=== PATIENT | female | born 1940 | race Caucasian/White ===

== ENCOUNTER 2016-09-10 22:31 | Emergency (ER) | payer MEDICARE, BC ==
[~2016-09-10 22:31] MED LIST: ALBU0.08 NEB; ALPR0.25 PO; ASPI325T PO; CITA20TA4 PO; DOCU1CAP39 PO; FELO10TA PO; HYDR-3516 PO; HYDR10TA23 PO; LANTINJ SQ; LEVA750T PO; LEVO-168 PO; METO25TA3 PO; QUIN40TA2 PO; SYMB160A INH; ZETI10TA5 PO
[2016-09-10 22:36] VITALS: BP 189/77; PULSE 86; RESP 20; TEMP 97.8; O2SAT 95
[2016-09-11] MEDS ORDERED: ACETAMINOPHEN/HYDROcodone 325 MG/5 MG TAB PO ONE (00:15)
--- NOTE | 2016-09-11 01:56 | PD ---
HPI Chief Complaint: Fall Time Seen by Provider: 23:53 Travel History International Travel<30 days: No Contact w/Intl Traveler<30days: No Traveled to known affect area: No History of Present Illness HPI This is a 75-year-old female who presents to the emergency department having had a mechanical fall where she slipped because she had some lotion in her socks and hit her head. She does take a baby aspirin every day. She is reporting a moderate severity headache, constant, worse with movement, improved with rest and also has severe pain from her right elbow up to her right shoulder. She also has pain in her right knee and is having some difficulty walking. She did not lose consciousness and has not vomited. PFSH Past Medical History Hx Anticoagulant Therapy: Yes (ASPIRIN ) Arthritis: Yes Asthma: Yes Anxiety: Yes Depression: Yes Heart Rhythm Problems: Yes (Irregular) Cancer: No Cardiac Catheterization: Yes Cardiovascular Problems: Yes (Stent) High Cholesterol: Yes Chest Pain: No Congestive Heart Failure: No COPD: No Cerebrovascular Accident: No Diabetes: Yes Patient Takes Glucophage: No Diminished Hearing: No Diverticulitis: Yes Endocrine: Yes Gastrointestinal Disorders: Yes (Diverticulatis, Abdominal Surgery) GERD: Yes Genitourinary: No Headaches: No Hepatitis: No Hiatal Hernia: Yes Hypertension: Yes Immune Disorder: No Implanted Vascular Access Dvce: Yes Kidney Stones: No Medical other: Yes (POLYPS) Musculoskeletal: Yes (Arthritis, Neck) Neurologic: Yes (Neuropathy ) Psychiatric: Yes Reproductive: No Respiratory: Yes Immunizations Current: No (PT ALLERGIC TO EGGS- DOES NOT GET IMMUNIZATIONS) Migraines: No Renal Failure: No Seizures: No Sleep Apnea: No Thyroid Disease: Yes (Hypothyrodism) Ulcer: Yes Menopausal: Yes : 4 Para: 4 Miscarriage: 0 : 0 Past Surgical History Abdominal Surgery: Yes (COLOSTOMY, REVERSAL OF COLOSTOMY) AICD: No Body Medical Devices: Cardiac stent, Bilateral knees Cardiac Surgery: Yes (CORONARY STENTS) Coronary Stent: Yes Ear Surgery: No Endocrine Surgery: No Eye Surgery: No Genitourinary Surgery: No Gynecologic Surgery: Yes (HYSTERECTOMY) Hysterectomy: Yes Joint Replacement: Yes (BETZAIDA. KNEES) Neurologic Surgery: No Oral Surgery: No Pacemaker: No Thoracic Surgery: No Other Surgery: Yes (Abdominal, Bilateral knee, Stent) Social History Alcohol Use: No Tobacco Use: No Substance Use: No Allergies-Medications (Allergen,Severity, Reaction): Coded Allergies: Egg Allergy (Verified Allergy, Severe, DYSPNEA, SWELLING, 09/10/16) WHEN MIXED WITH CULTURES FOR IMMUNIZATIONS Erythromycin (Verified Allergy, Severe, HIVES, TROUBLE BREATHING, 09/10/16) Iodine (Verified Allergy, Severe, SWELLING, 09/10/16) Molds and Smuts (Verified Allergy, Severe, ITCHING, 09/10/16) DYSPNEA Penicillin (Verified Allergy, Severe, STOPS BREATHING, 09/10/16) Seafood (Verified Allergy, Severe, HIVES, 09/10/16) Sulfa (Verified Allergy, Severe, STOPS BREATHING, "SULFA POISONING", ) Metformin (Verified Adverse Reaction, Severe, DIARRHEA, GASTRIC CRAMPING, 09/10/16) Morphine (Verified Adverse Reaction, Unknown, STATES MAKES HER "TOO SLEEPY " - REFUSES, 09/10/16) Uncoded Allergies: MERCURY (Allergy, Severe, 09/10/16) Reported Meds & Prescriptions Reported Meds & Active Scripts Active Metoprolol Tartrate 25 Mg Tab 25 Mg PO BID Dok (Docusate Sodium) 100 Mg Cap 100 Mg PO BID Reported Symbicort Inh (Budesonide/Formoterol Fumarate) 160-4.5 Mcg/Act Aero 1 Puff INH Q12HR Hydrocodone-Acetaminophen 5-325 mg Tab 1 Tab PO Q6H PRN Hydralazine (Hydralazine HCl) 10 Mg Tab 10 Mg PO TID Take with a meal Albuterol Neb (Albuterol Sulfate) 2.5 Mg/3 Ml Neb 2.5 Mg NEB QID NEB Alprazolam 0.25 Mg Tab 0.25 Mg PO Q12HR PRN Quinapril (Quinapril HCl) 40 Mg Tab 40 Mg PO BID Citalopram (Citalopram Hydrobromide) 20 Mg Tab 40 Mg PO DAILY Lantus Solostar Pen Inj (Insulin Glargine) 300 Unit/3 Ml Pen 40 Units SQ BID Aspirin 325 Mg Tab 81 Mg PO DAILY Zetia (Ezetimibe) 10 Mg Tab 10 Mg PO DAILY Levothyroxine (Levothyroxine Sodium) 112 Mcg Tab 125 Mcg PO DAILY Felodipine ER (Felodipine) 10 mg Tree 10 Mg PO DAILY Review of Systems Except as stated in HPI: all other systems reviewed are Neg Physical Exam Narrative GENERAL:Well appearing, no acute distress SKIN: Right periOrbital ecchymoses HEAD: Atraumatic. Normocephalic. EYES: Pupils equal and round. No injection or drainage. ENT: Moist mucous membranes NECK: Trachea midline. No cervical spine tenderness, full painless range of motion of the neck. CARDIOVASCULAR: Regular rate and rhythm. No murmur appreciated. Plus right radial pulse with normal capillary refill. RESPIRATORY: Clear to auscultation. Breath sounds equal bilaterally. GASTROINTESTINAL: Abdomen soft, non-tender, nondistended. MUSCULOSKELETAL: Severe pain with flexion and extension at the right elbow, tender to palpation along the medial and lateral epicondyles of the elbow and along the proximal humerus. Tender to palpation over the right patella with pain with flexion at the right knee. NEUROLOGICAL: Awake and alert. No obvious cranial nerve deficits. Moving all extremities. PSYCHIATRIC: Appropriate mood and affect; insight and judgment normal. Data Data Last Documented VS Vital Signs Date Time Temp Pulse Resp B/P Pulse Ox O2 Delivery O2 Flow Rate FiO2 09/11/16 00:00 68 18 09/10/16 22:36 97.8 189/[address] Brain W/O Iv Contrast(Rout) (09/11/16 ) Ct Facial Bones W/O Iv Cont (09/11/16 ) Humerus (Min 2vws) (09/11/16 ) Elbow, Limited (Ap&Lat) (09/11/16 ) Knee, Complete (4vws) (09/11/16 ) Acetamin-Hydrocod 325-5 Mg (Hardin 5-325 (09/11/16 00:15) Shoulder, Complete (>2vws) (09/11/16 ) [facility] Medical Decision Making Medical Screen Exam Complete: Yes Emergency Medical Condition: Yes Interpretation(s) Afebrile, no tachycardia, hypertensive Differential Diagnosis X-ray of the right shoulder: Findings suggestive of a nondisplaced fracture at the junction of the humeral head and greater tuberosity Narrative Course This is a 75-year-old female who presents to the emergency department having had a mechanical fall. She had a CT of the head and face which was reassuring with no evidence of intracranial hemorrhage. X-rays demonstrate a proximal humerus fracture. She has a normal neurovascular exam. Patient will be discharged with a sling and swath and will follow-up with orthopedics. Diagnosis Primary Impression: Proximal humerus fracture Qualified Code: S42.201A - Closed fracture of proximal end of right humerus, unspecified fracture morphology, initial encounter Referrals: Carlyle Hayes MD Patient Instructions: General Instructions Additional Instructions: If you develop numbness, weakness, severe pain or coolness of your hand return to the emergency room. Follow-up with orthopedics as soon as possible. Med/Other Pt SpecificInfo: No Change to Meds Disposition: 01 DISCHARGE HOME Condition: Stable Mame Coburn MD Sep 11, 2016 01:56
--- NOTE | 2016-09-11 03:24 | RADRPT ---
EXAM DATE/TIME: 09/11/2016 01:13 [facility] COMPARISON: No previous studies available for comparison. INDICATIONS : Right proximal humerus pain post fall. MEDICAL HISTORY : None. SURGICAL HISTORY : None. ENCOUNTER: Initial ACUITY: 1 day PAIN SCORE: 10/10 LOCATION: Right proximal humerus. FINDINGS: Mid shaft of the humerus is grossly intact. No fracture seen. There is unusual configuration to the humeral head suggesting widening. No radiopaque foreign bodies seen. CONCLUSION: 1. The shaft of the humerus is grossly intact. 2. Unusual configuration to the humeral head. Recommend 5 view examination of the right shoulder for further characterization John Chisholm MD on September 11, 2016 at 3:21 Board Certified Radiologist. This report was verified electronically.
--- NOTE | 2016-09-11 03:25 | RADRPT ---
EXAM DATE/TIME: 09/11/2016 01:15 [facility] COMPARISON: No previous studies available for comparison. INDICATIONS : Right elbow pain post fall. MEDICAL HISTORY : None. SURGICAL HISTORY : None. ENCOUNTER: Initial ACUITY: 1 day PAIN SCORE: 2/10 LOCATION: Right elbow. FINDINGS: Two view examination of the right elbow demonstrates no soft tissue swelling, joint effusion, fractur e or dislocation. Bony mineralization is normal. CONCLUSION: No evidence of recent bony injury. John Chisholm MD on September 11, 2016 at 3:23 Board Certified Radiologist. This report was verified electronically.
--- NOTE | 2016-09-11 03:26 | RADRPT ---
EXAM DATE/TIME: 09/11/2016 01:16 [facility] COMPARISON: No previous studies available for comparison. INDICATIONS : Right knee pain post fall. MEDICAL HISTORY : None. SURGICAL HISTORY : Total knee replacement, right. ENCOUNTER: Initial ACUITY: 1 day PAIN SCORE: 6/10 LOCATION: Right knee. FINDINGS: 4 view examination of the knee was performed. Non-cemented total knee arthroplasty with intact hardw are. Osseous structures are in normal alignment. The suprapatellar soft tissues are normal in thick ness. No radiopaque foreign bodies. No fracture seen. CONCLUSION: Intact total knee arthroplasty. No evidence of recent bony injury. John Chisholm MD on September 11, 2016 at 3:23 Board Certified Radiologist. This report was verified electronically.
--- NOTE | 2016-09-11 03:39 | RADRPT ---
EXAM DATE/TIME: 09/11/2016 01:49 [facility] COMPARISON: No previous studies available for comparison. INDICATIONS : Trauma; fall. RADIATION DOSE: 45.79 CTDIvol (mGy) MEDICAL HISTORY : Hypertension. Cardiovascular disease Diabetes mellitus type 2. SURGICAL HISTORY : Hysterectomy. Colostomy.Total knee replacement, left.Total knee replacement, right ENCOUNTER: Initial ACUITY: 1 day PAIN SCALE: 6/10 LOCATION: cranial TECHNIQUE: Multiple contiguous axial images were obtained of the head. Using automated exposure control and adj ustment of the mA and/or kV according to patient size, radiation dose was kept as low as reasonably a chievable to obtain optimal diagnostic quality images. FINDINGS: CEREBRUM: The ventricles are normal for age. No evidence of midline shift, mass lesion, hemorrhage or acute in farction. No extra-axial fluid collections are seen. POSTERIOR FOSSA: The cerebellum and brainstem are intact. The 4th ventricle is midline. The cerebellopontine angle i s unremarkable. EXTRACRANIAL: The visualized portion of the orbits is intact. There is opacification of the right maxillary sinus, mucosal thickening in the left maxillary sinus, and opacified bilateral superior ethmoid air cells. SKULL: The calvaria is intact. No evidence of skull fracture. CONCLUSION: 1. No acute findings in the brain. 2. Bilateral maxillary and ethmoid sinus disease. John Chisholm MD on September 11, 2016 at 3:36 Board Certified Radiologist. This report was verified electronically.
--- NOTE | 2016-09-11 03:41 | RADRPT ---
EXAM DATE/TIME: 09/11/2016 01:49 [facility] COMPARISON: No previous studies available for comparison. INDICATIONS : Trauma; fall. RADIATION DOSE: 36.81 CTDIvol (mGy) MEDICAL HISTORY : Hypertension. Cardiovascular disease Diabetes mellitus type 2. SURGICAL HISTORY : Hysterectomy. Colostomy.Total knee replacement, left.Total knee replacement, right ENCOUNTER: Initial ACUITY: 1 day PAIN SCORE: 6/10 LOCATION: facial TECHNIQUE: Volumetric scanning of the facial bones was performed. Using automated exposure control and adjustme nt of the mA and/or kV according to patient size, radiation dose was kept as low as reasonably achiev able to obtain optimal diagnostic quality images. FINDINGS: ORBITS: The orbital and infraorbital osseous structures are intact. The retroconal structures have a normal configuration. No radiopaque foreign bodies are seen. NASAL BONE: The nasal bone and maxillary spine are intact ZYGOMATIC ARCHES: Symmetric without evidence of fracture. SINUSES: Opacification of the right maxillary sinus, diffuse mucosal thickening in the left maxillary sinus, o pacified mid and superior ethmoid air cells, mucosal thickening in the lateral recess of the right sp henoid sinus, and mucosal thickening in the medial aspect of both frontal sinuses. NASAL CAVITY: The nasal septum is intact and midline. The lacrimal ducts are intact. SOFT TISSUES: No radiopaque foreign bodies seen. No soft-tissue swelling is seen. INTRACRANIAL: No intracranial air seen. CRIBIFORM PLATE: Grossly intact. CONCLUSION: 1. No facial bone fracture seen. 2. Pansinus disease. John Chisholm MD on September 11, 2016 at 3:37 Board Certified Radiologist. This report was verified electronically.
--- NOTE | 2016-09-11 04:33 | RADRPT ---
EXAM DATE/TIME: 09/11/2016 03:13 [facility] COMPARISON: No previous studies available for comparison. INDICATIONS : Right shoulder pain post fall. MEDICAL HISTORY : None. SURGICAL HISTORY : None. ENCOUNTER: Initial ACUITY: 1 day PAIN SCORE: 10/10 LOCATION: Right shoulder. FINDINGS: 4 view examination of the shoulder demonstrates normal alignment of the proximal humerus with the gle noid. There is a lucency seen at the junction of the greater tuberosity and humeral head, discernibl e on 3 of the 4 views, suggesting a nondisplaced fracture. The a.c. joint is intact. The visualized right upper ribs are intact. CONCLUSION: Findings suggestive nondisplaced fracture at the junction of the humeral head and greater tuberosity. John Chisholm MD on September 11, 2016 at 4:30 Board Certified Radiologist. This report was verified electronically.
[2016-09-11 05:09] VITALS: BP 165/92; PULSE 82; RESP 16; O2SAT 98
== END 2016-09-11 05:12 | disposition home or self-care (01) ==
LOC: NEPE 22:31
DX: S42.201A Unspecified fracture of upper end of right humerus, initial encounter for closed fracture (principal); R51 Headache; M25.561 Pain in right knee; E11.9 Type 2 diabetes mellitus without complications; I10 Essential (primary) hypertension; E03.9 Hypothyroidism, unspecified; E78.00 Pure hypercholesterolemia, unspecified; W01.10XA Fall on same level from slipping, tripping and stumbling with subsequent striking against unspecified object, initial encounter; Y93.9 Activity, unspecified; Y92.9 Unspecified place or not applicable; Z79.4 Long term (current) use of insulin
CPT/HCPCS: 29240; 70450; 70486; 73030; 73060; 73070; 73564

== ENCOUNTER 2016-10-11 12:37 | Inpatient (IN) | payer MEDICARE, BC ==
[~2016-10-11] VITALS: Ht 149.9 cm; Wt 97.1 kg
[2016-10-11] VITALS (14 sets, daily range): BP systolic 129–199; BP diastolic 54–91; PULSE 68–95; RESP 20–44; TEMP 97.8–97.9; O2SAT 97–100
[~2016-10-11 12:37] MED LIST changes: -LEVA750T PO
[2016-10-11] MEDS ORDERED: ALBUAER3 INH (13:07)
[2016-10-11] MEDS ORDERED: ASPI81CH7 CHEW (13:07)
[2016-10-11] MEDS ORDERED: ASTELIN NASAL (13:07)
[2016-10-11] MEDS ORDERED: HYDR200T3 PO (13:07)
[2016-10-11] MEDS ORDERED: methylPREDNISolone SOD SUCC 125 MG/2 ML VIAL IVP ONE (13:15)
[2016-10-11] MEDS ORDERED: SODIUM CHLORIDE 0.9% FLUSH 10 ML FLUSH IVF PRN (13:15)
[2016-10-11] MEDS ORDERED: cefTRIAXone INJ 1,000 MG in SODIUM CHLORIDE 0.9% INJ 100 ML IV ONE (13:15)
[2016-10-11] MEDS: RESP: ALBUTEROL 2.5 MG/IPRATROPIUM 0.5 MG NEB (SCH) INH ×2 (13:19→13:20)
[2016-10-11 13:26] LABS: AUTOMATED NEUTROPHIL # 7.1 TH/MM3 (1.8-7.7); BASOPHIL # 0.1 TH/MM3 (0-0.2); BASOPHIL % 1.4 % (0.0-2.0); EOSINOPHIL # 0.2 TH/MM3 (0-0.4); EOSINOPHIL % 2.4 % (0.0-4.0); HEMATOCRIT 33.6 % (35.0-46.0); HEMO FLAGS DIFF FINAL; LYMPH % 11.7 % (9.0-44.0); LYMPHOCYTE # 1.1 TH/MM3 (1.0-4.8); MEAN CELL VOLUME 80.1 FL (80.0-100.0); MEAN CORPUSCULAR HEMOGLOBIN 26.8 PG (27.0-34.0); MEAN CORPUSCULAR HGB CONC 33.4 % (32.0-36.0); MONO % 6.4 % (0.0-8.0); NEUT % 78.1 % (16.0-70.0); PLATELET COUNT 470 TH/MM3 (150-450); RED BLOOD COUNT 4.19 MIL/MM3 (4.00-5.30); RED CELL DISTRIBUTION WIDTH 15.5 % (11.6-17.2); WHITE BLOOD COUNT 9.1 TH/MM3 (4.0-11.0)
[2016-10-11 13:36] LABS: CHLORIDE 100 MEQ/L (98-107); POTASSIUM 4.5 MEQ/L (3.5-5.1); SODIUM (NA) 136 MEQ/L (136-145)
--- NOTE | 2016-10-11 13:37 | PD ---
HPI Chief Complaint: Respiratory Symptoms Time Seen by Provider: 12:54 Travel History International Travel<30 days: No Contact w/Intl Traveler<30days: No Traveled to known affect area: No History of Present Illness HPI 75-year-old female arrives to the ER complaining of dyspnea. She was seen at urgent care clinic and they diagnosed a left lung pneumonia. She complains of chills earlier today. Initially upon arrival due to dyspnea and anxiety and history is limited to that provided by the urgent care center paperwork. He sepsis/pneumonia protocol was initiated and the patient additionally received breathing treatments and Solu-Medrol. PFSH Past Medical History Hx Anticoagulant Therapy: Yes (ASA 325MG DAILY) Arthritis: Yes Asthma: Yes Anxiety: Yes Depression: Yes Heart Rhythm Problems: Yes (Irregular) Cancer: No Cardiac Catheterization: Yes Cardiovascular Problems: Yes (Stent) High Cholesterol: Yes Chest Pain: No Congestive Heart Failure: No COPD: No Cerebrovascular Accident: No Diabetes: Yes Patient Takes Glucophage: No Diminished Hearing: No Diverticulitis: Yes Endocrine: Yes Gastrointestinal Disorders: Yes (Diverticulatis, Abdominal Surgery) GERD: Yes Genitourinary: No Headaches: No Hepatitis: No Hiatal Hernia: Yes Hypertension: Yes Immune Disorder: No Implanted Vascular Access Dvce: Yes Kidney Stones: No Medical other: Yes (POLYPS) Musculoskeletal: Yes (Arthritis, Neck) Neurologic: Yes (Neuropathy ) Psychiatric: Yes Reproductive: No Immunizations Current: No (PT ALLERGIC TO EGGS- DOES NOT GET IMMUNIZATIONS) Migraines: No Renal Failure: No Seizures: No Sleep Apnea: No Thyroid Disease: Yes (Hypothyrodism) Ulcer: Yes Tetanus Vaccination: Unknown ?: Not Menopausal: Yes : 4 Para: 4 Miscarriage: 0 : 0 Past Surgical History Abdominal Surgery: Yes (COLOSTOMY, REVERSAL OF COLOSTOMY) AICD: No Body Medical Devices: Cardiac stent, Bilateral knees Cardiac Surgery: Yes (CORONARY STENTS) Coronary Stent: Yes Ear Surgery: No Endocrine Surgery: No Eye Surgery: No Genitourinary Surgery: No Gynecologic Surgery: Yes (HYSTERECTOMY) Hysterectomy: Yes Joint Replacement: Yes (BETZAIDA. KNEES) Neurologic Surgery: No Oral Surgery: No Pacemaker: No Thoracic Surgery: No Other Surgery: Yes (Abdominal, Bilateral knee, Stent) Social History Alcohol Use: No Tobacco Use: No Substance Use: No Allergies-Medications (Allergen,Severity, Reaction): Coded Allergies: Egg Allergy (Verified Allergy, Severe, DYSPNEA, SWELLING, 10/11/16) WHEN MIXED WITH CULTURES FOR IMMUNIZATIONS Erythromycin (Verified Allergy, Severe, HIVES, TROUBLE BREATHING, 10/11/16) Iodine (Verified Allergy, Severe, SWELLING, 10/11/16) Molds and Smuts (Verified Allergy, Severe, ITCHING, 10/11/16) DYSPNEA Penicillin (Verified Allergy, Severe, STOPS BREATHING, 10/11/16) Seafood (Verified Allergy, Severe, HIVES, 10/11/16) Sulfa (Verified Allergy, Severe, STOPS BREATHING, "SULFA POISONING", ) Metformin (Verified Adverse Reaction, Severe, DIARRHEA, GASTRIC CRAMPING, 10/11/16) Morphine (Verified Adverse Reaction, Unknown, STATES MAKES HER "TOO SLEEPY " - REFUSES, 10/11/16) Uncoded Allergies: MERCURY (Allergy, Severe, 09/10/16) Reported Meds & Prescriptions Reported Meds & Active Scripts Active Metoprolol Tartrate 25 Mg Tab 25 Mg PO BID Dok (Docusate Sodium) 100 Mg Cap 100 Mg PO BID Reported Proair Hfa 8.5 GM Inh (Albuterol Sulfate) 90 Mcg/Act Aer 1 Puff INH Q4H PRN 108 mcg/actuation Hydroxychloroquine (Hydroxychloroquine Sulfate) 200 Mg Tab 200 Mg PO DAILY Takw with food [Astelin Nasal] Aspirin Children's (Aspirin) 81 Mg Chew 81 Mg CHEW DAILY Symbicort Inh (Budesonide/Formoterol Fumarate) 160-4.5 Mcg/Act Aero 1 Puff INH Q12HR Hydrocodone-Acetaminophen 5-325 mg Tab 1 Tab PO Q6H PRN Hydralazine (Hydralazine HCl) 10 Mg Tab 10 Mg PO TID Take with a meal Albuterol Neb (Albuterol Sulfate) 2.5 Mg/3 Ml Neb 2.5 Mg NEB QID NEB Alprazolam 0.25 Mg Tab 0.25 Mg PO Q12HR PRN Quinapril (Quinapril HCl) 40 Mg Tab 40 Mg PO BID Citalopram (Citalopram Hydrobromide) 20 Mg Tab 40 Mg PO DAILY Lantus Solostar Pen Inj (Insulin Glargine) 300 Unit/3 Ml Pen 50 Units SQ BID Zetia (Ezetimibe) 10 Mg Tab 10 Mg PO DAILY Levothyroxine (Levothyroxine Sodium) 112 Mcg Tab 125 Mcg PO DAILY Felodipine ER (Felodipine) 10 mg Tree 10 Mg PO DAILY Review of Systems ROS Limitations: Clinical Condition Physical Exam Narrative GENERAL: 75-year-old female mild to moderate distress secondary to dyspnea or shortness of breath SKIN: Focused skin assessment warm/dry. HEAD: Atraumatic. Normocephalic. EYES: Pupils equal and round. No scleral icterus. No injection or drainage. ENT: No nasal bleeding or discharge. Mucous membranes pink and moist. NECK: Trachea midline. No JVD. CARDIOVASCULAR: Regular rate and rhythm. No murmur appreciated. RESPIRATORY: Minimal tachypnea. Minimal dyspnea. Diminished breath sounds L base. GASTROINTESTINAL: Abdomen soft, non-tender, nondistended. Hepatic and splenic margins not palpable. MUSCULOSKELETAL: No obvious deformities. No clubbing. No cyanosis. No edema. NEUROLOGICAL: Awake and alert. No obvious cranial nerve deficits. Motor grossly within normal limits. Normal speech. PSYCHIATRIC: Appropriate mood and affect; insight and judgment normal. Data Data Last Documented VS Vital Signs Date Time Temp Pulse Resp B/P Pulse Ox O2 Delivery O2 Flow Rate FiO2 10/11/16 13:21 28 99 2 10/11/16 13:20 Nasal Cannula 10/11/16 12:39 97.9 68 129/59 VS reviewed Orders Complete Blood Count With Diff (10/11/16 13:08) Basic Metabolic Panel (Bmp) (10/11/16 13:08) B-Type Natriuretic Peptide (10/11/16 13:08) Act Partial Throm Time (Ptt) (10/11/16 13:08) Prothrombin Time / Inr (Pt) (10/11/16 13:08) Ckmb (Isoenzyme) Profile (10/11/16 13:08) Troponin I (10/11/16 13:08) Blood Culture (10/11/16 13:08) Iv Access Insert/Monitor (10/11/16 13:08) Electrocardiogram (10/11/16 13:08) Ecg Monitoring (10/11/16 13:08) Oximetry (10/11/16 13:08) Oxygen Administration (10/11/16 13:08) Chest, Single Ap (10/11/16 13:08) Sodium Chloride 0.9% Flush (Ns Flush) (10/11/16 13:15) Methylprednisolone So Succ Inj (Solumedr (10/11/16 13:15) Albuterol-Ipratropium Neb (Duoneb Neb) (10/11/16 13:15) Ceftriaxone Inj (Rocephin Inj) (10/11/16 13:15) Doxycycline Inj (Vibramycin Inj) (10/11/16 14:15) Lactic Acid (10/11/16 13:20) Lorazepam Inj (Ativan Inj) (10/11/16 13:45) CKMB (10/11/16 13:15) CKMB% (10/11/16 13:15) Admit Order (Ed Use Only) (10/11/16 14:48) Labs Laboratory Tests Test 10/11/16 13:15 White Blood Count 9.1 TH/MM3 Red Blood Count 4.19 MIL/MM3 Hemoglobin 11.2 GM/DL Hematocrit 33.6 % Mean Corpuscular Volume 80.1 FL Mean Corpuscular Hemoglobin 26.8 PG Mean Corpuscular Hemoglobin 33.4 % Concent Red Cell Distribution Width 15.5 % Platelet Count 470 TH/MM3 Mean Platelet Volume 7.8 FL Neutrophils (%) (Auto) 78.1 % Lymphocytes (%) (Auto) 11.7 % Monocytes (%) (Auto) 6.4 % Eosinophils (%) (Auto) 2.4 % Basophils (%) (Auto) 1.4 % Neutrophils # (Auto) 7.1 TH/MM3 Lymphocytes # (Auto) 1.1 TH/MM3 Monocytes # (Auto) 0.6 TH/MM3 Eosinophils # (Auto) 0.2 TH/MM3 Basophils # (Auto) 0.1 TH/MM3 CBC Comment DIFF FINAL Differential Comment Prothrombin Time 10.0 SEC Prothromb Time International 0.9 RATIO Ratio Activated Partial 26.1 SEC Thromboplast Time D-Dimer Quantitative (PE/DVT) 0.56 MG/L FEU Sodium Level 136 MEQ/L Potassium Level 4.5 MEQ/L Chloride Level 100 MEQ/L Carbon Dioxide Level 23.4 MEQ/L Anion Gap 13 MEQ/L Blood Urea Nitrogen 17 MG/DL Creatinine 1.10 MG/DL Estimat Glomerular Filtration 48 ML/MIN Rate Random Glucose 220 MG/DL Lactic Acid Level 4.1 mmol/L Calcium Level 8.5 MG/DL Total Creatine Kinase 119 U/L Creatine Kinase MB 2.0 NG/ML Troponin I LESS THAN 0.02 NG/ML B-Type Natriuretic Peptide 41 PG/ML MDM Medical Decision Making Medical Screen Exam Complete: Yes Emergency Medical Condition: Yes Medical Record Reviewed: Yes Differential Diagnosis PNA, copd exacerbation, renal failure, sepsis, anemia, esrd Narrative Course CBC & BMP Diagram 10/11/16 13:15 LA 4.1 TSH 3.41 Tn < 0.02 Pt will be admitted for a L base pna and dyspnea. She improved with breathing treatments. Quite anxious 0.5 ativan given. d/w Dr Dupont. Diagnosis Primary Impression: PNA (pneumonia) Qualified Code: J18.1 - Pneumonia of left lower lobe due to infectious organism Additional Impression: Dyspnea Qualified Code: R06.00 - Dyspnea, unspecified type Admitting Information Admitting Physician Requests: AdmKaden Roy MD Oct 11, 2016 13:37
[2016-10-11 13:39] LABS: ANION GAP 13 MEQ/L (5-15); BICARBONATE 23.4 MEQ/L (21.0-32.0)
[2016-10-11 13:40] LABS: BLOOD UREA NITROGEN 17 MG/DL (7-18)
[2016-10-11 13:43] LABS: GLOMERULAR FILTRATION RATE 48 ML/MIN (>89)
[2016-10-11] MEDS ORDERED: LORazepam 2 MG/ML VIAL IV PUSH ONE (13:45)
[2016-10-11 13:46] LABS: CREATINE KINASE 119 U/L (26-192)
--- NOTE | 2016-10-11 13:51 | RADHPO ---
EXAM DATE/TIME: 10/11/2016 13:19 [facility] COMPARISON: CHEST SINGLE AP, June 16, 2016, 4:35. INDICATIONS : Shortness of breath and fever. MEDICAL HISTORY : Afib. Asthma. Hiatal hernia. Diabetes. SURGICAL HISTORY : Coronary stents. Cardiac cath. ENCOUNTER: Initial ACUITY: 1 day PAIN SCORE: 0/10 LOCATION: Bilateral chest FINDINGS: A single view of the chest demonstrates the lungs to be symmetrically aerated without evidence of mas s, infiltrate or effusion. The cardiomediastinal contours are unremarkable. Osseous structures are intact. CONCLUSION: No acute disease. Hector An MD on October 11, 2016 at 13:49 Board Certified Radiologist. This report was verified electronically.
[2016-10-11 13:52] LABS: APTT (PATIENT) 26.1 SEC (24.3-30.1); INTERNATIONAL NORMALIZED RATIO 0.9 RATIO
[2016-10-11] MEDS ORDERED: DOXYCYCLINE INJ 100 MG in SODIUM CHLORIDE 0.9% INJ 100 ML IV ONE (14:15)
[2016-10-11] MEDS ORDERED: NALOXONE HCL 0.4 MG/ML AMP IV PRN (15:00)
[2016-10-11] MEDS ORDERED: SODIUM CHLORIDE 0.9% FLUSH 10 ML FLUSH IV FLUSH PRN (15:00)
[2016-10-11] MEDS: LEVOFLOXACIN 750 MG PREMIX INJ 150 ML IV SCH (15:29)
[2016-10-11] MEDS: RESP: ALBUTEROL 2.5 MG/3 ML NEB (SCH) INH ×2 (15:50→20:00)
[2016-10-11 16:22] LABS: BLOOD, URINE NEG (NEG); GLUCOSE,URINE NEG (NEG); KETONE, URINE TRACE mg/dL (NEG); NITRITE,URINE NEG (NEG)
[2016-10-11] MEDS: ALPRAZolam 0.25 MG TAB PO PRN (16:27)
--- NOTE | 2016-10-11 16:32 | HHI.HP ---
[facility] [place] Jeimy Fontenot MD Admission Diagnosis PNA (L Lung Base) Diagnoses: (1) Shortness of breath Diagnosis: Principal (2) Chest pain Diagnosis: Principal (3) Lactic acidosis Diagnosis: Principal (4) Nausea & vomiting Diagnosis: Principal Chief Complaint: Chest pain and shortness of breath Travel History International Travel<30 Days: No Contact w/Intl Traveler <30 Da: No Traveled to Known Affected Are: No Sepsis Criteria SIRS Criteria (2 or more): RR > 20 or PaCO2 < 32 Sepsis Criteria (SIRS+source): Infect source susp/known Severe Sepsis (+one): Lactate >2 Septic Shock Criteria: Lactic acid >=4 History of Present Illness 75-year-old female with rather significant chronic medical illnesses of hypertension, diabetes, coronary artery disease, chronic obstructive pulmonary disease, arthritis, bowel obstructions requiring multiple resections, multiple abdominal hernias, fibromyalgia who presented to hospital because of acute onset of shortness of breath and chest pain. Patient states that she has a plethora of multiple symptoms to include general malaise, sinus congestion, nausea, fatigue, body aches, shortness of breath, chest pain that is been going on for approximately 3 days. Her symptoms progressed got worse and that 2:00 this morning and she had to get up and use her breathing machine without any significant improvement. The patient came to emergency department this morning for further evaluation. Patient was found to have multiple abnormalities to include hypoxia requiring oxygen, lactic acidosis and is recommended that the patient be admitted for further evaluation management. Tried to do further studies, however patient is refusing to have blood gas performed and possibly will refuse to have any further laboratory studies performed. Upon evaluating the patient she does look mildly uncomfortable lying in the bed. Review of Systems Constitutional: COMPLAINS OF: Fatigue, DENIES: Diaphoretic episodes, Fever, Weight gain, Weight loss, Chills, Dizziness, Change in appetite, Night Sweats Eyes: DENIES: Blurred vision, Diplopia, Eye inflammation, Eye pain, Vision loss , Photosensitivity, Double Vision Ears, nose, mouth, throat: DENIES: Tinnitus, Hearing loss, Vertigo, Nasal discharge, Oral lesions, Throat pain, Hoarseness, Ear Pain, Running Nose, Epistaxis, Sinus Pain, Toothache, Odynophagia Respiratory: COMPLAINS OF: Cough, Sputum production, Shortness of breath, DENIES: Apneas, Snoring, Wheezing, Hemoptysis Cardiovascular: COMPLAINS OF: Chest pain, DENIES: Palpitations, Syncope, Dyspnea on Exertion, Lower Extremity Edema, Orthopnea Gastrointestinal: COMPLAINS OF: Abdominal pain, Nausea, DENIES: Black stools, Bloody stools, Constipation, Diarrhea, Vomiting, Difficulty Swallowing, Anorexia Neurologic: DENIES: Abnormal gait, Headache, Localized weakness, Paresthesias, Seizures, Speech Problems, Tremor, Poor Balance Past Family Social History Past Medical History Hypertension Diabetes Fibromyalgia Chronic obstructive pulmonary disease Coronary artery disease Hypothyroidism Hyperlipidemia Gastroesophageal reflux Arthritis Lumbar stenosis Rheumatoid arthritis Past Surgical History Bilateral knee replacements Cardiac catheterization with cardiac stenting Hysterectomy Exploratory laparotomies Sigmoid resection and colostomy Reverse of colostomy Ventral hernia repair Exploratory laparotomy lysis of adhesions and bowel resection Reported Medications Reported Meds & Active Scripts Active Metoprolol Tartrate 25 Mg Tab 25 Mg PO BID Dok (Docusate Sodium) 100 Mg Cap 100 Mg PO BID Reported Proair Hfa 8.5 GM Inh (Albuterol Sulfate) 90 Mcg/Act Aer 1 Puff INH Q4H PRN 108 mcg/actuation Hydroxychloroquine (Hydroxychloroquine Sulfate) 200 Mg Tab 200 Mg PO DAILY Takw with food [Astelin Nasal] Aspirin Children's (Aspirin) 81 Mg Chew 81 Mg CHEW DAILY Symbicort Inh (Budesonide/Formoterol Fumarate) 160-4.5 Mcg/Act Aero 1 Puff INH Q12HR Hydrocodone-Acetaminophen 5-325 mg Tab 1 Tab PO Q6H PRN Hydralazine (Hydralazine HCl) 10 Mg Tab 10 Mg PO TID Take with a meal Albuterol Neb (Albuterol Sulfate) 2.5 Mg/3 Ml Neb 2.5 Mg NEB QID NEB Alprazolam 0.25 Mg Tab 0.25 Mg PO Q12HR PRN Quinapril (Quinapril HCl) 40 Mg Tab 40 Mg PO BID Citalopram (Citalopram Hydrobromide) 20 Mg Tab 40 Mg PO DAILY Lantus Solostar Pen Inj (Insulin Glargine) 300 Unit/3 Ml Pen 50 Units SQ BID Zetia (Ezetimibe) 10 Mg Tab 10 Mg PO DAILY Levothyroxine (Levothyroxine Sodium) 112 Mcg Tab 125 Mcg PO DAILY Felodipine ER (Felodipine) 10 mg Tree 10 Mg PO DAILY Allergies: Coded Allergies: Egg Allergy (Verified Allergy, Severe, DYSPNEA, SWELLING, 10/11/16) WHEN MIXED WITH CULTURES FOR IMMUNIZATIONS Erythromycin (Verified Allergy, Severe, HIVES, TROUBLE BREATHING, 10/11/16) Iodine (Verified Allergy, Severe, SWELLING, 10/11/16) Molds and Smuts (Verified Allergy, Severe, ITCHING, 10/11/16) DYSPNEA Penicillin (Verified Allergy, Severe, STOPS BREATHING, 10/11/16) Seafood (Verified Allergy, Severe, HIVES, 10/11/16) Sulfa (Verified Allergy, Severe, STOPS BREATHING, "SULFA POISONING", ) Metformin (Verified Adverse Reaction, Severe, DIARRHEA, GASTRIC CRAMPING, 10/11/16) Morphine (Verified Adverse Reaction, Unknown, STATES MAKES HER "TOO SLEEPY " - REFUSES, 10/11/16) Uncoded Allergies: MERCURY (Allergy, Severe, 09/10/16) Social History Patient denies any tobacco or illicit drugs. Very rare alcohol use Physical Exam Vital Signs Vital Signs Date Time Temp Pulse Resp B/P Pulse Ox O2 Delivery O2 Flow Rate FiO2 10/11/16 14:59 71 20 149/66 100 Room Air 10/11/16 13:21 28 99 2 10/11/16 13:20 99 Nasal Cannula 4.00 10/11/16 13:19 97 Nasal Cannula 2 10/11/16 12:52 28 98 Room Air 10/11/16 12:39 97.9 68 30 129/59 97 Physical Exam GENERAL: Well-developed, well-nourished, in no acute distress. alert and orientated HEENT: Head is normocephalic without any lesions or masses noted. Facial features are symmetric. Eyes: Pupils equal round reactive to light. Extraocular muscles are intact. Conjunctivae were clear. Oropharyngeal: Pharynx without any erythema edema. Tongue is midline without deviation. Buccal mucosa is moist without any masses or lesions NECK: Supple without any masses. Trachea midline no deviation. No JVD, no bruits are appreciated CARDIAC: Regular rhythm, regular rate. S1/S2 are heard. No murmurs gallops or rubs. LUNGS: Distant lung sounds with scattered wheeze. No rhonchi or rales. No use of accessory muscles on inspiration or expiration. ABDOMEN: Soft, nontender. Nondistended. Bowel sounds heard in all 4 quadrants. No organomegaly or masses. Negative rebound, negative guarding EXTREMITIES: No edema, pulses are equal bilaterally. No cyanosis or clubbing NEUROLOGY: Mood and affect appear appropriate. Cranial nerves II through XII grossly intact. Muscle strength 5/5 in upper and lower extremities bilaterally. Deep tendon reflexes are 2+ in upper and lower extremities bilaterally. Laboratory Laboratory Tests Test 10/11/16 10/11/16 13:15 15:20 White Blood Count 9.1 Red Blood Count 4.19 Hemoglobin 11.2 Hematocrit 33.6 Mean Corpuscular Volume 80.1 Mean Corpuscular Hemoglobin 26.8 Mean Corpuscular Hemoglobin 33.4 Concent Red Cell Distribution Width 15.5 Platelet Count 470 Mean Platelet Volume 7.8 Neutrophils (%) (Auto) 78.1 Lymphocytes (%) (Auto) 11.7 Monocytes (%) (Auto) 6.4 Eosinophils (%) (Auto) 2.4 Basophils (%) (Auto) 1.4 Neutrophils # (Auto) 7.1 Lymphocytes # (Auto) 1.1 Monocytes # (Auto) 0.6 Eosinophils # (Auto) 0.2 Basophils # (Auto) 0.1 CBC Comment DIFF FINAL Differential Comment Prothrombin Time 10.0 Prothromb Time International 0.9 Ratio Activated Partial 26.1 Thromboplast Time D-Dimer Quantitative (PE/DVT) 0.56 Sodium Level 136 Potassium Level 4.5 Chloride Level 100 Carbon Dioxide Level 23.4 Anion Gap 13 Blood Urea Nitrogen 17 Creatinine 1.10 Estimat Glomerular Filtration 48 Rate Random Glucose 220 Lactic Acid Level 4.1 5.2 Calcium Level 8.5 Total Creatine Kinase 119 Creatine Kinase MB 2.0 Troponin I LESS THAN 0.02 B-Type Natriuretic Peptide 41 Thyroid Stimulating Hormone 3.410 3rd Gen Date/Time Procedure Status Source Growth 10/11/16 13:22 Aerobic Blood Culture Received Blood Peripheral Pending 10/11/16 13:22 Anaerobic Blood Culture Received Blood Peripheral Pending Result Diagram: 10/11/16 1315 10/11/16 1315 Imaging Last Impressions Chest X-Ray 10/11/16 1308 Signed Impressions: Service Date/Time: Tuesday, October 11, 2016 13:19 - CONCLUSION: No acute disease. Hector An MD Septic Shock Reassessment Heart: Regular rate and rhythm Lungs: Other (wheezes) Skin: Warm, Moist Peripheral Pulses: Bounding Right Radial Bounding Left Radial Capillary Refill: Brisk, <2 seconds Assessment and Plan Assessment and Plan //Chest pain with associated shortness of breath, nausea Chest pain has been going on for probably 3 days, cardiac enzymes are unremarkable for any acute event, BMP is negative to indicate any congestive heart failure D-dimer performed which is 0.56, unable do CTA of the chest due to iodine allergy We'll perform VQ scan to rule out any pulmonary emboli Patient refusing to have blood gas analysis Obtain echocardiogram //Shortness of breath, dyspnea, hypoxia possible chronic obstructive pulmonary disease exacerbation Continue O2 supplementation maintain O2 sats greater 92% Duo nebs Incentive spirometry Levaquin 750 mg IV daily Solu-Medrol 40 every 6 hours //Lactic acidosis, unknown etiology at this time Could be from multiple etiologies to include infection, PE, mesenteric ischemia. Patient with multiple abdominal surgeries, hernias, Continue follow lactic acid level May need to pursue further studies to evaluate for mesenteric ischemia, if continues to worsen however would put patient at risk for renal complications due to contrast Continue monitor for infection with blood cultures, obtain influenza testing, Legionella, pneumococcal testing //Acute renal failure superimposed on chronic kidney disease stage 3: Start conservative IV fluids and continue monitor renal function Avoid nephrotoxins //Diabetes, insulin-dependent Accu-Cheks with sliding scale insulin Levemir 10 units every 12 hours //Chronic medical illnesses to include hyperlipidemia, anxiety, depression, hypothyroidism, rheumatoid arthritis, hypertension Continue home medications //Medical treatment noncompliance: Medical management discussed multiple times with a patient with present. It was recommended that further testing be performed to include arterial blood gas for further evaluation management. Patient continued to refuse to have further testing performed. //DVT prevention Start subcutaneous heparin Written by Manjit Hernandez PA-C, acting as scribe for Dr. Dupont on 10/11/16 at 1600. All or portions of this note were transcribed by scribe [Manjit Hernandez PA-C] . I, Dr. Christ Dupont personally performed the history, physical exam, and medical decision making; and confirmed the accuracy of the information in the transcribed note. Authenticated by Dr. Christ Dupont on 10/11/16 at 17:36. Code Status CODE STATUS was discussed with the patient with at bedside. She does not want any heroic measures to include intubation or CPR to be performed. Physician Certification 2 Midnight Certification Type: Admission for Inpatient Services Order for Inpatient Services The services are ordered in accordance with Medicare regulations or non- Medicare payer requirements, as applicable. In the case of services not specified as inpatient-only, they are appropriately provided as inpatient services in accordance with the 2-midnight benchmark. Estimated LOS (days): 3 days is the estimated time the patient will need to remain in the hospital, assuming treatment plan goals are met and no additional complications. Post-Hospital Plan: Not yet determined Problem Qualifiers (1) Nausea & vomiting: Qualified Code: R11.2 - Nausea and vomiting, intractability of vomiting not specified, unspecified vomiting type Manjit Hernandez Oct 11, 2016 16:32 Christ Dupont MD Oct 11, 2016 17:36
[2016-10-11 16:35] LABS: COMMENT (UR) CULT NOT INDICATED; CULTURE IF INDICATED CULT NOT INDICATED; SQUAMOUS EPITHELIAL CELL URINE 0-5 /hpf (0-5); URINE COLOR YELLOW (YELLW/STRAW); WBC, URINE 0-2 /hpf (0-5)
[2016-10-11] MEDS: INSULIN ASPART SUPPLEMENTAL SCALE SQ SCH ×2 (16:41→21:18)
[2016-10-11 17:25] LABS: LACTIC ACID GHOST NOT REPORTABLE
[2016-10-11] MEDS ORDERED: HEPARIN SODIUM - SQ 10,000 UNITS/ML VIAL SQ SCH (18:00)
[2016-10-11] MEDS ORDERED: LIDOCAINE-PRILOCAIN 2.5% CREAM 5 GM TUBE TOPICAL ONE (18:00)
[2016-10-11] MEDS: methylPREDNISolone SOD SUCC 40 MG/1 ML VIAL IV PUSH SCH ×2 (18:13→23:58)
[2016-10-11] MEDS ORDERED: HEPARIN SODIUM - IV 10,000 UNITS/10 ML VIAL IV ONE (18:15)
[2016-10-11] MEDS ORDERED: ONDANSETRON HCL 4 MG/2 ML VIAL IV PUSH PRN (18:15)
[2016-10-11] MEDS ORDERED: HEPARIN-D5W INJ 250 ML IV SCH (18:15)
[2016-10-11] MEDS ORDERED: cloNIDine HCL 0.1 MG TAB PO PRN (18:15)
[2016-10-11] MEDS ORDERED: SODIUM CHLOR 0.9% 1000 ML INJ 1,000 ML IV ONE ×2 (18:15→19:15)
[2016-10-11 18:42] LABS: BLOOD GAS BASE EXCESS -7.8 mmol/L (-2-2); BLOOD GAS CARBOXYHEMOGLOBIN 1.6 % (0-4); BLOOD GAS HCO3 16 mmol/L (22-26); BLOOD GAS METHEMOGLOBIN 1.1 % (0-2); BLOOD GAS O2 HGB SATURATION 97 % (90-100); BLOOD GAS OXYGEN CONTENT 15.2 Vol % (12.0-20.0); BLOOD GAS PCO2 24 mmHG (38-42); BLOOD GAS PO2 127 mmHG (61-120); CRITICAL VALUE YES; OXYGEN DEVICE NASAL CANNULA; TEMP CORR TO 98.6
[2016-10-11 18:43] LABS: DRAW SITE LT RADIAL; LITER FLOW 2 L/M; NUMBER OF ARTERIAL PUNCTURES 1; STAT YES; ULNAR PULSE PRESENT
--- NOTE | 2016-10-11 19:26 | RADHPO ---
EXAM DATE/TIME: 10/11/2016 18:49 [facility] COMPARISON: CHEST SINGLE AP, October 11, 2016, 13:19. INDICATIONS : Shortness of breath for 1 day. Left lung pneumonia and asthma. DOSE: 8.1 mCi Tc99m MAA IV 0.9 mCi Tc99m DTPA aerosol MEDICAL HISTORY : Hypertension. Hypothyroidism. SURGICAL HISTORY : Coronary artery stent. Hysterectomy. Bilateal knee surgery. ENCOUNTER: Initial ACUITY: 1 day PAIN SCALE: 2/10 LOCATION: Bilateral chest TECHNIQUE: Following five minutes of tidal breathing of DTPA aerosol, planar images of the lungs were performed in eight projections. The patient was then injected with MAA, and eight-view perfusion scan was perf ormed. FINDINGS: There is a mildly inhomogeneous pattern of aerosol delivery to the periphery of both lungs. There is a wedgelike focal defect involving the right midlung. The perfusion lung scan demonstrates a fairly homogenous pattern of uptake in both lungs. No segment al or subsegmental defects are seen. CONCLUSION: Low probability for pulmonary embolism. Stephen Kincaid MD on October 11, 2016 at 19:22 Board Certified Radiologist. This report was verified electronically.
[2016-10-11] MEDS ORDERED: THIAMINE INJ 100 MG in SODIUM CHLORIDE 0.9% INJ 100 ML IV ONE (20:00)
[2016-10-11] MEDS: metroNIDAZOLE 500 MG INJ 100 ML IV SCH (20:09)
[2016-10-11 20:36] LABS: HEMATOCRIT 35.5 % (35.0-46.0); MEAN CELL VOLUME 81.9 FL (80.0-100.0); MEAN CORPUSCULAR HEMOGLOBIN 26.6 PG (27.0-34.0); MEAN CORPUSCULAR HGB CONC 32.5 % (32.0-36.0); PLATELET COUNT 445 TH/MM3 (150-450); RED BLOOD COUNT 4.33 MIL/MM3 (4.00-5.30); RED CELL DISTRIBUTION WIDTH 15.9 % (11.6-17.2); REVIEW FLAG FINAL; WHITE BLOOD COUNT 11.8 TH/MM3 (4.0-11.0)
[2016-10-11 20:54] LABS: APTT (PATIENT) 26.8 SEC (24.3-30.1); PROTHROMBIN TIME - PATIENT 10.7 SEC (9.8-11.6)
[2016-10-11] MEDS: BUDESONIDE-FORMOTEROL 160/4.5 MCG INHALER INH SCH (20:58)
[2016-10-11] MEDS: LISINOPRIL 20 MG TAB PO SCH (20:59)
[2016-10-11] MEDS: METOPROLOL TARTRATE 25 MG TAB PO SCH (20:59)
[2016-10-11] MEDS: DOCUSATE SODIUM 100 MG CAP PO SCH (20:59)
[2016-10-11] MEDS ORDERED: INSULIN DETEMIR 100 UNITS/ML VIAL SQ SCH (21:00)
[2016-10-11] MEDS: SODIUM CHLORIDE 0.9% FLUSH 10 ML FLUSH IV FLUSH SCH (21:00)
[2016-10-11] MEDS ORDERED: ALPRAZolam 0.25 MG TAB PO ONE (21:00)
[2016-10-11] MEDS: INSULIN DETEMIR 100 UNITS/ML VIAL SQ SCH (21:17)
[2016-10-11] MEDS: ACETAMINOPHEN/HYDROcodone 325 MG/5 MG TAB PO PRN (22:19)
[2016-10-11] MEDS: ENALAPRILAT 1.25 MG/ML VIAL IV PUSH PRN (22:24)
[2016-10-11] MEDS ORDERED: DIATRIZOATE MEGLUM/DIATRIZOATE SOD 9 ML CUP PO ONE (23:00)
[2016-10-12] VITALS (37 sets, daily range): BP systolic 129–187; BP diastolic 7–85; PULSE 68–92; RESP 20–40; TEMP 97.6–98.3; O2SAT 93–98
[2016-10-12] MEDS ORDERED: SODIUM CHLOR 0.9% 1000 ML INJ 1,000 ML IV ONE (00:15)
[2016-10-12] MEDS ORDERED: HEPARIN SODIUM - IV 10,000 UNITS/10 ML VIAL IV PRN ×2 (00:15)
[2016-10-12] MEDS ORDERED: CHLORHEXIDINE GLUCONATE 2 % 1 PACK (2 CLOTHS)(extra cloths) TOPICAL PRN (01:15)
--- NOTE | 2016-10-12 01:44 | RADHPO ---
EXAM DATE/TIME: 10/12/2016 01:06 This report includes an Addendum and supersedes previous reports for this exam. [facility] COMPARISON: CT ABDOMEN & PELVIS W/O CONTRAST, June 16, 2016, 6:10. INDICATIONS : Lactic acidosis. ORAL CONTRAST: Prescribed oral contrast ingested. RADIATION DOSE: 21.90 CTDIvol (mGy) MEDICAL HISTORY : Diverticulitis. Hernia, hiatal. Gastroesophageal reflux disease.Diabetes. hypertension. SURGICAL HISTORY : Hysterectomy. Coronary artery stent.Colostomy and reversal. ENCOUNTER: Initial ACUITY: 3 days PAIN SCALE: 5/10 LOCATION: Bilateral abdominal TECHNIQUE: Volumetric scanning of the abdomen and pelvis was performed. Using automated exposure control and ad justment of the mA and/or kV according to patient size, radiation dose was kept as low as reasonably achievable to obtain optimal diagnostic quality images. FINDINGS: LOWER LUNGS: The visualized lower lungs are clear. LIVER: Decreased attenuation without lesion. There is no dilation of the biliary tree. No calcified gallst ones. SPLEEN: Normal size without lesion. PANCREAS: Within normal limits. KIDNEYS: Normal in size and shape. There is no mass, stone, or hydronephrosis. ADRENAL GLANDS: Small adrenal lesion likely adenoma. VASCULAR: There is no aortic aneurysm. BOWEL/MESENTERY: Small hiatal hernia. There is no free intraperitoneal air or fluid. ABDOMINAL WALL: Within normal limits. RETROPERITONEUM: There is no lymphadenopathy. BLADDER: No wall thickening or mass. REPRODUCTIVE: Within normal limits. INGUINAL: There is no lymphadenopathy or hernia. MUSCULOSKELETAL: Within normal limits for patient age. CONCLUSION: 1. Hepatic steatosis. 2. Small hiatal hernia. 3. Right adrenal adenoma. Gutierrez Walsh MD on October 12, 2016 at 1:41 Board Certified Radiologist. This report was verified electronically. ADDENDUM: There is a moderate amount of stool within the colon but no evidence of bowel distraction. There is a small ventral hernia containing small bowel inferiorly without evidence for extraction. This is seen best on axial image 67 and coronal image 22. Bowel loops are unremarkable in appearance without evid ence for wall thickening, inflammatory stranding or pneumatosis. Hector An MD on October 12, 2016 at 9:17 Board Certified Radiologist. This report was verified electronically.
[2016-10-12] MEDS ORDERED: ALPRAZolam 0.25 MG TAB PO ONE (02:15)
[2016-10-12 02:39] LABS: AUTOMATED NEUTROPHIL # 13.6 TH/MM3 (1.8-7.7); BASOPHIL % 0.1 % (0.0-2.0); EOSINOPHIL % 0.2 % (0.0-4.0); HEMATOCRIT 32.2 % (35.0-46.0); LYMPH % 5.1 % (9.0-44.0); LYMPHOCYTE # 0.7 TH/MM3 (1.0-4.8); MEAN CELL VOLUME 80.7 FL (80.0-100.0); MEAN CORPUSCULAR HEMOGLOBIN 26.7 PG (27.0-34.0); MEAN CORPUSCULAR HGB CONC 33.1 % (32.0-36.0); MONO % 0.9 % (0.0-8.0); NEUT % 93.7 % (16.0-70.0); PLATELET COUNT 445 TH/MM3 (150-450); RED BLOOD COUNT 3.99 MIL/MM3 (4.00-5.30); WHITE BLOOD COUNT 14.4 TH/MM3 (4.0-11.0)
[2016-10-12 02:45] LABS: HEMO FLAGS DIFF FINAL
[2016-10-12 03:01] LABS: ALKALINE PHOSPHATASE 145 U/L (45-117); ALT (GPT) 25 U/L (10-53); ANION GAP 12 MEQ/L (5-15); AST (GOT) 16 U/L (15-37); BICARBONATE 19.7 MEQ/L (21.0-32.0); BLOOD UREA NITROGEN 13 MG/DL (7-18); CHLORIDE 108 MEQ/L (98-107); GLOMERULAR FILTRATION RATE 62 ML/MIN (>89); POTASSIUM 3.6 MEQ/L (3.5-5.1); SODIUM (NA) 140 MEQ/L (136-145); TOTAL BILIRUBIN ADULT 0.2 MG/DL (0.2-1.0)
[2016-10-12] MEDS: metroNIDAZOLE 500 MG INJ 100 ML IV SCH ×3 (03:32→21:29)
[2016-10-12] MEDS: SODIUM CHLOR 0.9% 1000 ML INJ 1,000 ML IV SCH ×2 (03:32→16:00)
[2016-10-12] MEDS: CHLORHEXIDINE GLUCONATE 2 % 1 PACK (2 CLOTHS)(taper/protocol) TOPICAL SCH (04:00)
[2016-10-12] MEDS: ACETAMINOPHEN/HYDROcodone 325 MG/5 MG TAB PO PRN ×3 (04:44→22:17)
[2016-10-12] MEDS: methylPREDNISolone SOD SUCC 40 MG/1 ML VIAL IV PUSH SCH ×3 (05:41→17:09)
[2016-10-12] MEDS ORDERED: LEVOTHYROXINE SODIUM 112 MCG TAB PO SCH (06:00)
[2016-10-12] MEDS: INSULIN ASPART SUPPLEMENTAL SCALE SQ SCH ×4 (06:39→21:45)
[2016-10-12] MEDS: INSULIN DETEMIR 100 UNITS/ML VIAL SQ SCH ×2 (08:04→21:45)
[2016-10-12] MEDS: EZETIMIBE 10 MG TAB PO SCH (08:05)
[2016-10-12] MEDS: ASPIRIN 81 MG CHEW TAB CHEW SCH (08:05)
[2016-10-12] MEDS: LISINOPRIL 20 MG TAB PO SCH ×2 (08:05→21:28)
[2016-10-12] MEDS: CITALOPRAM HYDROBROMIDE 20 MG TAB PO SCH (08:05)
[2016-10-12] MEDS: METOPROLOL TARTRATE 25 MG TAB PO SCH ×2 (08:05→21:28)
[2016-10-12] MEDS: DOCUSATE SODIUM 100 MG CAP PO SCH ×2 (08:10→21:36)
[2016-10-12] MEDS: SODIUM CHLORIDE 0.9% FLUSH 10 ML FLUSH IV FLUSH SCH ×2 (08:11→21:29)
[2016-10-12 08:38] LABS: LACTIC ACID GHOST NOT REPORTABLE
[2016-10-12] MEDS: RESP: ALBUTEROL 2.5 MG/3 ML NEB (SCH) INH ×4 (09:50→19:42)
[2016-10-12] MEDS: HYDROXYCHLOROQUINE SULFATE 200 MG TAB PO SCH (10:08)
[2016-10-12] MEDS: BUDESONIDE-FORMOTEROL 160/4.5 MCG INHALER INH SCH ×2 (10:10→21:35)
--- NOTE | 2016-10-12 11:30 | EKG ---
Date Performed: 10/11/2016 Time Performed: 13:40:12 PTAGE: 75 years EKG: Sinus rhythm Septal ST-T changes are nonspecific Borderline ECG PREVIOUS TRACING : 06/16/2016 04.55 DOCTOR: Kurt Manzo Interpretating Date/Time 10/12/2016 11:29:07
[2016-10-12] MEDS ORDERED: LORazepam 2 MG/ML VIAL IV PUSH ONE (11:45)
[2016-10-12] MEDS ORDERED: MAGNESIUM CITRATE SOLN 300 ML BTL PO ONE (13:00)
--- NOTE | 2016-10-12 13:34 | HHI.PR ---
Subjective Remarks patient says she is feeling much better this morning. Shortness of breath markedly improved. Patient seen later after lactate increased. She says that hernia popped out this morning when she was trying to have a bowel movement, subsequently went back in. She denies any abdominal pain currently. Objective Vitals Vital Signs Date Time Temp Pulse Resp B/P Pulse Ox O2 Delivery O2 Flow Rate FiO2 10/12/16 10:01 80 32 154/65 10/12/16 09:50 96 Nasal Cannula 2.00 10/12/16 08:01 80 21 163/62 10/12/16 08:00 97.8 10/12/16 08:00 86 10/12/16 07:01 86 32 173/75 93 10/12/16 07:00 86 27 93 10/12/16 06:08 88 28 187/7 97 10/12/16 06:06 88 10/12/16 05:01 84 30 186/77 96 10/12/16 04:00 82 10/12/16 04:00 98.3 82 28 178/83 95 10/12/16 03:01 82 26 180/77 95 10/12/16 02:02 74 24 177/73 96 10/12/16 02:00 80 10/12/16 01:03 77 28 176/69 98 10/12/16 00:01 97.6 80 28 173/77 98 10/12/16 00:00 80 10/11/16 23:03 84 37 172/66 97 10/11/16 22:12 97.8 90 38 199/91 97 10/11/16 22:00 94 10/11/16 21:19 97.9 92 39 171/75 97 10/11/16 21:00 88 42 10/11/16 20:37 84 36 164/54 98 10/11/16 20:37 97 Nasal Cannula 2.00 10/11/16 20:00 95 10/11/16 20:00 92 44 98 10/11/16 19:29 97.8 92 29 162/91 10/11/16 16:51 97.8 91 24 193/62 98 10/11/16 16:19 72 20 145/65 100 10/11/16 14:59 71 20 149/66 100 Room Air I/O 10/11/16 10/11/16 10/11/16 10/12/16/12/17 4/12/17 07:00 15:00 23:00 07:00 15:00 23:00 Intake Total 200 ml 2740 ml 3150 ml 450 ml Output Total 1200 ml 4450 ml 850 ml Balance 200 ml 1540 ml -1300 ml -400 ml Intake Oral 740 ml 1350 ml 450 ml IV Total 200 ml 2000 ml 1800 ml Output Urine Total 1200 ml 4450 ml 850 ml # Bowel Movements 0 2 Result Diagram: 10/12/1621910/12/16219 Imaging GENERAL: patient sitting in chair. Appears comfortable. Alert and oriented 3. SKIN: Warm and dry. HEAD: Normocephalic. EYES: No scleral icterus. No injection or drainage. NECK: Supple, trachea midline. No JVD. CARDIOVASCULAR: Regular rate and rhythm without murmurs, gallops, or rubs. RESPIRATORY: Breath sounds equal bilaterally. No accessory muscle use. GASTROINTESTINAL: Abdomen soft, non-tender, nondistended. no rebound or guarding. MUSCULOSKELETAL: No cyanosis, or edema. BACK: Nontender without obvious deformity. No CVA tenderness. A/P Assessment and Plan //Lactic acidosis, unknown etiology at this time Could be from multiple etiologies to include infection, mesenteric ischemia. Patient with multiple abdominal surgeries, abdominal hernias with possible intermittent incarceration, Continue follow lactic acid level which increased to 8.4 then dropped back down to 2.7 now going back to the 5.3 Obtaining MRA of the abdomen to evaluate for mesenteric ischemia Consult colorectal specialist Dr. Rockwell, who is known to the patient for further evaluation //Metabolic acidosis, non-anion gap with respiratory compensation No infectious sources noted this time. Renal functions appear to be improving Likely secondary to lactic acidosis. //Chest pain with associated shortness of breath, nausea, improved Chest pain has been going on for probably 3 days, cardiac enzymes are unremarkable for any acute event, BMP is negative to indicate any congestive heart failure D-dimer performed which is 0.56, unable do CTA of the chest due to iodine allergy VQ scan was done which did not indicate any pulmonary emboli Awaiting echocardiogram results //Shortness of breath, dyspnea, hypoxia possible chronic obstructive pulmonary disease exacerbation Continue O2 supplementation maintain O2 sats greater 92% Duo nebs Incentive spirometry Levaquin 750 mg IV daily Solu-Medrol 40 every 6 hours //Acute renal failure superimposed on chronic kidney disease stage 3: Resolved Conservative IV fluids and continue monitor renal function Avoid nephrotoxins //Diabetes, insulin-dependent, monitor closely since patient on steroids Accu-Cheks with sliding scale insulin Levemir 10 units every 12 hours //Chronic medical illnesses to include hyperlipidemia, anxiety, depression, hypothyroidism, rheumatoid arthritis, hypertension Continue home medications //DVT prevention Subcutaneous heparin Written by Manjit Hernandez PA-C, acting as scribe for Dr. Dupont on 10/12/16 at 1145. All or portions of this note were transcribed by scribe [Manjit Hernandez PA-C] . I, Dr. Christ Dupont personally performed the history, physical exam, and medical decision making; and confirmed the accuracy of the information in the transcribed note. Authenticated by Dr. Christ Dupont on 10/13/16 at 10:37. Manjit Hernandez Oct 12, 2016 13:34 Christ Dupont MD Oct 13, 2016 10:37
[2016-10-12] MEDS: ALPRAZolam 0.25 MG TAB PO PRN (14:24)
[2016-10-12] MEDS: LEVOFLOXACIN 750 MG PREMIX INJ 150 ML IV SCH (15:58)
[2016-10-12] MEDS ORDERED: GADODIAMIDE PF 287 MG/ML 10 ML VIAL (for RAD MRI) IV ONE (16:00)
--- NOTE | 2016-10-12 16:26 | RADHPO ---
EXAM DATE/TIME: 10/12/2016 15:10 [facility] COMPARISON: CT ABDOMEN & PELVIS W/O CONTRAST, October 12, 2016, 1:06. INDICATIONS : Abdominal pain. Ischemic bowel. CONTRAST: 30 cc Omniscan (gadodiamide) IV MEDICAL HISTORY : Diabetes mellitus type 2. Hypertension. Rheumatoid arthritis. SURGICAL HISTORY : Total knee replacement, left. Mastectomy, right. Abdominal surgeries. ENCOUNTER: Subsequent ACUITY: 2 day PAIN SCORE: 4/10 LOCATION: abdomen TECHNIQUE: Bolus infused MR angiography was performed. The data was postprocessed with a variety of visualizati on algorithms including full-volume maximum-intensity projection, multiplanar sliding thin slab refor mation, and curved planar reformation. FINDINGS: The abdominal aorta and iliacs are widely patent. There is mild proximal tapering of the celiac artery which is likely in part related to downward kink ing and tortuosity at the vessel origins. There is also a large calcific plaque adjacent to the vesse l origin noted on the CT comparison which may contribute to this appearance. The visualized superior mesenteric artery is widely patent. The JUNE is patent. Renal arteries appear patent satisfactory. CONCLUSION: 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 Widely patent SMA and patent JUNE. Dre Laguerre MD on October 12, 2016 at 16:20 Board Certified Radiologist. This report was verified electronically.
[2016-10-12 18:36] LABS: LACTIC ACID GHOST NOT REPORTABLE
[2016-10-12] MEDS ORDERED: THIAMINE HCL 100 MG TAB PO ONE (19:15)
--- NOTE | 2016-10-12 20:01 | EC ---
Study Study Date:10/12/2016 STUDY CONCLUSIONS SUMMARY - Left ventricle: The cavity size was normal. Wall thickness was increased in a pattern of mild LVH. There was concentric hypertrophy. Systolic function was normal. The estimated ejection fraction was in the range of 55% to 60%. Features are consistent with a pseudonormal left ventricular filling pattern, with concomitant abnormal relaxation and increased filling pressure (grade 2 diastolic dysfunction). - Mitral valve: Mildly calcified annulus. - Left atrium: The atrium was mildly dilated. If LV function is below 40, please consider prescribing an ACEI or ARB or document rationale for non-use. PROCEDURE DATA STUDY STATUS: Elective. Procedure: Transthoracic echocardiography. Image quality was good. Scanning was performed from the parasternal, apical, and subcostal acoustic windows. Study completion: The patient tolerated the procedure well. Transthoracic echocardiography. M-mode, complete 2D, complete spectral Doppler, and color Doppler. Height: Height: 59in. Weight: Weight: 210.6lb. Body mass index: BMI: 42.6kg/m^2. Body surface area: BSA: 1.89m^2. Patient status: Inpatient. CARDIAC ANATOMY LEFT VENTRICLE: The cavity size was normal. Wall thickness was increased in a pattern of mild LVH. There was concentric hypertrophy. Systolic function was normal. The estimated ejection fraction was in the range of 55% to 60%. Features are consistent with a pseudonormal left ventricular filling pattern, with concomitant abnormal relaxation and increased filling pressure (grade 2 diastolic dysfunction). AORTIC VALVE: The valve appears to be grossly normal. Doppler: There was no stenosis. No significant regurgitation. Valve area: 1.79cm^2 (Vmax). Indexed valve area: 0.95cm^2/m^2 (Vmax). Peak gradient: 14mm Hg (S). MITRAL VALVE: Mildly calcified annulus. Doppler: There was no evidence for stenosis. No significant regurgitation. Valve area by pressure half-time: 3.79cm^2. Indexed valve area by pressure half-time: 2.01cm^2/m^2. Peak gradient: 4mm Hg (D). LEFT ATRIUM: The atrium was mildly dilated. PULMONIC VALVE: Not well visualized. Doppler: There was no evidence for stenosis. No significant regurgitation. TRICUSPID VALVE: The valve appears to be grossly normal. Doppler: There was no evidence for stenosis. Trace regurgitation. PERICARDIUM: There was no pericardial effusion. Patient weight: 210.6lb _Ejection fraction:_ 65-75% _Fractional shortening:_ 32% up to 5Kg 5-11.5Kg 11.6-22.9Kg 23-45Kg 45-57Kg Aortic Root 7-13 <17 13-22 17-27 17-27 LA diam 6-13 <23 24-38 33-47 37-40 RVID 10-17 7-15 7-15 7-18 8-17 LVIDd 12-22 <32 24-38 33-47 37-40 LVPW 2-4 3-6 5-7 6-8 7-8 IVS 2-4 3-6 5-7 6-8 7-8 BASIC MEASUREMENTS ADULT NORMAL Left ventricle LV internal dimension, ED, chordal 44 mm 43-52 level, PLAX LV internal dimension, ES, chordal 30.5 mm 23-38 level, PLAX Fractional shortening, chordal level, 31 % >29 PLAX LV posterior wall thickness, ED 11.4 mm IVS/LVPW ratio, ED 1.01 <1.3 Volume, ED, MOD, 1-plane 91 ml Volume, ES, MOD, 1-plane 41 ml Ejection fraction, MOD, 1-plane 55 % Stroke volume, MOD, 1-plane 50 ml Volume index, ED, MOD, 1-plane 48 ml/m^2 Volume index, ES, MOD, 1-plane 22 ml/m^2 Stroke index, MOD, 1-plane 26.5 ml/m^2 Ventricular septum Septal thickness, ED 11.5 mm Aortic valve Leaflet separation 18 mm 15-26 Left atrium Anterior-posterior dimension 37 mm Anterior-posterior dimension index 1.96 cm/m^2 <2.2 Right ventricle RV internal dimension, ED, PLAX 28.6 mm 19-38 BASIC MEASUREMENTS ADULT NORMAL Aortic valve Leaflet separation 18 mm 15-26 Aorta Root diameter, ED 26 mm 20-37 Left atrium Anterior-posterior dimension, ES 39 mm 19-40 Anterior-posterior dimension index, ES 2.06 cm/m^2 <2.2 LA/aortic root ratio 1.5 DOPPLER MEASUREMENTS ADULT NORMAL Aortic valve Peak velocity, S 186 cm/s Peak gradient, S 14 mm Hg Valve area, Vmax 1.79 cm^2 Valve area index, Vmax 0.95 cm^2/m^2 Mitral valve Peak E-wave velocity 97.2 cm/s Peak A-wave velocity 100 cm/s Pressure half-time 58 ms Peak gradient, D 4 mm Hg Peak E/A ratio 1 Valve area, pressure half-time 3.79 cm^2 Valve area index, pressure half-time 2.01 cm^2/m^2 Tricuspid valve Regurgitant peak velocity 250 cm/s Peak RV-RA gradient, S 25 mm Hg Maximal regurgitant velocity 250 cm/s Pulmonic valve Peak velocity, S 122 cm/s LEGEND: Mean values are shown as u=mean value. Asterisk (*) omer values outside specified normal range. Prepared and signed by Isidoro Peña [id number]
[2016-10-12] MEDS ORDERED: ZOLPIDEM TARTRATE 5 MG TAB PO ONE (21:45)
[2016-10-12] MEDS ORDERED: GLUCAGON 1 MG/ML VIAL OTHER PRN (23:00)
[2016-10-12] MEDS ORDERED: DEXTROSE 50% IN WATER 50 ML VIAL(D50) IV PUSH PRN (23:00)
[2016-10-13] VITALS (28 sets, daily range): BP systolic 119–190; BP diastolic 42–108; PULSE 62–82; RESP 14–50; TEMP 97.7–98.2; O2SAT 94–98
[2016-10-13] MEDS: methylPREDNISolone SOD SUCC 40 MG/1 ML VIAL IV PUSH SCH ×2 (00:40→05:05)
[2016-10-13] MEDS: SODIUM CHLOR 0.9% 1000 ML INJ 1,000 ML IV SCH ×3 (00:42→18:50)
[2016-10-13] MEDS: LEVOTHYROXINE SODIUM 125 MCG TAB PO SCH (05:04)
[2016-10-13] MEDS: metroNIDAZOLE 500 MG INJ 100 ML IV SCH ×3 (05:04→19:50)
[2016-10-13 05:21] LABS: AUTOMATED NEUTROPHIL # 26.4 TH/MM3 (1.8-7.7); BASOPHIL # 0.1 TH/MM3 (0-0.2); BASOPHIL % 0.2 % (0.0-2.0); EOSINOPHIL % 0.1 % (0.0-4.0); HEMATOCRIT 31.3 % (35.0-46.0); LYMPH % 2.6 % (9.0-44.0); LYMPHOCYTE # 0.7 TH/MM3 (1.0-4.8); MEAN CELL VOLUME 81.2 FL (80.0-100.0); MEAN CORPUSCULAR HGB CONC 32.1 % (32.0-36.0); MONO % 4.8 % (0.0-8.0); NEUT % 92.3 % (16.0-70.0); PLATELET COUNT 461 TH/MM3 (150-450); RED BLOOD COUNT 3.85 MIL/MM3 (4.00-5.30); RED CELL DISTRIBUTION WIDTH 16.2 % (11.6-17.2); WHITE BLOOD COUNT 28.6 TH/MM3 (4.0-11.0)
[2016-10-13] MEDS: CHLORHEXIDINE GLUCONATE 2 % 1 PACK (2 CLOTHS)(taper/protocol) TOPICAL SCH (05:21)
[2016-10-13 05:33] LABS: POTASSIUM 4.3 MEQ/L (3.5-5.1)
[2016-10-13 05:36] LABS: BICARBONATE 23.1 MEQ/L (21.0-32.0)
[2016-10-13 05:37] LABS: MAGNESIUM 2.2 MG/DL (1.5-2.5)
[2016-10-13 05:38] LABS: HEMO FLAGS AUTO DIFF
[2016-10-13 05:58] LABS: BANDS 9 % (0-6); POLYS (SEG NEUTROPHILS) 89 % (16-70); WBC DIFF SAMPLE 100
[2016-10-13 05:59] LABS: PLATELET ESTIMATE SMEAR HIGH (NORMAL); PLATELET MORPHOLOGY NORMAL (NORMAL); SCAN/DIFF FINAL DIFF MANUAL
[2016-10-13] MEDS: INSULIN ASPART SUPPLEMENTAL SCALE SQ SCH ×4 (06:20→21:00)
[2016-10-13] MEDS: RESP: ALBUTEROL 2.5 MG/3 ML NEB (SCH) INH ×3 (08:15→15:26)
[2016-10-13] MEDS: DOCUSATE SODIUM 100 MG CAP PO SCH ×2 (09:00→19:51)
[2016-10-13] MEDS: BUDESONIDE-FORMOTEROL 160/4.5 MCG INHALER INH SCH ×2 (09:35→19:52)
[2016-10-13] MEDS: INSULIN DETEMIR 100 UNITS/ML VIAL SQ SCH ×2 (09:35→19:52)
[2016-10-13] MEDS: METOPROLOL TARTRATE 25 MG TAB PO SCH ×2 (09:36→19:51)
[2016-10-13] MEDS: EZETIMIBE 10 MG TAB PO SCH (09:36)
[2016-10-13] MEDS: CITALOPRAM HYDROBROMIDE 20 MG TAB PO SCH (09:36)
[2016-10-13] MEDS: HYDROXYCHLOROQUINE SULFATE 200 MG TAB PO SCH (09:36)
[2016-10-13] MEDS: THIAMINE HCL 100 MG TAB PO SCH (09:36)
[2016-10-13] MEDS: LISINOPRIL 20 MG TAB PO SCH ×2 (09:37→19:52)
[2016-10-13] MEDS: ASPIRIN 81 MG CHEW TAB CHEW SCH (09:37)
[2016-10-13] MEDS: SODIUM CHLORIDE 0.9% FLUSH 10 ML FLUSH IV FLUSH SCH ×2 (09:38→22:39)
[2016-10-13] MEDS: ALPRAZolam 0.25 MG TAB PO PRN ×2 (09:45→19:51)
[2016-10-13 10:47] LABS: LACTIC ACID GHOST NOT REPORTABLE
[2016-10-13] MEDS: predniSONE 20 MG TAB PO SCH (11:21)
[2016-10-13] MEDS ORDERED: RESP: ALBUTEROL 2.5 MG/3 ML NEB (PRN) INH (15:45)
--- NOTE | 2016-10-13 16:20 | HHI.PR ---
Subjective Remarks Patient seen and examined today with Dr. Davis. Patient was initially having bowel movement, however patient was having difficulty. Patient states that she no longer experiencing any nausea or vomiting. Abdominal pain has been improving Objective Vitals Vital Signs Date Time Temp Pulse Resp B/P Pulse Ox O2 Delivery O2 Flow Rate FiO2 10/13/16 16:00 98.1 82 50 172/83 10/13/16 15:00 68 21 155/72 10/13/16 14:00 68 25 152/65 10/13/16 14:00 80 10/13/16 13:00 76 42 144/62 10/13/16 12:48 77 10/13/16 12:00 97.9 66 28 142/74 96 10/13/16 11:00 78 26 166/70 96 10/13/16 10:30 80 10/13/16 10:00 74 27 165/65 95 10/13/16 09:00 74 25 127/81 98 10/13/16 08:30 72 10/13/16 08:19 97 Nasal Cannula 2.00 10/13/16 08:00 98.2 76 26 166/74 96 10/13/16 07:00 68 25 145/60 97 10/13/16 06:00 66 10/13/16 06:00 74 30 141/55 96 10/13/16 05:00 68 27 140/58 97 10/13/16 04:00 66 10/13/16 04:00 74 30 141/55 96 10/13/16 04:00 62 27 124/57 97 10/13/16 04:00 97.7 10/13/16 03:00 66 19 134/42 96 10/13/16 02:00 62 27 124/57 97 10/13/16 02:00 66 10/13/16 01:00 62 15 129/52 95 10/13/16 00:25 64 14 130/55 95 10/13/16 00:00 97.7 66 14 119/50 95 10/13/16 00:00 66 10/13/16 00:00 66 14 119/50 95 10/12/16 23:06 68 30 129/47 10/12/16 22:27 74 29 135/46 95 10/12/16 22:00 92 10/12/16 21:26 86 40 147/58 97 10/12/16 20:21 98.1 84 30 160/71 97 10/12/16 20:00 82 10/12/16 19:42 98 Nasal Cannula 2.00 10/12/16 18:58 72 26 165/85 97 10/12/16 18:31 74 10/12/16 17:58 76 34 137/60 98 10/12/16 17:00 82 22 152/71 96 I/O 10/12/16 10/12/16 10/12/16 10/13/16 10/13/16 10/13/16 07:00 15:00 23:00 07:00 15:00 23:00 Intake Total 3150 ml 1052 ml 150 ml 733 ml 736 ml Output Total 4450 ml 850 ml 825 ml 450 ml 950 ml Balance -1300 ml 202 ml -675 ml 283 ml -214 ml Intake Oral 1350 ml 650 ml 150 ml 50 ml 250 ml IV Total 1800 ml 402 ml 683 ml 486 ml Output Urine Total 4450 ml 850 ml 825 ml 450 ml 950 ml # Bowel Movements 2 2 2 4 Result Diagram: 10/13/1642610/13/16426 Objective Remarks GENERAL: Well-developed, well-nourished, in no acute distress. alert and orientated HEENT: Head is normocephalic without any lesions or masses noted. Facial features are symmetric. Eyes: Extraocular muscles are intact. Conjunctivae were clear. NECK: Supple without any masses. Trachea midline no deviation. No JVD, CARDIAC: Regular rhythm, regular rate. S1/S2 are heard. No murmurs gallops or rubs. LUNGS: Clear to auscultation bilaterally. No wheeze, rhonchi or rales. No use of accessory muscles on inspiration or expiration. ABDOMEN: Soft, nontender. Nondistended. Bowel sounds heard in all 4 quadrants. No organomegaly or masses. Negative rebound, negative guarding EXTREMITIES: No edema, pulses are equal bilaterally. No cyanosis or clubbing NEUROLOGY: Mood and affect appear appropriate. Cranial nerves II through XII grossly intact. Moving all extremities, speech is clear Urinary Catheter: Yes Assessment to: Remove Vascular Central Line Catheter: No A/P Assessment and Plan Lactic acidosis, unknown etiology at this time, Could be from multiple etiologies to include infection, mesenteric ischemia. 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 Rockwell, who is known to the patient for further evaluation. Still awaiting recommendations Leukocytosis: Continues to worsen Could be secondary to multiple etiologies to include ischemia, infection, steroid use Continue monitor CBC Metabolic acidosis, non-anion gap with respiratory compensation No infectious sources noted this time. Renal functions appear to be improving Likely secondary to lactic acidosis. Chest pain with associated shortness of breath, nausea, improved Chest pain has been going on for probably 3 days, cardiac enzymes are unremarkable for any acute event, BMP is negative to indicate any congestive heart failure D-dimer performed which is 0.56, unable do CTA of the chest due to iodine allergy VQ scan was done which did not indicate any pulmonary emboli Echocardiogram indicates systolic function was normal. Ejection fraction 55 60 percent. Patient with grade 2 diastolic dysfunction thus cautious IV hydration. Shortness of breath, dyspnea, hypoxia possible chronic obstructive pulmonary disease exacerbation Continue O2 supplementation maintain O2 sats greater 92% Duo nebs Incentive spirometry Levaquin 750 mg IV daily Discontinue Solu-Medrol 40 every 6 hours, start prednisone 40 mg daily Acute renal failure superimposed on chronic kidney disease stage 3: Resolved Conservative IV fluids and continue monitor renal function Avoid nephrotoxins Diabetes, insulin-dependent, monitor closely since patient on steroids Accu-Cheks and increase to medium dose sliding scale insulin Increased to Levemir 32 units twice daily Chronic medical illnesses to include hyperlipidemia, anxiety, depression, hypothyroidism, rheumatoid arthritis, hypertension Continue home medications DVT prevention Subcutaneous heparin Written by Manjit Hernandez PA-C, acting as scribe for Dr. Davis on 10/13/16 at 830. The documentation accurately reflects the work and decisions performed face-to- face by Dr. Davis on 10/13/16 at 0830. This note was transcribed by scribe Manjit Hernandez PA-C. I, Dr. Anthony Davis personally performed the history, physical exam, and medical decision making; and confirmed the accuracy of the information in the transcribed note. Authenticated by Dr. Anthony Davis on 10/13/16 at 20:14. Manjit Hernandez Oct 13, 2016 16:19 Anthony Davis MD Oct 13, 2016 20:14
[2016-10-13] MEDS: ACETAMINOPHEN/HYDROcodone 325 MG/5 MG TAB PO PRN (19:51)
--- NOTE | 2016-10-13 21:59 | HHI.PR ---
Subjective Remarks C/R Surg events reviewed constipation, chronic problem lactic acidosis, unclear etiology no BRB, diarrhea ? ventral hernia Objective - Vital Signs Date Time Temp Pulse Resp B/P Pulse Ox O2 Delivery O2 Flow Rate FiO2 10/13/16 20:00 96 Nasal Cannula 2.00 10/13/16 16:26 70 10/13/16 16:00 98.1 50 172/83 Result Diagram: 10/13/1642610/13/16426 Objective Remarks PE alert Abd - soft, rounded, +ventral hernia, non-tender min tympany A/P Assessment and Plan Imp: ventral hernia - no signs of obstruction laxative resp rx PT cont w/u for lactate Joseph Rockwell MD Oct 13, 2016 21:59
[2016-10-13] MEDS ORDERED: ZOLPIDEM TARTRATE 5 MG TAB PO PRN (22:45)
[2016-10-14] VITALS (26 sets, daily range): BP systolic 149–198; BP diastolic 52–84; PULSE 58–79; RESP 15–37; TEMP 97.8–98.4; O2SAT 94–97
[2016-10-14] MEDS: ACETAMINOPHEN/HYDROcodone 325 MG/5 MG TAB PO PRN (02:19)
[2016-10-14] MEDS: ENALAPRILAT 1.25 MG/ML VIAL IV PUSH PRN (02:20)
[2016-10-14] MEDS: CHLORHEXIDINE GLUCONATE 2 % 1 PACK (2 CLOTHS)(taper/protocol) TOPICAL SCH (04:00)
[2016-10-14] MEDS: metroNIDAZOLE 500 MG INJ 100 ML IV SCH ×2 (04:31→11:36)
[2016-10-14] MEDS: LEVOTHYROXINE SODIUM 125 MCG TAB PO SCH (06:42)
[2016-10-14] MEDS: INSULIN ASPART SUPPLEMENTAL SCALE SQ SCH ×2 (06:43→11:36)
[2016-10-14 07:00] LABS: POTASSIUM 3.8 MEQ/L (3.5-5.1)
[2016-10-14] MEDS ORDERED: INSULIN DETEMIR 100 UNITS/ML VIAL SQ SCH ×2 (08:00→21:00)
[2016-10-14 08:02] LABS: CALCIUM-PROTEIN CORRECTED 7.7 MG/DL (8.5-10.1)
[2016-10-14] MEDS: BUDESONIDE-FORMOTEROL 160/4.5 MCG INHALER INH SCH (08:39)
[2016-10-14] MEDS: ASPIRIN 81 MG CHEW TAB CHEW SCH (08:39)
[2016-10-14] MEDS: SODIUM CHLORIDE 0.9% FLUSH 10 ML FLUSH IV FLUSH SCH (08:39)
[2016-10-14] MEDS: HYDROXYCHLOROQUINE SULFATE 200 MG TAB PO SCH (08:40)
[2016-10-14] MEDS: THIAMINE HCL 100 MG TAB PO SCH (08:40)
[2016-10-14] MEDS: LISINOPRIL 20 MG TAB PO SCH (08:40)
[2016-10-14] MEDS: METOPROLOL TARTRATE 25 MG TAB PO SCH (08:40)
[2016-10-14] MEDS: CITALOPRAM HYDROBROMIDE 20 MG TAB PO SCH (08:40)
[2016-10-14] MEDS: EZETIMIBE 10 MG TAB PO SCH (08:40)
[2016-10-14] MEDS: predniSONE 20 MG TAB PO SCH (08:40)
[2016-10-14] MEDS: DOCUSATE SODIUM 100 MG CAP PO SCH (08:41)
[2016-10-14] MEDS: SODIUM CHLOR 0.9% 1000 ML INJ 1,000 ML IV SCH (08:41)
--- NOTE | 2016-10-14 11:09 | HHI.PR ---
Subjective Remarks Patient seen and examined today with Dr. Davis. Patient indicates that she is doing well. She did get a headache this morning when she woke up which was worsened whenever she stood up to go to the bathroom but when she lay back down and the headache did go away. Clinically the patient is doing quite well. She is on room air without any signs of respiratory distress or hypoxia. She is not experiencing any abdominal pain. Objective Vitals Vital Signs Date Time Temp Pulse Resp B/P Pulse Ox O2 Delivery O2 Flow Rate FiO2 10/14/16 09:00 62 18 149/52 96 10/14/16 08:00 98.2 66 16 168/64 10/14/16 08:00 94 Room Air 10/14/16 08:00 64 10/14/16 07:29 162/52 97 10/14/16 06:00 58 23 156/60 94 10/14/16 05:00 66 18 169/71 96 10/14/16 04:00 98.2 60 22 152/62 95 10/14/16 03:45 62 37 96 10/14/16 03:30 60 26 96 10/14/16 03:15 68 30 97 10/14/16 03:00 64 28 157/81 96 10/14/16 03:00 64 28 157/81 96 10/14/16 02:45 64 26 94 10/14/16 02:30 60 30 97 10/14/16 02:15 66 31 96 10/14/16 02:07 70 26 166/61 97 10/14/16 02:05 74 30 198/84 96 10/14/16 02:00 64 15 184/82 96 10/14/16 02:00 64 15 184/82 96 10/14/16 02:00 79 10/14/16 01:45 64 33 96 10/14/16 01:30 58 28 95 10/14/16 01:15 68 26 10/14/16 01:00 62 17 156/55 96 10/14/16 01:00 62 17 156/55 96 10/14/16 00:45 66 17 95 10/14/16 00:30 62 19 96 10/14/16 00:15 62 31 95 10/14/16 00:00 62 28 155/61 95 10/14/16 00:00 79 10/14/16 00:00 98.4 62 28 155/61 95 10/13/16 23:00 64 33 159/69 95 10/13/16 22:00 76 46 190/108 10/13/16 22:00 79 10/13/16 21:00 70 21 149/61 94 10/13/16 20:00 97.9 74 24 158/58 95 10/13/16 20:00 79 10/13/16 20:00 96 Nasal Cannula 2.00 10/13/16 19:00 76 32 155/57 10/13/16 16:26 70 10/13/16 16:00 98.1 82 50 172/83 10/13/16 15:00 68 21 155/72 10/13/16 14:00 68 25 152/65 10/13/16 14:00 80 10/13/16 13:00 76 42 144/62 10/13/16 12:48 77 10/13/16 12:00 97.9 66 28 142/74 96 I/O 10/13/16 10/13/16 10/13/16 10/14/16 10/14/16 10/14/16 07:00 15:00 23:00 07:00 15:00 23:00 Intake Total 733 ml 736 ml 792 ml 1453 ml Output Total 450 ml 950 ml 2 ml Balance 283 ml -214 ml 790 ml 1453 ml Intake Oral 50 ml 250 ml 300 ml 300 ml IV Total 683 ml 486 ml 492 ml 1153 ml Output Urine Total 450 ml 950 ml Stool Total 2 ml # Voids 2 4 # Bowel Movements 2 4 4 Result Diagram: 10/13/16 0427 10/14/16 0640 Objective Remarks GENERAL: Well-developed, well-nourished, in no acute distress. alert and orientated HEENT: Head is normocephalic without any lesions or masses noted. Facial features are symmetric. Eyes: Extraocular muscles are intact. Conjunctivae were clear. NECK: Supple without any masses. Trachea midline no deviation. No JVD, CARDIAC: Regular rhythm, regular rate. S1/S2 are heard. No murmurs gallops or rubs. LUNGS: Clear to auscultation bilaterally. No wheeze, rhonchi or rales. No use of accessory muscles on inspiration or expiration. ABDOMEN: Soft, nontender. Nondistended. Bowel sounds heard in all 4 quadrants. No organomegaly or masses. Negative rebound, negative guarding EXTREMITIES: No edema, pulses are equal bilaterally. No cyanosis or clubbing NEUROLOGY: Mood and affect appear appropriate. Cranial nerves II through XII grossly intact. Moving all extremities, speech is clear Urinary Catheter: No Vascular Central Line Catheter: No A/P Assessment and Plan Lactic acidosis, unknown etiology at this time, improving Could be from multiple etiologies to include infection, mesenteric ischemia. 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 Rockwell, who is known to the patient for further evaluation. He indicates that the patient got ventral hernia with no signs of obstruction. Continue laxatives. Leukocytosis: Worsened Could be secondary to multiple etiologies to include ischemia, infection, steroid use Continue monitor CBC Metabolic acidosis, non-anion gap with respiratory compensation, improved No infectious sources noted this time. Renal functions appear to be improving Likely secondary to lactic acidosis. Chest pain with associated shortness of breath, nausea, improved Chest pain has been going on for probably 3 days, cardiac enzymes are unremarkable for any acute event, BMP is negative to indicate any congestive heart failure D-dimer performed which is 0.56, unable do CTA of the chest due to iodine allergy VQ scan was done which did not indicate any pulmonary emboli Echocardiogram indicates systolic function was normal. Ejection fraction 55 60 percent. Patient with grade 2 diastolic dysfunction. Shortness of breath, dyspnea, hypoxia possible chronic obstructive pulmonary disease exacerbation Continue O2 supplementation maintain O2 sats greater 92% Duo nebs Incentive spirometry Levaquin 750 mg IV daily Discontinue Solu-Medrol 40 every 6 hours, continue prednisone 40 mg daily Acute renal failure superimposed on chronic kidney disease stage 3: Resolved Conservative IV fluids and continue monitor renal function Avoid nephrotoxins Diabetes, insulin-dependent, monitor closely since patient on steroids Accu-Cheks and increase to medium dose sliding scale insulin Levemir 32 units twice daily Chronic medical illnesses to include hyperlipidemia, anxiety, depression, hypothyroidism, rheumatoid arthritis, hypertension Continue home medications DVT prevention Subcutaneous heparin Written by Manjit Hernandez, acting as scribe for Dr. Davis on 10/14/16 at 11: 07. This note was transcribed by scribe Manjit Hernandez. I, Dr. Anthony Davis personally performed the history, physical exam, and medical decision making; and confirmed the accuracy of the information in the transcribed note. Authenticated by Dr. Anthony Davis on 10/14/16 at 13:55. Manjit Hernandez Oct 14, 2016 11:09 Anthony Davis MD Oct 14, 2016 13:56
--- NOTE | 2016-10-14 11:13 | HHI.DCPOC ---
Discharge Care Plan Diagnosis: (1) Chest pain (2) Shortness of breath (3) Lactic acidosis (4) Leukocytosis Goals to Promote Your Health * To prevent worsening of your condition and complications * To maintain your health at the optimal level Directions to Meet Your Goals Take your medications as prescribed Follow your dietary instruction Follow activity as directed Keep your appointments as scheduled Take your immunizations and boosters as scheduled If your symptoms worsen call your PCP, if no PCP go to Urgent Care Center or Emergency Room Smoking is Dangerous to Your Health. Avoid second hand smoke Call the 24-hour hour crisis hotline for domestic abuse at Manjit Hernandez Oct 14, 2016 11:13
[2016-10-14] MEDS ORDERED: LEVA750T PO (11:16)
[2016-10-14] MEDS ORDERED: MEDR4PAK PO (11:16)
--- NOTE | 2016-10-14 13:18 | HHI.DS ---
Discharge Summary Admission Date Oct 11, 2016 at 14:51 Discharge Date: Oct 14, 2016 Admitting Diagnosis PNA (L Lung Base) (1) Shortness of breath ICD Code: R06.02 Diagnosis: Principal (2) Chest pain ICD Code: R07.9 Diagnosis: Principal (3) Lactic acidosis ICD Code: E87.2 Diagnosis: Principal (4) Nausea & vomiting ICD Code: R11.2 Diagnosis: Principal Procedures Echocardiogram indicates left ventricular hypertrophy, systolic function was normal, ejection fraction 5560 percent. Grade 2 diastolic dysfunction. Mild calcified mitral valve annulus. Brief History - From Admission 75-year-old female with rather significant chronic medical illnesses of hypertension, diabetes, coronary artery disease, chronic obstructive pulmonary disease, arthritis, bowel obstructions requiring multiple resections, multiple abdominal hernias, fibromyalgia who presented to hospital because of acute onset of shortness of breath and chest pain. Patient states that she has a plethora of multiple symptoms to include general malaise, sinus congestion, nausea, fatigue, body aches, shortness of breath, chest pain that is been going on for approximately 3 days. Her symptoms progressed got worse and that 2:00 this morning and she had to get up and use her breathing machine without any significant improvement. The patient came to emergency department this morning for further evaluation. Patient was found to have multiple abnormalities to include hypoxia requiring oxygen, lactic acidosis and is recommended that the patient be admitted for further evaluation management. Tried to do further studies, however patient is refusing to have blood gas performed and possibly will refuse to have any further laboratory studies performed. Upon evaluating the patient she does look mildly uncomfortable lying in the bed. CBC/BMP: 10/13/16 0427 10/14/16 0640 Significant Findings Laboratory Tests Test 10/11/16 10/11/16 10/11/16 10/11/16 13:15 15:20 16:10 18:35 Hemoglobin 11.2 GM/DL (11.6-15.3) Hematocrit 33.6 % (35.0-46.0) Mean Corpuscular Hemoglobin 26.8 PG (27.0-34.0) Platelet Count 470 TH/MM3 (150-450) Neutrophils (%) (Auto) 78.1 % (16.0-70.0) D-Dimer Quantitative (PE/DVT) 0.56 MG/L FEU (0.00-0.50) Creatinine 1.10 MG/DL (0.50-1.00) Estimat Glomerular Filtration 48 ML/MIN (>89) Rate Random Glucose 220 MG/DL (74-106) Lactic Acid Level 4.1 mmol/L 5.2 mmol/L (0.4-2.0) (0.4-2.0) Troponin I LESS THAN 0.02 NG/ML (0.02-0.05) Urine Ketones TRACE mg/dL (NEG) Blood Gas HCO3 16 mmol/L (22-26) Blood Gas Base Excess -7.8 mmol/L (-2-2) Arterial Blood pH 7.43 (7.380-7.420) Arterial Blood Partial 24 mmHG (38-42) Pressure CO2 Arterial Blood Partial 127 mmHG Pressure O2 (61-120) Blood Gas Hemoglobin 11.0 G/DL (12.0-16.0) Test 10/11/16 10/11/16 10/12/16 10/12/16 20:24 23:00 02:20 06:35 White Blood Count 11.8 TH/MM3 14.4 TH/MM3 (4.0-11.0) (4.0-11.0) Hemoglobin 11.5 GM/DL 10.6 GM/DL (11.6-15.3) (11.6-15.3) Mean Corpuscular Hemoglobin 26.6 PG 26.7 PG (27.0-34.0) (27.0-34.0) Lactic Acid Level 8.4 mmol/L 6.5 mmol/L 3.6 mmol/L 2.7 mmol/L (0.4-2.0) (0.4-2.0) (0.4-2.0) (0.4-2.0) Red Blood Count 3.99 MIL/MM3 (4.00-5.30) Hematocrit 32.2 % (35.0-46.0) Neutrophils (%) (Auto) 93.7 % (16.0-70.0) Lymphocytes (%) (Auto) 5.1 % (9.0-44.0) Neutrophils # (Auto) 13.6 TH/MM3 (1.8-7.7) Lymphocytes # (Auto) 0.7 TH/MM3 (1.0-4.8) Chloride Level 108 MEQ/L (98-107) Carbon Dioxide Level 19.7 MEQ/L (21.0-32.0) Estimat Glomerular Filtration 62 ML/MIN (>89) Rate Random Glucose 198 MG/DL (74-106) Calcium Level 7.8 MG/DL (8.5-10.1) Alkaline Phosphatase 145 U/L (45-117) Albumin 3.2 GM/DL (3.4-5.0) Test 10/12/16 10/12/16 10/12/16 10/13/16 09:05 16:30 19:23 04:27 Lactic Acid Level 5.3 mmol/L 4.4 mmol/L 4.1 mmol/L (0.4-2.0) (0.4-2.0) (0.4-2.0) White Blood Count 28.6 TH/MM3 (4.0-11.0) Red Blood Count 3.85 MIL/MM3 (4.00-5.30) Hemoglobin 10.0 GM/DL (11.6-15.3) Hematocrit 31.3 % (35.0-46.0) Mean Corpuscular Hemoglobin 26.0 PG (27.0-34.0) Platelet Count 461 TH/MM3 (150-450) Neutrophils (%) (Auto) 92.3 % (16.0-70.0) Lymphocytes (%) (Auto) 2.6 % (9.0-44.0) Neutrophils # (Auto) 26.4 TH/MM3 (1.8-7.7) Lymphocytes # (Auto) 0.7 TH/MM3 (1.0-4.8) Monocytes # (Auto) 1.4 TH/MM3 (0-0.9) Neutrophils % (Manual) 89 % (16-70) Band Neutrophils % 9 % (0-6) Lymphocytes % 1 % (9-44) Neutrophils # (Manual) 28.0 TH/MM3 (1.8-7.7) Platelet Estimate HIGH (NORMAL) Blood Urea Nitrogen 19 MG/DL (7-18) Estimat Glomerular Filtration 65 ML/MIN (>89) Rate Random Glucose 227 MG/DL (74-106) Calcium Level 7.9 MG/DL (8.5-10.1) Test 10/13/16 10/13/16 10/13/16 10/13/16 08:40 11:49 16:47 22:24 Lactic Acid Level 4.8 mmol/L 5.0 mmol/L 4.1 mmol/L 3.8 mmol/L (0.4-2.0) (0.4-2.0) (0.4-2.0) (0.4-2.0) Test 10/14/16 06:40 Blood Urea Nitrogen 20 MG/DL (7-18) Estimat Glomerular Filtration 73 ML/MIN (>89) Rate Random Glucose 212 MG/DL (74-106) Lactic Acid Level 2.4 mmol/L (0.4-2.0) Calcium Level 7.2 MG/DL (8.5-10.1) Protein Corrected Calcium 7.7 MG/DL (8.5-10.1) Total Protein 6.2 GM/DL (6.4-8.2) Imaging Last Impressions Abdomen Magnetic Resonance Angio 10/12/16 0000 Signed Impressions: Service Date/Time: Wednesday, October 12, 2016 15:10 - CONCLUSION: 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 Widely patent SMA and patent JUNE. Dre Laguerre MD Chest X-Ray 10/11/16 1308 Signed Impressions: Service Date/Time: Tuesday, October 11, 2016 13:19 - CONCLUSION: No acute disease. Hector An MD Lung Scan- Nuclear Medicine 10/11/16 0000 Signed Impressions: Service Date/Time: Tuesday, October 11, 2016 18:49 - CONCLUSION: Low probability for pulmonary embolism. Stephen Kincaid MD Abdomen/Pelvis CT 10/11/16 0000 Signed Impressions: Service Date/Time: Wednesday, October 12, 2016 01:06 - CONCLUSION: 1. Hepatic steatosis. 2. Small hiatal hernia. 3. Right adrenal adenoma. Gutierrez Walsh MD ADDENDUM: There is a moderate amount of stool within the colon but no evidence of bowel distraction. There is a small ventral hernia containing small bowel inferiorly without evidence for extraction. This is seen best on axial image 67 and coronal image 22. Bowel loops are unremarkable in appearance without evidence for wall thickening, inflammatory stranding or pneumatosis. Hector An MD PE at Discharge GENERAL: Well-developed, well-nourished, in no acute distress. alert and orientated HEENT: Head is normocephalic without any lesions or masses noted. Facial features are symmetric. Eyes: Extraocular muscles are intact. Conjunctivae were clear. NECK: Supple without any masses. Trachea midline no deviation. No JVD, CARDIAC: Regular rhythm, regular rate. S1/S2 are heard. No murmurs gallops or rubs. LUNGS: Clear to auscultation bilaterally. No wheeze, rhonchi or rales. No use of accessory muscles on inspiration or expiration. ABDOMEN: Soft, nontender. Nondistended. Bowel sounds heard in all 4 quadrants. No organomegaly or masses. Negative rebound, negative guarding EXTREMITIES: No edema, pulses are equal bilaterally. No cyanosis or clubbing NEUROLOGY: Mood and affect appear appropriate. Cranial nerves II through XII grossly intact. Moving all extremities, speech is clear Hospital Course 75-year-old female who originally presented to the hospital with shortness of breath and chest pain. Patient had other symptoms to include malaise, sinus congestion, nausea, fatigue, body aches, shortness of breath had been going on for 3 days prior to her presentation to the hospital. The pain progressively got worse so she came to the ER for evaluation. Patient was found to have multiple medical problems to include hypoxia, lactic acidosis and is recommended that patient be admitted for further evaluation and management. Patient did have underlying COPD and shortness of breath and dyspnea she required O2 supplementation. She started on antibiotics and Solu-Medrol with significant improvement. Patient no longer requiring oxygen. Patient did have chest pain with associated shortness of breath. D-dimer was performed which was mildly elevated. VQ scan was performed which did not indicate any problem emboli. Echocardiogram was performed which showed good ejection fraction, hours mild left ventricular hypertrophy and grade 2 diastolic dysfunction. Patient had mild diuresis with improvement. Patient did have abdominal hernia which intermittently was painful on palpation and was reduced easily. She did have lactic acidosis on presentation which waxed and waned. Patient had MRA done of the abdomen which did indicate narrowing of the proximal celiac artery. Patient's colorectal specialist Dr. Rockwell was consulted who evaluated the patient who indicates that there is no signs of obstruction to continue laxatives in follow-up outpatient. Patient clinically stable this time. She is very eager to go home. She has not required any oxygen. Denies any further abdominal pain, shortness of breath, chest pain. Physical therapy evaluated patient indicates that she is independent and can return home without any therapy. Will plan discharge home in stable condition. Pt Condition on Discharge: Stable Discharge Disposition: Discharge Home Discharge Time: > 30 minutes Discharge Instructions DIET: Follow Instructions for: Heart Healthy Diet, Diabetic Diet Activities you can perform: Regular-No Restrictions Activities to Avoid: Driving for 24 hrs Follow up Referrals: Colorectal Surgery - 1 Week with Joseph Rockwell MD PCP Follow-up - 1 Week New Medications: Levofloxacin (Levaquin) 750 Mg Tab 750 MG PO DAILY Infection #7 Ref 0 TAB Methylprednisolone Dosepak (Medrol Dosepak) 4 Mg Dspk 4 MG PO DIRECTED Per Pharmacist direction #1 Ref 0 DSPK Continued Medications: Albuterol 8.5 GM Inh (Proair Hfa 8.5 GM Inh) 90 Mcg/Act Aer 1 PUFF INH Q4H 108 mcg/actuation PRN SHORTNESS OF BREATH #1 Ref 0 INHALER Albuterol Neb (Albuterol Neb) 2.5 Mg/3 Ml Neb 2.5 MG NEB QID NEB Breathing Treatment #60 Ref 0 NEBULE Alprazolam (Alprazolam) 0.25 Mg Tab 0.25 MG PO Q12HR PRN ANXIETY Ref 0 TAB Aspirin (Aspirin Children's) 81 Mg Chew 81 MG CHEW DAILY Ref 0 TAB Budesonide-Formoterol Inh (Symbicort Inh) 160-4.5 Mcg/Act Aero 1 PUFF INH Q12HR #1 Ref 0 INHALER Citalopram (Citalopram) 20 Mg Tab 40 MG PO DAILY Control Depression #30 Ref 0 TAB Docusate Sodium (Dok) 100 Mg Cap 100 MG PO BID constipation #60 CAP Ezetimibe (Zetia) 10 Mg Tab 10 MG PO DAILY #30 Ref 0 TAB Felodipine ER (Felodipine ER) 10 mg Tree 10 MG PO DAILY Blood Pressure Management #30 Ref 0 TAB Hydralazine (Hydralazine) 10 Mg Tab 10 MG PO TID Take with a meal Blood Pressure Management Ref 0 TAB Hydrocodone-Acetaminophen (Hydrocodone-Acetaminophen) 5-325 mg Tab 1 TAB PO Q6H PRN PAIN Ref 0 TAB Hydroxychloroquine (Hydroxychloroquine) 200 Mg Tab 200 MG PO DAILY Takw with food #30 Ref 0 TAB Insulin Glargine Inj (Lantus Solostar Pen Inj) 300 Unit/3 Ml Pen 50 UNITS SQ BID Blood Sugar Management Ref 0 PEN Levothyroxine (Levothyroxine) 112 Mcg Tab 125 MCG PO DAILY #30 Ref 0 TAB Metoprolol Tartrate (Metoprolol Tartrate) 25 Mg Tab 25 MG PO BID htn #60 TAB Quinapril (Quinapril) 40 Mg Tab 40 MG PO BID #30 Ref 0 TAB ([Astelin Nasal]) Additional Information Written by Manjit Hernandez, acting as scribe for Dr. Davis on 10/14/16 at 13: 12. This note was transcribed by scribe Manjit Hernandez,. I, Dr. Anthony Davis personally performed the history, physical exam, and medical decision making; and confirmed the accuracy of the information in the transcribed note. Authenticated by Dr. Anthony Davis on 10/14/16 at 13:58. Manjit Hernandez Oct 14, 2016 13:18 Anthony Davis MD Oct 14, 2016 13:58
[2016-10-14] MEDS ORDERED: LEVOFLOXACIN 750 MG PREMIX INJ 150 ML IV SCH (16:00)
== END 2016-10-14 14:15 | disposition home or self-care (01) | DRG 191 ==
LOC: PHED 12:37 → PHEDA 14:51 → PH3A 16:13 → PHICU 19:25
PROVIDERS: ADMIT Internal Medicine; ATTEND Internal Medicine
DX: J44.1 Chronic obstructive pulmonary disease with (acute) exacerbation (principal); N17.9 Acute kidney failure, unspecified; E87.2 Acidosis; E11.22 Type 2 diabetes mellitus with diabetic chronic kidney disease; G62.9 Polyneuropathy, unspecified; I50.9 Heart failure, unspecified; N18.3 Chronic kidney disease, stage 3 (moderate); F32.9 Major depressive disorder, single episode, unspecified; F41.9 Anxiety disorder, unspecified; M19.90 Unspecified osteoarthritis, unspecified site; J45.909 Unspecified asthma, uncomplicated; E78.00 Pure hypercholesterolemia, unspecified; K21.9 Gastro-esophageal reflux disease without esophagitis; K44.9 Diaphragmatic hernia without obstruction or gangrene; E03.9 Hypothyroidism, unspecified; K43.9 Ventral hernia without obstruction or gangrene; I12.9 Hypertensive chronic kidney disease with stage 1 through stage 4 chronic kidney disease, or unspecified chronic kidney disease; R09.02 Hypoxemia; E78.5 Hyperlipidemia, unspecified; M06.9 Rheumatoid arthritis, unspecified; M79.7 Fibromyalgia; I25.10 Atherosclerotic heart disease of native coronary artery without angina pectoris; Z95.5 Presence of coronary angioplasty implant and graft; Z96.653 Presence of artificial knee joint, bilateral; Z91.041 Radiographic dye allergy status; Z88.2 Allergy status to sulfonamides; Z88.8 Allergy status to other drugs, medicaments and biological substances; Z88.1 Allergy status to other antibiotic agents; Z88.5 Allergy status to narcotic agent; Z88.0 Allergy status to penicillin; Z91.013 Allergy to seafood; Z79.4 Long term (current) use of insulin; Z91.012 Allergy to eggs; Z91.19 Patient's noncompliance with other medical treatment and regimen; K59.00 Constipation, unspecified
CPT/HCPCS: 36600; 71010; 74176; 76937; 78582; 80048; 80053; 81001; 82550; 82552; 82805; 82948; 83605; 83735; 83880; 84080; 84155; 84443; 84484; 85007; 85025; 85027; 85379; 85610; 85730; 87040; 87070; 87205; 87449; 87641; 87804; 93005; 93306; 94150; 94640; 94664; 96365; 96367; 96375; A9540; A9567; A9579; C8900; J0696; J1644; J1815; J1956; J2060; J2920; J2930; J3411; J7030; J7512; J7613; Q9963

== ENCOUNTER 2016-10-27 06:59 | Inpatient (IN) | payer MEDICARE, BC ==
[2016-10-27] VITALS (9 sets, daily range): BP systolic 121–187; BP diastolic 50–92; PULSE 71–80; RESP 16–20; TEMP 98.9–101.3; O2SAT 94–99
[~2016-10-27] VITALS: Ht 149.9 cm; Wt 90.6 kg
[~2016-10-27 06:59] MED LIST changes: +ALBUAER3 INH; -ASPI325T PO; +ASPI81CH7 CHEW; +ASTELIN NASAL; +HYDR200T3 PO; +LEVA750T PO; +MEDR4PAK PO
[2016-10-27] MEDS ORDERED: SODIUM CHLOR 0.9% 1000 ML INJ 1,000 ML IV ONE ×3 (07:20)
--- NOTE | 2016-10-27 07:27 | PD ---
HPI Chief Complaint: Cold / Flu Symptoms Time Seen by Provider: 07:07 Travel History International Travel<30 days: No Contact w/Intl Traveler<30days: No Traveled to known affect area: No History of Present Illness HPI The patient is a 75-year-old female who presents to the emergency department via EMS for fever and body aches. The patient states she was recently hospitalized for similar symptoms with abdominal pain, underwent evaluation by Dr. Rockwell and also had a CT/MRA of the abdomen/pelvis. The patient was noted to have a lactic acidosis at that time which did improve over the hospital course. The patient states she saw her primary physician, Dr. Marcum, and her colorectal surgeon, Dr. Rockwell, last week. The patient states she developed diffuse body aches last night was unable to get out of bed this morning. The patient does have a cane, walker, and scooter at home, but normally ambulates without any assist. The patient states she was unable to get out of bed this morning secondary to pain in her joints including knees, hips, and shoulders. She also complains of mild neck discomfort, nausea, and vomiting. Patient states she had a fever at home, 102.2, according to EMS. The patient's symptoms are moderate, there are no alleviating or exacerbating factors. PFSH Past Medical History Hx Anticoagulant Therapy: Yes (ASA 325MG DAILY) Arthritis: Yes Asthma: Yes Anxiety: Yes Depression: Yes Heart Rhythm Problems: Yes (Irregular) Cancer: No Cardiac Catheterization: Yes Cardiovascular Problems: Yes (Stent) High Cholesterol: Yes Chest Pain: No Congestive Heart Failure: No COPD: No Cerebrovascular Accident: No Diabetes: Yes Diminished Hearing: No Diverticulitis: Yes Endocrine: Yes Gastrointestinal Disorders: Yes (Diverticulatis, Abdominal Surgery) GERD: Yes Genitourinary: No Headaches: No Hepatitis: No Hiatal Hernia: Yes Hypertension: Yes Immune Disorder: No Implanted Vascular Access Dvce: Yes Kidney Stones: No Musculoskeletal: Yes (Arthritis, Neck) Neurologic: Yes (Neuropathy ) Psychiatric: Yes Reproductive: No Immunizations Current: No Migraines: No Renal Failure: No Seizures: No Sleep Apnea: No Thyroid Disease: Yes (Hypothyrodism) Ulcer: Yes Influenza Vaccination: No ?: Not Menopausal: Yes : 4 Para: 4 Miscarriage: 0 : 0 Past Surgical History Abdominal Surgery: Yes (COLOSTOMY, REVERSAL OF COLOSTOMY) AICD: No Body Medical Devices: Cardiac stent, Bilateral knees Cardiac Surgery: Yes (CORONARY STENTS) Coronary Stent: Yes Ear Surgery: No Endocrine Surgery: No Eye Surgery: No Genitourinary Surgery: No Gynecologic Surgery: Yes (HYSTERECTOMY) Hysterectomy: Yes Joint Replacement: Yes (BETZAIDA. KNEES) Neurologic Surgery: No Oral Surgery: No Pacemaker: No Thoracic Surgery: No Other Surgery: Yes (Abdominal, Bilateral knee, Stent) Social History Alcohol Use: No Tobacco Use: No Substance Use: No Allergies-Medications (Allergen,Severity, Reaction): Coded Allergies: Egg Allergy (Verified Allergy, Severe, DYSPNEA, SWELLING, 10/11/16) WHEN MIXED WITH CULTURES FOR IMMUNIZATIONS Erythromycin (Verified Allergy, Severe, HIVES, TROUBLE BREATHING, 10/11/16) Iodine (Verified Allergy, Severe, SWELLING, 10/11/16) Molds and Smuts (Verified Allergy, Severe, ITCHING, 10/11/16) DYSPNEA Penicillin (Verified Allergy, Severe, STOPS BREATHING, 10/11/16) Seafood (Verified Allergy, Severe, HIVES, 10/11/16) Sulfa (Verified Allergy, Severe, STOPS BREATHING, "SULFA POISONING", ) Metformin (Verified Adverse Reaction, Severe, DIARRHEA, GASTRIC CRAMPING, 10/11/16) Morphine (Verified Adverse Reaction, Unknown, STATES MAKES HER "TOO SLEEPY " - REFUSES, 10/11/16) Uncoded Allergies: MERCURY (Allergy, Severe, 09/10/16) Reported Meds & Prescriptions Reported Meds & Active Scripts Active Medrol Dosepak (Methylprednisolone) 4 Mg Dspk 4 Mg PO DIRECTED Per Pharmacist direction Levaquin (Levofloxacin) 750 Mg Tab 750 Mg PO DAILY Metoprolol Tartrate 25 Mg Tab 25 Mg PO BID Dok (Docusate Sodium) 100 Mg Cap 100 Mg PO BID Reported Proair Hfa 8.5 GM Inh (Albuterol Sulfate) 90 Mcg/Act Aer 1 Puff INH Q4H PRN 108 mcg/actuation Hydroxychloroquine (Hydroxychloroquine Sulfate) 200 Mg Tab 200 Mg PO DAILY Takw with food [Astelin Nasal] Aspirin Children's (Aspirin) 81 Mg Chew 81 Mg CHEW DAILY Symbicort Inh (Budesonide/Formoterol Fumarate) 160-4.5 Mcg/Act Aero 1 Puff INH Q12HR Hydrocodone-Acetaminophen 5-325 mg Tab 1 Tab PO Q6H PRN Hydralazine (Hydralazine HCl) 10 Mg Tab 10 Mg PO TID Take with a meal Albuterol Neb (Albuterol Sulfate) 2.5 Mg/3 Ml Neb 2.5 Mg NEB QID NEB Alprazolam 0.25 Mg Tab 0.25 Mg PO Q12HR PRN Quinapril (Quinapril HCl) 40 Mg Tab 40 Mg PO BID Citalopram (Citalopram Hydrobromide) 20 Mg Tab 40 Mg PO DAILY Lantus Solostar Pen Inj (Insulin Glargine) 300 Unit/3 Ml Pen 50 Units SQ BID Zetia (Ezetimibe) 10 Mg Tab 10 Mg PO DAILY Levothyroxine (Levothyroxine Sodium) 112 Mcg Tab 125 Mcg PO DAILY Felodipine ER (Felodipine) 10 mg Tree 10 Mg PO DAILY Review of Systems Except as stated in HPI: all other systems reviewed are Neg General / Constitutional: Positive: Fever HENT: Positive: Neck Pain, No: Headaches Cardiovascular: No: Chest Pain or Discomfort Respiratory: No: Cough, Shortness of Breath Gastrointestinal: Positive: Nausea, Vomiting, Abdominal Pain Genitourinary: No: Dysuria Musculoskeletal: Positive: Myalgias, Arthralgias, Weakness, Pain Neurologic: No: Focal Abnormalities Physical Exam Narrative GENERAL: Awake, alert, 75-year-old female appears her stated age and appears in mild discomfort. SKIN: Focused skin assessment warm/dry. HEAD: Atraumatic. Normocephalic. EYES: Pupils equal and round. No scleral icterus. No injection or drainage. ENT: No nasal bleeding or discharge. Mucous membranes pink and moist. NECK: Trachea midline. No JVD. Patient is able flex and extend her neck, no obvious meningeal sign. CARDIOVASCULAR: Regular rate and rhythm. No murmur appreciated. RESPIRATORY: No accessory muscle use. Clear to auscultation. Breath sounds equal bilaterally. GASTROINTESTINAL: Abdomen soft, obese, mild epigastric tenderness. Well-healed surgical scar. MUSCULOSKELETAL: Well-healed surgical scars of the knees bilateral. Patient is able flex her knees to 30 and extend her shoulders, however, has pain with movement. NEUROLOGICAL: Awake and alert. No obvious cranial nerve deficits. Motor grossly within normal limits. Normal speech. Back: No CVA tenderness. PSYCHIATRIC: Appropriate mood and affect; insight and judgment normal. Data Data Last Documented VS Vital Signs Date Time Temp Pulse Resp B/P Pulse Ox O2 Delivery O2 Flow Rate FiO2 10/27/16 09:17 73 16 169/72 98 Nasal Cannula 2 10/27/16 07:07 101.3 Orders Electrocardiogram (10/27/16 07:20) Complete Blood Count With Diff (10/27/16 07:20) Comprehensive Metabolic Panel (10/27/16 07:20) Prothrombin Time / Inr (Pt) (10/27/16 07:20) Act Partial Throm Time (Ptt) (10/27/16 07:20) Lactic Acid Sepsis Protocol (10/27/16 07:20) Lipase (10/27/16 07:20) Ckmb (Isoenzyme) Profile (10/27/16 07:20) Troponin I (10/27/16 07:20) Urinalysis - C+S If Indicated (10/27/16 07:20) Influenzae A/B Antigen (10/27/16 07:20) Blood Culture (10/27/16 07:20) Chest, Single Ap (10/27/16 07:20) Blood Gas Venous (Vbg) (10/27/16 07:20) Blood Glucose (10/27/16 07:20) Ecg Monitoring (10/27/16 07:20) Iv Access Insert/Monitor (10/27/16 07:20) Cath For Specimen (10/27/16 07:20) Oximetry (10/27/16 07:20) Oxygen Administration (10/27/16 07:20) Acetaminophen (Tylenol) (10/27/16 07:30) Hydromorphone Pf Inj (Dilaudid Pf Inj) (10/27/16 07:30) Ondansetron Inj (Zofran Inj) (10/27/16 07:30) Ct Abd/Pel W/O Iv Contrast (10/27/16 07:20) Sodium Chlor 0.9% 1000 Ml Inj (Ns 1000 M (10/27/16 07:20) Sodium Chlor 0.9% 1000 Ml Inj (Ns 1000 M (10/27/16 07:20) Sodium Chlor 0.9% 1000 Ml Inj (Ns 1000 M (10/27/16 07:20) Westergren Sedimentation Rate (10/27/16 07:20) Lumbar Puncture (10/27/16 09:38) Bacterial Antigen Csf (10/27/16 09:38) Csf Hsv I/Ii Dna,Pcr (10/27/16 09:38) Csf Cell Count + Differential (10/27/16 09:38) Glucose, Csf (10/27/16 09:38) Total Protein, Csf (10/27/16 09:38) Csf Culture And Gram Stain (10/27/16 09:38) Vancomycin Inj (Vancomycin Inj) (10/27/16 09:38) Aztreonam Inj (Azactam Inj) (10/27/16 09:38) Metronidazole 500 Mg Inj (Flagyl 500 Mg (10/27/16 09:38) Labs Laboratory Tests Test 10/27/16 10/27/16 10/27/16 07:40 07:42 08:32 White Blood Count 17.3 TH/MM3 Red Blood Count 4.28 MIL/MM3 Hemoglobin 11.0 GM/DL Hematocrit 34.9 % Mean Corpuscular Volume 81.7 FL Mean Corpuscular Hemoglobin 25.6 PG Mean Corpuscular Hemoglobin 31.4 % Concent Red Cell Distribution Width 16.5 % Platelet Count 318 TH/MM3 Mean Platelet Volume 7.8 FL Neutrophils (%) (Auto) 88.3 % Lymphocytes (%) (Auto) 2.2 % Monocytes (%) (Auto) 7.1 % Eosinophils (%) (Auto) 1.7 % Basophils (%) (Auto) 0.7 % Neutrophils # (Auto) 15.3 TH/MM3 Lymphocytes # (Auto) 0.4 TH/MM3 Monocytes # (Auto) 1.2 TH/MM3 Eosinophils # (Auto) 0.3 TH/MM3 Basophils # (Auto) 0.1 TH/MM3 CBC Comment DIFF FINAL Differential Comment Erythrocyte Sedimentation Rate 25 mm/hr Prothrombin Time 9.8 SEC Prothromb Time International 0.9 RATIO Ratio Activated Partial 25.4 SEC Thromboplast Time Sodium Level 136 MEQ/L Potassium Level 4.1 MEQ/L Chloride Level 100 MEQ/L Carbon Dioxide Level 27.1 MEQ/L Anion Gap 9 MEQ/L Blood Urea Nitrogen 16 MG/DL Creatinine 0.93 MG/DL Estimat Glomerular Filtration 59 ML/MIN Rate Random Glucose 167 MG/DL Calcium Level 8.5 MG/DL Total Bilirubin 0.3 MG/DL Aspartate Amino Transf 22 U/L (AST/SGOT) Alanine Aminotransferase 30 U/L (ALT/SGPT) Alkaline Phosphatase 95 U/L Total Creatine Kinase 84 U/L Troponin I LESS THAN 0.02 NG/ML Total Protein 7.3 GM/DL Albumin 3.3 GM/DL Lipase 71 U/L Blood Gas Puncture Site IV Blood Gas Patient Temperature 98.6 Venous Blood pH 7.42 Venous Blood Partial Pressure 42 mmHg CO2 Venous Blood Partial Pressure 26 mmHg O2 Venous Blood HCO3 27 mmol/L Venous Blood Oxygen Saturation 41 % Venous Blood Oxygen Content 6.1 Vol % Venous Blood Base Excess 2.6 mmol/L Oxygen Delivery Device NASAL CANNULA Blood Gas Liter Flow 2 L/M Urine Color YELLOW Urine Turbidity CLEAR Urine pH 6.5 Urine Specific [place] 1.014 Urine Protein TRACE mg/dL Urine Glucose (UA) NEG mg/dL Urine Ketones NEG mg/dL Urine Occult Blood NEG Urine Nitrite NEG Urine Bilirubin NEG Urine Urobilinogen LESS THAN 2.0 MG/DL Urine Leukocyte Esterase NEG Urine RBC LESS THAN 1 /hpf Urine WBC 1 /hpf Urine Squamous Epithelial <1 /hpf Cells Urine Mucus FEW /lpf Microscopic Urinalysis Comment CATH-CULT NOT IND MDM Medical Decision Making Medical Screen Exam Complete: Yes Emergency Medical Condition: Yes Medical Record Reviewed: Yes Interpretation(s) VBG revealed pH is 7.423, PCO2 41.6, bicarbonate 26.7 EKG reveals normal sinus rhythm with a rate of 74. No ischemic changes or ectopy noted. Differential Diagnosis Differential diagnosis includes sepsis, meningitis, pneumonia, small bowel obstruction, polymyalgia rheumatica, myositis, pyelonephritis, influenza. Narrative Course IV was established, labs are drawn and sent, and the patient was placed on cardiac telemetry monitoring and continuous pulse oximetry monitoring. EKG was ordered and interpreted. Chest x-ray was obtained. UA was sent to lab. The patient was administered Dilaudid 0.5 mg intravenously, Zofran 4 mg intravenously, and IV fluids. Blood culture and lactic acid were sent to lab. CT of the abdomen and pelvis was obtained. VBG was unremarkable, no significant acidosis noted. Chest x-rays unremarkable. UA is negative. White count is elevated at 17.8, patient is febrile with no obvious source. The patient does have a history of meningitis, states she had more severe headache at that time. She does complain of mild posterior neck pain that radiates down the back into the shoulders, but has no meningeal signs. This may be viral meningitis, doubt bacterial meningitis. After discussion with the patient was agreed we would perform lumbar puncture through invasive radiology. Patient will be covered for sepsis with no source with antibiotics until LP results and blood culture results are obtained. The on-call medical service was paged for admission. Sepsis Criteria SIRS Criteria (2 or more): Temp > 100.9 or < 96.8, WBC > 16893, < 4000 or > 10 % bands Criteria Outcome: Meets SIRS criteria Physician Communication Physician Communication The on-call medical service was paged for admission. Diagnosis Primary Impression: Sepsis Qualified Code: A41.9 - Sepsis, due to unspecified organism Additional Impressions: Febrile illness, acute Leukocytosis Qualified Code: D72.829 - Leukocytosis, unspecified type Admitting Information Admitting Physician Requests: Admit Condition: Stable oGlden Conklin MD Oct 27, 2016 07:26
[2016-10-27] MEDS ORDERED: ACETAMINOPHEN 325 MG TAB PO ONE (07:30)
[2016-10-27] MEDS ORDERED: ONDANSETRON HCL 4 MG/2 ML VIAL IV ONE (07:30)
[2016-10-27] MEDS ORDERED: HYDROmorphone HCL PF 1 MG/ML VIAL IV ONE (07:30)
[2016-10-27 07:48] LABS: BLOOD GAS VENOUS BASE EXCESS 2.6 mmol/L (-2-2); BLOOD GAS VENOUS HCO3 27 mmol/L (22-26); BLOOD GAS VENOUS O2 CONTENT 6.1 Vol % (9.0-17.0); BLOOD GAS VENOUS O2 HGB SAT 41 % (70-76); BLOOD GAS VENOUS PCO2 42 mmHg (44-48); BLOOD GAS VENOUS PO2 26 mmHg (35-40); BLOOD GAS VENOUS pH 7.42 (7.360-7.400); CRITICAL VALUE YES; DRAW SITE IV; LITER FLOW 2 L/M; OXYGEN DEVICE NASAL CANNULA; STAT YES; TEMP CORR TO 98.6
--- NOTE | 2016-10-27 08:16 | RADRPT ---
EXAM DATE/TIME: 10/27/2016 07:34 [facility] COMPARISON: CHEST SINGLE AP, October 11, 2016, 13:19. INDICATIONS : Shortness of breath. MEDICAL HISTORY : Diabetes mellitus type II. A-fib, asthma SURGICAL HISTORY : Coronary artery stent. ENCOUNTER: Initial ACUITY: 1 day PAIN SCORE: 0/10 LOCATION: Bilateral chest FINDINGS: Portable AP view of the chest demonstrates a normal-sized cardiac silhouette. No effusion, consolidat ion, or pneumothorax is visualized. The bones and soft tissues demonstrate no acute abnormality. EKG lines overlie the patient. CONCLUSION: No acute cardiopulmonary abnormality is identified. Dre Gandhi MD on October 27, 2016 at 8:13 Board Certified Radiologist. This report was verified electronically.
[2016-10-27 08:27] LABS: AUTOMATED NEUTROPHIL # 15.3 TH/MM3 (1.8-7.7); BASOPHIL # 0.1 TH/MM3 (0-0.2); BASOPHIL % 0.7 % (0.0-2.0); EOSINOPHIL # 0.3 TH/MM3 (0-0.4); EOSINOPHIL % 1.7 % (0.0-4.0); HEMATOCRIT 34.9 % (35.0-46.0); HEMO FLAGS DIFF FINAL; LYMPH % 2.2 % (9.0-44.0); LYMPHOCYTE # 0.4 TH/MM3 (1.0-4.8); MEAN CELL VOLUME 81.7 FL (80.0-100.0); MEAN CORPUSCULAR HEMOGLOBIN 25.6 PG (27.0-34.0); MEAN CORPUSCULAR HGB CONC 31.4 % (32.0-36.0); MONO % 7.1 % (0.0-8.0); NEUT % 88.3 % (16.0-70.0); PLATELET COUNT 318 TH/MM3 (150-450); RED BLOOD COUNT 4.28 MIL/MM3 (4.00-5.30); RED CELL DISTRIBUTION WIDTH 16.5 % (11.6-17.2); WHITE BLOOD COUNT 17.3 TH/MM3 (4.0-11.0)
[2016-10-27 08:34] LABS: APTT (PATIENT) 25.4 SEC (24.3-30.1); INTERNATIONAL NORMALIZED RATIO 0.9 RATIO; PROTHROMBIN TIME - PATIENT 9.8 SEC (9.8-11.6)
[2016-10-27 08:54] LABS: ALT (GPT) 30 U/L (10-53); ANION GAP 9 MEQ/L (5-15); AST (GOT) 22 U/L (15-37); BICARBONATE 27.1 MEQ/L (21.0-32.0); BLOOD UREA NITROGEN 16 MG/DL (7-18); CHLORIDE 100 MEQ/L (98-107); GLOMERULAR FILTRATION RATE 59 ML/MIN (>89); POTASSIUM 4.1 MEQ/L (3.5-5.1); SODIUM (NA) 136 MEQ/L (136-145)
[2016-10-27 08:58] LABS: ALKALINE PHOSPHATASE 95 U/L (45-117); TOTAL BILIRUBIN ADULT 0.3 MG/DL (0.2-1.0)
[2016-10-27 09:12] LABS: CREATINE KINASE 84 U/L (26-192)
[2016-10-27 09:17] LABS: BLOOD, URINE NEG (NEG); GLUCOSE,URINE NEG (NEG); KETONE, URINE NEG (NEG); MUCUS URINE FEW /lpf (OCC); NITRITE,URINE NEG (NEG); PH, URINE 6.5 (5.0-8.5); SQUAMOUS EPITHELIAL CELL URINE <1 /hpf (0-5); URINE COLOR YELLOW (YELLW/STRAW)
[2016-10-27 09:18] LABS: COMMENT (UR) CATH-CULT NOT IND; CULTURE IF INDICATED CATH CULTURE NOT IND
--- NOTE | 2016-10-27 09:36 | RADRPT ---
EXAM DATE/TIME: 10/27/2016 08:15 [facility] COMPARISON: CT ABDOMEN & PELVIS W/O CONTRAST, September 03, 2013, 4:34. CT ABDOMEN & PELVIS W/O CONTRAST, October 12, 2016, 1:06. INDICATIONS : Abdominal pain with fever and nausea and vomiting ORAL CONTRAST: No oral contrast ingested. RADIATION DOSE: 15.71 CTDIvol (mGy) MEDICAL HISTORY : Cardiovascular disease. Diverticulitis. Hernia, hiatal.Hypothyroid. hypertenstion. SURGICAL HISTORY : Coronary artery stent. Colostomy.Hysterectomy. ENCOUNTER: Initial ACUITY: 1 day PAIN SCALE: 9/10 LOCATION: Diffuse abdomen TECHNIQUE: Volumetric scanning of the abdomen and pelvis was performed. Using automated exposure control and ad justment of the mA and/or kV according to patient size, radiation dose was kept as low as reasonably achievable to obtain optimal diagnostic quality images. FINDINGS: LOWER LUNGS: The visualized lower lungs are clear. LIVER: The liver is enlarged measuring 22.4 cm in length and demonstrates severe diffuse low-density. There is no dilation of the biliary tree. No calcified gallstones. SPLEEN: Normal size without lesion. PANCREAS: Within normal limits. KIDNEYS: Normal in size and shape. There is no mass, stone, or hydronephrosis. ADRENAL GLANDS: There is a 15 mm right adrenal gland mass that is stable compared to the 2014 study. Hounsfield measu rements are 8. VASCULAR: There is no aortic aneurysm. There is severe atherosclerotic disease. BOWEL/MESENTERY: The stomach, small bowel, and colon demonstrate no acute abnormality. There is no free intraperitone al air or fluid. The prior small bowel surgery has been performed in the left mid abdomen and near th e rectosigmoid junction. Moderate size hiatal hernia remains present. ABDOMINAL WALL: There are postsurgical changes on the anterior abdominal wall and a portion of the anterior small bow el wall extends into a midline hernia. There are no signs of bowel wall thickening or inflammation. RETROPERITONEUM: There is no lymphadenopathy. BLADDER: No wall thickening or mass. REPRODUCTIVE: The uterus is absent. There is a right ovarian cystic lesion measuring 3.1 cm. INGUINAL: There is no lymphadenopathy or hernia. MUSCULOSKELETAL: There are degenerative changes of the lumbar spine with stable hemangiomas. CONCLUSION: 1. No acute finding is identified within the abdomen or pelvis to explain the clinical symptoms. Over all, there has been no significant change since the prior study. 2. There is a right ovarian cystic lesion measuring 3.1 cm. It appears simple on this noncontrast exa mination. This is an abnormal finding for a postmenopausal patient but this lesion has remained prese nt and not significantly changed in size since August 2013. 3. Stable small anterior abdominal wall hernia containing a portion of a small bowel segment. There a re no signs of inflammation or bowel wall thickening. 4. Stable nonacute findings include hepatomegaly with steatosis, moderate size hiatal hernia, 15 mm r ight adrenal gland adenoma, and severe atherosclerotic disease. Dre Gandhi MD on October 27, 2016 at 9:16 Board Certified Radiologist. This report was verified electronically.
[2016-10-27] MEDS ORDERED: VANCOMYCIN INJ 1,000 MG in SODIUM CHLOR 0.9% 250 ML INJ 250 ML IV STA (09:38)
[2016-10-27] MEDS ORDERED: metroNIDAZOLE 500 MG INJ 100 ML IV STA (09:38)
[2016-10-27] MEDS ORDERED: AZTREONAM INJ 2,000 MG in SODIUM CHLORIDE 0.9% INJ 100 ML IV STA (09:38)
[2016-10-27] MEDS ORDERED: BISACODYL 10 MG SUPP RECTAL PRN (10:45)
[2016-10-27] MEDS ORDERED: ACETAMINOPHEN 325 MG TAB PO PRN (10:45)
[2016-10-27] MEDS: ENOXAPARIN SODIUM 40 MG/0.4 ML SYRINGE SQ SCH (11:00)
[2016-10-27] MEDS ORDERED: Vancomycin Consult Pharmacy 1 EA OTHER SCH (11:15)
--- NOTE | 2016-10-27 11:19 | HHI.HP ---
[facility] Service [facility] Primary Care Physician Jeimy Fontenot MD Admission Diagnosis sepsis, leukocytosis, febrile illness Diagnoses: Chief Complaint: Body aches and fever Travel History International Travel<30 Days: No Contact w/Intl Traveler <30 Da: No Traveled to Known Affected Are: No History of Present Illness This is a 75-year-old female with past medical history of type 2 diabetes, coronary artery disease, rheumatoid arthritis, and asthma who presented with fever, body aches, and shortness of breathing. Patient was admitted recently at [facility] a couple week ago with similar symptoms. She stated that when she was discharged from the hospital she was doing very well then woke up this morning with severe body aches and fever. Patient stated last night she did have shortness of breathing and a cough that lasted for couple hours so she took extra doses of her Symbicort and stated that resolved. She denied any headache, visual changes, able to move her neck without difficulty. She does admit having chronic neck pain. She feels nauseated and denies any emesis. Patient stated for the past 6 months she had similar symptoms about 5 times and nobody seems to be able to get her better. Review of Systems Constitutional: COMPLAINS OF: Fever, Chills, DENIES: Diaphoretic episodes, Fatigue, Weight gain, Weight loss, Dizziness, Change in appetite, Night Sweats Endocrine: DENIES: Abnorml menstrual pattern, Heat/cold intolerance, Polydipsia , Polyuria, Polyphagia Eyes: DENIES: Blurred vision, Diplopia, Eye inflammation, Eye pain, Vision loss , Photosensitivity, Double Vision Ears, nose, mouth, throat: DENIES: Tinnitus, Hearing loss, Vertigo, Nasal discharge, Oral lesions, Throat pain, Hoarseness, Ear Pain, Running Nose, Epistaxis, Sinus Pain, Toothache, Odynophagia Respiratory: DENIES: Apneas, Cough, Snoring, Wheezing, Hemoptysis, Sputum production, Shortness of breath Cardiovascular: DENIES: Chest pain, Palpitations, Syncope, Dyspnea on Exertion , PND, Lower Extremity Edema, Orthopnea, Claudication Gastrointestinal: DENIES: Abdominal pain, Black stools, Bloody stools, Constipation, Diarrhea, Nausea, Vomiting, Difficulty Swallowing, Anorexia Genitourinary: DENIES: Abnormal vaginal bleeding, Dysmenorrhea, Dyspareunia, Sexual dysfunction, Urinary frequency, Urinary incontinence, Urgency, Hematuria , Dysuria, Nocturia, Vaginal discharge Musculoskeletal: COMPLAINS OF: Muscle aches, DENIES: Joint pain, Stiffness, Joint Swelling, Back pain, Neck pain Integumentary: DENIES: Abnormal pigmentation, Pruritus, Rash, Nail changes, Breast masses, Breast skin changes, Nipple discharge Hematologic/lymphatic: DENIES: Bruising, Lymphadenopathy Immunologic/allergic: DENIES: Eczema, Urticaria Neurologic: DENIES: Abnormal gait, Headache, Localized weakness, Paresthesias, Seizures, Speech Problems, Tremor, Poor Balance Psychiatric: DENIES: Anxiety, Confusion, Mood changes, Depression, Hallucinations, Agitation, Suicidal Ideation, Homicidal Ideation, Delusions Past Family Social History Past Medical History Hypertension Diabetes Fibromyalgia Chronic obstructive pulmonary disease Coronary artery disease Hypothyroidism Hyperlipidemia Gastroesophageal reflux Arthritis Lumbar stenosis Rheumatoid arthritis Past Surgical History Bilateral knee replacements Cardiac catheterization with cardiac stenting Hysterectomy Exploratory laparotomies Sigmoid resection and colostomy Reverse of colostomy Ventral hernia repair Exploratory laparotomy lysis of adhesions and bowel resection Reported Medications Reported Meds & Active Scripts Active Medrol Dosepak (Methylprednisolone) 4 Mg Dspk 4 Mg PO DIRECTED Per Pharmacist direction Levaquin (Levofloxacin) 750 Mg Tab 750 Mg PO DAILY Metoprolol Tartrate 25 Mg Tab 25 Mg PO BID Dok (Docusate Sodium) 100 Mg Cap 100 Mg PO BID Reported Proair Hfa 8.5 GM Inh (Albuterol Sulfate) 90 Mcg/Act Aer 1 Puff INH Q4H PRN 108 mcg/actuation Hydroxychloroquine (Hydroxychloroquine Sulfate) 200 Mg Tab 200 Mg PO DAILY Takw with food [Astelin Nasal] Aspirin Children's (Aspirin) 81 Mg Chew 81 Mg CHEW DAILY Symbicort Inh (Budesonide/Formoterol Fumarate) 160-4.5 Mcg/Act Aero 1 Puff INH Q12HR Hydrocodone-Acetaminophen 5-325 mg Tab 1 Tab PO Q6H PRN Hydralazine (Hydralazine HCl) 10 Mg Tab 10 Mg PO TID Take with a meal Albuterol Neb (Albuterol Sulfate) 2.5 Mg/3 Ml Neb 2.5 Mg NEB QID NEB Alprazolam 0.25 Mg Tab 0.25 Mg PO Q12HR PRN Quinapril (Quinapril HCl) 40 Mg Tab 40 Mg PO BID Citalopram (Citalopram Hydrobromide) 20 Mg Tab 40 Mg PO DAILY Lantus Solostar Pen Inj (Insulin Glargine) 300 Unit/3 Ml Pen 50 Units SQ BID Zetia (Ezetimibe) 10 Mg Tab 10 Mg PO DAILY Levothyroxine (Levothyroxine Sodium) 112 Mcg Tab 125 Mcg PO DAILY Felodipine ER (Felodipine) 10 mg Tree 10 Mg PO DAILY Allergies: Coded Allergies: Egg Allergy (Verified Allergy, Severe, DYSPNEA, SWELLING, 10/11/16) WHEN MIXED WITH CULTURES FOR IMMUNIZATIONS Erythromycin (Verified Allergy, Severe, HIVES, TROUBLE BREATHING, 10/11/16) Iodine (Verified Allergy, Severe, SWELLING, 10/11/16) Molds and Smuts (Verified Allergy, Severe, ITCHING, 10/11/16) DYSPNEA Penicillin (Verified Allergy, Severe, STOPS BREATHING, 10/11/16) Seafood (Verified Allergy, Severe, HIVES, 10/11/16) Sulfa (Verified Allergy, Severe, STOPS BREATHING, "SULFA POISONING", ) Metformin (Verified Adverse Reaction, Severe, DIARRHEA, GASTRIC CRAMPING, 10/11/16) Morphine (Verified Adverse Reaction, Unknown, STATES MAKES HER "TOO SLEEPY " - REFUSES, 10/11/16) Uncoded Allergies: MERCURY (Allergy, Severe, 09/10/16) Active Ordered Medications Current Medications Acetaminophen (Tylenol) 650 mg ONCE ONCE PO Last administered on 10/27/16 07: 51; Start 10/27/16 at 07:30; Stop 10/27/16 at 07:31; Status DC Hydromorphone HCl (Dilaudid Pf Inj) 0.5 mg ONCE ONCE IV Last administered on 07:48; Start 10/27/16 at 07:30; Stop 10/27/16 at 07:31; Status DC Ondansetron HCl 4 mg 4 mg ONCE ONCE IV Last administered on 10/27/16 07:49; Start 10/27/16 at 07:30; Stop 10/27/16 at 07:31; Status DC Sodium Chloride 1,000 ml @ 1,000 mls/hr Q1H ONCE IV Last administered on 07:48; Start 10/27/16 at 07:20; Stop 10/27/16 at 08:19; Status DC Sodium Chloride 1,000 ml @ 1,000 mls/hr Q1H ONCE IV Last administered on 09:14; Start 10/27/16 at 07:20; Stop 10/27/16 at 08:19; Status DC Sodium Chloride 1,000 ml @ 1,000 mls/hr Q1H ONCE IV Last administered on 09:15; Start 10/27/16 at 07:20; Stop 10/27/16 at 08:19; Status DC Vancomycin HCl 1000 mg/Sodium Chloride 250 ml @ 250 mls/hr ONCE STAT IV ; Start 10/27/16 at 09:38; Stop 10/27/16 at 10:37; Status DC Aztreonam 2000 mg/ Sodium Chloride 100 ml @ 200 mls/hr ONCE STAT IV ; Start at 09:38; Stop 10/27/16 at 11:15; Status DC Metronidazole 100 ml @ 100 mls/hr ONCE STAT IV Last administered on 10:58; Start 10/27/16 at 09:38; Stop 10/27/16 at 11:12; Status DC Sodium Chloride (NS 1000 ml Inj) 1,000 ml @ 125 mls/hr Q8H IV ; Start 10/27/16 at 10:31 Sodium Chloride (NS Flush) 2 ml UNSCH PRN IV FLUSH FLUSH AFTER USING IV ACCESS ; Start 10/27/16 at 10:45 Sodium Chloride (NS Flush) 2 ml BID IV FLUSH ; Start 10/27/16 at 21:00 Acetaminophen (Tylenol) 650 mg Q4H PRN PO TEMP > 100.4; Start 10/27/16 at 10:45 Bisacodyl (Dulcolax Supp) 10 mg DAILY PRN RECTAL CONSTIPATION; Start 10/27/16 at 10:45 Enoxaparin Sodium 40 mg 40 mg Q24H SQ ; Start 10/27/16 at 11:00 Levofloxacin/ Dextrose 150 ml @ 100 mls/hr Q24H IV ; Start 10/27/16 at 11:15; Status UNV Pharmacy Profile Note (Vancomycin Consult Pharmacy) 0 ml @ 0 mls/hr UNSCH OTHER ; Start 10/27/16 at 11:15; Status UNV Family History Father had diabetes mellitus. Mother had multiple strokes. Social History Patient lives at home with her . Denies any tobacco, illicit drug use or alcohol use. Physical Exam Vital Signs Vital Signs Date Time Temp Pulse Resp B/P Pulse Ox O2 Delivery O2 Flow Rate FiO2 10/27/16 09:17 73 16 169/72 98 Nasal Cannula 2 10/27/16 08:41 71 16 169/72 98 Nasal Cannula 2 10/27/16 08:41 94 Nasal Cannula 2 10/27/16 07:12 20 97 Nasal Cannula 2 10/27/16 07:07 101.3 80 16 187/87 94 Physical Exam GENERAL: This is a well-nourished, well-developed patient, in no apparent distress. SKIN: No rashes, ecchymoses or lesions. Cool and dry. HEAD: Atraumatic. Normocephalic. No temporal or scalp tenderness. EYES: Pupils equal round and reactive. Extraocular motions intact. No scleral icterus. No injection or drainage. ENT: Nose without bleeding, purulent drainage or septal hematoma. Throat without erythema, tonsillar hypertrophy or exudate. Uvula midline. Airway patent. NECK: Trachea midline. No JVD or lymphadenopathy. Supple, nontender, no meningeal signs. Full range of motion of neck. CARDIOVASCULAR: Regular rate and rhythm without murmurs, gallops, or rubs. Positive tenderness to palpation the cervical spine but per patient that is chronic. RESPIRATORY: Clear to auscultation. Breath sounds equal bilaterally. No wheezes , rales, or rhonchi. GASTROINTESTINAL: Abdomen soft, non-tender, nondistended. No hepato-splenomegaly , or palpable masses. No guarding. MUSCULOSKELETAL: Extremities without clubbing, cyanosis, or edema. No joint tenderness, effusion, or edema noted. No calf tenderness. Negative Homans sign bilaterally. NEUROLOGICAL: Awake and alert. Cranial nerves II through XII intact. Motor and sensory grossly within normal limits. Five out of 5 muscle strength in all muscle groups. Normal speech. Laboratory Laboratory Tests Test 10/27/16 10/27/16 10/27/16 10/27/16 07:40 07:42 08:32 09:10 White Blood Count 17.3 Red Blood Count 4.28 Hemoglobin 11.0 Hematocrit 34.9 Mean Corpuscular Volume 81.7 Mean Corpuscular Hemoglobin 25.6 Mean Corpuscular Hemoglobin 31.4 Concent Red Cell Distribution Width 16.5 Platelet Count 318 Mean Platelet Volume 7.8 Neutrophils (%) (Auto) 88.3 Lymphocytes (%) (Auto) 2.2 Monocytes (%) (Auto) 7.1 Eosinophils (%) (Auto) 1.7 Basophils (%) (Auto) 0.7 Neutrophils # (Auto) 15.3 Lymphocytes # (Auto) 0.4 Monocytes # (Auto) 1.2 Eosinophils # (Auto) 0.3 Basophils # (Auto) 0.1 CBC Comment DIFF FINAL Differential Comment Erythrocyte Sedimentation Rate 25 Prothrombin Time 9.8 Prothromb Time International 0.9 Ratio Activated Partial 25.4 Thromboplast Time Sodium Level 136 Potassium Level 4.1 Chloride Level 100 Carbon Dioxide Level 27.1 Anion Gap 9 Blood Urea Nitrogen 16 Creatinine 0.93 Estimat Glomerular Filtration 59 Rate Random Glucose 167 Calcium Level 8.5 Total Bilirubin 0.3 Aspartate Amino Transf 22 (AST/SGOT) Alanine Aminotransferase 30 (ALT/SGPT) Alkaline Phosphatase 95 Total Creatine Kinase 84 Troponin I LESS THAN 0.02 Total Protein 7.3 Albumin 3.3 Lipase 71 Blood Gas Puncture Site IV Blood Gas Patient Temperature 98.6 Venous Blood pH 7.42 Venous Blood Partial Pressure 42 CO2 Venous Blood Partial Pressure 26 O2 Venous Blood HCO3 27 Venous Blood Oxygen Saturation 41 Venous Blood Oxygen Content 6.1 Venous Blood Base Excess 2.6 Oxygen Delivery Device NASAL CANNULA Blood Gas Liter Flow 2 Urine Color YELLOW Urine Turbidity CLEAR Urine pH 6.5 Urine Specific [place] 1.014 Urine Protein TRACE Urine Glucose (UA) NEG Urine Ketones NEG Urine Occult Blood NEG Urine Nitrite NEG Urine Bilirubin NEG Urine Urobilinogen LESS THAN 2.0 Urine Leukocyte Esterase NEG Urine RBC LESS THAN 1 Urine WBC 1 Urine Squamous Epithelial <1 Cells Urine Mucus FEW Microscopic Urinalysis Comment CATH-CULT NOT IND Lactic Acid Level 3.2 Date/Time Procedure Status Source Growth 10/27/16 08:28 Influenza Types A,B Antigen (KATHY) - Final Complete Nasal Aspirate NEGATIVE FOR FLU A AND B ANTIGEN.... 10/27/16 07:55 Aerobic Blood Culture Received Blood Peripheral Pending 10/27/16 07:55 Anaerobic Blood Culture Received Blood Peripheral Pending Result Diagram: 10/27/1640 10/27/16739 Imaging Last Impressions Chest X-Ray 10/27/16719 Signed Impressions: Service Date/Time: October 07:34 - CONCLUSION: No acute cardiopulmonary abnormality is identified. Dre Gandhi MD Abdomen/Pelvis CT 10/27/16719 Signed Impressions: Service Date/Time: October 08:15 - CONCLUSION: 1. No acute finding is identified within the abdomen or pelvis to explain the clinical symptoms. Overall, there has been no significant change since the prior study. 2. There is a right ovarian cystic lesion measuring 3.1 cm. It appears simple on this noncontrast examination. This is an abnormal finding for a postmenopausal patient but this lesion has remained present and not significantly changed in size since August 2013. 3. Stable small anterior abdominal wall hernia containing a portion of a small bowel segment. There are no signs of inflammation or bowel wall thickening. 4. Stable nonacute findings include hepatomegaly with steatosis, moderate size hiatal hernia, 15 mm right adrenal gland adenoma, and severe atherosclerotic disease. Dre Gandhi MD Assessment and Plan Assessment and Plan 75-year-old female with multiple medical conditions and multiple hospitalization when the past year presented with fever, myalgias, shortness of breathing Fever/myalgia -Chest x-ray is negative. CT scan the abdomen pelvis stable. UA was negative. Flu is negative. Sedimentation rate 24. Lactic acid 3.2 in which her last admission it was 2.4. only symptoms of myalgia and shortness of breathing that resolved patient has no other symptoms. -Unknown source. Patient does have a leukocytosis but she also had a leukocytosis on previous admission in which it did improve today. She was also on steroids. -Will treat empirically with Levaquin and vancomycin pending workup. Cultures already obtained. Consult infectious disease for their input. -Start patient on IV fluids. We'll give Tylenol when necessary for pain. Continue to monitor clinically. SIRS -fever and tachycardia -see treatment as above. Shortness of breathing -Resolved last night. Patient does have history of asthma. -On clinical exam lungs are cleared. Chest x-ray is negative. -Resume home medication. -Albuterol when necessary. Leukocytosis -This was present on last admission. In fact WBC has improved. Patient was on steroids. -Will need to monitor. Will rule out infectious source. -Continue to monitor. Type 2 diabetes insulin-dependent -Patient home regimen Lantus 50 units twice a day and insulin sliding scale. -Will have to dose and start on Levemir twice a day with insulin sliding scale and adjust accordingly. -Diabetic diet. Hypertension/hypothyroidism/rheumatoid arthritis/fibromyalgia/asthma -Resume home medication. DVT prophylaxis -Lovenox. Code Status full Discussed Condition With patient Physician Certification 2 Midnight Certification Type: Admission for Inpatient Services Order for Inpatient Services The services are ordered in accordance with Medicare regulations or non- Medicare payer requirements, as applicable. In the case of services not specified as inpatient-only, they are appropriately provided as inpatient services in accordance with the 2-midnight benchmark. Estimated LOS (days): 5 5 days is the estimated time the patient will need to remain in the hospital, assuming treatment plan goals are met and no additional complications. Post-Hospital Plan: Noris Lacy MD Oct 27, 2016 11:19
[2016-10-27] MEDS ORDERED: GLUCAGON 1 MG/ML VIAL OTHER PRN (11:30)
[2016-10-27] MEDS ORDERED: DEXTROSE 50% IN WATER 50 ML VIAL(D50) IV PUSH PRN (11:30)
[2016-10-27 11:32] LABS: LACTIC ACID GHOST NOT REPORTABLE
[2016-10-27] MEDS: LEVOFLOXACIN 750 MG PREMIX INJ 150 ML IV SCH (11:42)
[2016-10-27] MEDS: SODIUM CHLOR 0.9% 1000 ML INJ 1,000 ML IV SCH ×2 (11:44→18:31)
[2016-10-27] MEDS ORDERED: RESP: ALBUTEROL 1.25 MG/3 ML NEB (PRN) NEB (11:45)
[2016-10-27] MEDS: ACETAMINOPHEN/HYDROcodone 325 MG/5 MG TAB PO PRN (12:44)
[2016-10-27] MEDS: LISINOPRIL 20 MG TAB PO SCH ×2 (12:47→21:13)
[2016-10-27] MEDS: hydrALAZINE HCL 10 MG TAB PO SCH ×2 (13:00→18:00)
--- NOTE | 2016-10-27 14:11 | EKG ---
Date Performed: 10/27/2016 Time Performed: 08:38:24 PTAGE: 75 years EKG: Sinus rhythm NORMAL ECG Compared to prior tracing no significant change PREVIOUS TRACING : 10/11/2016 13.40 DOCTOR: Nicolas Reyes Interpretating Date/Time 10/27/2016 14:06:17
--- NOTE | 2016-10-27 14:25 | PD.RAD ---
Post Procedure Progress Note Pre Procedure Diagnosis: (1) Fever (2) Febrile illness, acute (3) Headache Post Procedure Diagnosis: (1) Fever (2) Febrile illness, acute (3) Headache Procedure Date: Oct 27, 2016 Supervising Radiologist: Ernie Auguste Proceduralist/Assist: Hakan Patel, RT(R), RT Ruben(R)() Anesthesia: Local Plan of Activity Patient to Unit: Other (ED) Patient Condition: Good See PACS Report for procedural detail/treatment Spinal Procedure Lumbar Puncture L3-L4 Fluid Removal (CCs): 10 Fluid Description: Clear Puncture Time: 14:02 Ernie Auguste MD Oct 27, 2016 14:25
[2016-10-27] MEDS: VANCOMYCIN INJ 2,000 MG in SODIUM CHLORID 0.9% 500 ML INJ 500 ML IV SCH (15:00)
[2016-10-27] MEDS: HYDROmorphone HCL PF 1 MG/ML VIAL IV PUSH PRN ×2 (15:32→21:20)
[2016-10-27] MEDS: INSULIN ASPART SUPPLEMENTAL SCALE SQ SCH ×2 (16:00→21:15)
[2016-10-27 16:24] LABS: VOLUME TUBE # 1 1.5 ML
[2016-10-27 16:29] LABS: GROSS BLOOD TUBE #1 0 (0); GROSS BLOOD TUBE #2 0 (0); GROSS BLOOD TUBE #3 0 (0); GROSS BLOOD TUBE #4 0 (0); SUPERNATE COLOR TUBE #1 CLEAR (CLEAR); SUPERNATE COLOR TUBE #2 CLEAR (CLEAR); SUPERNATE COLOR TUBE #3 CLEAR (CLEAR); SUPERNATE COLOR TUBE #4 CLEAR (CLEAR); VOLUME TUBE # 2 1.3 ML; VOLUME TUBE # 3 1.5 ML; WBC TUBE #2 4 /MM3 (0-10)
[2016-10-27 16:30] LABS: CSF LYMPHOCYTES 81 %; CSF MONOCYTES 19 %; CSF NEUTROPHILS 0 %
[2016-10-27] MEDS: METOPROLOL TARTRATE 25 MG TAB PO SCH (21:13)
[2016-10-27] MEDS: DOCUSATE SODIUM 100 MG CAP PO SCH (21:13)
[2016-10-27] MEDS: ALPRAZolam 0.25 MG TAB PO PRN (21:13)
[2016-10-27] MEDS: SODIUM CHLORIDE 0.9% FLUSH 10 ML FLUSH IV FLUSH SCH (21:13)
[2016-10-27] MEDS: INSULIN DETEMIR 100 UNITS/ML VIAL SQ SCH (21:14)
[2016-10-27] MEDS: BUDESONIDE-FORMOTEROL 160/4.5 MCG INHALER INH SCH (21:26)
[2016-10-28] VITALS (9 sets, daily range): BP systolic 136–180; BP diastolic 61–75; PULSE 62–71; RESP 16–20; TEMP 97.1–98.8; O2SAT 93–98
[2016-10-28] MEDS: ACETAMINOPHEN/HYDROcodone 325 MG/5 MG TAB PO PRN ×3 (02:39→23:08)
[2016-10-28] MEDS: SODIUM CHLOR 0.9% 1000 ML INJ 1,000 ML IV SCH ×3 (05:05→18:55)
[2016-10-28] MEDS: LEVOTHYROXINE SODIUM 125 MCG TAB PO SCH (05:07)
[2016-10-28] MEDS: HYDROmorphone HCL PF 1 MG/ML VIAL IV PUSH PRN ×4 (05:10→20:57)
[2016-10-28] MEDS: INSULIN ASPART SUPPLEMENTAL SCALE SQ SCH ×4 (05:19→20:52)
[2016-10-28] MEDS: VANCOMYCIN INJ 2,000 MG in SODIUM CHLORID 0.9% 500 ML INJ 500 ML IV SCH (05:20)
--- NOTE | 2016-10-28 07:05 | MB ---
cc: JENSEN RADER MD DATE OF CONSULTATION 10/27/[address] Marquez REASON FOR CONSULTATION This is a 75-year-old female with past medical history of coronary artery disease status post stent placement with multiple admissions. Presented with shortness of breath, myalgias and fevers. Evaluate and treat. HISTORY OF PRESENT ILLNESS This is a 75-year-old white female who has had several recent hospitalizations. The patient was discharged from the hospital October 14 after admission and treatment for pneumonia. A chest x-ray during hospitalization showed no acute infiltrates. She was treated with IV antibiotics as an inpatient and subsequently discharged on Levaquin for seven days. She tells me that she was also on a Medrol Dosepak which she completed about a week ago. The patient states that she was doing fine. She states that two days ago, she was able to get up and do the chores including painting her cabinets and cooking meals and getting out of the house to shop and also playing with the cat without difficulty. Yesterday she felt extremely weak and she was falling asleep on the couch. This happened on several occasions throughout the day and then when she got up this morning, she could hardly move her legs and was having difficulty getting up from bed and she felt achiness of the joints including the neck, shoulders, upper back and her knees. She has bilateral knee replacements and she states that she had difficulty moving the knees. She was evaluated in the emergency department early this morning and she was found to have a temperature of 101.3 degrees and the white blood cell count was elevated at 17.3. She has been started on IV antibiotics with vancomycin and Levaquin. Blood cultures were taken and also influenza testing was done and was negative for influenza A and B antigen. Cerebrospinal fluid was also taking for evaluation and the white count was 4 and 0% neutrophils and 81% lymphocytes. Glucose was 88 and total protein 30.2. CSF culture is pending. A gram stain showed few white cells and no organisms. The patient underwent evaluation with a chest x-ray which showed no acute cardiopulmonary disease. CT scan of the abdomen and pelvis showed a right ovarian cyst lesion measuring approximately 3.1 cm. This was felt to be an abnormal finding for a postmenopausal patient, but the lesion is noted to have remained present and not significantly changed since August 2013. A 15 mm right adrenal gland adenoma was also noted and also severe atherosclerotic disease. The patient has not traveled anywhere outside of [place] lately. She has cats at home and they are in-house pets and no indication of illness in the cats. The patient lives with her . She has had no problems with vaginal bleeding or burning on urination or vaginal discharge. PAST MEDICAL HISTORY 1. Rheumatoid arthritis 2. Fibromyalgia 3. Hypertension 4. Diabetes mellitus 5. Hypothyroidism 6. Hyperlipidemia 7. Gastroesophageal reflux disease 8. Lumbar stenosis 9. Asthma 10. Psoriasis 11. Bilateral knee replacements 12. Cardiac stents 13. Hysterectomy 14. Sigmoid resection and colostomy followed by the reversal of colostomy and subsequent bowel resection 15. Ventral hernia repair ALLERGIES PENICILLIN, ERYTHROMYCIN, METFORMIN, MORPHINE, SULFA, IODINE, MERCURY. THE PATIENT IS ALSO ALLERGIC TO SEAFOOD, MOLDS AND EGGS. FAMILY HISTORY Noncontributory. The patient's mom of stroke. The patient's father of stroke. SOCIAL HISTORY No alcohol use. No tobacco, no illicit drugs. REVIEW OF SYSTEMS CONSTITUTIONAL: Significant for fever. No chills. HEAD, EYES, EARS, NOSE, AND THROAT: No visual blurring or diplopia. No nasal drainage or nasal bleeding. The patient gets occasional sinus stuffiness. No difficulty swallowing or soreness of the throat. RESPIRATORY: No cough or shortness of breath. CARDIOVASCULAR: Denies chest pain or palpitation. GASTROINTESTINAL: Denies nausea, vomiting, abdominal pain or diarrhea. GENITOURINARY: Denies vaginal bleeding, dysuria, urgency or frequency. MUSCULOSKELETAL: The patient complains of muscle and joint aches and joint stiffness including the neck, back, shoulders and knees. INTEGUMENTARY: No skin rash or itching. Denies easy bruising or bleeding. NEUROLOGIC: No problems with coordination or gait problems. PSYCHIATRIC: No confusion or mood changes. PHYSICAL EXAMINATION This is a morbidly obese female who is awake and alert although she looks somewhat fatigued. VITAL SIGNS: Include a temperature 99.5, BP 121/50, respirations 20, heart rate 77. HEENT: Head is atraumatic. Extraocular movements grossly intact, pupils reactive to light. No icterus. No conjunctival erythema. Oropharynx, dry mucosa. No visible lesions. No thrush. NECK: Supple without adenopathy. LUNGS: Diminished clear breath sounds throughout. HEART: Regular S1-S2. No audible murmurs. ABDOMEN: Bowel sounds present, bowel sounds, however, are diminished, soft, nontender. RECTAL: Not performed. EXTREMITIES: No clubbing, cyanosis or edema. SKIN: The skin is dry and warm. NEUROLOGIC: Decreased strength in the lower extremities particularly on the right side which is 3/5 and the left side is 2/5. Otherwise grossly nonfocal. Cranial nerves II-XII intact. PSYCHIATRIC: The patient is calm and cooperative. LABORATORY DATA WBC 17.3, platelets 318, 88% neutrophils. Creatinine 0.93, BUN 16, estimated GFR 59, sodium 136. Liver function tests normal. IMPRESSION 1. Fever and leukocytosis in patient with general with diffuse joint aches and joint stiffness. Blood cultures pending, CSF culture pending. However CSF studies do not reflect meningitis. 2. FUO. Probable noninfectious etiology. Possibly related to the patient's arthritis. She does have rheumatoid arthritis and it is unclear whether this could be a flare-up of her underlying rheumatoid arthritis. 3. Given the elevated temperature and elevated white blood cell count, infection is a possibility and probably a viral infection with a viral syndrome is possible as well. 4. CSF counts appear unremarkable from meningitis standpoint. RECOMMENDATIONS 1. Continue vancomycin. 2. Continue Levaquin for now. 3. Obtain YASMIN. 4. Obtain rheumatoid factor titer. 5. Obtain Lyme antibody serology. 6. Monitor blood cultures. Thank you for this consultation. The patient's progress will be monitored and further recommendations will be given on followup. Jensen Rader MD FD/ANDREW /6:10 PM /6:45 AM SAMINA
[2016-10-28 08:08] LABS: RHEUMATOID FACTOR TRIGGER LESS THAN 10.0 IU/ML (0.0-14.9)
[2016-10-28] MEDS: HYDROXYCHLOROQUINE SULFATE 200 MG TAB PO SCH (09:32)
[2016-10-28] MEDS: LISINOPRIL 20 MG TAB PO SCH ×2 (09:33→20:51)
[2016-10-28] MEDS: hydrALAZINE HCL 10 MG TAB PO SCH ×3 (09:33→17:47)
[2016-10-28] MEDS: ASPIRIN 81 MG CHEW TAB CHEW SCH (09:33)
[2016-10-28] MEDS: EZETIMIBE 10 MG TAB PO SCH (09:33)
[2016-10-28] MEDS: DOCUSATE SODIUM 100 MG CAP PO SCH ×2 (09:33→20:51)
[2016-10-28] MEDS: CITALOPRAM HYDROBROMIDE 20 MG TAB PO SCH (09:33)
[2016-10-28] MEDS: METOPROLOL TARTRATE 25 MG TAB PO SCH ×2 (09:33→20:51)
[2016-10-28] MEDS: INSULIN DETEMIR 100 UNITS/ML VIAL SQ SCH ×2 (09:34→20:52)
[2016-10-28] MEDS: ENOXAPARIN SODIUM 40 MG/0.4 ML SYRINGE SQ SCH (09:35)
[2016-10-28] MEDS: SODIUM CHLORIDE 0.9% FLUSH 10 ML FLUSH IV FLUSH SCH ×2 (09:48→20:54)
[2016-10-28] MEDS: BUDESONIDE-FORMOTEROL 160/4.5 MCG INHALER INH SCH ×2 (09:48→20:51)
--- NOTE | 2016-10-28 10:33 | HHI.PR ---
Subjective Remarks Follow-up for fever myalgia Patient stated that she feels better today. She stated that she can move her fingers. Myalgia is improving. No fevers last night. Objective Vitals Vital Signs Date Time Temp Pulse Resp B/P Pulse Ox O2 Delivery O2 Flow Rate FiO2 10/28/16 07:45 97.9 69 20 144/62 97 10/28/16 04:00 98.2 69 20 163/70 98 10/28/16 00:25 98.3 71 16 136/61 97 10/27/16 19:58 99.5 76 18 147/65 96 10/27/16 15:54 99.5 77 20 121/50 97 10/27/16 13:24 75 18 178/92 98 2 10/27/16 13:14 98.9 77 16 169/78 98 10/27/16 12:48 75 18 178/92 98 Nasal Cannula 2 10/27/16 11:37 79 16 164/72 99 2 Result Diagram: 10/27/1640 10/27/16739 Objective Remarks GENERAL: in NAD CARDIOVASCULAR: Regular rate and rhythm without murmurs, gallops, or rubs. RESPIRATORY: Breath sounds equal bilaterally. No accessory muscle use. GASTROINTESTINAL: Abdomen soft, non-tender, nondistended. MUSCULOSKELETAL: No cyanosis, or edema. Joints are within normal limits. BACK: Nontender without obvious deformity. No CVA tenderness. Medications and IVs Current Medications Acetaminophen (Tylenol) 650 mg ONCE ONCE PO Last administered on 10/27/16 07: 51; Start 10/27/16 at 07:30; Stop 10/27/16 at 07:31; Status DC Hydromorphone HCl (Dilaudid Pf Inj) 0.5 mg ONCE ONCE IV Last administered on 07:48; Start 10/27/16 at 07:30; Stop 10/27/16 at 07:31; Status DC Ondansetron HCl 4 mg 4 mg ONCE ONCE IV Last administered on 10/27/16 07:49; Start 10/27/16 at 07:30; Stop 10/27/16 at 07:31; Status DC Sodium Chloride 1,000 ml @ 1,000 mls/hr Q1H ONCE IV Last administered on 07:48; Start 10/27/16 at 07:20; Stop 10/27/16 at 08:19; Status DC Sodium Chloride 1,000 ml @ 1,000 mls/hr Q1H ONCE IV Last administered on 09:14; Start 10/27/16 at 07:20; Stop 10/27/16 at 08:19; Status DC Sodium Chloride 1,000 ml @ 1,000 mls/hr Q1H ONCE IV Last administered on 09:15; Start 10/27/16 at 07:20; Stop 10/27/16 at 08:19; Status DC Vancomycin HCl 1000 mg/Sodium Chloride 250 ml @ 250 mls/hr ONCE STAT IV ; Start 10/27/16 at 09:38; Stop 10/27/16 at 10:37; Status Cancel Aztreonam 2000 mg/ Sodium Chloride 100 ml @ 200 mls/hr ONCE STAT IV ; Start at 09:38; Stop 10/27/16 at 11:15; Status DC Metronidazole 100 ml @ 100 mls/hr ONCE STAT IV Last administered on 10:58; Start 10/27/16 at 09:38; Stop 10/27/16 at 11:12; Status DC Sodium Chloride (NS 1000 ml Inj) 1,000 ml @ 125 mls/hr Q8H IV Last administered on 10/28/16 05:05; Start 10/27/16 at 10:31 Sodium Chloride (NS Flush) 2 ml UNSCH PRN IV FLUSH FLUSH AFTER USING IV ACCESS ; Start 10/27/16 at 10:45 Sodium Chloride (NS Flush) 2 ml BID IV FLUSH Last administered on 10/28/16 09: 48; Start 10/27/16 at 21:00 Acetaminophen (Tylenol) 650 mg Q4H PRN PO TEMP > 100.4; Start 10/27/16 at 10:45 Bisacodyl (Dulcolax Supp) 10 mg DAILY PRN RECTAL CONSTIPATION; Start 10/27/16 at 10:45 Enoxaparin Sodium 40 mg 40 mg Q24H SQ Last administered on 10/28/16 09:35; Start 10/27/16 at 11:00 Levofloxacin/ Dextrose 150 ml @ 100 mls/hr Q24H IV Last administered on 11:42; Start 10/27/16 at 12:00 Pharmacy Profile Note (Vancomycin Consult Pharmacy) 0 ml @ 0 mls/hr UNSCH OTHER ; Start 10/27/16 at 11:15 Alprazolam (Xanax) 0.25 mg Q12HR PRN PO ANXIETY Last administered on 10/27/16 21:13; Start 10/27/16 at 11:30 Aspirin (Aspirin Chew) 81 mg DAILY CHEW Last administered on 10/28/16 09:33; Start 10/28/16 at 09:00 Budesonide/ Formoterol Fumarate (Symbicort 160-4.5 Inh) 1 puff Q12HR INH Last administered on 10/28/16 09:48; Start 10/27/16 at 21:00 Citalopram Hydrobromide (CeleXA) 40 mg DAILY PO Last administered on 10/28/16 09:33; Start 10/28/16 at 09:00 EZETIMIBE (Zetia) 10 mg DAILY PO Last administered on 10/28/16 09:33; Start at 09:00 Hydralazine HCl (Apresoline) 10 mg TID PO Last administered on 10/28/16 09:33 ; Start 10/27/16 at 13:00 Acetaminophen/ Hydrocodone Bitart (Burt 5-325 Mg) 1 tab Q6H PRN PO PAIN Last administered on 10/28/16 02:39; Start 10/27/16 at 11:30 Hydroxychloroquine Sulfate (Plaquenil) 200 mg DAILY PO Last administered on 09:32; Start 10/28/16 at 09:00 Levothyroxine Sodium (Synthroid) 125 mcg DAILY@0600 PO Last administered on 05:07; Start 10/28/16 at 06:00 Metoprolol Tartrate (Lopressor) 25 mg BID PO Last administered on 10/28/16 09: 33; Start 10/27/16 at 21:00 Docusate Sodium (Colace) 100 mg BID PO constipation Last administered on 09:33; Start 10/27/16 at 21:00 Amlodipine Besylate (Norvasc) 10 mg DAILY PO ; Start 10/27/16 at 12:00; Stop at 12:00; Status DC Lisinopril (Prinivil) 40 mg BID PO Last administered on 10/28/16 09:33; Start 10/27/16 at 11:45 Dextrose (D50w (Vial) Inj) 25 ml UNSCH PRN IV PUSH HYPOGLYCEMIA-SEE COMMENTS; Start 10/27/16 at 11:30 Glucagon (Glucagon Inj) 1 mg UNSCH PRN OTHER HYPOGLYCEMIA-SEE COMMENTS; Start 10/27/16 at 11:30 Insulin Aspart (NovoLOG SUPPLEMENTAL SCALE) 1 ACHS SLIDING SCALE SQ Last administered on 10/28/16 05:19; Start 10/27/16 at 16:00 Insulin Detemir (Levemir Inj) 25 units BID SQ Last administered on 10/28/16 09 :34; Start 10/27/16 at 21:00 Albuterol Sulfate (Albuterol Neb) 1.25 mg Q2HR NEB PRN NEB SHORTNESS OF BREATH ; Start 10/27/16 at 11:45 Amlodipine Besylate 10 mg 10 mg DAILY PO Last administered on 10/28/16 09:33; Start 10/28/16 at 09:00 Vancomycin HCl/ Sodium Chloride (Vancomycin Inj/ NS 500 ml Inj) 520 ml @ 250 mls/hr Q18H IV Last administered on 10/28/16 05:20; Start 10/27/16 at 13:00 Miscellaneous Information SPECIFIC LAB TO BE DRAWN:VANCOMYCIN TROUGH DATE TO... ONCE ONCE .XX ; Start 10/29/16 at 18:45; Stop 10/29/16 at 18:46 Hydromorphone HCl (Dilaudid Pf Inj) 1 mg Q4H PRN IV PUSH pain 1-10 Last administered on 10/28/16 09:36; Start 10/27/16 at 15:15 A/P Assessment and Plan 75-year-old female with multiple medical conditions and multiple hospitalization when the past year presented with fever, myalgias, shortness of breathing Fever of unknown origin -Chest x-ray is negative. CT scan the abdomen pelvis stable. UA was negative. Flu is negative. Sedimentation rate 24. Lactic acid 3.2 in which her last admission it was 2.4. only symptoms of myalgia and shortness of breathing that resolved patient has no other symptoms. -Unknown source. Patient does have a leukocytosis but she also had a leukocytosis on previous admission in which it did improve today. She was also on steroids. -on Levaquin and vancomycin pending workup. Cultures already obtained and so far negative. -Infectious disease consulted and is doing an autoimmune workup and checking for Lyme disease. -Patient had an LP done ordered by emergency medicine physician and so far workup has been negative and based on the studies very unlikely this is meningitis. SIRS -fever and tachycardia -see treatment as above. Shortness of breathing -Patient only had one episode that resolved.. Patient does have history of asthma. -On clinical exam lungs are cleared. Chest x-ray is negative. -Continue home medication. -Albuterol when necessary. Leukocytosis -This was present on last admission. In fact WBC has improved. Patient was on steroids. -Will need to monitor. Will rule out infectious source. -Continue to monitor. Type 2 diabetes insulin-dependent -Patient home regimen Lantus 50 units twice a day and insulin sliding scale. -Continue Levemir and insulin sliding scale. -Diabetic diet. Hypertension/hypothyroidism/rheumatoid arthritis/fibromyalgia/asthma -Continue with home medication. DVT prophylaxis -Lovenox. Discharge Planning Patient had multiple admissions in the past 6 months due to fever of unknown origin. Patient will require continual hospitalization. Noris Marquez MD Oct 28, 2016 10:33
[2016-10-28] MEDS: LEVOFLOXACIN 750 MG PREMIX INJ 150 ML IV SCH (13:04)
--- NOTE | 2016-10-28 14:08 | RADRPT ---
EXAM DATE/TIME: 10/27/2016 14:03 [facility] COMPARISON: No previous studies available for comparison. INDICATIONS : Patient presents with fever in need of lumbar puncture for further evaluation. MEDICAL HISTORY : HTN DM COPD CAD GERD Fibromyalgia Hypothyroidism Hyperlipidemia Arthritis Lumbar stenosis RA SURGICAL HISTORY : Bilat knee replacments Cardiac cath w/ stenting Hysterectomy Exp. Lap Sigmoid resection and colostomy Reverse of colostomy Ventral hernia repair ENCOUNTER: Initial ACUITY: 1 day PAIN SCORE: 6/10 LOCATION: General body pain. LUMBAR PUNCTURE TIME: 14:02 hours FLUORO TIME: 2.5 minutes IMAGE SERIES: 1 ACCESS LEVEL: L3-4 FLUID: 9.5 cc of clear CSF was collected and sent to the laboratory for analysis. PROCEDURE : 1. Fluoroscopic guided lumbar puncture. The risks, benefits and alternatives to the procedure were explained and verbal and written consent w as obtained. The site was prepped in sterile fashion. Full sterile technique was used, including ca p, mask, sterile gloves and gown and a large sterile sheet. Hand hygiene and 2% chlorhexidine and/or betadine/alcohol prep was utilized per protocol for cutaneous antisepsis. The skin and subcutaneous tissues were infiltrated with local anesthetic solution. Due to physical limitation, the patient was placed in the left lateral decubitus position. With fluo roscopic guidance the lumbar thecal sac was punctured at the level above. The fluid described above was removed without difficulty. The patient tolerated the procedure well and there were no complications. CONCLUSION: Uncomplicated fluoroscopically guided lumbar puncture. Ernie Auguste MD on October 28, 2016 at 14:05 Board Certified Radiologist. This report was verified electronically.
[2016-10-28] MEDS: ONDANSETRON HCL 4 MG/2 ML VIAL IV PUSH PRN (15:52)
--- NOTE | 2016-10-28 16:45 | HHI.IDPN ---
Note Infectious Disease Note Patient complaining of stomach ache and nausea. Continue to have diffuse joint aches and difficulty raising left leg. Afebrile. No chills. Had cough and phlem but thinks if is due to her GERD. Cultures negative. CSF culture no growth. Rheumatoid screen negative. Admitted with weakness, fatigue, cough, fever, leukocytosis. PAST MEDICAL HISTORY 1. Rheumatoid arthritis 2. Fibromyalgia 3. Hypertension 4. Diabetes mellitus 5. Hypothyroidism 6. Hyperlipidemia 7. Gastroesophageal reflux disease 8. Lumbar stenosis 9. Asthma 10. Psoriasis 11. Bilateral knee replacements 12. Cardiac stents 13. Hysterectomy 14. Sigmoid resection and colostomy followed by the reversal of colostomy and subsequent bowel resection 15. Ventral hernia repair ALLERGIES PENICILLIN, ERYTHROMYCIN, METFORMIN, MORPHINE, SULFA, IODINE, MERCURY. THE PATIENT IS ALSO ALLERGIC TO SEAFOOD, MOLDS AND EGGS. FAMILY HISTORY Noncontributory. The patient's mom of stroke. The patient's father of stroke. SOCIAL HISTORY No alcohol use. No tobacco, no illicit drugs. OBJECTIVE: Vital Signs Date Time Temp Pulse Resp B/P Pulse Ox O2 Delivery O2 Flow Rate FiO2 10/28/16 16:08 98.8 62 20 165/68 97 10/28/16 14:10 96 Nasal Cannula 2.00 10/28/16 11:52 97.6 65 20 144/62 97 10/28/16 07:45 97.9 69 20 144/62 97 10/28/16 04:00 98.2 69 20 163/70 98 10/28/16 00:25 98.3 71 16 136/61 97 10/27/16 19:58 99.5 76 18 147/65 96 Laboratory Tests Test 10/27/16 07:40 White Blood Count 17.3 TH/MM3 Red Blood Count 4.28 MIL/MM3 Hemoglobin 11.0 GM/DL Hematocrit 34.9 % Mean Corpuscular Volume 81.7 FL Mean Corpuscular Hemoglobin 25.6 PG Mean Corpuscular Hemoglobin 31.4 % Concent Red Cell Distribution Width 16.5 % Platelet Count 318 TH/MM3 Mean Platelet Volume 7.8 FL Neutrophils (%) (Auto) 88.3 % Lymphocytes (%) (Auto) 2.2 % Monocytes (%) (Auto) 7.1 % Eosinophils (%) (Auto) 1.7 % Basophils (%) (Auto) 0.7 % Neutrophils # (Auto) 15.3 TH/MM3 Lymphocytes # (Auto) 0.4 TH/MM3 Monocytes # (Auto) 1.2 TH/MM3 Eosinophils # (Auto) 0.3 TH/MM3 Basophils # (Auto) 0.1 TH/MM3 CBC Comment DIFF FINAL Differential Comment Erythrocyte Sedimentation Rate 25 mm/hr Laboratory Tests Test 10/27/16 10/27/16 10/27/16 07:40 09:10 19:30 Sodium Level 136 MEQ/L Potassium Level 4.1 MEQ/L Chloride Level 100 MEQ/L Carbon Dioxide Level 27.1 MEQ/L Anion Gap 9 MEQ/L Blood Urea Nitrogen 16 MG/DL Creatinine 0.93 MG/DL Estimat Glomerular Filtration 59 ML/MIN Rate Random Glucose 167 MG/DL Calcium Level 8.5 MG/DL Total Bilirubin 0.3 MG/DL Aspartate Amino Transf 22 U/L (AST/SGOT) Alanine Aminotransferase 30 U/L (ALT/SGPT) Alkaline Phosphatase 95 U/L Total Creatine Kinase 84 U/L Troponin I LESS THAN 0.02 NG/ML Total Protein 7.3 GM/DL Albumin 3.3 GM/DL Lipase 71 U/L Lactic Acid Level 3.2 mmol/L 1.7 mmol/L Microbiology Date/Time Procedure Status Source Growth 10/27/16 07:40 Aerobic Blood Culture - Preliminary Resulted Blood Peripheral NO GROWTH IN 1 DAY 10/27/16 07:40 Anaerobic Blood Culture - Preliminary Resulted Blood Peripheral NO GROWTH IN 1 DAY 10/27/16 07:55 Aerobic Blood Culture - Preliminary Resulted Blood Peripheral NO GROWTH IN 1 DAY 10/27/16 07:55 Anaerobic Blood Culture - Preliminary Resulted Blood Peripheral NO GROWTH IN 1 DAY 10/27/16 08:28 Influenza Types A,B Antigen (KATHY) - Final Complete Nasal Aspirate NEGATIVE FOR FLU A AND B ANTIGEN.... 10/27/16 14:02 Gram Stain - Final Resulted Cerebral Spinal Fluid Lumbar Puncture 10/27/16 14:02 CSF Culture - Preliminary Resulted Cerebral Spinal Fluid Lumbar Puncture NO GROWTH IN 24 HOURS. IMAGING: Chest X-Ray 10/27/16719 Signed Impressions: Service Date/Time: October 07:34 - CONCLUSION: No acute cardiopulmonary abnormality is identified. Dre Gandhi MD Abdomen/Pelvis CT 10/27/16719 Signed Impressions: Service Date/Time: October 08:15 - CONCLUSION: 1. No acute finding is identified within the abdomen or pelvis to explain the clinical symptoms. Overall, there has been no significant change since the prior study. 2. There is a right ovarian cystic lesion measuring 3.1 cm. It appears simple on this noncontrast examination. This is an abnormal finding for a postmenopausal patient but this lesion has remained present and not significantly changed in size since August 2013. 3. Stable small anterior abdominal wall hernia containing a portion of a small bowel segment. There are no signs of inflammation or bowel wall thickening. 4. Stable nonacute findings include hepatomegaly with steatosis, moderate size hiatal hernia, 15 mm right adrenal gland adenoma, and severe atherosclerotic disease. Dre Gandhi MD Lumbar Puncture Fluoroscopy 10/27/16 0000 Signed Impressions: Service Date/Time: October 14:03 - CONCLUSION: Uncomplicated fluoroscopically guided lumbar puncture. Ernie Auguste MD PHYSICAL EXAMINATION GENERAL: No acute distress. HEENT: Head is atraumatic. Extraocular movements grossly intact, pupils reactive to light. No icterus. No conjunctival erythema. Oropharynx, dry mucosa. No visible lesions. No thrush. NECK: Supple without adenopathy. LUNGS: Diminished clear breath sounds HEART: Regular S1-S2. No audible murmurs. ABDOMEN: Bowel sounds diminished, soft, Diffuse tenderness. EXTREMITIES: No clubbing, cyanosis or edema. SKIN: The skin is dry and warm. NEUROLOGIC: Decreased strength in the lower extremities particularly on the right side which is 3/5 and the left side is 2/5. Otherwise grossly nonfocal. PSYCHIATRIC: The patient is calm and cooperative. IMPRESSION 1. Fever and leukocytosis in patient with general with diffuse joint aches and joint stiffness. Blood cultures pending, CSF culture pending. However CSF studies do not reflect meningitis. 2. FUO. Probable noninfectious etiology. Possibly related to the patient's arthritis. She does have rheumatoid arthritis and it is unclear whether this could be a flare-up of her underlying rheumatoid arthritis. 3. Given the elevated temperature and elevated white blood cell count, infection is a possibility and probably a viral infection with a viral syndrome is possible as well. RECOMMENDATIONS 1. Neurology consult. LE weakness. 2. Continue vancomycin. 3. Continue Levaquin. 4. Follow Lyme antibody serology. 5. Monitor blood cultures. Call ID on weekend if cultures are positive or persistent high fever. Hunter Hawley MD Oct 28, 2016 16:45
[2016-10-28] MEDS: ALPRAZolam 0.25 MG TAB PO PRN (17:50)
[2016-10-28] MEDS: ZOLPIDEM TARTRATE 5 MG TAB PO PRN (23:08)
[2016-10-29] VITALS (8 sets, daily range): BP systolic 130–161; BP diastolic 60–70; PULSE 63–83; RESP 18–20; TEMP 98.1–101.1; O2SAT 91–94
[2016-10-29] MEDS: VANCOMYCIN INJ 2,000 MG in SODIUM CHLORID 0.9% 500 ML INJ 500 ML IV SCH ×2 (00:24→18:26)
[2016-10-29] MEDS: SODIUM CHLOR 0.9% 1000 ML INJ 1,000 ML IV SCH ×4 (00:25→22:52)
[2016-10-29] MEDS: HYDROmorphone HCL PF 1 MG/ML VIAL IV PUSH PRN ×5 (03:49→21:56)
[2016-10-29] MEDS: INSULIN ASPART SUPPLEMENTAL SCALE SQ SCH ×4 (06:27→21:37)
[2016-10-29] MEDS: LEVOTHYROXINE SODIUM 125 MCG TAB PO SCH (06:39)
[2016-10-29] MEDS: BUDESONIDE-FORMOTEROL 160/4.5 MCG INHALER INH SCH ×2 (08:30→21:34)
[2016-10-29] MEDS: METOPROLOL TARTRATE 25 MG TAB PO SCH ×2 (08:32→21:33)
[2016-10-29] MEDS: ASPIRIN 81 MG CHEW TAB CHEW SCH (08:32)
[2016-10-29] MEDS: INSULIN DETEMIR 100 UNITS/ML VIAL SQ SCH ×2 (08:32→21:34)
[2016-10-29] MEDS: LISINOPRIL 20 MG TAB PO SCH ×2 (08:32→21:33)
[2016-10-29] MEDS: hydrALAZINE HCL 10 MG TAB PO SCH ×3 (08:32→17:13)
[2016-10-29] MEDS: HYDROXYCHLOROQUINE SULFATE 200 MG TAB PO SCH (08:32)
[2016-10-29] MEDS: SODIUM CHLORIDE 0.9% FLUSH 10 ML FLUSH IV FLUSH SCH ×2 (08:33→21:00)
[2016-10-29] MEDS: CITALOPRAM HYDROBROMIDE 20 MG TAB PO SCH (09:47)
[2016-10-29] MEDS: DOCUSATE SODIUM 100 MG CAP PO SCH ×2 (09:47→21:33)
[2016-10-29] MEDS: EZETIMIBE 10 MG TAB PO SCH (09:47)
--- NOTE | 2016-10-29 11:16 | HHI.PR ---
Subjective Remarks f/u for FUO patient stated joints are better today. denied any SOB. she has no other concerns and remains afebrile. Objective Vitals Vital Signs Date Time Temp Pulse Resp B/P Pulse Ox O2 Delivery O2 Flow Rate FiO2 10/29/16 07:38 98.8 70 20 161/67 94 10/29/16 04:18 20 10/29/16 04:00 98.1 66 20 144/64 94 10/29/16 00:05 20 10/29/16 00:00 98.4 63 20 130/60 94 10/28/16 22:10 149/65 10/28/16 20:00 97.1 71 20 180/75 93 10/28/16 18:07 97 Nasal Cannula 2.00 10/28/16 16:08 98.8 62 20 165/68 97 10/28/16 14:10 96 Nasal Cannula 2.00 10/28/16 11:52 97.6 65 20 144/62 97 I/O 10/28/16 10/28/16 10/28/16 10/29/16 10/29/16 10/29/16 07:00 15:00 23:00 07:00 15:00 23:00 Intake Total 4432 ml 1060 ml Balance 4432 ml 1060 ml Intake Oral 240 ml 60 ml IV Total 4192 ml 1000 ml # Voids 9 7 2 # Bowel Movements 0 0 0 Result Diagram: 10/27/1673910/27/1640 Objective Remarks GENERAL: in NAD CARDIOVASCULAR: Regular rate and rhythm without murmurs, gallops, or rubs. RESPIRATORY: Breath sounds equal bilaterally. No accessory muscle use. GASTROINTESTINAL: Abdomen soft, non-tender, nondistended. MUSCULOSKELETAL: No cyanosis, or edema. Joints are within normal limits. BACK: Nontender without obvious deformity. No CVA tenderness. Medications and IVs Current Medications Acetaminophen (Tylenol) 650 mg ONCE ONCE PO Last administered on 10/27/16 07: 51; Start 10/27/16 at 07:30; Stop 10/27/16 at 07:31; Status DC Hydromorphone HCl (Dilaudid Pf Inj) 0.5 mg ONCE ONCE IV Last administered on 07:48; Start 10/27/16 at 07:30; Stop 10/27/16 at 07:31; Status DC Ondansetron HCl 4 mg 4 mg ONCE ONCE IV Last administered on 10/27/16 07:49; Start 10/27/16 at 07:30; Stop 10/27/16 at 07:31; Status DC Sodium Chloride 1,000 ml @ 1,000 mls/hr Q1H ONCE IV Last administered on 07:48; Start 10/27/16 at 07:20; Stop 10/27/16 at 08:19; Status DC Sodium Chloride 1,000 ml @ 1,000 mls/hr Q1H ONCE IV Last administered on 09:14; Start 10/27/16 at 07:20; Stop 10/27/16 at 08:19; Status DC Sodium Chloride 1,000 ml @ 1,000 mls/hr Q1H ONCE IV Last administered on 09:15; Start 10/27/16 at 07:20; Stop 10/27/16 at 08:19; Status DC Vancomycin HCl 1000 mg/Sodium Chloride 250 ml @ 250 mls/hr ONCE STAT IV ; Start 10/27/16 at 09:38; Stop 10/27/16 at 10:37; Status Cancel Aztreonam 2000 mg/ Sodium Chloride 100 ml @ 200 mls/hr ONCE STAT IV ; Start at 09:38; Stop 10/27/16 at 11:15; Status DC Metronidazole 100 ml @ 100 mls/hr ONCE STAT IV Last administered on 10:58; Start 10/27/16 at 09:38; Stop 10/27/16 at 11:12; Status DC Sodium Chloride (NS 1000 ml Inj) 1,000 ml @ 125 mls/hr Q8H IV Last administered on 10/29/16 00:25; Start 10/27/16 at 10:31 Sodium Chloride (NS Flush) 2 ml UNSCH PRN IV FLUSH FLUSH AFTER USING IV ACCESS ; Start 10/27/16 at 10:45 Sodium Chloride (NS Flush) 2 ml BID IV FLUSH Last administered on 10/29/16 08: 33; Start 10/27/16 at 21:00 Acetaminophen (Tylenol) 650 mg Q4H PRN PO TEMP > 100.4; Start 10/27/16 at 10:45 Bisacodyl (Dulcolax Supp) 10 mg DAILY PRN RECTAL CONSTIPATION; Start 10/27/16 at 10:45 Enoxaparin Sodium 40 mg 40 mg Q24H SQ Last administered on 10/28/16 09:35; Start 10/27/16 at 11:00 Levofloxacin/ Dextrose 150 ml @ 100 mls/hr Q24H IV Last administered on 13:04; Start 10/27/16 at 12:00 Pharmacy Profile Note (Vancomycin Consult Pharmacy) 0 ml @ 0 mls/hr UNSCH OTHER ; Start 10/27/16 at 11:15 Alprazolam (Xanax) 0.25 mg Q12HR PRN PO ANXIETY Last administered on 10/28/16 17:50; Start 10/27/16 at 11:30 Aspirin (Aspirin Chew) 81 mg DAILY CHEW Last administered on 10/29/16 08:32; Start 10/28/16 at 09:00 Budesonide/ Formoterol Fumarate (Symbicort 160-4.5 Inh) 1 puff Q12HR INH Last administered on 10/29/16 08:30; Start 10/27/16 at 21:00 Citalopram Hydrobromide (CeleXA) 40 mg DAILY PO Last administered on 10/29/16 09:47; Start 10/28/16 at 09:00 EZETIMIBE (Zetia) 10 mg DAILY PO Last administered on 10/29/16 09:47; Start at 09:00 Hydralazine HCl (Apresoline) 10 mg TID PO Last administered on 10/29/16 08:32 ; Start 10/27/16 at 13:00 Acetaminophen/ Hydrocodone Bitart (Marilla 5-325 Mg) 1 tab Q6H PRN PO PAIN Last administered on 10/28/16 23:08; Start 10/27/16 at 11:30 Hydroxychloroquine Sulfate (Plaquenil) 200 mg DAILY PO Last administered on 08:32; Start 10/28/16 at 09:00 Levothyroxine Sodium (Synthroid) 125 mcg DAILY@0600 PO Last administered on 06:39; Start 10/28/16 at 06:00 Metoprolol Tartrate (Lopressor) 25 mg BID PO Last administered on 10/29/16 08: 32; Start 10/27/16 at 21:00 Docusate Sodium (Colace) 100 mg BID PO constipation Last administered on 09:47; Start 10/27/16 at 21:00 Amlodipine Besylate (Norvasc) 10 mg DAILY PO ; Start 10/27/16 at 12:00; Stop at 12:00; Status DC Lisinopril (Prinivil) 40 mg BID PO Last administered on 10/29/16 08:32; Start 10/27/16 at 11:45 Dextrose (D50w (Vial) Inj) 25 ml UNSCH PRN IV PUSH HYPOGLYCEMIA-SEE COMMENTS; Start 10/27/16 at 11:30 Glucagon (Glucagon Inj) 1 mg UNSCH PRN OTHER HYPOGLYCEMIA-SEE COMMENTS; Start 10/27/16 at 11:30 Insulin Aspart (NovoLOG SUPPLEMENTAL SCALE) 1 ACHS SLIDING SCALE SQ Last administered on 10/28/16 11:24; Start 10/27/16 at 16:00 Insulin Detemir (Levemir Inj) 25 units BID SQ Last administered on 10/29/16 08 :32; Start 10/27/16 at 21:00 Albuterol Sulfate (Albuterol Neb) 1.25 mg Q2HR NEB PRN NEB SHORTNESS OF BREATH ; Start 10/27/16 at 11:45 Amlodipine Besylate 10 mg 10 mg DAILY PO Last administered on 10/29/16 08:31; Start 10/28/16 at 09:00 Vancomycin HCl/ Sodium Chloride (Vancomycin Inj/ NS 500 ml Inj) 520 ml @ 250 mls/hr Q18H IV Last administered on 10/29/16 00:24; Start 10/27/16 at 13:00 Miscellaneous Information SPECIFIC LAB TO BE DRAWN:VANCOMYCIN TROUGH DATE TO... ONCE ONCE .XX ; Start 10/29/16 at 18:45; Stop 10/29/16 at 18:46 Hydromorphone HCl (Dilaudid Pf Inj) 1 mg Q4H PRN IV PUSH pain 1-10 Last administered on 10/29/16 08:33; Start 10/27/16 at 15:15 Zolpidem Tartrate (Ambien) 5 mg HS PRN PO INSOMNIA Last administered on 23:08; Start 10/28/16 at 15:30 Ondansetron HCl (Zofran Inj) 4 mg Q6H PRN IV PUSH NAUSEA OR VOMITING Last administered on 10/28/16 15:52; Start 10/28/16 at 15:30 A/P Assessment and Plan 75-year-old female with multiple medical conditions and multiple hospitalization when the past year presented with fever, myalgias, shortness of breathing Fever of unknown origin -IMPROVING. -Chest x-ray is negative. CT scan the abdomen pelvis stable. UA was negative. Flu is negative. Sedimentation rate 24. Lactic acid 3.2 in which her last admission it was 2.4. only symptoms of myalgia and shortness of breathing that resolved patient has no other symptoms. -Unknown source. Patient does have a leukocytosis but she also had a leukocytosis on previous admission in which it did improve today. She was also on steroids. -on Levaquin and vancomycin pending workup. Cultures already obtained and so far negative. -Infectious disease consulted and is doing an autoimmune workup and checking for Lyme disease. -Patient had an LP done ordered by emergency medicine physician and so far workup has been negative and based on the studies very unlikely this is meningitis. -if work up negative she will need to see a [employer] [employer] as outpatient for further evaluation. B/L multiple joint pain -? related to FUO. -improving. -will need to see [employer] as outpatient. SIRS -fever and tachycardia -see treatment as above. Shortness of breathing -Patient only had one episode that resolved.. Patient does have history of asthma. -On clinical exam lungs are cleared. Chest x-ray is negative. -Continue home medication. -Albuterol when necessary. Leukocytosis -This was present on last admission. In fact WBC has improved. Patient was on steroids. -Will need to monitor. Will rule out infectious source. -Continue to monitor. Type 2 diabetes insulin-dependent -Patient home regimen Lantus 50 units twice a day and insulin sliding scale. -Continue Levemir and insulin sliding scale. -Diabetic diet. Hypertension/hypothyroidism/rheumatoid arthritis/fibromyalgia/asthma -Continue with home medication. DVT prophylaxis -Lovenox. Discharge Planning Patient had multiple admissions in the past 6 months due to fever of unknown origin. Patient will require continual hospitalization. If infectious work up is negative she will need to see [employer] [employer] as outpatient. Noris Marquez MD Oct 29, 2016 11:16
[2016-10-29] MEDS: ACETAMINOPHEN/HYDROcodone 325 MG/5 MG TAB PO PRN ×2 (11:45→17:13)
[2016-10-29] MEDS: ENOXAPARIN SODIUM 40 MG/0.4 ML SYRINGE SQ SCH (11:47)
[2016-10-29] MEDS: ALPRAZolam 0.25 MG TAB PO PRN (11:53)
[2016-10-29 12:19] LABS: AUTOMATED NEUTROPHIL # 6.6 TH/MM3 (1.8-7.7); BASOPHIL % 0.3 % (0.0-2.0); EOSINOPHIL # 0.3 TH/MM3 (0-0.4); EOSINOPHIL % 3.2 % (0.0-4.0); HEMATOCRIT 31.6 % (35.0-46.0); HEMO FLAGS DIFF FINAL; LYMPH % 6.9 % (9.0-44.0); LYMPHOCYTE # 0.6 TH/MM3 (1.0-4.8); MEAN CELL VOLUME 82.5 FL (80.0-100.0); MEAN CORPUSCULAR HEMOGLOBIN 25.9 PG (27.0-34.0); MEAN CORPUSCULAR HGB CONC 31.3 % (32.0-36.0); MONO % 13.5 % (0.0-8.0); NEUT % 76.1 % (16.0-70.0); PLATELET COUNT 267 TH/MM3 (150-450); RED BLOOD COUNT 3.83 MIL/MM3 (4.00-5.30); RED CELL DISTRIBUTION WIDTH 16.9 % (11.6-17.2); WHITE BLOOD COUNT 8.7 TH/MM3 (4.0-11.0)
[2016-10-29 12:27] LABS: BICARBONATE 29.2 MEQ/L (21.0-32.0); POTASSIUM 3.7 MEQ/L (3.5-5.1)
--- NOTE | 2016-10-29 13:03 | RADRPT ---
EXAM DATE/TIME: 10/29/2016 12:35 [facility] COMPARISON: CHEST SINGLE AP, October 27, 2016, 7:34. INDICATIONS : Pain, shortness of breath and coughing. MEDICAL HISTORY : Diabetes mellitus type II. Asthma. Atrial fibrillation. SURGICAL HISTORY : Stent. ENCOUNTER: Initial ACUITY: 3 days PAIN SCORE: 5/10 LOCATION: Bilateral lower chest FINDINGS: PA and lateral views of the chest demonstrate the lungs to be symmetrically aerated without evidence of mass, infiltrate or effusion. The cardiomediastinal contours are unremarkable. Osseous structure s are intact. CONCLUSION: No acute disease. Hector An MD on October 29, 2016 at 13:02 Board Certified Radiologist. This report was verified electronically.
[2016-10-29 13:31] LABS: HSV 1,PCR Negative (Negative)
[2016-10-29] MEDS: LEVOFLOXACIN 750 MG PREMIX INJ 150 ML IV SCH (14:04)
[2016-10-29] MEDS: ONDANSETRON HCL 4 MG/2 ML VIAL IV PUSH PRN (17:18)
[2016-10-29] MEDS ORDERED: PHARMACY ORDERED LAB ONE (18:45)
[2016-10-29] MEDS: ZOLPIDEM TARTRATE 5 MG TAB PO PRN (21:33)
[2016-10-30] VITALS (8 sets, daily range): BP systolic 138–163; BP diastolic 59–65; PULSE 66–88; RESP 18–20; TEMP 96.1–100.3; O2SAT 91–97
[2016-10-30] MEDS: ALPRAZolam 0.25 MG TAB PO PRN ×2 (01:46→18:56)
[2016-10-30] MEDS: ACETAMINOPHEN/HYDROcodone 325 MG/5 MG TAB PO PRN ×2 (01:46→23:39)
[2016-10-30] MEDS: VANCOMYCIN INJ 1,500 MG in SODIUM CHLORID 0.9% 500 ML INJ 500 ML IV SCH ×2 (06:11→17:28)
[2016-10-30] MEDS: INSULIN ASPART SUPPLEMENTAL SCALE SQ SCH ×4 (06:11→20:58)
[2016-10-30] MEDS: LEVOTHYROXINE SODIUM 125 MCG TAB PO SCH (06:11)
[2016-10-30] MEDS: HYDROmorphone HCL PF 1 MG/ML VIAL IV PUSH PRN ×4 (06:15→19:51)
[2016-10-30 07:35] LABS: HEMATOCRIT 31.3 % (35.0-46.0); MEAN CELL VOLUME 81.6 FL (80.0-100.0); MEAN CORPUSCULAR HEMOGLOBIN 25.8 PG (27.0-34.0); MEAN CORPUSCULAR HGB CONC 31.6 % (32.0-36.0); PLATELET COUNT 296 TH/MM3 (150-450); RED BLOOD COUNT 3.84 MIL/MM3 (4.00-5.30); RED CELL DISTRIBUTION WIDTH 16.5 % (11.6-17.2); REVIEW FLAG FINAL; WHITE BLOOD COUNT 8.9 TH/MM3 (4.0-11.0)
[2016-10-30 07:50] LABS: BICARBONATE 28.8 MEQ/L (21.0-32.0); POTASSIUM 3.4 MEQ/L (3.5-5.1)
[2016-10-30] MEDS: ASPIRIN 81 MG CHEW TAB CHEW SCH (09:14)
[2016-10-30] MEDS: CITALOPRAM HYDROBROMIDE 20 MG TAB PO SCH (09:15)
[2016-10-30] MEDS: HYDROXYCHLOROQUINE SULFATE 200 MG TAB PO SCH (09:15)
[2016-10-30] MEDS: METOPROLOL TARTRATE 25 MG TAB PO SCH ×2 (09:15→20:55)
[2016-10-30] MEDS: DOCUSATE SODIUM 100 MG CAP PO SCH ×2 (09:15→20:55)
[2016-10-30] MEDS: hydrALAZINE HCL 10 MG TAB PO SCH ×3 (09:15→17:27)
[2016-10-30] MEDS: EZETIMIBE 10 MG TAB PO SCH (09:15)
[2016-10-30] MEDS: LISINOPRIL 20 MG TAB PO SCH ×2 (09:15→20:56)
[2016-10-30] MEDS: BUDESONIDE-FORMOTEROL 160/4.5 MCG INHALER INH SCH ×2 (09:16→21:08)
[2016-10-30] MEDS: INSULIN DETEMIR 100 UNITS/ML VIAL SQ SCH ×2 (09:16→20:55)
[2016-10-30] MEDS: SODIUM CHLORIDE 0.9% FLUSH 10 ML FLUSH IV FLUSH SCH ×2 (09:17→20:56)
[2016-10-30] MEDS ORDERED: POTASSIUM CHLORIDE 20 MEQ CONTROLLED RELEASE TAB PO ONE ×2 (10:00→12:00)
[2016-10-30] MEDS ORDERED: FUROSEMIDE 40 MG/4 ML VIAL IV PUSH ONE (10:00)
--- NOTE | 2016-10-30 10:28 | HHI.PR ---
Subjective Remarks This is a pleasant 75 y/o Female with DM II, CAD, rheumatoid arthritis, COPD, who came to ER with fever, body aches, Shortness of breath seen by ID specialist with diagnosis of Fever and Leukocytosis following blood cultures, CSF culture pending, but do not reflect meningitis, probable fever non infectious etiology, probable viral syndrome, recommended Neurology Consult LE weakness, continue Vancomycin, Continue Levaquin, Follow Lyme antibody serology. today seen and discussed with nurse Miss Lopez, she has respiratory insufficiency probable related to IV fluids overload, given Lasix, and Bronchodilator, Mucolytic and Incentive spirometry. replacing electrolytes had temperature of 100.3 F. following closely. Objective Vital Signs Date Time Temp Pulse Resp B/P Pulse Ox O2 Delivery O2 Flow Rate FiO2 10/30/16 07:38 98.7 74 18 163/64 91 10/30/16 04:00 98.6 77 20 138/62 93 10/30/16 00:00 100.3 75 20 150/62 92 10/29/16 22:26 18 10/29/16 22:26 18 10/29/16 20:00 101.1 77 20 160/64 94 10/29/16 18:13 20 10/29/16 18:00 91 Nasal Cannula 2.00 10/29/16 16:04 100.1 83 18 159/70 91 10/29/16 11:58 100.3 74 18 133/64 94 10/29/16 11:32 94 Nasal Cannula 2.00 I/O 10/29/16 10/29/16 10/29/16 10/30/16 10/30/16 10/30/16 07:00 15:00 23:00 07:00 15:00 23:00 Intake Total 1060 ml 646 ml 1297 ml Balance 1060 ml 646 ml 1297 ml Intake Oral 60 ml 120 ml IV Total 1000 ml 646 ml 1177 ml # Voids 2 5 2 # Bowel Movements 0 0 Result Diagram: 10/30/16 0558 10/30/16 0558 Imaging Last Impressions Chest X-Ray 10/29/16 0000 Signed Impressions: Service Date/Time: Saturday, October 29, 2016 12:35 - CONCLUSION: No acute disease. Hector An MD Abdomen/Pelvis CT 10/27/16 0720 Signed Impressions: Service Date/Time: October 08:15 - CONCLUSION: 1. No acute finding is identified within the abdomen or pelvis to explain the clinical symptoms. Overall, there has been no significant change since the prior study. 2. There is a right ovarian cystic lesion measuring 3.1 cm. It appears simple on this noncontrast examination. This is an abnormal finding for a postmenopausal patient but this lesion has remained present and not significantly changed in size since August 2013. 3. Stable small anterior abdominal wall hernia containing a portion of a small bowel segment. There are no signs of inflammation or bowel wall thickening. 4. Stable nonacute findings include hepatomegaly with steatosis, moderate size hiatal hernia, 15 mm right adrenal gland adenoma, and severe atherosclerotic disease. Dre Gandhi MD Lumbar Puncture Fluoroscopy 10/27/16 0000 Signed Impressions: Service Date/Time: October 14:03 - CONCLUSION: Uncomplicated fluoroscopically guided lumbar puncture. Ernie Auguste MD Procedures No procedures performed. Other Results Laboratory Tests Test 10/27/16 10/27/16 10/27/16 10/27/16 07:40 07:42 08:32 14:02 Erythrocyte Sedimentation Rate 25 mm/hr Prothrombin Time 9.8 SEC Prothromb Time International 0.9 RATIO Ratio Activated Partial 25.4 SEC Thromboplast Time Total Bilirubin 0.3 MG/DL Aspartate Amino Transf 22 U/L (AST/SGOT) Alanine Aminotransferase 30 U/L (ALT/SGPT) Alkaline Phosphatase 95 U/L Total Creatine Kinase 84 U/L Troponin I LESS THAN 0.02 NG/ML Total Protein 7.3 GM/DL Albumin 3.3 GM/DL Lipase 71 U/L Blood Gas Puncture Site IV Blood Gas Patient Temperature 98.6 Venous Blood pH 7.42 Venous Blood Partial Pressure 42 mmHg CO2 Venous Blood Partial Pressure 26 mmHg O2 Venous Blood HCO3 27 mmol/L Venous Blood Oxygen Saturation 41 % Venous Blood Oxygen Content 6.1 Vol % Venous Blood Base Excess 2.6 mmol/L Oxygen Delivery Device NASAL CANNULA Blood Gas Liter Flow 2 L/M Urine Color YELLOW Urine Turbidity CLEAR Urine pH 6.5 Urine Specific [place] 1.014 Urine Protein TRACE mg/dL Urine Glucose (UA) NEG mg/dL Urine Ketones NEG mg/dL Urine Occult Blood NEG Urine Nitrite NEG Urine Bilirubin NEG Urine Urobilinogen LESS THAN 2.0 MG/DL Urine Leukocyte Esterase NEG Urine RBC LESS THAN 1 /hpf Urine WBC 1 /hpf Urine Squamous Epithelial <1 /hpf Cells Urine Mucus FEW /lpf Microscopic Urinalysis Comment CATH-CULT NOT IND CSF Volume (Tube 1) 1.5 ML CSF Supernatant Color (tube 1) CLEAR CSF Gross Blood (Tube 1) 0 CSF Volume (Tube 2) 1.3 ML CSF Supernatant Color (tube 2) CLEAR CSF Gross Blood (Tube 2) 0 CSF WBC (Tube 2) 4 /MM3 CSF RBC (Tube 2) 2 /MM3 CSF Volume (Tube 3) 1.5 ML CSF Supernatant Color (tube 3) CLEAR CSF Gross Blood (Tube 3) 0 CSF Volume (Tube 4) 4.0 ML CSF Supernatant Color (tube 4) CLEAR CSF Gross Blood (Tube 4) 0 CSF Neutrophils 0 % CSF Lymphocytes 81 % CSF Monocytes 19 % CSF Glucose 88 MG/DL CSF Total Protein 30.2 MG/DL Herpes Simplex Virus I DNA Negative (PCR) Herpes Simplex Virus II DNA Negative (PCR) Test 10/27/16 10/28/16 10/29/16 10/29/16 19:30 06:19 11:45 18:05 Lactic Acid Level 1.7 mmol/L Rheumatoid Factor Screen NEGATIVE Rheumatoid Factor Titer IU/ML Anti-Nuclear Antibody Screen NEG Neutrophils (%) (Auto) 76.1 % Lymphocytes (%) (Auto) 6.9 % Monocytes (%) (Auto) 13.5 % Eosinophils (%) (Auto) 3.2 % Basophils (%) (Auto) 0.3 % Neutrophils # (Auto) 6.6 TH/MM3 Lymphocytes # (Auto) 0.6 TH/MM3 Monocytes # (Auto) 1.2 TH/MM3 Eosinophils # (Auto) 0.3 TH/MM3 Basophils # (Auto) 0.0 TH/MM3 CBC Comment DIFF FINAL Differential Comment Vancomycin Level Trough 12.7 MCG/ML Test 10/30/16 05:58 White Blood Count 8.9 TH/MM3 Red Blood Count 3.84 MIL/MM3 Hemoglobin 9.9 GM/DL Hematocrit 31.3 % Mean Corpuscular Volume 81.6 FL Mean Corpuscular Hemoglobin 25.8 PG Mean Corpuscular Hemoglobin 31.6 % Concent Red Cell Distribution Width 16.5 % Platelet Count 296 TH/MM3 Mean Platelet Volume 7.9 FL Sodium Level 136 MEQ/L Potassium Level 3.4 MEQ/L Chloride Level 99 MEQ/L Carbon Dioxide Level 28.8 MEQ/L Anion Gap 8 MEQ/L Blood Urea Nitrogen 7 MG/DL Creatinine 0.79 MG/DL Estimat Glomerular Filtration 71 ML/MIN Rate Random Glucose 159 MG/DL Calcium Level 8.4 MG/DL Objective Remarks GENERAL: Obesity with mild to moderate respiratory distress. SKIN: Warm and dry. HEAD: Atraumatic. Normocephalic. EYES: Pupils equal and round. No scleral icterus. No injection or drainage. ENT: No nasal bleeding or discharge. Mucous membranes pink and moist. NECK: Trachea midline. No JVD. CARDIOVASCULAR: Regular rate and rhythm. RESPIRATORY: Decreased breath sounds bilateral, Mild expiratory wheezing, no crackles. GASTROINTESTINAL: Abdomen soft, non-tender, nondistended. MUSCULOSKELETAL: Extremities without clubbing, cyanosis, edema 2+ NEUROLOGICAL: Awake and alert. No focal deficits. PSYCHIATRIC: Appropriate mood and affect. Medications and IVs Current Medications Medications (Trade) Dose Ordered Sig/Amador Route Start Time Stop Time Status Last Admin (NS Flush) 2 ml UNSCH PRN IV FLUSH 10/27/16 10:45 (NS Flush) 2 ml BID IV FLUSH 10/27/16 21:00 10/30/16 09:17 (Tylenol) 650 mg Q4H PRN PO 10/27/16 10:45 10/29/16 21:33 (Dulcolax Supp) 10 mg DAILY PRN RECTAL 10/27/16 10:45 Enoxaparin Sodium 40 mg 40 mg Q24H SQ 10/27/16 11:00 10/29/16 11:47 Levofloxacin/ Dextrose 150 ml @ 100 mls/hr Q24H IV 10/27/16 12:00 10/29/16 14:04 (Vancomycin Consult Pharmacy) 0 ml @ 0 mls/hr UNSCH OTHER 10/27/16 11:15 (Xanax) 0.25 mg Q12HR PRN PO 10/27/16 11:30 10/30/16 01:46 (Aspirin Chew) 81 mg DAILY CHEW 10/28/16 09:00 10/30/16 09:14 (Symbicort 160-4.5 Inh) 1 puff Q12HR INH 10/27/16 21:00 10/30/16 09:16 (CeleXA) 40 mg DAILY PO 10/28/16 09:00 10/30/16 09:15 (Zetia) 10 mg DAILY PO 10/28/16 09:00 10/30/16 09:15 (Apresoline) 10 mg TID PO 10/27/16 13:00 10/30/16 09:15 ([place] 5-325 Mg) 1 tab Q6H PRN PO 10/27/16 11:30 10/30/16 01:46 (Plaquenil) 200 mg DAILY PO 10/28/16 09:00 10/30/16 09:15 (Synthroid) 125 mcg DAILY@0600 PO 10/28/16 06:00 10/30/16 06:11 (Lopressor) 25 mg BID PO 10/27/16 21:00 10/30/16 09:15 (Colace) 100 mg BID PO 10/27/16 21:00 10/30/16 09:15 (Prinivil) 40 mg BID PO 10/27/16 11:45 10/30/16 09:15 (D50w (Vial) Inj) 25 ml UNSCH PRN IV PUSH 10/27/16 11:30 (Glucagon Inj) 1 mg UNSCH PRN OTHER 10/27/16 11:30 (Levemir Inj) 25 units BID SQ 10/27/16 21:00 10/30/16 09:16 (Norvasc) 10 mg DAILY PO 10/28/16 09:00 10/30/16 09:15 (Dilaudid Pf Inj) 1 mg Q4H PRN IV PUSH 10/27/16 15:15 10/30/16 10:20 (Ambien) 5 mg HS PRN PO 10/28/16 15:30 10/29/16 21:33 Ondansetron HCl 4 mg 4 mg Q6H PRN IV PUSH 10/28/16 15:30 10/29/16 17:18 (Vancomycin Inj/ NS 500 ml Inj) 515 ml @ 250 mls/hr Q12H IV 10/30/16 06:00 10/30/16 06:11 Miscellaneous Information SPECIFIC LAB TO BE DRAWN:VANCOMYCIN TROUGH DATE TO... ONCE ONCE .XX 10/31/16 17:45 10/31/16 17:46 (KCl) 20 meq ONCE ONCE PO 10/30/16 12:00 10/30/16 12:01 (Mucinex Er) 600 mg BID PO 10/30/16 10:00 A/P Assessment and Plan 1. Fever Of unknown Origin she is been having fever for the last six months. ID specialist following recommended to continue antibiotics, broad spectrum and follow, fever, cultures, probable viral etiology, Levaquin and Vancomycin. follow CSF Leukocytosis improved. 2. Rheumatoid Arthritis recommended on this admission to follow systems specialist as outpatient 3. Respiratory Insufficiency worsening today, had CXR within normal limits, probable related today to IV fluids and overload but no crackles. has swollen legs Bronchodilators, Mucolytic and Incentive spirometry. probable also COPD exacerbation, started management and following, D Dimers may need another V/Q scan again the last one performed in July this year was negative. 4. DM II continue Insulin management. Diabetic management. 5. Hypertension controlled. 6. Hypothyroidism continue Hormonal replacement 7. Obesity strongly recommended diet and exercise as outpatient. DVT prophylaxis -Lovenox. Discharge Planning Patient had multiple admissions in the past 6 months due to fever of unknown origin. Patient will require continual hospitalization. If infectious work up is negative she will need to see Chief Juvenile Probation Officer as outpatient. Ezekiel Brink MD Oct 30, 2016 10:28 Patient had multiple admissions in the past 6 months due to fever of unknown origin. Patient will require continual hospitalization. If infectious work up is negative she will need to see Chief Juvenile Probation Officer as outpatient. Ezekiel Brink MD Oct 30, 2016 10:28
[2016-10-30] MEDS: ENOXAPARIN SODIUM 40 MG/0.4 ML SYRINGE SQ SCH (12:16)
[2016-10-30] MEDS: guaiFENesin E.R. 600 MG TAB PO SCH ×2 (12:16→20:56)
[2016-10-30] MEDS: LEVOFLOXACIN 750 MG PREMIX INJ 150 ML IV SCH (12:20)
[2016-10-30] MEDS: ONDANSETRON HCL 4 MG/2 ML VIAL IV PUSH PRN (13:53)
[2016-10-30] MEDS ORDERED: methylPREDNISolone SOD SUCC 125 MG/2 ML VIAL IV PUSH ONE (15:00)
[2016-10-30] MEDS: ZOLPIDEM TARTRATE 5 MG TAB PO PRN (21:04)
[2016-10-31] VITALS (11 sets, daily range): BP systolic 148–194; BP diastolic 65–78; PULSE 72–79; RESP 20–22; TEMP 97.7–98.3; O2SAT 94–99
[2016-10-31] MEDS: RESP: ALBUTEROL 2.5 MG/IPRATROPIUM 0.5 MG NEB (SCH) NEB ×5 (02:03→15:55)
[2016-10-31] MEDS: LEVOTHYROXINE SODIUM 125 MCG TAB PO SCH (06:42)
[2016-10-31] MEDS: INSULIN ASPART SUPPLEMENTAL SCALE SQ SCH ×4 (06:43→23:28)
[2016-10-31] MEDS: VANCOMYCIN INJ 1,500 MG in SODIUM CHLORID 0.9% 500 ML INJ 500 ML IV SCH ×2 (06:44→18:13)
[2016-10-31] MEDS: guaiFENesin E.R. 600 MG TAB PO SCH ×2 (08:56→22:27)
[2016-10-31] MEDS: hydrALAZINE HCL 10 MG TAB PO SCH ×3 (08:56→18:15)
[2016-10-31] MEDS: EZETIMIBE 10 MG TAB PO SCH (08:57)
[2016-10-31] MEDS: METOPROLOL TARTRATE 25 MG TAB PO SCH ×2 (08:57→22:27)
[2016-10-31] MEDS: ASPIRIN 81 MG CHEW TAB CHEW SCH (08:57)
[2016-10-31] MEDS: HYDROXYCHLOROQUINE SULFATE 200 MG TAB PO SCH (08:59)
[2016-10-31] MEDS: CITALOPRAM HYDROBROMIDE 20 MG TAB PO SCH (08:59)
[2016-10-31] MEDS: DOCUSATE SODIUM 100 MG CAP PO SCH ×2 (08:59→22:27)
[2016-10-31] MEDS: ALPRAZolam 0.25 MG TAB PO PRN ×2 (08:59→19:52)
[2016-10-31] MEDS: LISINOPRIL 20 MG TAB PO SCH ×2 (08:59→22:26)
[2016-10-31] MEDS: BUDESONIDE-FORMOTEROL 160/4.5 MCG INHALER INH SCH ×2 (09:00→22:28)
[2016-10-31] MEDS: INSULIN DETEMIR 100 UNITS/ML VIAL SQ SCH ×2 (09:08→23:28)
--- NOTE | 2016-10-31 10:20 | HHI.PR ---
Subjective Remarks This is a pleasant 75 y/o Female with DM II, CAD, rheumatoid arthritis, COPD, who came to ER with fever, body aches, Shortness of breath seen by ID specialist with diagnosis of Fever and Leukocytosis following blood cultures, CSF culture pending, but do not reflect meningitis, probable fever non infectious etiology, probable viral syndrome, recommended Neurology Consult LE weakness, continue Vancomycin, Continue Levaquin, Follow Lyme antibody serology. today seen and discussed with nurse Miss Lopez, she has respiratory insufficiency probable related to IV fluids overload, given Lasix, and Bronchodilator, Mucolytic and Incentive spirometry. replacing electrolytes had temperature of 100.3 F. following closely. 10/31: Seen in her bedroom, afebrile, followed by ID specialist recommended to send another sputum culture, Continue Vancomycin continue Levaquin, follow lyme's antibody serology. no nausea, vomit or diarrhea. Objective Vital Signs Date Time Temp Pulse Resp B/P Pulse Ox O2 Delivery O2 Flow Rate FiO2 10/31/16 08:16 97 Venturi Mask 35 10/31/16 08:00 98.2 75 20 194/78 97 10/31/16 04:00 97.7 72 20 183/78 97 10/31/16 02:03 97 Venturi Mask 35 10/31/16 00:39 20 10/31/16 00:00 97.9 73 20 166/69 95 10/30/16 20:21 22 10/30/16 20:00 99.9 88 20 148/65 97 10/30/16 16:43 96 Venturi Mask 6.00 50 10/30/16 15:10 97.5 74 18 156/59 92 10/30/16 12:12 96.1 66 18 158/61 95 10/30/16 10:30 93 Venturi Mask 50 I/O 10/30/16 10/30/16 10/30/16 10/31/16 10/31/16 10/31/16 07:00 15:00 23:00 07:00 15:00 23:00 Intake Total 1297 ml 480 ml 120 ml 120 ml Balance 1297 ml 480 ml 120 ml 120 ml Intake Oral 120 ml 480 ml 120 ml 120 ml IV Total 1177 ml # Voids 2 6 5 1 # Bowel Movements 0 0 0 0 Result Diagram: 10/30/16 0558 10/30/16 0558 Imaging Last Impressions Chest X-Ray 10/29/16 0000 Signed Impressions: Service Date/Time: Saturday, October 29, 2016 12:35 - CONCLUSION: No acute disease. Hector An MD Abdomen/Pelvis CT 10/27/16 0720 Signed Impressions: Service Date/Time: October 08:15 - CONCLUSION: 1. No acute finding is identified within the abdomen or pelvis to explain the clinical symptoms. Overall, there has been no significant change since the prior study. 2. There is a right ovarian cystic lesion measuring 3.1 cm. It appears simple on this noncontrast examination. This is an abnormal finding for a postmenopausal patient but this lesion has remained present and not significantly changed in size since August 2013. 3. Stable small anterior abdominal wall hernia containing a portion of a small bowel segment. There are no signs of inflammation or bowel wall thickening. 4. Stable nonacute findings include hepatomegaly with steatosis, moderate size hiatal hernia, 15 mm right adrenal gland adenoma, and severe atherosclerotic disease. Dre Gandhi MD Lumbar Puncture Fluoroscopy 10/27/16 0000 Signed Impressions: Service Date/Time: October 14:03 - CONCLUSION: Uncomplicated fluoroscopically guided lumbar puncture. Ernie Auguste MD Procedures No procedures performed. Other Results Laboratory Tests Test 10/27/16 10/27/16 10/27/16 10/27/16 07:40 07:42 08:32 14:02 Erythrocyte Sedimentation Rate 25 mm/hr Prothrombin Time 9.8 SEC Prothromb Time International 0.9 RATIO Ratio Activated Partial 25.4 SEC Thromboplast Time Total Bilirubin 0.3 MG/DL Aspartate Amino Transf 22 U/L (AST/SGOT) Alanine Aminotransferase 30 U/L (ALT/SGPT) Alkaline Phosphatase 95 U/L Total Creatine Kinase 84 U/L Troponin I LESS THAN 0.02 NG/ML Total Protein 7.3 GM/DL Albumin 3.3 GM/DL Lipase 71 U/L Blood Gas Puncture Site IV Blood Gas Patient Temperature 98.6 Venous Blood pH 7.42 Venous Blood Partial Pressure 42 mmHg CO2 Venous Blood Partial Pressure 26 mmHg O2 Venous Blood HCO3 27 mmol/L Venous Blood Oxygen Saturation 41 % Venous Blood Oxygen Content 6.1 Vol % Venous Blood Base Excess 2.6 mmol/L Oxygen Delivery Device NASAL CANNULA Blood Gas Liter Flow 2 L/M Urine Color YELLOW Urine Turbidity CLEAR Urine pH 6.5 Urine Specific [place] 1.014 Urine Protein TRACE mg/dL Urine Glucose (UA) NEG mg/dL Urine Ketones NEG mg/dL Urine Occult Blood NEG Urine Nitrite NEG Urine Bilirubin NEG Urine Urobilinogen LESS THAN 2.0 MG/DL Urine Leukocyte Esterase NEG Urine RBC LESS THAN 1 /hpf Urine WBC 1 /hpf Urine Squamous Epithelial <1 /hpf Cells Urine Mucus FEW /lpf Microscopic Urinalysis Comment CATH-CULT NOT IND CSF Volume (Tube 1) 1.5 ML CSF Supernatant Color (tube 1) CLEAR CSF Gross Blood (Tube 1) 0 CSF Volume (Tube 2) 1.3 ML CSF Supernatant Color (tube 2) CLEAR CSF Gross Blood (Tube 2) 0 CSF WBC (Tube 2) 4 /MM3 CSF RBC (Tube 2) 2 /MM3 CSF Volume (Tube 3) 1.5 ML CSF Supernatant Color (tube 3) CLEAR CSF Gross Blood (Tube 3) 0 CSF Volume (Tube 4) 4.0 ML CSF Supernatant Color (tube 4) CLEAR CSF Gross Blood (Tube 4) 0 CSF Neutrophils 0 % CSF Lymphocytes 81 % CSF Monocytes 19 % CSF Glucose 88 MG/DL CSF Total Protein 30.2 MG/DL Herpes Simplex Virus I DNA Negative (PCR) Herpes Simplex Virus II DNA Negative (PCR) Test 10/27/16 10/28/16 10/29/16 10/29/16 19:30 06:19 11:45 18:05 Lactic Acid Level 1.7 mmol/L Rheumatoid Factor Screen NEGATIVE Rheumatoid Factor Titer IU/ML Anti-Nuclear Antibody Screen NEG Neutrophils (%) (Auto) 76.1 % Lymphocytes (%) (Auto) 6.9 % Monocytes (%) (Auto) 13.5 % Eosinophils (%) (Auto) 3.2 % Basophils (%) (Auto) 0.3 % Neutrophils # (Auto) 6.6 TH/MM3 Lymphocytes # (Auto) 0.6 TH/MM3 Monocytes # (Auto) 1.2 TH/MM3 Eosinophils # (Auto) 0.3 TH/MM3 Basophils # (Auto) 0.0 TH/MM3 CBC Comment DIFF FINAL Differential Comment Vancomycin Level Trough 12.7 MCG/ML Test 10/30/16 10/30/16 05:58 13:47 White Blood Count 8.9 TH/MM3 Red Blood Count 3.84 MIL/MM3 Hemoglobin 9.9 GM/DL Hematocrit 31.3 % Mean Corpuscular Volume 81.6 FL Mean Corpuscular Hemoglobin 25.8 PG Mean Corpuscular Hemoglobin 31.6 % Concent Red Cell Distribution Width 16.5 % Platelet Count 296 TH/MM3 Mean Platelet Volume 7.9 FL Sodium Level 136 MEQ/L Potassium Level 3.4 MEQ/L Chloride Level 99 MEQ/L Carbon Dioxide Level 28.8 MEQ/L Anion Gap 8 MEQ/L Blood Urea Nitrogen 7 MG/DL Creatinine 0.79 MG/DL Estimat Glomerular Filtration 71 ML/MIN Rate Random Glucose 159 MG/DL Calcium Level 8.4 MG/DL D-Dimer Quantitative (PE/DVT) 0.91 MG/L FEU Objective Remarks GENERAL: Obesity with mild to moderate respiratory distress. SKIN: Warm and dry. HEAD: Atraumatic. Normocephalic. EYES: Pupils equal and round. No scleral icterus. No injection or drainage. ENT: No nasal bleeding or discharge. Mucous membranes pink and moist. NECK: Trachea midline. No JVD. CARDIOVASCULAR: Regular rate and rhythm. RESPIRATORY: Decreased breath sounds bilateral, Mild expiratory wheezing, no crackles. GASTROINTESTINAL: Abdomen soft, non-tender, nondistended. MUSCULOSKELETAL: Extremities without clubbing, cyanosis, edema 2+ NEUROLOGICAL: Awake and alert. No focal deficits. PSYCHIATRIC: Appropriate mood and affect. Medications and IVs Current Medications Medications (Trade) Dose Ordered Sig/[place]ador Route Start Time Stop Time Status Last Admin (NS Flush) 2 ml UNSCH PRN IV FLUSH 10/27/16 10:45 (NS Flush) 2 ml BID IV FLUSH 10/27/16 21:00 10/30/16 09:17 (Tylenol) 650 mg Q4H PRN PO 10/27/16 10:45 10/29/16 21:33 (Dulcolax Supp) 10 mg DAILY PRN RECTAL 10/27/16 10:45 Enoxaparin Sodium 40 mg 40 mg Q24H SQ 10/27/16 11:00 10/30/16 12:16 (Vancomycin Consult Pharmacy) 0 ml @ 0 mls/hr UNSCH OTHER 10/27/16 11:15 (Xanax) 0.25 mg Q12HR PRN PO 10/27/16 11:30 10/31/16 08:59 (Aspirin Chew) 81 mg DAILY CHEW 10/28/16 09:00 10/31/16 08:57 (Symbicort 160-4.5 Inh) 1 puff Q12HR INH 10/27/16 21:00 10/31/16 09:00 (CeleXA) 40 mg DAILY PO 10/28/16 09:00 10/31/16 08:59 (Zetia) 10 mg DAILY PO 10/28/16 09:00 10/31/16 08:57 (Apresoline) 10 mg TID PO 10/27/16 13:00 10/31/16 08:56 ([place] 5-325 Mg) 1 tab Q6H PRN PO 10/27/16 11:30 10/30/16 23:39 (Plaquenil) 200 mg DAILY PO 10/28/16 09:00 10/31/16 08:59 (Synthroid) 125 mcg DAILY@0600 PO 10/28/16 06:00 10/31/16 06:42 (Lopressor) 25 mg BID PO 10/27/16 21:00 10/31/16 08:57 (Colace) 100 mg BID PO 10/27/16 21:00 10/31/16 08:59 (Prinivil) 40 mg BID PO 10/27/16 11:45 10/31/16 08:59 (D50w (Vial) Inj) 25 ml UNSCH PRN IV PUSH 10/27/16 11:30 (Glucagon Inj) 1 mg UNSCH PRN OTHER 10/27/16 11:30 (Levemir Inj) 25 units BID SQ 10/27/16 21:00 10/31/16 09:08 (Norvasc) 10 mg DAILY PO 10/28/16 09:00 10/31/16 08:56 (Dilaudid Pf Inj) 1 mg Q4H PRN IV PUSH 10/27/16 15:15 10/30/16 19:51 (Ambien) 5 mg HS PRN PO 10/28/16 15:30 10/30/16 21:04 Ondansetron HCl 4 mg 4 mg Q6H PRN IV PUSH 10/28/16 15:30 10/30/16 13:53 (Vancomycin Inj/ NS 500 ml Inj) 515 ml @ 250 mls/hr Q12H IV 10/30/16 06:00 10/31/16 06:44 Miscellaneous Information SPECIFIC LAB TO BE DRAWN:VANCOMYCIN TROUGH DATE TO... ONCE ONCE .XX 10/31/16 17:45 10/31/16 17:46 (Mucinex Er) 600 mg BID PO 10/30/16 10:00 10/31/16 08:56 (Levaquin) 750 mg DAILY@12 PO 10/31/16 12:00 A/P Assessment and Plan 1. Fever Of unknown Origin she is been having fever for the last six months. afebrile. ID specialist following recommended to continue antibiotics, broad spectrum and follow, fever, cultures, probable viral etiology, Levaquin and Vancomycin. follow CSF Leukocytosis improved. recommended to continue Vancomycin and Levaquin and follow Lyme serology. 2. Rheumatoid Arthritis recommended on this admission to follow sustainability specialist as outpatient 3. Respiratory Insufficiency worsening today, had CXR within normal limits, probable related today to IV fluids and overload but no crackles. has swollen legs Bronchodilators, Mucolytic and Incentive spirometry. probable also COPD exacerbation, started management and following, D Dimers may need another V/Q scan again the last one performed in July this year was negative. 4. DM II continue Insulin management. Diabetic management. 5. Hypertension uncontrolled continue present management. 6. Hypothyroidism continue Hormonal replacement 7. Obesity strongly recommended diet and exercise as outpatient. DVT prophylaxis -Lovenox. Discharge Planning Patient had multiple admissions in the past 6 months due to fever of unknown origin. Patient will require continual hospitalization. If infectious work up is negative she will need to see Client Support Coordinator as outpatient. Ezekiel rBink MD October 31, 2016 10:20
--- NOTE | 2016-10-31 11:18 | RADRPT ---
EXAM DATE/TIME: 10/31/2016 10:10 [facility] COMPARISON: CHEST PA & LAT, October 29, 2016, 12:35. INDICATIONS : Dyspnea with fever. DOSE: 0.95 mCi Tc99m DTPA 8.7 Tc99m MAA MEDICAL HISTORY : Rheumatoid arthritis. Chronic obstructive pulmonary disease. Diabetes mellitus type 2. SURGICAL HISTORY : Total knee replacement, right. Total knee replacement, left. Hysterectomy. ENCOUNTER: Initial ACUITY: 2 days PAIN SCALE: 0/10 LOCATION: chest TECHNIQUE: Following five minutes of tidal breathing of DTPA aerosol, planar images of the lungs were performed in eight projections. The patient was then injected with MAA, and eight-view perfusion scan was perf ormed. FINDINGS: There are vague matched nonsegmental ventilation/perfusion abnormalities. No segmental or subsegmenta l mismatch is suggested to suggest pulmonary embolism. There is moderate central deposition of aeroso l tracer and swallowed tracer noted. CONCLUSION: Low probability scan for pulmonary embolism. Dre Laguerre MD on October 31, 2016 at 11:15 Board Certified Radiologist. This report was verified electronically.
[2016-10-31] MEDS ORDERED: GENTAMICIN SULFATE 80 MG/2 ML VIAL ONE (11:22)
[2016-10-31] MEDS: HYDROmorphone HCL PF 1 MG/ML VIAL IV PUSH PRN ×2 (12:36→23:22)
[2016-10-31] MEDS: LEVOFLOXACIN 750 MG TAB PO SCH (12:40)
[2016-10-31] MEDS: ENOXAPARIN SODIUM 40 MG/0.4 ML SYRINGE SQ SCH (12:41)
--- NOTE | 2016-10-31 16:09 | HHI.IDPN ---
Note Infectious Disease Note Patient coughing up green sputum. Joint aches has improved and no longer has difficulty raising left leg. Afebrile. No chills. Alert. Cultures negative. CSF culture no growth. Lyme's antibody in CSF pending. Rheumatoid screen negative. Admitted with weakness, fatigue, cough, fever, leukocytosis. PAST MEDICAL HISTORY 1. Rheumatoid arthritis 2. Fibromyalgia 3. Hypertension 4. Diabetes mellitus 5. Hypothyroidism 6. Hyperlipidemia 7. Gastroesophageal reflux disease 8. Lumbar stenosis 9. Asthma 10. Psoriasis 11. Bilateral knee replacements 12. Cardiac stents 13. Hysterectomy 14. Sigmoid resection and colostomy followed by the reversal of colostomy and subsequent bowel resection 15. Ventral hernia repair ALLERGIES PENICILLIN, ERYTHROMYCIN, METFORMIN, MORPHINE, SULFA, IODINE, MERCURY. THE PATIENT IS ALSO ALLERGIC TO SEAFOOD, MOLDS AND EGGS. ANTIBIOTICS: Vancomycin. Zosyn. OBJECTIVE: Vital Signs Date Time Temp Pulse Resp B/P Pulse Ox O2 Delivery O2 Flow Rate FiO2 10/31/16 15:49 97.7 72 22 148/65 94 10/31/16 11:57 98.3 75 22 172/69 95 10/31/16 11:37 96 Nasal Cannula 3.00 10/31/16 08:16 97 Venturi Mask 35 10/31/16 08:00 98.2 75 20 194/78 97 10/31/16 04:00 97.7 72 20 183/78 97 10/31/16 02:03 97 Venturi Mask 35 10/31/16 00:39 20 10/31/16 00:00 97.9 73 20 166/69 95 10/30/16 20:21 22 10/30/16 20:00 99.9 88 20 148/65 97 10/30/16 16:43 96 Venturi Mask 6.00 50 10/30/16 10/30/16 10/31/16 15:00 23:00 07:00 Intake Total 480 ml 120 ml 120 ml Balance 480 ml 120 ml 120 ml Intake Oral 480 ml 120 ml 120 ml # Voids 6 5 1 # Bowel Movements 0 0 0 Laboratory Tests Test 10/30/16 05:58 White Blood Count 8.9 TH/MM3 Red Blood Count 3.84 MIL/MM3 Hemoglobin 9.9 GM/DL Hematocrit 31.3 % Mean Corpuscular Volume 81.6 FL Mean Corpuscular Hemoglobin 25.8 PG Mean Corpuscular Hemoglobin 31.6 % Concent Red Cell Distribution Width 16.5 % Platelet Count 296 TH/MM3 Mean Platelet Volume 7.9 FL Laboratory Tests Test 10/30/16 05:58 Sodium Level 136 MEQ/L Potassium Level 3.4 MEQ/L Chloride Level 99 MEQ/L Carbon Dioxide Level 28.8 MEQ/L Anion Gap 8 MEQ/L Blood Urea Nitrogen 7 MG/DL Creatinine 0.79 MG/DL Estimat Glomerular Filtration 71 ML/MIN Rate Random Glucose 159 MG/DL Calcium Level 8.4 MG/DL Microbiology Date/Time Procedure Status Source Growth 10/29/16 12:15 Gram Stain - Final Complete Sputum Expectorated Sputum 10/29/16 12:15 Sputum Culture - Final Complete Sputum Expectorated Sputum HEAVY GROWTH NORMAL RESPIRATORY YOLANDA IMAGING: Lung Scan- Nuclear Medicine 10/31/16 1019 Signed Impressions: Service Date/Time: Monday, October 31, 2016 10:10 - CONCLUSION: Low probability scan for pulmonary embolism. Dre Laguerre MD Chest X-Ray 10/27/16719 Signed Impressions: Service Date/Time: October 07:34 - CONCLUSION: No acute cardiopulmonary abnormality is identified. Dre Gandhi MD Abdomen/Pelvis CT 10/27/16719 Signed Impressions: Service Date/Time: October 08:15 - CONCLUSION: 1. No acute finding is identified within the abdomen or pelvis to explain the clinical symptoms. Overall, there has been no significant change since the prior study. 2. There is a right ovarian cystic lesion measuring 3.1 cm. It appears simple on this noncontrast examination. This is an abnormal finding for a postmenopausal patient but this lesion has remained present and not significantly changed in size since August 2013. 3. Stable small anterior abdominal wall hernia containing a portion of a small bowel segment. There are no signs of inflammation or bowel wall thickening. 4. Stable nonacute findings include hepatomegaly with steatosis, moderate size hiatal hernia, 15 mm right adrenal gland adenoma, and severe atherosclerotic disease. Dre Gandhi MD Lumbar Puncture Fluoroscopy 10/27/16 0000 Signed Impressions: Service Date/Time: October 14:03 - CONCLUSION: Uncomplicated fluoroscopically guided lumbar puncture. Ernie Auguste MD PHYSICAL EXAMINATION GENERAL: No acute distress. HEENT: No icterus. No conjunctival erythema. Oropharynx, dry mucosa. No visible lesions. NECK: Supple without adenopathy. LUNGS: Bilateral rhonchi. HEART: Regular S1-S2. No audible murmurs. ABDOMEN: Bowel sounds diminished, soft, Diffuse tenderness. EXTREMITIES: No clubbing, cyanosis or edema. SKIN: No rash. Dry and warm. NEUROLOGIC: Non focal. PSYCHIATRIC: The patient is calm and cooperative. IMPRESSION 1. Fever and leukocytosis in patient with general with diffuse joint aches and joint stiffness. Blood cultures pending, CSF culture pending. However CSF studies do not reflect meningitis. 2. FUO. Probable noninfectious etiology. Possibly related to the patient's arthritis. She does have rheumatoid arthritis and it is unclear whether this could be a flare-up of her underlying rheumatoid arthritis. 3. Given the elevated temperature and elevated white blood cell count, infection is a possibility and probably a viral infection with a viral syndrome is possible as well. 4. Probable pneumonia. She is improving. RECOMMENDATIONS 1. Send another sputum for culture. 2. Continue vancomycin. 3. Continue Levaquin. 4. Follow Lyme's antibody serology. Hunter Hawley MD October 31, 2016 16:09
[2016-10-31] MEDS ORDERED: PHARMACY ORDERED LAB ONE (17:45)
[2016-10-31] MEDS: ONDANSETRON HCL 4 MG/2 ML VIAL IV PUSH PRN (19:53)
[2016-10-31] MEDS ORDERED: RESP: BUDESONIDE 0.5 MG/2 ML NEB NEB SCH (20:00)
[2016-10-31] MEDS: RESP: IPRATROPIUM 0.5 MG/2.5 ML NEB NEB SCH (20:59)
[2016-10-31] MEDS: ACETAMINOPHEN/HYDROcodone 325 MG/5 MG TAB PO PRN (22:26)
[2016-10-31] MEDS: ZOLPIDEM TARTRATE 5 MG TAB PO PRN (22:27)
[2016-10-31] MEDS: SODIUM CHLORIDE 0.9% FLUSH 10 ML FLUSH IV FLUSH SCH (22:28)
[2016-10-31] MEDS: SODIUM CHLORIDE 0.9% FLUSH 10 ML FLUSH IV FLUSH PRN (23:22)
[2016-11-01] VITALS (11 sets, daily range): BP systolic 134–192; BP diastolic 69–80; PULSE 63–86; RESP 18–20; TEMP 97.4–98.5; O2SAT 92–98
[2016-11-01] MEDS: RESP: IPRATROPIUM 0.5 MG/2.5 ML NEB NEB SCH ×7 (00:17→23:40)
[2016-11-01] MEDS: SODIUM CHLORIDE 0.9% FLUSH 10 ML FLUSH IV FLUSH PRN (05:34)
[2016-11-01] MEDS ORDERED: VANCOMYCIN INJ 1,350 MG in SODIUM CHLORID 0.9% 500 ML INJ 500 ML IV SCH (06:00)
[2016-11-01] MEDS: LEVOTHYROXINE SODIUM 125 MCG TAB PO SCH (06:27)
[2016-11-01] MEDS: INSULIN ASPART SUPPLEMENTAL SCALE SQ SCH ×4 (06:30→21:57)
[2016-11-01] MEDS: BUDESONIDE-FORMOTEROL 160/4.5 MCG INHALER INH SCH ×2 (09:00→21:55)
[2016-11-01] MEDS: SODIUM CHLORIDE 0.9% FLUSH 10 ML FLUSH IV FLUSH SCH ×2 (09:00→21:00)
[2016-11-01] MEDS: ALPRAZolam 0.25 MG TAB PO PRN ×2 (09:33→21:57)
[2016-11-01] MEDS: ACETAMINOPHEN/HYDROcodone 325 MG/5 MG TAB PO PRN (09:33)
[2016-11-01] MEDS: CITALOPRAM HYDROBROMIDE 20 MG TAB PO SCH (09:34)
[2016-11-01] MEDS: LISINOPRIL 20 MG TAB PO SCH ×2 (09:36→21:56)
[2016-11-01] MEDS: ASPIRIN 81 MG CHEW TAB CHEW SCH (09:37)
[2016-11-01] MEDS: EZETIMIBE 10 MG TAB PO SCH (09:37)
[2016-11-01] MEDS: guaiFENesin E.R. 600 MG TAB PO SCH ×2 (09:37→21:56)
[2016-11-01] MEDS: METOPROLOL TARTRATE 25 MG TAB PO SCH ×2 (09:40→21:55)
[2016-11-01] MEDS: HYDROXYCHLOROQUINE SULFATE 200 MG TAB PO SCH (09:40)
[2016-11-01] MEDS: hydrALAZINE HCL 25 MG TAB PO SCH ×2 (09:41→12:54)
[2016-11-01] MEDS: DOCUSATE SODIUM 100 MG CAP PO SCH ×2 (09:41→21:55)
[2016-11-01] MEDS: INSULIN DETEMIR 100 UNITS/ML VIAL SQ SCH ×2 (09:42→21:57)
[2016-11-01] MEDS: ENOXAPARIN SODIUM 40 MG/0.4 ML SYRINGE SQ SCH (09:42)
[2016-11-01] MEDS: LEVOFLOXACIN 750 MG TAB PO SCH (12:54)
[2016-11-01] MEDS: HYDROmorphone HCL PF 1 MG/ML VIAL IV PUSH PRN ×2 (15:20→21:50)
--- NOTE | 2016-11-01 16:06 | HHI.IDPN ---
Note Infectious Disease Note Patient is tearful. Complaining of severe neck pain with pins and needles radiating to her arms and 4th and 5th fingers. Concerden that her is alone at home and want's to be able to help him. Sputum has immature growth. Notes that joint aches are severe today. Able to raise legs without difficulty. Afebrile. No chills. Alert. Sputum culture has immature growth. CSF culture no growth. Lyme DNA not detected in CSF. Rheumatoid screen negative. Admitted with weakness, fatigue, cough, fever, leukocytosis. PAST MEDICAL HISTORY 1. Rheumatoid arthritis 2. Fibromyalgia 3. Hypertension 4. Diabetes mellitus 5. Hypothyroidism 6. Hyperlipidemia 7. Gastroesophageal reflux disease 8. Lumbar stenosis 9. Asthma 10. Psoriasis 11. Bilateral knee replacements 12. Cardiac stents 13. Hysterectomy 14. Sigmoid resection and colostomy followed by the reversal of colostomy and subsequent bowel resection 15. Ventral hernia repair ALLERGIES PENICILLIN, ERYTHROMYCIN, METFORMIN, MORPHINE, SULFA, IODINE, MERCURY. THE PATIENT IS ALSO ALLERGIC TO SEAFOOD, MOLDS AND EGGS. ANTIBIOTICS: Vancomycin. Levaquin. OBJECTIVE: Vital Signs Date Time Temp Pulse Resp B/P Pulse Ox O2 Delivery O2 Flow Rate FiO2 11/01/16 12:08 98.5 69 20 183/76 98 11/01/16 08:55 98 Nasal Cannula 4.00 11/01/16 08:00 97.8 63 20 189/80 97 11/01/16 06:52 98.5 68 18 192/77 98 11/01/16 04:25 98 Nasal Cannula 3.00 11/01/16 00:19 98 Nasal Cannula 3.00 11/01/16 00:00 98.0 64 18 149/69 96 10/31/16 20:59 95 Nasal Cannula 3.00 10/31/16 19:30 98.1 76 20 181/72 96 10/31/16 10/31/16 11/01/16 15:00 23:00 07:00 Intake Total 480 ml Balance 480 ml Intake Oral 480 ml # Voids 6 1 # Bowel Movements 0 Microbiology Date/Time Procedure Status Source Growth 10/31/16 21:33 Gram Stain - Final Resulted Sputum Expectorated Sputum 10/31/16 21:33 Sputum Culture - Preliminary Resulted Sputum Expectorated Sputum IMMATURE GROWTH - REINCUBATE IMAGING: Lung Scan- Nuclear Medicine 10/31/16 1019 Signed Impressions: Service Date/Time: Monday, October 31, 2016 10:10 - CONCLUSION: Low probability scan for pulmonary embolism. Dre Laguerre MD Chest X-Ray 10/27/16719 Signed Impressions: Service Date/Time: October 07:34 - CONCLUSION: No acute cardiopulmonary abnormality is identified. Dre Gandhi MD Abdomen/Pelvis CT 10/27/16719 Signed Impressions: Service Date/Time: October 08:15 - CONCLUSION: 1. No acute finding is identified within the abdomen or pelvis to explain the clinical symptoms. Overall, there has been no significant change since the prior study. 2. There is a right ovarian cystic lesion measuring 3.1 cm. It appears simple on this noncontrast examination. This is an abnormal finding for a postmenopausal patient but this lesion has remained present and not significantly changed in size since August 2013. 3. Stable small anterior abdominal wall hernia containing a portion of a small bowel segment. There are no signs of inflammation or bowel wall thickening. 4. Stable nonacute findings include hepatomegaly with steatosis, moderate size hiatal hernia, 15 mm right adrenal gland adenoma, and severe atherosclerotic disease. Dre Gandhi MD Lumbar Puncture Fluoroscopy 10/27/16 0000 Signed Impressions: Service Date/Time: October 14:03 - CONCLUSION: Uncomplicated fluoroscopically guided lumbar puncture. rEnie Auguste MD PHYSICAL EXAMINATION GENERAL: No acute distress. HEENT: No icterus. No conjunctival erythema. Oropharynx, dry mucosa. No visible lesions. NECK: Supple without adenopathy. LUNGS: Bilateral rhonchi with mild wheezing. HEART: Regular S1-S2. No audible murmurs. ABDOMEN: Bowel sounds diminished, soft, Diffuse tenderness. EXTREMITIES: No clubbing, cyanosis or edema. SKIN: No rash. Dry and warm. NEUROLOGIC: Non focal. decreased strength at the upper extremities. PSYCHIATRIC: The patient is tearful, calm and cooperative. IMPRESSION 1. Fever and leukocytosis in patient with diffuse joint aches and joint stiffness. CSF studies do not reflect meningitis. 2. FUO. Probable noninfectious etiology. Possibly related to the patient's arthritis. She does have rheumatoid arthritis and it is unclear whether this could be a flare-up of her underlying rheumatoid arthritis. 3. Given the elevated temperature and elevated white blood cell count, infection is a possibility and probably a viral infection with a viral syndrome is possible as well. 4. Probable pneumonia. 5. Neck and joint pain. ? neuropathy. RECOMMENDATIONS 1. Monitor sputum for culture. 2. Continue vancomycin. 3. Continue Levaquin. 4. Obtain mycoplasma serology if sputum culture is negative. 5. Consider neurology consult vs scan evaluation of the neck. Hunter Hawley MD November 01, 2016 16:06
--- NOTE | 2016-11-01 16:37 | HHI.PR ---
Subjective Remarks This is a pleasant 75 y/o Female with DM II, CAD, rheumatoid arthritis, COPD, who came to ER with fever, body aches, Shortness of breath seen by ID specialist with diagnosis of Fever and Leukocytosis following blood cultures, CSF culture pending, but do not reflect meningitis, probable fever non infectious etiology, probable viral syndrome, recommended Neurology Consult LE weakness, continue Vancomycin, Continue Levaquin, Follow Lyme antibody serology. today seen and discussed with nurse Miss Lopez, she has respiratory insufficiency probable related to IV fluids overload, given Lasix, and Bronchodilator, Mucolytic and Incentive spirometry. 11/01: Seen in her bedroom early in the morning her Mr. Arsen Alford by her side, states is feeling tired, discussed with nurse Brenda Art no complaint, but later the same day the patient complaint to doctor Dontfraid about neck pain and radiated to both arms will get MRI of the Cervical spine, Afebrile for the last 48 hours. no nausea, vomit or diarrhea. the patient refused MRI of the Cervical spine, also has Uncontrolled Hypertension increased dosages of Hydralazine and following. Objective Vital Signs Date Time Temp Pulse Resp B/P Pulse Ox O2 Delivery O2 Flow Rate FiO2 11/01/16 15:59 98.1 72 20 170/69 96 11/01/16 12:08 98.5 69 20 183/76 98 11/01/16 08:55 98 Nasal Cannula 4.00 11/01/16 08:00 97.8 63 20 189/80 97 11/01/16 06:52 98.5 68 18 192/77 98 11/01/16 04:25 98 Nasal Cannula 3.00 11/01/16 00:19 98 Nasal Cannula 3.00 11/01/16 00:00 98.0 64 18 149/69 96 10/31/16 20:59 95 Nasal Cannula 3.00 10/31/16 19:30 98.1 76 20 181/72 96 I/O 10/31/16 10/31/16 10/31/16 11/01/16 11/01/16 11/01/16 07:00 15:00 23:00 07:00 15:00 23:00 Intake Total 120 ml 480 ml 240 ml Balance 120 ml 480 ml 240 ml Intake Oral 120 ml 480 ml 240 ml # Voids 1 6 1 5 # Bowel Movements 0 0 1 Result Diagram: 10/30/16 0558 10/30/16 0558 Imaging Last Impressions Lung Scan-VQ Nuclear Medicine 10/31/16 1019 Signed Impressions: Service Date/Time: Monday, October 31, 2016 10:10 - CONCLUSION: Low probability scan for pulmonary embolism. Dre Laguerre MD Chest X-Ray 10/29/16 0000 Signed Impressions: Service Date/Time: Saturday, October 29, 2016 12:35 - CONCLUSION: No acute disease. Hector An MD Abdomen/Pelvis CT 10/27/16 0720 Signed Impressions: Service Date/Time: October 08:15 - CONCLUSION: 1. No acute finding is identified within the abdomen or pelvis to explain the clinical symptoms. Overall, there has been no significant change since the prior study. 2. There is a right ovarian cystic lesion measuring 3.1 cm. It appears simple on this noncontrast examination. This is an abnormal finding for a postmenopausal patient but this lesion has remained present and not significantly changed in size since August 2013. 3. Stable small anterior abdominal wall hernia containing a portion of a small bowel segment. There are no signs of inflammation or bowel wall thickening. 4. Stable nonacute findings include hepatomegaly with steatosis, moderate size hiatal hernia, 15 mm right adrenal gland adenoma, and severe atherosclerotic disease. Dre Gandhi MD Lumbar Puncture Fluoroscopy 10/27/16 0000 Signed Impressions: Service Date/Time: October 14:03 - CONCLUSION: Uncomplicated fluoroscopically guided lumbar puncture. Ernie Auguste MD Procedures No procedures performed. Other Results Laboratory Tests Test 10/27/16 10/28/16 10/29/16 10/30/16 14:02 06:19 11:45 05:58 Herpes Simplex Virus I DNA Negative (PCR) Herpes Simplex Virus II DNA Negative (PCR) CSF Lyme Disease DNA (PCR) NOT DETECTED Rheumatoid Factor Screen NEGATIVE Rheumatoid Factor Titer IU/ML Anti-Nuclear Antibody Screen NEG Neutrophils (%) (Auto) 76.1 % Lymphocytes (%) (Auto) 6.9 % Monocytes (%) (Auto) 13.5 % Eosinophils (%) (Auto) 3.2 % Basophils (%) (Auto) 0.3 % Neutrophils # (Auto) 6.6 TH/MM3 Lymphocytes # (Auto) 0.6 TH/MM3 Monocytes # (Auto) 1.2 TH/MM3 Eosinophils # (Auto) 0.3 TH/MM3 Basophils # (Auto) 0.0 TH/MM3 CBC Comment DIFF FINAL Differential Comment White Blood Count 8.9 TH/MM3 Red Blood Count 3.84 MIL/MM3 Hemoglobin 9.9 GM/DL Hematocrit 31.3 % Mean Corpuscular Volume 81.6 FL Mean Corpuscular Hemoglobin 25.8 PG Mean Corpuscular Hemoglobin 31.6 % Concent Red Cell Distribution Width 16.5 % Platelet Count 296 TH/MM3 Mean Platelet Volume 7.9 FL Sodium Level 136 MEQ/L Potassium Level 3.4 MEQ/L Chloride Level 99 MEQ/L Carbon Dioxide Level 28.8 MEQ/L Anion Gap 8 MEQ/L Blood Urea Nitrogen 7 MG/DL Creatinine 0.79 MG/DL Estimat Glomerular Filtration 71 ML/MIN Rate Random Glucose 159 MG/DL Calcium Level 8.4 MG/DL Test 10/30/16 10/31/16 13:47 17:39 D-Dimer Quantitative (PE/DVT) 0.91 MG/L FEU Vancomycin Level Trough 17.0 MCG/ML Objective Remarks GENERAL: Obesity with mild to moderate respiratory distress. SKIN: Warm and dry. HEAD: Atraumatic. Normocephalic. EYES: Pupils equal and round. No scleral icterus. No injection or drainage. ENT: No nasal bleeding or discharge. Mucous membranes pink and moist. NECK: Trachea midline. No JVD. CARDIOVASCULAR: Regular rate and rhythm. RESPIRATORY: Decreased breath sounds bilateral, Mild expiratory wheezing, no crackles. GASTROINTESTINAL: Abdomen soft, non-tender, nondistended. MUSCULOSKELETAL: Extremities without clubbing, cyanosis, edema 2+ NEUROLOGICAL: Awake and alert. No focal deficits. PSYCHIATRIC: Appropriate mood and affect. Medications and IVs Current Medications Medications (Trade) Dose Ordered Sig/Amador Route Start Time Stop Time Status Last Admin (NS Flush) 2 ml UNSCH PRN IV FLUSH 10/27/16 10:45 11/01/16 05:34 (NS Flush) 2 ml BID IV FLUSH 10/27/16 21:00 11/01/16 09:00 (Tylenol) 650 mg Q4H PRN PO 10/27/16 10:45 10/29/16 21:33 (Dulcolax Supp) 10 mg DAILY PRN RECTAL 10/27/16 10:45 Enoxaparin Sodium 40 mg 40 mg Q24H SQ 10/27/16 11:00 11/01/16 09:42 (Vancomycin Consult Pharmacy) 0 ml @ 0 mls/hr UNSCH OTHER 10/27/16 11:15 (Xanax) 0.25 mg Q12HR PRN PO 10/27/16 11:30 11/01/16 09:33 (Aspirin Chew) 81 mg DAILY CHEW 10/28/16 09:00 11/01/16 09:37 (Symbicort 160-4.5 Inh) 1 puff Q12HR INH 10/27/16 21:00 11/01/16 09:00 (CeleXA) 40 mg DAILY PO 10/28/16 09:00 11/01/16 09:34 (Zetia) 10 mg DAILY PO 10/28/16 09:00 11/01/16 09:37 (Greenleaf 5-325 Mg) 1 tab Q6H PRN PO 10/27/16 11:30 11/01/16 09:33 (Plaquenil) 200 mg DAILY PO 10/28/16 09:00 11/01/16 09:40 (Synthroid) 125 mcg DAILY@0600 PO 10/28/16 06:00 11/01/16 06:27 (Lopressor) 25 mg BID PO 10/27/16 21:00 11/01/16 09:40 (Colace) 100 mg BID PO 10/27/16 21:00 11/01/16 09:41 (Prinivil) 40 mg BID PO 10/27/16 11:45 11/01/16 09:36 (D50w (Vial) Inj) 25 ml UNSCH PRN IV PUSH 10/27/16 11:30 (Glucagon Inj) 1 mg UNSCH PRN OTHER 10/27/16 11:30 (Levemir Inj) 25 units BID SQ 10/27/16 21:00 11/01/16 09:42 (Norvasc) 10 mg DAILY PO 10/28/16 09:00 11/01/16 09:41 (Dilaudid Pf Inj) 1 mg Q4H PRN IV PUSH 10/27/16 15:15 11/01/16 15:20 (Ambien) 5 mg HS PRN PO 10/28/16 15:30 10/31/16 22:27 (Zofran Inj) 4 mg Q6H PRN IV PUSH 10/28/16 15:30 10/31/16 19:53 (Mucinex Er) 600 mg BID PO 10/30/16 10:00 11/01/16 09:37 (Levaquin) 750 mg DAILY@12 PO 10/31/16 12:00 11/01/16 12:54 (Benadryl) 25 mg Q6H PRN PO 10/31/16 14:00 Miscellaneous Information SPECIFIC LAB TO BE DRAWN:VANCO TROUGH DATE TO BE DR... ONCE ONCE .XX 11/03/16 05:45 11/03/16 05:46 (Vancomycin Inj/ NS 500 ml Inj) 515 ml @ 250 mls/hr Q12H IV 11/01/16 18:00 (Apresoline) 25 mg ONCE ONCE PO 11/01/16 17:00 11/01/16 17:01 (Apresoline) 50 mg TID PO 11/01/16 18:00 A/P Assessment and Plan 1. Fever Of unknown Origin she is been having fever for the last six months. afebrile. ID specialist following recommended to continue antibiotics, broad spectrum and follow, fever, cultures, probable viral etiology, Levaquin and Vancomycin. follow CSF Leukocytosis improved. recommended to continue Vancomycin and Levaquin and Lyme serology non reactive for acute infection. 2. Rheumatoid Arthritis recommended on this admission to follow digital publishing specialist as outpatient. 3. Respiratory Insufficiency CXR within normal limits, continue Bronchodilators , Mucolytic and Incentive spirometry. probable also COPD exacerbation, started management and following, D Dimers may need another V/Q scan again. 4. DM II continue Insulin management. Diabetic management. 5. Hypertension uncontrolled increased Hydralazine and following. 6. Hypothyroidism continue Hormonal replacement 7. Obesity strongly recommended diet and exercise as outpatient. Discussed in the room with patient and her Mr. Arsen Alford all questions answered to the best of my abilities nurse Mr Stafford also discussed patient's care. DVT prophylaxis -Lovenox. Discharge Planning Patient had multiple admissions in the past 6 months due to fever of unknown origin. Patient will require continual hospitalization. If infectious work up is negative she will need to see Infrastructure Administrator as outpatient. Ezekiel Brink MD November 01, 2016 16:37
[2016-11-01] MEDS ORDERED: hydrALAZINE HCL 25 MG TAB PO ONE (17:00)
[2016-11-01] MEDS: hydrALAZINE HCL 50 MG TAB PO SCH (18:07)
[2016-11-01] MEDS: VANCOMYCIN INJ 1,500 MG in SODIUM CHLORID 0.9% 500 ML INJ 500 ML IV SCH (18:11)
[2016-11-01] MEDS ORDERED: LORazepam 2 MG/ML VIAL IV SCH (19:15)
[2016-11-01] MEDS: ZOLPIDEM TARTRATE 5 MG TAB PO PRN (21:57)
[2016-11-01] MEDS: ONDANSETRON HCL 4 MG/2 ML VIAL IV PUSH PRN (21:58)
[2016-11-01 23:56] LABS: LYME DISEASE 18KD IGG BAND REACTIVE (()); LYME DISEASE 23 IGG BAND NON-REACTIVE (()); LYME DISEASE 23KD IGM BAND NON-REACTIVE (()); LYME DISEASE 28KD IGG BAND NON-REACTIVE (()); LYME DISEASE 30KD IGG BAND NON-REACTIVE (()); LYME DISEASE 39 KD IGG BAND NON-REACTIVE (()); LYME DISEASE 39KD IGM BAND NON-REACTIVE (()); LYME DISEASE 41KD IGG BAND NON-REACTIVE (()); LYME DISEASE 41KD IGM BAND NON-REACTIVE (()); LYME DISEASE 45KD IGG BAND NON-REACTIVE (()); LYME DISEASE 58KD IGG BAND NON-REACTIVE (()); LYME DISEASE 66KD IGG BAND NON-REACTIVE (()); LYME DISEASE 93KD IGG BAND NON-REACTIVE (()); LYME DISEASE IGM WB NEGATIVE (())
[2016-11-02] VITALS (10 sets, daily range): BP systolic 114–196; BP diastolic 54–79; PULSE 66–74; RESP 17–20; TEMP 98–99.4; O2SAT 94–97
[2016-11-02] MEDS: RESP: IPRATROPIUM 0.5 MG/2.5 ML NEB NEB SCH ×5 (03:51→20:05)
[2016-11-02] MEDS: diphenhydrAMINE HCL 25 MG CAP PO PRN ×2 (05:03→22:11)
[2016-11-02] MEDS: VANCOMYCIN INJ 1,500 MG in SODIUM CHLORID 0.9% 500 ML INJ 500 ML IV SCH (05:04)
[2016-11-02] MEDS: LEVOTHYROXINE SODIUM 125 MCG TAB PO SCH (05:04)
[2016-11-02] MEDS: INSULIN ASPART SUPPLEMENTAL SCALE SQ SCH ×4 (07:00→21:00)
[2016-11-02] MEDS: BUDESONIDE-FORMOTEROL 160/4.5 MCG INHALER INH SCH ×2 (09:17→21:00)
[2016-11-02] MEDS: CITALOPRAM HYDROBROMIDE 20 MG TAB PO SCH (09:17)
[2016-11-02] MEDS: DOCUSATE SODIUM 100 MG CAP PO SCH ×2 (09:17→22:11)
[2016-11-02] MEDS: HYDROXYCHLOROQUINE SULFATE 200 MG TAB PO SCH (09:18)
[2016-11-02] MEDS: ASPIRIN 81 MG CHEW TAB CHEW SCH (09:18)
[2016-11-02] MEDS: LISINOPRIL 20 MG TAB PO SCH ×2 (09:19→22:11)
[2016-11-02] MEDS: hydrALAZINE HCL 50 MG TAB PO SCH ×3 (09:19→16:26)
[2016-11-02] MEDS: METOPROLOL TARTRATE 25 MG TAB PO SCH ×2 (09:19→22:12)
[2016-11-02] MEDS: SODIUM CHLORIDE 0.9% FLUSH 10 ML FLUSH IV FLUSH SCH ×2 (09:19→21:00)
[2016-11-02] MEDS: guaiFENesin E.R. 600 MG TAB PO SCH ×2 (09:19→22:11)
[2016-11-02] MEDS: EZETIMIBE 10 MG TAB PO SCH (09:19)
[2016-11-02] MEDS: INSULIN DETEMIR 100 UNITS/ML VIAL SQ SCH ×2 (09:20→21:00)
[2016-11-02] MEDS: ALPRAZolam 0.25 MG TAB PO PRN (09:33)
[2016-11-02] MEDS: LEVOFLOXACIN 750 MG TAB PO SCH (11:00)
[2016-11-02] MEDS: ENOXAPARIN SODIUM 40 MG/0.4 ML SYRINGE SQ SCH (11:01)
[2016-11-02] MEDS: HYDROmorphone HCL PF 1 MG/ML VIAL IV PUSH PRN (11:09)
[2016-11-02 11:26] LABS: BICARBONATE 32.8 MEQ/L (21.0-32.0); POTASSIUM 3.1 MEQ/L (3.5-5.1)
--- NOTE | 2016-11-02 15:03 | HHI.IDPN ---
Note Infectious Disease Note Patient feels very tired. Not wanting to get up from bed. Patient says neck pain is better with pain med. Refused MRI of the neck. Reports that she was offered bilateral shoulder surgery years ago and refused. She had shoulder pains at that time. Sputum has normal hugo with some beta strep colonies. Still has cough but no sputum production. Afebrile. Denies chills. CSF culture no growth. Lyme DNA not detected in CSF. Lyme antibody negative. Rheumatoid screen negative. Admitted with weakness, fatigue, cough, fever, leukocytosis. PAST MEDICAL HISTORY 1. Rheumatoid arthritis 2. Fibromyalgia 3. Hypertension 4. Diabetes mellitus 5. Hypothyroidism 6. Hyperlipidemia 7. Gastroesophageal reflux disease 8. Lumbar stenosis 9. Asthma 10. Psoriasis 11. Bilateral knee replacements 12. Cardiac stents 13. Hysterectomy 14. Sigmoid resection and colostomy followed by the reversal of colostomy and subsequent bowel resection 15. Ventral hernia repair ALLERGIES PENICILLIN, ERYTHROMYCIN, METFORMIN, MORPHINE, SULFA, IODINE, MERCURY. THE PATIENT IS ALSO ALLERGIC TO SEAFOOD, MOLDS AND EGGS. ANTIBIOTICS: Vancomycin. Levaquin. OBJECTIVE: Vital Signs Date Time Temp Pulse Resp B/P Pulse Ox O2 Delivery O2 Flow Rate FiO2 11/02/16 14:15 67 114/54 11/02/16 12:06 18 11/02/16 12:01 98.8 73 20 183/74 94 11/02/16 08:15 96 Nasal Cannula 3.00 11/02/16 08:00 98.0 68 20 196/65 97 11/02/16 06:31 170/74 11/02/16 05:21 98.0 74 17 188/79 96 11/02/16 00:55 98.0 74 18 146/66 95 11/01/16 20:30 70 11/01/16 20:28 98 Nasal Cannula 3.00 11/01/16 20:25 97.4 86 18 134/80 95 11/01/16 15:59 98.1 72 20 170/69 96 11/01/16 11/01/16 11/02/16 15:00 23:00 07:00 Intake Total 240 ml 120 ml 120 ml Output Total 3 ml Balance 240 ml 117 ml 120 ml Intake Oral 240 ml 120 ml 120 ml Output Urine Total 3 ml # Voids 5 1 3 # Bowel Movements 1 Laboratory Tests Test 11/02/16 10:10 Sodium Level 139 MEQ/L Potassium Level 3.1 MEQ/L Chloride Level 100 MEQ/L Carbon Dioxide Level 32.8 MEQ/L Anion Gap 6 MEQ/L Blood Urea Nitrogen 10 MG/DL Creatinine 0.75 MG/DL Estimat Glomerular Filtration 75 ML/MIN Rate Random Glucose 142 MG/DL Calcium Level 8.1 MG/DL Phosphorus Level 3.1 MG/DL Magnesium Level 2.0 MG/DL IMAGING: Lung Scan-V Nuclear Medicine 10/31/16 1019 Signed Impressions: Service Date/Time: Monday, October 31, 2016 10:10 - CONCLUSION: Low probability scan for pulmonary embolism. Dre Laguerre MD Chest X-Ray 10/27/16719 Signed Impressions: Service Date/Time: October 07:34 - CONCLUSION: No acute cardiopulmonary abnormality is identified. Dre Gandhi MD Abdomen/Pelvis CT 10/27/16719 Signed Impressions: Service Date/Time: October 08:15 - CONCLUSION: 1. No acute finding is identified within the abdomen or pelvis to explain the clinical symptoms. Overall, there has been no significant change since the prior study. 2. There is a right ovarian cystic lesion measuring 3.1 cm. It appears simple on this noncontrast examination. This is an abnormal finding for a postmenopausal patient but this lesion has remained present and not significantly changed in size since August 2013. 3. Stable small anterior abdominal wall hernia containing a portion of a small bowel segment. There are no signs of inflammation or bowel wall thickening. 4. Stable nonacute findings include hepatomegaly with steatosis, moderate size hiatal hernia, 15 mm right adrenal gland adenoma, and severe atherosclerotic disease. Dre Gandhi MD Lumbar Puncture Fluoroscopy 10/27/16 0000 Signed Impressions: Service Date/Time: October 14:03 - CONCLUSION: Uncomplicated fluoroscopically guided lumbar puncture. Ernie Auguste MD PHYSICAL EXAMINATION GENERAL: No acute distress. HEENT: No icterus. No conjunctival erythema. Oropharynx, dry mucosa. No visible lesions. NECK: Supple without adenopathy. LUNGS: Bilateral basilar rhonchi. . HEART: Regular S1-S2. No audible murmurs. ABDOMEN: Bowel sounds diminished, soft, Diffuse tenderness. EXTREMITIES: No clubbing, cyanosis or edema. SKIN: No rash. Dry and warm. NEUROLOGIC: Non focal. decreased strength at the upper extremities. PSYCHIATRIC: Calm and cooperative. IMPRESSION 1. Fever and leukocytosis in patient with diffuse joint aches and joint stiffness. CSF studies do not reflect meningitis. 2. FUO. Probable noninfectious etiology. Possibly related to the patient's arthritis. She does have rheumatoid arthritis and it is unclear whether this could be a flare-up of her underlying rheumatoid arthritis. 3. Given the elevated temperature and elevated white blood cell count, infection is a possibility and probably a viral infection with a viral syndrome is possible as well. 4. Probable pneumonia. Cultures are negative. 5. Neck and joint pain. ? neuropathy. 6. Chronic tiredness. ? fibromyalgia. RECOMMENDATIONS 1. Stop vancomycin. 2. Stop Levaquin. 3. Trial of prednisone. 4. Monitor clinical status. Hunter Hawley MD November 02, 2016 15:03
--- NOTE | 2016-11-02 15:33 | HHI.PR ---
Subjective Remarks This is a pleasant 75 y/o Female with DM II, CAD, rheumatoid arthritis, COPD, who came to ER with fever, body aches, Shortness of breath seen by ID specialist with diagnosis of Fever and Leukocytosis following blood cultures, CSF culture pending, but do not reflect meningitis, probable fever non infectious etiology, probable viral syndrome, recommended Neurology Consult LE weakness, continue Vancomycin, Continue Levaquin, Follow Lyme antibody serology. today seen and discussed with nurse Miss Lopez, she has respiratory insufficiency probable related to IV fluids overload, given Lasix, and Bronchodilator, Mucolytic and Incentive spirometry. 11/01: Seen in her bedroom early in the morning her Mr. Arsen Alford by her side, states is feeling tired, discussed with nurse Brenda Rivera no complaint, but later the same day the patient complaint to doctor Dontfraid about neck pain and radiated to both arms will get MRI of the Cervical spine, Afebrile for the last 48 hours. no nausea, vomit or diarrhea. the patient refused MRI of the Cervical spine, also has Uncontrolled Hypertension increased dosages of Hydralazine and following. 11/02: Discussed with Patient in the room no nausea, vomit or diarrhea, the patient refused MRI, she does not want to continue management states she is tired, discussed with ID specialist Doctor Dontfraid, even negative Rheumatologic tests wants to give Empiric Prednisone 10 mg BID. Objective Vital Signs Date Time Temp Pulse Resp B/P Pulse Ox O2 Delivery O2 Flow Rate FiO2 11/02/16 14:15 67 114/54 11/02/16 12:06 18 11/02/16 12:01 98.8 73 20 183/74 94 11/02/16 08:15 96 Nasal Cannula 3.00 11/02/16 08:00 98.0 68 20 196/65 97 11/02/16 06:31 170/74 11/02/16 05:21 98.0 74 17 188/79 96 11/02/16 00:55 98.0 74 18 146/66 95 11/01/16 20:30 70 11/01/16 20:28 98 Nasal Cannula 3.00 11/01/16 20:25 97.4 86 18 134/80 95 11/01/16 15:59 98.1 72 20 170/69 96 I/O 5/2/17 511/01/16 11/02/16 11/02/16 11/02/16 07:00 15:00 23:00 07:00 15:00 23:00 Intake Total 240 ml 120 ml 120 ml Output Total 3 ml Balance 240 ml 117 ml 120 ml Intake Oral 240 ml 120 ml 120 ml Output Urine Total 3 ml # Voids 1 5 1 3 # Bowel Movements 1 Result Diagram: 10/30/16 0558 11/02/16 1010 Imaging Last Impressions Lung Scan-VQ Nuclear Medicine 10/31/16 1019 Signed Impressions: Service Date/Time: Monday, October 31, 2016 10:10 - CONCLUSION: Low probability scan for pulmonary embolism. Dre Laguerre MD Chest X-Ray 10/29/16 0000 Signed Impressions: Service Date/Time: Saturday, October 29, 2016 12:35 - CONCLUSION: No acute disease. Hector An MD Abdomen/Pelvis CT 10/27/16 0720 Signed Impressions: Service Date/Time: October 08:15 - CONCLUSION: 1. No acute finding is identified within the abdomen or pelvis to explain the clinical symptoms. Overall, there has been no significant change since the prior study. 2. There is a right ovarian cystic lesion measuring 3.1 cm. It appears simple on this noncontrast examination. This is an abnormal finding for a postmenopausal patient but this lesion has remained present and not significantly changed in size since August 2013. 3. Stable small anterior abdominal wall hernia containing a portion of a small bowel segment. There are no signs of inflammation or bowel wall thickening. 4. Stable nonacute findings include hepatomegaly with steatosis, moderate size hiatal hernia, 15 mm right adrenal gland adenoma, and severe atherosclerotic disease. Dre Gandhi MD Lumbar Puncture Fluoroscopy 10/27/16 0000 Signed Impressions: Service Date/Time: October 14:03 - CONCLUSION: Uncomplicated fluoroscopically guided lumbar puncture. Ernie Auguste MD Procedures No procedures performed. Other Results Laboratory Tests Test 10/27/16 10/28/16 10/29/16 10/30/16 14:02 06:19 11:45 05:58 Herpes Simplex Virus I DNA Negative (PCR) Herpes Simplex Virus II DNA Negative (PCR) CSF Lyme Disease DNA (PCR) NOT DETECTED Lyme Disease IgG Ab (Western NEGATIVE Blot) Lyme Disease IgG Ab 18 kDa REACTIVE Band Lyme Disease IgG Ab 23 kDa NON-REACTIVE Band Lyme Disease IgG Ab 28 kDa NON-REACTIVE Band Lyme Disease IgG Ab 30 kDa NON-REACTIVE Band Lyme Disease IgG Ab 39 kDa NON-REACTIVE Band Lyme Disease IgG Ab 41 kDa NON-REACTIVE Band Lyme Disease IgG Ab 45 kDa NON-REACTIVE Band Lyme Disease IgG Ab 58 kDa NON-REACTIVE Band Lyme Disease IgG Ab 66 kDa NON-REACTIVE Band Lyme Disease IgG Ab 93 kDa NON-REACTIVE Band Lyme Disease IgM Ab (Western NEGATIVE Blot) Lyme Disease IgM Ab 23 kDa NON-REACTIVE Band Lyme Disease IgM Ab 39 kDa NON-REACTIVE Band Lyme Disease IgM Ab 41 kDa NON-REACTIVE Band Neutrophils (%) (Auto) 76.1 % Lymphocytes (%) (Auto) 6.9 % Monocytes (%) (Auto) 13.5 % Eosinophils (%) (Auto) 3.2 % Basophils (%) (Auto) 0.3 % Neutrophils # (Auto) 6.6 TH/MM3 Lymphocytes # (Auto) 0.6 TH/MM3 Monocytes # (Auto) 1.2 TH/MM3 Eosinophils # (Auto) 0.3 TH/MM3 Basophils # (Auto) 0.0 TH/MM3 CBC Comment DIFF FINAL Differential Comment White Blood Count 8.9 TH/MM3 Red Blood Count 3.84 MIL/MM3 Hemoglobin 9.9 GM/DL Hematocrit 31.3 % Mean Corpuscular Volume 81.6 FL Mean Corpuscular Hemoglobin 25.8 PG Mean Corpuscular Hemoglobin 31.6 % Concent Red Cell Distribution Width 16.5 % Platelet Count 296 TH/MM3 Mean Platelet Volume 7.9 FL Test 10/30/16 10/31/16 11/02/16 13:47 17:39 10:10 D-Dimer Quantitative (PE/DVT) 0.91 MG/L FEU Vancomycin Level Trough 17.0 MCG/ML Sodium Level 139 MEQ/L Potassium Level 3.1 MEQ/L Chloride Level 100 MEQ/L Carbon Dioxide Level 32.8 MEQ/L Anion Gap 6 MEQ/L Blood Urea Nitrogen 10 MG/DL Creatinine 0.75 MG/DL Estimat Glomerular Filtration 75 ML/MIN Rate Random Glucose 142 MG/DL Calcium Level 8.1 MG/DL Phosphorus Level 3.1 MG/DL Magnesium Level 2.0 MG/DL Objective Remarks GENERAL: Obesity with mild to moderate respiratory distress. SKIN: Warm and dry. HEAD: Atraumatic. Normocephalic. EYES: Pupils equal and round. No scleral icterus. No injection or drainage. ENT: No nasal bleeding or discharge. Mucous membranes pink and moist. NECK: Trachea midline. No JVD. CARDIOVASCULAR: Regular rate and rhythm. RESPIRATORY: Decreased breath sounds bilateral, Mild expiratory wheezing, no crackles. GASTROINTESTINAL: Abdomen soft, non-tender, nondistended. MUSCULOSKELETAL: Extremities without clubbing, cyanosis, edema 2+ NEUROLOGICAL: Awake and alert. No focal deficits. PSYCHIATRIC: Appropriate mood and affect. Medications and IVs Current Medications Medications (Trade) Dose Ordered Sig/Amador Route Start Time Stop Time Status Last Admin (NS Flush) 2 ml UNSCH PRN IV FLUSH 10/27/16 10:45 11/01/16 05:34 (NS Flush) 2 ml BID IV FLUSH 10/27/16 21:00 11/02/16 09:19 (Tylenol) 650 mg Q4H PRN PO 10/27/16 10:45 10/29/16 21:33 (Dulcolax Supp) 10 mg DAILY PRN RECTAL 10/27/16 10:45 (Lovenox Inj) 40 mg Q24H SQ 10/27/16 11:00 11/02/16 11:01 (Xanax) 0.25 mg Q12HR PRN PO 10/27/16 11:30 11/02/16 09:33 (Aspirin Chew) 81 mg DAILY CHEW 10/28/16 09:00 11/02/16 09:18 (Symbicort 160-4.5 Inh) 1 puff Q12HR INH 10/27/16 21:00 11/02/16 09:17 (CeleXA) 40 mg DAILY PO 10/28/16 09:00 11/02/16 09:17 (Zetia) 10 mg DAILY PO 10/28/16 09:00 11/02/16 09:19 ([place] 5-325 Mg) 1 tab Q6H PRN PO 10/27/16 11:30 11/01/16 09:33 (Plaquenil) 200 mg DAILY PO 10/28/16 09:00 11/02/16 09:18 (Synthroid) 125 mcg DAILY@0600 PO 10/28/16 06:00 11/02/16 05:04 (Lopressor) 25 mg BID PO 10/27/16 21:00 11/02/16 09:19 (Colace) 100 mg BID PO 10/27/16 21:00 11/02/16 09:17 (Prinivil) 40 mg BID PO 10/27/16 11:45 11/02/16 09:19 (D50w (Vial) Inj) 25 ml UNSCH PRN IV PUSH 10/27/16 11:30 (Glucagon Inj) 1 mg UNSCH PRN OTHER 10/27/16 11:30 (Levemir Inj) 25 units BID SQ 10/27/16 21:00 11/02/16 09:20 (Norvasc) 10 mg DAILY PO 10/28/16 09:00 11/02/16 09:19 (Dilaudid Pf Inj) 1 mg Q4H PRN IV PUSH 10/27/16 15:15 11/02/16 11:09 (Ambien) 5 mg HS PRN PO 10/28/16 15:30 11/01/16 21:57 (Zofran Inj) 4 mg Q6H PRN IV PUSH 10/28/16 15:30 11/01/16 21:58 (Mucinex Er) 600 mg BID PO 10/30/16 10:00 11/02/16 09:19 (Benadryl) 25 mg Q6H PRN PO 10/31/16 14:00 11/02/16 05:03 (Apresoline) 50 mg TID PO 11/01/16 18:00 11/02/16 11:01 (Deltasone) 20 mg BID PO 11/02/16 21:00 A/P Assessment and Plan 1. Fever Of unknown Origin she is been having fever for the last six months. afebrile. ID specialist following recommended to continue antibiotics, broad spectrum and follow, fever, cultures, probable viral etiology, was recommended to stop antibiotics and start empiric Steroids. 2. Rheumatoid Arthritis recommended on this admission to follow business process specialist as outpatient. 3. Respiratory Insufficiency CXR within normal limits, continue Bronchodilators , Mucolytic and Incentive spirometry. probable also COPD exacerbation, started management and following, D Dimers may need another V/Q scan again. 4. DM II continue Insulin management. Diabetic management. 5. Hypertension uncontrolled increased Hydralazine better control. 6. Hypothyroidism continue Hormonal replacement 7. Obesity strongly recommended diet and exercise as outpatient. Discussed in the room with patient, Nurse Miss Moreno and with ID specialist DVT prophylaxis -Lovenox. Discharge Planning Patient had multiple admissions in the past 6 months due to fever of unknown origin. Patient will require continual hospitalization. If infectious work up is negative she will need to see Band Instrument Repairer as outpatient. Ezekiel Brink MD November 02, 2016 15:33 outpatient. Ezekiel Brink MD November 02, 2016 15:33
[2016-11-02] MEDS: ACETAMINOPHEN/HYDROcodone 325 MG/5 MG TAB PO PRN ×2 (16:31→22:11)
[2016-11-02] MEDS: ONDANSETRON HCL 4 MG/2 ML VIAL IV PUSH PRN (17:20)
[2016-11-02] MEDS: predniSONE 20 MG TAB PO SCH (22:11)
[2016-11-03] VITALS (9 sets, daily range): BP systolic 130–175; BP diastolic 60–73; PULSE 54–82; RESP 18–20; TEMP 97.8–99.6; O2SAT 94–98
[2016-11-03] MEDS: RESP: IPRATROPIUM 0.5 MG/2.5 ML NEB NEB SCH ×8 (00:41→21:11)
[2016-11-03] MEDS: ALPRAZolam 0.25 MG TAB PO PRN ×2 (00:59→21:25)
[2016-11-03] MEDS ORDERED: PHARMACY ORDERED LAB ONE (05:45)
[2016-11-03] MEDS: LEVOTHYROXINE SODIUM 125 MCG TAB PO SCH (06:07)
[2016-11-03] MEDS: INSULIN ASPART SUPPLEMENTAL SCALE SQ SCH ×4 (06:08→21:00)
--- NOTE | 2016-11-03 08:11 | HHI.PR ---
Subjective Remarks This is a pleasant 75 y/o Female with DM II, CAD, rheumatoid arthritis, COPD, who came to ER with fever, body aches, Shortness of breath seen by ID specialist with diagnosis of Fever and Leukocytosis following blood cultures, CSF culture pending, but do not reflect meningitis, probable fever non infectious etiology, probable viral syndrome, recommended Neurology Consult LE weakness, continue Vancomycin, Continue Levaquin, Follow Lyme antibody serology. today seen and discussed with nurse Miss Lopez, she has respiratory insufficiency probable related to IV fluids overload, given Lasix, and Bronchodilator, Mucolytic and Incentive spirometry. 11/01: Seen in her bedroom early in the morning her Mr. Arsen Alford by her side, states is feeling tired, discussed with nurse Brenda Stafford no complaint, but later the same day the patient complaint to doctor Dontfralei about neck pain and radiated to both arms will get MRI of the Cervical spine, Afebrile for the last 48 hours. no nausea, vomit or diarrhea. the patient refused MRI of the Cervical spine, also has Uncontrolled Hypertension increased dosages of Hydralazine and following. 11/02: Discussed with Patient in the room no nausea, vomit or diarrhea, the patient refused MRI, she does not want to continue management states she is tired, discussed with ID specialist Doctor Chandan, even negative Rheumatologic tests wants to give Empiric Prednisone 10 mg BID. 11/03: seen in her bedroom and discussed with nurse Miss White, has some shortness of breath, and after I saw her Doctor Dontfraid found her with Expiratory wheezing, started on Bronchodilator, Mucolytic and Incentive spirometry. asked me for orthopedic cast specialist consult. No nausea, vomit or diarrhea and continue afebrile for the last three days. Objective Vital Signs Date Time Temp Pulse Resp B/P Pulse Ox O2 Delivery O2 Flow Rate FiO2 11/03/16 05:33 97.8 54 18 175/68 97 11/03/16 01:21 98.3 61 18 172/72 96 11/03/16 00:42 98 Nasal Cannula 2.00 11/02/16 23:10 17 11/02/16 21:11 99.4 66 18 151/58 96 11/02/16 20:06 96 Nasal Cannula 2.00 11/02/16 16:34 98.2 66 20 158/71 96 11/02/16 14:15 67 114/54 11/02/16 12:06 18 11/02/16 12:01 98.8 73 20 183/74 94 11/02/16 08:15 96 Nasal Cannula 3.00 I/O 11/02/16 11/02/16 11/02/16 11/03/16 11/03/16 11/03/16 07:00 15:00 23:00 07:00 15:00 23:00 Intake Total 120 ml 240 ml Balance 120 ml 240 ml Intake Oral 120 ml 240 ml # Voids 3 1 # Bowel Movements 0 Result Diagram: 10/30/16 0558 11/02/16 1010 Imaging Last Impressions Lung Scan-VQ Nuclear Medicine 10/31/16 1019 Signed Impressions: Service Date/Time: Monday, October 31, 2016 10:10 - CONCLUSION: Low probability scan for pulmonary embolism. Dre Laguerre MD Chest X-Ray 10/29/16 0000 Signed Impressions: Service Date/Time: Saturday, October 29, 2016 12:35 - CONCLUSION: No acute disease. Hector An MD Abdomen/Pelvis CT 10/27/16 0720 Signed Impressions: Service Date/Time: October 08:15 - CONCLUSION: 1. No acute finding is identified within the abdomen or pelvis to explain the clinical symptoms. Overall, there has been no significant change since the prior study. 2. There is a right ovarian cystic lesion measuring 3.1 cm. It appears simple on this noncontrast examination. This is an abnormal finding for a postmenopausal patient but this lesion has remained present and not significantly changed in size since August 2013. 3. Stable small anterior abdominal wall hernia containing a portion of a small bowel segment. There are no signs of inflammation or bowel wall thickening. 4. Stable nonacute findings include hepatomegaly with steatosis, moderate size hiatal hernia, 15 mm right adrenal gland adenoma, and severe atherosclerotic disease. Dre Gandhi MD Lumbar Puncture Fluoroscopy 10/27/16 0000 Signed Impressions: Service Date/Time: October 14:03 - CONCLUSION: Uncomplicated fluoroscopically guided lumbar puncture. Ernie Auguste MD Procedures No procedures performed. Other Results Laboratory Tests Test 10/27/16 10/28/16 10/30/16 10/30/16 14:02 06:19 05:58 13:47 CSF Lyme Disease DNA (PCR) NOT DETECTED Lyme Disease IgG Ab (Western NEGATIVE Blot) Lyme Disease IgG Ab 18 kDa REACTIVE Band Lyme Disease IgG Ab 23 kDa NON-REACTIVE Band Lyme Disease IgG Ab 28 kDa NON-REACTIVE Band Lyme Disease IgG Ab 30 kDa NON-REACTIVE Band Lyme Disease IgG Ab 39 kDa NON-REACTIVE Band Lyme Disease IgG Ab 41 kDa NON-REACTIVE Band Lyme Disease IgG Ab 45 kDa NON-REACTIVE Band Lyme Disease IgG Ab 58 kDa NON-REACTIVE Band Lyme Disease IgG Ab 66 kDa NON-REACTIVE Band Lyme Disease IgG Ab 93 kDa NON-REACTIVE Band Lyme Disease IgM Ab (Western NEGATIVE Blot) Lyme Disease IgM Ab 23 kDa NON-REACTIVE Band Lyme Disease IgM Ab 39 kDa NON-REACTIVE Band Lyme Disease IgM Ab 41 kDa NON-REACTIVE Band White Blood Count 8.9 TH/MM3 Red Blood Count 3.84 MIL/MM3 Hemoglobin 9.9 GM/DL Hematocrit 31.3 % Mean Corpuscular Volume 81.6 FL Mean Corpuscular Hemoglobin 25.8 PG Mean Corpuscular Hemoglobin 31.6 % Concent Red Cell Distribution Width 16.5 % Platelet Count 296 TH/MM3 Mean Platelet Volume 7.9 FL D-Dimer Quantitative (PE/DVT) 0.91 MG/L FEU Test 10/31/16 11/02/16 17:39 10:10 Vancomycin Level Trough 17.0 MCG/ML Sodium Level 139 MEQ/L Potassium Level 3.1 MEQ/L Chloride Level 100 MEQ/L Carbon Dioxide Level 32.8 MEQ/L Anion Gap 6 MEQ/L Blood Urea Nitrogen 10 MG/DL Creatinine 0.75 MG/DL Estimat Glomerular Filtration 75 ML/MIN Rate Random Glucose 142 MG/DL Calcium Level 8.1 MG/DL Phosphorus Level 3.1 MG/DL Magnesium Level 2.0 MG/DL Objective Remarks GENERAL: Obesity with mild to moderate respiratory distress. SKIN: Warm and dry. HEAD: Atraumatic. Normocephalic. EYES: Pupils equal and round. No scleral icterus. No injection or drainage. ENT: No nasal bleeding or discharge. Mucous membranes pink and moist. NECK: Trachea midline. No JVD. CARDIOVASCULAR: Regular rate and rhythm. RESPIRATORY: Decreased breath sounds bilateral, Mild expiratory wheezing, no crackles. GASTROINTESTINAL: Abdomen soft, non-tender, nondistended. MUSCULOSKELETAL: Extremities without clubbing, cyanosis, edema 2+ NEUROLOGICAL: Awake and alert. No focal deficits. PSYCHIATRIC: Appropriate mood and affect. Medications and IVs Current Medications Medications (Trade) Dose Ordered Sig/Amador Route Start Time Stop Time Status Last Admin (NS Flush) 2 ml UNSCH PRN IV FLUSH 10/27/16 10:45 11/01/16 05:34 (NS Flush) 2 ml BID IV FLUSH 10/27/16 21:00 11/02/16 21:00 (Tylenol) 650 mg Q4H PRN PO 10/27/16 10:45 10/29/16 21:33 (Dulcolax Supp) 10 mg DAILY PRN RECTAL 10/27/16 10:45 (Lovenox Inj) 40 mg Q24H SQ 10/27/16 11:00 11/02/16 11:01 (Xanax) 0.25 mg Q12HR PRN PO 10/27/16 11:30 11/03/16 00:59 (Aspirin Chew) 81 mg DAILY CHEW 10/28/16 09:00 11/02/16 09:18 (Symbicort 160-4.5 Inh) 1 puff Q12HR INH 10/27/16 21:00 11/02/16 21:00 (CeleXA) 40 mg DAILY PO 10/28/16 09:00 11/02/16 09:17 (Zetia) 10 mg DAILY PO 10/28/16 09:00 11/02/16 09:19 ([place] 5-325 Mg) 1 tab Q6H PRN PO 10/27/16 11:30 11/02/16 22:11 (Plaquenil) 200 mg DAILY PO 10/28/16 09:00 11/02/16 09:18 (Synthroid) 125 mcg DAILY@0600 PO 10/28/16 06:00 11/03/16 06:07 (Lopressor) 25 mg BID PO 10/27/16 21:00 11/02/16 22:12 (Colace) 100 mg BID PO 10/27/16 21:00 11/02/16 22:11 (Prinivil) 40 mg BID PO 10/27/16 11:45 11/02/16 22:11 (D50w (Vial) Inj) 25 ml UNSCH PRN IV PUSH 10/27/16 11:30 (Glucagon Inj) 1 mg UNSCH PRN OTHER 10/27/16 11:30 (Levemir Inj) 25 units BID SQ 10/27/16 21:00 11/02/16 21:00 (Norvasc) 10 mg DAILY PO 10/28/16 09:00 11/02/16 09:19 (Dilaudid Pf Inj) 1 mg Q4H PRN IV PUSH 10/27/16 15:15 11/02/16 11:09 (Ambien) 5 mg HS PRN PO 10/28/16 15:30 11/01/16 21:57 (Zofran Inj) 4 mg Q6H PRN IV PUSH 10/28/16 15:30 11/02/16 17:20 (Mucinex Er) 600 mg BID PO 10/30/16 10:00 11/02/16 22:11 (Benadryl) 25 mg Q6H PRN PO 10/31/16 14:00 11/02/16 22:11 (Apresoline) 50 mg TID PO 11/01/16 18:00 11/02/16 16:26 (Deltasone) 20 mg BID PO 11/02/16 21:00 11/02/16 22:11 A/P Assessment and Plan 1. Fever Of unknown Origin she is been having fever for the last six months. afebrile. ID specialist following recommended to continue antibiotics, broad spectrum and follow, fever, cultures, probable viral etiology, was recommended to stop antibiotics and start empiric Steroids. 2. Rheumatoid Arthritis recommended on this admission to follow dental billing specialist as outpatient. 3. Respiratory Insufficiency CXR within normal limits, continue Bronchodilators , Mucolytic and Incentive spirometry. probable also COPD exacerbation, started management and following, elevated D Dimers, had V/Q scan low probability for PE today worsening, asked for forestry biology specialist consult. 4. DM II continue Insulin management. Increased to Levemir 27 units BID. 5. Hypertension better control. 6. Hypothyroidism continue Hormonal replacement 7. Obesity strongly recommended diet and exercise as outpatient. Discussed in the room with patient, Nurse Miss White and followed recommendations by ID specialist doctor Chandan appreciated input and recommendations. DVT prophylaxis -Lovenox. Discharge Planning Patient had multiple admissions in the past 6 months due to fever of unknown origin. If infectious work up is negative she will need to see Fiberglass Model Maker as outpatient. Ezekiel Brink MD November 03, 2016 08:11
[2016-11-03] MEDS: BUDESONIDE-FORMOTEROL 160/4.5 MCG INHALER INH SCH ×2 (09:00→21:00)
[2016-11-03] MEDS: guaiFENesin E.R. 600 MG TAB PO SCH ×3 (09:00→21:18)
[2016-11-03] MEDS: ASPIRIN 81 MG CHEW TAB CHEW SCH (09:53)
[2016-11-03] MEDS: hydrALAZINE HCL 50 MG TAB PO SCH ×3 (09:54→18:00)
[2016-11-03] MEDS: LISINOPRIL 20 MG TAB PO SCH ×2 (09:54→21:17)
[2016-11-03] MEDS: predniSONE 20 MG TAB PO SCH (09:54)
[2016-11-03] MEDS: DOCUSATE SODIUM 100 MG CAP PO SCH ×2 (09:54→21:17)
[2016-11-03] MEDS: CITALOPRAM HYDROBROMIDE 20 MG TAB PO SCH (09:54)
[2016-11-03] MEDS: EZETIMIBE 10 MG TAB PO SCH (09:54)
[2016-11-03] MEDS: METOPROLOL TARTRATE 25 MG TAB PO SCH ×2 (09:54→21:00)
[2016-11-03] MEDS: HYDROXYCHLOROQUINE SULFATE 200 MG TAB PO SCH (09:54)
[2016-11-03] MEDS: INSULIN DETEMIR 100 UNITS/ML VIAL SQ SCH ×2 (09:55→21:00)
[2016-11-03] MEDS: SODIUM CHLORIDE 0.9% FLUSH 10 ML FLUSH IV FLUSH SCH ×2 (09:56→21:00)
[2016-11-03] MEDS: ACETAMINOPHEN/HYDROcodone 325 MG/5 MG TAB PO PRN (09:56)
[2016-11-03] MEDS: ENOXAPARIN SODIUM 40 MG/0.4 ML SYRINGE SQ SCH (10:05)
--- NOTE | 2016-11-03 10:57 | HHI.IDPN ---
Note Infectious Disease Note Patient feels better. Up in bedside chair. Was very tired and not wanting to get up from bed yesterday. Patient says neck pain is better with pain med. Still has cough but no sputum production. Afebrile. Denies chills. Became dyspneic when ambulating with PT. On O2 via NC. CSF culture no growth. Lyme DNA not detected in CSF. Lyme antibody negative. Rheumatoid screen negative. Admitted with weakness, fatigue, cough, fever, leukocytosis. PAST MEDICAL HISTORY 1. Rheumatoid arthritis 2. Fibromyalgia 3. Hypertension 4. Diabetes mellitus 5. Hypothyroidism 6. Hyperlipidemia 7. Gastroesophageal reflux disease 8. Lumbar stenosis 9. Asthma 10. Psoriasis 11. Bilateral knee replacements 12. Cardiac stents 13. Hysterectomy 14. Sigmoid resection and colostomy followed by the reversal of colostomy and subsequent bowel resection 15. Ventral hernia repair ALLERGIES PENICILLIN, ERYTHROMYCIN, METFORMIN, MORPHINE, SULFA, IODINE, MERCURY. THE PATIENT IS ALSO ALLERGIC TO SEAFOOD, MOLDS AND EGGS. ANTIBIOTICS: D/C 11/02. On Prednisone. OBJECTIVE: Vital Signs Date Time Temp Pulse Resp B/P Pulse Ox O2 Delivery O2 Flow Rate FiO2 11/03/16 08:39 98 Nasal Cannula 2.00 11/03/16 08:25 97.9 70 18 159/73 96 11/03/16 05:33 97.8 54 18 175/68 97 11/03/16 01:21 98.3 61 18 172/72 96 11/03/16 00:42 98 Nasal Cannula 2.00 11/02/16 23:10 17 11/02/16 21:11 99.4 66 18 151/58 96 11/02/16 20:06 96 Nasal Cannula 2.00 11/02/16 16:34 98.2 66 20 158/71 96 11/02/16 14:15 67 114/54 11/02/16 12:06 18 11/02/16 12:01 98.8 73 20 183/74 94 11/02/16 11/02/16 11/03/16 15:00 23:00 07:00 Intake Total 240 ml Balance 240 ml Intake Oral 240 ml # Voids 1 # Bowel Movements 0 Laboratory Tests Test 11/02/16 10:10 Sodium Level 139 MEQ/L Potassium Level 3.1 MEQ/L Chloride Level 100 MEQ/L Carbon Dioxide Level 32.8 MEQ/L Anion Gap 6 MEQ/L Blood Urea Nitrogen 10 MG/DL Creatinine 0.75 MG/DL Estimat Glomerular Filtration 75 ML/MIN Rate Random Glucose 142 MG/DL Calcium Level 8.1 MG/DL Phosphorus Level 3.1 MG/DL Magnesium Level 2.0 MG/DL Microbiology Date/Time Procedure Status Source Growth 10/31/16 21:33 Gram Stain - Final Complete Sputum Expectorated Sputum 10/31/16 21:33 Sputum Culture - Final Complete Sputum Expectorated Sputum IMAGING: Lung Scan-V Nuclear Medicine 10/31/16 1019 Signed Impressions: Service Date/Time: Monday, October 31, 2016 10:10 - CONCLUSION: Low probability scan for pulmonary embolism. Dre Laguerre MD Chest X-Ray 10/27/16719 Signed Impressions: Service Date/Time: October 07:34 - CONCLUSION: No acute cardiopulmonary abnormality is identified. Dre Gandhi MD Abdomen/Pelvis CT [id number]/27/16719 Signed Impressions: Service Date/Time: October 08:15 - CONCLUSION: 1. No acute finding is identified within the abdomen or pelvis to explain the clinical symptoms. Overall, there has been no significant change since the prior study. 2. There is a right ovarian cystic lesion measuring 3.1 cm. It appears simple on this noncontrast examination. This is an abnormal finding for a postmenopausal patient but this lesion has remained present and not significantly changed in size since August 2013. 3. Stable small anterior abdominal wall hernia containing a portion of a small bowel segment. There are no signs of inflammation or bowel wall thickening. 4. Stable nonacute findings include hepatomegaly with steatosis, moderate size hiatal hernia, 15 mm right adrenal gland adenoma, and severe atherosclerotic disease. Dre Gandhi MD Lumbar Puncture Fluoroscopy 10/27/16 0000 Signed Impressions: Service Date/Time: October 14:03 - CONCLUSION: Uncomplicated fluoroscopically guided lumbar puncture. Ernie Auguste MD PHYSICAL EXAMINATION GENERAL: No acute distress. HEENT: No icterus. No conjunctival erythema. Oropharynx, dry mucosa. No visible lesions. NECK: Supple without adenopathy. LUNGS: Diffuse bilateral rales and wheezing. HEART: Regular S1-S2. No audible murmurs. ABDOMEN: Bowel sounds diminished, soft, no tenderness. EXTREMITIES: No clubbing, cyanosis or edema. SKIN: No rash. Dry and warm. NEUROLOGIC: Non focal. PSYCHIATRIC: Calm and cooperative. IMPRESSION 1. Fever and leukocytosis in patient with diffuse joint aches and joint stiffness. CSF studies do not reflect meningitis. 2. FUO. Probable noninfectious etiology. Possibly related to the patient's arthritis. She does have rheumatoid arthritis and it is unclear whether this could be a flare-up of her underlying rheumatoid arthritis. 3. Given the elevated temperature and elevated white blood cell count, infection is a possibility and probably a viral infection with a viral syndrome is possible as well. 4. Probable pneumonia. Cultures are negative. 5. Neck and joint pain. ? neuropathy. 6. Chronic tiredness. ? fibromyalgia. 7. VALDES. ? Asthma flare RECOMMENDATIONS 1. Consider pulmonary consult. Notified DR. Courtney. 2. Continue prednisone. 3. Monitor clinical status. 4. Monitor without antibiotics. Hunter Hawley MD November 03, 2016 10:57
[2016-11-03] MEDS ORDERED: POTASSIUM CHLORIDE 20 MEQ CONTROLLED RELEASE TAB PO ONE ×2 (12:30→14:30)
[2016-11-03] MEDS ORDERED: RESP: BUDESONIDE 0.5 MG/2 ML NEB NEB SCH (13:00)
[2016-11-03] MEDS: methylPREDNISolone SOD SUCC 40 MG/1 ML VIAL IV SCH ×2 (14:44→21:20)
[2016-11-03] MEDS: ONDANSETRON HCL 4 MG/2 ML VIAL IV PUSH PRN (14:51)
--- NOTE | 2016-11-03 18:45 | MB ---
cc: KIERAN POWELL DATE OF CONSULTATION: 11/03/2016. REASON FOR CONSULTATION: Respiratory distress and pneumonia. HISTORY OF PRESENT ILLNESS: This is a 75-year-old white female who has had multiple admissions to the hospital with complaints of shortness of breath, wheezing, cough, generalized body aches and pains and a history for pneumonia recently. The patient apparently was running some low-grade fevers. Denied any night sweats but has had a persistent cough and brings up very little mucus. She has been treated for pneumonia since the past three weeks but her most recent chest x-ray showed clear lung white and a VQ lung scan was done which showed low probability for pulmonary emboli. She complains of pains in the back. Denies any nausea, vomiting or aspiration and she does have persistent wheezing and apparently has had a longstanding history of asthma. PAST MEDICAL HISTORY: The past history has included: 1. History of COPD. 2. History of asthma with chronic bronchitis. 3. History of gastroesophageal reflux. 4. History of fibromyalgia. 5. History of diabetes. 6. Hypertension. 7. She has had rheumatoid arthritis. 8. History of lumbar spine stenosis. PAST SURGICAL HISTORY: Surgery also includes: 1. History for coronary artery disease with coronary artery stenting. 2. Bilateral knee replacement surgery. 3. Exploratory laparotomy. 4. Ventral hernia repairs. 5. History of lysis of adhesions. 6. Bowel resection. 7. History of colostomy and reversal of colostomy. 8. Hysterectomy. HABITS: The patient does not smoke. No history of significant alcohol. ALLERGIES: 1. PENICILLIN. 2. SULFA. 3. SEAFOOD. 4. IODINE. 5. E-MYCIN. 6. MOLDS. 7. MORPHINE. 8. METFORMIN. FAMILY HISTORY: Significant for diabetes in her father. The mother had a CVA. MEDICATION LIST: Reviewed from the chart and also includes: 1. Levaquin. 2. DuoNeb nebulizers. 3. Symbicort. 4. Vancomycin. 5. Aztreonam. 6. Metronidazole. REVIEW OF SYSTEMS: The patient is overweight. She has postnasal drip, cough, wheezing, chest congestion. She has epigastric distress, reflux and abdominal pains. She has urinary frequency. No hematuria. No leg or calf muscle pains but has multiple joint pains and muscle aches and denies any skin rash. The other system review is negative. PHYSICAL EXAMINATION: GENERAL: This is a moderately obese elderly lady who is sitting upright in no acute distress. VITAL SIGNS: Blood pressure 160/70, pulse is 75, respirations 22, temperature 98.2. HEAD, EYES, EARS, NOSE, THROAT: Head normocephalic. The pupils are reactive. Tongue is moist. Throat was clear. Nasal mucosa edematous. NECK: No bruits. No thyroid enlargement. No lymphadenopathy. CHEST: Decreased excursions to percussion. Resonant throughout. Coarse wheezes throughout both lung white. Prolonged expirations with occasional crackles at the bases. HEART: Heart sounds are irregular. S1 and S2 with no murmur. ABDOMEN: Abdomen obese and protuberant without masses. No organomegaly or tenderness. The bowel sounds are active. EXTREMITIES: Mild varicosities and no edema. Peripheral pulses are diminished. NEUROLOGIC: Reflexes are 1+ with no gross motor deficits. SKIN: No lesions are observed. RECTAL: Rectal exam is deferred. IMPRESSION: 1. Asthmatic bronchitis. 2. COPD. 3. Rule out interstitial lung disease. 4. History of diabetes mellitus type 2. 5. History of hypertension. 6. Rheumatoid arthritis with fibromyalgia. 7. Possible obstructive sleep apnea. PLAN: 1. The patient has been advised that a CT chest without contrast to be done. 2. Nebulized DuoNeb solution added four times a day. 3. Will continue with nebulized Budesonide solution twice a day 0.5 milligrams. 4. The patient will also have a bedside pulmonary function study done, IgE level done. 5. She has already been on antibiotics per the infectious disease service which will continue as ordered. 6. We will also continue with steroids. 7. We will await further immune marker titers. Further recommendations after these studies are back. Thank you for this consultation. MD LOUIE Meyer/JULISA /5:51 PM /6:11 PM
--- NOTE | 2016-11-03 19:42 | RADRPT ---
EXAM DATE/TIME: 11/03/2016 18:28 [facility] COMPARISON: CHEST PA & LAT, October 29, 2016, 12:35. INDICATIONS : Evaluate for infiltrate.? RADIATION DOSE: 6.58 CTDIvol (mGy) MEDICAL HISTORY : Cardiovascular disease. Hypertension. SURGICAL HISTORY : Coronary artery stent. ENCOUNTER: Initial ACUITY: 1 day PAIN SCALE: 0/10 LOCATION: Chest TECHNIQUE: Volumetric scanning of the chest was performed. Using automated exposure control and adjustment of the mA and/or kV according to patient size, radiation dose was kept as low as reasonab ly achievable to obtain optimal diagnostic quality images. FINDINGS: The patient does have an area of faint opacification at the superior lateral right uppe r lobe and a second area seen in the more central inferior aspect of the right upper lobe. There are some similar minimal increased density at the posterior medial left upper lobe and the anterior medi al superior right middle lobe. These represent areas of ground glass opacity. There is some more li near density at the lower lobes bilaterally likely representing atelectasis. Significant areas of adenopathy are not appreciated. Coronary artery calcifications are present. The patient does have a moderate hiatal hernia present. The visualized structures in the upper abdomen are unremarkable. CONCLUSION: 1. Areas of ground glass opacity in the right upper lobe, left upper lobe, and right middle lobe. Th gomez are nonspecific. Typically these findings are followed with a noncontrast CT examination in thre e months. 2. Linear areas of suspected atelectasis at the lung bases. 3. Moderate hiatal hernia. rDe Monroe MD on November 03, 2016 at 19:07 Board Certified Radiologist. This report was verified electronically.
[2016-11-03] MEDS: diphenhydrAMINE HCL 25 MG CAP PO PRN (21:25)
[2016-11-04] VITALS (8 sets, daily range): BP systolic 148–189; BP diastolic 62–168; PULSE 18–81; RESP 16–22; TEMP 97–98.9; O2SAT 81–98
[2016-11-04] MEDS: RESP: IPRATROPIUM 0.5 MG/2.5 ML NEB NEB SCH ×13 (00:16→20:00)
[2016-11-04] MEDS: ACETAMINOPHEN/HYDROcodone 325 MG/5 MG TAB PO PRN ×2 (02:01→23:18)
[2016-11-04] MEDS: LEVOTHYROXINE SODIUM 125 MCG TAB PO SCH (06:00)
[2016-11-04] MEDS: methylPREDNISolone SOD SUCC 40 MG/1 ML VIAL IV SCH ×3 (06:00→20:32)
[2016-11-04] MEDS: INSULIN ASPART SUPPLEMENTAL SCALE SQ SCH ×4 (06:24→20:31)
--- NOTE | 2016-11-04 08:46 | HHI.PR ---
Subjective Remarks This is a pleasant 75 y/o Female with DM II, CAD, rheumatoid arthritis, COPD, who came to ER with fever, body aches, Shortness of breath seen by ID specialist with diagnosis of Fever and Leukocytosis following blood cultures, CSF culture pending, but do not reflect meningitis, probable fever non infectious etiology, probable viral syndrome, recommended Neurology Consult LE weakness, continue Vancomycin, Continue Levaquin, Follow Lyme antibody serology. today seen and discussed with nurse John, she has respiratory insufficiency probable related to IV fluids overload, given Lasix, and Bronchodilator, Mucolytic and Incentive spirometry. 11/01: Seen in her bedroom early in the morning her Mr. Arsen Alford by her side, states is feeling tired, discussed with nurse the patient complaint to doctor Dontfraid about neck pain and radiated to both arms, ordered MRI of the Cervical spine but refused Afebrile for the last 48 hours. has Uncontrolled Hypertension increased dosages of Hydralazine and following. 11/02: Discussed with ID specialist Doctor Dontfraid, even negative Rheumatologic tests wants to give Empiric Prednisone 10 mg BID 11/03: Developed Expiratory Wheezing, physical education specialist consulted, had Chest CT scan, started on Solu-Medrol. 11/04: Patient in her bedroom, continue NO nausea, vomit or diarrhea, but worsening weakness. discussed with patient and with nurse Miss White. Objective Vital Signs Date Time Temp Pulse Resp B/P Pulse Ox O2 Delivery O2 Flow Rate FiO2 11/04/16 07:56 97.6 73 18 167/66 95 11/04/16 04:00 98.9 79 22 189/ 97 11/04/16 03:00 17 11/04/16 00:00 97.7 81 16 183/168 81 11/03/16 21:15 97 Nasal Cannula 2.00 11/03/16 20:20 99.6 82 20 156/67 97 11/03/16 16:15 99.0 75 18 152/62 94 11/03/16 12:11 98.7 72 18 131/60 97 I/O 11/03/16 11/03/16 11/03/16 11/04/16 11/04/16 11/04/16 07:00 15:00 23:00 07:00 15:00 23:00 # Voids 1 2 # Bowel Movements 0 Result Diagram: 11/03/16 1800 Imaging Last Impressions Chest CT 11/03/16 1745 Signed Impressions: Service Date/Time: October 18:28 - CONCLUSION: 1. Areas of ground glass opacity in the right upper lobe, left upper lobe, and right middle lobe. These are nonspecific. Typically these findings are followed with a noncontrast CT examination in three months. 2. Linear areas of suspected atelectasis at the lung bases. 3. Moderate hiatal hernia. Dre Monroe MD Lung Scan-V Nuclear Medicine 10/31/16 1019 Signed Impressions: Service Date/Time: Monday, October 31, 2016 10:10 - CONCLUSION: Low probability scan for pulmonary embolism. Dre Laguerre MD Chest X-Ray 10/29/16 0000 Signed Impressions: Service Date/Time: Saturday, October 29, 2016 12:35 - CONCLUSION: No acute disease. Hector An MD Abdomen/Pelvis CT 10/27/16 0720 Signed Impressions: Service Date/Time: October 08:15 - CONCLUSION: 1. No acute finding is identified within the abdomen or pelvis to explain the clinical symptoms. Overall, there has been no significant change since the prior study. 2. There is a right ovarian cystic lesion measuring 3.1 cm. It appears simple on this noncontrast examination. This is an abnormal finding for a postmenopausal patient but this lesion has remained present and not significantly changed in size since August 2013. 3. Stable small anterior abdominal wall hernia containing a portion of a small bowel segment. There are no signs of inflammation or bowel wall thickening. 4. Stable nonacute findings include hepatomegaly with steatosis, moderate size hiatal hernia, 15 mm right adrenal gland adenoma, and severe atherosclerotic disease. Dre Gandhi MD Lumbar Puncture Fluoroscopy 10/27/16 0000 Signed Impressions: Service Date/Time: October 14:03 - CONCLUSION: Uncomplicated fluoroscopically guided lumbar puncture. Ernie Auguste MD Procedures No procedures performed. Other Results Laboratory Tests Test 10/27/16 10/28/16 10/31/16 11/02/16 14:02 06:19 17:39 10:10 CSF Lyme Disease DNA (PCR) NOT DETECTED Lyme Disease IgG Ab (Western NEGATIVE Blot) Lyme Disease IgG Ab 18 kDa REACTIVE Band Lyme Disease IgG Ab 23 kDa NON-REACTIVE Band Lyme Disease IgG Ab 28 kDa NON-REACTIVE Band Lyme Disease IgG Ab 30 kDa NON-REACTIVE Band Lyme Disease IgG Ab 39 kDa NON-REACTIVE Band Lyme Disease IgG Ab 41 kDa NON-REACTIVE Band Lyme Disease IgG Ab 45 kDa NON-REACTIVE Band Lyme Disease IgG Ab 58 kDa NON-REACTIVE Band Lyme Disease IgG Ab 66 kDa NON-REACTIVE Band Lyme Disease IgG Ab 93 kDa NON-REACTIVE Band Lyme Disease IgM Ab (Western NEGATIVE Blot) Lyme Disease IgM Ab 23 kDa NON-REACTIVE Band Lyme Disease IgM Ab 39 kDa NON-REACTIVE Band Lyme Disease IgM Ab 41 kDa NON-REACTIVE Band Vancomycin Level Trough 17.0 MCG/ML Sodium Level 139 MEQ/L Chloride Level 100 MEQ/L Carbon Dioxide Level 32.8 MEQ/L Anion Gap 6 MEQ/L Blood Urea Nitrogen 10 MG/DL Creatinine 0.75 MG/DL Estimat Glomerular Filtration 75 ML/MIN Rate Random Glucose 142 MG/DL Calcium Level 8.1 MG/DL Phosphorus Level 3.1 MG/DL Magnesium Level 2.0 MG/DL Test 11/03/16 18:00 Potassium Level 4.3 MEQ/L Objective Remarks GENERAL: Obesity with mild to moderate respiratory distress. SKIN: Warm and dry. HEAD: Atraumatic. Normocephalic. EYES: Pupils equal and round. No scleral icterus. No injection or drainage. ENT: No nasal bleeding or discharge. Mucous membranes pink and moist. NECK: Trachea midline. No JVD. CARDIOVASCULAR: Regular rate and rhythm. RESPIRATORY: Decreased breath sounds bilateral, Mild expiratory wheezing, no crackles. GASTROINTESTINAL: Abdomen soft, non-tender, nondistended. MUSCULOSKELETAL: Extremities without clubbing, cyanosis, edema 2+ NEUROLOGICAL: Awake and alert. No focal deficits. PSYCHIATRIC: Appropriate mood and affect. Medications and IVs Current Medications Medications (Trade) Dose Ordered Sig/Amador Route Start Time Stop Time Status Last Admin (NS Flush) 2 ml UNSCH PRN IV FLUSH 10/27/16 10:45 11/01/16 05:34 (NS Flush) 2 ml BID IV FLUSH 10/27/16 21:00 11/03/16 21:00 (Tylenol) 650 mg Q4H PRN PO 10/27/16 10:45 10/29/16 21:33 (Dulcolax Supp) 10 mg DAILY PRN RECTAL 10/27/16 10:45 (Lovenox Inj) 40 mg Q24H SQ 10/27/16 11:00 11/03/16 10:05 (Xanax) 0.25 mg Q12HR PRN PO 10/27/16 11:30 11/03/16 21:25 (Aspirin Chew) 81 mg DAILY CHEW 10/28/16 09:00 11/03/16 09:53 (Symbicort 160-4.5 Inh) 1 puff Q12HR INH 10/27/16 21:00 11/03/16 21:00 (CeleXA) 40 mg DAILY PO 10/28/16 09:00 11/03/16 09:54 (Zetia) 10 mg DAILY PO 10/28/16 09:00 11/03/16 09:54 ([employer] 5-325 Mg) 1 tab Q6H PRN PO 10/27/16 11:30 11/04/16 02:01 (Plaquenil) 200 mg DAILY PO 10/28/16 09:00 11/03/16 09:54 (Synthroid) 125 mcg DAILY@0600 PO 10/28/16 06:00 11/04/16 06:00 (Lopressor) 25 mg BID PO 10/27/16 21:00 11/03/16 21:00 (Colace) 100 mg BID PO 10/27/16 21:00 11/03/16 21:17 (Prinivil) 40 mg BID PO 10/27/16 11:45 11/03/16 21:17 (D50w (Vial) Inj) 25 ml UNSCH PRN IV PUSH 10/27/16 11:30 (Glucagon Inj) 1 mg UNSCH PRN OTHER 10/27/16 11:30 (Norvasc) 10 mg DAILY PO 10/28/16 09:00 11/03/16 09:54 (Dilaudid Pf Inj) 1 mg Q4H PRN IV PUSH 10/27/16 15:15 11/02/16 11:09 (Ambien) 5 mg HS PRN PO 10/28/16 15:30 11/01/16 21:57 (Zofran Inj) 4 mg Q6H PRN IV PUSH 10/28/16 15:30 11/03/16 14:51 (Mucinex Er) 600 mg BID PO 10/30/16 10:00 11/03/16 21:18 (Benadryl) 25 mg Q6H PRN PO 10/31/16 14:00 11/03/16 21:25 (Apresoline) 50 mg TID PO 11/01/16 18:00 11/03/16 18:00 (Deltasone) 20 mg BID PO 11/02/16 21:00 Hold 11/03/16 09:54 (Mucinex Er) 600 mg BID PO 11/03/16 21:00 11/03/16 21:00 (Levemir Inj) 27 units BID SQ 11/03/16 21:00 11/03/16 21:00 (SoluMEDROL INJ) 40 mg Q8H IV 11/03/16 14:00 11/04/16 06:00 A/P Assessment and Plan 1. Fever Of unknown Origin she is been having fever for the last six months. afebrile. ID specialist following recommended to continue antibiotics, broad spectrum and follow, fever, cultures, probable viral etiology, was recommended to stop antibiotics and start empiric Steroids. 2. Rheumatoid Arthritis recommended on this admission to follow perinatal specialist as outpatient. 3. Respiratory Insufficiency CXR within normal limits, continue Bronchodilators , Mucolytic and Incentive spirometry. probable also COPD exacerbation, started management and following, elevated D Dimers, had V/Q scan low probability for PE due to worsening respiratory status consulted physical education specialist started IV Steroids and CT chest giving ground glass opacity in the right upper lobe, left upper lobe, and right middle lobe. These are nonspecific. Typically these findings are followed with a noncontrast CT examination in three months. awaiting recommendations by physical education specialist. 4. DM II continue Insulin management. Uncontrolled increased Levemir to 30 units twice a day. 5. Hypertension better control. adjusted Hydralazine and following. 6. Hypothyroidism continue Hormonal replacement asked for new TSH and Free T4. 7. Obesity strongly recommended diet and exercise as outpatient. Discussed in the room with patient, Nurse Miss White all questions answered to the best of my abilities. DVT prophylaxis -Lovenox. Discharge Planning Patient had multiple admissions in the past 6 months due to fever of unknown origin. If infectious work up is negative she will need to see [facility] as outpatient. Ezekiel Brink MD November 04, 2016 08:46
[2016-11-04] MEDS: BUDESONIDE-FORMOTEROL 160/4.5 MCG INHALER INH SCH ×2 (09:00→20:31)
[2016-11-04] MEDS: guaiFENesin E.R. 600 MG TAB PO SCH ×3 (09:00→20:30)
[2016-11-04] MEDS: ASPIRIN 81 MG CHEW TAB CHEW SCH (09:36)
[2016-11-04] MEDS: LISINOPRIL 20 MG TAB PO SCH ×2 (09:36→20:30)
[2016-11-04] MEDS: hydrALAZINE HCL 50 MG TAB PO SCH ×3 (09:36→17:26)
[2016-11-04] MEDS: METOPROLOL TARTRATE 25 MG TAB PO SCH ×2 (09:37→20:30)
[2016-11-04] MEDS: INSULIN DETEMIR 100 UNITS/ML VIAL SQ SCH ×2 (09:37→20:31)
[2016-11-04] MEDS: CITALOPRAM HYDROBROMIDE 20 MG TAB PO SCH (09:37)
[2016-11-04] MEDS: DOCUSATE SODIUM 100 MG CAP PO SCH ×2 (09:37→20:30)
[2016-11-04] MEDS: EZETIMIBE 10 MG TAB PO SCH (09:37)
[2016-11-04] MEDS: ENOXAPARIN SODIUM 40 MG/0.4 ML SYRINGE SQ SCH (09:37)
[2016-11-04] MEDS: HYDROXYCHLOROQUINE SULFATE 200 MG TAB PO SCH (09:37)
[2016-11-04] MEDS: ALPRAZolam 0.25 MG TAB PO PRN ×2 (09:41→22:01)
[2016-11-04] MEDS: SODIUM CHLORIDE 0.9% FLUSH 10 ML FLUSH IV FLUSH SCH ×2 (09:42→20:31)
[2016-11-04] MEDS: HYDROmorphone HCL PF 1 MG/ML VIAL IV PUSH PRN (15:33)
--- NOTE | 2016-11-04 16:59 | HHI.IDPN ---
Note Infectious Disease Note Patient feeling better. [place] short of breath after she got back into bedside chair after going to the bathroom. Now coughing up light green sputum. Afebrile. Denies chills. Chest CT scan noted. Pulmonary consult noted. CSF culture no growth. Lyme DNA not detected in CSF. Lyme antibody negative. Rheumatoid screen negative. Admitted with weakness, fatigue, cough, fever, leukocytosis. PAST MEDICAL HISTORY 1. Rheumatoid arthritis 2. Fibromyalgia 3. Hypertension 4. Diabetes mellitus 5. Hypothyroidism 6. Hyperlipidemia 7. Gastroesophageal reflux disease 8. Lumbar stenosis 9. Asthma 10. Psoriasis 11. Bilateral knee replacements 12. Cardiac stents 13. Hysterectomy 14. Sigmoid resection and colostomy followed by the reversal of colostomy and subsequent bowel resection 15. Ventral hernia repair ALLERGIES PENICILLIN, ERYTHROMYCIN, METFORMIN, MORPHINE, SULFA, IODINE, MERCURY. THE PATIENT IS ALSO ALLERGIC TO SEAFOOD, MOLDS AND EGGS. ANTIBIOTICS: D/C 11/02. On Prednisone. OBJECTIVE: Vital Signs Date Time Temp Pulse Resp B/P Pulse Ox O2 Delivery O2 Flow Rate FiO2 11/04/16 16:20 98.1 64 18 155/62 95 11/04/16 16:07 20 11/04/16 12:16 97.0 70 18 159/69 96 11/04/16 08:00 95 Nasal Cannula 2.00 11/04/16 07:56 97.6 73 18 167/66 95 11/04/16 04:00 98.9 79 22 189/ 97 11/04/16 03:00 17 11/04/16 00:00 97.7 81 16 183/168 81 11/03/16 21:15 97 Nasal Cannula 2.00 11/03/16 20:20 99.6 82 20 156/67 97 11/03/16 11/03/16 11/04/16 15:00 23:00 07:00 # Voids 2 Laboratory Tests Test 11/03/16 18:00 Potassium Level 4.3 MEQ/L IMAGING: Chest CT 11/03/16 5824 Signed Impressions: Service Date/Time: October 18:28 - CONCLUSION: 1. Areas of ground glass opacity in the right upper lobe, left upper lobe, and right middle lobe. These are nonspecific. Typically these findings are followed with a noncontrast CT examination in three months. 2. Linear areas of suspected atelectasis at the lung bases. 3. Moderate hiatal hernia. Dre Monroe MD Lung Scan-V Nuclear Medicine 10/31/16 1019 Signed Impressions: Service Date/Time: Monday, October 31, 2016 10:10 - CONCLUSION: Low probability scan for pulmonary embolism. Dre Laguerre MD Chest X-Ray 10/27/16 0720 Signed Impressions: Service Date/Time: October 07:34 - CONCLUSION: No acute cardiopulmonary abnormality is identified. Dre Gandhi MD Abdomen/Pelvis CT 10/27/16 0720 Signed Impressions: Service Date/Time: October 08:15 - CONCLUSION: 1. No acute finding is identified within the abdomen or pelvis to explain the clinical symptoms. Overall, there has been no significant change since the prior study. 2. There is a right ovarian cystic lesion measuring 3.1 cm. It appears simple on this noncontrast examination. This is an abnormal finding for a postmenopausal patient but this lesion has remained present and not significantly changed in size since August 2013. 3. Stable small anterior abdominal wall hernia containing a portion of a small bowel segment. There are no signs of inflammation or bowel wall thickening. 4. Stable nonacute findings include hepatomegaly with steatosis, moderate size hiatal hernia, 15 mm right adrenal gland adenoma, and severe atherosclerotic disease. Dre Gandhi MD Lumbar Puncture Fluoroscopy 10/27/16 0000 Signed Impressions: Service Date/Time: October 14:03 - CONCLUSION: Uncomplicated fluoroscopically guided lumbar puncture. Ernie Auguste MD PHYSICAL EXAMINATION GENERAL: No acute distress. HEENT: No icterus. No conjunctival erythema. Oropharynx, dry mucosa. No visible lesions. NECK: Supple without adenopathy. LUNGS: Bilateral rhonchi. HEART: Regular S1-S2. No audible murmurs. ABDOMEN: Bowel sounds diminished, soft, no tenderness. EXTREMITIES: No clubbing, cyanosis or edema. SKIN: No rash. Dry and warm. NEUROLOGIC: Non focal. PSYCHIATRIC: Calm and cooperative. IMPRESSION 1. Fever and leukocytosis in patient with diffuse joint aches and joint stiffness. CSF studies do not reflect meningitis. WBC now normal. 2. FUO. Probable noninfectious etiology. Possibly related to the patient's arthritis. She does have rheumatoid arthritis and it is unclear whether this could be a flare-up of her underlying rheumatoid arthritis. 3. Given the elevated temperature and elevated white blood cell count, infection is a possibility and probably a viral infection with a viral syndrome is possible as well. 4. Probable pneumonia. Cultures are negative. CT scan probably reflects interstitial lung disease. 5. Neck and joint pain. ? neuropathy. 6. Chronic tiredness. ? fibromyalgia. 7. VALDES. ? Asthma flare vs pneumonitis. RECOMMENDATIONS 1. Monitor without antibiotics. 2. Monitor clinical status. Disposition depending on pulmonary recs. Nothing new to add at this point. I will see prn. Call if further input needed on weekend. Hunter Hawley MD November 04, 2016 16:58
--- NOTE | 2016-11-04 18:27 | HHI.PR ---
Subjective Remarks Doing better. CT chest shows Ground glass infiltrates, with possible Noninfectious etiology. O2 sat 95 on 2 L. PFT with restriction Objective Vital Signs Date Time Temp Pulse Resp B/P Pulse Ox O2 Delivery O2 Flow Rate FiO2 11/04/16 16:20 98.1 64 18 155/62 95 11/04/16 16:07 20 11/04/16 12:16 97.0 70 18 159/69 96 11/04/16 08:00 95 Nasal Cannula 2.00 11/04/16 07:56 97.6 73 18 167/66 95 11/04/16 04:00 98.9 79 22 189/ 97 11/04/16 03:00 17 11/04/16 00:00 97.7 81 16 183/168 81 11/03/16 21:15 97 Nasal Cannula 2.00 11/03/16 20:20 99.6 82 20 156/67 97 I/O 11/03/16 11/03/16 11/03/16 11/04/16 11/04/16 11/04/16 07:00 15:00 23:00 07:00 15:00 23:00 # Voids 1 2 # Bowel Movements 0 Result Diagram: 11/03/16 1800 Procedures No procedures performed. Objective Remarks GENERAL: This is a moderately obese elderly lady who is sitting upright in no acute distress. HEAD, EYES, EARS, NOSE, THROAT: Head normocephalic. The pupils are reactive. Tongue is moist. Throat was clear. Nasal mucosa edematous. NECK: No bruits. No thyroid enlargement. No lymphadenopathy. CHEST: Decreased excursions and resonant to percussion throughout. Coarse wheezes throughout both lung white. Prolonged expirations with occasional crackles at the bases. HEART: Heart sounds are irregular. S1 and S2 with no murmur. ABDOMEN: Abdomen obese and protuberant without masses. No organomegaly or tenderness. The bowel sounds are active. EXTREMITIES: Mild varicosities and no edema. Peripheral pulses are diminished. NEUROLOGIC: Reflexes are 1+ with no gross motor deficits. SKIN: No lesions are observed. RECTAL: Rectal exam is deferred. Assessment and Plan Assessment and Plan IMPRESSION: 1. Asthmatic bronchitis. 2. COPD. 3. Rule out interstitial lung disease. 4. History of diabetes mellitus type 2. 5. History of hypertension. 6. Rheumatoid arthritis with fibromyalgia. 7. Possible obstructive sleep apnea. Plan : 1. Wean O2 and use O2 at HS 2L and Arrange home O2 2. Solumedrol 40 mg tid. 3. Cont Symbicort 160/4.5 mcg , 2puffs bid. 4. Nebs qid , duoneb. 5. Chest X ray Monday. 6. Switch to PO Prednisone over weekend. Skyler Hoskins MD November 04, 2016 18:26
[2016-11-04] MEDS: diphenhydrAMINE HCL 25 MG CAP PO PRN (22:01)
[2016-11-04 23:04] LABS: FREE T4 1.32 NG/DL (0.76-1.46)
[2016-11-05] VITALS (10 sets, daily range): BP systolic 133–209; BP diastolic 62–90; PULSE 53–76; RESP 20; TEMP 96.3–99.2; O2SAT 96–98
[2016-11-05] MEDS: RESP: IPRATROPIUM 0.5 MG/2.5 ML NEB NEB SCH ×10 (00:39→20:41)
[2016-11-05] MEDS: methylPREDNISolone SOD SUCC 40 MG/1 ML VIAL IV SCH ×2 (05:18→14:00)
[2016-11-05] MEDS: LEVOTHYROXINE SODIUM 125 MCG TAB PO SCH (05:18)
[2016-11-05] MEDS: INSULIN ASPART SUPPLEMENTAL SCALE SQ SCH ×4 (06:14→22:31)
[2016-11-05] MEDS: CITALOPRAM HYDROBROMIDE 20 MG TAB PO SCH (07:26)
[2016-11-05] MEDS: ASPIRIN 81 MG CHEW TAB CHEW SCH (07:26)
[2016-11-05] MEDS: HYDROXYCHLOROQUINE SULFATE 200 MG TAB PO SCH (07:26)
[2016-11-05] MEDS: METOPROLOL TARTRATE 25 MG TAB PO SCH ×2 (07:27→22:29)
[2016-11-05] MEDS: guaiFENesin E.R. 600 MG TAB PO SCH ×2 (07:27→22:29)
[2016-11-05] MEDS: EZETIMIBE 10 MG TAB PO SCH (07:27)
[2016-11-05] MEDS: LISINOPRIL 20 MG TAB PO SCH ×2 (07:27→22:29)
[2016-11-05] MEDS: INSULIN DETEMIR 100 UNITS/ML VIAL SQ SCH ×2 (07:27→22:31)
[2016-11-05] MEDS: hydrALAZINE HCL 50 MG TAB PO SCH ×3 (07:27→17:28)
[2016-11-05] MEDS: DOCUSATE SODIUM 100 MG CAP PO SCH ×2 (07:28→22:35)
[2016-11-05] MEDS: SODIUM CHLORIDE 0.9% FLUSH 10 ML FLUSH IV FLUSH SCH ×2 (07:28→22:35)
[2016-11-05] MEDS: BUDESONIDE-FORMOTEROL 160/4.5 MCG INHALER INH SCH ×2 (07:28→22:35)
[2016-11-05] MEDS: HYDROmorphone HCL PF 1 MG/ML VIAL IV PUSH PRN ×2 (07:29→19:58)
--- NOTE | 2016-11-05 09:09 | HHI.PR ---
Subjective Remarks This is a pleasant 75 y/o Female with DM II, CAD, rheumatoid arthritis, COPD, who came to ER with fever, body aches, Shortness of breath seen by ID specialist with diagnosis of Fever and Leukocytosis following blood cultures, CSF culture pending, but do not reflect meningitis, probable fever non infectious etiology, probable viral syndrome, recommended Neurology Consult LE weakness, continue Vancomycin, Continue Levaquin, Follow Lyme antibody serology. today seen and discussed with nurse Miss Lopez, she has respiratory insufficiency probable related to IV fluids overload, given Lasix, and Bronchodilator, Mucolytic and Incentive spirometry. 11/01: Seen in her bedroom early in the morning her Mr. Arsen Alford by her side, states is feeling tired, discussed with nurse the patient complaint to doctor Dontfraid about neck pain and radiated to both arms, ordered MRI of the Cervical spine but refused Afebrile for the last 48 hours. has Uncontrolled Hypertension increased dosages of Hydralazine and following. 11/02: Discussed with ID specialist Doctor Dontfraid, even negative Rheumatologic tests wants to give Empiric Prednisone 10 mg BID 11/03: Developed Expiratory Wheezing, home office claim specialist consulted, had Chest CT scan, started on Solu-Medrol. 11/04: worsening weakness. 11/05: Stable improving weakness, and respiratory status, home office claim specialist following, no complaint as per patient, will be discharged on Oxygen home, continue steroids. Objective Vital Signs Date Time Temp Pulse Resp B/P Pulse Ox O2 Delivery O2 Flow Rate FiO2 11/05/16 08:29 98 Nasal Cannula 2.00 11/05/16 07:43 98.3 58 20 209/90 96 11/05/16 05:00 76 155/84 11/05/16 04:00 96.3 66 20 194/72 11/05/16 00:00 98.1 71 20 145/64 97 11/04/16 20:00 98.1 68 20 148/104 98 167/70 11/04/16 19:52 96 Nasal Cannula 2.00 11/04/16 16:20 98.1 64 18 155/62 95 11/04/16 16:07 20 11/04/16 12:16 97.0 70 18 159/69 96 I/O 11/04/16 11/04/16 11/04/16 11/05/16 11/05/16 11/05/16 07:00 15:00 23:00 07:00 15:00 23:00 Intake Total 240 ml Balance 240 ml Intake Oral 240 ml # Voids 2 2 1 Result Diagram: 11/03/16 1800 Imaging Last Impressions Chest CT 11/03/16 1745 Signed Impressions: Service Date/Time: October 18:28 - CONCLUSION: 1. Areas of ground glass opacity in the right upper lobe, left upper lobe, and right middle lobe. These are nonspecific. Typically these findings are followed with a noncontrast CT examination in three months. 2. Linear areas of suspected atelectasis at the lung bases. 3. Moderate hiatal hernia. Dre Monroe MD Lung Scan- Nuclear Medicine 10/31/16 1019 Signed Impressions: Service Date/Time: Monday, October 31, 2016 10:10 - CONCLUSION: Low probability scan for pulmonary embolism. Dre Laguerre MD Chest X-Ray 10/29/16 0000 Signed Impressions: Service Date/Time: Saturday, October 29, 2016 12:35 - CONCLUSION: No acute disease. Hector An MD Abdomen/Pelvis CT 10/27/16 0720 Signed Impressions: Service Date/Time: October 08:15 - CONCLUSION: 1. No acute finding is identified within the abdomen or pelvis to explain the clinical symptoms. Overall, there has been no significant change since the prior study. 2. There is a right ovarian cystic lesion measuring 3.1 cm. It appears simple on this noncontrast examination. This is an abnormal finding for a postmenopausal patient but this lesion has remained present and not significantly changed in size since August 2013. 3. Stable small anterior abdominal wall hernia containing a portion of a small bowel segment. There are no signs of inflammation or bowel wall thickening. 4. Stable nonacute findings include hepatomegaly with steatosis, moderate size hiatal hernia, 15 mm right adrenal gland adenoma, and severe atherosclerotic disease. Dre Gandhi MD Lumbar Puncture Fluoroscopy 10/27/16 0000 Signed Impressions: Service Date/Time: October 14:03 - CONCLUSION: Uncomplicated fluoroscopically guided lumbar puncture. Ernie Auguste MD Procedures No procedures performed. Other Results Laboratory Tests Test 4/27/10/28/16 11/02/16 11/03/16 14:02 06:19 10:10 18:00 CSF Lyme Disease DNA (PCR) NOT DETECTED Lyme Disease IgG Ab (Western NEGATIVE Blot) Lyme Disease IgG Ab 18 kDa REACTIVE Band Lyme Disease IgG Ab 23 kDa NON-REACTIVE Band Lyme Disease IgG Ab 28 kDa NON-REACTIVE Band Lyme Disease IgG Ab 30 kDa NON-REACTIVE Band Lyme Disease IgG Ab 39 kDa NON-REACTIVE Band Lyme Disease IgG Ab 41 kDa NON-REACTIVE Band Lyme Disease IgG Ab 45 kDa NON-REACTIVE Band Lyme Disease IgG Ab 58 kDa NON-REACTIVE Band Lyme Disease IgG Ab 66 kDa NON-REACTIVE Band Lyme Disease IgG Ab 93 kDa NON-REACTIVE Band Lyme Disease IgM Ab (Western NEGATIVE Blot) Lyme Disease IgM Ab 23 kDa NON-REACTIVE Band Lyme Disease IgM Ab 39 kDa NON-REACTIVE Band Lyme Disease IgM Ab 41 kDa NON-REACTIVE Band Sodium Level 139 MEQ/L Chloride Level 100 MEQ/L Carbon Dioxide Level 32.8 MEQ/L Anion Gap 6 MEQ/L Blood Urea Nitrogen 10 MG/DL Creatinine 0.75 MG/DL Estimat Glomerular Filtration 75 ML/MIN Rate Random Glucose 142 MG/DL Calcium Level 8.1 MG/DL Phosphorus Level 3.1 MG/DL Magnesium Level 2.0 MG/DL Potassium Level 4.3 MEQ/L Free Thyroxine 1.32 NG/DL Thyroid Stimulating Hormone 2.810 uIU/ML 3rd Gen Objective Remarks GENERAL: Obesity with mild to moderate respiratory distress. SKIN: Warm and dry. HEAD: Atraumatic. Normocephalic. EYES: Pupils equal and round. No scleral icterus. No injection or drainage. ENT: No nasal bleeding or discharge. Mucous membranes pink and moist. NECK: Trachea midline. No JVD. CARDIOVASCULAR: Regular rate and rhythm. RESPIRATORY: Decreased breath sounds bilateral, Mild expiratory wheezing, no crackles. GASTROINTESTINAL: Abdomen soft, non-tender, nondistended. MUSCULOSKELETAL: Extremities without clubbing, cyanosis, edema 2+ NEUROLOGICAL: Awake and alert. No focal deficits. PSYCHIATRIC: Appropriate mood and affect. Medications and IVs Current Medications Medications (Trade) Dose Ordered Sig/Amador Route Start Time Stop Time Status Last Admin (NS Flush) 2 ml UNSCH PRN IV FLUSH 10/27/16 10:45 11/01/16 05:34 (NS Flush) 2 ml BID IV FLUSH 10/27/16 21:00 11/05/16 07:28 (Tylenol) 650 mg Q4H PRN PO 10/27/16 10:45 10/29/16 21:33 (Dulcolax Supp) 10 mg DAILY PRN RECTAL 10/27/16 10:45 (Lovenox Inj) 40 mg Q24H SQ 10/27/16 11:00 11/04/16 09:37 (Xanax) 0.25 mg Q12HR PRN PO 10/27/16 11:30 11/04/16 22:01 (Aspirin Chew) 81 mg DAILY CHEW 10/28/16 09:00 11/05/16 07:26 (Symbicort 160-4.5 Inh) 1 puff Q12HR INH 10/27/16 21:00 11/05/16 07:28 (CeleXA) 40 mg DAILY PO 10/28/16 09:00 11/05/16 07:26 (Zetia) 10 mg DAILY PO 10/28/16 09:00 11/05/16 07:27 ([place] 5-325 Mg) 1 tab Q6H PRN PO 10/27/16 11:30 11/04/16 23:18 (Plaquenil) 200 mg DAILY PO 10/28/16 09:00 11/05/16 07:26 (Synthroid) 125 mcg DAILY@0600 PO 10/28/16 06:00 11/05/16 05:18 (Lopressor) 25 mg BID PO 10/27/16 21:00 11/05/16 07:27 (Colace) 100 mg BID PO 10/27/16 21:00 11/04/16 20:30 (Prinivil) 40 mg BID PO 10/27/16 11:45 11/05/16 07:27 (D50w (Vial) Inj) 25 ml UNSCH PRN IV PUSH 10/27/16 11:30 (Glucagon Inj) 1 mg UNSCH PRN OTHER 10/27/16 11:30 (Norvasc) 10 mg DAILY PO 10/28/16 09:00 11/05/16 07:26 (Dilaudid Pf Inj) 1 mg Q4H PRN IV PUSH 10/27/16 15:15 11/05/16 07:29 (Ambien) 5 mg HS PRN PO 10/28/16 15:30 11/01/16 21:57 (Zofran Inj) 4 mg Q6H PRN IV PUSH 10/28/16 15:30 11/03/16 14:51 (Benadryl) 25 mg Q6H PRN PO 10/31/16 14:00 11/04/16 22:01 (Apresoline) 50 mg TID PO 11/01/16 18:00 11/05/16 07:27 (Deltasone) 20 mg BID PO 11/02/16 21:00 Hold 11/03/16 09:54 (Mucinex Er) 600 mg BID PO 11/03/16 21:00 11/05/16 07:27 (SoluMEDROL INJ) 40 mg Q8H IV 11/03/16 14:00 11/05/16 05:18 (Levemir Inj) 30 units BID SQ 11/04/16 21:00 11/05/16 07:27 A/P Assessment and Plan 1. Fever Of unknown Origin she is been having fever for the last six months. afebrile. ID specialist following stopped antibiotics and start Empiric Steroids. 2. Rheumatoid Arthritis recommended on this admission to follow data management specialist as outpatient. 3. Respiratory Insufficiency initial CXR within normal limits, continue Bronchodilators, Mucolytic and Incentive spirometry. V/Q scan low probability for PE, CT chest giving ground glass opacity in the right upper lobe, left upper lobe, and right middle lobe. These are nonspecific. With Diagnosis of Asthmatic Bronchitis/ COPD Probable JENNIFER, recommended by Shuttle Fixer to Wean Oxygen, arrange for Home Oxygen, Solu-Medrol, CXR on Monday, switch to by mouth Prednisone during the Weekend. 4. DM II Uncontrolled continue Levemir increased to 33 units BID. sliding scale medium 5. Hypertension uncontrolled increased Hydralazine to 75 mg TID. 6. Hypothyroidism continue Hormonal replacement 7. Obesity strongly recommended diet and exercise as outpatient. Discussed in the room with patient, Nurse Miss White all questions answered to the best of my abilities. DVT prophylaxis -Lovenox. Discharge Planning Patient had multiple admissions in the past 6 months due to fever of unknown origin. If infectious work up is negative she will need to see Double Cutter as outpatient. Ezekiel Brink MD November 05, 2016 09:08
[2016-11-05] MEDS: ENOXAPARIN SODIUM 40 MG/0.4 ML SYRINGE SQ SCH (11:00)
[2016-11-05] MEDS ORDERED: RESP: ALBUTEROL 2.5 MG/IPRATROPIUM 0.5 MG NEB (PRN) NEB (14:30)
[2016-11-05] MEDS ORDERED: PILL SPLITTER OTHER PRN (14:30)
--- NOTE | 2016-11-05 14:30 | HHI.PR ---
Subjective Remarks Patient is lying comfortable in bed in NAD. On 2L oxygen. Afebrile. Objective Vital Signs Vital Signs Date Time Temp Pulse Resp B/P Pulse Ox O2 Delivery O2 Flow Rate FiO2 11/05/16 12:10 98.4 54 20 169/75 97 11/05/16 09:28 20 11/05/16 08:30 133/73 11/05/16 08:29 98 Nasal Cannula 2.00 11/05/16 07:43 98.3 58 20 209/90 96 11/05/16 05:00 76 155/84 11/05/16 04:00 96.3 66 20 194/72 11/05/16 00:00 98.1 71 20 145/64 97 11/04/16 20:00 98.1 68 20 148/104 98 167/70 11/04/16 19:52 96 Nasal Cannula 2.00 11/04/16 16:20 98.1 64 18 155/62 95 I/O 11/04/16 11/04/16 11/04/16 11/05/16 11/05/16 11/05/16 07:00 15:00 23:00 07:00 15:00 23:00 Intake Total 240 ml 600 ml Balance 240 ml 600 ml Intake Oral 240 ml 600 ml # Voids 2 2 1 3 Result Diagram: 11/03/16 1800 Other Results Last Impressions Chest CT 11/03/16 1745 Signed Impressions: Service Date/Time: October 18:28 - CONCLUSION: 1. Areas of ground glass opacity in the right upper lobe, left upper lobe, and right middle lobe. These are nonspecific. Typically these findings are followed with a noncontrast CT examination in three months. 2. Linear areas of suspected atelectasis at the lung bases. 3. Moderate hiatal hernia. Dre Monroe MD Lung Scan-V Nuclear Medicine 10/31/16 1019 Signed Impressions: Service Date/Time: Monday, October 31, 2016 10:10 - CONCLUSION: Low probability scan for pulmonary embolism. Dre Laguerre MD Chest X-Ray 10/29/16 0000 Signed Impressions: Service Date/Time: Saturday, October 29, 2016 12:35 - CONCLUSION: No acute disease. Hector An MD Abdomen/Pelvis CT 10/27/16 0720 Signed Impressions: Service Date/Time: October 08:15 - CONCLUSION: 1. No acute finding is identified within the abdomen or pelvis to explain the clinical symptoms. Overall, there has been no significant change since the prior study. 2. There is a right ovarian cystic lesion measuring 3.1 cm. It appears simple on this noncontrast examination. This is an abnormal finding for a postmenopausal patient but this lesion has remained present and not significantly changed in size since August 2013. 3. Stable small anterior abdominal wall hernia containing a portion of a small bowel segment. There are no signs of inflammation or bowel wall thickening. 4. Stable nonacute findings include hepatomegaly with steatosis, moderate size hiatal hernia, 15 mm right adrenal gland adenoma, and severe atherosclerotic disease. Dre Gandhi MD Lumbar Puncture Fluoroscopy 10/27/16 0000 Signed Impressions: Service Date/Time: October 14:03 - CONCLUSION: Uncomplicated fluoroscopically guided lumbar puncture. Ernie Auguste MD Objective Remarks GENERAL: Patient is 75 yo lying in bed in NAD SKIN: Warm and dry. HEAD: Normocephalic. EYES: No scleral icterus. No injection or drainage. NECK: Supple, trachea midline. No JVD or lymphadenopathy. CARDIOVASCULAR: Regular rate and rhythm without murmurs, gallops, or rubs. RESPIRATORY: Breath sounds equal bilaterally. No accessory muscle use. GASTROINTESTINAL: Abdomen soft, non-tender, nondistended. MUSCULOSKELETAL: No cyanosis, or edema. Neuro: Awake and alert. A/P Assessment and Plan 1. Asthmatic bronchitis. 2. COPD. 3. Ground glass opacities b/l.. infectious vs inflammatory process vs chronic lung disease 4. History of diabetes mellitus type 2. 5. History of hypertension. 6. Rheumatoid arthritis with fibromyalgia. 7. Possible obstructive sleep apnea. Plan : Continue with oxygen keep sat >92% Bronchodilators, Symbicort 160/4.5 2 puffs BID Decrease Solumedrol 40 mg BID Check CXR on Tuesday 11/07 Will need repeat Chest in 4-6 weeks as outpatient PFT as outpatient to asses severity of her lung disease. Off abx per ID monitor for signs of infectious ( Fever, WBC) GI/DVT prophylaxis per primary team. Maura Goldman MD November 05, 2016 14:30
[2016-11-05] MEDS ORDERED: RESP: ALBUTEROL 2.5 MG/IPRATROPIUM 0.5 MG NEB (SCH) NEB (16:00)
[2016-11-05] MEDS: ALPRAZolam 0.25 MG TAB PO PRN (17:29)
[2016-11-05] MEDS ORDERED: INSULIN DETEMIR 100 UNITS/ML VIAL SQ SCH (21:00)
[2016-11-05] MEDS ORDERED: methylPREDNISolone SOD SUCC 40 MG/1 ML VIAL IV SCH (21:00)
[2016-11-05] MEDS: ZOLPIDEM TARTRATE 5 MG TAB PO PRN (22:30)
[2016-11-06] VITALS (7 sets, daily range): BP systolic 124–193; BP diastolic 61–74; PULSE 62–71; RESP 20; TEMP 97.8–98.3; O2SAT 93–97
[2016-11-06] MEDS: RESP: IPRATROPIUM 0.5 MG/2.5 ML NEB NEB SCH ×7 (00:46→23:59)
[2016-11-06] MEDS: methylPREDNISolone SOD SUCC 40 MG/1 ML VIAL IV SCH ×2 (02:52→12:38)
[2016-11-06] MEDS: LEVOTHYROXINE SODIUM 125 MCG TAB PO SCH (05:15)
[2016-11-06] MEDS: ACETAMINOPHEN/HYDROcodone 325 MG/5 MG TAB PO PRN ×2 (05:15→21:58)
[2016-11-06] MEDS: INSULIN ASPART SUPPLEMENTAL SCALE SQ SCH ×2 (05:20→12:37)
[2016-11-06] MEDS: hydrALAZINE HCL 50 MG TAB PO SCH (08:07)
[2016-11-06] MEDS: METOPROLOL TARTRATE 25 MG TAB PO SCH ×2 (08:07→21:57)
[2016-11-06] MEDS: CITALOPRAM HYDROBROMIDE 20 MG TAB PO SCH (08:08)
[2016-11-06] MEDS: DOCUSATE SODIUM 100 MG CAP PO SCH ×3 (08:08→22:02)
[2016-11-06] MEDS: guaiFENesin E.R. 600 MG TAB PO SCH ×2 (08:08→21:55)
[2016-11-06] MEDS: LISINOPRIL 20 MG TAB PO SCH ×2 (08:08→21:56)
[2016-11-06] MEDS: EZETIMIBE 10 MG TAB PO SCH (08:08)
[2016-11-06] MEDS: ASPIRIN 81 MG CHEW TAB CHEW SCH (08:08)
[2016-11-06] MEDS: SODIUM CHLORIDE 0.9% FLUSH 10 ML FLUSH IV FLUSH SCH ×2 (08:09→22:02)
[2016-11-06] MEDS: INSULIN DETEMIR 100 UNITS/ML VIAL SQ SCH ×2 (08:12→21:55)
--- NOTE | 2016-11-06 08:23 | HHI.PR ---
Subjective Remarks This is a pleasant 75 y/o Female with DM II, CAD, rheumatoid arthritis, COPD, who came to ER with fever, body aches, Shortness of breath seen by ID specialist with diagnosis of Fever and Leukocytosis following blood cultures, CSF culture pending, but do not reflect meningitis, probable fever non infectious etiology, probable viral syndrome, recommended Neurology Consult LE weakness, continue Vancomycin, Continue Levaquin, Follow Lyme antibody serology. today seen and discussed with nurse Miss Lopez, she has respiratory insufficiency probable related to IV fluids overload, given Lasix, and Bronchodilator, Mucolytic and Incentive spirometry. 11/01: Seen in her bedroom early in the morning her Mr. Arsen Alford by her side, states is feeling tired, discussed with nurse the patient complaint to doctor Dontfraid about neck pain and radiated to both arms, ordered MRI of the Cervical spine but refused Afebrile for the last 48 hours. has Uncontrolled Hypertension increased dosages of Hydralazine and following. 11/02: Discussed with ID specialist Doctor Dontfraid, even negative Rheumatologic tests wants to give Empiric Prednisone 10 mg BID 11/03: Developed Expiratory Wheezing, range management specialist consulted, had Chest CT scan, started on Solu-Medrol. 11/04: worsening weakness. 11/05: Stable improving weakness, and respiratory status, range management specialist following, no complaint as per patient, will be discharged on Oxygen home, continue steroids. 11/06: Seen in her bedroom in and discussed with nurse Miss Fajardo, no nausea, vomit but states she has Loose stools will get C Diff and started on Questran to reduce Loose stools. Objective Vital Signs Date Time Temp Pulse Resp B/P Pulse Ox O2 Delivery O2 Flow Rate FiO2 11/06/16 08:10 Nasal Cannula 2.00 11/06/16 08:04 97.9 70 20 193/69 96 11/06/16 00:00 97.8 62 20 152/68 95 11/05/16 20:43 97 Nasal Cannula 2.00 11/05/16 20:00 99.2 64 20 140/62 97 11/05/16 15:40 98.0 53 20 176/70 97 11/05/16 12:10 98.4 54 20 169/75 97 11/05/16 09:28 20 11/05/16 08:30 133/73 11/05/16 08:29 98 Nasal Cannula 2.00 I/O 11/05/16 11/05/16 11/05/16 11/06/16 11/06/16 11/06/16 07:00 15:00 23:00 07:00 15:00 23:00 Intake Total 600 ml Balance 600 ml Intake Oral 600 ml # Voids 1 3 0 # Bowel Movements 0 Result Diagram: 11/03/16 1800 Imaging Last Impressions Chest CT 11/03/16 1745 Signed Impressions: Service Date/Time: October 18:28 - CONCLUSION: 1. Areas of ground glass opacity in the right upper lobe, left upper lobe, and right middle lobe. These are nonspecific. Typically these findings are followed with a noncontrast CT examination in three months. 2. Linear areas of suspected atelectasis at the lung bases. 3. Moderate hiatal hernia. Dre Monroe MD Lung Scan-V Nuclear Medicine 10/31/16 1019 Signed Impressions: Service Date/Time: Monday, October 31, 2016 10:10 - CONCLUSION: Low probability scan for pulmonary embolism. Dre Laguerre MD Chest X-Ray 10/29/16 0000 Signed Impressions: Service Date/Time: Saturday, October 29, 2016 12:35 - CONCLUSION: No acute disease. Hector An MD Abdomen/Pelvis CT 10/27/16 0720 Signed Impressions: Service Date/Time: October 08:15 - CONCLUSION: 1. No acute finding is identified within the abdomen or pelvis to explain the clinical symptoms. Overall, there has been no significant change since the prior study. 2. There is a right ovarian cystic lesion measuring 3.1 cm. It appears simple on this noncontrast examination. This is an abnormal finding for a postmenopausal patient but this lesion has remained present and not significantly changed in size since August 2013. 3. Stable small anterior abdominal wall hernia containing a portion of a small bowel segment. There are no signs of inflammation or bowel wall thickening. 4. Stable nonacute findings include hepatomegaly with steatosis, moderate size hiatal hernia, 15 mm right adrenal gland adenoma, and severe atherosclerotic disease. Dre Gandhi MD Lumbar Puncture Fluoroscopy 10/27/16 0000 Signed Impressions: Service Date/Time: October 14:03 - CONCLUSION: Uncomplicated fluoroscopically guided lumbar puncture. Ernie Auguste MD Procedures No procedures performed. Other Results Laboratory Tests Test 11/02/16 11/03/16 11/04/16 10:10 18:00 07:30 Sodium Level 139 MEQ/L Chloride Level 100 MEQ/L Carbon Dioxide Level 32.8 MEQ/L Anion Gap 6 MEQ/L Blood Urea Nitrogen 10 MG/DL Creatinine 0.75 MG/DL Estimat Glomerular Filtration 75 ML/MIN Rate Random Glucose 142 MG/DL Calcium Level 8.1 MG/DL Phosphorus Level 3.1 MG/DL Magnesium Level 2.0 MG/DL Potassium Level 4.3 MEQ/L Free Thyroxine 1.32 NG/DL Thyroid Stimulating Hormone 2.810 uIU/ML 3rd Gen Immunoglobulin E 284 kU/L Objective Remarks GENERAL: Obesity with mild to moderate respiratory distress. SKIN: Warm and dry. HEAD: Atraumatic. Normocephalic. EYES: Pupils equal and round. No scleral icterus. No injection or drainage. ENT: No nasal bleeding or discharge. Mucous membranes pink and moist. NECK: Trachea midline. No JVD. CARDIOVASCULAR: Regular rate and rhythm. RESPIRATORY: Decreased breath sounds bilateral, Mild expiratory wheezing, no crackles. GASTROINTESTINAL: Abdomen soft, non-tender, nondistended. MUSCULOSKELETAL: Extremities without clubbing, cyanosis, edema 2+ NEUROLOGICAL: Awake and alert. No focal deficits. PSYCHIATRIC: Appropriate mood and affect. Medications and IVs Current Medications Medications (Trade) Dose Ordered Sig/Amador Route Start Time Stop Time Status Last Admin (NS Flush) 2 ml UNSCH PRN IV FLUSH 10/27/16 10:45 11/01/16 05:34 (NS Flush) 2 ml BID IV FLUSH 10/27/16 21:00 11/06/16 08:09 (Tylenol) 650 mg Q4H PRN PO 10/27/16 10:45 10/29/16 21:33 (Dulcolax Supp) 10 mg DAILY PRN RECTAL 10/27/16 10:45 (Lovenox Inj) 40 mg Q24H SQ 10/27/16 11:00 11/05/16 11:00 (Xanax) 0.25 mg Q12HR PRN PO 10/27/16 11:30 11/05/16 17:29 (Aspirin Chew) 81 mg DAILY CHEW 10/28/16 09:00 11/06/16 08:08 (Symbicort 160-4.5 Inh) 1 puff Q12HR INH 10/27/16 21:00 11/05/16 22:35 (CeleXA) 40 mg DAILY PO 10/28/16 09:00 11/06/16 08:08 (Zetia) 10 mg DAILY PO 10/28/16 09:00 11/06/16 08:08 ([place] 5-325 Mg) 1 tab Q6H PRN PO 10/27/16 11:30 11/06/16 05:15 (Plaquenil) 200 mg DAILY PO 10/28/16 09:00 11/05/16 07:26 (Synthroid) 125 mcg DAILY@0600 PO 10/28/16 06:00 11/06/16 05:15 (Lopressor) 25 mg BID PO 10/27/16 21:00 11/06/16 08:07 (Colace) 100 mg BID PO 10/27/16 21:00 11/06/16 08:08 (Prinivil) 40 mg BID PO 10/27/16 11:45 11/06/16 08:08 (D50w (Vial) Inj) 25 ml UNSCH PRN IV PUSH 10/27/16 11:30 (Glucagon Inj) 1 mg UNSCH PRN OTHER 10/27/16 11:30 (Norvasc) 10 mg DAILY PO 10/28/16 09:00 11/06/16 08:07 (Dilaudid Pf Inj) 1 mg Q4H PRN IV PUSH 10/27/16 15:15 11/05/16 19:58 (Ambien) 5 mg HS PRN PO 10/28/16 15:30 11/05/16 22:30 (Zofran Inj) 4 mg Q6H PRN IV PUSH 10/28/16 15:30 11/03/16 14:51 (Benadryl) 25 mg Q6H PRN PO 10/31/16 14:00 11/04/16 22:01 (Deltasone) 20 mg BID PO 11/02/16 21:00 Hold 11/03/16 09:54 (Mucinex Er) 600 mg BID PO 11/03/16 21:00 11/06/16 08:08 (Apresoline) 75 mg TID PO 11/05/16 18:00 11/06/16 08:07 (Pill Splitter) 1 ea UNSCH PRN OTHER 11/05/16 14:30 (Levemir Inj) 33 units BID SQ 11/05/16 21:00 11/06/16 08:12 (SoluMEDROL INJ) 40 mg Q12H IV 11/06/16 02:00 11/06/16 02:52 A/P Assessment and Plan 1. Fever Of unknown Origin she is been having fever for the last six months. afebrile. ID specialist following stopped antibiotics and start Empiric Steroids. 2. Rheumatoid Arthritis recommended on this admission to follow relationship specialist as outpatient. 3. Respiratory Insufficiency initial CXR within normal limits, continue Bronchodilators, Mucolytic and Incentive spirometry. V/Q scan low probability for PE, CT chest giving ground glass opacity in the right upper lobe, left upper lobe, and right middle lobe. These are nonspecific. With Diagnosis of Asthmatic Bronchitis/ COPD Probable JENNIFER, recommended by Resource Forester to Wean Oxygen, arrange for Home Oxygen, Solu-Medrol, CXR on Monday, switched to by mouth Prednisone by range management specialist. 4. DM II Uncontrolled Expected to decrease again, cautious with Levemir will increase to 36 units at night but will need to titrate to decrease dose, and increased Insulin sliding scale to high dose. 5. Hypertension better control in am today, Systolic 157/75 mm Hg. at this time taken with nurse, increased Hydralazine to 100 mg TID and continue Clonidine as needed 6. Hypothyroidism continue Hormonal replacement 7. Obesity strongly recommended diet and exercise as outpatient. Discussed in the room with patient, Nurse Miss Fajardo all questions answered to the best of my abilities. DVT prophylaxis -Lovenox. Discharge Planning Patient had multiple admissions in the past 6 months due to fever of unknown origin. If infectious work up is negative she will need to see Obiee Lead Developer as outpatient. Ezekiel Brink MD November 06, 2016 08:23
[2016-11-06] MEDS: BUDESONIDE-FORMOTEROL 160/4.5 MCG INHALER INH SCH ×2 (08:27→22:01)
[2016-11-06] MEDS: HYDROXYCHLOROQUINE SULFATE 200 MG TAB PO SCH (08:28)
[2016-11-06] MEDS ORDERED: hydrALAZINE HCL 100 MG TAB PO SCH (09:00)
[2016-11-06] MEDS ORDERED: hydrALAZINE HCL 25 MG TAB PO ONE (09:30)
[2016-11-06] MEDS: ENOXAPARIN SODIUM 40 MG/0.4 ML SYRINGE SQ SCH (10:21)
[2016-11-06] MEDS: ALPRAZolam 0.25 MG TAB PO PRN (10:25)
[2016-11-06] MEDS: hydrALAZINE HCL 100 MG TAB PO SCH ×2 (12:37→17:34)
--- NOTE | 2016-11-06 13:04 | HHI.PR ---
Subjective Remarks Patient is lying comfortable in bed in NAD. On 2L oxygen. Afebrile. Objective Vital Signs Vital Signs Date Time Temp Pulse Resp B/P Pulse Ox O2 Delivery O2 Flow Rate FiO2 11/06/16 12:25 98.1 67 20 164/69 97 11/06/16 09:33 68 151/66 11/06/16 08:10 Nasal Cannula 2.00 11/06/16 08:04 97.9 70 20 193/69 96 11/06/16 00:00 97.8 62 20 152/68 95 11/05/16 20:43 97 Nasal Cannula 2.00 11/05/16 20:00 99.2 64 20 140/62 97 11/05/16 15:40 98.0 53 20 176/70 97 I/O 11/05/16 11/05/16 11/05/16 11/06/16 11/06/16 11/06/16 07:00 15:00 23:00 07:00 15:00 23:00 Intake Total 600 ml Balance 600 ml Intake Oral 600 ml # Voids 1 3 0 # Bowel Movements 0 Result Diagram: 11/03/16 1800 Other Results Last Impressions Chest CT 11/03/16 1745 Signed Impressions: Service Date/Time: October 18:28 - CONCLUSION: 1. Areas of ground glass opacity in the right upper lobe, left upper lobe, and right middle lobe. These are nonspecific. Typically these findings are followed with a noncontrast CT examination in three months. 2. Linear areas of suspected atelectasis at the lung bases. 3. Moderate hiatal hernia. Dre Monroe MD Lung Scan- Nuclear Medicine 10/31/16 1019 Signed Impressions: Service Date/Time: Monday, October 31, 2016 10:10 - CONCLUSION: Low probability scan for pulmonary embolism. Dre Laguerre MD Chest X-Ray 10/29/16 0000 Signed Impressions: Service Date/Time: Saturday, October 29, 2016 12:35 - CONCLUSION: No acute disease. Hector An MD Abdomen/Pelvis CT 10/27/16 0720 Signed Impressions: Service Date/Time: October 08:15 - CONCLUSION: 1. No acute finding is identified within the abdomen or pelvis to explain the clinical symptoms. Overall, there has been no significant change since the prior study. 2. There is a right ovarian cystic lesion measuring 3.1 cm. It appears simple on this noncontrast examination. This is an abnormal finding for a postmenopausal patient but this lesion has remained present and not significantly changed in size since August 2013. 3. Stable small anterior abdominal wall hernia containing a portion of a small bowel segment. There are no signs of inflammation or bowel wall thickening. 4. Stable nonacute findings include hepatomegaly with steatosis, moderate size hiatal hernia, 15 mm right adrenal gland adenoma, and severe atherosclerotic disease. Dre Gandhi MD Lumbar Puncture Fluoroscopy 10/27/16 0000 Signed Impressions: Service Date/Time: October 14:03 - CONCLUSION: Uncomplicated fluoroscopically guided lumbar puncture. Ernie Auguste MD Objective Remarks GENERAL: Patient is 75 yo lying in bed in NAD SKIN: Warm and dry. HEAD: Normocephalic. EYES: No scleral icterus. No injection or drainage. NECK: Supple, trachea midline. No JVD or lymphadenopathy. CARDIOVASCULAR: Regular rate and rhythm without murmurs, gallops, or rubs. RESPIRATORY: Breath sounds equal bilaterally. No accessory muscle use. GASTROINTESTINAL: Abdomen soft, non-tender, nondistended. MUSCULOSKELETAL: No cyanosis, or edema. Neuro: Awake and alert. A/P Assessment and Plan 1. Asthmatic bronchitis. 2. COPD. 3. Ground glass opacities b/l.. infectious vs inflammatory process vs chronic lung disease 4. History of diabetes mellitus type 2. 5. History of hypertension. 6. Rheumatoid arthritis with fibromyalgia. 7. Possible obstructive sleep apnea. Plan : Continue with oxygen keep sat >92% Bronchodilators, Symbicort 160/4.5 2 puffs BID, Mucinex 600mg BID Taper steroids- Prednisone 40mg daily Check CXR in am Will need repeat Chest in 4-6 weeks as outpatient PFT as outpatient to asses severity of her lung disease. Off abx per ID monitor for signs of infectious ( Fever, WBC) GI/DVT prophylaxis - on Lovenox 40mg daily Maura Goldman MD November 06, 2016 13:04
[2016-11-06] MEDS ORDERED: cloNIDine HCL 0.1 MG TAB PO ONE (13:15)
[2016-11-06] MEDS ORDERED: predniSONE 20 MG TAB PO SCH (13:15)
[2016-11-06] MEDS: ONDANSETRON HCL 4 MG/2 ML VIAL IV PUSH PRN (14:00)
[2016-11-06] MEDS: HYDROmorphone HCL PF 1 MG/ML VIAL IV PUSH PRN (14:08)
[2016-11-06] MEDS: CHOLESTYRAMINE 4 GM PACKET PO SCH ×2 (15:36→22:02)
[2016-11-06] MEDS ORDERED: GLUCAGON 1 MG/ML VIAL OTHER PRN (19:15)
[2016-11-06] MEDS ORDERED: DEXTROSE 50% IN WATER 50 ML VIAL(D50) IV PUSH PRN (19:15)
[2016-11-06] MEDS ORDERED: INSULIN NovoLIN REGULAR SUPPLEMENTAL SCALE SQ SCH (21:00)
[2016-11-06] MEDS ORDERED: predniSONE 20 MG TAB PO ONE (21:00)
[2016-11-06] MEDS ORDERED: INSULIN DETEMIR 100 UNITS/ML VIAL SQ SCH (21:00)
[2016-11-06] MEDS: MEDIUM DOSE INSULIN NOVOLIN REGULAR SUPPLEMENTAL SCALE SQ SCH (21:55)
[2016-11-06] MEDS: ZOLPIDEM TARTRATE 5 MG TAB PO PRN (21:56)
[2016-11-07] VITALS: BP 140/73; PULSE 85; RESP 20; TEMP 97.9; O2SAT 97
[2016-11-07] MEDS: HYDROmorphone HCL PF 1 MG/ML VIAL IV PUSH PRN (00:36)
[2016-11-07 04:00] VITALS: BP 137/71; PULSE 85; RESP 20; TEMP 97.4; O2SAT 93
[2016-11-07] MEDS: RESP: IPRATROPIUM 0.5 MG/2.5 ML NEB NEB SCH ×3 (04:00→10:46)
[2016-11-07] MEDS: MEDIUM DOSE INSULIN NOVOLIN REGULAR SUPPLEMENTAL SCALE SQ SCH ×2 (06:07→11:00)
[2016-11-07] MEDS: LEVOTHYROXINE SODIUM 125 MCG TAB PO SCH (06:07)
[2016-11-07] MEDS: CHOLESTYRAMINE 4 GM PACKET PO SCH (06:09)
[2016-11-07 08:28] VITALS: BP 190/88; PULSE 73; RESP 19; TEMP 98; O2SAT 95
[2016-11-07] MEDS: INSULIN DETEMIR 100 UNITS/ML VIAL SQ SCH (09:00)
[2016-11-07] MEDS: DOCUSATE SODIUM 100 MG CAP PO SCH ×2 (09:00→09:17)
[2016-11-07] MEDS ORDERED: predniSONE 20 MG TAB PO SCH (09:00)
--- NOTE | 2016-11-07 09:11 | RADRPT ---
EXAM DATE/TIME: 11/07/2016 08:57 [facility] COMPARISON: CHEST PA & LAT, October 29, 2016, 12:35. INDICATIONS : Infiltrates. Patient has cough and congestion. MEDICAL HISTORY : Cardiovascular disease. Hypertension SURGICAL HISTORY : Coronary artery stent. ENCOUNTER: Subsequent ACUITY: 2 weeks PAIN SCORE: 0/10 LOCATION: Bilateral chest FINDINGS: PA and lateral views of the chest demonstrate minimal scattered interstitial densities. No consolidat ion or pleural effusion. Borderline cardiomegaly. The cardiomediastinal contours are unremarkable. O sseous structures are intact. Scoliosis. CONCLUSION: 1. Minimal scattered interstitial densities in the lower lobes, slightly improved. 2. Borderline cardiomegaly. Gutierrez Walsh MD on November 07, 2016 at 9:06 Board Certified Radiologist. This report was verified electronically.
[2016-11-07] MEDS: BUDESONIDE-FORMOTEROL 160/4.5 MCG INHALER INH SCH (09:16)
[2016-11-07] MEDS: hydrALAZINE HCL 100 MG TAB PO SCH ×2 (09:17→12:05)
[2016-11-07] MEDS: METOPROLOL TARTRATE 25 MG TAB PO SCH (09:17)
[2016-11-07] MEDS: guaiFENesin E.R. 600 MG TAB PO SCH (09:17)
[2016-11-07] MEDS: HYDROXYCHLOROQUINE SULFATE 200 MG TAB PO SCH (09:17)
[2016-11-07] MEDS: CITALOPRAM HYDROBROMIDE 20 MG TAB PO SCH (09:17)
[2016-11-07] MEDS: EZETIMIBE 10 MG TAB PO SCH (09:18)
[2016-11-07] MEDS: ASPIRIN 81 MG CHEW TAB CHEW SCH (09:18)
[2016-11-07] MEDS: LISINOPRIL 20 MG TAB PO SCH (09:18)
[2016-11-07] MEDS: SODIUM CHLORIDE 0.9% FLUSH 10 ML FLUSH IV FLUSH SCH (09:19)
[2016-11-07] MEDS ORDERED: hydrALAZINE PO (10:15)
[2016-11-07] MEDS ORDERED: HYDR-3516 PO (10:15)
[2016-11-07] MEDS ORDERED: LANTINJ SQ (10:15)
[2016-11-07] MEDS: ENOXAPARIN SODIUM 40 MG/0.4 ML SYRINGE SQ SCH (12:04)
[2016-11-07] MEDS: ONDANSETRON HCL 4 MG/2 ML VIAL IV PUSH PRN (12:11)
--- NOTE | 2016-11-07 12:23 | HHI.PR ---
Subjective Remarks Doing better. CT chest shows Ground glass infiltrates, with possible Noninfectious etiology. Off O2 sat 95. PFT with restriction Objective Vital Signs Date Time Temp Pulse Resp B/P Pulse Ox O2 Delivery O2 Flow Rate FiO2 11/07/16 10:48 21 11/07/16 08:28 98.0 73 19 190/88 95 11/07/16 04:00 97.4 85 20 137/71 93 11/07/16 00:00 97.9 85 20 140/73 97 11/06/16 23:43 98.1 71 20 145/74 93 11/06/16 19:16 96 21 11/06/16 16:01 98.3 64 20 124/61 94 11/06/16 12:25 98.1 67 20 164/69 97 I/O 11/06/16 11/06/16 11/06/16 11/07/16 11/07/16 11/07/16 06:59 14:59 22:59 06:59 14:59 22:59 Intake Total 480 ml Balance 480 ml Intake Oral 480 ml # Voids 3 4 Result Diagram: 11/03/16 1800 Procedures No procedures performed. Objective Remarks GENERAL: This is a moderately obese elderly lady who is sitting upright in no acute distress. HEAD, EYES, EARS, NOSE, THROAT: Head normocephalic. The pupils are reactive. Tongue is moist. Throat was clear. Nasal mucosa edematous. NECK: No bruits. No thyroid enlargement. No lymphadenopathy. CHEST: Decreased excursions and few wheezes throughout both lung white. Prolonged expirations with occasional crackles at the bases. HEART: Heart sounds are irregular. S1 and S2 with no murmur. ABDOMEN: Abdomen obese and protuberant without masses. No organomegaly or tenderness. The bowel sounds are active. EXTREMITIES: Mild varicosities and no edema. Peripheral pulses are diminished. NEUROLOGIC: Reflexes are 1+ with no gross motor deficits. SKIN: No lesions are observed. RECTAL: Rectal exam is deferred. Assessment and Plan Assessment and Plan IMPRESSION: 1. Asthmatic bronchitis. 2. COPD. 3. Rule out interstitial lung disease. 4. History of diabetes mellitus type 2. 5. History of hypertension. 6. Rheumatoid arthritis with fibromyalgia. 7. Possible obstructive sleep apnea. Plan : 1. D/C IV meds. 2. Prednisone 30 mg daily and taper over 3 weeks. 3. Cont Symbicort 160/4.5 mcg , 2puffs bid. 4. Nebs qid , duoneb. 5. D/C O2 6. Will go home and I will F/U as OP in 3 weeks Skyler Hoskins MD November 07, 2016 12:23
[2016-11-07] MEDS ORDERED: PRED5TAB PO (12:33)
[2016-11-07] MEDS ORDERED: PRED20 PO (12:33)
--- NOTE | 2016-11-07 12:35 | HHI.FF ---
Face to Face Verification Diagnosis: (1) Diabetes mellitus (2) Insulin dependent diabetes mellitus (3) Dyspnea (4) Shortness of breath (5) Fever Physical Therapy Order: Evaluate and Treat, Improve ambulation, Strength and gait training Home Health Nursing Order: Medical education Signs/symptoms of disease process Diabetic education Nursing assessment with vital signs I have seen patient Elidia Alford on 11/07/16. My clinical findings support the need for the requested home health care services because: Ltd mobility - disease progression Patient has SOB I certify that my clinical findings support that this patient is homebound because: Unsteady gait/balance Poor cardiac reserve Noris Marquez MD November 07, 2016 12:35
--- NOTE | 2016-11-07 12:36 | HHI.DCPOC ---
Discharge Care Plan Diagnosis: (1) Interstitial lung disease (2) Fever of unknown origin (FUO) (3) Dyspnea (4) Insulin dependent diabetes mellitus Goals to Promote Your Health * To prevent worsening of your condition and complications * To maintain your health at the optimal level Directions to Meet Your Goals Take your medications as prescribed Follow your dietary instruction Follow activity as directed Keep your appointments as scheduled Take your immunizations and boosters as scheduled If your symptoms worsen call your PCP, if no PCP go to Urgent Care Center or Emergency Room Smoking is Dangerous to Your Health. Avoid second hand smoke Call the 24-hour hour crisis hotline for domestic abuse at Noris Marquez MD November 07, 2016 12:36
[2016-11-07 12:52] VITALS: BP 177/76; PULSE 63; RESP 18; TEMP 97.7; O2SAT 93
[2016-11-07 13:03] VITALS: BP 151/72
--- NOTE | 2016-11-07 13:41 | HHI.DS ---
Discharge Summary Admission Date Oct 27, 2016 at 10:32 Discharge Date: November 07, 2016 Admitting Diagnosis sepsis, leukocytosis, febrile illness (1) Fever of unknown origin (FUO) ICD Code: R50.9 Diagnosis: Principal (2) Interstitial lung disease ICD Code: J84.9 Diagnosis: Principal (3) Asthma ICD Code: J45.909 Diagnosis: Principal (4) Insulin dependent diabetes mellitus ICD Code: E11.9 Diagnosis: Secondary (5) Dyspnea ICD Code: R06.00 Diagnosis: Principal (6) Uncontrolled hypertension ICD Code: I10 Diagnosis: Secondary Procedures see hospital course. Brief History - From Admission This is a 75-year-old female with past medical history of type 2 diabetes, coronary artery disease, rheumatoid arthritis, and asthma who presented with fever, body aches, and shortness of breathing. Patient was admitted recently at [facility] a couple week ago with similar symptoms. She stated that when she was discharged from the hospital she was doing very well then woke up this morning with severe body aches and fever. Patient stated last night she did have shortness of breathing and a cough that lasted for couple hours so she took extra doses of her Symbicort and stated that resolved. She denied any headache, visual changes, able to move her neck without difficulty. She does admit having chronic neck pain. She feels nauseated and denies any emesis. Patient stated for the past 6 months she had similar symptoms about 5 times and nobody seems to be able to get her better. CBC/BMP: 11/03/16 1800 Imaging Last Impressions Chest X-Ray 11/07/16 0000 Signed Impressions: Service Date/Time: Monday, November 07, 2016 08:57 - CONCLUSION: 1. Minimal scattered interstitial densities in the lower lobes, slightly improved. 2. Borderline cardiomegaly. Gutierrez Walsh MD Chest CT 11/03/16 1745 Signed Impressions: Service Date/Time: October 18:28 - CONCLUSION: 1. Areas of ground glass opacity in the right upper lobe, left upper lobe, and right middle lobe. These are nonspecific. Typically these findings are followed with a noncontrast CT examination in three months. 2. Linear areas of suspected atelectasis at the lung bases. 3. Moderate hiatal hernia. Dre Monroe MD Lung Scan-V Nuclear Medicine 10/31/16 1019 Signed Impressions: Service Date/Time: Monday, October 31, 2016 10:10 - CONCLUSION: Low probability scan for pulmonary embolism. Dre Laguerre MD Abdomen/Pelvis CT 10/27/16 0720 Signed Impressions: Service Date/Time: October 08:15 - CONCLUSION: 1. No acute finding is identified within the abdomen or pelvis to explain the clinical symptoms. Overall, there has been no significant change since the prior study. 2. There is a right ovarian cystic lesion measuring 3.1 cm. It appears simple on this noncontrast examination. This is an abnormal finding for a postmenopausal patient but this lesion has remained present and not significantly changed in size since August 2013. 3. Stable small anterior abdominal wall hernia containing a portion of a small bowel segment. There are no signs of inflammation or bowel wall thickening. 4. Stable nonacute findings include hepatomegaly with steatosis, moderate size hiatal hernia, 15 mm right adrenal gland adenoma, and severe atherosclerotic disease. Dre Gandhi MD Lumbar Puncture Fluoroscopy 10/27/16 0000 Signed Impressions: Service Date/Time: October 14:03 - CONCLUSION: Uncomplicated fluoroscopically guided lumbar puncture. Ernie Auguste MD PE at Discharge GENERAL: in NAD CARDIOVASCULAR: Regular rate and rhythm without murmurs, gallops, or rubs. RESPIRATORY: Breath sounds equal bilaterally. No accessory muscle use. GASTROINTESTINAL: Abdomen soft, non-tender, nondistended. MUSCULOSKELETAL: No cyanosis, or edema. Joints are within normal limits. BACK: Nontender without obvious deformity. No CVA tenderness. Pt update on day of discharge f/u for FUO and SOB. Breathing has improved and only occurs with exertion. Denied any cough. She remains afebrile. No other concerns. Hospital Course 1. Fever Of unknown Origin she is been having fever for the last six months. ID specialist following and she was treated empirically with antibiotics that was stopped on 11/03. patient did well on antibiotics. LP done and that was negative. ? autoimmune. 2. Rheumatoid Arthritis per patient she was dx with this but work up in hospital negative. education given and patient told to f/u with PCP to see a Video Operator. 3.Dyspnea initial CXR within normal limits, continue Bronchodilators, Mucolytic and Incentive spirometry. V/Q scan low probability for PE, CT chest giving ground glass opacity in the right upper lobe, left upper lobe, and right middle lobe. These are nonspecific. Podiatric Medicine Professor consulted and stated patient may have Asthmatic Bronchitis/ COPD Probable [facility] interstitial lung disease Patient put on prednisone and told to continue home regimen. Per Pulm taper steroids for 3 weeks. f/u as outpatient. will need repeat imaging and PFTs with Podiatric Medicine Professor. 4. DM II Uncontrolled uncontrolled due to steroids. at home on Lantus 50 units BID. will increase Lantus 40 units BID and increase by 2 units if fasting BS is > 150 every 2 days. Patient told need to see PCP in regards to adjustment, 5. Hypertension, uncontrolled and labile. hydralazine was increase and home regimen resumed. f/u with PCP. 6. Hypothyroidism continue to levothyroxine 7. Obesity strongly recommended diet and exercise as outpatient. Pt Condition on Discharge: Good Discharge Disposition: Disch w/ Home Health Serv Discharge Time: > 30 minutes Discharge Instructions DIET: Follow Instructions for: Heart Healthy Diet, Diabetic Diet Activities you can perform: Regular-No Restrictions Follow up Referrals: PCP Follow-up - 1 Week Pulmonology - 3 Weeks New Medications: Prednisone (Prednisone) 20 Mg Tab 30 MG PO DIRECTED take 1.5 tab (30 mg) for 6 days then 1 tab (20 mg) for 6 days then 0.5 tab (10 mg) for 6 days then take 5mg tab for 4 days interstitual lung disease #18 Ref 0 TAB Prednisone (Prednisone) 5 Mg Tab 5 MG PO DAILY start after completing the 20 mg tablets. interstitual lung disease #4 Ref 0 TAB ([hydrALAZINE]) 100 MG TAB 100 MG PO TID hypertension #90 Ref 0 TAB Changed Medications: Insulin Glargine Inj (Lantus Solostar Pen Inj) 300 Unit/3 Ml Pen 40 UNITS SQ BID increase by 2 units every day if fasting blood sugar is above 150 until you return to your home dose. You will need to see your primary care doctor for adjustments, Blood Sugar Management #30 Ref 0 PEN (Changed from: 50 UNITS) Continued Medications: Albuterol 8.5 GM Inh (Proair Hfa 8.5 GM Inh) 90 Mcg/Act Aer 1 PUFF INH Q4H 108 mcg/actuation PRN SHORTNESS OF BREATH #1 Ref 0 INHALER Albuterol Neb (Albuterol Neb) 2.5 Mg/3 Ml Neb 2.5 MG NEB QID NEB Breathing Treatment #60 Ref 0 NEBULE Alprazolam (Alprazolam) 0.25 Mg Tab 0.25 MG PO Q12HR PRN ANXIETY Ref 0 TAB Aspirin (Aspirin Children's) 81 Mg Chew 81 MG CHEW DAILY Ref 0 TAB Budesonide-Formoterol Inh (Symbicort Inh) 160-4.5 Mcg/Act Aero 1 PUFF INH Q12HR #1 Ref 0 INHALER Citalopram (Citalopram) 20 Mg Tab 40 MG PO DAILY Control Depression #30 Ref 0 TAB Docusate Sodium (Dok) 100 Mg Cap 100 MG PO BID constipation #60 CAP Ezetimibe (Zetia) 10 Mg Tab 10 MG PO DAILY #30 Ref 0 TAB Felodipine ER (Felodipine ER) 10 mg Tree 10 MG PO DAILY Blood Pressure Management #30 Ref 0 TAB Hydrocodone-Acetaminophen (Hydrocodone-Acetaminophen) 5-325 mg Tab 1 TAB PO Q6H PRN PAIN #20 Ref 0 TAB (This prescription has been renewed) Hydroxychloroquine (Hydroxychloroquine) 200 Mg Tab 200 MG PO DAILY Takw with food #30 Ref 0 TAB Levothyroxine (Levothyroxine) 112 Mcg Tab 125 MCG PO DAILY #30 Ref 0 TAB Metoprolol Tartrate (Metoprolol Tartrate) 25 Mg Tab 25 MG PO BID htn #60 TAB Quinapril (Quinapril) 40 Mg Tab 40 MG PO BID #30 Ref 0 TAB ([Astelin Nasal]) Discontinued Medications: Hydralazine (Hydralazine) 10 Mg Tab 10 MG PO TID Take with a meal Blood Pressure Management Ref 0 TAB Levofloxacin (Levaquin) 750 Mg Tab 750 MG PO DAILY Infection #7 Ref 0 TAB Methylprednisolone Dosepak (Medrol Dosepak) 4 Mg Dspk 4 MG PO DIRECTED Per Pharmacist direction #1 Ref 0 DSPK Noris Marquez MD November 07, 2016 13:41
== END 2016-11-07 14:10 | disposition home health service (06) | DRG 864 ==
LOC: NEPE 06:59 → NEDA 10:32 → N05B 14:51
PROVIDERS: ADMIT Family Medicine; ATTEND Family Medicine
PROC: 009U3ZX Drainage of Spinal Canal, Percutaneous Approach, Diagnostic (ICD-10-PCS; principal; 2016-10-27)
PROC: B01BZZZ Fluoroscopy of Spinal Cord (ICD-10-PCS; 2016-10-27)
DX: R50.9 Fever, unspecified (principal); J84.9 Interstitial pulmonary disease, unspecified; R65.10 Systemic inflammatory response syndrome (SIRS) of non-infectious origin without acute organ dysfunction; E11.65 Type 2 diabetes mellitus with hyperglycemia; Z68.41 Body mass index [BMI] 40.0-44.9, adult; J44.1 Chronic obstructive pulmonary disease with (acute) exacerbation; G62.9 Polyneuropathy, unspecified; M06.9 Rheumatoid arthritis, unspecified; E66.01 Morbid (severe) obesity due to excess calories; I25.10 Atherosclerotic heart disease of native coronary artery without angina pectoris; I10 Essential (primary) hypertension; M79.7 Fibromyalgia; E03.9 Hypothyroidism, unspecified; K21.9 Gastro-esophageal reflux disease without esophagitis; E78.5 Hyperlipidemia, unspecified; J45.909 Unspecified asthma, uncomplicated; M48.06 Spinal stenosis, lumbar region; D35.01 Benign neoplasm of right adrenal gland; G47.33 Obstructive sleep apnea (adult) (pediatric); M19.90 Unspecified osteoarthritis, unspecified site; F32.9 Major depressive disorder, single episode, unspecified; F41.9 Anxiety disorder, unspecified; Z79.4 Long term (current) use of insulin; Z82.3 Family history of stroke; Z88.0 Allergy status to penicillin; Z88.1 Allergy status to other antibiotic agents; Z88.5 Allergy status to narcotic agent; Z91.012 Allergy to eggs; Z91.013 Allergy to seafood; Z95.5 Presence of coronary angioplasty implant and graft; Z96.653 Presence of artificial knee joint, bilateral
CPT/HCPCS: 62270; 71010; 71020; 71250; 74176; 76937; 77003; 78582; 80048; 80053; 80202; 81001; 82550; 82785; 82805; 82945; 82948; 83605; 83690; 83735; 84100; 84132; 84157; 84439; 84443; 84484; 85025; 85027; 85379; 85610; 85652; 85730; 86038; 86403; 86430; 86617; 87040; 87070; 87205; 87529; 87801; 87804; 89051; 93005; 94150; 94620; 94640; 94664; 96361; 96374; 96375; A9540; A9567; J1170; J1580; J1650; J1815; J1940; J1956; J2405; J2920; J2930; J3370; J7030; J7040; J7512; J7613; J7644; P9612

== ENCOUNTER 2016-12-09 22:57 | Inpatient (IN) | payer MEDICARE, BC ==
[~2016-12-09] VITALS: Ht 149.9 cm; Wt 96.1 kg
[~2016-12-09 22:57] MED LIST changes: -HYDR10TA23 PO; -LEVA750T PO; -MEDR4PAK PO; +PRED20 PO; +PRED5TAB PO; +hydrALAZINE PO
[2016-12-09 23:19] VITALS: BP 173/72; PULSE 93; RESP 20; TEMP 99.5; O2SAT 96
[2016-12-09 23:21] VITALS: BP 173/72; PULSE 95; RESP 14; TEMP 99.5; O2SAT 99
[2016-12-09] MEDS ORDERED: LANTINJ SQ (23:29)
[2016-12-09] MEDS ORDERED: SODIUM CHLOR 0.9% 1000 ML INJ 1,000 ML IV ONE (23:36)
[2016-12-10] VITALS (11 sets, daily range): BP systolic 104–201; BP diastolic 62–81; PULSE 73–105; RESP 14–24; TEMP 97–101.7; O2SAT 94–100
[2016-12-10] MEDS ORDERED: HYDROmorphone HCL PF 1 MG/ML VIAL IV PUSH ONE (00:15)
[2016-12-10 00:27] LABS: BASOPHIL % 0.2 % (0.0-2.0); EOSINOPHIL # 0.1 TH/MM3 (0-0.4); EOSINOPHIL % 0.6 % (0.0-4.0); HEMATOCRIT 35.8 % (35.0-46.0); HEMO FLAGS DIFF FINAL; LYMPH % 3.3 % (9.0-44.0); LYMPHOCYTE # 0.5 TH/MM3 (1.0-4.8); MEAN CELL VOLUME 80.2 FL (80.0-100.0); MEAN CORPUSCULAR HEMOGLOBIN 25.3 PG (27.0-34.0); MEAN CORPUSCULAR HGB CONC 31.6 % (32.0-36.0); MONO % 5.1 % (0.0-8.0); NEUT % 90.8 % (16.0-70.0); PLATELET COUNT 440 TH/MM3 (150-450); RED BLOOD COUNT 4.46 MIL/MM3 (4.00-5.30); RED CELL DISTRIBUTION WIDTH 17.3 % (11.6-17.2); WHITE BLOOD COUNT 16.5 TH/MM3 (4.0-11.0)
--- NOTE | 2016-12-10 00:28 | RADRPT ---
EXAM DATE/TIME: 12/10/2016 00:09 [facility] COMPARISON: CHEST SINGLE AP, October 27, 2016, 7:34. INDICATIONS : pain and stiffness to neck and back, weakness in both legs today. MEDICAL HISTORY : Diabetes mellitus type II. Hypertension Hypothyroidism. Hiatal hernia SURGICAL HISTORY : Hysterectomy. Colostomy. Cardiac stent ENCOUNTER: Initial ACUITY: 1 day PAIN SCORE: 7/10 LOCATION: Bilateral chest FINDINGS: A single view of the chest demonstrates the lungs to be symmetrically aerated without evidence of mas s, infiltrate or effusion. The cardiomediastinal contours are unremarkable. Osseous structures are intact. CONCLUSION: No acute disease. Stephen Kincaid MD on December 10, 2016 at 0:26 Board Certified Radiologist. This report was verified electronically.
[2016-12-10] MEDS ORDERED: AZTREONAM INJ 2,000 MG in SODIUM CHLORIDE 0.9% INJ 100 ML IV STA (00:36)
[2016-12-10] MEDS ORDERED: VANCOMYCIN INJ 1,000 MG in SODIUM CHLOR 0.9% 250 ML INJ 250 ML IV STA (00:36)
[2016-12-10] MEDS ORDERED: metroNIDAZOLE 500 MG INJ 100 ML IV STA (00:36)
[2016-12-10 00:41] LABS: AST (GOT) 24 U/L (15-37); BICARBONATE 26.8 MEQ/L (21.0-32.0); BLOOD UREA NITROGEN 15 MG/DL (7-18); CHLORIDE 97 MEQ/L (98-107); GLOMERULAR FILTRATION RATE 48 ML/MIN (>89); MAGNESIUM 1.6 MG/DL (1.5-2.5); POTASSIUM 3.2 MEQ/L (3.5-5.1); SODIUM (NA) 138 MEQ/L (136-145)
[2016-12-10 00:42] LABS: ANION GAP 14 MEQ/L (5-15)
[2016-12-10 00:47] LABS: ALKALINE PHOSPHATASE 81 U/L (45-117); ALT (GPT) 31 U/L (10-53); CREATINE KINASE 141 U/L (26-192); TOTAL BILIRUBIN ADULT 0.2 MG/DL (0.2-1.0)
--- NOTE | 2016-12-10 00:58 | PD ---
HPI Chief Complaint: Pain: Acute or Chronic Time Seen by Provider: 23:36 Travel History International Travel<30 days: No Contact w/Intl Traveler<30days: No Traveled to known affect area: No History of Present Illness HPI 75-year-old female presents with diffuse body aches and fever that is been present over the past couple of days. Quality pain is sharp. Severity is severe. Pain is worse with movement. She denies other modifying factors. She denies other specific complaints other than nasal congestion. She states she recently had similar symptoms when she had a stay in the hospital and she got antibiotics. She presents by ambulance. She is a poor historian which limits history PFSH Past Medical History Narrative Medical By records Hx Anticoagulant Therapy: Yes (ASA 325MG DAILY) Arthritis: Yes Asthma: Yes Anxiety: Yes Depression: Yes Heart Rhythm Problems: Yes (Irregular) Cancer: No Cardiac Catheterization: Yes Cardiovascular Problems: Yes (Stent) High Cholesterol: Yes Chest Pain: No Congestive Heart Failure: No COPD: No Cerebrovascular Accident: No Diabetes: Yes Patient Takes Glucophage: No Diminished Hearing: No Diverticulitis: Yes Endocrine: Yes Gastrointestinal Disorders: Yes (Diverticulatis, Abdominal Surgery) GERD: Yes Genitourinary: No Headaches: No Hepatitis: No Hiatal Hernia: Yes Hypertension: Yes Immune Disorder: No Implanted Vascular Access Dvce: Yes Kidney Stones: No Medical other: Yes (POLYPS) Musculoskeletal: Yes (Arthritis, Neck) Neurologic: Yes (Neuropathy ) Psychiatric: Yes Reproductive: No Immunizations Current: No Migraines: No Renal Failure: No Seizures: No Sleep Apnea: No Thyroid Disease: Yes (Hypothyrodism) Ulcer: Yes Influenza Vaccination: No Menopausal: Yes : 4 Para: 4 Miscarriage: 0 : 0 Past Surgical History Abdominal Surgery: Yes (COLOSTOMY, REVERSAL OF COLOSTOMY) AICD: No Body Medical Devices: Cardiac stent, Bilateral knees Cardiac Surgery: Yes (CORONARY STENTS) Coronary Stent: Yes Ear Surgery: No Endocrine Surgery: No Eye Surgery: No Genitourinary Surgery: No Gynecologic Surgery: Yes (HYSTERECTOMY) Hysterectomy: Yes Joint Replacement: Yes (BETZAIDA. KNEES) Neurologic Surgery: No Oral Surgery: No Pacemaker: No Thoracic Surgery: No Other Surgery: Yes (Abdominal, Bilateral knee, Stent) Social History Alcohol Use: No Tobacco Use: No Substance Use: No Allergies-Medications (Allergen,Severity, Reaction): Coded Allergies: Egg Allergy (Verified Allergy, Severe, DYSPNEA, SWELLING, 12/09/16) WHEN MIXED WITH CULTURES FOR IMMUNIZATIONS Erythromycin (Verified Allergy, Severe, HIVES, TROUBLE BREATHING, 12/09/16) Iodine (Verified Allergy, Severe, SWELLING, 12/09/16) Molds and Smuts (Verified Allergy, Severe, ITCHING, 12/09/16) DYSPNEA Penicillin (Verified Allergy, Severe, STOPS BREATHING, 12/09/16) Seafood (Verified Allergy, Severe, HIVES, 12/09/16) Sulfa (Verified Allergy, Severe, STOPS BREATHING, "SULFA POISONING", ) Metformin (Verified Adverse Reaction, Severe, DIARRHEA, GASTRIC CRAMPING, 12/09/16) Morphine (Verified Adverse Reaction, Unknown, STATES MAKES HER "TOO SLEEPY " - REFUSES, 12/09/16) Uncoded Allergies: MERCURY (Allergy, Severe, 09/10/16) Reported Meds & Prescriptions Reported Meds & Active Scripts Active Prednisone 5 Mg Tab 5 Mg PO DAILY start after completing the 20 mg tablets. Prednisone 20 Mg Tab 30 Mg PO DIRECTED take 1.5 tab (30 mg) for 6 days then 1 tab (20 mg) for 6 days then 0.5 tab (10 mg) for 6 days then take 5mg tab for 4 days [hydrALAZINE] 100 MG Tab 100 Mg PO TID Hydrocodone-Acetaminophen 5-325 mg Tab 1 Tab PO Q6H PRN Dok (Docusate Sodium) 100 Mg Cap 100 Mg PO BID Reported Lantus Solostar Pen Inj (Insulin Glargine) 300 Unit/3 Ml Pen 55 Units SQ BID Proair Hfa 8.5 GM Inh (Albuterol Sulfate) 90 Mcg/Act Aer 1 Puff INH Q4H PRN 108 mcg/actuation Hydroxychloroquine (Hydroxychloroquine Sulfate) 200 Mg Tab 200 Mg PO DAILY Takw with food [Astelin Nasal] Aspirin Children's (Aspirin) 81 Mg Chew 81 Mg CHEW DAILY Symbicort Inh (Budesonide/Formoterol Fumarate) 160-4.5 Mcg/Act Aero 1 Puff INH Q12HR Albuterol Neb (Albuterol Sulfate) 2.5 Mg/3 Ml Neb 2.5 Mg NEB QID NEB Alprazolam 0.25 Mg Tab 0.25 Mg PO Q12HR PRN Citalopram (Citalopram Hydrobromide) 20 Mg Tab 40 Mg PO DAILY Zetia (Ezetimibe) 10 Mg Tab 10 Mg PO DAILY Levothyroxine (Levothyroxine Sodium) 112 Mcg Tab 125 Mcg PO DAILY Felodipine ER (Felodipine) 10 mg Tree 10 Mg PO DAILY Review of Systems Except as stated in HPI: all other systems reviewed are Neg Physical Exam Exam Limitations: Poor Historian Narrative GENERAL: Well-nourished, well-developed patient. Uncomfortable SKIN: Warm and dry. HEAD: Normocephalic and atraumatic. EYES: No injection or drainage. ENT: No nasal drainage noted. NECK: Supple, trachea midline. No meningeal signs CARDIOVASCULAR: Regular rate and rhythm RESPIRATORY: Breath sounds equal bilaterally. No accessory muscle use. GASTROINTESTINAL: Abdomen soft, non-tender, nondistended. EXTREMITIES: Diffusely tender to touch throughout all extremities without specific joint pain NEUROLOGICAL: Awake and alert. Motor and sensory grossly within normal limits. Normal speech. Data Data Last Documented VS Vital Signs Date Time Temp Pulse Resp B/P Pulse Ox O2 Delivery O2 Flow Rate FiO2 12/10/16 01:22 89 18 174/70 98 Room Air 12/10/16 00:03 101.7 Orders Electrocardiogram (12/09/16 23:36) Complete Blood Count With Diff (12/09/16 23:36) Comprehensive Metabolic Panel (12/09/16 23:36) Prothrombin Time / Inr (Pt) (12/09/16 23:36) Act Partial Throm Time (Ptt) (12/09/16 23:36) Lactic Acid Sepsis Protocol (12/09/16 23:36) Magnesium (Mg) (12/09/16 23:36) Phosphorus (Po4) (12/09/16 23:36) Ckmb (Isoenzyme) Profile (12/09/16 23:36) Troponin I (12/09/16 23:36) Urinalysis - C+S If Indicated (12/09/16 23:36) Influenzae A/B Antigen (12/09/16 23:36) Blood Culture (12/09/16 23:36) Chest, Single Ap (12/09/16 23:36) Blood Glucose (12/09/16 23:36) Ecg Monitoring (12/09/16 23:36) Iv Access Insert/Monitor (12/09/16 23:36) Oximetry (12/09/16 23:36) Sodium Chlor 0.9% 1000 Ml Inj (Ns 1000 M (12/09/16 23:36) Hydromorphone Pf Inj (Dilaudid Pf Inj) (12/10/16 00:15) Vancomycin Inj (Vancomycin Inj) (12/10/16 00:36) Aztreonam Inj (Azactam Inj) (12/10/16 00:36) Metronidazole 500 Mg Inj (Flagyl 500 Mg (12/10/16 00:36) CKMB (12/09/16 23:46) CKMB% (12/09/16 23:46) Acetaminophen (Tylenol) (12/10/16 01:15) Admit Order (Ed Use Only) (12/10/16 01:24) Labs Laboratory Tests Test 12/09/16 12/10/16 12/10/16 23:46 00:45 01:10 White Blood Count 16.5 TH/MM3 Red Blood Count 4.46 MIL/MM3 Hemoglobin 11.3 GM/DL Hematocrit 35.8 % Mean Corpuscular Volume 80.2 FL Mean Corpuscular Hemoglobin 25.3 PG Mean Corpuscular Hemoglobin 31.6 % Concent Red Cell Distribution Width 17.3 % Platelet Count 440 TH/MM3 Mean Platelet Volume 7.7 FL Neutrophils (%) (Auto) 90.8 % Lymphocytes (%) (Auto) 3.3 % Monocytes (%) (Auto) 5.1 % Eosinophils (%) (Auto) 0.6 % Basophils (%) (Auto) 0.2 % Neutrophils # (Auto) 15.0 TH/MM3 Lymphocytes # (Auto) 0.5 TH/MM3 Monocytes # (Auto) 0.8 TH/MM3 Eosinophils # (Auto) 0.1 TH/MM3 Basophils # (Auto) 0.0 TH/MM3 CBC Comment DIFF FINAL Differential Comment Sodium Level 138 MEQ/L Potassium Level 3.2 MEQ/L Chloride Level 97 MEQ/L Carbon Dioxide Level 26.8 MEQ/L Anion Gap 14 MEQ/L Blood Urea Nitrogen 15 MG/DL Creatinine 1.10 MG/DL Estimat Glomerular Filtration 48 ML/MIN Rate Random Glucose 152 MG/DL Lactic Acid Level 4.4 mmol/L Calcium Level 8.4 MG/DL Phosphorus Level 2.3 MG/DL Magnesium Level 1.6 MG/DL Total Bilirubin 0.2 MG/DL Aspartate Amino Transf 24 U/L (AST/SGOT) Alanine Aminotransferase 31 U/L (ALT/SGPT) Alkaline Phosphatase 81 U/L Total Creatine Kinase 141 U/L Creatine Kinase MB LESS THAN 0.5 NG/ML Troponin I 0.03 NG/ML Total Protein 7.3 GM/DL Albumin 3.5 GM/DL Prothrombin Time 9.9 SEC Prothromb Time International 0.9 RATIO Ratio Activated Partial 25.2 SEC Thromboplast Time Urine Color YELLOW Urine Turbidity CLEAR Urine pH 7.0 Urine Specific [place] 1.016 Urine Protein TRACE mg/dL Urine Glucose (UA) NEG mg/dL Urine Ketones TRACE mg/dL Urine Occult Blood NEG Urine Nitrite NEG Urine Bilirubin NEG Urine Urobilinogen LESS THAN 2.0 MG/DL Urine Leukocyte Esterase NEG Urine RBC LESS THAN 1 /hpf Urine WBC LESS THAN 1 /hpf Urine Squamous Epithelial <1 /hpf Cells Urine Mucus FEW /lpf Microscopic Urinalysis Comment CATH-CULT NOT IND MDM Medical Decision Making Medical Screen Exam Complete: Yes Emergency Medical Condition: Yes Medical Record Reviewed: Yes (past history confirmed) Interpretation(s) CBC & BMP Diagram 12/09/16 23:46 Last 24 hours Impressions Chest X-Ray 12/09/16 2336 Signed Impressions: Service Date/Time: Saturday, December 10, 2016 00:09 - CONCLUSION: No acute disease. Stephen Kincaid MD Differential Diagnosis UTI, influenza, pneumonia, URI, sepsis Narrative Course Will check lab work, urinalysis, chest x-ray and dose with IV fluids and reevaluate Given elevated lactate will dose with aztreonam, Flagyl, vancomycin and monitor patient updated and agrees to admit Sepsis Criteria SIRS Criteria (2 or more): Temp > 100.9 or < 96.8, Heart rate over 90, WBC > 05165, < 4000 or > 10% bands Sepsis Criteria (SIRS+source): Infect source susp/known Severe Sepsis (+one): Lactate >2 Septic Shock Criteria: Lactic acid >=4 Criteria Outcome: Meets septic shock criteria Physician Communication Physician Communication dr loera agrees to admit, states admit to floor, will see Diagnosis Primary Impression: Septic shock Additional Impressions: Nausea & vomiting Qualified Code: R11.2 - Nausea and vomiting, intractability of vomiting not specified, unspecified vomiting type Lactic acidosis Admitting Information Admitting Physician Requests: Admit Daisy Burton MD Dec 10, 2016 00:58
[2016-12-10 01:00] LABS: CKMB LESS THAN 0.5 NG/ML (0.5-3.6)
[2016-12-10 01:09] LABS: APTT (PATIENT) 25.2 SEC (24.3-30.1); INTERNATIONAL NORMALIZED RATIO 0.9 RATIO; PROTHROMBIN TIME - PATIENT 9.9 SEC (9.8-11.6)
[2016-12-10] MEDS ORDERED: ACETAMINOPHEN 325 MG TAB PO ONE (01:15)
[2016-12-10 01:42] LABS: BLOOD, URINE NEG (NEG); GLUCOSE,URINE NEG (NEG); KETONE, URINE TRACE mg/dL (NEG); MUCUS URINE FEW /lpf (OCC); NITRITE,URINE NEG (NEG); SQUAMOUS EPITHELIAL CELL URINE <1 /hpf (0-5); URINE COLOR YELLOW (YELLW/STRAW)
[2016-12-10 01:43] LABS: COMMENT (UR) CATH-CULT NOT IND; CULTURE IF INDICATED CATH CULTURE NOT IND
[2016-12-10] MEDS ORDERED: MAGNESIUM HYDROXIDE SUSP 30 ML CUP PO PRN (01:45)
[2016-12-10] MEDS ORDERED: LACTULOSE SYRUP 20 GM/30 ML CUP PO PRN (01:45)
[2016-12-10] MEDS ORDERED: ACETAMINOPHEN 325 MG TAB PO PRN (01:45)
[2016-12-10] MEDS ORDERED: SENNOSIDES 8.6 MG TAB PO PRN (01:45)
[2016-12-10] MEDS ORDERED: BISACODYL 10 MG SUPP RECTAL PRN (01:45)
[2016-12-10 02:03] LABS: LACTIC ACID GHOST NOT REPORTABLE
[2016-12-10] MEDS: SODIUM CHLOR 0.9% 1000 ML INJ 1,000 ML IV SCH ×4 (03:09→22:30)
[2016-12-10] MEDS: HYDROmorphone HCL PF 1 MG/ML VIAL IV PRN ×5 (03:37→23:50)
[2016-12-10] MEDS ORDERED: Vancomycin Consult Pharmacy 1 EA OTHER SCH (04:00)
--- NOTE | 2016-12-10 04:05 | HHI.HP ---
HPI Service [facility] Primary Care Physician Jeimy Fontenot MD Admission Diagnosis sepsis Diagnoses: (1) Sepsis Diagnosis: Principal (2) MARIO ALBERTO (acute kidney injury) Diagnosis: Principal (3) Hypokalemia Diagnosis: Principal (4) COPD (chronic obstructive pulmonary disease) Diagnosis: Principal (5) DM (diabetes mellitus) Diagnosis: Principal Travel History International Travel<30 Days: No Contact w/Intl Traveler <30 Da: No Traveled to Known Affected Are: No History of Present Illness This is a 75-year-old female with a PMH of HTN, Arthritis, Anxiety, Depression, Hyperlipidemia, COPD and DM who presented to the ER with complaints of generalized weakness, myalgias and subjective fever/chills starting earlier tonight, states she was having difficulty getting off the couch due to generalized pain. Recent admit 10/27-11/07/16 for FUO, and Interstitial Lung Disease, s/p eval by ID as FUO persistent for several months, s/p IV Abx, LP negative, febrile episodes thought to be secondary to Rheumatoid Arthritis rather than infection. Also eval by Pulmonology, diagnosed w/ Asthmatic Bronchitis/COPD and Interstitial Lung Disease, d/c'd on steroid taper x3 wks. Returns now w/ ongoing complaints. On arrival, BP 173/72, HR 93, O2 sat 96% on RA, Temp 101.7 rectal. WBC 16.5. Creatinine 1.10, previously 0.75 on 11/02/16. Lactic Acid 4.4, repeat 2.8. Troponin negative. INR 0.9. UA negative. CXR with no acute findings. S/p Blood Cultures, Vanc/Flagyl/Azactam in ER. Review of Systems Except as stated in HPI: all other systems reviewed are Neg ROS: 14 point review of systems otherwise negative. Past Family Social History Past Medical History PMH: HTN, Arthritis, Anxiety, Depression, Hyperlipidemia, COPD and DM Past Surgical History PAST SURGICAL HISTORY: Allergies: Coded Allergies: Egg Allergy (Verified Allergy, Severe, DYSPNEA, SWELLING, 12/09/16) WHEN MIXED WITH CULTURES FOR IMMUNIZATIONS Erythromycin (Verified Allergy, Severe, HIVES, TROUBLE BREATHING, 12/09/16) Iodine (Verified Allergy, Severe, SWELLING, 12/09/16) Molds and Smuts (Verified Allergy, Severe, ITCHING, 12/09/16) DYSPNEA Penicillin (Verified Allergy, Severe, STOPS BREATHING, 12/09/16) Seafood (Verified Allergy, Severe, HIVES, 12/09/16) Sulfa (Verified Allergy, Severe, STOPS BREATHING, "SULFA POISONING", ) Metformin (Verified Adverse Reaction, Severe, DIARRHEA, GASTRIC CRAMPING, 12/09/16) Morphine (Verified Adverse Reaction, Unknown, STATES MAKES HER "TOO SLEEPY " - REFUSES, 12/09/16) Uncoded Allergies: MERCURY (Allergy, Severe, 09/10/16) Physical Exam Vital Signs Vital Signs Date Time Temp Pulse Resp B/P Pulse Ox O2 Delivery O2 Flow Rate FiO2 12/10/16 02:45 84 14 158/68 99 Room Air 12/10/16 01:22 89 18 174/70 98 Room Air 12/10/16 00:03 101.7 12/09/16 23:21 99.5 95 14 173/72 99 Room Air 12/09/16 23:21 94 20 12/09/16 23:19 99.5 93 20 173/72 96 Physical Exam PE: GENERAL: Elderly female in no acute distress. HEENT: PERRLA, EOMI. No scleral icterus or conjunctival pallor. No lid lag or facial droop. CARDIOVASCULAR: Regular rate and rhythm. No obvious murmurs to auscultation. No chest tenderness to palpation. RESPIRATORY: No obvious rhonchi or wheezing. Clear to auscultation. Breath sounds equal bilaterally. GASTROINTESTINAL: Abdomen soft, non-tender, nondistended. BS normal. MUSCULOSKELETAL: Extremities without clubbing, cyanosis, or edema. No obvious deformities. Significant tenderness to palpation of all extremities with minimal touch. NEUROLOGICAL: Awake, alert and oriented x4. No focal neurologic deficits. Moving both upper and lower extremities spontaneously. Laboratory Laboratory Tests Test 12/09/16 12/10/16 12/10/16 12/10/16 23:46 00:45 01:10 02:25 White Blood Count 16.5 Red Blood Count 4.46 Hemoglobin 11.3 Hematocrit 35.8 Mean Corpuscular Volume 80.2 Mean Corpuscular Hemoglobin 25.3 Mean Corpuscular Hemoglobin 31.6 Concent Red Cell Distribution Width 17.3 Platelet Count 440 Mean Platelet Volume 7.7 Neutrophils (%) (Auto) 90.8 Lymphocytes (%) (Auto) 3.3 Monocytes (%) (Auto) 5.1 Eosinophils (%) (Auto) 0.6 Basophils (%) (Auto) 0.2 Neutrophils # (Auto) 15.0 Lymphocytes # (Auto) 0.5 Monocytes # (Auto) 0.8 Eosinophils # (Auto) 0.1 Basophils # (Auto) 0.0 CBC Comment DIFF FINAL Differential Comment Sodium Level 138 Potassium Level 3.2 Chloride Level 97 Carbon Dioxide Level 26.8 Anion Gap 14 Blood Urea Nitrogen 15 Creatinine 1.10 Estimat Glomerular Filtration 48 Rate Random Glucose 152 Lactic Acid Level 4.4 2.8 Calcium Level 8.4 Phosphorus Level 2.3 Magnesium Level 1.6 Total Bilirubin 0.2 Aspartate Amino Transf 24 (AST/SGOT) Alanine Aminotransferase 31 (ALT/SGPT) Alkaline Phosphatase 81 Total Creatine Kinase 141 Creatine Kinase MB LESS THAN 0.5 Troponin I 0.03 Total Protein 7.3 Albumin 3.5 Prothrombin Time 9.9 Prothromb Time International 0.9 Ratio Activated Partial 25.2 Thromboplast Time Urine Color YELLOW Urine Turbidity CLEAR Urine pH 7.0 Urine Specific [place] 1.016 Urine Protein TRACE Urine Glucose (UA) NEG Urine Ketones TRACE Urine Occult Blood NEG Urine Nitrite NEG Urine Bilirubin NEG Urine Urobilinogen LESS THAN 2.0 Urine Leukocyte Esterase NEG Urine RBC LESS THAN 1 Urine WBC LESS THAN 1 Urine Squamous Epithelial <1 Cells Urine Mucus FEW Microscopic Urinalysis Comment CATH-CULT NOT IND Date/Time Procedure Status Source Growth 12/09/16 23:58 Influenza Types A,B Antigen (KATHY) - Final Complete Nasal Aspirate NEGATIVE FOR FLU A AND B ANTIGEN.... 12/09/16 23:46 Aerobic Blood Culture Received Blood Peripheral Pending 12/09/16 23:46 Anaerobic Blood Culture Received Blood Peripheral Pending Result Diagram: 12/09/16 7712 12/09/16 2346 Assessment and Plan Problem List: (1) Sepsis ICD Code: A41.9 Status: Resolved (2) MARIO ALBERTO (acute kidney injury) ICD Code: N17.9 Status: Acute (3) Hypokalemia ICD Code: E87.6 Status: Resolved (4) COPD (chronic obstructive pulmonary disease) ICD Code: J44.9 Status: Acute (5) DM (diabetes mellitus) ICD Code: E11.9 Status: Acute Assessment and Plan A/P: 1. Sepsis: Temp 101.7 rectal, WBC 16, Lactic Acid 4.4, repeat 2.8. Recent admit for similar, FUO. S/p Blood Cultures, IV Vanc/Flagyl/Azactam. Follow up cultures, continue IV Abx, re-consult ID for further recommendations as pt w/ recurrent episodes. 2. MARIO ALBERTO: Creatinine 1.10, previously 0.75 on 11/02/16. IVF for hydration, repeat labs in a.m. 3. Hypokalemia: K+ 3.2, s/p replacement, will recheck and replace as needed. 4. COPD: Chronic Respiratory Failure, recent admit w/ eval by Dr. Hoskins, noted to have COPD/Interstitial Lung Disease, d/c'd on Prednisone taper x3 wks, will resume Prednisone. Jones/SULEMA. 5. DM: Sliding scale w/ Accu-Cheks. Resume Insulin if stable in light of sepsis. 6. DVT Prophylaxis: SCD/[place]. 7. Social work for d/c planning as needed. 8. Case discussed w/ ER physician at length Physician Certification 2 Midnight Certification Type: Admission for Inpatient Services Order for Inpatient Services The services are ordered in accordance with Medicare regulations or non- Medicare payer requirements, as applicable. In the case of services not specified as inpatient-only, they are appropriately provided as inpatient services in accordance with the 2-midnight benchmark. Estimated LOS (days): 2 days is the estimated time the patient will need to remain in the hospital, assuming treatment plan goals are met and no additional complications. Post-Hospital Plan: Not yet determined Dulce Maria Montero MD Dec 10, 2016 04:05
[2016-12-10] MEDS: RESP: ALBUTEROL 2.5 MG/3 ML NEB (SCH) NEB ×4 (08:06→19:09)
[2016-12-10] MEDS: predniSONE 20 MG TAB PO SCH (08:16)
[2016-12-10] MEDS: ACETAMINOPHEN/HYDROcodone 325 MG/5 MG TAB PO PRN ×3 (08:16→21:03)
[2016-12-10] MEDS: ASPIRIN 81 MG CHEW TAB CHEW SCH (08:17)
[2016-12-10] MEDS: DOCUSATE SODIUM 100 MG CAP PO SCH ×2 (08:17→21:03)
[2016-12-10] MEDS: DOCUSATE SODIUM 50 MG/SENNA 8.6 MG TAB PO SCH ×2 (08:18→21:03)
[2016-12-10] MEDS: BUDESONIDE-FORMOTEROL 160/4.5 MCG INHALER INH SCH ×2 (08:18→21:04)
[2016-12-10] MEDS: AZTREONAM INJ 2,000 MG in SODIUM CHLORIDE 0.9% INJ 100 ML IV SCH ×2 (08:18→21:04)
[2016-12-10] MEDS: CITALOPRAM HYDROBROMIDE 20 MG TAB PO SCH (08:18)
[2016-12-10] MEDS: EZETIMIBE 10 MG TAB PO SCH (08:19)
[2016-12-10] MEDS: SODIUM CHLORIDE 0.9% FLUSH 10 ML FLUSH IV FLUSH SCH ×2 (08:21→21:03)
[2016-12-10] MEDS: HYDROXYCHLOROQUINE SULFATE 200 MG TAB PO SCH (08:37)
[2016-12-10] MEDS ORDERED: GLUCAGON 1 MG/ML VIAL OTHER PRN (08:45)
[2016-12-10] MEDS ORDERED: DEXTROSE 50% IN WATER 50 ML VIAL(D50) IV PUSH PRN (08:45)
[2016-12-10] MEDS: INSULIN NovoLIN REGULAR SUPPLEMENTAL SCALE SQ SCH ×3 (11:00→21:13)
[2016-12-10] MEDS: VANCOMYCIN INJ 1,250 MG in SODIUM CHLOR 0.9% 250 ML INJ 250 ML IV SCH (11:43)
--- NOTE | 2016-12-10 15:25 | ECHRPT ---
Indication: Severe sepsis without septic shock, Acute and subacute infective endocarditis CONCLUSIONS The left ventricular systolic function is normal with an estimated ejection fraction in the range of 60-65%. Wall thickness is normal. No regional wall motion abnormalities are present. The interatrial septum not well visualized. Mild mitral annular calcification. Mild thickening of the mitral valve leaflets. Trace mitral valve regurgitation. The aortic valve is not well visualized. Aortic valve sclerosis is present. The tricuspid valve is not well visualized. There is trace tricuspid valve regurgitation. The pulmonary valve is not well visualized. The inferior vena cava was not well visualized. BP: 178 / 74 HR: 62 Rhythm: Sinus MEASUREMENTS (Male / Female) Normal Values Technical Quality:Good, Technically difficult stud y 2D ECHO LV Diastolic Diameter PLAX 5.5 cm 4.2 - 5.9 / 3.9 - 5.3 cm LV Systolic Diameter PLAX 3.9 cm IVS Diastolic Thickness 1.0 cm 0.6 - 1.0 / 0.6 - 0.9 cm LVPW Diastolic Thickness 1.0 cm 0.6 - 1.0 / 0.6 - 0.9 cm LV Relative Wall Thickness 0.3 LVOT Diameter 2.0 cm Aortic Root Diameter 3.3 cm LA Systolic Diameter LX 3.9 cm 3.0 - 4.0 / 2.7 - 3.8 cm M-MODE AV Cusp Separation MM 2.3 cm DOPPLER AV Peak Velocity 167.0 cm/s AV Peak Gradient 11.2 mmHg AV Mean Gradient 6.0 mmHg AV Velocity Time Integral 38.8 cm LVOT Peak Velocity 90.2 cm/s LVOT Peak Gradient 3.3 mmHg LVOT Velocity Time Integral 19.9 cm LVOT Cardiac Index 1905.9 cm/minm AV Area Cont Eq vti 1.6 cm AV Area Cont Eq pk 1.7 cm MV Area PHT 1.1 cm PV Peak Velocity 61.7 cm/s PV Peak Gradient 1.5 mmHg FINDINGS LEFT VENTRICLE Wall thickness is normal. The left ventricular systolic function is normal with an estimated ejection fraction in the range of 60-65%. No regional wall motion abnormalities are present. Left ventricular diastolic function parameters are normal. RIGHT VENTRICLE Normal right ventricular size and systolic function. LEFT ATRIUM The left atrial size is normal. RIGHT ATRIUM The right atrial size is normal. ATRIAL SEPTUM The interatrial septum not well visualized. AORTA The aortic root and proximal ascending aorta are normal in size on limited imaging. MITRAL VALVE Mild mitral annular calcification. Mild thickening of the mitral valve leaflets. Trace mitral valve regurgitation. AORTIC VALVE The aortic valve is not well visualized. Trileaflet aortic valve. Aortic valve sclerosis is present. TRICUSPID VALVE The tricuspid valve is not well visualized. There is trace tricuspid valve regurgitation. PULMONARY VALVE The pulmonary valve is not well visualized. VESSELS The inferior vena cava was not well visualized. PERICARDIUM No pericardial effusion. Tex Rangel MD (Electronically Signed) Final Date:10 December 2016 15:24
[2016-12-10] MEDS ORDERED: LEVOTHYROXINE SODIUM 112 MCG TAB PO SCH (16:00)
[2016-12-10] MEDS: ONDANSETRON HCL 4 MG/2 ML VIAL IVP PRN ×2 (16:26→22:30)
--- NOTE | 2016-12-10 17:02 | MB ---
cc: JENSEN HAWLEY MD DATE OF CONSULTATION 12/10/[address] Montero REASON FOR CONSULTATION Sepsis, FUO. HISTORY OF PRESENT ILLNESS This is a 75-year-old white female who presented to the emergency department with fever and diffuse body aches and pains. The patient stated that she was doing well up until the evening before presenting to the emergency department where after she ate dinner, she developed severe pains and aches and had difficulty moving her legs and she had neck pain and neck stiffness and temperature stephan to 103 degrees. She notes that the difficulty in her legs was such that she was having difficulty getting off the couch and the pain became very severe. This is one of multiple admissions for this patient. She was recently admitted to the hospital in October with similar symptoms. Extensive workup was unremarkable, but she was found to have pneumonia on chest x-ray and she was treated with antibiotics and she did improve and was discharged from the hospital. A CT scan of the chest at the time showed areas of ground-glass opacity in the right upper lobe, left upper lobe and right middle lobe of the lung. She denies cough, shortness of breath, nausea, vomiting, dysuria, abdominal pain or diarrhea. She states that the pains are worse in the knees, shoulders and neck and she had chills with a fever. After admission, her temperature stephan to 101.7 degrees early this morning and white count is 16.5 and lactic acid level was elevated at 4.4. She also has acute renal insufficiency. Blood cultures were taken on admission. Influenza testing is negative. Chest x-ray shows no acute disease. Urinalysis was unremarkable. PAST MEDICAL HISTORY 1. Rheumatoid arthritis, 2. Fibromyalgia, 3. Hypertension, 4. Diabetes mellitus, 5. Hypothyroidism, 7. Hyperlipidemia, 8. Gastroesophageal reflux disease, 9. Psoriasis, 10. Asthma, 11. Bilateral knee replacement, 12. Hysterectomy, 13. Cardiac stent 14. Sigmoid resection 15. Ventral hernia repair. ALLERGIES PENICILLIN ERYTHROMYCIN MORPHINE METFORMIN SULFA IODINE SEAFOOD MOLD EGGS. MEDICATIONS 1. Vancomycin 2. Azactam 3. Prednisone 4. Inhaled albuterol. 5. Zetia 6. Plaquenil 7. Colace 8. Celexa 9. Aspirin 10. Rani-Colace. SOCIAL HISTORY The patient is . No tobacco, alcohol or illicit drugs. FAMILY HISTORY Noncontributory. REVIEW OF SYSTEMS GENERAL: Significant for fever and chills. HEENT: No visual blurring or diplopia. No nasal drainage or nasal bleeding. No difficulty swallowing or soreness of the throat. NECK: No neck swelling. CARDIOVASCULAR: No palpitations, no chest pain. RESPIRATORY: No cough, no shortness of breath, no hemoptysis. GASTROINTESTINAL: No nausea, vomiting, abdominal pain or diarrhea. GENITOURINARY:: No urgency, frequency or dysuria. HEMATOPOIETIC: No easy bruising or bleeding. MUSCULOSKELETAL: Significant pain in the joints and muscles diffusely. ENDOCRINE: No polyuria or polydipsia NEUROLOGIC: Problems with ambulation due to lack of ability to maintain balance. PSYCHIATRIC: No mood changes or depression. PHYSICAL EXAMINATION GENERAL: An obese female who is in no acute distress. She is awake, alert and oriented. VITAL SIGNS: Temperature 97.9, BP 162/62, respirations 18, heart rate 84. HEENT: Head atraumatic. Extraocular movements grossly intact, pupils reactive to light. No icterus. Oropharynx - no visible lesions. Moist mucosa. NECK: Supple. No adenopathy. LUNGS: Clear breath sounds, slightly decreased at bases. HEART: Regular S1 and S2 without murmurs, rubs or gallops. ABDOMEN: Bowel sounds present, soft, nontender. No masses palpable. RECTAL: Not performed. EXTREMITIES: No clubbing, cyanosis or edema. Severe tenderness on palpation of the knees. No visible swelling at the knees. SKIN: No rash. NEUROLOGIC: Awake and alert. Decreased strength of the lower extremities. LABORATORY DATA WBC 16.5, platelet count 440, hemoglobin 11.3, 90% neutrophils. Creatinine 1.10, BUN 15, sodium 137. Liver function tests normal. Creatinine kinase normal range. IMPRESSION 1. Sepsis indicated by fever, elevated white blood cell count, elevated lactic acid. No clear evidence of source of infection. 2. Fever, recurrent, episodic. Recent treatment for pneumonia. 3. Possible autoimmune disease as cause of part of the explanation for the patient's fever which is accompanied by weakness of the extremities and diffuse joint aches and pains. RECOMMENDATIONS 1. Continue vancomycin. 2. Continue Azactam 3. Monitor the blood cultures 4. Monitor white blood cell count 5. Obtain sedimentation rate 6. Monitor response. The patient is also receiving prednisone and that may be leading to some improvement. Her states that she feels better than yesterday evening. However, given the fever and white count, we have to definitely workup and consider sepsis in this patient. Because of the ongoing bouts of fever, I will also obtain a 2-D echocardiogram for further evaluation as well. Thank you for this consultation. The patient's progress will be monitored and further recommendations will be given on followup if necessary. Jensen Hawley MD FD/ /11:59 AM /4:33 PM
--- NOTE | 2016-12-10 17:15 | HHI.PR ---
Addendum to Inpatient Note Additional Information received a call from the nurse bp not controlled , we will resume her felodipine , add clonidine prn , resume levothyroxine , 2decho showed ef60% Ghazal Aguilera MD Dec 10, 2016 17:15
[2016-12-10] MEDS: hydrALAZINE HCL 100 MG TAB PO SCH (17:19)
[2016-12-10] MEDS: ALPRAZolam 0.25 MG TAB PO PRN (18:28)
[2016-12-11] VITALS: BP 162/67; PULSE 83; RESP 20; TEMP 98.2; O2SAT 93
[2016-12-11] MEDS: ACETAMINOPHEN/HYDROcodone 325 MG/5 MG TAB PO PRN ×3 (01:55→14:43)
[2016-12-11] MEDS: HYDROmorphone HCL PF 1 MG/ML VIAL IV PRN ×5 (03:13→22:04)
[2016-12-11 04:00] VITALS: BP 189/79; PULSE 73; RESP 20; TEMP 98.6; O2SAT 97
[2016-12-11] MEDS: LEVOTHYROXINE SODIUM 125 MCG TAB PO SCH (05:11)
[2016-12-11] MEDS: cloNIDine HCL 0.1 MG TAB PO PRN ×2 (05:20→22:07)
[2016-12-11] MEDS: INSULIN NovoLIN REGULAR SUPPLEMENTAL SCALE SQ SCH ×4 (06:26→21:00)
[2016-12-11] MEDS: SODIUM CHLOR 0.9% 1000 ML INJ 1,000 ML IV SCH ×2 (07:39→17:46)
[2016-12-11 07:57] LABS: AUTOMATED NEUTROPHIL # 6.8 TH/MM3 (1.8-7.7); BASOPHIL # 0.1 TH/MM3 (0-0.2); BASOPHIL % 1.3 % (0.0-2.0); EOSINOPHIL # 0.2 TH/MM3 (0-0.4); EOSINOPHIL % 1.6 % (0.0-4.0); HEMATOCRIT 31.7 % (35.0-46.0); LYMPH % 16.7 % (9.0-44.0); LYMPHOCYTE # 1.7 TH/MM3 (1.0-4.8); MEAN CELL VOLUME 82.5 FL (80.0-100.0); MEAN CORPUSCULAR HEMOGLOBIN 25.8 PG (27.0-34.0); MEAN CORPUSCULAR HGB CONC 31.2 % (32.0-36.0); NEUT % 66.4 % (16.0-70.0); PLATELET COUNT 413 TH/MM3 (150-450); RED BLOOD COUNT 3.84 MIL/MM3 (4.00-5.30); RED CELL DISTRIBUTION WIDTH 17.4 % (11.6-17.2); WHITE BLOOD COUNT 10.2 TH/MM3 (4.0-11.0)
[2016-12-11] MEDS: RESP: ALBUTEROL 2.5 MG/3 ML NEB (SCH) NEB ×4 (08:00→20:00)
[2016-12-11 08:10] LABS: HEMO FLAGS AUTO DIFF
[2016-12-11 08:17] VITALS: BP 143/63; PULSE 74; RESP 20; TEMP 96.8; O2SAT 98
[2016-12-11 08:28] LABS: ALKALINE PHOSPHATASE 65 U/L (45-117); ALT (GPT) 22 U/L (10-53); ANION GAP 6 MEQ/L (5-15); AST (GOT) 17 U/L (15-37); BICARBONATE 30.2 MEQ/L (21.0-32.0); BLOOD UREA NITROGEN 10 MG/DL (7-18); CHLORIDE 105 MEQ/L (98-107); GLOMERULAR FILTRATION RATE 92 ML/MIN (>89); POTASSIUM 3.5 MEQ/L (3.5-5.1); SODIUM (NA) 141 MEQ/L (136-145); TOTAL BILIRUBIN ADULT 0.2 MG/DL (0.2-1.0)
[2016-12-11] MEDS: HYDROXYCHLOROQUINE SULFATE 200 MG TAB PO SCH (08:39)
[2016-12-11] MEDS: ASPIRIN 81 MG CHEW TAB CHEW SCH (08:39)
[2016-12-11] MEDS: predniSONE 20 MG TAB PO SCH (08:39)
[2016-12-11] MEDS: DOCUSATE SODIUM 100 MG CAP PO SCH ×2 (08:39→22:07)
[2016-12-11] MEDS: hydrALAZINE HCL 100 MG TAB PO SCH ×3 (08:39→17:44)
[2016-12-11] MEDS: DOCUSATE SODIUM 50 MG/SENNA 8.6 MG TAB PO SCH ×2 (08:40→22:07)
[2016-12-11] MEDS: EZETIMIBE 10 MG TAB PO SCH (08:40)
[2016-12-11] MEDS: CITALOPRAM HYDROBROMIDE 20 MG TAB PO SCH (08:40)
[2016-12-11] MEDS: BUDESONIDE-FORMOTEROL 160/4.5 MCG INHALER INH SCH ×2 (08:42→22:06)
[2016-12-11] MEDS: AZTREONAM INJ 2,000 MG in SODIUM CHLORIDE 0.9% INJ 100 ML IV SCH ×2 (08:49→22:13)
[2016-12-11] MEDS: ALPRAZolam 0.25 MG TAB PO PRN (08:49)
[2016-12-11] MEDS ORDERED: FELODIPINE 10 MG PO SCH (09:00)
[2016-12-11] MEDS: SODIUM CHLORIDE 0.9% FLUSH 10 ML FLUSH IV FLUSH SCH ×2 (09:00→22:04)
[2016-12-11 09:17] LABS: SCAN/DIFF AUTO DIFF CONFIRMED
--- NOTE | 2016-12-11 09:57 | EKG ---
Date Performed: 12/09/2016 Time Performed: 23:28:46 PTAGE: 75 years EKG: Sinus rhythm MODERATE INTRAVENTRICULAR CONDUCTION DELAY NONSPECIFIC ST & T-WAVE ABNORMALITY BORDERLINE ECG PREVIOUS TRACING : 10/27/2016 08.38 DOCTOR: Kurt Manzo Interpretating Date/Time 12/11/2016 09:46:40
[2016-12-11] MEDS: VANCOMYCIN INJ 1,250 MG in SODIUM CHLOR 0.9% 250 ML INJ 250 ML IV SCH (12:08)
--- NOTE | 2016-12-11 12:31 | HHI.PR ---
Subjective Remarks Patient sitting in bed she is comfortable, she requested to resume her Ambien Blood pressure improved after giving her dose of hydralazine, WBC and creatinine improved today Objective Vitals Vital Signs Date Time Temp Pulse Resp B/P Pulse Ox O2 Delivery O2 Flow Rate FiO2 12/11/16 08:17 96.8 74 20 143/63 98 12/11/16 05:51 20 12/11/16 04:00 98.6 73 20 189/79 97 12/11/16 03:32 20 12/11/16 00:00 98.2 83 20 162/67 93 12/10/16 20:00 98.2 105 24 201/81 94 12/10/16 20:00 88 12/10/16 20:00 177/76 12/10/16 16:03 97 Nasal Cannula 2.00 12/10/16 16:00 98.2 93 20 163/80 100 I/O 12/10/16 12/10/16 12/10/16 12/11/16 12/11/16 12/11/16 07:00 15:00 23:00 07:00 15:00 23:00 Intake Total 450 ml 360 ml 240 ml 1200 ml Balance 450 ml 360 ml 240 ml 1200 ml Intake Oral 360 ml 240 ml IV Total 450 ml 1200 ml # Voids 1 6 2 # Bowel Movements 0 0 Result Diagram: 12/11/16 0735 12/11/16 0735 A/P Problem List: (1) Sepsis ICD Code: A41.9 Status: Resolved (2) MARIO ALBERTO (acute kidney injury) ICD Code: N17.9 Status: Acute (3) Hypokalemia ICD Code: E87.6 Status: Resolved (4) COPD (chronic obstructive pulmonary disease) ICD Code: J44.9 Status: Acute (5) DM (diabetes mellitus) ICD Code: E11.9 Status: Acute Assessment and Plan 1. Sepsis: Temp 101.7 rectal, WBC 16, Lactic Acid 4.4, repeat 2.8. Recent admit for similar, FUO. S/p Blood Cultures, IV Vanc/Flagyl/Azactam. Follow up cultures, continue IV Abx, re-consult ID for further recommendations as pt w/ recurrent episodes. Leukocytosis resolved 2. MARIO ALBERTO: Improved creatinine back to normal level IVF for hydration, 3. Hypokalemia: Resolved monitor and replace as needed 4. COPD: Chronic Respiratory Failure, recent admit w/ eval by Dr. Hoskins, noted to have COPD/Interstitial Lung Disease, d/c'd on Prednisone taper x3 wks, will resume Prednisone. Jones/SULEMA. 5. DM: Sliding scale w/ Accu-Cheks. Resume Insulin if stable in light of sepsis. 6. DVT Prophylaxis: SCD/Erwin. Ghazal Aguilera MD Dec 11, 2016 12:31
[2016-12-11] MEDS ORDERED: ZOLP10TA3 PO (12:46)
[2016-12-11] MEDS: ONDANSETRON HCL 4 MG/2 ML VIAL IVP PRN (16:32)
--- NOTE | 2016-12-11 16:56 | HHI.IDPN ---
Note Infectious Disease Note Patient complaining of pain at the right lower abdomen and neck. Says the pain move around. Moving her lower extremities better. Has nausea. Has not moved bowels in 2 days. Afebrile. WBC lower. Presented to the emergency department with fever and diffuse body aches and pains. The patient stated that she was doing well up until the evening before presenting to the emergency department where after she ate dinner, she developed severe pains and aches and had difficulty moving her legs and she had neck pain and neck stiffness and temperature stephan to 103 degrees. She notes that the difficulty in her legs was such that she was having difficulty getting off the couch and the pain became very severe. This is one of multiple admissions for this patient. She was recently admitted to the hospital in October with similar symptoms. PAST MEDICAL HISTORY 1. Rheumatoid arthritis, 2. Fibromyalgia, 3. Hypertension, 4. Diabetes mellitus, 5. Hypothyroidism, 7. Hyperlipidemia, 8. Gastroesophageal reflux disease, 9. Psoriasis, 10. Asthma, 11. Bilateral knee replacement, 12. Hysterectomy, 13. Cardiac stent 14. Sigmoid resection 15. Ventral hernia repair. ALLERGIES PENICILLIN ERYTHROMYCIN MORPHINE METFORMIN SULFA IODINE SEAFOOD MOLD EGGS. MEDICATIONS Current Medications Medications (Trade) Dose Ordered Sig/Amador Route PRN Reason Start Time Stop Time Status Last Admin Dose Admin Sodium Chloride (NS 1000 ml Inj) 1,000 ml @ 100 mls/hr Q10H IV 12/10/16 01:39 12/10/16 22:30 Sodium Chloride (NS Flush) 2 ml UNSCH PRN IV FLUSH FLUSH AFTER USING IV ACCESS 12/10/16 01:45 Sodium Chloride (NS Flush) 2 ml BID IV FLUSH 12/10/16 09:00 12/10/16 21:03 Ondansetron HCl (Zofran Inj) 4 mg Q6H PRN IVP NAUSEA OR VOMITING 12/10/16 01:45 12/11/16 16:32 Acetaminophen (Tylenol) 650 mg Q6H PRN PO FEVER/PAIN SCALE 1 TO 2 12/10/16 01:45 Acetaminophen/ Hydrocodone Bitart ([place] 5-325 Mg) 1 tab Q4H PRN PO PAIN SCALE 3 TO 5 12/10/16 01:45 12/11/16 14:43 Hydromorphone HCl (Dilaudid Pf Inj) 0.5 mg Q3H PRN IV Pain 12-1012/10/16 01:45 12/11/16 15:59 Senna/Docusate Sodium (Rani-Colace) 1 tab BID PO 12/10/16 09:00 12/11/16 08:40 Magnesium Hydroxide (Milk Of Magnesia Liq) 30 ml Q12H PRN PO MILD - MODERATE CONSTIPATION 12/10/16 01:45 12/11/16 16:29 Sennosides (Senokot) 17.2 mg Q12H PRN PO MODERATE - SEVERE CONSTIPATION 12/10/16 01:45 Bisacodyl (Dulcolax Supp) 10 mg DAILY PRN RECTAL SEVERE CONSITIPATION 12/10/16 01:45 Lactulose (Lactulose Liq) 30 ml DAILY PRN PO SEVERE CONSITIPATION 12/10/16 01:45 Alprazolam (Xanax) 0.25 mg Q12HR PRN PO ANXIETY 12/10/16 01:45 12/11/16 08:49 Aspirin (Aspirin Chew) 81 mg DAILY CHEW 12/10/16 09:00 12/11/16 08:39 Budesonide/ Formoterol Fumarate (Symbicort 160-4.5 Inh) 1 puff Q12HR INH 12/10/16 09:00 12/11/16 08:42 Citalopram Hydrobromide (CeleXA) 40 mg DAILY PO 12/10/16 09:00 12/11/16 08:40 Docusate Sodium (Colace) 100 mg BID PO 12/10/16 09:00 12/11/16 08:39 EZETIMIBE (Zetia) 10 mg DAILY PO 12/10/16 09:00 12/11/16 08:40 Hydroxychloroquine Sulfate 200 mg 200 mg DAILY PO 12/10/16 09:00 12/11/16 08:39 Pharmacy Profile Note 0 ml @ 0 mls/hr UNSCH OTHER 12/10/16 04:00 Aztreonam/Sodium Chloride (Azactam Inj/NS Inj) 100 ml @ 200 mls/hr Q12H IV 12/10/16 09:00 12/11/16 08:49 Prednisone (Deltasone) 20 mg DAILY PO 12/10/16 09:00 12/11/16 08:39 Dextrose (D50w (Vial) Inj) 25 ml UNSCH PRN IV PUSH HYPOGLYCEMIA-SEE COMMENTS 12/10/16 08:45 Glucagon 1 mg 1 mg UNSCH PRN OTHER HYPOGLYCEMIA-SEE COMMENTS 12/10/16 08:45 Vancomycin HCl/ Sodium Chloride (Vancomycin Inj/ NS 250 ml Inj) 262.5 ml @ 262.5 mls/ hr Q24H IV 12/10/16 11:00 12/11/16 12:08 Miscellaneous Information SPECIFIC LAB TO BE [facility]... ONCE ONCE .XX 12/13/16 10:45 12/13/16 10:46 Patient Own Medication PT OWN MED: FELODIP... DAILY PO 12/11/16 09:00 Hold Hydralazine HCl (Apresoline) 100 mg TID PO 12/10/16 18:00 12/11/16 12:10 Clonidine (Catapres) 0.1 mg Q6H PRN PO bp>160/90 12/10/16 16:00 12/11/16 05:20 Levothyroxine Sodium (Synthroid) 125 mcg DAILY@06 PO 12/11/16 06:00 12/11/16 05:11 Amlodipine Besylate (Norvasc) 10 mg DAILY PO 12/11/16 12:30 Zolpidem Tartrate (Ambien) 10 mg HS PO 12/11/16 21:00 OBJECTIVE: Vital Signs Date Time Temp Pulse Resp B/P Pulse Ox O2 Delivery O2 Flow Rate FiO2 12/11/16 13:04 19 12/11/16 08:17 96.8 74 20 143/63 98 12/11/16 05:51 20 12/11/16 04:00 98.6 73 20 189/79 97 12/11/16 00:00 98.2 83 20 162/67 93 12/10/16 20:00 98.2 105 24 201/81 94 12/10/16 20:00 88 12/10/16 20:00 177/76 12/10/16 12/10/16 12/11/16 15:00 23:00 07:00 Intake Total 360 ml 240 ml 1200 ml Balance 360 ml 240 ml 1200 ml Intake Oral 360 ml 240 ml IV Total 1200 ml # Voids 6 2 # Bowel Movements 0 0 Laboratory Tests Test 12/09/16 12/10/16 12/11/16 23:46 13:12 07:35 White Blood Count 16.5 TH/MM3 10.2 TH/MM3 Red Blood Count 4.46 MIL/MM3 3.84 MIL/MM3 Hemoglobin 11.3 GM/DL 9.9 GM/DL Hematocrit 35.8 % 31.7 % Mean Corpuscular Volume 80.2 FL 82.5 FL Mean Corpuscular Hemoglobin 25.3 PG 25.8 PG Mean Corpuscular Hemoglobin 31.6 % 31.2 % Concent Red Cell Distribution Width 17.3 % 17.4 % Platelet Count 440 TH/MM3 413 TH/MM3 Mean Platelet Volume 7.7 FL 7.3 FL Neutrophils (%) (Auto) 90.8 % 66.4 % Lymphocytes (%) (Auto) 3.3 % 16.7 % Monocytes (%) (Auto) 5.1 % 14.0 % Eosinophils (%) (Auto) 0.6 % 1.6 % Basophils (%) (Auto) 0.2 % 1.3 % Neutrophils # (Auto) 15.0 TH/MM3 6.8 TH/MM3 Lymphocytes # (Auto) 0.5 TH/MM3 1.7 TH/MM3 Monocytes # (Auto) 0.8 TH/MM3 1.4 TH/MM3 Eosinophils # (Auto) 0.1 TH/MM3 0.2 TH/MM3 Basophils # (Auto) 0.0 TH/MM3 0.1 TH/MM3 CBC Comment DIFF FINAL AUTO DIFF Differential Comment AUTO DIFF CONFIRMED Erythrocyte Sedimentation Rate 34 mm/hr Laboratory Tests Test 12/09/16 12/10/16 12/10/16 12/11/16 23:46 02:25 13:12 07:35 Sodium Level 138 MEQ/L 141 MEQ/L Potassium Level 3.2 MEQ/L 3.5 MEQ/L Chloride Level 97 MEQ/L 105 MEQ/L Carbon Dioxide Level 26.8 MEQ/L 30.2 MEQ/L Anion Gap 14 MEQ/L 6 MEQ/L Blood Urea Nitrogen 15 MG/DL 10 MG/DL Creatinine 1.10 MG/DL 0.63 MG/DL Estimat Glomerular Filtration 48 ML/MIN 92 ML/MIN Rate Random Glucose 152 MG/DL 121 MG/DL Lactic Acid Level 4.4 mmol/L 2.8 mmol/L Calcium Level 8.4 MG/DL 8.1 MG/DL Phosphorus Level 2.3 MG/DL Magnesium Level 1.6 MG/DL Total Bilirubin 0.2 MG/DL 0.2 MG/DL Aspartate Amino Transf 24 U/L 17 U/L (AST/SGOT) Alanine Aminotransferase 31 U/L 22 U/L (ALT/SGPT) Alkaline Phosphatase 81 U/L 65 U/L Total Creatine Kinase 141 U/L Creatine Kinase MB LESS THAN 0.5 NG/ML Troponin I 0.03 NG/ML Total Protein 7.3 GM/DL 6.5 GM/DL Albumin 3.5 GM/DL 2.7 GM/DL C-Reactive Protein 9.80 MG/DL Microbiology Date/Time Procedure Status Source Growth 12/09/16 23:36 Aerobic Blood Culture Received Blood Peripheral Pending 12/09/16 23:36 Anaerobic Blood Culture Received Blood Peripheral Pending 12/09/16 23:40 Aerobic Blood Culture - Preliminary Resulted Blood Peripheral NO GROWTH IN 1 DAY 12/09/16 23:40 Anaerobic Blood Culture - Preliminary Resulted Blood Peripheral NO GROWTH IN 1 DAY 12/09/16 23:46 Aerobic Blood Culture - Preliminary Resulted Blood Peripheral NO GROWTH IN 1 DAY 12/09/16 23:46 Anaerobic Blood Culture - Preliminary Resulted Blood Peripheral NO GROWTH IN 1 DAY 12/09/16 23:58 Influenza Types A,B Antigen (KATHY) - Final Complete Nasal Aspirate NEGATIVE FOR FLU A AND B ANTIGEN.... PHYSICAL EXAMINATION GENERAL: Distress from abdominal pain/nausea. HEENT: Head atraumatic. Extraocular movements grossly intact, pupils reactive to light. No icterus. Oropharynx - no visible lesions. Moist mucosa. NECK: Supple. No adenopathy. LUNGS: Clear breath sounds. HEART: Regular S1 and S2 without murmurs, rubs or gallops. ABDOMEN: Bowel sounds present, soft, tender to palpation at the right lower quadrant. EXTREMITIES: No clubbing, cyanosis or edema. Severe tenderness on of the lower extremities. SKIN: No rash. NEUROLOGIC: Awake and alert. Decreased strength of the lower extremities. IMPRESSION 1. Sepsis indicated by fever, elevated white blood cell count, elevated lactic acid. No clear source of infection. 2. Fever, recurrent, episodic. Recent treatment for pneumonia. 3. Possible autoimmune disease as cause of part of the explanation for the patient's fever which is accompanied by weakness of the extremities and diffuse joint aches and pains. 4. Abdominal pain ? ileus. RECOMMENDATIONS 1. Continue vancomycin. 2. Continue Azactam 3. Obtain KUB to evaluate for ileus. If KUB is negative obtain abdominal ultrasound to evaluate the RLQ pain. 4. Monitor the blood cultures 5. Monitor white blood cell count 6. Monitor response. 7. Also on prednisone. Hunter Hawley MD Dec 11, 2016 16:56
--- NOTE | 2016-12-11 17:22 | RADRPT ---
EXAM DATE/TIME: 12/11/2016 17:04 [facility] COMPARISON: No previous studies available for comparison. INDICATIONS : Ileus. Lower abdominal pain. MEDICAL HISTORY : None. SURGICAL HISTORY : None. ENCOUNTER: Initial ACUITY: 2 days PAIN SCORE: 8/10 LOCATION: Bilateral lower quadrant FINDINGS: This is a limited quality exam; the right diaphragm is not included in the left lateral abdominal wal l is not included. There are no dilated loops of small bowel seen. Some stool is seen in the left c olon. No suspicious calcifications. Moderate degenerative changes in the lumbar spine. CONCLUSION: No dilated loops of small or large bowel. John Chisholm MD on December 11, 2016 at 17:18 Board Certified Radiologist. This report was verified electronically.
[2016-12-11 20:00] VITALS: BP 197/81; PULSE 78; RESP 20; TEMP 97.8; O2SAT 97
[2016-12-11] MEDS: ZOLPIDEM TARTRATE 10 MG TAB PO SCH (22:07)
[2016-12-12] VITALS (12 sets, daily range): BP systolic 104–200; BP diastolic 56–96; PULSE 77–98; RESP 17–22; TEMP 95.5–99; O2SAT 93–97
[2016-12-12] MEDS ORDERED: ENALAPRILAT 1.25 MG/ML VIAL IV PUSH PRN (02:00)
[2016-12-12] MEDS: SODIUM CHLOR 0.9% 1000 ML INJ 1,000 ML IV SCH ×3 (02:12→23:39)
[2016-12-12] MEDS: SODIUM CHLORIDE 0.9% FLUSH 10 ML FLUSH IV FLUSH PRN ×2 (02:12→04:51)
[2016-12-12] MEDS: ACETAMINOPHEN/HYDROcodone 325 MG/5 MG TAB PO PRN ×3 (02:12→14:01)
[2016-12-12] MEDS: hydrALAZINE HCL 10 MG TAB PO PRN ×2 (04:50→22:01)
[2016-12-12] MEDS: LEVOTHYROXINE SODIUM 125 MCG TAB PO SCH (04:50)
[2016-12-12] MEDS: HYDROmorphone HCL PF 1 MG/ML VIAL IV PRN ×4 (04:51→19:16)
[2016-12-12] MEDS: INSULIN NovoLIN REGULAR SUPPLEMENTAL SCALE SQ SCH ×4 (06:27→20:54)
[2016-12-12] MEDS: RESP: ALBUTEROL 2.5 MG/3 ML NEB (SCH) NEB ×4 (07:34→19:48)
[2016-12-12] MEDS: SODIUM CHLORIDE 0.9% FLUSH 10 ML FLUSH IV FLUSH SCH ×2 (09:00→21:46)
[2016-12-12] MEDS: DOCUSATE SODIUM 50 MG/SENNA 8.6 MG TAB PO SCH ×2 (09:13→21:44)
[2016-12-12] MEDS: ASPIRIN 81 MG CHEW TAB CHEW SCH (09:13)
[2016-12-12] MEDS: CITALOPRAM HYDROBROMIDE 20 MG TAB PO SCH (09:13)
[2016-12-12] MEDS: EZETIMIBE 10 MG TAB PO SCH (09:13)
[2016-12-12] MEDS: predniSONE 20 MG TAB PO SCH (09:13)
[2016-12-12] MEDS: hydrALAZINE HCL 100 MG TAB PO SCH ×3 (09:14→18:00)
[2016-12-12] MEDS: DOCUSATE SODIUM 100 MG CAP PO SCH ×2 (09:14→21:44)
[2016-12-12] MEDS: BUDESONIDE-FORMOTEROL 160/4.5 MCG INHALER INH SCH ×2 (09:14→21:45)
[2016-12-12] MEDS: AZTREONAM INJ 2,000 MG in SODIUM CHLORIDE 0.9% INJ 100 ML IV SCH ×2 (09:32→21:39)
[2016-12-12] MEDS: HYDROXYCHLOROQUINE SULFATE 200 MG TAB PO SCH (09:36)
--- NOTE | 2016-12-12 10:03 | HHI.PR ---
Subjective Remarks pt complaoning of severe abd discomfort , cant move her bowel , blood pressure is not controlled 200/96 however patient is complaining of constipation having hard time to move her bowel discussed with the nurse, however she finally moved her bowels feeling much better repeated blood pressure improved in t in the 140 systolic Objective Vitals Vital Signs Date Time Temp Pulse Resp B/P Pulse Ox O2 Delivery O2 Flow Rate FiO2 12/12/16 08:00 97.9 82 17 188/77 96 12/12/16 07:34 95 21 12/12/16 06:11 144/70 12/12/16 04:00 98.6 87 20 200/96 97 12/12/16 02:41 77 12/12/16 00:00 97.8 83 20 199/77 96 12/11/16 20:00 97.8 78 20 197/81 97 12/11/16 13:04 19 I/O 12/11/16 12/11/16 12/11/16 12/12/16 12/12/16 12/12/16 07:00 15:00 23:00 07:00 15:00 23:00 Intake Total 1200 ml 360 ml 60 ml Balance 1200 ml 360 ml 60 ml Intake Oral 360 ml 60 ml IV Total 1200 ml # Voids 3 3 # Bowel Movements 0 0 Result Diagram: 12/11/1635 12/11/1635 Objective Remarks GENERAL: This is a well-nourished, well-developed patient, in mild distress due to strain to move bowel CARDIOVASCULAR: Regular rate and rhythm without murmurs, gallops, or rubs. RESPIRATORY: Clear to auscultation. Breath sounds equal bilaterally. No wheezes , rales, or rhonchi. GASTROINTESTINAL: Abdomen soft, non-tender, nondistended. Normal active bowel sounds MUSCULOSKELETAL: Extremities without clubbing, cyanosis, or edema. NEURO: Alert & Oriented x4 to person, place, time, situation. Moves all ext x4 A/P Problem List: (1) Sepsis ICD Code: A41.9 Status: Resolved (2) MARIO ALBERTO (acute kidney injury) ICD Code: N17.9 Status: Acute (3) Hypokalemia ICD Code: E87.6 Status: Resolved (4) COPD (chronic obstructive pulmonary disease) ICD Code: J44.9 Status: Acute (5) DM (diabetes mellitus) ICD Code: E11.9 Status: Acute Assessment and Plan 1. Sepsis: Temp 101.7 rectal, WBC 16, Lactic Acid 4.4, repeat 2.8. Recent admit for similar, FUO. S/p Blood Cultures, IV Vanc/Flagyl/Azactam. Follow up cultures, continue IV Abx, re-consult ID for further recommendations as pt w/ recurrent episodes. Leukocytosis resolved I recommended KUB and if negative to do ultrasound of the abdomen, I will do CT without contrast considering her severe abdominal discomfort 2. MARIO ALBERTO: Improved creatinine back to normal level IVF for hydration, 3. Hypokalemia: Resolved monitor and replace as needed 4. COPD: Chronic Respiratory Failure, recent admit w/ eval by Dr. Hoskins, noted to have COPD/Interstitial Lung Disease, d/c'd on Prednisone taper x3 wks, will resume Prednisone. DuoNeb/MDI. 5. DM: Sliding scale w/ Accu-Cheks. Resume Insulin if stable in light of sepsis. 6. DVT Prophylaxis: SCD/Erwin. 7. htn: uncontrolled today due to excessive restrain to move bowel , resume ccb , patient is to be on felodipine, pharmacy has no rNorvavsc. start 5 mg and inc if needed addendum: Received a call from nurse patient refused CT abdomen Ghazal Aguilera MD Dec 12, 2016 10:03
[2016-12-12] MEDS: VANCOMYCIN INJ 1,250 MG in SODIUM CHLOR 0.9% 250 ML INJ 250 ML IV SCH (10:43)
[2016-12-12] MEDS ORDERED: DIATRIZOATE MEGLUM/DIATRIZOATE SOD 9 ML CUP PO ONE (12:30)
--- NOTE | 2016-12-12 12:55 | HHI.IDPN ---
Note Infectious Disease Note Patient snoring loudly when I entered the room. Awakened easily. Says she slept well last night after sleeping pill. complaining of pain at the left lower abdomen and neck. Moving her lower extremities okay. Got up to bedside commode. Had 2 BM this am. No nausea this am. Afebrile. CT of abdomen ordered. Presented to the emergency department with fever and diffuse body aches and pains. The patient stated that she was doing well up until the evening before presenting to the emergency department where after she ate dinner, she developed severe pains and aches and had difficulty moving her legs and she had neck pain and neck stiffness and temperature stephan to 103 degrees. She notes that the difficulty in her legs was such that she was having difficulty getting off the couch and the pain became very severe. This is one of multiple admissions for this patient. She was recently admitted to the hospital in October with similar symptoms. PAST MEDICAL HISTORY 1. Rheumatoid arthritis, 2. Fibromyalgia, 3. Hypertension, 4. Diabetes mellitus, 5. Hypothyroidism, 7. Hyperlipidemia, 8. Gastroesophageal reflux disease, 9. Psoriasis, 10. Asthma, 11. Bilateral knee replacement, 12. Hysterectomy, 13. Cardiac stent 14. Sigmoid resection 15. Ventral hernia repair. ALLERGIES PENICILLIN ERYTHROMYCIN MORPHINE METFORMIN SULFA IODINE SEAFOOD MOLD EGGS. MEDICATIONS Current Medications Medications (Trade) Dose Ordered Sig/Amador Route PRN Reason Start Time Stop Time Status Last Admin Dose Admin Sodium Chloride (NS 1000 ml Inj) 1,000 ml @ 100 mls/hr Q10H IV 12/10/16 01:39 12/12/16 02:12 Sodium Chloride (NS Flush) 2 ml UNSCH PRN IV FLUSH FLUSH AFTER USING IV ACCESS 12/10/16 01:45 12/12/16 04:51 Sodium Chloride (NS Flush) 2 ml BID IV FLUSH 12/10/16 09:00 12/11/16 22:04 Ondansetron HCl (Zofran Inj) 4 mg Q6H PRN IVP NAUSEA OR VOMITING 12/10/16 01:45 12/11/16 16:32 Acetaminophen (Tylenol) 650 mg Q6H PRN PO FEVER/PAIN SCALE 1 TO 2 12/10/16 01:45 Acetaminophen/ Hydrocodone Bitart ([place] 5-325 Mg) 1 tab Q4H PRN PO PAIN SCALE 3 TO 5 12/10/16 01:45 12/12/16 09:32 Hydromorphone HCl (Dilaudid Pf Inj) 0.5 mg Q3H PRN IV Pain 6-12/10/16 01:45 12/12/16 10:44 Senna/Docusate Sodium (Rani-Colace) 1 tab BID PO 12/10/16 09:00 12/12/16 09:13 Magnesium Hydroxide (Milk Of Magnesia Liq) 30 ml Q12H PRN PO MILD - MODERATE CONSTIPATION 12/10/16 01:45 12/11/16 16:29 Sennosides (Senokot) 17.2 mg Q12H PRN PO MODERATE - SEVERE CONSTIPATION 12/10/16 01:45 Bisacodyl (Dulcolax Supp) 10 mg DAILY PRN RECTAL SEVERE CONSITIPATION 12/10/16 01:45 Lactulose (Lactulose Liq) 30 ml DAILY PRN PO SEVERE CONSITIPATION 12/10/16 01:45 Alprazolam (Xanax) 0.25 mg Q12HR PRN PO ANXIETY 12/10/16 01:45 12/11/16 08:49 Aspirin (Aspirin Chew) 81 mg DAILY CHEW 12/10/16 09:00 12/12/16 09:13 Budesonide/ Formoterol Fumarate (Symbicort 160-4.5 Inh) 1 puff Q12HR INH 12/10/16 09:00 12/12/16 09:14 Citalopram Hydrobromide (CeleXA) 40 mg DAILY PO 12/10/16 09:00 12/12/16 09:13 Docusate Sodium (Colace) 100 mg BID PO 12/10/16 09:00 12/12/16 09:14 EZETIMIBE (Zetia) 10 mg DAILY PO 12/10/16 09:00 12/12/16 09:13 Hydroxychloroquine Sulfate 200 mg 200 mg DAILY PO 12/10/16 09:00 12/12/16 09:36 Pharmacy Profile Note 0 ml @ 0 mls/hr UNSCH OTHER 12/10/16 04:00 Aztreonam/Sodium Chloride (Azactam Inj/NS Inj) 100 ml @ 200 mls/hr Q12H IV 12/10/16 09:00 12/12/16 09:32 Prednisone (Deltasone) 20 mg DAILY PO 12/10/16 09:00 12/12/16 09:13 Dextrose (D50w (Vial) Inj) 25 ml UNSCH PRN IV PUSH HYPOGLYCEMIA-SEE COMMENTS 12/10/16 08:45 Glucagon 1 mg 1 mg UNSCH PRN OTHER HYPOGLYCEMIA-SEE COMMENTS 12/10/16 08:45 Vancomycin HCl/ Sodium Chloride (Vancomycin Inj/ NS 250 ml Inj) 262.5 ml @ 262.5 mls/ hr Q24H IV 12/10/16 11:00 12/12/16 10:43 Miscellaneous Information SPECIFIC LAB TO BE [facility]... ONCE ONCE .XX 12/13/16 10:45 12/13/16 10:46 Patient Own Medication PT OWN MED: FELODIP... DAILY PO 12/11/16 09:00 Hold Hydralazine HCl (Apresoline) 100 mg TID PO 12/10/16 18:00 12/12/16 09:14 Clonidine (Catapres) 0.1 mg Q6H PRN PO bp>160/90 12/10/16 16:00 12/11/16 22:07 Levothyroxine Sodium (Synthroid) 125 mcg DAILY@06 PO 12/11/16 06:00 12/12/16 04:50 Zolpidem Tartrate (Ambien) 10 mg HS PO 12/11/16 21:00 12/11/16 22:07 Enalaprilat (Vasotec Inj) 1.25 mg Q6H PRN IV PUSH SBP>170, DBP>90 12/12/16 02:00 12/12/16 02:12 Hydralazine HCl (Apresoline) 10 mg Q6HR PRN PO SBP>160, DBP>90 12/12/16 02:00 12/12/16 04:50 Amlodipine Besylate (Norvasc) 5 mg DAILY PO 12/12/16 12:15 OBJECTIVE: Vital Signs Date Time Temp Pulse Resp B/P Pulse Ox O2 Delivery O2 Flow Rate FiO2 12/12/16 12:00 97.4 87 17 160/68 93 12/12/16 10:50 123/56 12/12/16 10:45 138/65 12/12/16 08:00 97.9 82 17 188/77 96 12/12/16 07:34 95 21 12/12/16 06:11 144/70 12/12/16 04:00 98.6 87 20 200/96 97 12/12/16 02:41 77 12/12/16 00:00 97.8 83 20 199/77 96 12/11/16 20:00 97.8 78 20 197/81 97 12/11/16 13:04 19 12/11/16 12/11/16 12/12/16 15:00 23:00 07:00 Intake Total 360 ml 60 ml Balance 360 ml 60 ml Intake Oral 360 ml 60 ml # Voids 3 3 # Bowel Movements 0 0 Laboratory Tests Test 12/10/16 12/11/16 13:12 07:35 Erythrocyte Sedimentation Rate 34 mm/hr White Blood Count 10.2 TH/MM3 Red Blood Count 3.84 MIL/MM3 Hemoglobin 9.9 GM/DL Hematocrit 31.7 % Mean Corpuscular Volume 82.5 FL Mean Corpuscular Hemoglobin 25.8 PG Mean Corpuscular Hemoglobin 31.2 % Concent Red Cell Distribution Width 17.4 % Platelet Count 413 TH/MM3 Mean Platelet Volume 7.3 FL Neutrophils (%) (Auto) 66.4 % Lymphocytes (%) (Auto) 16.7 % Monocytes (%) (Auto) 14.0 % Eosinophils (%) (Auto) 1.6 % Basophils (%) (Auto) 1.3 % Neutrophils # (Auto) 6.8 TH/MM3 Lymphocytes # (Auto) 1.7 TH/MM3 Monocytes # (Auto) 1.4 TH/MM3 Eosinophils # (Auto) 0.2 TH/MM3 Basophils # (Auto) 0.1 TH/MM3 CBC Comment AUTO DIFF Differential Comment AUTO DIFF CONFIRMED Laboratory Tests Test 12/10/16 12/11/16 13:12 07:35 C-Reactive Protein 9.80 MG/DL Sodium Level 141 MEQ/L Potassium Level 3.5 MEQ/L Chloride Level 105 MEQ/L Carbon Dioxide Level 30.2 MEQ/L Anion Gap 6 MEQ/L Blood Urea Nitrogen 10 MG/DL Creatinine 0.63 MG/DL Estimat Glomerular Filtration 92 ML/MIN Rate Random Glucose 121 MG/DL Calcium Level 8.1 MG/DL Total Bilirubin 0.2 MG/DL Aspartate Amino Transf 17 U/L (AST/SGOT) Alanine Aminotransferase 22 U/L (ALT/SGPT) Alkaline Phosphatase 65 U/L Total Protein 6.5 GM/DL Albumin 2.7 GM/DL Microbiology Date/Time Procedure Status Source Growth 12/09/16 23:36 Aerobic Blood Culture Received Blood Peripheral Pending 12/09/16 23:36 Anaerobic Blood Culture Received Blood Peripheral Pending 12/09/16 23:40 Aerobic Blood Culture - Preliminary Resulted Blood Peripheral NO GROWTH IN 2 DAYS 12/09/16 23:40 Anaerobic Blood Culture - Preliminary Resulted Blood Peripheral NO GROWTH IN 2 DAYS 12/09/16 23:46 Aerobic Blood Culture - Preliminary Resulted Blood Peripheral NO GROWTH IN 2 DAYS 12/09/16 23:46 Anaerobic Blood Culture - Preliminary Resulted Blood Peripheral NO GROWTH IN 2 DAYS 12/09/16 23:58 Influenza Types A,B Antigen (KATHY) - Final Complete Nasal Aspirate NEGATIVE FOR FLU A AND B ANTIGEN.... IMAGING: Abdomen X-Ray 12/11/16 0000 Signed Impressions: Service Date/Time: Sunday, December 11, 2016 17:04 - CONCLUSION: No dilated loops of small or large bowel. John Chisholm MD Chest X-Ray 12/09/16 2336 Signed Impressions: Service Date/Time: Saturday, December 10, 2016 00:09 - CONCLUSION: No acute disease. Stephen Kincaid MD PHYSICAL EXAMINATION GENERAL: No acute distress. HEENT: Head atraumatic. Extraocular movements grossly intact, pupils reactive to light. No icterus. Oropharynx - no visible lesions. Moist mucosa. NECK: Supple. No adenopathy. LUNGS: Clear breath sounds. HEART: Regular S1 and S2 without murmurs, rubs or gallops. ABDOMEN: Bowel sounds present, soft, tender to palpation at the left lower quadrant. EXTREMITIES: No clubbing, cyanosis or edema. Severe tenderness on of the lower extremities. SKIN: No rash. NEUROLOGIC: Awake and alert. improved strength of the lower extremities. IMPRESSION 1. Sepsis indicated by fever, elevated white blood cell count, elevated lactic acid. No clear source of infection. 2. Febrile illness ? etiology, recurrent, episodic. Recent treatment for pneumonia. 3. Possible autoimmune disease as cause of part of the explanation for the patient's fever which is accompanied by weakness of the extremities and diffuse joint aches and pains. 4. Abdominal pain. No ileus. ? etiology. RECOMMENDATIONS 1. Continue vancomycin. 2. Continue Azactam 3. Monitor abdomen CT. 4. Monitor the blood cultures 5. Ambulation. Hunter Hawley MD Dec 12, 2016 12:55
[2016-12-12] MEDS: ONDANSETRON HCL 4 MG/2 ML VIAL IVP PRN ×2 (13:59→21:37)
[2016-12-12] MEDS: amLODIPine BESYLATE 5 MG TAB PO SCH (14:01)
--- NOTE | 2016-12-12 17:33 | RADRPT ---
EXAM DATE/TIME: 12/12/2016 17:02 [facility] COMPARISON: CT ABDOMEN & PELVIS W/O CONTRAST, October 27, 2016, 8:15. INDICATIONS : Diffuse abdomen pain. ORAL CONTRAST: No oral contrast ingested. RADIATION DOSE: 16.93 CTDIvol (mGy) MEDICAL HISTORY : Cardiovascular disease. Hypertension. Diverticulitis. SURGICAL HISTORY : Colon resection. Hysterectomy. Coronary artery stent. ENCOUNTER: Initial ACUITY: 1 day PAIN SCALE: 10/10 LOCATION: Bilateral abdomen TECHNIQUE: Volumetric scanning of the abdomen and pelvis was performed. Using automated exposure control and ad justment of the mA and/or kV according to patient size, radiation dose was kept as low as reasonably achievable to obtain optimal diagnostic quality images. FINDINGS: Tiny pleural effusions are noted bilaterally. There is minimal patchiness within the left lung base posteriorly consistent with atelectasis and/or mild infiltrates. There is a moderate sized hiatal her tess which is stable. Diffuse fatty infiltration of the liver is noted and is also stable. The gallb ladder is distended but demonstrates no definite wall thickening. Ventral abdominal wall hernias con tain loops of small bowel but no small bowel obstruction is noted. There is no colonic obstruction. Evaluation of the solid organs of the abdomen is limited by the lack of intravenous contrast. A 3.8 x 2.5 cm right adnexal cystic lesion is again noted. This is also stable compared to the previous e xamination. Degenerative changes and scoliosis of the lumbar spine are noted. The patient is status post colonic surgery with no evidence of colonic obstruction on today's examination. The urinary lucius dder is unremarkable. CONCLUSION: 1. Enlarged fatty liver. 2. Moderate sized hiatal hernia. 3. Ventral abdominal wall hernias which contain loops of small bowel but are unchanged compared to t he previous examination and result in no small bowel obstruction. 4. Degenerative changes and scoliosis of the lumbar spine. 5. Stable right adnexal cystic lesion measuring 3.8 x 2.5 cm. 6. Minimal streakiness within the left lung base consistent with atelectasis and/or infiltrate. 7. Tiny bilateral pleural effusions are noted. Piter Sauceda MD on December 12, 2016 at 17:17 Board Certified Radiologist. This report was verified electronically.
[2016-12-12] MEDS: ZOLPIDEM TARTRATE 10 MG TAB PO SCH (21:44)
[2016-12-13] VITALS (8 sets, daily range): BP systolic 146–200; BP diastolic 70–92; PULSE 64–93; RESP 16–21; TEMP 98.1–99; O2SAT 94–97
[2016-12-13] MEDS: HYDROmorphone HCL PF 1 MG/ML VIAL IV PRN ×6 (03:12→21:47)
[2016-12-13] MEDS: ONDANSETRON HCL 4 MG/2 ML VIAL IVP PRN ×3 (03:16→14:15)
[2016-12-13] MEDS: cloNIDine HCL 0.1 MG TAB PO PRN (04:31)
[2016-12-13] MEDS: LEVOTHYROXINE SODIUM 125 MCG TAB PO SCH (06:01)
[2016-12-13] MEDS: INSULIN NovoLIN REGULAR SUPPLEMENTAL SCALE SQ SCH ×4 (06:28→21:18)
[2016-12-13 07:11] LABS: AUTOMATED NEUTROPHIL # 6.8 TH/MM3 (1.8-7.7); BASOPHIL % 0.5 % (0.0-2.0); EOSINOPHIL # 0.1 TH/MM3 (0-0.4); EOSINOPHIL % 0.8 % (0.0-4.0); HEMATOCRIT 31.5 % (35.0-46.0); LYMPH % 16.9 % (9.0-44.0); LYMPHOCYTE # 1.7 TH/MM3 (1.0-4.8); MEAN CELL VOLUME 80.9 FL (80.0-100.0); MEAN CORPUSCULAR HEMOGLOBIN 25.6 PG (27.0-34.0); MEAN CORPUSCULAR HGB CONC 31.7 % (32.0-36.0); MONO % 13.2 % (0.0-8.0); NEUT % 68.6 % (16.0-70.0); PLATELET COUNT 457 TH/MM3 (150-450); RED CELL DISTRIBUTION WIDTH 17.3 % (11.6-17.2); WHITE BLOOD COUNT 9.9 TH/MM3 (4.0-11.0)
[2016-12-13 07:17] LABS: HEMO FLAGS AUTO DIFF
[2016-12-13 07:47] LABS: BICARBONATE 27.5 MEQ/L (21.0-32.0)
[2016-12-13] MEDS: ASPIRIN 81 MG CHEW TAB CHEW SCH (07:54)
[2016-12-13] MEDS: HYDROXYCHLOROQUINE SULFATE 200 MG TAB PO SCH (07:54)
[2016-12-13] MEDS: EZETIMIBE 10 MG TAB PO SCH (07:54)
[2016-12-13] MEDS: DOCUSATE SODIUM 50 MG/SENNA 8.6 MG TAB PO SCH ×2 (07:56→21:19)
[2016-12-13] MEDS: DOCUSATE SODIUM 100 MG CAP PO SCH ×2 (07:56→21:19)
[2016-12-13] MEDS: hydrALAZINE HCL 100 MG TAB PO SCH ×3 (07:56→16:14)
[2016-12-13] MEDS: predniSONE 20 MG TAB PO SCH (07:57)
[2016-12-13] MEDS: CITALOPRAM HYDROBROMIDE 20 MG TAB PO SCH (07:57)
[2016-12-13] MEDS: amLODIPine BESYLATE 5 MG TAB PO SCH (07:58)
[2016-12-13] MEDS: SODIUM CHLOR 0.9% 1000 ML INJ 1,000 ML IV SCH ×2 (07:59→15:11)
[2016-12-13] MEDS: SODIUM CHLORIDE 0.9% FLUSH 10 ML FLUSH IV FLUSH SCH ×2 (07:59→21:17)
[2016-12-13] MEDS: AZTREONAM INJ 2,000 MG in SODIUM CHLORIDE 0.9% INJ 100 ML IV SCH ×2 (07:59→21:43)
[2016-12-13] MEDS: RESP: ALBUTEROL 2.5 MG/3 ML NEB (SCH) NEB ×4 (08:00→21:00)
[2016-12-13] MEDS: BUDESONIDE-FORMOTEROL 160/4.5 MCG INHALER INH SCH ×2 (08:02→21:17)
[2016-12-13 08:22] LABS: POTASSIUM 2.9 MEQ/L (3.5-5.1)
[2016-12-13 08:36] LABS: VANCOMYCIN TROUGH 5.3 MCG/ML (5.0-10.0)
[2016-12-13 08:39] LABS: BANDS 3 % (0-6); BASOPHILS 1 % (0-2); CORRECTED NUCLEATED RBC 1 /100 WBC (0-0); METAMYELOCYTES 4 % (0-1); NEUTROPHIL # MANUAL DIFF 7.2 TH/MM3 (1.8-7.7); POLYS (SEG NEUTROPHILS) 66 % (16-70); WBC DIFF SAMPLE 100
[2016-12-13 08:41] LABS: PLATELET ESTIMATE SMEAR HIGH (NORMAL); PLATELET MORPHOLOGY NORMAL (NORMAL); SCAN/DIFF FINAL DIFF MANUAL
[2016-12-13] MEDS ORDERED: amLODIPine BESYLATE 5 MG TAB PO SCH (09:00)
[2016-12-13] MEDS: ALPRAZolam 0.25 MG TAB PO PRN ×2 (09:12→21:47)
[2016-12-13] MEDS: POTASSIUM CHLOR 20 MEQ PREMIX 100 ML IV SCH ×2 (09:31→12:00)
[2016-12-13] MEDS ORDERED: PHARMACY ORDERED LAB ONE (10:45)
[2016-12-13] MEDS: VANCOMYCIN INJ 1,250 MG in SODIUM CHLOR 0.9% 250 ML INJ 250 ML IV SCH (11:14)
--- NOTE | 2016-12-13 11:14 | HHI.PR ---
Subjective Remarks The pt said her abdominal pain is improved but is still unable to eat because that makes the pain worse. She said she has been moving her extremities well starting yesterday. She needs to know what causes her to have episodes of headache, abdominal pain and weakness all over her body. She is making arrangements to go to the [facility]. Family at the bedside. Objective Vitals Vital Signs Date Time Temp Pulse Resp B/P Pulse Ox O2 Delivery O2 Flow Rate FiO2 12/13/16 10:32 87 12/13/16 08:25 97 21 12/13/16 08:18 98.5 79 17 146/92 96 12/13/16 04:34 99.0 93 21 200/79 94 12/13/16 03:43 18 12/13/16 00:11 98.5 91 21 180/75 94 12/12/16 20:05 98.8 84 22 175/72 96 12/12/16 20:00 85 12/12/16 16:00 99.0 81 17 175/72 93 12/12/16 12:00 97.4 87 17 160/68 93 I/O 12/12/16 12/12/16 12/12/16 12/13/16 12/13/16 12/13/16 07:00 15:00 23:00 07:00 15:00 23:00 Intake Total 60 ml 240 ml Balance 60 ml 240 ml Intake Oral 60 ml 240 ml # Voids 3 5 3 # Bowel Movements 0 3 Result Diagram: 12/13/16 0641 12/13/16 0641 Imaging Last Impressions Abdomen/Pelvis CT 12/12/16 0000 Signed Impressions: Service Date/Time: Monday, December 12, 2016 17:02 - CONCLUSION: 1. Enlarged fatty liver. 2. Moderate sized hiatal hernia. 3. Ventral abdominal wall hernias which contain loops of small bowel but are unchanged compared to the previous examination and result in no small bowel obstruction. 4. Degenerative changes and scoliosis of the lumbar spine. 5. Stable right adnexal cystic lesion measuring 3.8 x 2.5 cm. 6. Minimal streakiness within the left lung base consistent with atelectasis and/or infiltrate. 7. Tiny bilateral pleural effusions are noted. Piter Sauceda MD Abdomen X-Ray 12/11/16 0000 Signed Impressions: Service Date/Time: Sunday, December 11, 2016 17:04 - CONCLUSION: No dilated loops of small or large bowel. John Chisholm MD Chest X-Ray 12/09/16 2301 Signed Impressions: Service Date/Time: Saturday, December 10, 2016 00:09 - CONCLUSION: No acute disease. Stephen Kincaid MD Objective Remarks GENERAL: This is a well-nourished, well-developed patient, in NAD. HEENT: NC, AT. CARDIOVASCULAR: Regular rate and rhythm without murmurs, gallops, or rubs. RESPIRATORY: Clear to auscultation. Breath sounds equal bilaterally. No wheezes , rales, or rhonchi. GASTROINTESTINAL: Abdomen soft, tender in the left flank, nondistended. Normal active bowel sounds MUSCULOSKELETAL: Extremities without clubbing, cyanosis, or edema. NEURO: Alert & Oriented x4 to person, place, time, situation. Moves all ext x4 PSYCH: Mood and affect appropriate. Medications and IVs Current Medications Medications (Trade) Dose Ordered Sig/Amador Route Start Time Stop Time Status Last Admin (NS 1000 ml Inj) 1,000 ml @ 100 mls/hr Q10H IV 12/10/16 01:39 12/12/16 02:12 (NS Flush) 2 ml UNSCH PRN IV FLUSH 12/10/16 01:45 12/12/16 04:51 (NS Flush) 2 ml BID IV FLUSH 12/10/16 09:00 12/13/16 07:59 (Zofran Inj) 4 mg Q6H PRN IVP 12/10/16 01:45 12/13/16 07:58 (Tylenol) 650 mg Q6H PRN PO 12/10/16 01:45 ([place] 5-325 Mg) 1 tab Q4H PRN PO 12/10/16 01:45 12/12/16 14:01 (Dilaudid Pf Inj) 0.5 mg Q3H PRN IV 12/10/16 01:45 12/13/16 09:06 (Rani-Colace) 1 tab BID PO 12/10/16 09:00 12/12/16 21:44 (Milk Of Magnesia Liq) 30 ml Q12H PRN PO 12/10/16 01:45 12/11/16 16:29 (Senokot) 17.2 mg Q12H PRN PO 12/10/16 01:45 (Dulcolax Supp) 10 mg DAILY PRN RECTAL 12/10/16 01:45 (Lactulose Liq) 30 ml DAILY PRN PO 12/10/16 01:45 (Xanax) 0.25 mg Q12HR PRN PO 12/10/16 01:45 12/13/16 09:12 (Aspirin Chew) 81 mg DAILY CHEW 12/10/16 09:00 12/13/16 07:54 (Symbicort 160-4.5 Inh) 1 puff Q12HR INH 12/10/16 09:00 12/13/16 08:02 (CeleXA) 40 mg DAILY PO 12/10/16 09:00 12/13/16 07:57 (Colace) 100 mg BID PO 12/10/16 09:00 12/12/16 21:44 (Zetia) 10 mg DAILY PO 12/10/16 09:00 12/13/16 07:54 Hydroxychloroquine Sulfate 200 mg 200 mg DAILY PO 12/10/16 09:00 12/13/16 07:54 Pharmacy Profile Note 0 ml @ 0 mls/hr UNSCH OTHER 12/10/16 04:00 (Azactam Inj/NS Inj) 100 ml @ 200 mls/hr Q12H IV 12/10/16 09:00 12/13/16 07:59 (Deltasone) 20 mg DAILY PO 12/10/16 09:00 12/13/16 07:57 (D50w (Vial) Inj) 25 ml UNSCH PRN IV PUSH 12/10/16 08:45 Glucagon 1 mg 1 mg UNSCH PRN OTHER 12/10/16 08:45 (Vancomycin Inj/ NS 250 ml Inj) 262.5 ml @ 262.5 mls/ hr Q24H IV 12/10/16 11:00 12/12/16 10:43 Patient Own Medication PT OWN MED: FELODIP... DAILY PO 12/11/16 09:00 Hold (Apresoline) 100 mg TID PO 12/10/16 18:00 12/13/16 07:56 (Catapres) 0.1 mg Q6H PRN PO 12/10/16 16:00 12/13/16 04:31 (Synthroid) 125 mcg DAILY@06 PO 12/11/16 06:00 12/13/16 06:01 (Ambien) 10 mg HS PO 12/11/16 21:00 12/12/16 21:44 (Vasotec Inj) 1.25 mg Q6H PRN IV PUSH 12/12/16 02:00 12/12/16 02:12 (Apresoline) 10 mg Q6HR PRN PO 12/12/16 02:00 12/12/16 22:01 Amlodipine Besylate 5 mg 5 mg DAILY PO 12/12/16 12:15 12/13/16 07:58 (KCl 20 Meq Premix Inj) 100 ml @ 50 mls/hr Q2H IV 12/13/16 10:00 12/13/16 13:59 12/13/16 09:31 A/P Problem List: (1) Sepsis ICD Code: A41.9 Status: Resolved (2) MARIO ALBERTO (acute kidney injury) ICD Code: N17.9 Status: Acute (3) Hypokalemia ICD Code: E87.6 Status: Resolved (4) COPD (chronic obstructive pulmonary disease) ICD Code: J44.9 Status: Acute (5) DM (diabetes mellitus) ICD Code: E11.9 Status: Acute Assessment and Plan Sepsis Temp 101.7 rectal, WBC 16, Lactic Acid 4.4, repeat 2.8. Recent admit for similar, FUO. - follow blood cultures. - continue IV Vanc/ Flagyl/ Azactam. - Follow up with ID. - continue IVFs. - repeat lactate. Severe abdominal pain Has been following with Dr. Rockwell. CT with hernias, no other acute abnormality. Pain is worse with eating so the pt has not been eating much. - pain control with a bowel regimen. - PPI. - consult GI for assistance. - check a UA and lipase level. Generalized weakness The pt has had multiple episodes of paralysis of the upper and lower extremities which resolves after several days. - PT/ OT. - neurology consult requested. Hypokalemia Likely s/t decreased PO intake. - IV KCl x 2 and follow BMP. COPD Chronic respiratory failure, recent admit w/ eval by Dr. Hoskins. Noted to have COPD/Interstitial lung disease. D/c'd on Prednisone taper x3 wks. Breathing well controlled. - will resume Prednisone. - DuoNeb/MDI, oxygen as needed. DM Glucose has been elevated. - Sliding scale w/ Accu-Cheks. - Resume Insulin if stable in light of sepsis. HTN Fluctuates. - increase amlodipine to 10 mg daily. DVT Prophylaxis: SCD/[place]. Discharge Planning Awaiting clinical improvement. Stephen Hodge DO Dec 13, 2016 11:14
[2016-12-13] MEDS ORDERED: amLODIPine BESYLATE 5 MG TAB PO ONE (12:00)
[2016-12-13] MEDS: PANTOPRAZOLE SOD 40 MG DELAYED RELEASE TAB PO SCH (12:00)
[2016-12-13] MEDS: ACETAMINOPHEN/HYDROcodone 325 MG/5 MG TAB PO PRN (12:43)
--- NOTE | 2016-12-13 15:23 | PD.CONS ---
HPI History of Present Illness This is a 75 year old lady w/ hx DM who presented with abdominal pain, weakness , fever. This started . She was feeling very weak and unable to move her extremities. her pain is on the left side, constant at 4/10 with exacerbations 10/10. The pain is crushing and burning. She also has nausea with dry heaves. She says she has had 5 episodes of these symptoms in the last 6 months. She has a hx of colectomy and colostomy reversal with Dr galan and says he sees her every time she comes in. Her last colonoscopy was in the last year with Dr Rockwell and she does not recall results. She had EGD maybe 5 years ago in [place] and recalls no abnormal findings. She did have a BM today and says it was soft, she has been on stool softeners. (Ashtyn Pastrana) PFSH Past Medical History PMH: HTN, Arthritis, Anxiety, Depression, Hyperlipidemia, COPD and DM Past Surgical History PAST SURGICAL HISTORY: colectomy, colostomy reversal, stent placemet, bilateral knee arthroplasty, hysterectomy (Ashtyn Pastrana) Coded Allergies: Egg Allergy (Verified Allergy, Severe, DYSPNEA, SWELLING, 12/09/16) WHEN MIXED WITH CULTURES FOR IMMUNIZATIONS Erythromycin (Verified Allergy, Severe, HIVES, TROUBLE BREATHING, 12/09/16) Iodine (Verified Allergy, Severe, SWELLING, 12/09/16) Molds and Smuts (Verified Allergy, Severe, ITCHING, 12/09/16) DYSPNEA Penicillin (Verified Allergy, Severe, STOPS BREATHING, 12/09/16) Seafood (Verified Allergy, Severe, HIVES, 12/09/16) Sulfa (Verified Allergy, Severe, STOPS BREATHING, "SULFA POISONING", ) Metformin (Verified Adverse Reaction, Severe, DIARRHEA, GASTRIC CRAMPING, 12/09/16) Morphine (Verified Adverse Reaction, Unknown, STATES MAKES HER "TOO SLEEPY " - REFUSES, 12/09/16) Uncoded Allergies: MERCURY (Allergy, Severe, 09/10/16) Family History CVD, CVA Social History no ETOH, tobacco use, illicit drug use (Ashtyn Pastrana) Review of Systems Constitutional: COMPLAINS OF: Fever Eyes: DENIES: Blurred vision Ears, nose, mouth, throat: DENIES: Hearing loss Respiratory: DENIES: Cough Cardiovascular: DENIES: Chest pain Gastrointestinal: COMPLAINS OF: Abdominal pain, Nausea, DENIES: Black stools, Bloody stools, Constipation, Diarrhea, Vomiting, Hematemesis Genitourinary: DENIES: Hematuria Musculoskeletal: DENIES: Muscle aches Integumentary: DENIES: Abnormal pigmentation Neurologic: COMPLAINS OF: Abnormal gait, Localized weakness Psychiatric: COMPLAINS OF: Anxiety (Ashtyn Pastrana) GI Exam Vitals I&O Vital Signs Date Time Temp Pulse Resp B/P Pulse Ox O2 Delivery O2 Flow Rate FiO2 12/13/16 12:00 98.5 88 20 158/72 96 12/13/16 10:32 87 12/13/16 08:25 97 21 12/13/16 08:18 98.5 79 17 146/92 96 12/13/16 04:34 99.0 93 21 200/79 94 12/13/16 03:43 18 12/13/16 00:11 98.5 91 21 180/75 94 12/12/16 20:05 98.8 84 22 175/72 96 12/12/16 20:00 85 12/12/16 16:00 99.0 81 17 175/72 93 I/O 12/12/16 12/12/16 12/12/16 12/13/16 12/13/16 12/13/16 07:00 15:00 23:00 07:00 15:00 23:00 Intake Total 60 ml 240 ml 180 ml Balance 60 ml 240 ml 180 ml Intake Oral 60 ml 240 ml 180 ml # Voids 3 5 3 3 # Bowel Movements 0 3 1 Imaging Last Impressions Abdomen/Pelvis CT 12/12/16 0000 Signed Impressions: Service Date/Time: Monday, December 12, 2016 17:02 - CONCLUSION: 1. Enlarged fatty liver. 2. Moderate sized hiatal hernia. 3. Ventral abdominal wall hernias which contain loops of small bowel but are unchanged compared to the previous examination and result in no small bowel obstruction. 4. Degenerative changes and scoliosis of the lumbar spine. 5. Stable right adnexal cystic lesion measuring 3.8 x 2.5 cm. 6. Minimal streakiness within the left lung base consistent with atelectasis and/or infiltrate. 7. Tiny bilateral pleural effusions are noted. Piter Sauceda MD Abdomen X-Ray 12/11/16 0000 Signed Impressions: Service Date/Time: Sunday, December 11, 2016 17:04 - CONCLUSION: No dilated loops of small or large bowel. John Chisholm MD Chest X-Ray 12/09/16 2336 Signed Impressions: Service Date/Time: Saturday, December 10, 2016 00:09 - CONCLUSION: No acute disease. Stephen Kincaid MD Laboratory Test 12/13/16 06:41 White Blood Count 9.9 TH/MM3 Red Blood Count 3.90 MIL/MM3 Hemoglobin 10.0 GM/DL Hematocrit 31.5 % Mean Corpuscular Volume 80.9 FL Mean Corpuscular Hemoglobin 25.6 PG Mean Corpuscular Hemoglobin 31.7 % Concent Red Cell Distribution Width 17.3 % Platelet Count 457 TH/MM3 Mean Platelet Volume 7.2 FL Neutrophils (%) (Auto) 68.6 % Lymphocytes (%) (Auto) 16.9 % Monocytes (%) (Auto) 13.2 % Eosinophils (%) (Auto) 0.8 % Basophils (%) (Auto) 0.5 % Neutrophils # (Auto) 6.8 TH/MM3 Lymphocytes # (Auto) 1.7 TH/MM3 Monocytes # (Auto) 1.3 TH/MM3 Eosinophils # (Auto) 0.1 TH/MM3 Basophils # (Auto) 0.0 TH/MM3 CBC Comment AUTO DIFF Differential Total Cells 100 Counted Neutrophils % (Manual) 66 % Band Neutrophils % 3 % Lymphocytes % 20 % Monocytes % 6 % Basophils % 1 % Neutrophils # (Manual) 7.2 TH/MM3 Metamyelocytes 4 % Nucleated Red Blood Cells 1 /100 WBC Differential Comment FINAL DIFF MANUAL Platelet Estimate HIGH Platelet Morphology Comment NORMAL Sodium Level 135 MEQ/L Potassium Level 2.9 MEQ/L Chloride Level 98 MEQ/L Carbon Dioxide Level 27.5 MEQ/L Anion Gap 10 MEQ/L Blood Urea Nitrogen 8 MG/DL Creatinine 0.57 MG/DL Estimat Glomerular Filtration 103 ML/MIN Rate Random Glucose 160 MG/DL Calcium Level 8.0 MG/DL Vancomycin Level Trough 5.3 MCG/ML Date/Time Procedure Status Source Growth 12/09/16 23:58 Influenza Types A,B Antigen (KATHY) - Final Complete Nasal Aspirate NEGATIVE FOR FLU A AND B ANTIGEN.... 12/09/16 23:46 Aerobic Blood Culture - Preliminary Resulted Blood Peripheral NO GROWTH IN 3 DAYS 12/09/16 23:46 Anaerobic Blood Culture - Preliminary Resulted Blood Peripheral NO GROWTH IN 3 DAYS 12/09/16 23:36 Aerobic Blood Culture Received Blood Peripheral Pending 12/09/16 23:36 Anaerobic Blood Culture Received Blood Peripheral Pending Physical Examination HEENT: EOMI; normocephalic; atraumatic; no jaundice. CHEST: CTA CARDIAC: RRR ABDOMEN: Soft, obese, voluntary guarding, diffuse TTP; no hepatosplenomegaly; bowel sounds are present in all four quadrants. EXTREMITIES: No clubbing, cyanosis, or edema. SKIN: Normal; no rash; no jaundice. BUILD ENGINEER: No focal deficits; alert and oriented times three. (Ashtyn Pastrana) Assessment and Plan Plan ASSESSMENT - abdominal pain - left side constant pain with exacerbations. has nausea as well, 5 x episodes of this in last [address] gives no indication of cause of pain. Colonoscopy in last year, cannot recall findings. hx bowel surgery with Dr Rockwell - leukocytosis - improving, on abx ID following PLAN - EGD - amylase - obtain consents - NPO after midnight - further recommendations to follow This pt seen by myself and Dr Cesar and this note is written on his behalf ( Ashtyn Pastrana) Physician Comments Seen and examined with MIKE, extremely anxious seen in the presence of family. Recent Colonoscopy reported as normal. EGD planned for tomorrow. Thank you ( Ezra Cesar MD) Ashtyn Pastrana Dec 13, 2016 15:23 Ezra Cesar MD Dec 14, 2016 13:02
--- NOTE | 2016-12-13 15:24 | MB ---
cc: SCOTTIE VENTURA M.D. DATE OF CONSULTATION: 12/13/2016 HISTORY OF PRESENT ILLNESS The patient is a 75-year-old seen in neurological consultation because of generalized weakness. This woman is accompanied by her sister and also her . She admits to a lot of stress. The apparently has some degree of dementia. The patient [place] and whenever she tries to make arrangements to go up there something goes wrong. The patient describes that she has had five times a similar problem. She starts with pain in her left-sided abdomen and she then describes that she has some stiffening in her legs, unable to move the legs, and then her symptoms travel to involve the arms, the neck and the head. She may have a high fever with this. Her pain travels everywhere. She has been taking pain medications at home and here in the hospital is getting Dilaudid. She apparently was here between October 27 and November 07 for a fever of undetermined origin, and at that time had a negative lumbar puncture. It was thought she may have had a fever from rheumatoid arthritis rather than infection. PAST MEDICAL HISTORY She has a history of hypertension, arthritis, COPD, diabetes and hyperlipidemia. She admits to panic attacks. She says she loses control and her thinking process is completely uncontrolled and this is something she brought herself during the visit. She may be shaking all over and she is unable to perform during such episodes. She has taken Xanax in the past for this. It appears that she came in with a temperature of 101.7. She is followed by Infectious Disease. NEUROLOGICAL EXAMINATION The patient is awake, alert, anxious, but pleasant and oriented. Ocular movements and visual white full. Slight flattening on the left nasolabial fold of probable no significance. Pupils about the same size reactive. Speech and language normal. She appears to be bright mentally and the family denies any cognitive problems. She has a good clerical aide and she is moving the lower extremities well. Status post knee surgeries. She is moderately overweight. The reflexes were present at the biceps bilaterally, difficult to elicit at the knees because of prior surgery. Ankle reflexes are absent and plantar response is flexor. She resisted reasonably well with the distal lower extremities. According to the nursing staff the patient has been walking without problems today. LABORATORY DATA Current labs are seen. On 12/11/2016 her sodium and potassium were normal. Today sodium is 135, potassium 2.9. Glucose on admission was 121, calcium 8.1 and today is 8.0. BUN and creatinine normal. CBC on 12/09/2016 is white count 16.5, hemoglobin 11.3, platelets 440. Sed rate 34. Urinalysis on 12/10/[address] of the abdomen and pelvis appears to show no acute abnormality. ASSESSMENT Generalized weakness. Her symptomatology is extensive and evidently difficult to put together. Today she had a low potassium but a couple of days ago her potassium was normal and that is unlikely to be related to a hypokalemic periodic paralysis. On the when he came in her potassium was 3.2. She has an array of symptoms. There is a history of panic attacks and I suspect that a lot of her neurologic symptoms are related to anxiety and panic disorder. RECOMMENDATIONS I am going to request an EEG on her and nothing else from a neurological standpoint except for a CPK and a sed rate. She is planning on going to the [facility] after this hospitalization. I would also suggest considering some [id number] anti-anxiety medication/care after all her medical problems are improved/cleared, specifically the abdominal complaints and the infectious disease evaluation. Thank you for asking us to assist in her care. Scottie Ventura MD OFC/BT /2:56 PM /3:11 PM
[2016-12-13 16:17] LABS: BLOOD, URINE NEG (NEG); GLUCOSE,URINE 300 mg/dL (NEG); KETONE, URINE 10 mg/dL (NEG); MUCUS URINE FEW /lpf (OCC); NITRITE,URINE NEG (NEG); SQUAMOUS EPITHELIAL CELL URINE <1 /hpf (0-5); URINE COLOR YELLOW (YELLW/STRAW)
[2016-12-13 16:18] LABS: COMMENT (UR) CULT NOT INDICATED; CULTURE IF INDICATED CULT NOT INDICATED
[2016-12-13 18:39] LABS: BICARBONATE 25.5 MEQ/L (21.0-32.0); POTASSIUM 3.6 MEQ/L (3.5-5.1)
[2016-12-13 21:04] LABS: CREATINE KINASE 120 U/L (26-192)
[2016-12-13] MEDS: ZOLPIDEM TARTRATE 10 MG TAB PO SCH (21:19)
[2016-12-13] MEDS: VANCOMYCIN INJ 1,500 MG in SODIUM CHLORID 0.9% 500 ML INJ 500 ML IV SCH (23:06)
[2016-12-14] VITALS (10 sets, daily range): BP systolic 138–189; BP diastolic 61–117; PULSE 66–90; RESP 18–23; TEMP 97.7–99.1; O2SAT 92–98
[2016-12-14] MEDS: hydrALAZINE HCL 10 MG TAB PO PRN (00:22)
[2016-12-14] MEDS: SODIUM CHLOR 0.9% 1000 ML INJ 1,000 ML IV SCH (04:48)
[2016-12-14] MEDS: INSULIN NovoLIN REGULAR SUPPLEMENTAL SCALE SQ SCH ×4 (05:40→20:54)
[2016-12-14] MEDS: LEVOTHYROXINE SODIUM 125 MCG TAB PO SCH (05:40)
[2016-12-14] MEDS: RESP: ALBUTEROL 2.5 MG/3 ML NEB (SCH) NEB ×4 (08:00→20:00)
[2016-12-14] MEDS ORDERED: MIDAZOLAM HCL 2 MG/2 ML VIAL IV ONE (08:42)
[2016-12-14] MEDS ORDERED: PROPOFOL 200 MG/20 ML AMP IV PUSH ONE (08:50)
[2016-12-14] MEDS: SODIUM CHLORIDE 0.9% FLUSH 10 ML FLUSH IV FLUSH SCH ×2 (09:00→20:49)
[2016-12-14] MEDS: BUDESONIDE-FORMOTEROL 160/4.5 MCG INHALER INH SCH ×2 (09:00→20:48)
[2016-12-14] MEDS: ASPIRIN 81 MG CHEW TAB CHEW SCH (09:00)
[2016-12-14] MEDS: CITALOPRAM HYDROBROMIDE 20 MG TAB PO SCH (10:02)
[2016-12-14] MEDS: PANTOPRAZOLE SOD 40 MG DELAYED RELEASE TAB PO SCH (10:02)
[2016-12-14] MEDS: hydrALAZINE HCL 100 MG TAB PO SCH ×3 (10:02→17:14)
[2016-12-14] MEDS: DOCUSATE SODIUM 50 MG/SENNA 8.6 MG TAB PO SCH ×3 (10:02→20:59)
[2016-12-14] MEDS: predniSONE 20 MG TAB PO SCH (10:02)
[2016-12-14] MEDS: EZETIMIBE 10 MG TAB PO SCH (10:02)
[2016-12-14] MEDS: HYDROXYCHLOROQUINE SULFATE 200 MG TAB PO SCH (10:02)
[2016-12-14] MEDS: DOCUSATE SODIUM 100 MG CAP PO SCH ×3 (10:02→20:59)
[2016-12-14] MEDS: AZTREONAM INJ 2,000 MG in SODIUM CHLORIDE 0.9% INJ 100 ML IV SCH (10:03)
[2016-12-14] MEDS: ALPRAZolam 0.25 MG TAB PO PRN ×2 (11:18→23:48)
[2016-12-14] MEDS: VANCOMYCIN INJ 1,500 MG in SODIUM CHLORID 0.9% 500 ML INJ 500 ML IV SCH (11:19)
[2016-12-14 12:17] LABS: HEMATOCRIT 33.3 % (35.0-46.0); MEAN CELL VOLUME 80.6 FL (80.0-100.0); MEAN CORPUSCULAR HEMOGLOBIN 25.3 PG (27.0-34.0); MEAN CORPUSCULAR HGB CONC 31.4 % (32.0-36.0); PLATELET COUNT 499 TH/MM3 (150-450); RED BLOOD COUNT 4.13 MIL/MM3 (4.00-5.30); RED CELL DISTRIBUTION WIDTH 17.4 % (11.6-17.2); REVIEW FLAG FINAL; WHITE BLOOD COUNT 12.7 TH/MM3 (4.0-11.0)
[2016-12-14 12:32] LABS: MAGNESIUM 1.8 MG/DL (1.5-2.5); POTASSIUM 3.2 MEQ/L (3.5-5.1)
--- NOTE | 2016-12-14 13:08 | HHI.PR ---
Subjective Remarks The patient was feeling depressed. She tolerated the EGD well. She says she has significant anxiety that is hard to control. Discussed with family at the bedside. Objective Vitals Vital Signs Date Time Temp Pulse Resp B/P Pulse Ox O2 Delivery O2 Flow Rate FiO2 12/14/16 12:00 99.1 85 21 189/78 92 12/14/16 09:39 81 12/14/16 09:15 67 18 188/68 98 12/14/16 09:06 77 18 159/71 98 12/14/16 08:55 98.1 84 18 172/67 99 12/14/16 08:18 98.5 89 20 180/117 95 12/14/16 08:00 98.5 86 21 180/117 93 12/14/16 04:15 98.0 68 23 145/76 98 12/14/16 01:30 79 12/14/16 00:15 98.1 66 19 164/75 96 12/13/16 22:48 20 12/13/16 20:45 98.6 64 19 173/77 95 12/13/16 16:15 98.1 87 16 169/70 95 I/O 12/13/16 12/13/16 12/13/16 12/14/16 12/14/16 12/14/16 07:00 15:00 23:00 07:00 15:00 23:00 Intake Total 180 ml 1749 ml 700 ml 100 ml Balance 180 ml 1749 ml 700 ml 100 ml Intake Oral 180 ml 675 ml 700 ml IV Total 1074 ml Other 100 ml # Voids 3 1 3 # Bowel Movements 1 0 0 Result Diagram: 12/14/16 1157 12/14/16 1157 Imaging Last Impressions Abdomen/Pelvis CT 12/12/16 0000 Signed Impressions: Service Date/Time: Monday, December 12, 2016 17:02 - CONCLUSION: 1. Enlarged fatty liver. 2. Moderate sized hiatal hernia. 3. Ventral abdominal wall hernias which contain loops of small bowel but are unchanged compared to the previous examination and result in no small bowel obstruction. 4. Degenerative changes and scoliosis of the lumbar spine. 5. Stable right adnexal cystic lesion measuring 3.8 x 2.5 cm. 6. Minimal streakiness within the left lung base consistent with atelectasis and/or infiltrate. 7. Tiny bilateral pleural effusions are noted. Piter Sauceda MD Abdomen X-Ray 12/11/16 0000 Signed Impressions: Service Date/Time: Sunday, December 11, 2016 17:04 - CONCLUSION: No dilated loops of small or large bowel. John Chisholm MD Chest X-Ray 12/09/16 2336 Signed Impressions: Service Date/Time: Saturday, December 10, 2016 00:09 - CONCLUSION: No acute disease. Stephen Kincaid MD Objective Remarks GENERAL: This is a well-nourished, well-developed patient, in NAD. HEENT: NC, AT. CARDIOVASCULAR: Regular rate and rhythm without murmurs, gallops, or rubs. RESPIRATORY: Clear to auscultation. Breath sounds equal bilaterally. No wheezes , rales, or rhonchi. GASTROINTESTINAL: Abdomen soft, tender diffusely, nondistended. Normal active bowel sounds. MUSCULOSKELETAL: Extremities without clubbing, cyanosis, or edema. NEURO: Alert & Oriented x4 to person, place, time, situation. Moves all ext x4. PSYCH: Flattened affect. Procedures EGD 12/14 Medications and IVs Current Medications Medications (Trade) Dose Ordered Sig/Amador Route Start Time Stop Time Status Last Admin (NS 1000 ml Inj) 1,000 ml @ 100 mls/hr Q10H IV 12/10/16 01:39 12/12/16 02:12 (NS Flush) 2 ml UNSCH PRN IV FLUSH 12/10/16 01:45 12/12/16 04:51 (NS Flush) 2 ml BID IV FLUSH 12/10/16 09:00 12/14/16 09:00 (Zofran Inj) 4 mg Q6H PRN IVP 12/10/16 01:45 12/13/16 14:15 (Tylenol) 650 mg Q6H PRN PO 12/10/16 01:45 (Mead 5-325 Mg) 1 tab Q4H PRN PO 12/10/16 01:45 12/13/16 12:43 (Dilaudid Pf Inj) 0.5 mg Q3H PRN IV 12/10/16 01:45 12/13/16 21:47 (Rani-Colace) 1 tab BID PO 12/10/16 09:00 12/14/16 10:02 (Milk Of Magnesia Liq) 30 ml Q12H PRN PO 12/10/16 01:45 12/11/16 16:29 (Senokot) 17.2 mg Q12H PRN PO 12/10/16 01:45 (Dulcolax Supp) 10 mg DAILY PRN RECTAL 12/10/16 01:45 (Lactulose Liq) 30 ml DAILY PRN PO 12/10/16 01:45 (Xanax) 0.25 mg Q12HR PRN PO 12/10/16 01:45 12/14/16 11:18 (Aspirin Chew) 81 mg DAILY CHEW 12/10/16 09:00 12/13/16 07:54 (Symbicort 160-4.5 Inh) 1 puff Q12HR INH 12/10/16 09:00 12/14/16 09:00 (CeleXA) 40 mg DAILY PO 12/10/16 09:00 12/14/16 10:02 (Colace) 100 mg BID PO 12/10/16 09:00 12/14/16 10:02 (Zetia) 10 mg DAILY PO 12/10/16 09:00 12/14/16 10:02 Hydroxychloroquine Sulfate 200 mg 200 mg DAILY PO 12/10/16 09:00 12/14/16 10:02 Pharmacy Profile Note 0 ml @ 0 mls/hr UNSCH OTHER 12/10/16 04:00 (Azactam Inj/NS Inj) 100 ml @ 200 mls/hr Q12H IV 12/10/16 09:00 12/14/16 10:03 (Deltasone) 20 mg DAILY PO 12/10/16 09:00 12/14/16 10:02 (D50w (Vial) Inj) 25 ml UNSCH PRN IV PUSH 12/10/16 08:45 (Glucagon Inj) 1 mg UNSCH PRN OTHER 12/10/16 08:45 Patient Own Medication PT OWN MED: FELODIP... DAILY PO 12/11/16 09:00 Hold (Apresoline) 100 mg TID PO 12/10/16 18:00 12/14/16 11:20 (Catapres) 0.1 mg Q6H PRN PO 12/10/16 16:00 12/13/16 04:31 (Synthroid) 125 mcg DAILY@06 PO 12/11/16 06:00 12/14/16 05:40 (Ambien) 10 mg HS PO 12/11/16 21:00 12/13/16 21:19 (Vasotec Inj) 1.25 mg Q6H PRN IV PUSH 12/12/16 02:00 12/12/16 02:12 Hydralazine HCl 10 mg 10 mg Q6HR PRN PO 12/12/16 02:00 12/14/16 00:22 (Vancomycin Inj/ NS 500 ml Inj) 515 ml @ 250 mls/hr Q12H IV 12/13/16 23:00 12/14/16 11:19 Miscellaneous Information SPECIFIC LAB TO BE DRAWN:VANCOMYCIN TROUGH DATE TO... ONCE ONCE .XX 12/15/16 10:45 12/15/16 10:46 (Protonix) 40 mg DAILY PO 12/13/16 12:00 12/14/16 10:02 (Norvasc) 10 mg DAILY PO 12/14/16 09:00 12/14/16 10:02 A/P Problem List: (1) Sepsis ICD Code: A41.9 Status: Resolved (2) MARIO ALBERTO (acute kidney injury) ICD Code: N17.9 Status: Acute (3) Hypokalemia ICD Code: E87.6 Status: Resolved (4) COPD (chronic obstructive pulmonary disease) ICD Code: J44.9 Status: Acute (5) DM (diabetes mellitus) ICD Code: E11.9 Status: Acute Assessment and Plan Sepsis Temp 101.7 rectal, WBC 16, Lactic Acid 4.4, repeat level normal. Recent admit for similar, FUO. - follow blood cultures. - continue IV Vanc/ Flagyl/ Azactam. - Follow up with ID. Severe abdominal pain Has been following with Dr. Rockwell. CT with hernias, no other acute abnormality. Pain is worse with eating so the pt has not been eating much. GI consult appreciated. EGD with esophagitis and gastritis. - pain control with a bowel regimen. - PPI. - biopsies pending. Follow up with GI. Generalized weakness The pt has had multiple episodes of paralysis of the upper and lower extremities which resolves after several days. Neurology consult appreciated. - PT/ OT. - EEG per neurology. Hypokalemia Likely s/t decreased PO intake. - replete and follow BMP. COPD Chronic respiratory failure, recent admit w/ eval by Dr. Hoskins. Noted to have COPD/Interstitial lung disease. D/c'd on Prednisone taper x3 wks. Breathing well controlled. - will resume Prednisone. - DuoNeb/MDI, oxygen as needed. DM Glucose has been elevated. - Sliding scale w/ Accu-Cheks. - Resume Insulin if stable in light of sepsis. HTN Fluctuates. - increase amlodipine to 10 mg daily. - start lisinopril 10 mg daily. Anxiety/ Depression The pt has depression and is prone to panic attacks. Question if contributing to symptomatology. - psychiatry consult requested. DVT Prophylaxis: SCD/Erwin. Discharge Planning Awaiting clinical improvement. Stephen Hodge DO Dec 14, 2016 13:08
[2016-12-14] MEDS: LISINOPRIL 10 MG TAB PO SCH (13:38)
[2016-12-14] MEDS: POTASSIUM CHLORIDE 20 MEQ CONTROLLED RELEASE TAB PO SCH ×2 (13:38→16:24)
[2016-12-14] MEDS: HYDROmorphone HCL PF 1 MG/ML VIAL IV PRN ×2 (13:38→22:12)
--- NOTE | 2016-12-14 15:26 | HHI.IDPN ---
Note Infectious Disease Note Patient just walked hallways with her . Says that her legs feel heavy. Also complains of pain at the back of her head. Afebrile. BM this am. Had EGD yesterday. Had EEG yesterday. All cultures are negative. Says she feels depressed and sometimes her thoughts are racing. Presented to the emergency department with fever and diffuse body aches and pains. The patient stated that she was doing well up until the evening before presenting to the emergency department where after she ate dinner, she developed severe pains and aches and had difficulty moving her legs and she had neck pain and neck stiffness and temperature stephan to 103 degrees. She notes that the difficulty in her legs was such that she was having difficulty getting off the couch and the pain became very severe. This is one of multiple admissions for this patient. She was recently admitted to the hospital in October with similar symptoms. PAST MEDICAL HISTORY 1. Rheumatoid arthritis, 2. Fibromyalgia, 3. Hypertension, 4. Diabetes mellitus, 5. Hypothyroidism, 7. Hyperlipidemia, 8. Gastroesophageal reflux disease, 9. Psoriasis, 10. Asthma, 11. Bilateral knee replacement, 12. Hysterectomy, 13. Cardiac stent 14. Sigmoid resection 15. Ventral hernia repair. ALLERGIES PENICILLIN ERYTHROMYCIN MORPHINE METFORMIN SULFA IODINE SEAFOOD MOLD EGGS. MEDICATIONS Vancomycin. Azactam. OBJECTIVE: Vital Signs Date Time Temp Pulse Resp B/P Pulse Ox O2 Delivery O2 Flow Rate FiO2 12/14/16 12:00 99.1 85 21 189/78 92 12/14/16 09:39 81 12/14/16 09:15 67 18 188/68 98 12/14/16 09:06 77 18 159/71 98 12/14/16 08:55 98.1 84 18 172/67 99 12/14/16 08:18 98.5 89 20 180/117 95 12/14/16 08:00 98.5 86 21 180/117 93 12/14/16 04:15 98.0 68 23 145/76 98 12/14/16 01:30 79 12/14/16 00:15 98.1 66 19 164/75 96 12/13/16 22:48 20 12/13/16 20:45 98.6 64 19 173/77 95 12/13/16 16:15 98.1 87 16 169/70 95 12/13/16 12/13/16 12/14/16 15:00 23:00 07:00 Intake Total 180 ml 1749 ml 700 ml Balance 180 ml 1749 ml 700 ml Intake Oral 180 ml 675 ml 700 ml IV Total 1074 ml # Voids 3 1 3 # Bowel Movements 1 0 0 Laboratory Tests Test 12/13/16 12/14/16 06:41 11:57 White Blood Count 9.9 TH/MM3 12.7 TH/MM3 Red Blood Count 3.90 MIL/MM3 4.13 MIL/MM3 Hemoglobin 10.0 GM/DL 10.5 GM/DL Hematocrit 31.5 % 33.3 % Mean Corpuscular Volume 80.9 FL 80.6 FL Mean Corpuscular Hemoglobin 25.6 PG 25.3 PG Mean Corpuscular Hemoglobin 31.7 % 31.4 % Concent Red Cell Distribution Width 17.3 % 17.4 % Platelet Count 457 TH/MM3 499 TH/MM3 Mean Platelet Volume 7.2 FL 7.2 FL Neutrophils (%) (Auto) 68.6 % Lymphocytes (%) (Auto) 16.9 % Monocytes (%) (Auto) 13.2 % Eosinophils (%) (Auto) 0.8 % Basophils (%) (Auto) 0.5 % Neutrophils # (Auto) 6.8 TH/MM3 Lymphocytes # (Auto) 1.7 TH/MM3 Monocytes # (Auto) 1.3 TH/MM3 Eosinophils # (Auto) 0.1 TH/MM3 Basophils # (Auto) 0.0 TH/MM3 CBC Comment AUTO DIFF Differential Total Cells 100 Counted Neutrophils % (Manual) 66 % Band Neutrophils % 3 % Lymphocytes % 20 % Monocytes % 6 % Basophils % 1 % Neutrophils # (Manual) 7.2 TH/MM3 Metamyelocytes 4 % Nucleated Red Blood Cells 1 /100 WBC Differential Comment FINAL DIFF MANUAL Platelet Estimate HIGH Platelet Morphology Comment NORMAL Laboratory Tests Test 12/13/16 12/13/16 12/14/16 06:41 17:37 11:57 Sodium Level 135 MEQ/L 136 MEQ/L 138 MEQ/L Potassium Level 2.9 MEQ/L 3.6 MEQ/L 3.2 MEQ/L Chloride Level 98 MEQ/L 100 MEQ/L 101 MEQ/L Carbon Dioxide Level 27.5 MEQ/L 25.5 MEQ/L 27.0 MEQ/L Anion Gap 10 MEQ/L 11 MEQ/L 10 MEQ/L Blood Urea Nitrogen 8 MG/DL 8 MG/DL 6 MG/DL Creatinine 0.57 MG/DL 0.59 MG/DL 0.60 MG/DL Estimat Glomerular Filtration 103 ML/MIN 99 ML/MIN 97 ML/MIN Rate Random Glucose 160 MG/DL 213 MG/DL 208 MG/DL Calcium Level 8.0 MG/DL 8.4 MG/DL 8.2 MG/DL Total Creatine Kinase 120 U/L Lipase 48 U/L Vitamin B12 Level 563 PG/ML Lactic Acid Level 1.4 mmol/L Magnesium Level 1.8 MG/DL Amylase Level 15 U/L IMAGING: Abdomen X-Ray 12/11/16 0000 Signed Impressions: Service Date/Time: Sunday, December 11, 2016 17:04 - CONCLUSION: No dilated loops of small or large bowel. John Chisholm MD Chest X-Ray 12/09/16 2336 Signed Impressions: Service Date/Time: Saturday, December 10, 2016 00:09 - CONCLUSION: No acute disease. Stephen Kincaid MD PHYSICAL EXAMINATION GENERAL: No acute distress. HEENT: Extraocular movements grossly intact, pupils reactive to light. No icterus. Oropharynx - no visible lesions. Moist mucosa. NECK: Supple. No adenopathy. LUNGS: Clear breath sounds. HEART: Regular S1 and S2 without murmurs, rubs or gallops. ABDOMEN: Bowel sounds present, soft, tender to palpation at the left lower quadrant. EXTREMITIES: No clubbing, cyanosis or edema. Severe tenderness on of the lower extremities. SKIN: No rash. NEUROLOGIC: Awake and alert. improved strength of the lower extremities. PSYCH: Depressed mood. IMPRESSION 1. Sepsis indicated by fever, elevated white blood cell count, elevated lactic acid. No clear source of infection. Negative cultures. 2. Febrile illness ? etiology, recurrent, episodic. Recent treatment for pneumonia. Temp resolved and cultures are negative. 3. Possible autoimmune disease explanation for the patient's fever which is accompanied by weakness of the extremities and diffuse joint aches and pains. 4. Abdominal pain. ? etiology. RECOMMENDATIONS 1. Stop vancomycin since cultures are negative. 2. Stop Azactam since cultures are negative. 3. Monitor temps. If temps are normal she can be released without antibiotics. 4. Ambulation. Hunter Hawley MD Dec 14, 2016 15:26
--- NOTE | 2016-12-14 17:30 | MG ---
cc: KEVIN FUNEZ M.D. Lab No: Date: 12/14/2016 Age: Sex: F Race: DATE OF 1940, 75 years old ELECTROENCEPHALOGRAM NUMBER [id number] Ann. ROOM 1514 INDICATION Awake, very anxious, GI pain. Photic stimulation done. Stopped at 15 Hz due to the patient saying it was making her head hurt. There is no imaging. A 75-year-old woman with multiple episodes of not being able to move her upper and lower extremities for multiple days accompanied by severe pain. History of hypothyroidism, neuropathy, cardiac stents, irregular heart beat, depression, arthritis, anxiety. MEDICATIONS On: 1. Ambien. 2. [place]. 3. Dilaudid. 4. Xanax. 5. Prednisone. 6. Vasotec. 7. Celexa. 8. Zetia. 9. Plaquenil. 10. Aztreonam. DESCRIPTION OF RECORD There is an alpha rhythm of 9 Hz, 20-40 microvolts. A lot of muscle jitter artifact. EKG does look sinus. No epileptic activity noted. A lot of eye flutter. Photic stimulation was started but stopped due to the patient complaining that it made her head hurt. IMPRESSION Normal EEG. No epileptic activity seen in this recording. Clinical correlation. MD JEANIE Lockhart/JUMANA /1:56 PM /5:18 PM
[2016-12-14] MEDS: ZOLPIDEM TARTRATE 10 MG TAB PO SCH (20:42)
[2016-12-14] MEDS: ACETAMINOPHEN/HYDROcodone 325 MG/5 MG TAB PO PRN (20:42)
[2016-12-14] MEDS: ONDANSETRON HCL 4 MG/2 ML VIAL IVP PRN (20:42)
[2016-12-14] MEDS: cloNIDine HCL 0.1 MG TAB PO PRN (20:48)
[2016-12-15] VITALS (10 sets, daily range): BP systolic 141–214; BP diastolic 64–98; PULSE 68–88; RESP 18–23; TEMP 97.5–98.8; O2SAT 93–97
[2016-12-15 03:12] LABS: AUTOMATED NEUTROPHIL # 7.3 TH/MM3 (1.8-7.7); BASOPHIL # 0.1 TH/MM3 (0-0.2); BASOPHIL % 0.5 % (0.0-2.0); EOSINOPHIL # 0.1 TH/MM3 (0-0.4); EOSINOPHIL % 0.6 % (0.0-4.0); LYMPHOCYTE # 2.1 TH/MM3 (1.0-4.8); MEAN CELL VOLUME 81.1 FL (80.0-100.0); MEAN CORPUSCULAR HEMOGLOBIN 25.1 PG (27.0-34.0); MEAN CORPUSCULAR HGB CONC 30.9 % (32.0-36.0); NEUT % 64.9 % (16.0-70.0); PLATELET COUNT 478 TH/MM3 (150-450); RED BLOOD COUNT 3.82 MIL/MM3 (4.00-5.30); RED CELL DISTRIBUTION WIDTH 17.9 % (11.6-17.2); WHITE BLOOD COUNT 11.3 TH/MM3 (4.0-11.0)
[2016-12-15 03:13] LABS: HEMO FLAGS AUTO DIFF
[2016-12-15 04:00] LABS: PLATELET MORPHOLOGY NORMAL (NORMAL); SCAN/DIFF AUTO DIFF CONFIRMED
[2016-12-15 04:01] LABS: PLATELET ESTIMATE SMEAR HIGH (NORMAL)
[2016-12-15 04:04] LABS: TOXIC GRANULATION 1+ (NORMAL)
[2016-12-15 04:36] LABS: POTASSIUM 3.5 MEQ/L (3.5-5.1)
[2016-12-15] MEDS ORDERED: POTASSIUM CHLORIDE 25 MEQ EFFERVESCENT TAB PO ONE (06:00)
[2016-12-15] MEDS: INSULIN NovoLIN REGULAR SUPPLEMENTAL SCALE SQ SCH ×4 (06:20→20:53)
[2016-12-15] MEDS: LEVOTHYROXINE SODIUM 125 MCG TAB PO SCH (06:21)
[2016-12-15] MEDS: RESP: ALBUTEROL 2.5 MG/3 ML NEB (SCH) NEB ×3 (08:00→19:18)
[2016-12-15] MEDS: DOCUSATE SODIUM 100 MG CAP PO SCH ×2 (09:00→20:52)
[2016-12-15] MEDS: DOCUSATE SODIUM 50 MG/SENNA 8.6 MG TAB PO SCH ×2 (09:00→20:52)
[2016-12-15] MEDS: HYDROXYCHLOROQUINE SULFATE 200 MG TAB PO SCH (10:31)
[2016-12-15] MEDS: predniSONE 20 MG TAB PO SCH (10:32)
[2016-12-15] MEDS: ASPIRIN 81 MG CHEW TAB CHEW SCH (10:32)
[2016-12-15] MEDS: PANTOPRAZOLE SOD 40 MG DELAYED RELEASE TAB PO SCH (10:33)
[2016-12-15] MEDS: EZETIMIBE 10 MG TAB PO SCH (10:33)
[2016-12-15] MEDS: ALPRAZolam 0.25 MG TAB PO PRN (10:34)
[2016-12-15] MEDS: LISINOPRIL 10 MG TAB PO SCH (10:34)
[2016-12-15] MEDS: hydrALAZINE HCL 100 MG TAB PO SCH ×3 (10:34→17:50)
[2016-12-15] MEDS: CITALOPRAM HYDROBROMIDE 20 MG TAB PO SCH (10:34)
[2016-12-15] MEDS: BUDESONIDE-FORMOTEROL 160/4.5 MCG INHALER INH SCH ×2 (10:40→20:52)
[2016-12-15] MEDS: SODIUM CHLORIDE 0.9% FLUSH 10 ML FLUSH IV FLUSH SCH ×2 (10:41→20:52)
[2016-12-15] MEDS: HYDROmorphone HCL PF 1 MG/ML VIAL IV PRN ×4 (10:42→22:17)
[2016-12-15] MEDS ORDERED: PHARMACY ORDERED LAB ONE (10:45)
[2016-12-15] MEDS ORDERED: LISINOPRIL 10 MG TAB PO ONE (13:15)
--- NOTE | 2016-12-15 13:37 | PD.CONS ---
Provisional Diagnosis Admission Date Dec 10, 2016 at 01:25 Saline I. Adjustment disorder with anxiety. History of Present Illness Service [facility] Jeimy Fontenot MD HPI 75-year-old female with multiple medical issues expressing concerns regarding depression and anxiety. Apparently yesterday was a bad day and the patient is feeling much better today. She would like to be able to take the Xanax in the afternoon and this physician agrees. Her dose of Xanax is very small and she should be able to take it every 6 hours. Review of Systems Except as stated in HPI: all other systems reviewed are Neg Past Family Social History Coded Allergies: Egg Allergy (Verified Allergy, Severe, DYSPNEA, SWELLING, 12/09/16) WHEN MIXED WITH CULTURES FOR IMMUNIZATIONS Erythromycin (Verified Allergy, Severe, HIVES, TROUBLE BREATHING, 12/09/16) Iodine (Verified Allergy, Severe, SWELLING, 12/09/16) Molds and Smuts (Verified Allergy, Severe, ITCHING, 12/09/16) DYSPNEA Penicillin (Verified Allergy, Severe, STOPS BREATHING, 12/09/16) Seafood (Verified Allergy, Severe, HIVES, 12/09/16) Sulfa (Verified Allergy, Severe, STOPS BREATHING, "SULFA POISONING", ) Metformin (Verified Adverse Reaction, Severe, DIARRHEA, GASTRIC CRAMPING, 12/09/16) Morphine (Verified Adverse Reaction, Unknown, STATES MAKES HER "TOO SLEEPY " - REFUSES, 12/09/16) Uncoded Allergies: MERCURY (Allergy, Severe, 09/10/16) Active Scripts Prednisone 5 Mg Tab5 Mg PO DAILY #4 TAB Ref 0 start after completing the 20 mg tablets. Prov:Noris Marquez MD 11/07/16 Prednisone 20 Mg Tab30 Mg PO DIRECTED #18 TAB Ref 0 take 1.5 tab (30 mg) for 6 days then 1 tab (20 mg) for 6 days then 0.5 tab (10 mg) for 6 days then take 5mg tab for 4 days Prov:Noris Marquez MD 11/07/16 [Hydralazine Hcl] (Apresoline)100 MG TAB No Conflict [id number] Mg PO TID #90 TAB Ref 0 Prov:Noris Marquez MD 11/07/16 Hydrocodone-Acetaminophen 5-325 mg Tab1 Tab PO Q6H PRN (PAIN) #20 TAB Ref 0 Prov:Noris Marquez MD 11/07/16 Docusate Sodium (Dok)100 Mg [id number] Mg PO BID #60 CAP Prov:Anat Watt MD 05/17/16 Reported Medications Zolpidem 10 Mg Tab10 Mg PO HS PRN (INSOMNIA) Ref 0 12/11/16 Insulin Glargine Inj (Lantus Solostar Pen Inj)300 Unit/3 Ml Pen55 Units SQ BID Ref 0 12/09/16 Albuterol 8.5 GM Inh (Proair Hfa 8.5 GM Inh)90 Mcg/Act Aer1 Puff INH Q4H PRN ( SHORTNESS OF BREATH) #1 INHALER Ref 0 108 mcg/actuation 10/11/16 Hydroxychloroquine 200 Mg Zwz249 Mg PO DAILY #30 TAB Ref 0 Takw with food 10/11/16 [Astelin Nasal] No Conflict Check 10/11/16 Aspirin (Aspirin Children's)81 Mg Chew81 Mg CHEW DAILY Ref 0 10/11/16 Budesonide-Formoterol Inh (Symbicort Inh)160-4.5 Mcg/Act Aero1 Puff INH Q12HR # 1 INHALER Ref 0 06/16/16 Albuterol Neb 2.5 Mg/3 Ml Neb2.5 Mg NEB QID NEB #60 NEBULE Ref 0 06/16/16 Alprazolam 0.25 Mg Tab0.25 Mg PO Q12HR PRN (ANXIETY) Ref 0 06/16/16 Citalopram 20 Mg Tab40 Mg PO DAILY #30 TAB Ref 0 05/03/16 Ezetimibe (Zetia)10 Mg Tab10 Mg PO DAILY #30 TAB Ref 0 05/01/16 Levothyroxine 112 Mcg Gpf194 Mcg PO DAILY #30 TAB Ref 0 05/01/16 Felodipine ER 10 mg Taber10 Mg PO DAILY #30 TAB Ref 0 05/01/16 Discontinued Scripts Insulin Glargine Inj (Lantus Solostar Pen Inj)300 Unit/3 Ml Pen40 Units SQ BID #30 PEN Ref 0 increase by 2 units every day if fasting blood sugar is above 150 until you return to your home dose. You will need to see your primary care doctor for adjustments, Prov:Noris Marquez MD 11/07/16 Metoprolol Tartrate 25 Mg Tab25 Mg PO BID #60 TAB Prov:AlysaChelsievolodymyr JORDAN 05/17/16 Current Medications Medications (Trade) Dose Ordered Sig/Amador Route Start Time Stop Time Status Last Admin (NS Flush) 2 ml UNSCH PRN IV FLUSH 12/10/16 01:45 12/12/16 04:51 (NS Flush) 2 ml BID IV FLUSH 12/10/16 09:00 12/15/16 10:41 (Zofran Inj) 4 mg Q6H PRN IVP 12/10/16 01:45 12/14/16 20:42 (Tylenol) 650 mg Q6H PRN PO 12/10/16 01:45 ([place] 5-325 Mg) 1 tab Q4H PRN PO 12/10/16 01:45 12/14/16 20:42 (Dilaudid Pf Inj) 0.5 mg Q3H PRN IV 12/10/16 01:45 12/15/16 10:42 (Rani-Colace) 1 tab BID PO 12/10/16 09:00 12/14/16 10:02 (Milk Of Magnesia Liq) 30 ml Q12H PRN PO 12/10/16 01:45 12/11/16 16:29 (Senokot) 17.2 mg Q12H PRN PO 12/10/16 01:45 (Dulcolax Supp) 10 mg DAILY PRN RECTAL 12/10/16 01:45 (Lactulose Liq) 30 ml DAILY PRN PO 12/10/16 01:45 (Xanax) 0.25 mg Q12HR PRN PO 12/10/16 01:45 12/15/16 10:34 (Aspirin Chew) 81 mg DAILY CHEW 12/10/16 09:00 12/15/16 10:32 (Symbicort 160-4.5 Inh) 1 puff Q12HR INH 12/10/16 09:00 12/15/16 10:40 (CeleXA) 40 mg DAILY PO 12/10/16 09:00 12/15/16 10:34 (Colace) 100 mg BID PO 12/10/16 09:00 12/14/16 10:02 (Zetia) 10 mg DAILY PO 12/10/16 09:00 12/15/16 10:33 (Plaquenil) 200 mg DAILY PO 12/10/16 09:00 12/15/16 10:31 (Deltasone) 20 mg DAILY PO 12/10/16 09:00 12/15/16 10:32 (D50w (Vial) Inj) 25 ml UNSCH PRN IV PUSH 12/10/16 08:45 (Glucagon Inj) 1 mg UNSCH PRN OTHER 12/10/16 08:45 Patient Own Medication PT OWN MED: FELODIP... DAILY PO 12/11/16 09:00 Hold (Apresoline) 100 mg TID PO 12/10/16 18:00 12/15/16 12:54 (Catapres) 0.1 mg Q6H PRN PO 12/10/16 16:00 12/14/16 20:48 (Synthroid) 125 mcg DAILY@06 PO 12/11/16 06:00 12/15/16 06:21 (Ambien) 10 mg HS PO 12/11/16 21:00 12/14/16 20:42 (Vasotec Inj) 1.25 mg Q6H PRN IV PUSH 12/12/16 02:00 12/12/16 02:12 (Apresoline) 10 mg Q6HR PRN PO 12/12/16 02:00 12/14/16 00:22 (Protonix) 40 mg DAILY PO 12/13/16 12:00 12/15/16 10:33 (Norvasc) 10 mg DAILY PO 12/14/16 09:00 12/15/16 10:33 (Prinivil) 20 mg DAILY PO 12/16/16 09:00 Family History Positive for anxiety disorders Social History with a supportive . Planning to go to [place]. No alcohol or drug history. Patient retired. Patient's Strengths (min. 2) Verbal with supportive . Physical Exam Vital Signs Vital Signs Date Time Temp Pulse Resp B/P Pulse Ox O2 Delivery O2 Flow Rate FiO2 12/15/16 12:28 98.3 76 20 199/79 95 12/13/16 08:25 21 I/O 12/14/16 12/14/16 12/15/16 08:00 16:00 00:00 Intake Total 700 ml 100 ml 850 ml Balance 700 ml 100 ml 850 ml Mental Status Examination Speech: Unremarkable Orientation: x3 Memory: Unremarkable Thought Process: Organized, Goal Directed Thought Content: Unremarkable Hallucination Type: None Attention and Concentration: Good Suicidal Ideation: No Previous Suicide Attempts: No Homicidal Ideation: No Previous Homicide Attempts: No Insight: Fair Judgment: WNL Affect: Good Mood: Appropriate Motor Activity: Normal gait Assessment & Plan Problem List: (1) Adjustment disorder with anxiety ICD Code: F43.22 Assessment & Plan Estimated LOS: days increased frequency of Xanax to every 6 hours when necessary anxiety. Santos Pierre MD Dec 15, 2016 13:37
--- NOTE | 2016-12-15 14:51 | HHI.DCPOC ---
Discharge Care Plan Diagnosis: (1) Adjustment disorder with anxiety (2) DM (diabetes mellitus) (3) COPD (chronic obstructive pulmonary disease) (4) Uncontrolled hypertension (5) Fever of unknown origin (FUO) (6) Abdominal pain Goals to Promote Your Health * To prevent worsening of your condition and complications * To maintain your health at the optimal level Directions to Meet Your Goals Take your medications as prescribed Follow your dietary instruction Follow activity as directed Keep your appointments as scheduled Take your immunizations and boosters as scheduled If your symptoms worsen call your PCP, if no PCP go to Urgent Care Center or Emergency Room Smoking is Dangerous to Your Health. Avoid second hand smoke Call the 24-hour hour crisis hotline for domestic abuse at Stephen Hodge DO Dec 15, 2016 14:51
--- NOTE | 2016-12-15 14:58 | HHI.PR ---
Subjective Remarks The patient was feeling much better today. Her family was at the bedside. She said she had no more abdominal pain. She was able to eat something today. She was requesting prednisone upon discharge. Discussed with nursing. Objective Vitals Vital Signs Date Time Temp Pulse Resp B/P Pulse Ox O2 Delivery O2 Flow Rate FiO2 12/15/16 12:28 98.3 76 20 199/79 95 12/15/16 08:12 98.1 72 18 186/83 93 12/15/16 04:30 98.8 80 23 150/64 97 12/15/16 00:15 97.9 88 19 165/76 97 12/14/16 22:47 18 12/14/16 22:05 18 12/14/16 20:45 98.9 76 18 180/75 96 12/14/16 20:00 90 12/14/16 16:00 97.7 82 21 138/61 96 I/O 12/14/16 12/14/16 12/14/16 12/15/16 12/15/16 12/15/16 07:00 15:00 23:00 07:00 15:00 23:00 Intake Total 700 ml 100 ml 850 ml 500 ml Balance 700 ml 100 ml 850 ml 500 ml Intake Oral 700 ml 850 ml 500 ml Other 100 ml # Voids 3 6 1 3 # Bowel Movements 0 1 0 0 Result Diagram: 12/15/16 0239 12/15/16 0239 Imaging Last Impressions Abdomen/Pelvis CT 12/12/16 0000 Signed Impressions: Service Date/Time: Monday, December 12, 2016 17:02 - CONCLUSION: 1. Enlarged fatty liver. 2. Moderate sized hiatal hernia. 3. Ventral abdominal wall hernias which contain loops of small bowel but are unchanged compared to the previous examination and result in no small bowel obstruction. 4. Degenerative changes and scoliosis of the lumbar spine. 5. Stable right adnexal cystic lesion measuring 3.8 x 2.5 cm. 6. Minimal streakiness within the left lung base consistent with atelectasis and/or infiltrate. 7. Tiny bilateral pleural effusions are noted. Piter Sauceda MD Abdomen X-Ray 12/11/16 0000 Signed Impressions: Service Date/Time: Sunday, December 11, 2016 17:04 - CONCLUSION: No dilated loops of small or large bowel. John Chisholm MD Chest X-Ray 12/09/16 3340 Signed Impressions: Service Date/Time: Saturday, December 10, 2016 00:09 - CONCLUSION: No acute disease. Stephen Kincaid MD Objective Remarks GENERAL: This is a well-nourished, well-developed patient, in NAD. HEENT: NC, AT. CARDIOVASCULAR: Regular rate and rhythm without murmurs, gallops, or rubs. RESPIRATORY: Clear to auscultation. Breath sounds equal bilaterally. No wheezes , rales, or rhonchi. GASTROINTESTINAL: Abdomen soft, nontender, nondistended. Normal active bowel sounds. MUSCULOSKELETAL: Extremities without clubbing, cyanosis, or edema. NEURO: Alert & Oriented x4 to person, place, time, situation. Moves all ext x4. PSYCH: Mood and affect appropriate. Procedures EGD 12/14 Medications and IVs Current Medications Medications (Trade) Dose Ordered Sig/[place]ador Route Start Time Stop Time Status Last Admin (NS Flush) 2 ml UNSCH PRN IV FLUSH 12/10/16 01:45 12/12/16 04:51 (NS Flush) 2 ml BID IV FLUSH 12/10/16 09:00 12/15/16 10:41 (Zofran Inj) 4 mg Q6H PRN IVP 12/10/16 01:45 12/14/16 20:42 (Tylenol) 650 mg Q6H PRN PO 12/10/16 01:45 ([place] 5-325 Mg) 1 tab Q4H PRN PO 12/10/16 01:45 12/14/16 20:42 (Dilaudid Pf Inj) 0.5 mg Q3H PRN IV 12/10/16 01:45 12/15/16 10:42 (Rani-Colace) 1 tab BID PO 12/10/16 09:00 12/14/16 10:02 (Milk Of Magnesia Liq) 30 ml Q12H PRN PO 12/10/16 01:45 12/11/16 16:29 (Senokot) 17.2 mg Q12H PRN PO 12/10/16 01:45 (Dulcolax Supp) 10 mg DAILY PRN RECTAL 12/10/16 01:45 (Lactulose Liq) 30 ml DAILY PRN PO 12/10/16 01:45 (Aspirin Chew) 81 mg DAILY CHEW 12/10/16 09:00 12/15/16 10:32 (Symbicort 160-4.5 Inh) 1 puff Q12HR INH 12/10/16 09:00 12/15/16 10:40 (CeleXA) 40 mg DAILY PO 12/10/16 09:00 12/15/16 10:34 (Colace) 100 mg BID PO 12/10/16 09:00 12/14/16 10:02 (Zetia) 10 mg DAILY PO 12/10/16 09:00 12/15/16 10:33 (Plaquenil) 200 mg DAILY PO 12/10/16 09:00 12/15/16 10:31 (D50w (Vial) Inj) 25 ml UNSCH PRN IV PUSH 12/10/16 08:45 (Glucagon Inj) 1 mg UNSCH PRN OTHER 12/10/16 08:45 Patient Own Medication PT OWN MED: FELODIP... DAILY PO 12/11/16 09:00 Hold (Apresoline) 100 mg TID PO 12/10/16 18:00 12/15/16 12:54 (Catapres) 0.1 mg Q6H PRN PO 12/10/16 16:00 12/14/16 20:48 (Synthroid) 125 mcg DAILY@06 PO 12/11/16 06:00 12/15/16 06:21 (Ambien) 10 mg HS PO 12/11/16 21:00 12/14/16 20:42 (Vasotec Inj) 1.25 mg Q6H PRN IV PUSH 12/12/16 02:00 12/12/16 02:12 (Apresoline) 10 mg Q6HR PRN PO 12/12/16 02:00 12/14/16 00:22 (Protonix) 40 mg DAILY PO 12/13/16 12:00 12/15/16 10:33 (Norvasc) 10 mg DAILY PO 12/14/16 09:00 12/15/16 10:33 (Prinivil) 20 mg DAILY PO 12/16/16 09:00 (Xanax) 0.25 mg Q6HR PRN PO 12/15/16 18:00 (Deltasone) 10 mg DAILY PO 12/16/16 09:00 UNV A/P Problem List: (1) Sepsis ICD Code: A41.9 Status: Resolved (2) MARIO ALBERTO (acute kidney injury) ICD Code: N17.9 Status: Acute (3) Hypokalemia ICD Code: E87.6 Status: Resolved (4) COPD (chronic obstructive pulmonary disease) ICD Code: J44.9 Status: Acute (5) DM (diabetes mellitus) ICD Code: E11.9 Status: Acute Assessment and Plan Sepsis Temp 101.7 rectal, WBC 16, Lactic Acid 4.4, repeat level normal. Recent admit for similar, FUO. ID consult appreciated. - follow blood cultures. Negative. - D/c IV Vanc/ Flagyl/ Azactam per ID. Severe abdominal pain Has been following with Dr. Rockwell. CT with hernias, no other acute abnormality. Pain is worse with eating so the pt has not been eating much. GI consult appreciated. EGD with esophagitis and gastritis. Resolved 12/15. - pain control with a bowel regimen. - PPI. - biopsies pending. Follow up with GI as an outpt. Generalized weakness The pt has had multiple episodes of paralysis of the upper and lower extremities which resolves after several days. Neurology consult appreciated. EEG normal. - PT. Hypokalemia Likely s/t decreased PO intake. - replete and follow BMP. - d/c on supplementation. COPD Chronic respiratory failure, recent admit w/ eval by Dr. Hoskins. Noted to have COPD/Interstitial lung disease. D/c'd on Prednisone taper x3 wks. Breathing well controlled. - will resume prednisone taper. - DuoNeb/MDI, oxygen as needed. DM Glucose has been elevated. - Sliding scale w/ Accu-Cheks. - taper prednisone. Accelerated HTN Blood pressure remains elevated. - increase amlodipine to 10 mg daily. - start lisinopril 20 mg daily. Anxiety/ Depression The pt has depression and is prone to panic attacks. Question if contributing to symptomatology. - psychiatry consult appreciated. Increase Xanax to QID prn. DVT Prophylaxis: SCD/[place]. Discharge Planning D/c home later today if blood pressure improves Stephen Hodge DO Dec 15, 2016 14:57
[2016-12-15] MEDS ORDERED: PANT40TA3 PO (15:04)
[2016-12-15] MEDS ORDERED: ALPR.25 PO (15:04)
[2016-12-15] MEDS ORDERED: PRED10 PO (15:04)
[2016-12-15] MEDS ORDERED: HYDR-3516 PO (15:04)
[2016-12-15] MEDS ORDERED: PRED5TAB PO (15:04)
[2016-12-15] MEDS ORDERED: LISI10TA3 PO (15:04)
[2016-12-15] MEDS: cloNIDine HCL 0.1 MG TAB PO PRN (15:57)
--- NOTE | 2016-12-15 16:38 | HHI.DS ---
Discharge Summary Admission Date Dec 10, 2016 at 01:25 Discharge Date: Dec 15, 2016 Admitting Diagnosis sepsis (1) Sepsis ICD Code: A41.9 (2) MARIO ALBERTO (acute kidney injury) ICD Code: N17.9 (3) Hypokalemia ICD Code: E87.6 (4) COPD (chronic obstructive pulmonary disease) ICD Code: J44.9 (5) DM (diabetes mellitus) ICD Code: E11.9 (6) Anxiety ICD Code: F41.9 Diagnosis: Principal (7) Abdominal pain ICD Code: R10.9 Diagnosis: Principal (8) Uncontrolled hypertension ICD Code: I10 Diagnosis: Principal Procedures EGD 12/14 Brief History - From Admission This is a 75-year-old female with a PMH of HTN, Arthritis, Anxiety, Depression, Hyperlipidemia, COPD and DM who presented to the ER with complaints of generalized weakness, myalgias and subjective fever/chills starting earlier tonight, states she was having difficulty getting off the couch due to generalized pain. Recent admit 10/27-11/07/16 for FUO, and Interstitial Lung Disease, s/p eval by ID as FUO persistent for several months, s/p IV Abx, LP negative, febrile episodes thought to be secondary to Rheumatoid Arthritis rather than infection. Also eval by Pulmonology, diagnosed w/ Asthmatic Bronchitis/COPD and Interstitial Lung Disease, d/c'd on steroid taper x3 wks. Returns now w/ ongoing complaints. On arrival, BP 173/72, HR 93, O2 sat 96% on RA, Temp 101.7 rectal. WBC 16.5. Creatinine 1.10, previously 0.75 on 11/02/16. Lactic Acid 4.4, repeat 2.8. Troponin negative. INR 0.9. UA negative. CXR with no acute findings. S/p Blood Cultures, Vanc/Flagyl/Azactam in ER. CBC/BMP: 12/15/16 0239 12/15/16 0239 Significant Findings Laboratory Tests Test 12/13/16 12/13/16 12/13/16 12/14/16 06:41 14:40 17:37 11:57 Red Blood Count 3.90 MIL/MM3 (4.00-5.30) Hemoglobin 10.0 GM/DL 10.5 GM/DL (11.6-15.3) (11.6-15.3) Hematocrit 31.5 % 33.3 % (35.0-46.0) (35.0-46.0) Mean Corpuscular Hemoglobin 25.6 PG 25.3 PG (27.0-34.0) (27.0-34.0) Mean Corpuscular Hemoglobin 31.7 % 31.4 % Concent (32.0-36.0) (32.0-36.0) Red Cell Distribution Width 17.3 % 17.4 % (11.6-17.2) (11.6-17.2) Platelet Count 457 TH/MM3 499 TH/MM3 (150-450) (150-450) Monocytes (%) (Auto) 13.2 % (0.0-8.0) Monocytes # (Auto) 1.3 TH/MM3 (0-0.9) Metamyelocytes 4 % (0-1) Nucleated Red Blood Cells 1 /100 WBC (0-0) Platelet Estimate HIGH (NORMAL) Sodium Level 135 MEQ/L (136-145) Potassium Level 2.9 MEQ/L 3.2 MEQ/L (3.5-5.1) (3.5-5.1) Random Glucose 160 MG/DL 213 MG/DL 208 MG/DL (74-106) (74-106) (74-106) Calcium Level 8.0 MG/DL 8.4 MG/DL 8.2 MG/DL (8.5-10.1) (8.5-10.1) (8.5-10.1) Urine Glucose (UA) 300 mg/dL (NEG) Urine Ketones 10 mg/dL (NEG) Urine Mucus FEW /lpf (OCC) Lipase 48 U/L (73-393) White Blood Count 12.7 TH/MM3 (4.0-11.0) Blood Urea Nitrogen 6 MG/DL (7-18) Amylase Level 15 U/L (25-115) Test 12/15/16 02:39 White Blood Count 11.3 TH/MM3 (4.0-11.0) Red Blood Count 3.82 MIL/MM3 (4.00-5.30) Hemoglobin 9.6 GM/DL (11.6-15.3) Hematocrit 31.0 % (35.0-46.0) Mean Corpuscular Hemoglobin 25.1 PG (27.0-34.0) Mean Corpuscular Hemoglobin 30.9 % Concent (32.0-36.0) Red Cell Distribution Width 17.9 % (11.6-17.2) Platelet Count 478 TH/MM3 (150-450) Monocytes (%) (Auto) 15.0 % (0.0-8.0) Monocytes # (Auto) 1.7 TH/MM3 (0-0.9) Toxic Granulation 1+ (NORMAL) Platelet Estimate HIGH (NORMAL) Estimat Glomerular Filtration 70 ML/MIN (>89) Rate Random Glucose 156 MG/DL (74-106) Calcium Level 8.4 MG/DL (8.5-10.1) Imaging Last Impressions Abdomen/Pelvis CT 12/12/16 0000 Signed Impressions: Service Date/Time: Monday, December 12, 2016 17:02 - CONCLUSION: 1. Enlarged fatty liver. 2. Moderate sized hiatal hernia. 3. Ventral abdominal wall hernias which contain loops of small bowel but are unchanged compared to the previous examination and result in no small bowel obstruction. 4. Degenerative changes and scoliosis of the lumbar spine. 5. Stable right adnexal cystic lesion measuring 3.8 x 2.5 cm. 6. Minimal streakiness within the left lung base consistent with atelectasis and/or infiltrate. 7. Tiny bilateral pleural effusions are noted. Piter Sauceda MD Abdomen X-Ray 12/11/16 0000 Signed Impressions: Service Date/Time: Sunday, December 11, 2016 17:04 - CONCLUSION: No dilated loops of small or large bowel. John Chisholm MD Chest X-Ray 12/09/16 2336 Signed Impressions: Service Date/Time: Saturday, December 10, 2016 00:09 - CONCLUSION: No acute disease. Stephen Kincaid MD PE at Discharge GENERAL: This is a well-nourished, well-developed patient, in NAD. HEENT: NC, AT. CARDIOVASCULAR: Regular rate and rhythm without murmurs, gallops, or rubs. RESPIRATORY: Clear to auscultation. Breath sounds equal bilaterally. No wheezes , rales, or rhonchi. GASTROINTESTINAL: Abdomen soft, nontender, nondistended. Normal active bowel sounds. MUSCULOSKELETAL: Extremities without clubbing, cyanosis, or edema. NEURO: Alert & Oriented x4 to person, place, time, situation. Moves all ext x4. PSYCH: Mood and affect appropriate. Hospital Course Sepsis Temp 101.7 rectal, WBC 16, Lactic Acid 4.4 on admission. Recent admit for FUO. ID was consulted. Blood cultures were negative. We d/c IV Vanc/ Flagyl/ Azactam per ID as the pt remained afebrile. Severe abdominal pain Has been following with Dr. Rockwell. CT with hernias, no other acute abnormality. Pain is worse with eating so the pt has not been eating much. GI was consulted. EGD with esophagitis and gastritis. She was started on a PPI. Her symptoms improved and she was tolerating a diet. She received pain control with a bowel regimen. Biopsies from the EGD are pending. She will follow up with GI as an outpt. Generalized weakness The pt has had multiple episodes of paralysis of the upper and lower extremities which resolves after several days. Neurology was consulted. EEG was normal. She worked with PT. Her symptoms resolved. She will follow up with neurology upon discharge. Hypokalemia Potassium was repleted and her BMP was followed. We will d/c her on KCl supplementation. COPD Recently d/c'd on Prednisone taper x3 wks. Breathing well controlled. Will resume prednisone taper. She received DuoNeb/MDI, oxygen as needed. She will continue her home regimen upon discharge. DM She was placed on sliding scale w/ Accu-Cheks. She will taper the prednisone. Accelerated HTN Blood pressure was quite elevated. We placed her on amlodipine 10 mg daily and started lisinopril 20 mg daily. She will follow up with her PCP. Anxiety/ Depression The pt has depression and is prone to panic attacks. Psychiatry was consulted. We increased Xanax to QID prn. Pt Condition on Discharge: Stable Discharge Disposition: Discharge Home Discharge Time: > 30 minutes Discharge Instructions Follow up Referrals: Gastroenterology - 2 Weeks with Ezra Cesar MD Neurology - 2 Weeks with Tc Ann MD PCP Follow-up - 1 Week Psychiatry Adult - 2 Weeks New Medications: Potassium Chloride ER (Potassium Chloride ER) 20 Meq Tab 20 MEQ PO DAILY Electrolyte Replacement #7 Ref 0 TAB Potassium Chloride ER (Potassium Chloride ER) 20 Meq Tab 20 MEQ PO DAILY Electrolyte Replacement #7 Ref 0 TAB Prednisone (Prednisone) 5 Mg Tab 5 MG PO DAILY Start 5 mg daily after completing course of 10 mg daily COPD #5 Ref 0 TAB Alprazolam (Xanax) 0.25 Mg Tab 0.25 MG PO Q6HR PRN ANXIETY #20 TAB Lisinopril (Lisinopril) 10 Mg Tab 20 MG PO DAILY Blood Pressure Management #60 TAB Pantoprazole (Pantoprazole) 40 Mg Tab 40 MG PO DAILY Stomach #30 TAB Prednisone (Prednisone) 10 Mg Tab 10 MG PO DAILY COPD #3 TAB Continued Medications: Albuterol 8.5 GM Inh (Proair Hfa 8.5 GM Inh) 90 Mcg/Act Aer 1 PUFF INH Q4H 108 mcg/actuation PRN SHORTNESS OF BREATH #1 Ref 0 INHALER Albuterol Neb (Albuterol Neb) 2.5 Mg/3 Ml Neb 2.5 MG NEB QID NEB Breathing Treatment #60 Ref 0 NEBULE Aspirin (Aspirin Children's) 81 Mg Chew 81 MG CHEW DAILY Ref 0 TAB Budesonide-Formoterol Inh (Symbicort Inh) 160-4.5 Mcg/Act Aero 1 PUFF INH Q12HR #1 Ref 0 INHALER Citalopram (Citalopram) 20 Mg Tab 40 MG PO DAILY Control Depression #30 Ref 0 TAB Docusate Sodium (Dok) 100 Mg Cap 100 MG PO BID constipation #60 CAP Ezetimibe (Zetia) 10 Mg Tab 10 MG PO DAILY #30 Ref 0 TAB Felodipine ER (Felodipine ER) 10 mg Tree 10 MG PO DAILY Blood Pressure Management #30 Ref 0 TAB Hydrocodone-Acetaminophen (Hydrocodone-Acetaminophen) 5-325 mg Tab 1 TAB PO Q6H PRN PAIN #20 Ref 0 TAB (This prescription has been renewed) Hydroxychloroquine (Hydroxychloroquine) 200 Mg Tab 200 MG PO DAILY Takw with food #30 Ref 0 TAB Insulin Glargine Inj (Lantus Solostar Pen Inj) 300 Unit/3 Ml Pen 55 UNITS SQ BID Blood Sugar Management Ref 0 PEN Levothyroxine (Levothyroxine) 112 Mcg Tab 125 MCG PO DAILY #30 Ref 0 TAB Zolpidem (Zolpidem) 10 Mg Tab 10 MG PO HS PRN INSOMNIA Ref 0 TAB ([Astelin Nasal]) ([hydrALAZINE]) 100 MG TAB 100 MG PO TID hypertension #90 Ref 0 TAB Discontinued Medications: Alprazolam (Alprazolam) 0.25 Mg Tab 0.25 MG PO Q12HR PRN ANXIETY Ref 0 TAB Prednisone (Prednisone) 20 Mg Tab 30 MG PO DIRECTED take 1.5 tab (30 mg) for 6 days then 1 tab (20 mg) for 6 days then 0.5 tab (10 mg) for 6 days then take 5mg tab for 4 days interstitual lung disease #18 Ref 0 TAB Prednisone (Prednisone) 5 Mg Tab 5 MG PO DAILY start after completing the 20 mg tablets. interstitual lung disease #4 Ref 0 TAB Stephen Hodge DO Dec 15, 2016 16:38
--- NOTE | 2016-12-15 16:43 | HHI.GIFU ---
Subjective Remarks Up in chair. No n/v. States mild "grumbling" after eating lunch, but no pain. No n/v. Hoping to go home if b/p controlled, still high (Janette Mcbride) Objective Vitals I&O Vital Signs Date Time Temp Pulse Resp B/P Pulse Ox O2 Delivery O2 Flow Rate FiO2 12/15/16 15:03 68 12/15/16 12:28 98.3 76 20 199/79 95 12/15/16 08:12 98.1 72 18 186/83 93 12/15/16 04:30 98.8 80 23 150/64 97 12/15/16 00:15 97.9 88 19 165/76 97 12/14/16 22:47 18 12/14/16 22:05 18 12/14/16 20:45 98.9 76 18 180/75 96 12/14/16 20:00 90 I/O 12/14/16 12/14/16 12/14/16 12/15/16 12/15/16 12/15/16 07:00 15:00 23:00 07:00 15:00 23:00 Intake Total 700 ml 100 ml 850 ml 500 ml Balance 700 ml 100 ml 850 ml 500 ml Intake Oral 700 ml 850 ml 500 ml Other 100 ml # Voids 3 6 1 3 # Bowel Movements 0 1 0 0 Laboratory Laboratory Tests Test 12/15/16 02:39 White Blood Count 11.3 Red Blood Count 3.82 Hemoglobin 9.6 Hematocrit 31.0 Mean Corpuscular Volume 81.1 Mean Corpuscular Hemoglobin 25.1 Mean Corpuscular Hemoglobin 30.9 Concent Red Cell Distribution Width 17.9 Platelet Count 478 Mean Platelet Volume 7.3 Neutrophils (%) (Auto) 64.9 Lymphocytes (%) (Auto) 19.0 Monocytes (%) (Auto) 15.0 Eosinophils (%) (Auto) 0.6 Basophils (%) (Auto) 0.5 Neutrophils # (Auto) 7.3 Lymphocytes # (Auto) 2.1 Monocytes # (Auto) 1.7 Eosinophils # (Auto) 0.1 Basophils # (Auto) 0.1 CBC Comment AUTO DIFF Differential Comment AUTO DIFF CONFIRMED Toxic Granulation 1+ Platelet Estimate HIGH Platelet Morphology Comment NORMAL Sodium Level 140 Potassium Level 3.5 Chloride Level 104 Carbon Dioxide Level 28.0 Anion Gap 8 Blood Urea Nitrogen 13 Creatinine 0.80 Estimat Glomerular Filtration 70 Rate Random Glucose 156 Calcium Level 8.4 Magnesium Level 2.0 Imaging Last Impressions Abdomen/Pelvis CT 12/12/16 0000 Signed Impressions: Service Date/Time: Monday, December 12, 2016 17:02 - CONCLUSION: 1. Enlarged fatty liver. 2. Moderate sized hiatal hernia. 3. Ventral abdominal wall hernias which contain loops of small bowel but are unchanged compared to the previous examination and result in no small bowel obstruction. 4. Degenerative changes and scoliosis of the lumbar spine. 5. Stable right adnexal cystic lesion measuring 3.8 x 2.5 cm. 6. Minimal streakiness within the left lung base consistent with atelectasis and/or infiltrate. 7. Tiny bilateral pleural effusions are noted. Piter Sauceda MD Abdomen X-Ray 12/11/16 0000 Signed Impressions: Service Date/Time: Sunday, December 11, 2016 17:04 - CONCLUSION: No dilated loops of small or large bowel. John Chisholm MD Chest X-Ray 12/09/16 2336 Signed Impressions: Service Date/Time: Saturday, December 10, 2016 00:09 - CONCLUSION: No acute disease. Stephen Kincaid MD Physical Exam HEENT: Normocephalic; atraumatic; no jaundice. CHEST: CTA CARDIAC: RRR ABDOMEN: Soft, nondistended, nontender; no hepatosplenomegaly; bowel sounds are present in all four quadrants. EXTREMITIES: No clubbing, cyanosis, or edema. SKIN: Normal; no rash; no jaundice. [employer] REPA[employer]ER: No focal deficits; alert and oriented times three. (Janette Mcbride [facility]) Assessment and Plan Plan ASSESSMENT: - Abdominal pain. Pt with chronic abdominal pain, has had nausea. Hx multiple bowel surgeries with Dr. Rockwell for obstruction. Pt Colonoscopy in last year, cannot recall findings. S/P EGD (12/14/16)---> [place] Class A Esophagitis, erythematous gastritis gastric antrum, normal duodenum, retroflexed hiatal hernia. Pathology pending. Doing much better. Tolerating diet. PPI - Uncontrolled HTN>. Per primary - Sepsis, Leukocytosis. S/P ID evaluation, off on abx. - COPD, DM, MARIO ALBERTO per primary PLAN - Okay to d/c home from GI standpoint when medically stable - SAY - Await pathology - PPI - FU CATIA 2 weeks - Further recommendations to follow - Pt seen and examined by Dr. Cesar and myself and this note is written on his behalf (Janette Mcbride) Physician Comments Seen and examined with MIKE, doingn better. GI fu upon dc please. Thank you ( Ezra Cesar MD) Janette Mcbride Dec 15, 2016 16:43 Ezra Cesar MD Dec 15, 2016 18:17
[2016-12-15] MEDS ORDERED: POTA-163 PO (16:50)
--- NOTE | 2016-12-15 17:26 | HHI.IDPN ---
Note Infectious Disease Note Patient said she was feeling well after several walks today. Suddenly started having pain in the legs and abdomen. No nausea or diarrhea. Afebrile. EEG was unremarkable. All cultures are negative. Says she feels depressed and sometimes her thoughts are racing. Presented to the emergency department with fever and diffuse body aches and pains. The patient stated that she was doing well up until the evening before presenting to the emergency department where after she ate dinner, she developed severe pains and aches and had difficulty moving her legs and she had neck pain and neck stiffness and temperature stephan to 103 degrees. She notes that the difficulty in her legs was such that she was having difficulty getting off the couch and the pain became very severe. This is one of multiple admissions for this patient. She was recently admitted to the hospital in October with similar symptoms. PAST MEDICAL HISTORY 1. Rheumatoid arthritis, 2. Fibromyalgia, 3. Hypertension, 4. Diabetes mellitus, 5. Hypothyroidism, 7. Hyperlipidemia, 8. Gastroesophageal reflux disease, 9. Psoriasis, 10. Asthma, 11. Bilateral knee replacement, 12. Hysterectomy, 13. Cardiac stent 14. Sigmoid resection 15. Ventral hernia repair. ALLERGIES PENICILLIN ERYTHROMYCIN MORPHINE METFORMIN SULFA IODINE SEAFOOD MOLD EGGS. MEDICATIONS None OBJECTIVE: Vital Signs Date Time Temp Pulse Resp B/P Pulse Ox O2 Delivery O2 Flow Rate FiO2 12/15/16 17:02 97.5 78 20 177/79 96 12/15/16 15:03 68 12/15/16 12:28 98.3 76 20 199/79 95 12/15/16 08:12 98.1 72 18 186/83 93 12/15/16 04:30 98.8 80 23 150/64 97 12/15/16 00:15 97.9 88 19 165/76 97 12/14/16 22:47 18 12/14/16 22:05 18 12/14/16 20:45 98.9 76 18 180/75 96 12/14/16 20:00 90 12/14/16 12/14/16 12/15/16 15:00 23:00 07:00 Intake Total 100 ml 850 ml 500 ml Balance 100 ml 850 ml 500 ml Intake Oral 850 ml 500 ml Other 100 ml # Voids 6 1 3 # Bowel Movements 1 0 0 Laboratory Tests Test 12/14/16 12/15/16 11:57 02:39 White Blood Count 12.7 TH/MM3 11.3 TH/MM3 Red Blood Count 4.13 MIL/MM3 3.82 MIL/MM3 Hemoglobin 10.5 GM/DL 9.6 GM/DL Hematocrit 33.3 % 31.0 % Mean Corpuscular Volume 80.6 FL 81.1 FL Mean Corpuscular Hemoglobin 25.3 PG 25.1 PG Mean Corpuscular Hemoglobin 31.4 % 30.9 % Concent Red Cell Distribution Width 17.4 % 17.9 % Platelet Count 499 TH/MM3 478 TH/MM3 Mean Platelet Volume 7.2 FL 7.3 FL Neutrophils (%) (Auto) 64.9 % Lymphocytes (%) (Auto) 19.0 % Monocytes (%) (Auto) 15.0 % Eosinophils (%) (Auto) 0.6 % Basophils (%) (Auto) 0.5 % Neutrophils # (Auto) 7.3 TH/MM3 Lymphocytes # (Auto) 2.1 TH/MM3 Monocytes # (Auto) 1.7 TH/MM3 Eosinophils # (Auto) 0.1 TH/MM3 Basophils # (Auto) 0.1 TH/MM3 CBC Comment AUTO DIFF Differential Comment AUTO DIFF CONFIRMED Toxic Granulation 1+ Platelet Estimate HIGH Platelet Morphology Comment NORMAL Laboratory Tests Test 12/13/16 12/14/16 12/15/16 17:37 11:57 02:39 Sodium Level 136 MEQ/L 138 MEQ/L 140 MEQ/L Potassium Level 3.6 MEQ/L 3.2 MEQ/L 3.5 MEQ/L Chloride Level 100 MEQ/L 101 MEQ/L 104 MEQ/L Carbon Dioxide Level 25.5 MEQ/L 27.0 MEQ/L 28.0 MEQ/L Anion Gap 11 MEQ/L 10 MEQ/L 8 MEQ/L Blood Urea Nitrogen 8 MG/DL 6 MG/DL 13 MG/DL Creatinine 0.59 MG/DL 0.60 MG/DL 0.80 MG/DL Estimat Glomerular Filtration 99 ML/MIN 97 ML/MIN 70 ML/MIN Rate Random Glucose 213 MG/DL 208 MG/DL 156 MG/DL Calcium Level 8.4 MG/DL 8.2 MG/DL 8.4 MG/DL Total Creatine Kinase 120 U/L Lipase 48 U/L Vitamin B12 Level 563 PG/ML Lactic Acid Level 1.4 mmol/L Magnesium Level 1.8 MG/DL 2.0 MG/DL Amylase Level 15 U/L IMAGING: Abdomen X-Ray 12/11/16 0000 Signed Impressions: Service Date/Time: Sunday, December 11, 2016 17:04 - CONCLUSION: No dilated loops of small or large bowel. John Chisholm MD Chest X-Ray 12/09/16 2336 Signed Impressions: Service Date/Time: Saturday, December 10, 2016 00:09 - CONCLUSION: No acute disease. Stephen Kincaid MD PHYSICAL EXAMINATION GENERAL: No acute distress. HEENT: No icterus. Oropharynx - no visible lesions. Moist mucosa. NECK: Supple. No adenopathy. LUNGS: Clear breath sounds. HEART: Regular S1 and S2 without murmurs, rubs or gallops. ABDOMEN: Bowel sounds present, soft, Non tender. EXTREMITIES: No clubbing, cyanosis or edema. SKIN: No rash. NEUROLOGIC: Awake and alert. Non focal. PSYCH: Depressed mood. IMPRESSION 1. Sepsis on admission indicated by fever, elevated white blood cell count, elevated lactic acid. No clear source of infection. Negative cultures. 2. Febrile illness ? etiology, recurrent, episodic. Recent treatment for pneumonia. Temp resolved and cultures are negative. 3. Possible autoimmune disease explanation for the patient's fever which is accompanied by weakness of the extremities and diffuse joint aches and pains. 4. Abdominal pain. ? etiology. RECOMMENDATIONS Okay to discharge without antibiotics. Stable. I will sign off now. Hunter Hawley MD Dec 15, 2016 17:26
[2016-12-15] MEDS ORDERED: ALPRAZolam 0.25 MG TAB PO PRN (18:00)
[2016-12-15] MEDS ORDERED: LISINOPRIL 20 MG TAB PO ONE (18:30)
[2016-12-15] MEDS: ZOLPIDEM TARTRATE 10 MG TAB PO SCH (20:52)
[2016-12-16 02:27] VITALS: PULSE 75
[2016-12-16] MEDS: cloNIDine HCL 0.1 MG TAB PO PRN (03:45)
[2016-12-16] MEDS: HYDROmorphone HCL PF 1 MG/ML VIAL IV PRN ×2 (03:46→13:24)
[2016-12-16 03:51] VITALS: BP 177/84; PULSE 79; RESP 18; TEMP 97.9; O2SAT 97
[2016-12-16] MEDS: LEVOTHYROXINE SODIUM 125 MCG TAB PO SCH (05:55)
[2016-12-16] MEDS: INSULIN NovoLIN REGULAR SUPPLEMENTAL SCALE SQ SCH ×2 (06:27→11:00)
[2016-12-16 08:00] VITALS: BP 179/75; PULSE 90; RESP 18; TEMP 97.5; O2SAT 97
[2016-12-16] MEDS: RESP: ALBUTEROL 2.5 MG/3 ML NEB (SCH) NEB ×2 (08:00→11:12)
[2016-12-16] MEDS: PANTOPRAZOLE SOD 40 MG DELAYED RELEASE TAB PO SCH (08:35)
[2016-12-16] MEDS: DOCUSATE SODIUM 100 MG CAP PO SCH (08:36)
[2016-12-16] MEDS: HYDROXYCHLOROQUINE SULFATE 200 MG TAB PO SCH (08:36)
[2016-12-16] MEDS: hydrALAZINE HCL 100 MG TAB PO SCH ×2 (08:37→11:54)
[2016-12-16] MEDS: ASPIRIN 81 MG CHEW TAB CHEW SCH (08:37)
[2016-12-16] MEDS: ACETAMINOPHEN/HYDROcodone 325 MG/5 MG TAB PO PRN (08:37)
[2016-12-16] MEDS: CITALOPRAM HYDROBROMIDE 20 MG TAB PO SCH (08:37)
[2016-12-16] MEDS: EZETIMIBE 10 MG TAB PO SCH (08:37)
[2016-12-16] MEDS: DOCUSATE SODIUM 50 MG/SENNA 8.6 MG TAB PO SCH (08:37)
[2016-12-16] MEDS: BUDESONIDE-FORMOTEROL 160/4.5 MCG INHALER INH SCH (08:38)
[2016-12-16] MEDS: SODIUM CHLORIDE 0.9% FLUSH 10 ML FLUSH IV FLUSH SCH (08:38)
[2016-12-16] MEDS ORDERED: LISINOPRIL 20 MG TAB PO SCH (09:00)
[2016-12-16] MEDS ORDERED: predniSONE 10 MG TAB PO SCH (09:00)
[2016-12-16] MEDS ORDERED: LISINOPRIL 10 MG TAB PO SCH (09:00)
[2016-12-16] MEDS ORDERED: POTA-163 PO (11:03)
--- NOTE | 2016-12-16 11:06 | HHI.PR ---
Subjective Remarks The patient was resting in bed. She denied any pain. She still wanted to go home. She said she was breathing comfortably. No acute complaints. Objective Vitals Vital Signs Date Time Temp Pulse Resp B/P Pulse Ox O2 Delivery O2 Flow Rate FiO2 12/16/16 08:00 97.5 90 18 179/75 97 12/16/16 04:16 18 12/16/16 03:51 97.9 79 18 177/84 97 12/16/16 02:27 75 12/15/16 23:57 97.9 82 18 141/80 97 12/15/16 19:52 97.8 73 20 150/64 96 12/15/16 18:30 201/88 12/15/16 17:30 214/98 12/15/16 17:02 97.5 78 20 177/79 96 12/15/16 15:03 68 12/15/16 12:28 98.3 76 20 199/79 95 I/O 12/15/16 12/15/16 12/15/16 12/16/16 12/16/16 12/16/16 07:00 15:00 23:00 07:00 15:00 23:00 Intake Total 500 ml 720 ml Balance 500 ml 720 ml Intake Oral 500 ml 720 ml # Voids 3 3 # Bowel Movements 0 1 Result Diagram: 12/15/16 0239 12/15/16 0239 Imaging Last Impressions Abdomen/Pelvis CT 12/12/16 0000 Signed Impressions: Service Date/Time: Monday, December 12, 2016 17:02 - CONCLUSION: 1. Enlarged fatty liver. 2. Moderate sized hiatal hernia. 3. Ventral abdominal wall hernias which contain loops of small bowel but are unchanged compared to the previous examination and result in no small bowel obstruction. 4. Degenerative changes and scoliosis of the lumbar spine. 5. Stable right adnexal cystic lesion measuring 3.8 x 2.5 cm. 6. Minimal streakiness within the left lung base consistent with atelectasis and/or infiltrate. 7. Tiny bilateral pleural effusions are noted. Piter Sauceda MD Abdomen X-Ray 12/11/16 0000 Signed Impressions: Service Date/Time: Sunday, December 11, 2016 17:04 - CONCLUSION: No dilated loops of small or large bowel. John Chisholm MD Chest X-Ray 12/09/16 0219 Signed Impressions: Service Date/Time: Saturday, December 10, 2016 00:09 - CONCLUSION: No acute disease. Stephen Kincaid MD Objective Remarks GENERAL: This is a well-nourished, well-developed patient, in NAD. HEENT: NC, AT. CARDIOVASCULAR: Regular rate and rhythm without murmurs, gallops, or rubs. RESPIRATORY: Clear to auscultation. Breath sounds equal bilaterally. No wheezes , rales, or rhonchi. GASTROINTESTINAL: Abdomen soft, nontender, nondistended. Normal active bowel sounds. MUSCULOSKELETAL: Extremities without clubbing, cyanosis, or edema. NEURO: Alert & Oriented x4 to person, place, time, situation. Moves all ext x4. PSYCH: Mood and affect appropriate. Procedures EGD 12/14 Medications and IVs Current Medications Medications (Trade) Dose Ordered Sig/Amador Route Start Time Stop Time Status Last Admin (NS Flush) 2 ml UNSCH PRN IV FLUSH 12/10/16 01:45 12/12/16 04:51 (NS Flush) 2 ml BID IV FLUSH 12/10/16 09:00 12/16/16 08:38 (Zofran Inj) 4 mg Q6H PRN IVP 12/10/16 01:45 12/14/16 20:42 (Tylenol) 650 mg Q6H PRN PO 12/10/16 01:45 ([place] 5-325 Mg) 1 tab Q4H PRN PO 12/10/16 01:45 12/16/16 08:37 (Dilaudid Pf Inj) 0.5 mg Q3H PRN IV 12/10/16 01:45 12/16/16 03:46 (Rani-Colace) 1 tab BID PO 12/10/16 09:00 12/16/16 08:37 (Milk Of Magnesia Liq) 30 ml Q12H PRN PO 12/10/16 01:45 12/11/16 16:29 (Senokot) 17.2 mg Q12H PRN PO 12/10/16 01:45 (Dulcolax Supp) 10 mg DAILY PRN RECTAL 12/10/16 01:45 (Lactulose Liq) 30 ml DAILY PRN PO 12/10/16 01:45 (Aspirin Chew) 81 mg DAILY CHEW 12/10/16 09:00 12/16/16 08:37 (Symbicort 160-4.5 Inh) 1 puff Q12HR INH 12/10/16 09:00 12/16/16 08:38 (CeleXA) 40 mg DAILY PO 12/10/16 09:00 12/16/16 08:37 (Colace) 100 mg BID PO 12/10/16 09:00 12/16/16 08:36 (Zetia) 10 mg DAILY PO 12/10/16 09:00 12/16/16 08:37 (Plaquenil) 200 mg DAILY PO 12/10/16 09:00 12/16/16 08:36 (D50w (Vial) Inj) 25 ml UNSCH PRN IV PUSH 12/10/16 08:45 (Glucagon Inj) 1 mg UNSCH PRN OTHER 12/10/16 08:45 Patient Own Medication PT OWN MED: FELODIP... DAILY PO 12/11/16 09:00 Hold (Apresoline) 100 mg TID PO 12/10/16 18:00 12/16/16 08:37 (Catapres) 0.1 mg Q6H PRN PO 12/10/16 16:00 12/16/16 03:45 (Synthroid) 125 mcg DAILY@06 PO 12/11/16 06:00 12/16/16 05:55 (Ambien) 10 mg HS PO 12/11/16 21:00 12/15/16 20:52 (Vasotec Inj) 1.25 mg Q6H PRN IV PUSH 12/12/16 02:00 12/12/16 02:12 (Apresoline) 10 mg Q6HR PRN PO 12/12/16 02:00 12/14/16 00:22 (Protonix) 40 mg DAILY PO 12/13/16 12:00 12/16/16 08:35 (Norvasc) 10 mg DAILY PO 12/14/16 09:00 12/16/16 08:36 (Xanax) 0.25 mg Q6HR PRN PO 12/15/16 18:00 12/15/16 23:56 (Deltasone) 10 mg DAILY PO 12/16/16 09:00 12/16/16 08:36 (Prinivil) 40 mg DAILY PO 12/16/16 09:00 12/16/16 08:38 A/P Problem List: (1) Sepsis ICD Code: A41.9 Status: Resolved (2) MARIO ALBERTO (acute kidney injury) ICD Code: N17.9 Status: Acute (3) Hypokalemia ICD Code: E87.6 Status: Resolved (4) COPD (chronic obstructive pulmonary disease) ICD Code: J44.9 Status: Acute (5) DM (diabetes mellitus) ICD Code: E11.9 Status: Acute (6) Anxiety ICD Code: F41.9 Status: Acute (7) Abdominal pain ICD Code: R10.9 Status: Resolved (8) Uncontrolled hypertension ICD Code: I10 Status: Acute Assessment and Plan Sepsis Temp 101.7 rectal, WBC 16, Lactic Acid 4.4, repeat level normal. Recent admit for similar, FUO. ID consult appreciated. She remains afebrile. - follow blood cultures. Negative. - D/c IV Vanc/ Flagyl/ Azactam per ID. Severe abdominal pain Has been following with Dr. Rockwell. CT with hernias, no other acute abnormality. Pain is worse with eating so the pt has not been eating much. GI consult appreciated. EGD with esophagitis and gastritis. Resolved 12/15. - pain control with a bowel regimen. - PPI. - biopsies pending. Follow up with GI as an outpt. Generalized weakness The pt has had multiple episodes of paralysis of the upper and lower extremities which resolves after several days. Neurology consult appreciated. EEG normal. - PT. Hypokalemia Likely s/t decreased PO intake. - replete and follow BMP. - d/c on supplementation. COPD Chronic respiratory failure, recent admit w/ eval by Dr. Hoskins. Noted to have COPD/Interstitial lung disease. D/c'd on Prednisone taper x3 wks. Breathing well controlled. - will resume prednisone taper. - DuoNeb/MDI, oxygen as needed. DM Glucose has been elevated. - Sliding scale w/ Accu-Cheks. - taper prednisone. Accelerated HTN Blood pressure remains elevated. - increase amlodipine to 10 mg daily. - increase lisinopril to 40 mg daily. - continue PO hydralazine. Anxiety/ Depression The pt has depression and is prone to panic attacks. Question if contributing to symptomatology. - psychiatry consult appreciated. Increase Xanax to QID prn. Mood has been stable. Anemia Hemoglobin is similar to baseline. - check iron studies, B12, folate levels. DVT Prophylaxis: SCD/[place]. Discharge Planning D/c home later today if blood pressure improves Stephen Hodge DO Dec 16, 2016 11:06
[2016-12-16 12:31] VITALS: BP 148/67; PULSE 68; RESP 18; TEMP 97.6; O2SAT 97
[2016-12-16 12:58] LABS: TRANSFERRIN IRON PROFILE 267 MG/DL (200-360)
[2016-12-16 13:23] LABS: FERRITIN 32 NG/ML (8-252)
== END 2016-12-16 14:52 | disposition home or self-care (01) | DRG 871 ==
LOC: NEPC 22:57 → NEDA 12-10 01:25 → N05B 12-10 03:30
PROVIDERS: ADMIT Hospitalist; ATTEND Hospitalist
PROC: 0DB68ZX Excision of Stomach, Via Natural or Artificial Opening Endoscopic, Diagnostic (ICD-10-PCS; 2016-12-14)
PROC: 0DB58ZX Excision of Esophagus, Via Natural or Artificial Opening Endoscopic, Diagnostic (ICD-10-PCS; principal; 2016-12-14 08:40)
DX: A41.9 Sepsis, unspecified organism (principal); R65.21 Severe sepsis with septic shock; N17.9 Acute kidney failure, unspecified; J84.9 Interstitial pulmonary disease, unspecified; E87.2 Acidosis; J96.10 Chronic respiratory failure, unspecified whether with hypoxia or hypercapnia; Z68.41 Body mass index [BMI] 40.0-44.9, adult; E11.40 Type 2 diabetes mellitus with diabetic neuropathy, unspecified; F32.9 Major depressive disorder, single episode, unspecified; M19.90 Unspecified osteoarthritis, unspecified site; J45.909 Unspecified asthma, uncomplicated; I10 Essential (primary) hypertension; E87.6 Hypokalemia; E03.9 Hypothyroidism, unspecified; Z96.653 Presence of artificial knee joint, bilateral; R11.2 Nausea with vomiting, unspecified; J44.9 Chronic obstructive pulmonary disease, unspecified; K21.0 Gastro-esophageal reflux disease with esophagitis; E78.5 Hyperlipidemia, unspecified; E66.9 Obesity, unspecified; M06.9 Rheumatoid arthritis, unspecified; K29.70 Gastritis, unspecified, without bleeding; F41.0 Panic disorder [episodic paroxysmal anxiety]; F43.22 Adjustment disorder with anxiety; Z95.5 Presence of coronary angioplasty implant and graft; Z79.82 Long term (current) use of aspirin; Z79.4 Long term (current) use of insulin; D64.9 Anemia, unspecified
CPT/HCPCS: 71010; 74000; 74176; 76937; 80048; 80053; 80202; 81001; 82150; 82550; 82552; 82607; 82728; 82746; 82948; 83540; 83550; 83605; 83690; 83735; 84100; 84484; 85007; 85025; 85027; 85610; 85652; 85730; 86038; 86140; 87040; 87804; 88305; 88312; 93005; 93306; 95819; 96361; 96365; 96375; J1170; J2250; J2405; J3370; J3480; J7030; J7040; J7050; J7512

== ENCOUNTER → 2017-04-04 | Outpatient (CLI) | payer MEDICARE, BC ==
[~2017-04-04] MED LIST changes: +ALPR.25 PO; -ALPR0.25 PO; +LISI10TA3 PO; -METO25TA3 PO; +PANT40TA3 PO; +POTA-163 PO; +PRED10 PO; -PRED20 PO; -QUIN40TA2 PO; +ZOLP10TA3 PO
[2017-04-04 13:40] LABS: ANION GAP 10 MEQ/L (5-15); AST (GOT) 30 U/L (15-37); BICARBONATE 25.2 MEQ/L (21.0-32.0); BLOOD UREA NITROGEN 14 MG/DL (7-18); CHLORIDE 101 MEQ/L (98-107); GLOMERULAR FILTRATION RATE 52 ML/MIN (>89); GLUCOSE,FASTING 204 MG/DL (74-99); POTASSIUM 3.7 MEQ/L (3.5-5.1); SODIUM (NA) 136 MEQ/L (136-145)
[2017-04-04 13:53] LABS: ALKALINE PHOSPHATASE 102 U/L (45-117); ALT (GPT) 38 U/L (10-53); HDL CHOLESTEROL 46.6 MG/DL (40.0-60.0); LDL CHOLESTEROL 85 MG/DL (0-99); TOTAL BILIRUBIN ADULT 0.2 MG/DL (0.2-1.0)
[2017-04-04 17:11] LABS: HEMOGLOBIN A1a 1.4 %; HEMOGLOBIN A1b 2.7 %; HEMOGLOBIN Ao 78.8 %; HEMOGLOBIN P3 4.8 %
== END ==
LOC: PLAB 11:00
PROVIDERS: ATTEND Family Medicine
DX: E11.40 Type 2 diabetes mellitus with diabetic neuropathy, unspecified (principal); E78.5 Hyperlipidemia, unspecified; I11.9 Hypertensive heart disease without heart failure; E03.9 Hypothyroidism, unspecified
CPT/HCPCS: 36415; 80053; 80061; 82043; 83036; 84443

== ENCOUNTER → 2017-05-24 | Outpatient (CLI) | payer MEDICARE, BC ==
[~2017-05-24] MED LIST changes: +EZET10 PO; -ZETI10TA5 PO
[2017-05-24 10:57] LABS: MEAN CELL VOLUME 80.4 FL (80.0-100.0); MEAN CORPUSCULAR HEMOGLOBIN 24.8 PG (27.0-34.0); MEAN CORPUSCULAR HGB CONC 30.8 % (32.0-36.0); PLATELET COUNT 489 TH/MM3 (150-450); RED BLOOD COUNT 4.84 MIL/MM3 (4.00-5.30); WHITE BLOOD COUNT 11.6 TH/MM3 (4.0-11.0)
[2017-05-24 10:58] LABS: APTT (PATIENT) 22.8 SEC (24.3-30.1); INTERNATIONAL NORMALIZED RATIO 0.9 RATIO; REVIEW FLAG FINAL
== END ==
LOC: PLAB 09:55
PROVIDERS: ATTEND Ophthalmology
DX: R68.89 Other general symptoms and signs (principal); R79.1 Abnormal coagulation profile
CPT/HCPCS: 36415; 85027; 85610; 85730

== ENCOUNTER 2017-10-03 10:01 | Inpatient (IN) | payer MEDICARE, BC ==
[~2017-10-03] VITALS: Ht 160 cm; Wt 105.5 kg
[2017-10-03] VITALS (11 sets, daily range): BP systolic 132–180; BP diastolic 58–79; PULSE 59–89; RESP 16–19; TEMP 97.8–98.5; O2SAT 96–98
[2017-10-03] MEDS ORDERED: SODIUM CHLOR 0.9% 1000 ML INJ 1,000 ML IV ONE (10:20)
[2017-10-03] MEDS ORDERED: MISCELLANEOUS NURSING INFORMATION XX PRN (10:45)
[2017-10-03] MEDS ORDERED: SODIUM CHLORIDE 0.9% 50 ML BAG IVF ONE (10:45)
[2017-10-03] MEDS ORDERED: ALTEPLASE BOLUS 9 MG/9 ML SYR IV ONE (10:45)
[2017-10-03] MEDS ORDERED: ALTEPLASE DRIP 81 MG in SYRINGE/BAG 1 EA IV ONE (10:45)
--- NOTE | 2017-10-03 10:49 | RADRPT ---
EXAM DATE/TIME: 10/03/2017 10:35 [facility] COMPARISON: CHEST SINGLE AP, October 27, 2016, 7:34. CT BRAIN W/O CONTRAST, September 11, 2016, 1:49. INDICATIONS : Dysarthria, Aphasia RADIATION DOSE: 37.04 CTDIvol (mGy) This report was attempted to be called by Dr. Chris to Dr. Garcia at 10: 44 AM. No answer. MEDICAL HISTORY : Hypertension. Diabetes mellitus type 2. SURGICAL HISTORY : Non-responsive. ENCOUNTER: Initial ACUITY: 1 day PAIN SCALE: Non-responsive LOCATION: cranial TECHNIQUE: Multiple contiguous axial images were obtained of the head. Using automated exposure control and adj ustment of the mA and/or kV according to patient size, radiation dose was kept as low as reasonably a chievable to obtain optimal diagnostic quality images. DICOM format image data is available electro nically for review and comparison. FINDINGS: CEREBRUM: The ventricles are normal for age. No evidence of midline shift, mass lesion, hemorrhage or acute in farction. No extra-axial fluid collections are seen. POSTERIOR FOSSA: The cerebellum and brainstem are intact. The 4th ventricle is midline. The cerebellopontine angle i s unremarkable. EXTRACRANIAL: There is mucoperiosteal thickening of the paranasal sinuses, most severe of the maxillary air cells a nd worse than before. SKULL: The calvaria is intact. No evidence of skull fracture. CONCLUSION: No acute intracranial abnormality demonstrated. Worsening chronic sinus disease. Dre Chris MD on October 03, 2017 at 10:42 Board Certified Radiologist. This report was verified electronically.
[2017-10-03] MEDS ORDERED: ASPI-183 PO (11:00)
[2017-10-03] MEDS ORDERED: METO1TAB9 PO (11:00)
[2017-10-03] MEDS ORDERED: HYDR-3288 PO (11:00)
[2017-10-03] MEDS ORDERED: ONDANSETRON HCL 4 MG/2 ML VIAL IV PUSH ONE ×2 (11:00→12:45)
[2017-10-03] MEDS ORDERED: HYDR-3798 PO (11:00)
[2017-10-03] MEDS ORDERED: ACETAMINOPHEN 325 MG TAB PO ONE (11:00)
[2017-10-03] MEDS ORDERED: CITA40TA4 PO (11:00)
[2017-10-03] MEDS ORDERED: QUIN40TA22 PO (11:00)
[2017-10-03] MEDS ORDERED: ISOS30TA3 PO (11:00)
[2017-10-03] MEDS ORDERED: LEVO150T7 PO (11:00)
[2017-10-03] MEDS ORDERED: POTA-255 PO (11:00)
[2017-10-03] MEDS ORDERED: HUMALOG SQ (11:00)
[2017-10-03] MEDS ORDERED: VITA500T4 PO (11:00)
[2017-10-03 11:03] LABS: AUTOMATED NEUTROPHIL # 7.3 TH/MM3 (1.8-7.7); BASOPHIL # 0.1 TH/MM3 (0-0.2); BASOPHIL % 1.2 % (0.0-2.0); EOSINOPHIL # 0.2 TH/MM3 (0-0.4); EOSINOPHIL % 1.5 % (0.0-4.0); HEMATOCRIT 39.5 % (35.0-46.0); LYMPH % 21.3 % (9.0-44.0); LYMPHOCYTE # 2.4 TH/MM3 (1.0-4.8); MEAN CELL VOLUME 83.8 FL (80.0-100.0); MEAN CORPUSCULAR HEMOGLOBIN 27.5 PG (27.0-34.0); MEAN CORPUSCULAR HGB CONC 32.8 % (32.0-36.0); MEAN PLATELET VOLUME 7.8 FL (7.0-11.0); MONOCYTE # 1.4 TH/MM3 (0-0.9); PLATELET COUNT 445 TH/MM3 (150-450); RED BLOOD COUNT 4.72 MIL/MM3 (4.00-5.30); RED CELL DISTRIBUTION WIDTH 15.4 % (11.6-17.2); WHITE BLOOD COUNT 11.4 TH/MM3 (4.0-11.0)
[2017-10-03 11:11] LABS: PROTHROMBIN TIME - PATIENT 9.8 SEC (9.8-11.6)
[2017-10-03 11:31] LABS: TROPONIN I LESS THAN 0.02 NG/ML (0.02-0.05)
--- NOTE | 2017-10-03 11:56 | PD ---
HPI Chief Complaint: Stroke Alert Time Seen by Provider: 10:19 Travel History International Travel<30 days: No Contact w/Intl Traveler<30days: No Traveled to known affect area: No History of Present Illness HPI Patient is a 76-year-old female who comes in due to difficulty speaking. Her , they woke up and had breakfast like normal this morning and she was feeling fine. He says he left to go to the bank and when he got back, she is unable to speak to him. He says it started about 45 minutes prior to arrival. He says that she was in her normal state of health prior to this episode and had no complaints this morning. She is awake and alert, but having difficulty finding words, so history is limited from the patient. PFSH Past Medical History Hx Anticoagulant Therapy: Yes (ASA) Arthritis: Yes Asthma: Yes Autoimmune Disease: No Anxiety: Yes Depression: Yes Heart Rhythm Problems: Yes (Irregular) Cancer: No Cardiac Catheterization: Yes Cardiovascular Problems: Yes High Cholesterol: Yes Chest Pain: No Congestive Heart Failure: No COPD: No Cerebrovascular Accident: No Diabetes: Yes Diminished Hearing: No Diverticulitis: Yes Endocrine: Yes Gastrointestinal Disorders: Yes (Diverticulatis, Abdominal Surgery) GERD: Yes Genitourinary: No Headaches: No Hepatitis: No Hiatal Hernia: Yes Hypertension: Yes Immune Disorder: No Implanted Vascular Access Dvce: Yes Kidney Stones: No Musculoskeletal: Yes (Arthritis, Neck) Neurologic: Yes (Neuropathy big toes) Psychiatric: Yes Reproductive: No Respiratory: Yes (ASTHMA) Immunizations Current: No Migraines: No Renal Failure: No Seizures: No Sleep Apnea: No Thyroid Disease: Yes (Hypothyrodism) Ulcer: Yes ?: Not Menopausal: Yes : 4 Para: 4 Miscarriage: 0 : 0 Past Surgical History Abdominal Surgery: Yes (COLOSTOMY, REVERSAL OF COLOSTOMY) AICD: No Arteriovenous Shunt: No Body Medical Devices: Cardiac stent, Bilateral knees Cardiac Surgery: Yes (CORONARY STENTS) Coronary Stent: Yes Ear Surgery: No Endocrine Surgery: No Eye Surgery: No Genitourinary Surgery: No Gynecologic Surgery: Yes (HYSTERECTOMY) Hysterectomy: Yes Insulin Pump: No Joint Replacement: Yes (BETZAIDA. KNEES) Neurologic Surgery: No Oral Surgery: No Pacemaker: No Thoracic Surgery: No Other Surgery: Yes (Abdominal, Bilateral knee, Stent) Social History Alcohol Use: No Tobacco Use: No Substance Use: No Allergies-Medications (Allergen,Severity, Reaction): Coded Allergies: Fish Containing Products (Verified Allergy, Severe, HIVES, 10/03/17) Sulfa (Sulfonamide Antibiotics) (Verified Allergy, Severe, STOPS BREATHING , "SULFA POISONING", 10/03/17) egg (Verified Allergy, Severe, DYSPNEA, SWELLING, 10/03/17) WHEN MIXED WITH CULTURES FOR IMMUNIZATIONS erythromycin base (Verified Allergy, Severe, HIVES, TROUBLE BREATHING, 10/03) iodine (Verified Allergy, Severe, SWELLING, 10/03/17) mold (Verified Allergy, Severe, ITCHING, 10/03/17) DYSPNEA penicillin G (Verified Allergy, Severe, STOPS BREATHING, 10/03/17) potassium iodide (Verified Allergy, Severe, SWELLING, 10/03/17) povidone-iodine (Verified Allergy, Severe, SWELLING, 10/03/17) sodium iodide (Verified Allergy, Severe, SWELLING, 10/03/17) sodium iodide (Verified Allergy, Severe, SWELLING, 10/03/17) metformin (Verified Adverse Reaction, Severe, DIARRHEA, GASTRIC CRAMPING, 10/03/17) morphine (Verified Adverse Reaction, Unknown, STATES MAKES HER "TOO SLEEPY " - REFUSES, 10/03/17) Uncoded Allergies: MERCURY (Allergy, Severe, 09/10/16) Reported Meds & Prescriptions Reported Meds & Active Scripts Active Xanax (Alprazolam) 0.25 Mg Tab 0.25 Mg PO Q6HR PRN Reported Humalog Inj (Insulin Human Lispro) 1,000 Unit/10 Ml Vial SQ ACHS PER SLIDING SCALE [place] (Hydrocodone-Acetaminophen) 7.5-325 mg Tab 1 Tab PO Q6H PRN Potassium (Potassium Gluconate) 600 Mg (99 Mg) Tablet 595 Mg PO DAILY Vitamin B-12 (Cyanocobalamin) 500 Mcg Tab 500 Mcg PO DAILY Quinapril HCl 40 Mg Tablet 40 Mg PO BID Hydralazine HCl 10 Mg Tablet 10 Mg PO DAILY Metoprolol Succinate ER 24 HR (Metoprolol Succinate) 50 Mg Tab 50 Mg PO DAILY Isosorbide Mononitrate ER (Isosorbide Mononitrate) 30 Mg Tree 30 Mg PO DAILY Aspirin 325 Mg Tab 325 Mg PO DAILY Citalopram (Citalopram Hydrobromide) 40 Mg Tab 40 Mg PO DAILY Levothyroxine (Levothyroxine Sodium) 150 Mcg Tab 150 Mcg PO DAILY Lantus Solostar Pen Inj (Insulin Glargine) 300 Unit/3 Ml Pen 65 Units SQ BID Proair Hfa 8.5 GM Inh (Albuterol Sulfate) 90 Mcg/Act Aer 1 Puff INH Q4H PRN 108 mcg/actuation Symbicort Inh (Budesonide/Formoterol Fumarate) 160-4.5 Mcg/Act Aero 2 Puff INH DAILY Zetia (Ezetimibe) 10 Mg Tab 10 Mg PO DAILY Felodipine ER (Felodipine) 10 mg Tree 10 Mg PO DAILY Review of Systems ROS Limitations: Clinical Condition Physical Exam Narrative GENERAL: Awake and alert, in no acute distress. SKIN: Focused skin assessment warm/dry. HEAD: Atraumatic. Normocephalic. EYES: Pupils equal and round. No scleral icterus. ENT: Mucous membranes pink and moist. NECK: Trachea midline. No JVD. CARDIOVASCULAR: Regular rate and rhythm. No murmur appreciated. RESPIRATORY: No accessory muscle use. Clear to auscultation. Breath sounds equal bilaterally. GASTROINTESTINAL: Abdomen soft, non-tender, nondistended. MUSCULOSKELETAL: No obvious deformities. No clubbing. No cyanosis. No edema. NEUROLOGICAL: Awake and alert. No obvious cranial nerve deficits. Motor grossly within normal limits. Word finding difficulties with some dysarthria. PSYCHIATRIC: Appropriate mood and affect; insight and judgment normal. Data Data Last Documented VS Vital Signs Date Time Temp Pulse Resp B/P (MAP) Pulse Ox O2 Delivery O2 Flow Rate FiO2 10/03/17 10:46 86 18 180/74 (109) 97 Room Air 10/03/17 10:05 98.5 Orders Orders Diet Npo (10/03/17 Lunch) Activity Bed Rest (10/03/17 ) Electrocardiogram (10/03/17 ) I-Stat Profile (10/03/17 10:20) Prothrombin Time / Inr (Pt) (10/03/17 10:20) Act Partial Throm Time (Ptt) (10/03/17 10:20) Complete Blood Count With Diff (10/03/17 10:20) Fibrinogen (10/03/17 10:20) Creatine Kinase (Cpk) (10/03/17 10:20) Troponin I (10/03/17 10:20) Ua Includes Microscopic (10/03/17 10:20) Drug Screen, Random Urine (10/03/17 10:20) Type And Screen (10/03/17 10:20) Ct Brain W/O Iv Contrast(Rout) (10/03/17 ) Consult Neurology (10/03/17 ) Blood Glucose (10/03/17 10:20) Ecg Monitoring (10/03/17 10:20) Neuro Checks Q2HX12,Q4H (10/03/17 10:20) Nursing Bedside Swallow Assess .ONCE (10/03/17 10:20) Iv Access Insert/Monitor (10/03/17 10:20) NPO (10/03/17 10:20) Oximetry (10/03/17 10:20) Resp Oxygen Nc Stroke (10/03/17 ) Sodium Chlor 0.9% 1000 Ml Inj (Ns 1000 M (10/03/17 10:20) Cath For Specimen (10/03/17 10:20) Mri Brain W&W/O Contrast (10/03/17 ) Mra Brain W/O Contrast (Cow) (10/03/17 ) Mra Carotids W Contrast (10/03/17 ) (Hub Use Only)Inp Phy Cons/Ref (10/03/17 ) ^ Call Pharmacy (10/03/17 10:41) Nih Stroke Scale - Nihss .ONCE (10/03/17 10:41) Urinary Catheter Insert/Apply (10/03/17 10:41) Anticoagulant Alert (10/03/17 10:41) ^ Post Infusion Restrictions (10/03/17 10:41) ^ Medication Alert (10/03/17 10:41) Vital Signs (Adult) .As directed (10/03/17 10:41) Notify Dr: Blood Pressure (10/03/17 10:41) ^ Medication Alert (10/03/17 10:41) Alteplase Bolus (Activase Bolus) (10/03/17 10:45) Alteplase Drip (Activase Drip) (10/03/17 10:45) Sodium Chloride 0.9% Inj (Ns Inj) (10/03/17 10:45) Misc Nursing Information (10/03/17 10:45) Resp Oxygen Nc Stroke (10/03/17 ) Ct Brain W/O Iv Contrast(Rout) (10/04/17 ) Acetaminophen (Tylenol) (10/03/17 11:00) Ondansetron Inj (Zofran Inj) (10/03/17 11:00) Labs Laboratory Tests Test 10/03/17 10:20 10/03/17 11:29 White Blood Count 11.4 TH/MM3 Red Blood Count 4.72 MIL/MM3 Hemoglobin 13.0 GM/DL Bedside Hemoglobin 13.6 G/DL Hematocrit 39.5 % Bedside Hematocrit 40.0 % Mean Corpuscular Volume 83.8 FL Mean Corpuscular Hemoglobin 27.5 PG Mean Corpuscular Hemoglobin Concent 32.8 % Red Cell Distribution Width 15.4 % Platelet Count 445 TH/MM3 Mean Platelet Volume 7.8 FL Neutrophils (%) (Auto) 64.0 % Lymphocytes (%) (Auto) 21.3 % Monocytes (%) (Auto) 12.0 % Eosinophils (%) (Auto) 1.5 % Basophils (%) (Auto) 1.2 % Neutrophils # (Auto) 7.3 TH/MM3 Lymphocytes # (Auto) 2.4 TH/MM3 Monocytes # (Auto) 1.4 TH/MM3 Eosinophils # (Auto) 0.2 TH/MM3 Basophils # (Auto) 0.1 TH/MM3 CBC Comment DIFF FINAL Differential Comment Prothrombin Time 9.8 SEC Prothromb Time International Ratio 1.0 RATIO Activated Partial Thromboplast Time 22.6 SEC Fibrinogen 375 mg/dL Bedside Sodium 136 MMOL/L Bedside Potassium 4.3 MMOL/L Bedside Chloride 101 MMOL/L Bedside Blood Urea Nitrogen 16 MG/DL Bedside Creatinine 0.7 MG/DL Bedside Glucose 150 MG/DL Total Creatine Kinase 87 U/L Troponin I LESS THAN 0.02 NG/ML [facility] Medical Screen Exam Complete: Yes Emergency Medical Condition: Yes Medical Record Reviewed: Yes Differential Diagnosis CVA versus ICH versus TIA versus electrolyte abnormality Narrative Course Patient is a 76-year-old female who comes in due to strokelike symptoms. Stroke alert issued, patient taken for CT scan. CT of the head shows no bleed. I discussed with the patient's giving TPA. The states that she would want to the TPA because she would not want to live in her current condition. He understands the risks and benefits of the medication and consents for TPA. Patient did start to complain a headache while in CAT scan. She was given Tylenol and some Zofran for nausea. Blood pressure was controlled without medication. Labs show no acute abnormalities. Neurology was consulted. Patient will be admitted for further management. Critical Care Narrative Aggregate critical care time was 35 minutes. Time to perform other separately billable procedures was not included in the critical care time. My time did not include minutes spent treating any other patients simultaneously or on activities that did not directly contribute to the patient's treatment. The services I provided to this patient were to treat and/or prevent clinically significant deterioration that could result in: Serious illness or I provided critical care services requiring my management, as noted below: Chart data review, documentation time, medication orders and management, vital sign assessments/reviewing monitor data, ordering and reviewing lab tests, ordering and interpreting/reviewing x-rays and diagnostic studies, care of the patient and discussion of the patient with the admitting physicians. Stroke Alert NIHSS NIH Stroke Scale Result: 3 NIHSS Time Completed: 10:05 Diagnosis Diagnosis: Primary Impression: CVA (cerebral vascular accident) Qualified Codes: I63.9 - Cerebral infarction, unspecified Admitting Physician Requests: it Lisa Garcia MD Oct 03, 2017 11:56
[2017-10-03 12:00] LABS: BILIRUBIN, URINE NEG (NEG); BLOOD, URINE NEG (NEG); GLUCOSE,URINE NEG (NEG); KETONE, URINE NEG (NEG); NITRITE,URINE NEG (NEG); SQUAMOUS EPITHELIAL CELL URINE 3 /hpf (0-5); TRANSITIONAL EPI CELLS, URINE <1 /hpf; URINE COLOR YELLOW (YELLW/STRAW); URINE LEUKOCYTE ESTERASE LARGE (NEG)
[2017-10-03] MEDS ORDERED: LORazepam 2 MG/ML VIAL IV PUSH ONE (12:45)
[2017-10-03] MEDS ORDERED: SODIUM CHLORIDE 0.9% FLUSH 10 ML FLUSH IV FLUSH PRN (13:00)
[2017-10-03] MEDS ORDERED: ONDANSETRON HCL 4 MG/2 ML VIAL IV PUSH PRN (13:00)
[2017-10-03] MEDS ORDERED: MAGNESIUM HYDROXIDE SUSP 30 ML CUP PO PRN (13:00)
[2017-10-03] MEDS ORDERED: RESP: ALBUTEROL 2.5 MG/3 ML NEB (PRN) INH (13:00)
[2017-10-03] MEDS ORDERED: BISACODYL 10 MG SUPP RECTAL PRN (13:00)
[2017-10-03] MEDS ORDERED: LACTULOSE SYRUP 20 GM/30 ML CUP PO PRN (13:00)
[2017-10-03] MEDS ORDERED: MISCELLANEOUS NURSING INFORMATION XX SCH (13:00)
[2017-10-03] MEDS ORDERED: SENNOSIDES 8.6 MG TAB PO PRN (13:00)
[2017-10-03] MEDS ORDERED: ACETAMINOPHEN 325 MG TAB PO PRN (13:00)
[2017-10-03] MEDS ORDERED: MIDAZOLAM HCL 2 MG/2 ML VIAL ONE (13:20)
[2017-10-03] MEDS: SODIUM CHLOR 0.9% 1000 ML INJ 1,000 ML IV SCH (13:25)
[2017-10-03] MEDS ORDERED: MIDAZOLAM HCL 2 MG/2 ML VIAL IV PUSH ONE (13:30)
[2017-10-03] MEDS ORDERED: DEXTROSE 50% IN WATER 50 ML VIAL(D50) IV PUSH PRN (13:45)
[2017-10-03] MEDS ORDERED: GLUCAGON 1 MG/ML VIAL OTHER PRN (13:45)
--- NOTE | 2017-10-03 13:55 | RADRPT ---
EXAM DATE/TIME: 10/03/2017 12:52 [facility] COMPARISON: No previous studies available for comparison. INDICATIONS : Aphasia. MEDICAL HISTORY : Hypertension. Diabetes mellitus type 2. SURGICAL HISTORY : Stomach surgeries, Knee replacement ENCOUNTER: Initial ACUITY: 1 day PAIN SCORE: 0/10 LOCATION: cranial Please note a normal MRA of the brain does not entirely exclude the possibility of a small aneurysm, nor the possibility of distal intracranial vessel disease. TECHNIQUE: 3D time of flight MRA was performed. Source images, multiplanar STS MIP, and 3D volume MIP reconstru ctions were reviewed. FINDINGS: There is excellent visualization of the major intracranial arteries out to the second-order branch ve ssels. There is no evidence for aneurysm, vessel truncation or stenosis, and no evidence for vascula r malformation. CONCLUSION: Intracranial arteries are within normal limits. Dre Chris MD on October 03, 2017 at 13:53 Board Certified Radiologist. This report was verified electronically.
--- NOTE | 2017-10-03 14:08 | RADRPT ---
EXAM DATE/TIME: 10/03/2017 12:52 [facility] COMPARISON: MRA CAROTIDS W CONTRAST, October 03, 2017, 12:52. MRA BRAIN W/O CONTRAST, October 03, 2017, 12:52. CT B RAIN W/O CONTRAST, October 03, 2017, 10:35. INDICATIONS : Aphasia. CONTRAST: 20 cc Omniscan (gadodiamide) IV MEDICAL HISTORY : Hypertension. Diabetes mellitus type 2. SURGICAL HISTORY : knee replacement, stomach surgery ENCOUNTER: Initial ACUITY: 1 day PAIN SCORE: 0/10 LOCATION: cranial TECHNIQUE: Multiplanar, multisequence MRI of the brain was performed both prior to and following the administrat ion of paramagnetic contrast. FINDINGS: CEREBRUM: The ventricles are normal for age. No evidence of midline shift, mass lesion, hemorrhage or acute in farction. No extraaxial fluid collections are seen. Empty sella. WHITE MATTER: Very mild chronic flair signal abnormality in the periventricular white matter of both vertebral juan spheres. POSTERIOR FOSSA: The cerebellum and brainstem are intact. The 4th ventricle is midline. The cerebellopontine angle is unremarkable. The cerebellar tonsils are normal in position. DIFFUSION IMAGING: No focal areas of restricted diffusion are seen. No evidence of acute infarction. EXTRACRANIAL: The visualized portions of the orbits and paranasal sinuses are unremarkable. POST-CONTRAST: No abnormal areas of parenchymal or dural enhancement. No evidence of blood-brain barrier breakdown. CONCLUSION: 1. No bleed, acute infarct or other acute intracranial abnormality. 2. Mild, chronic periventricular white matter changes. 3. Incidentally seen empty sella. 4. Chronic-appearing sinus disease. Dre Chris MD on October 03, 2017 at 14:04 Board Certified Radiologist. This report was verified electronically.
--- NOTE | 2017-10-03 14:10 | RADRPT ---
EXAM DATE/TIME: 10/03/2017 12:52 [facility] COMPARISON: MRI BRAIN W & W/O CONTRAST, October 03, 2017, 12:52. MRA BRAIN W/O CONTRAST, October 03, 2017, 12:52. CT BRAIN W/O CONTRAST, October 03, 2017, 10:35. INDICATIONS : Aphasia. CONTRAST: 20 cc Omniscan (gadodiamide) IV MEDICAL HISTORY : Hypertension. Diabetes mellitus type 2. SURGICAL HISTORY : stomach surgery, knee replacement ENCOUNTER: Initial ACUITY: 1 day PAIN SCORE: 0/10 LOCATION: cranial Percent stenosis is calculated using the diameter of the stenotic region over the diameter of the nor mal distal internal carotid artery. TECHNIQUE: Bolus infused MRA of the extracranial circulation was performed using a neurovascular coil. Post pro cessing was performed including rotating subvolume maximum intensity projections of each carotid roro ry, rotating full volume maximum intensity projections of both carotid arteries, sagittal and coronal sliding thin slab reformations of each carotid artery, and left oblique sliding thin slab reformatio n through the aortic arch to include the origin of the arch branch vessels. FINDINGS: AORTIC ARCH: There is a three vessel origin of the great vessels from the aorta. No evidence of ostial narrowing. RIGHT CAROTID: There is an approximately 5 mm long, 30% stenosis of the proximal right internal carotid artery that appears chronic/atherosclerotic. LEFT CAROTID: The common carotid artery is intact. The carotid bulb has a normal configuration without ulceration or narrowing. The internal carotid artery lumen is smooth without stenosis. The external carotid ar ana lilia is intact. VERTEBRALS: The vertebral arteries have a symmetric diameter. No stenotic lesions are seen. CONCLUSION: Short segment, non-hemodynamic stenosis of the proximal right internal carotid artery. Otherwise with in normal limits. Dre Chris MD on October 03, 2017 at 14:07 Board Certified Radiologist. This report was verified electronically.
[2017-10-03] MEDS ORDERED: GADODIAMIDE PF 287 MG/ML 20 ML VIAL (for RAD MRI) IV PUSH ONE (14:22)
--- NOTE | 2017-10-03 14:35 | HHI.HP ---
[facility] Service Critical Care Medicine Primary Care Physician Jeimy Fontenot MD Admission Diagnosis Stroke Diagnosis: (1) CVA (cerebral vascular accident) Diagnosis: Principal (2) Hyperglycemia Diagnosis: Principal (3) Essential hypertension Diagnosis: Principal (4) Anxiety Diagnosis: Principal (5) Insulin dependent diabetes mellitus Diagnosis: Principal (6) Hypothyroidism Diagnosis: Principal (7) Hyperlipidemia Diagnosis: Secondary (8) Leukocytosis Diagnosis: Principal (9) Hyponatremia Diagnosis: Secondary (10) BMI 40.0-44.9, adult Diagnosis: Principal Chief Complaint: Dysarthria/aphasia Travel History International Travel<30 Days: No Contact w/Intl Traveler <30 Da: No Traveled to Known Affected Are: No Sepsis Criteria SIRS Criteria (2 or more): Heart rate over 90, WBC > 68174, < 4000 or > 10% bands Criteria Outcome: Meets SIRS criteria History of Present Illness This is a 76-year-old female. Date of admission 10/03/2017. Past medical history includes hypertension, dyslipidemia, reactive airway disease, depression/anxiety, osteoarthritis/rheumatoid arthritis, hypothyroidism, peripheral vascular diseaseP. She presents to [facility] today with a chief complaint of difficulty speaking.. According to her , no acute findings the same. Patient woke up and had breakfast for her routine with her . He says he left to go to the bank and when he got back within an hour , she is unable to speak to him. He says it started approximately 45 minutes prior to arrival. He says that she was in her normal state of health prior to this episode and had no complaints this morning. She is awake and alert, but having difficulty finding words, so history is limited from the patient. NIH score 3 for dysarthria/aphasia CT brain revealed no acute intracranial findings. Some periventricular white matter changes. Discussed with neurology recommended alteplase. Patient received the 9 mg bolus followed by 81 mg over an hour. Follow-up MRI of the brain revealed an empty sella and some periventricular white matter changes and otherwise unremarkable. MRI brain revealed no acute intracranial findings. MRI neck revealed right proximal internal carotid stenosis not flow limiting. Review of Systems Constitutional: COMPLAINS OF: Weight loss, DENIES: Fatigue, Fever, Weight gain Endocrine: DENIES: Polydipsia, Polyuria Eyes: COMPLAINS OF: Vision loss, DENIES: Blurred vision Ears, nose, mouth, throat: DENIES: Tinnitus, Odynophagia Respiratory: DENIES: Apneas, Shortness of breath Cardiovascular: DENIES: Chest pain, Palpitations, Syncope Gastrointestinal: DENIES: Abdominal pain, Diarrhea, Nausea, Vomiting Genitourinary: DENIES: Urinary frequency, Urinary incontinence Musculoskeletal: DENIES: Muscle aches, Stiffness Integumentary: DENIES: Pruritus, Rash Hematologic/lymphatic: DENIES: Bruising Immunologic/allergic: DENIES: Eczema Neurologic: DENIES: Localized weakness Psychiatric: COMPLAINS OF: Anxiety, DENIES: Confusion, Depression Past Family Social History Allergies: Coded Allergies: Fish Containing Products (Verified Allergy, Severe, HIVES, 10/03/17) Sulfa (Sulfonamide Antibiotics) (Verified Allergy, Severe, STOPS BREATHING , "SULFA POISONING", 10/03/17) egg (Verified Allergy, Severe, DYSPNEA, SWELLING, 10/03/17) WHEN MIXED WITH CULTURES FOR IMMUNIZATIONS erythromycin base (Verified Allergy, Severe, HIVES, TROUBLE BREATHING, 10/03) iodine (Verified Allergy, Severe, SWELLING, 10/03/17) mold (Verified Allergy, Severe, ITCHING, 10/03/17) DYSPNEA penicillin G (Verified Allergy, Severe, STOPS BREATHING, 10/03/17) potassium iodide (Verified Allergy, Severe, SWELLING, 10/03/17) povidone-iodine (Verified Allergy, Severe, SWELLING, 10/03/17) sodium iodide (Verified Allergy, Severe, SWELLING, 10/03/17) sodium iodide (Verified Allergy, Severe, SWELLING, 10/03/17) metformin (Verified Adverse Reaction, Severe, DIARRHEA, GASTRIC CRAMPING, 10/03/17) morphine (Verified Adverse Reaction, Unknown, STATES MAKES HER "TOO SLEEPY " - REFUSES, 10/03/17) Uncoded Allergies: MERCURY (Allergy, Severe, 09/10/16) Past Medical History Hypertension/essential Dyslipidemia Chronic narcotic use Chronic benzodiazepine use Reactive airway disease Hypothyroidism Diabetes mellitus insulin requiring Depression/anxiety Lumbar stenosis Osteoarthritis/rheumatoid arthritis Peptic ulcer disease/gastroesophageal reflux disease Past Surgical History LAR Ventral hernia repair Lysis of adhesions Gibson's pouch Sigmoid colectomy/colostomy with reversal Coronary artery stent Hysterectomy Bilateral total knee replacement Reported Medications Albuterol aerosols inhaler every 4 hours as needed Ezetimibe 10 mg p.o. daily Hydralazine 10 mg p.o. daily Isosorbide mononitrate 30 mg p.o. daily Metoprolol succinate 50 mg p.o. daily Felodipine 10 mg p.o. daily Quinapril 40 mg p.o. twice daily Aspirin 81 mg p.o. daily Hydrocodone/acetaminophen 7.5/325 1 tablet every 6 hours as needed Alprazolam 0.25 mg p.o. every 6 hours as needed Citalopram 40 mg p.o. daily Potassium gluconate 595 mg p.o. daily Budesonide/formoterol 160/4.5 2 puffs daily Insulin detemir 65 units twice daily Insulin lispro sliding scale insulin Levothyroxine 150 mcg p.o. daily Vitamin B12 500 mcg p.o. daily Active Ordered Medications Reviewed in EMR Family History Positive history of CVA and coronary artery disease. Social History No documentation of tobacco, alcohol or illicit drug use Physical Exam Vital Signs Vital Signs Date Time Temp Pulse Resp B/P (MAP) Pulse Ox O2 Delivery O2 Flow Rate FiO2 10/03/17 14:00 98.0 63 17 137/60 (85) 97 Room Air 10/03/17 12:33 96 Nasal Cannula 2.00 10/03/17 12:00 16 10/03/17 10:46 86 18 180/74 (109) 97 Room Air 10/03/17 10:23 17 97 Room Air 10/03/17 10:23 97 Room Air 10/03/17 10:10 67 17 97 Room Air 10/03/17 10:05 98.5 89 17 177/79 (111) 96 Physical Exam GENERAL: 76-year-old female currently resting in bed in no acute distress SKIN: Warm and dry. HEAD: Atraumatic. Normocephalic. EYES: Pupils equal and round. No scleral icterus. No injection or drainage. ENT: No nasal bleeding or discharge. Mucous membranes pink and moist. NECK: Trachea midline. No JVD. CARDIOVASCULAR: Regular rate and rhythm. RESPIRATORY: No accessory muscle use. Clear to auscultation. Breath sounds equal bilaterally. GASTROINTESTINAL: Abdomen soft, non-tender, nondistended. Hepatic and splenic margins not palpable. MUSCULOSKELETAL: Extremities with trace bilateral lower extremity edema. No obvious deformities. NEUROLOGICAL: Awake and alert. Expressive aphasia. Dysarthria. Strength appears equal and symmetric 5+5 bilateral upper and lower extremity. Normal sensation. Laboratory Laboratory Tests Test 10/03/17 10:20 10/03/17 11:29 White Blood Count 11.4 Red Blood Count 4.72 Hemoglobin 13.0 Bedside Hemoglobin 13.6 Hematocrit 39.5 Bedside Hematocrit 40.0 Mean Corpuscular Volume 83.8 Mean Corpuscular Hemoglobin 27.5 Mean Corpuscular Hemoglobin Concent 32.8 Red Cell Distribution Width 15.4 Platelet Count 445 Mean Platelet Volume 7.8 Neutrophils (%) (Auto) 64.0 Lymphocytes (%) (Auto) 21.3 Monocytes (%) (Auto) 12.0 Eosinophils (%) (Auto) 1.5 Basophils (%) (Auto) 1.2 Neutrophils # (Auto) 7.3 Lymphocytes # (Auto) 2.4 Monocytes # (Auto) 1.4 Eosinophils # (Auto) 0.2 Basophils # (Auto) 0.1 CBC Comment DIFF FINAL Differential Comment Prothrombin Time 9.8 Prothromb Time International Ratio 1.0 Activated Partial Thromboplast Time 22.6 Fibrinogen 375 Bedside Sodium 136 Bedside Potassium 4.3 Bedside Chloride 101 Bedside Blood Urea Nitrogen 16 Bedside Creatinine 0.7 Bedside Glucose 150 Total Creatine Kinase 87 Troponin I LESS THAN 0.02 Urine Color YELLOW Urine Turbidity CLEAR Urine pH 7.0 Urine Specific [place] 1.014 Urine Protein NEG Urine Glucose (UA) NEG Urine Ketones NEG Urine Occult Blood NEG Urine Nitrite NEG Urine Bilirubin NEG Urine Urobilinogen LESS THAN 2.0 Urine Leukocyte Esterase LARGE Urine RBC LESS THAN 1 Urine WBC 1 Urine Squamous Epithelial Cells 3 Urine Transitional Epithelial Cells <1 Urine Opiates Screen NEG Urine Barbiturates Screen NEG Urine Amphetamines Screen NEG Urine Benzodiazepines Screen NEG Urine Cocaine Screen NEG Urine Cannabinoids Screen NEG Result Diagram: 10/03/17 1020 Imaging Last Impressions Neck Magnetic Resonance Angiography 10/03/17 0000 Signed Impressions: Service Date/Time: Tuesday, October 03, 2017 12:52 - CONCLUSION: Short segment, non-hemodynamic stenosis of the proximal right internal carotid artery. Otherwise within normal limits. Dre Chris MD Head Magnetic Resonance Angiography 10/03/17 0000 Signed Impressions: Service Date/Time: Tuesday, October 03, 2017 12:52 - CONCLUSION: Intracranial arteries are within normal limits. Dre Chris MD Head CT 10/03/17 0000 Signed Impressions: Service Date/Time: Tuesday, October 03, 2017 10:35 - CONCLUSION: No acute intracranial abnormality demonstrated. Worsening chronic sinus disease. Dre Chris MD Brain MRI 10/03/17 0000 Signed Impressions: Service Date/Time: Tuesday, October 03, 2017 12:52 - CONCLUSION: 1. No bleed, acute infarct or other acute intracranial abnormality. 2. Mild, chronic periventricular white matter changes. 3. Incidentally seen empty sella. 4. Chronic-appearing sinus disease. Dre Chris MD Septic Shock Reassessment Septic shock perfusion: reassessment completed Caprini VTE Risk Assessment Caprini VTE Risk Assessment: Mod/High Risk (score >= 2) Caprini Risk Assessment Model Point Value = 1 Point Value = 2 Point Value = 3 Point Value = 5 Age 41-60 Minor surgery BMI > 25 kg/m2 Swollen legs Varicose veins or History of unexplained or recurrent spontaneous Oral contraceptives or hormone replacement Sepsis (< 1 month) Serious lung disease, including pneumonia (< 1 month) Abnormal pulmonary function Acute myocardial infarction Congestive heart failure (< 1 month) History of inflammatory bowel disease Medical patient at bed rest Age 61-74 Arthroscopic surgery Major open surgery (> 45 min) Laparoscopic surgery (> 45 min) Malignancy Confined to bed (> 72 hours) Immobilizing plaster cast Central venous access Age >= 75 History of VTE Family history of VTE Factor V Leiden Prothrombin [id number] Lupus anticoagulant Anticardiolipin antibodies Elevated serum homocysteine Heparin-induced thrombocytopenia Other congenital or acquired thrombophilia Stroke (< 1 month) Elective arthroplasty Hip, pelvis, or leg fracture Acute spinal cord injury (< 1 month) Prophylaxis Regimen Total Risk Factor Score Risk Level Prophylaxis Regimen 0-1 Low Early ambulation 2 Moderate Order ONE of the following: *Sequential Compression Device (SCD) *Heparin 5000 units SQ BID 3-4 Higher Order ONE of the following medications: *Heparin 5000 units SQ TID *Enoxaparin/Lovenox 40 mg SQ daily (WT < 150 kg, CrCl > 30 mL/min) *Enoxaparin/Lovenox 30 mg SQ daily (WT < 150 kg, CrCl > 10-29 mL/min) *Enoxaparin/Lovenox 30 mg SQ BID (WT < 150 kg, CrCl > 30 mL/min) AND/OR *Sequential Compression Device (SCD) 5 or more Highest Order ONE of the following medications: *Heparin 5000 units SQ TID (Preferred with Epidurals) *Enoxaparin/Lovenox 40 mg SQ daily (WT < 150 kg, CrCl > 30 mL/min) *Enoxaparin/Lovenox 30 mg SQ daily (WT < 150 kg, CrCl > 10-29 mL/min) *Enoxaparin/Lovenox 30 mg SQ BID (WT < 150 kg, CrCl > 30 mL/min) AND *Sequential Compression Device (SCD) Assessment and Plan Assessment and Plan Neuro/Psych: CVA -symptomatology expressive aphasia and dysarthria Depression/anxiety Lumbar stenosis Chronic benzodiazepine use Chronic opiate use CT brain revealed no acute intracranial findings. MRI brain revealed periventricular white matter changes. Empty sella. MRA brain no acute findings MRA neck revealed right proximal internal carotid stenosis not flow-limiting Received alteplase 9 mg bolus followed by 81 mg over 1 hour Neurochecks Keep systolic blood pressure less than 180/diastolic pressure less than 105 Was supposed to see physician for JASWINDER 10/04. Currently on hold. PT/OT/ST evaluate and treat when appropriate Currently holding alprazolam 0.25 mg p.o. every 6 hours as needed anxiety Holding citalopram 40 mg p.o. daily. Resume clinically indicated Holding hydrocodone/acetaminophen 7.5/325 1 tablet every 6 hours as needed Follow-up with Dr. Rodriguez/neurology Repeat head CT 24 hours post alteplase CV: Essential hypertension Coronary artery disease status post PCI Dyslipidemia Goal keep systolic blood pressure less than 180, diastolic blood pressure was 105 Echocardiogram 12/17 revealed EF 60-65%. No regional wall motion abnormality. Home medications include felodipine 10 mg daily, metoprolol succinate 50 mg p.o. daily, isosorbide mononitrate 30 mg per day, hydralazine 10 mg p.o. daily and quinapril 40 mg twice daily for hypertension Labetalol, enalaprilat and nicardipine drip goal keep systolic blood pressure less than 180 status post alteplase Resume ezetimibe 10 mg p.o. daily 2D echo ordered Holding aspirin 325 mg daily 24 hours post alteplase Resp: Reactive airway disease Nasal cannula per CVA protocol Incentive spirometry while awake Currently on albuterol/ipratropium aerosols every 6 hours with albuterol aerosols every 2 hours as needed as needed for dyspnea Resume budesonide/formoterol 160/4.52 puffs daily GI: History of abdominal abscess Gastroesophageal reflux disease/peptic ulcer disease Patient is currently n.p.o. Pantoprazole for GI prophylaxis Docusate sodium/senna 1 tablet twice daily for bowel regimen : Thompson catheter if indicated for accurate I's and O's in a critically ill patient Endo: Diabetes mellitus Hyperglycemia Hypothyroidism Patient is on insulin glargine 65 units twice daily with insulin lispro sliding scale insulin at home Patient is on levothyroxine 150 mcg daily at home for hypothyroidism. Resume clinically indicated Currently on Novulin R medium sized with Accu-Cheks every 6 hours to maintain euglycemia Check hemoglobin A1c and TSH Renal: Creatinine currently within normal limits Monitor urine output Accurate I's and O's Heme: Leukocytosis Monitor CBC daily. Follow trends ID: Monitor for infection MSK: Osteoarthritis/rheumatoid arthritis Elevated BMI greater than 40 PT/OT evaluate and treat Weight loss encouraged FEN: Hyponatremia Currently normal saline 84 cc an hour. Replace electrolytes as clinically indicated Access- Utilize peripheral IV. Central line if indicated Prophylaxis -GI -pantoprazole -DVT -SCD/holding pharmacological prophylaxis 24 hours post alteplase. Level 3 admission Code Status Full code Discussed Condition With Dr. Green. Patient. Care plan discussed and all questions answered. Problem Qualifiers (1) CVA (cerebral vascular accident): Qualified Codes: I63.9 - Cerebral infarction, unspecified (2) Hypothyroidism: Qualified Codes: E03.9 - Hypothyroidism, unspecified (3) Hyperlipidemia: Qualified Codes: E78.5 - Hyperlipidemia, unspecified (4) Leukocytosis: Qualified Codes: D72.829 - Elevated white blood cell count, unspecified Efrain Orozco MD Oct 03, 2017 14:35
[2017-10-03] MEDS ORDERED: LABETALOL HCL 100 MG/20 ML VIAL IV PUSH PRN (15:00)
--- NOTE | 2017-10-03 15:29 | PD.CONS ---
History of Present Illness Service Neurology Consult Requested By er Reason for Consult stroke alert Primary Care Physician Jeimy Fontenot MD History of Present Illness 75-year-old female presents as stroke alert. acute onset of expressive aphasia. after waking up. somewhat confused and stuttering at time. no previous occurrence. no weakness. has le neuropathy and ambulates with walker. takes aspirin qd. no previous hx of tia/stroke. denies any hx of sz or active depression. ct brain naicp. no ich. glucose 150. bp 180/74 in er. iv captain's assistant d/w er md and pt, spouse. understand r/b/alternatives. 6% ich, systemic ich. wished to proceed with tx. chronic back pain x years. was supposed to see pain md for lupillo tomorrow. Review of Systems Except as stated in HPI: all other systems reviewed are Neg Past Family Social History Past Medical History PMH: HTN, Arthritis, Anxiety, Depression, Hyperlipidemia, COPD, dm, chronic back pain Past Surgical History PAST SURGICAL HISTORY: Allergies: Coded Allergies: Egg Allergy (Verified Allergy, Severe, DYSPNEA, SWELLING, 12/09/16) WHEN MIXED WITH CULTURES FOR IMMUNIZATIONS Erythromycin (Verified Allergy, Severe, HIVES, TROUBLE BREATHING, 12/09/16) Iodine (Verified Allergy, Severe, SWELLING, 12/09/16) Molds and Smuts (Verified Allergy, Severe, ITCHING, 12/09/16) DYSPNEA Penicillin (Verified Allergy, Severe, STOPS BREATHING, 12/09/16) Seafood (Verified Allergy, Severe, HIVES, 12/09/16) Sulfa (Verified Allergy, Severe, STOPS BREATHING, "SULFA POISONING", ) Metformin (Verified Adverse Reaction, Severe, DIARRHEA, GASTRIC CRAMPING, 12/09/16) Morphine (Verified Adverse Reaction, Unknown, STATES MAKES HER "TOO SLEEPY " - REFUSES, 12/09/16) Uncoded Allergies: MERCURY (Allergy, Severe, 09/10/16) social hx: lives with spouse, no tob/etoh use Review of Systems All other ROS: ROS reviewed as documented in chart Past Family Social History Allergies: Coded Allergies: Fish Containing Products (Verified Allergy, Severe, HIVES, 10/03/17) Sulfa (Sulfonamide Antibiotics) (Verified Allergy, Severe, STOPS BREATHING , "SULFA POISONING", 10/03/17) egg (Verified Allergy, Severe, DYSPNEA, SWELLING, 10/03/17) WHEN MIXED WITH CULTURES FOR IMMUNIZATIONS erythromycin base (Verified Allergy, Severe, HIVES, TROUBLE BREATHING, 10/03) iodine (Verified Allergy, Severe, SWELLING, 10/03/17) mold (Verified Allergy, Severe, ITCHING, 10/03/17) DYSPNEA penicillin G (Verified Allergy, Severe, STOPS BREATHING, 10/03/17) potassium iodide (Verified Allergy, Severe, SWELLING, 10/03/17) povidone-iodine (Verified Allergy, Severe, SWELLING, 10/03/17) sodium iodide (Verified Allergy, Severe, SWELLING, 10/03/17) sodium iodide (Verified Allergy, Severe, SWELLING, 10/03/17) metformin (Verified Adverse Reaction, Severe, DIARRHEA, GASTRIC CRAMPING, 10/03/17) morphine (Verified Adverse Reaction, Unknown, STATES MAKES HER "TOO SLEEPY " - REFUSES, 10/03/17) Uncoded Allergies: MERCURY (Allergy, Severe, 09/10/16) Active Ordered Medications Current Medications Medications (Trade) Dose Ordered Sig/Amador Route Start Time Stop Time Status Last Admin Sodium Chloride 1,000 ml @ 70 mls/hr [id number] ONCE IV 10/03/17 10:20 10/04/17 00:37 10/03/17 10:48 Miscellaneous Information No Heparin, Warfarin, Aspir... UNSCH PRN XX 10/03/17 10:45 10/04/17 10:44 Sodium Chloride 1,000 ml @ 84 mls/hr [id number] IV 10/03/17 12:48 10/03/17 13:25 (NS Flush) 2 ml UNSCH PRN IV FLUSH 10/03/17 13:00 (NS Flush) 2 ml BID IV FLUSH 10/03/17 21:00 (Tylenol) 650 mg Q6H PRN PO 10/03/17 13:00 (Protonix Inj) 40 mg DAILY IV PUSH 10/04/17 09:00 (Zofran Inj) 4 mg Q6H PRN IV PUSH 10/03/17 13:00 (Duoneb Neb) 1 ampule Q6HR NEB INH 10/03/17 16:00 (Albuterol Neb) 2.5 mg Q2HR NEB PRN INH 10/03/17 13:00 Miscellaneous Information 1 Q361D XX 10/03/17 13:00 (Rani-Colace) 1 tab BID PO 10/03/17 21:00 (Milk Of Magnesia Liq) 30 ml Q12H PRN PO 10/03/17 13:00 (Senokot) 17.2 mg Q12H PRN PO 10/03/17 13:00 (Dulcolax Supp) 10 mg DAILY PRN RECTAL 10/03/17 13:00 (Lactulose Liq) 30 ml DAILY PRN PO 10/03/17 13:00 (Vasotec Inj) 1.25 mg Q4H PRN IV PUSH 10/03/17 15:00 (Trandate Inj) 10 mg Q2H PRN IV PUSH 10/03/17 15:00 Nicardipine HCl 25 mg/Sodium Chloride 250 ml @ 50 mls/hr TITRATE PRN IV 10/03/17 15:00 (Pravachol) 40 mg HS PO 10/03/17 21:00 (D50w (Vial) Inj) 50 ml UNSCH PRN IV PUSH 10/03/17 13:45 (Glucagon Inj) 1 mg UNSCH PRN OTHER 10/03/17 13:45 (NovoLOG SUPPLEMENTAL SCALE) 1 Q6HR SQ 10/03/17 18:00 Exam I&O / VS 10/03/17 10/03/17 10/04/17 15:00 23:00 07:00 Intake Total 81 ml Balance 81 ml Intake IV Total 81 ml Vital Signs Date Time Temp Pulse Resp B/P (MAP) Pulse Ox O2 Delivery O2 Flow Rate FiO2 10/03/17 14:00 98.0 63 17 137/60 (85) 97 Room Air 10/03/17 12:33 96 Nasal Cannula 2.00 10/03/17 12:00 16 10/03/17 10:46 86 18 180/74 (109) 97 Room Air 10/03/17 10:23 17 97 Room Air 10/03/17 10:23 97 Room Air 10/03/17 10:10 67 17 97 Room Air 10/03/17 10:05 98.5 89 17 177/79 (111) 96 General: Alert and Oriented, No acute distress Eye: EOMI Respiratory: Non-labored respirations Musculoskeletal: ROM Neurologic: Alert, Oriented, CN II-XII intact, Normal DTR's Psychiatric: Cooperative, Appropriate mood & affect, Normal judgement Exam Comments alert, ox 3, follows, occasional stutter, able to conversates, eomi, vff, face sym, don to gravity, le stocking distribution reduced pin, no clonus, planterflexor, Review/Management Diagnosis/Plan: (1) Acute lacunar stroke ICD Codes: I63.9 - Cerebral infarction, unspecified Status: Acute Plan: s/p iv tpa symptoms resolved mri brain negative. probable tia vs resolved infarct with tpa mra brain/carotids nml recs post-tpa order set f/u ct brain in 24 hrs no blood thinners. scd check eeg bp <180/100 p.t./s.t. echo/lipid panel appreciate [employer] (2) Back pain, chronic ICD Codes: M54.9 - Dorsalgia, unspecified; G89.29 - Other chronic pain Status: Chronic Plan: pain control (3) Essential hypertension ICD Codes: I10 - Essential (primary) hypertension Status: Chronic Plan: keep <180/100 future goal <120/80 (4) Hyperlipidemia ICD Codes: E78.5 - Hyperlipidemia, unspecified Status: Chronic Problem Qualifiers (1) Back pain, chronic: (2) Hyperlipidemia: Qualified Codes: E78.5 - Hyperlipidemia, unspecified Juventino Rodriguez MD Oct 03, 2017 15:29
[2017-10-03] MEDS: RESP: ALBUTEROL 2.5 MG/IPRATROPIUM 0.5 MG NEB (SCH) INH ×3 (16:04→20:30)
[2017-10-03] MEDS ORDERED: ALPRAZolam 0.25 MG TAB PO PRN (16:30)
[2017-10-03] MEDS ORDERED: INSULIN ASPART SUPPLEMENTAL SCALE SQ SCH (17:00)
[2017-10-03] MEDS ORDERED: PILL SPLITTER OTHER PRN (17:30)
[2017-10-03] MEDS: INSULIN ASPART SUPPLEMENTAL SCALE SQ SCH (18:00)
[2017-10-03] MEDS: ACETAMINOPHEN/HYDROcodone 325 MG/7.5 MG TAB PO PRN (18:06)
[2017-10-03] MEDS: PRAVASTATIN SOD 40 MG TAB PO SCH (21:15)
[2017-10-03] MEDS: DOCUSATE SODIUM 50 MG/SENNA 8.6 MG TAB PO SCH (21:15)
[2017-10-03] MEDS: SODIUM CHLORIDE 0.9% FLUSH 10 ML FLUSH IV FLUSH SCH (21:15)
[2017-10-03] MEDS ORDERED: HYDROmorphone HCL PF 1 MG/ML VIAL IV PUSH PRN (21:30)
[2017-10-03] MEDS ORDERED: MELATONIN 5 MG TAB PO PRN (22:45)
[2017-10-03] MEDS: HYDROmorphone HCL PF 2 MG/ML VIAL IV PUSH PRN (22:50)
[2017-10-04] VITALS (10 sets, daily range): BP systolic 110–187; BP diastolic 60–65; PULSE 53–118; RESP 16–24; TEMP 97.8–98.4; O2SAT 94–98
[2017-10-04] MEDS: ENALAPRILAT 1.25 MG/ML VIAL IV PUSH PRN (00:15)
[2017-10-04] MEDS: SODIUM CHLOR 0.9% 1000 ML INJ 1,000 ML IV SCH ×3 (02:26→17:23)
[2017-10-04] MEDS: ACETAMINOPHEN/HYDROcodone 325 MG/7.5 MG TAB PO PRN ×3 (02:27→22:27)
[2017-10-04] MEDS: niCARdipine INJ 25 MG in SODIUM CHLOR 0.9% 250 ML INJ 240 ML IV PRN ×2 (02:27→05:15)
[2017-10-04] MEDS: ALPRAZolam 0.25 MG TAB PO PRN ×2 (05:53→22:27)
[2017-10-04] MEDS: LEVOTHYROXINE SODIUM 150 MCG TAB PO SCH (05:53)
[2017-10-04] MEDS: INSULIN ASPART SUPPLEMENTAL SCALE SQ SCH ×4 (06:00→17:02)
[2017-10-04] MEDS: RESP: ALBUTEROL 2.5 MG/IPRATROPIUM 0.5 MG NEB (SCH) INH ×3 (07:54→19:38)
[2017-10-04] MEDS: EZETIMIBE 10 MG TAB PO SCH (09:00)
[2017-10-04] MEDS: SODIUM CHLORIDE 0.9% FLUSH 10 ML FLUSH IV FLUSH SCH ×2 (09:00→22:34)
[2017-10-04] MEDS ORDERED: FELODIPINE 10 MG PO SCH (09:00)
--- NOTE | 2017-10-04 09:14 | HHI.PR ---
Review/Management Diagnosis/Plan: (1) Acute lacunar stroke ICD Codes: I63.9 - Cerebral infarction, unspecified Status: Acute Plan: s/p iv tpa symptoms resolved. nihss 0 mri brain negative. probable tia vs resolved infarct with tpa mra brain/carotids nml; short segment rt ica 30% stenosis recs neuro stable f/u ct brain today-if negative for ich, start plavix 75mg qdaily check eeg bp <180/100 p.t./s.t. 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 (2) Back pain, chronic ICD Codes: M54.9 - Dorsalgia, unspecified; G89.29 - Other chronic pain Status: Chronic Plan: chronic problem pain control (3) DM polyneuropathies ICD Codes: E11.42 - Type 2 diabetes mellitus with diabetic polyneuropathy Status: Chronic Plan: painful neuropathy (4) Essential hypertension ICD Codes: I10 - Essential (primary) hypertension Status: Chronic Plan: keep <180/100 future goal <120/80 (5) Hyperlipidemia ICD Codes: E78.5 - Hyperlipidemia, unspecified Status: Chronic Subjective Subjective Comments No acute events reported No headache No chest pain No dyspnea Active Medications Current Medications Medications (Trade) Dose Ordered Sig/Amador Route Start Time Stop Time Status Last Admin Miscellaneous Information No Heparin, Warfarin, Aspir... UNSCH PRN XX 10/03/17 10:45 10/04/17 10:44 Sodium Chloride 1,000 ml @ 84 mls/hr [id number] IV 10/03/17 12:48 10/04/17 02:26 (NS Flush) 2 ml UNSCH PRN IV FLUSH 10/03/17 13:00 (NS Flush) 2 ml BID IV FLUSH 10/03/17 21:00 10/03/17 21:15 (Tylenol) 650 mg Q6H PRN PO 10/03/17 13:00 (Protonix Inj) 40 mg DAILY IV PUSH 10/04/17 09:00 (Zofran Inj) 4 mg Q6H PRN IV PUSH 10/03/17 13:00 10/04/17 00:15 (Duoneb Neb) 1 ampule Q6HR NEB INH 10/03/17 16:00 10/04/17 07:54 (Albuterol Neb) 2.5 mg Q2HR NEB PRN INH 10/03/17 13:00 Miscellaneous Information 1 Q361D XX 10/03/17 13:00 (Rani-Colace) 1 tab BID PO 10/03/17 21:00 10/03/17 21:15 (Milk Of Magnesia Liq) 30 ml Q12H PRN PO 10/03/17 13:00 (Senokot) 17.2 mg Q12H PRN PO 10/03/17 13:00 (Dulcolax Supp) 10 mg DAILY PRN RECTAL 10/03/17 13:00 (Lactulose Liq) 30 ml DAILY PRN PO 10/03/17 13:00 (Vasotec Inj) 1.25 mg Q4H PRN IV PUSH 10/03/17 15:00 10/04/17 00:15 (Trandate Inj) 10 mg Q2H PRN IV PUSH 10/03/17 15:00 Nicardipine HCl 25 mg/Sodium Chloride 250 ml @ 50 mls/hr TITRATE PRN IV 10/03/17 15:00 10/04/17 05:15 (Pravachol) 40 mg HS PO 10/03/17 21:00 10/03/17 21:15 (D50w (Vial) Inj) 50 ml UNSCH PRN IV PUSH 10/03/17 13:45 (Glucagon Inj) 1 mg UNSCH PRN OTHER 10/03/17 13:45 (NovoLOG SUPPLEMENTAL SCALE) 1 Q6HR SQ 10/03/17 18:00 (Symbicort 160-4.5 Mcg Inh) 2 puff DAILY INH 10/04/17 09:00 (CeleXA) 40 mg DAILY PO 10/04/17 09:00 (Vitamin B12) 500 mcg DAILY PO 10/04/17 09:00 (Zetia) 10 mg DAILY PO 10/04/17 09:00 (Apresoline) 10 mg DAILY PO 10/04/17 09:00 (Imdur) 30 mg DAILY PO 10/04/17 09:00 (Synthroid) 150 mcg DAILY@0600 PO 10/04/17 06:00 10/04/17 05:53 (Toprol Xl) 50 mg DAILY PO 10/04/17 09:00 ([place] 7.5-325 Mg) 1 tab Q6H PRN PO 10/03/17 16:30 4/4/18 02:27 (Xanax) 0.25 mg Q6H PRN PO 10/03/17 16:30 10/04/17 05:53 (Pill Splitter) 1 ea UNSCH PRN OTHER 10/03/17 17:30 (Norvasc) 10 mg DAILY PO 10/04/17 09:00 (Dilaudid Pf Inj) 1 mg Q4H PRN IV PUSH 10/03/17 21:30 10/03/17 22:50 (Melatonin) 5 mg HS PRN PO 10/03/17 22:45 Allergies Allergies Coded Allergies Fish Containing Products (Verified Allergy, Severe, HIVES, 10/03/17) Sulfa (Sulfonamide Antibiotics) (Verified Allergy, Severe, STOPS BREATHING, "SULFA POISONING", 10/03/17) egg (Verified Allergy, Severe, DYSPNEA, SWELLING, 10/03/17) erythromycin base (Verified Allergy, Severe, HIVES, TROUBLE BREATHING, 10/03/17) iodine (Verified Allergy, Severe, SWELLING, 10/03/17) mold (Verified Allergy, Severe, ITCHING, 10/03/17) penicillin G (Verified Allergy, Severe, STOPS BREATHING, 10/03/17) potassium iodide (Verified Allergy, Severe, SWELLING, 10/03/17) povidone-iodine (Verified Allergy, Severe, SWELLING, 10/03/17) sodium iodide (Verified Allergy, Severe, SWELLING, 10/03/17) sodium iodide (Verified Allergy, Severe, SWELLING, 10/03/17) metformin (Verified Adverse Reaction, Severe, DIARRHEA, GASTRIC CRAMPING, ) morphine (Verified Adverse Reaction, Unknown, STATES MAKES HER "TOO SLEEPY" - REFUSES, 10/03/17) Uncoded Allergies MERCURY ( Allergy, Severe, 09/10/16) Review of Systems All other ROS: ROS reviewed as documented in chart Exam I&O / VS Vital Signs Date Time Temp Pulse Resp B/P (MAP) Pulse Ox O2 Delivery O2 Flow Rate FiO2 10/04/17 07:53 98 Nasal Cannula 3.00 10/04/17 07:00 99 Nasal Cannula 2.00 10/04/17 06:00 82 10/04/17 05:15 72 159/68 10/04/17 04:00 70 10/04/17 04:00 98.4 70 24 139/63 (88) 94 10/04/17 02:27 75 210/81 10/04/17 02:00 73 10/04/17 00:00 55 10/04/17 00:00 97.8 53 24 187/60 (102) 96 10/03/17 23:00 60 10/03/17 22:00 59 10/03/17 20:00 64 10/03/17 20:00 98.1 64 19 164/71 (102) 96 10/03/17 19:00 99 Nasal Cannula 2.00 10/03/17 17:44 98.0 67 16 158/77 (104) 97 10/03/17 16:00 98.2 60 16 140/58 (85) 98 10/03/17 15:20 97.8 63 16 132/61 (84) 97 10/03/17 14:00 98.0 63 17 137/60 (85) 97 Room Air 10/03/17 12:33 96 Nasal Cannula 2.00 10/03/17 12:00 16 10/03/17 10:46 86 18 180/74 (109) 97 Room Air 10/03/17 10:23 17 97 Room Air 10/03/17 10:23 97 Room Air 10/03/17 10:10 67 17 97 Room Air 10/03/17 10:05 98.5 89 17 177/79 (111) 96 General: Alert and Oriented, No acute distress Eye: EOMI Respiratory: Non-labored respirations Musculoskeletal: ROM Neurologic: Alert, Oriented, CN II-XII intact, Normal DTR's Psychiatric: Cooperative, Appropriate mood & affect, Normal judgement Exam Comments alert, ox 3, follows, occasional stutter, able to conversates, eomi, vff, face sym, don to gravity, ue postural/kinetic tremors, le stocking distribution reduced pin, no clonus, planterflexor, Objective Micro and Labs Laboratory Tests Test 10/03/17 10:20 10/03/17 11:29 10/03/17 17:00 White Blood Count 11.4 Red Blood Count 4.72 Hemoglobin 13.0 Bedside Hemoglobin 13.6 Hematocrit 39.5 Bedside Hematocrit 40.0 Mean Corpuscular Volume 83.8 Mean Corpuscular Hemoglobin 27.5 Mean Corpuscular Hemoglobin Concent 32.8 Red Cell Distribution Width 15.4 Platelet Count 445 Mean Platelet Volume 7.8 Neutrophils (%) (Auto) 64.0 Lymphocytes (%) (Auto) 21.3 Monocytes (%) (Auto) 12.0 Eosinophils (%) (Auto) 1.5 Basophils (%) (Auto) 1.2 Neutrophils # (Auto) 7.3 Lymphocytes # (Auto) 2.4 Monocytes # (Auto) 1.4 Eosinophils # (Auto) 0.2 Basophils # (Auto) 0.1 CBC Comment DIFF FINAL Differential Comment Prothrombin Time 9.8 Prothromb Time International Ratio 1.0 Activated Partial Thromboplast Time 22.6 Fibrinogen 375 Bedside Sodium 136 Bedside Potassium 4.3 Bedside Chloride 101 Bedside Blood Urea Nitrogen 16 Bedside Creatinine 0.7 Bedside Glucose 150 Total Creatine Kinase 87 Troponin I LESS THAN 0.02 Urine Color YELLOW Urine Turbidity CLEAR Urine pH 7.0 Urine Specific [place] 1.014 Urine Protein NEG Urine Glucose (UA) NEG Urine Ketones NEG Urine Occult Blood NEG Urine Nitrite NEG Urine Bilirubin NEG Urine Urobilinogen LESS THAN 2.0 Urine Leukocyte Esterase LARGE Urine RBC LESS THAN 1 Urine WBC 1 Urine Squamous Epithelial Cells 3 Urine Transitional Epithelial Cells <1 Urine Opiates Screen NEG Urine Barbiturates Screen NEG Urine Amphetamines Screen NEG Urine Benzodiazepines Screen NEG Urine Cocaine Screen NEG Urine Cannabinoids Screen NEG Nasal Screen MRSA (PCR) MRSA NOT DETECTED Problem Qualifiers (1) Back pain, chronic: (2) Hyperlipidemia: Qualified Codes: E78.5 - Hyperlipidemia, unspecified Juventino Rodriguez MD Oct 04, 2017 09:14
[2017-10-04] MEDS: BUDESONIDE-FORMOTEROL 160/4.5 MCG INHALER INH SCH (09:40)
[2017-10-04] MEDS: CYANOCOBALAMIN 1,000 MCG TAB PO SCH (09:40)
[2017-10-04] MEDS: PANTOPRAZOLE SODIUM 40 MG VIAL IV PUSH SCH (09:40)
[2017-10-04] MEDS: DOCUSATE SODIUM 50 MG/SENNA 8.6 MG TAB PO SCH ×2 (09:40→22:27)
[2017-10-04] MEDS: METOPROLOL SUCCINATE 50 MG EXTENDED RELEASE TAB PO SCH (09:40)
[2017-10-04] MEDS: HYDROmorphone HCL PF 2 MG/ML VIAL IV PUSH PRN (09:40)
[2017-10-04] MEDS: ISOSORBIDE MONONITRATE 30 MG CR TAB (IMDUR) PO SCH (09:41)
[2017-10-04] MEDS: hydrALAZINE HCL 10 MG TAB PO SCH (09:41)
[2017-10-04] MEDS: CITALOPRAM HYDROBROMIDE 40 MG TAB PO SCH (09:41)
--- NOTE | 2017-10-04 11:08 | HHI.CCPN ---
Subjective Remarks/Hospital Course Hospital Course: This is a 76-year-old female. Date of admission 10/03/2017. Past medical history includes hypertension, dyslipidemia, reactive airway disease, depression/anxiety, osteoarthritis/rheumatoid arthritis, hypothyroidism, peripheral vascular diseaseP. She presents to [facility] today with a chief complaint of difficulty speaking.. According to her , no acute findings the same. Patient woke up and had breakfast for her routine with her . He says he left to go to the bank and when he got back within an hour , she is unable to speak to him. He says it started approximately 45 minutes prior to arrival. He says that she was in her normal state of health prior to this episode and had no complaints this morning. She is awake and alert, but having difficulty finding words, so history is limited from the patient. NIH score 3 for dysarthria/aphasia CT brain revealed no acute intracranial findings. Some periventricular white matter changes. Discussed with neurology recommended alteplase. Patient received the 9 mg bolus followed by 81 mg over an hour. Follow-up MRI of the brain revealed an empty sella and some periventricular white matter changes and otherwise unremarkable. MRI brain revealed no acute intracranial findings. MRI neck revealed right proximal internal carotid stenosis not flow limiting. Subjective: 10/04: NIHSS 0 today. back to neurologic baseline. does state that she was recently at [facility] with a "mini heart attack" a week or two ago and has a [facility] planned for 10/11. denies other complaints. tolerating diet. CT brain planned for today to eval for hemorrhagic conversion. Objective Vital Signs Date Time Temp Pulse Resp B/P (MAP) Pulse Ox O2 Delivery O2 Flow Rate FiO2 10/04/17 08:00 98.2 70 20 143/61 (88) 94 10/04/17 07:53 Nasal Cannula 3.00 Intake and Output 10/04/17 10/04/17 10/05/17 08:00 16:00 00:00 Intake Total 1270 ml 0 ml Output Total 198 ml Balance 1072 ml 0 ml Result Diagram: 10/03/17 1020 Imaging Last Impressions Neck Magnetic Resonance Angiography 10/03/17 0000 Signed Impressions: Service Date/Time: Tuesday, October 03, 2017 12:52 - CONCLUSION: Short segment, non-hemodynamic stenosis of the proximal right internal carotid artery. Otherwise within normal limits. Dre Chris MD Head Magnetic Resonance Angiography 10/03/17 Signed Impressions: Service Date/Time: Tuesday, October 03, 2017 12:52 - CONCLUSION: Intracranial arteries are within normal limits. Dre Chris MD Head CT 10/03/17 Signed Impressions: Service Date/Time: Tuesday, October 03, 2017 10:35 - CONCLUSION: No acute intracranial abnormality demonstrated. Worsening chronic sinus disease. Dre Chris MD Brain MRI 10/03/17 Signed Impressions: Service Date/Time: Tuesday, October 03, 2017 12:52 - CONCLUSION: 1. No bleed, acute infarct or other acute intracranial abnormality. 2. Mild, chronic periventricular white matter changes. 3. Incidentally seen empty sella. 4. Chronic-appearing sinus disease. Dre Chris MD Objective Remarks GENERAL: 76-year-old female currently resting in bed in no acute distress SKIN: Warm and dry. HEAD: Atraumatic. Normocephalic. EYES: Pupils equal and round. No scleral icterus. No injection or drainage. ENT: No nasal bleeding or discharge. Mucous membranes pink and moist. NECK: Trachea midline. No JVD. CARDIOVASCULAR: Regular rate and rhythm. RESPIRATORY: No accessory muscle use. Clear to auscultation. Breath sounds equal bilaterally. GASTROINTESTINAL: Abdomen soft, non-tender, nondistended. Hepatic and splenic margins not palpable. MUSCULOSKELETAL: Extremities with trace bilateral lower extremity edema. No obvious deformities. NEUROLOGICAL: Awake and alert. aphasia has resolved. no evidence of dysarthria. OZ 5/5 all extremities. no focal deficits. A/P Assessment and Plan Assessment: 76yF presented with deficits and now s/p TPA. clinically improved. will transfer to floor for remainder of stroke work-up. consult hospitalists. Neuro/Psych: CVA -symptomatology expressive aphasia and dysarthria Depression/anxiety Lumbar stenosis Chronic benzodiazepine use Chronic opiate use CT brain revealed no acute intracranial findings. MRI brain revealed periventricular white matter changes. Empty sella. MRA brain no acute findings MRA neck revealed right proximal internal carotid stenosis not flow-limiting Received alteplase 9 mg bolus followed by 81 mg over 1 hour Keep systolic blood pressure less than 180/diastolic pressure less than 105 Was supposed to see physician for JASWINDER 10/04. Currently on hold. PT/OT/ST evaluate and treat when appropriate Currently holding alprazolam 0.25 mg p.o. every 6 hours as needed anxiety Holding citalopram 40 mg p.o. daily. Resume clinically indicated Holding hydrocodone/acetaminophen 7.5/325 1 tablet every 6 hours as needed Follow-up with Dr. Rodriguez/neurology Repeat head CT 24 hours post alteplase CV: Essential hypertension Coronary artery disease status post PCI Dyslipidemia Goal keep systolic blood pressure less than 180, diastolic blood pressure was 105 Echocardiogram 12/17 revealed EF 60-65%. No regional wall motion abnormality. Home medications include felodipine 10 mg daily, metoprolol succinate 50 mg p.o. daily, isosorbide mononitrate 30 mg per day, hydralazine 10 mg p.o. daily and quinapril 40 mg twice daily for hypertension Labetalol, enalaprilat and nicardipine drip goal keep systolic blood pressure less than 180 status post alteplase Resume ezetimibe 10 mg p.o. daily 2D echo ordered Holding aspirin 325 mg daily 24 hours post alteplase Resp: Reactive airway disease Nasal cannula per CVA protocol Incentive spirometry while awake Currently on albuterol/ipratropium aerosols every 6 hours with albuterol aerosols every 2 hours as needed as needed for dyspnea Resume budesonide/formoterol 160/4.52 puffs daily GI: History of abdominal abscess Gastroesophageal reflux disease/peptic ulcer disease Patient is currently n.p.o. Pantoprazole for GI prophylaxis Docusate sodium/senna 1 tablet twice daily for bowel regimen : no indication for sanders catheter. Endo: Diabetes mellitus Hyperglycemia Hypothyroidism Patient is on insulin glargine 65 units twice daily with insulin lispro sliding scale insulin at home Patient is on levothyroxine 150 mcg daily at home for hypothyroidism. Resume clinically indicated Currently on Novulin R medium sized with Accu-Cheks every 6 hours to maintain euglycemia Check hemoglobin A1c and TSH Renal: Creatinine currently within normal limits Monitor urine output Accurate I's and O's Heme: Leukocytosis Monitor CBC daily. Follow trends ID: Monitor for infection MSK: Osteoarthritis/rheumatoid arthritis Elevated BMI greater than 40 PT/OT evaluate and treat Weight loss encouraged FEN: Hyponatremia Currently normal saline 84 cc an hour. Replace electrolytes as clinically indicated Access- Utilize peripheral IV. Central line if indicated Prophylaxis -GI -pantoprazole -DVT -SCD/holding pharmacological prophylaxis 24 hours post alteplase. Jim Gordon MD Oct 04, 2017 11:08
--- NOTE | 2017-10-04 13:28 | EKG ---
Date Performed: 10/03/2017 Time Performed: 10:15:05 PTAGE: 76 years EKG: Sinus rhythm NONSPECIFIC T-WAVE ABNORMALITY BORDERLINE ECG NO PREVIOUS TRACING DOCTOR: Kurt Manzo Interpretating Date/Time 10/04/2017 13:26:34
--- NOTE | 2017-10-04 14:48 | RADRPT ---
EXAM DATE/TIME: 10/04/2017 14:19 [place] COMPARISON: MRI BRAIN W & W/O CONTRAST, October 03, 2017, 12:52. CT BRAIN W/O CONTRAST, October 03, 2017, 10:35. INDICATIONS : Post TPA RADIATION DOSE: 35.89 CTDIvol (mGy) MEDICAL HISTORY : Unobtainable SURGICAL HISTORY : Unobtainable ENCOUNTER: Initial ACUITY: 2 days PAIN SCALE: 5/10 LOCATION: cranial TECHNIQUE: Multiple contiguous axial images were obtained of the head. Using automated exposure control and adj ustment of the mA and/or kV according to patient size, radiation dose was kept as low as reasonably a chievable to obtain optimal diagnostic quality images. DICOM format image data is available electro nically for review and comparison. FINDINGS: CEREBRUM: The ventricles are normal for age. No evidence of midline shift, mass lesion, hemorrhage or acute in farction. No extra-axial fluid collections are seen. POSTERIOR FOSSA: The cerebellum and brainstem are intact. The 4th ventricle is midline. The cerebellopontine angle i s unremarkable. EXTRACRANIAL: Opacified bilateral maxillary sinuses. The visualized portion of the orbits is intact. SKULL: The calvaria is intact. No evidence of skull fracture. CONCLUSION: 1. No acute findings in the brain. No evidence of acute blood products. 2. Chronic bilateral maxillary sinus opacification. John Chisholm MD on October 04, 2017 at 14:44 Board Certified Radiologist. This report was verified electronically.
[2017-10-04 18:39] LABS: ALBUMIN 2.7 GM/DL (3.4-5.0); AST (GOT) 19 U/L (15-37); BICARBONATE 26.4 MEQ/L (21.0-32.0); BLOOD UREA NITROGEN 15 MG/DL (7-18); CALCIUM 7.6 MG/DL (8.5-10.1); CHLORIDE 105 MEQ/L (98-107); GLUCOSE,RANDOM 169 MG/DL (74-106); MAGNESIUM 1.8 MG/DL (1.5-2.5); SODIUM (NA) 139 MEQ/L (136-145)
[2017-10-04 18:48] LABS: ALKALINE PHOSPHATASE 74 U/L (45-117); ALT (GPT) 20 U/L (10-53); CHOLESTEROL 165 MG/DL (120-200); CHOLESTEROL/ HDL RATIO 3.63 RATIO; CREATININE 0.99 MG/DL (0.50-1.00); GLOMERULAR FILTRATION RATE 55 ML/MIN (>89); HDL CHOLESTEROL 45.4 MG/DL (40.0-60.0); LDL CHOLESTEROL 96 MG/DL (0-99); PHOSPHORUS 2.9 MG/DL (2.5-4.9); TOTAL BILIRUBIN ADULT 0.4 MG/DL (0.2-1.0); TOTAL PROTEIN 6.5 GM/DL (6.4-8.2); TRIGLYCERIDES 118 MG/DL (42-150)
[2017-10-04] MEDS: PRAVASTATIN SOD 40 MG TAB PO SCH (21:00)
--- NOTE | 2017-10-04 21:30 | MG ---
cc: Nicolas Harmon MD, David J MD EEG NUMBER: [id number] INDICATIONS: Hypothyroidism, ulcer, panic attacks. MEDICATIONS: Dilaudid, Norvasc. INTERPRETATION: A lot of bifrontal muscle activity is noted. A 10 Hz, 60 microvolt symmetric posterior rhythm is seen. I do not see any epileptiform or seizure activity. Occasional diffuse theta slowing is noted. The recording overall is synchronous and symmetric. Photic stimulation is performed without significant posterior driving. IMPRESSION: A normal electroencephalogram. No evidence for a focal or diffuse abnormality. Nicolas Funez. MD EDIN Harmon//rodrigo , 08:38 PM , 09:03 PM
[2017-10-04 21:35] LABS: AUTOMATED NEUTROPHIL # 8.1 TH/MM3 (1.8-7.7); BASOPHIL # 0.1 TH/MM3 (0-0.2); BASOPHIL % 0.8 % (0.0-2.0); EOSINOPHIL # 0.3 TH/MM3 (0-0.4); EOSINOPHIL % 2.9 % (0.0-4.0); HEMATOCRIT 34.2 % (35.0-46.0); LYMPH % 15.5 % (9.0-44.0); LYMPHOCYTE # 1.8 TH/MM3 (1.0-4.8); MEAN CELL VOLUME 84.7 FL (80.0-100.0); MEAN CORPUSCULAR HEMOGLOBIN 27.2 PG (27.0-34.0); MEAN CORPUSCULAR HGB CONC 32.1 % (32.0-36.0); MEAN PLATELET VOLUME 7.9 FL (7.0-11.0); MONOCYTE # 1.4 TH/MM3 (0-0.9); NEUT % 68.8 % (16.0-70.0); PLATELET COUNT 408 TH/MM3 (150-450); RED BLOOD COUNT 4.04 MIL/MM3 (4.00-5.30); RED CELL DISTRIBUTION WIDTH 15.5 % (11.6-17.2); WHITE BLOOD COUNT 11.8 TH/MM3 (4.0-11.0)
[2017-10-04 22:39] LABS: HEMOGLOBIN A1C 9.2 % (4.3-6.0)
[2017-10-05] VITALS: BP 137/64; PULSE 80; RESP 20; TEMP 97.7; O2SAT 98
[2017-10-05] MEDS: RESP: ALBUTEROL 2.5 MG/IPRATROPIUM 0.5 MG NEB (SCH) INH ×2 (03:05→09:03)
[2017-10-05 04:00] VITALS: BP 189/74; PULSE 66; RESP 20; TEMP 97.7; O2SAT 97
[2017-10-05] MEDS: LEVOTHYROXINE SODIUM 150 MCG TAB PO SCH (05:06)
[2017-10-05] MEDS: ACETAMINOPHEN/HYDROcodone 325 MG/7.5 MG TAB PO PRN ×2 (05:06→11:52)
[2017-10-05] MEDS: ALPRAZolam 0.25 MG TAB PO PRN (05:13)
[2017-10-05] MEDS: INSULIN ASPART SUPPLEMENTAL SCALE SQ SCH ×3 (05:17→11:55)
[2017-10-05] MEDS: ENALAPRILAT 1.25 MG/ML VIAL IV PUSH PRN (05:30)
--- NOTE | 2017-10-05 05:54 | PD.PN.STU ---
Subjective Remarks Follow up for TIA versus CVA. Patient reports she is doing well. Denies fever , chills, nausea, Objective Vitals Vital Signs Date Time Temp Pulse Resp B/P (MAP) Pulse Ox O2 Delivery O2 Flow Rate FiO2 10/04/17 21:00 96 Nasal Cannula 2.00 10/04/17 20:00 98.4 118 20 156/65 (95) 95 10/04/17 19:38 96 Nasal Cannula 3.00 10/04/17 16:00 97.9 60 16 110/63 (79) 97 10/04/17 12:00 98.0 60 16 140/64 (89) 94 10/04/17 12:00 97.9 60 16 10/04/17 08:00 98.2 70 20 143/61 (88) 94 10/04/17 07:53 98 Nasal Cannula 3.00 10/04/17 07:00 99 Nasal Cannula 2.00 10/04/17 06:00 82 I/O 10/04/17 10/04/17 10/04/17 10/05/17 10/05/17 10/05/17 07:00 15:00 23:00 07:00 15:00 23:00 Intake Total 1290 ml 0 ml 360 ml Output Total 231 ml 700 ml Balance 1059 ml 0 ml -340 ml Intake Oral 40 ml 0 ml 360 ml IV Total 1250 ml Output Urine Total 231 ml 700 ml Stool Total 0 ml 0 ml # Voids 1 2 Result Diagram: 10/04/17202510/04/17 1722 A/P Assessment and Plan Markel Haji M3 Oct 05, 2017 05:54 Parul De La Torre MD Oct 05, 2017 15:22
[2017-10-05 08:00] VITALS: PULSE 68
[2017-10-05 08:30] VITALS: BP 124/67; PULSE 57; RESP 18; TEMP 98.6; O2SAT 94
--- NOTE | 2017-10-05 09:27 | HHI.PR ---
Review/Management Diagnosis/Plan: (1) Acute lacunar stroke ICD Codes: I63.9 - Cerebral infarction, unspecified Status: Acute Plan: s/p iv tpa symptoms resolved. nihss 0 mri brain negative. probable tia vs resolved infarct with tpa mra brain/carotids nml; short segment rt ica 30% stenosis recs doing well d/c planning today plavix/statin. s/b d/w pt wt loss/exercise/bp/lipid/dm control outpatient f/u with us, card given f/u with cardio for event monitor (2) Back pain, chronic ICD Codes: M54.9 - Dorsalgia, unspecified; G89.29 - Other chronic pain Status: Chronic Plan: chronic problem pain control (3) DM polyneuropathies ICD Codes: E11.42 - Type 2 diabetes mellitus with diabetic polyneuropathy Status: Chronic Plan: painful neuropathy (4) Essential hypertension ICD Codes: I10 - Essential (primary) hypertension Status: Chronic Plan: keep <180/100 future goal <120/80 (5) Hyperlipidemia ICD Codes: E78.5 - Hyperlipidemia, unspecified Status: Chronic (6) Essential tremor ICD Codes: G25.0 - Essential tremor Status: Chronic Plan: outpatient eval/tx Subjective Subjective Comments No acute events reported No headache No chest pain No dyspnea Active Medications Current Medications Medications (Trade) Dose Ordered Sig/Amador Route Start Time Stop Time Status Last Admin Sodium Chloride 1,000 ml @ 84 mls/hr [id number] IV 10/03/17 12:48 10/04/17 17:23 (NS Flush) 2 ml UNSCH PRN IV FLUSH 10/03/17 13:00 (NS Flush) 2 ml BID IV FLUSH 10/03/17 21:00 10/04/17 22:34 (Tylenol) 650 mg Q6H PRN PO 10/03/17 13:00 (Protonix Inj) 40 mg DAILY IV PUSH 10/04/17 09:00 10/04/17 09:40 (Zofran Inj) 4 mg Q6H PRN IV PUSH 10/03/17 13:00 10/04/17 00:15 (Duoneb Neb) 1 ampule Q6HR NEB INH 10/03/17 16:00 10/04/17 07:54 (Albuterol Neb) 2.5 mg Q2HR NEB PRN INH 10/03/17 13:00 Miscellaneous Information 1 Q361D XX 10/03/17 13:00 (Rani-Colace) 1 tab BID PO 10/03/17 21:00 10/04/17 22:27 (Milk Of Magnesia Liq) 30 ml Q12H PRN PO 10/03/17 13:00 (Senokot) 17.2 mg Q12H PRN PO 10/03/17 13:00 (Dulcolax Supp) 10 mg DAILY PRN RECTAL 10/03/17 13:00 (Lactulose Liq) 30 ml DAILY PRN PO 10/03/17 13:00 (Vasotec Inj) 1.25 mg Q4H PRN IV PUSH 10/03/17 15:00 10/05/17 05:30 (Trandate Inj) 10 mg Q2H PRN IV PUSH 10/03/17 15:00 Nicardipine HCl 25 mg/Sodium Chloride 250 ml @ 50 mls/hr TITRATE PRN IV 10/03/17 15:00 10/04/17 05:15 (Pravachol) 40 mg HS PO 10/03/17 21:00 10/03/17 21:15 (D50w (Vial) Inj) 50 ml UNSCH PRN IV PUSH 10/03/17 13:45 (Glucagon Inj) 1 mg UNSCH PRN OTHER 10/03/17 13:45 (NovoLOG SUPPLEMENTAL SCALE) 1 Q6HR SQ 10/03/17 18:00 10/04/17 17:02 (Symbicort 160-4.5 Mcg Inh) 2 puff DAILY INH 10/04/17 09:00 10/04/17 09:40 (CeleXA) 40 mg DAILY PO 10/04/17 09:00 10/04/17 09:41 (Vitamin B12) 500 mcg DAILY PO 10/04/17 09:00 10/04/17 09:40 (Zetia) 10 mg DAILY PO 10/04/17 09:00 10/04/17 09:00 (Apresoline) 10 mg DAILY PO 10/04/17 09:00 10/04/17 09:41 (Imdur) 30 mg DAILY PO 10/04/17 09:00 10/04/17 09:41 (Synthroid) 150 mcg DAILY@0600 PO 10/04/17 06:00 10/05/17 05:06 (Toprol Xl) 50 mg DAILY PO 10/04/17 09:00 10/04/17 09:40 ([place] 7.5-325 Mg) 1 tab Q6H PRN PO 10/03/17 16:30 10/05/17 05:06 (Xanax) 0.25 mg Q6H PRN PO 10/03/17 16:30 10/05/17 05:13 (Pill Splitter) 1 ea UNSCH PRN OTHER 10/03/17 17:30 (Norvasc) 10 mg DAILY PO 10/04/17 09:00 10/04/17 09:40 (Dilaudid Pf Inj) 1 mg Q4H PRN IV PUSH 10/03/17 21:30 10/04/17 09:40 (Melatonin) 5 mg HS PRN PO 10/03/17 22:45 Allergies Allergies Coded Allergies Fish Containing Products (Verified Allergy, Severe, HIVES, 10/03/17) Sulfa (Sulfonamide Antibiotics) (Verified Allergy, Severe, STOPS BREATHING, "SULFA POISONING", 10/03/17) egg (Verified Allergy, Severe, DYSPNEA, SWELLING, 10/03/17) erythromycin base (Verified Allergy, Severe, HIVES, TROUBLE BREATHING, 10/03/17) iodine (Verified Allergy, Severe, SWELLING, 10/03/17) mold (Verified Allergy, Severe, ITCHING, 10/03/17) penicillin G (Verified Allergy, Severe, STOPS BREATHING, 10/03/17) potassium iodide (Verified Allergy, Severe, SWELLING, 10/03/17) povidone-iodine (Verified Allergy, Severe, SWELLING, 10/03/17) sodium iodide (Verified Allergy, Severe, SWELLING, 10/03/17) sodium iodide (Verified Allergy, Severe, SWELLING, 10/03/17) metformin (Verified Adverse Reaction, Severe, DIARRHEA, GASTRIC CRAMPING, ) morphine (Verified Adverse Reaction, Unknown, STATES MAKES HER "TOO SLEEPY" - REFUSES, 10/03/17) Uncoded Allergies MERCURY ( Allergy, Severe, 09/10/16) Review of Systems All other ROS: ROS reviewed as documented in chart Exam I&O / VS Vital Signs Date Time Temp Pulse Resp B/P (MAP) Pulse Ox O2 Delivery O2 Flow Rate FiO2 10/05/17 08:30 98.6 57 18 124/67 (86) 94 10/05/17 04:00 97.7 66 20 189/74 (112) 97 10/05/17 00:00 97.7 80 20 137/64 (88) 98 10/04/17 21:00 96 Nasal Cannula 2.00 10/04/17 20:00 98.4 118 20 156/65 (95) 95 10/04/17 19:38 96 Nasal Cannula 3.00 10/04/17 16:00 97.9 60 16 110/63 (79) 97 10/04/17 12:00 98.0 60 16 140/64 (89) 94 10/04/17 12:00 97.9 60 16 General: Alert and Oriented, No acute distress Eye: EOMI Respiratory: Non-labored respirations Musculoskeletal: ROM Neurologic: Alert, Oriented, CN II-XII intact, Normal DTR's Psychiatric: Cooperative, Appropriate mood & affect, Normal judgement Exam Comments alert, ox 3, follows, speech clear, anxious, able to conversates, eomi, vff, face sym, don to gravity, ue postural/kinetic tremors, le stocking distribution reduced pin, no clonus, planterflexor, Objective Micro and Labs Laboratory Tests Test 10/04/17 17:22 10/04/17 20:26 Blood Urea Nitrogen 15 Creatinine 0.99 Random Glucose 169 Total Protein 6.5 Albumin 2.7 Calcium Level 7.6 Phosphorus Level 2.9 Magnesium Level 1.8 Alkaline Phosphatase 74 Aspartate Amino Transf (AST/SGOT) 19 Alanine Aminotransferase (ALT/SGPT) 20 Total Bilirubin 0.4 Sodium Level 139 Potassium Level 4.5 Chloride Level 105 Carbon Dioxide Level 26.4 Anion Gap 8 Estimat Glomerular Filtration Rate 55 Hemoglobin A1c 9.2 Triglycerides Level 118 Cholesterol Level 165 LDL Cholesterol 96 HDL Cholesterol 45.4 Cholesterol/HDL Ratio 3.63 Thyroid Stimulating Hormone 3rd Gen 1.650 White Blood Count 11.8 Red Blood Count 4.04 Hemoglobin 11.0 Hematocrit 34.2 Mean Corpuscular Volume 84.7 Mean Corpuscular Hemoglobin 27.2 Mean Corpuscular Hemoglobin Concent 32.1 Red Cell Distribution Width 15.5 Platelet Count 408 Mean Platelet Volume 7.9 Neutrophils (%) (Auto) 68.8 Lymphocytes (%) (Auto) 15.5 Monocytes (%) (Auto) 12.0 Eosinophils (%) (Auto) 2.9 Basophils (%) (Auto) 0.8 Neutrophils # (Auto) 8.1 Lymphocytes # (Auto) 1.8 Monocytes # (Auto) 1.4 Eosinophils # (Auto) 0.3 Basophils # (Auto) 0.1 CBC Comment DIFF FINAL Differential Comment Problem Qualifiers (1) Back pain, chronic: (2) Hyperlipidemia: Qualified Codes: E78.5 - Hyperlipidemia, unspecified Juventino Rodriguez MD Oct 05, 2017 09:27
[2017-10-05] MEDS ORDERED: CLOPIDOGREL 75 MG TAB PO SCH (09:30)
[2017-10-05] MEDS: PANTOPRAZOLE SODIUM 40 MG VIAL IV PUSH SCH (09:33)
[2017-10-05] MEDS: CYANOCOBALAMIN 1,000 MCG TAB PO SCH (09:33)
[2017-10-05] MEDS: DOCUSATE SODIUM 50 MG/SENNA 8.6 MG TAB PO SCH (09:34)
[2017-10-05] MEDS: hydrALAZINE HCL 10 MG TAB PO SCH (09:34)
[2017-10-05] MEDS: CITALOPRAM HYDROBROMIDE 40 MG TAB PO SCH (09:34)
[2017-10-05] MEDS: ISOSORBIDE MONONITRATE 30 MG CR TAB (IMDUR) PO SCH (09:34)
[2017-10-05] MEDS: EZETIMIBE 10 MG TAB PO SCH (09:34)
[2017-10-05] MEDS: METOPROLOL SUCCINATE 50 MG EXTENDED RELEASE TAB PO SCH (09:34)
[2017-10-05] MEDS: SODIUM CHLORIDE 0.9% FLUSH 10 ML FLUSH IV FLUSH SCH (09:34)
[2017-10-05] MEDS: BUDESONIDE-FORMOTEROL 160/4.5 MCG INHALER INH SCH (09:35)
[2017-10-05] MEDS ORDERED: PLAV75TA29 PO (11:00)
[2017-10-05] MEDS ORDERED: ATOR40TA16 PO (11:00)
--- NOTE | 2017-10-05 11:00 | HHI.DS ---
Discharge Summary Admission Date Oct 03, 2017 at 12:20 Discharge Date: Oct 05, 2017 Admitting Diagnosis Stroke (1) CVA (cerebral vascular accident) ICD Code: I63.9 - Cerebral infarction, unspecified Diagnosis: Principal Status: Acute (2) Hyperglycemia ICD Code: R73.9 - Hyperglycemia, unspecified Diagnosis: Principal (3) Essential hypertension ICD Code: I10 - Essential (primary) hypertension Diagnosis: Principal Status: Chronic (4) Anxiety ICD Code: F41.9 - Anxiety disorder, unspecified Diagnosis: Principal Status: Acute (5) Insulin dependent diabetes mellitus ICD Code: E11.9 - Type 2 diabetes mellitus without complications; 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 Diagnosis: Principal Status: Chronic (6) Hypothyroidism ICD Code: E03.9 - Hypothyroidism Diagnosis: Principal Status: Chronic (7) Hyperlipidemia ICD Code: E78.5 - Hyperlipidemia, unspecified Diagnosis: Secondary Status: Chronic (8) Leukocytosis ICD Code: D72.829 - Elevated white blood cell count, unspecified Diagnosis: Principal Status: Resolved (9) Hyponatremia ICD Code: E87.1 - Hypo-osmolality and hyponatremia Diagnosis: Secondary Status: Resolved (10) BMI 40.0-44.9, adult ICD Code: Z68.41 - Body mass index (BMI) 40.0-44.9, adult Diagnosis: Principal Procedures Received tPA Brief History - From Admission This is a 76-year-old female. Date of admission 10/03/2017. Past medical history includes hypertension, dyslipidemia, reactive airway disease, depression/anxiety, osteoarthritis/rheumatoid arthritis, hypothyroidism, peripheral vascular diseaseP. She presents to [facility] today with a chief complaint of difficulty speaking.. According to her , no acute findings the same. Patient woke up and had breakfast for her routine with her . He says he left to go to the bank and when he got back within an hour , she is unable to speak to him. He says it started approximately 45 minutes prior to arrival. He says that she was in her normal state of health prior to this episode and had no complaints this morning. She is awake and alert, but having difficulty finding words, so history is limited from the patient. NIH score 3 for dysarthria/aphasia CT brain revealed no acute intracranial findings. Some periventricular white matter changes. Discussed with neurology recommended alteplase. Patient received the 9 mg bolus followed by 81 mg over an hour. Follow-up MRI of the brain revealed an empty sella and some periventricular white matter changes and otherwise unremarkable. MRI brain revealed no acute intracranial findings. MRI neck revealed right proximal internal carotid stenosis not flow limiting. CBC/BMP: 10/04/17202510/04/17 1722 Significant Findings Laboratory Tests Test 10/03/17 10:20 10/03/17 11:29 10/03/17 17:00 10/04/17 17:22 White Blood Count 11.4 TH/MM3 (4.0-11.0) Monocytes (%) (Auto) 12.0 % (0.0-8.0) Monocytes # (Auto) 1.4 TH/MM3 (0-0.9) Activated Partial Thromboplast Time 22.6 SEC (24.3-30.1) Bedside Sodium 136 MMOL/L (137-144) Bedside Chloride 101 MMOL/L (102-111) Bedside Glucose 150 MG/DL (68-110) Troponin I LESS THAN 0.02 NG/ML Urine Leukocyte Esterase LARGE (NEG) Random Glucose 169 MG/DL (74-106) Albumin 2.7 GM/DL (3.4-5.0) Calcium Level 7.6 MG/DL (8.5-10.1) Estimat Glomerular Filtration Rate 55 ML/MIN (>89) Hemoglobin A1c 9.2 % (4.3-6.0) Test 10/04/17 20:26 White Blood Count 11.8 TH/MM3 (4.0-11.0) Hemoglobin 11.0 GM/DL (11.6-15.3) Hematocrit 34.2 % (35.0-46.0) Monocytes (%) (Auto) 12.0 % (0.0-8.0) Neutrophils # (Auto) 8.1 TH/MM3 (1.8-7.7) Monocytes # (Auto) 1.4 TH/MM3 (0-0.9) Imaging Last Impressions Head CT 10/04/17 1400 Signed Impressions: Service Date/Time: WednesOctober 04, 2017 14:19 - CONCLUSION: 1. No acute findings in the brain. No evidence of acute blood products. 2. Chronic bilateral maxillary sinus opacification. John Chisholm MD Neck Magnetic Resonance Angiography 10/03/17 Signed Impressions: Service Date/Time: Tuesday, October 03, 2017 12:52 - CONCLUSION: Short segment, non-hemodynamic stenosis of the proximal right internal carotid artery. Otherwise within normal limits. Dre Chris MD Head Magnetic Resonance Angiography 10/03/17 Signed Impressions: Service Date/Time: Tuesday, October 03, 2017 12:52 - CONCLUSION: Intracranial arteries are within normal limits. Dre Chris MD Brain MRI 10/03/17 Signed Impressions: Service Date/Time: Tuesday, October 03, 2017 12:52 - CONCLUSION: 1. No bleed, acute infarct or other acute intracranial abnormality. 2. Mild, chronic periventricular white matter changes. 3. Incidentally seen empty sella. 4. Chronic-appearing sinus disease. Dre Chris MD PE at Discharge GENERAL: 76-year-old female currently resting in bed in no acute distress CARDIOVASCULAR: Regular rate and rhythm. RESPIRATORY: No accessory muscle use. Clear to auscultation. Breath sounds equal bilaterally. GASTROINTESTINAL: Abdomen soft, non-tender, nondistended. Hepatic and splenic margins not palpable. MUSCULOSKELETAL: Extremities with trace bilateral lower extremity edema. No obvious deformities. NEUROLOGICAL: Awake and alert. aphasia has resolved. no evidence of dysarthria. OZ 5/5 all extremities. no focal deficits. Pt update on day of discharge The patient is in the chair. No new motor or sensory deficit. No nausea or vomiting no diarrhea or constipation. Was ambulating with physical therapy. Physical therapy recommends PT at home. Family also at bedside. Patient feels Comfortable to go home today. Hospital Course 76yF presented with deficits and now s/p TPA. clinically improved. No new motor deficit. Patient was discharged home with home health follow-up with PCP and consultants as outpatient. Cleared by neurology. Neuro/Psych: CVA -symptomatology expressive aphasia and dysarthria Depression/anxiety Lumbar stenosis Chronic benzodiazepine use Chronic opiate use CT brain revealed no acute intracranial findings. MRI brain revealed periventricular white matter changes. Empty sella. MRA brain no acute findings MRA neck revealed right proximal internal carotid stenosis not flow-limiting Received alteplase 9 mg bolus followed by 81 mg over 1 hour Keep systolic blood pressure less than 180/diastolic pressure less than 105 Was supposed to see physician for JASWINDER 10/04. Currently on hold. PT/OT/ST evaluate and treat when appropriate Currently holding alprazolam 0.25 mg p.o. every 6 hours as needed anxiety Holding citalopram 40 mg p.o. daily. Resume clinically indicated Holding hydrocodone/acetaminophen 7.5/325 1 tablet every 6 hours as needed Follow-up with Dr. Rodriguez/neurology Repeat head CT 24 hours post alteplase CV: Essential hypertension Coronary artery disease status post PCI Dyslipidemia Goal keep systolic blood pressure less than 180, diastolic blood pressure was 105 Echocardiogram 12/17 revealed EF 60-65%. No regional wall motion abnormality. Home medications include felodipine 10 mg daily, metoprolol succinate 50 mg p.o. daily, isosorbide mononitrate 30 mg per day, hydralazine 10 mg p.o. daily and quinapril 40 mg twice daily for hypertension Labetalol, enalaprilat and nicardipine drip goal keep systolic blood pressure less than 180 status post alteplase Resume ezetimibe 10 mg p.o. daily 2D echo ordered Holding aspirin 325 mg daily 24 hours post alteplase Resp: Reactive airway disease Nasal cannula per CVA protocol Incentive spirometry while awake Currently on albuterol/ipratropium aerosols every 6 hours with albuterol aerosols every 2 hours as needed as needed for dyspnea Resume budesonide/formoterol 160/4.52 puffs daily GI: History of abdominal abscess Gastroesophageal reflux disease/peptic ulcer disease Patient is currently n.p.o. Pantoprazole for GI prophylaxis Docusate sodium/senna 1 tablet twice daily for bowel regimen : no indication for sanders catheter. Endo: Diabetes mellitus Hyperglycemia Hypothyroidism Patient is on insulin glargine 65 units twice daily with insulin lispro sliding scale insulin at home Patient is on levothyroxine 150 mcg daily at home for hypothyroidism. Resume clinically indicated Currently on Novulin R medium sized with Accu-Cheks every 6 hours to maintain euglycemia Check hemoglobin A1c and TSH Renal: Creatinine currently within normal limits Monitor urine output Accurate I's and O's Heme: Leukocytosis Monitor CBC daily. Follow trends ID: Monitor for infection MSK: Osteoarthritis/rheumatoid arthritis Elevated BMI greater than 40 PT/OT evaluate and treat Weight loss encouraged FEN: Hyponatremia Currently normal saline 84 cc an hour. Replace electrolytes as clinically indicated Access- Utilize peripheral IV. Central line if indicated Prophylaxis -GI -pantoprazole -DVT -SCD/holding pharmacological prophylaxis 24 hours post alteplase. Improved. Discharged home with home health stable condition to follow-up with PCP and consultants as outpatient. Pt Condition on Discharge: Stable Discharge Disposition: Disch w/ Home Health Serv Discharge Time: > 30 minutes Discharge Instructions DIET: Follow Instructions for: Heart Healthy Diet Activities you can perform: Regular-No Restrictions Follow up Referrals: Appointment for Follow Up @ [facility] - 1 Week PCP Follow-up - 2-3 Days PCP Follow-up New Medications: Atorvastatin (Atorvastatin) 40 Mg Tab 40 MG PO HS for Cholesterol Management, #30 TAB Clopidogrel (Plavix) 75 Mg Tab 75 MG PO DAILY for Blood Clot Prevention, #30 TAB Continued Medications: Albuterol 8.5 GM Inh (Proair Hfa 8.5 GM Inh) 90 Mcg/Act Aer 1 PUFF INH Q4H PRN for SHORTNESS OF BREATH, #1 INHALER 0 Refills 108 mcg/actuation Alprazolam (Xanax) 0.25 Mg Tab 0.25 MG PO Q6HR PRN for ANXIETY, #20 TAB Aspirin (Aspirin) 325 Mg Tab 325 MG PO DAILY, #30 TAB 0 Refills Budesonide-Formoterol Inh (Symbicort Inh) 160-4.5 Mcg/Act Aero 2 PUFF INH DAILY, #1 INHALER 0 Refills Citalopram (Citalopram) 40 Mg Tab 40 MG PO DAILY for Control Depression, #30 TAB 0 Refills Cyanocobalamin (Vitamin B-12) 500 Mcg Tab 500 MCG PO DAILY for Nutritional Supplement, #1 BOTTLE 0 Refills Ezetimibe (Zetia) 10 Mg Tab 10 MG PO DAILY, #30 TAB 0 Refills Felodipine ER (Felodipine ER) 10 mg Tree 10 MG PO DAILY for Blood Pressure Management, #30 TAB 0 Refills Hydralazine HCl (Hydralazine HCl) 10 Mg Tablet 10 MG PO DAILY Hydrocodone-Acetaminophen ([place]) 7.5-325 mg Tab 1 TAB PO Q6H PRN for PAIN, TAB 0 Refills Insulin Glargine Inj (Lantus Solostar Pen Inj) 300 Unit/3 Ml Pen 65 UNITS SQ BID for Blood Sugar Management, PEN 0 Refills Insulin Lispro (Human) Inj (Humalog Inj) 1,000 Unit/10 Ml Vial SQ ACHS for Blood Sugar Management, #1 VIAL 0 Refills PER SLIDING SCALE Isosorbide Mononitrate ER (Isosorbide Mononitrate ER) 30 Mg Tree 30 MG PO DAILY for Prevent Chest Pain, #30 TAB 0 Refills Levothyroxine (Levothyroxine) 150 Mcg Tab 150 MCG PO DAILY for Thyroid, #30 TAB 0 Refills Metoprolol Succinate ER 24 HR (Metoprolol Succinate ER 24 HR) 50 Mg Tab 50 MG PO DAILY, #30 TAB 0 Refills Potassium Gluconate (Potassium) 600 Mg (99 Mg) Tablet 595 MG PO DAILY for Nutritional Supplement Quinapril HCl (Quinapril HCl) 40 Mg Tablet 40 MG PO BID Parul De La Torre MD Oct 05, 2017 11:00
--- NOTE | 2017-10-05 11:08 | HHI.FF ---
Face to Face Verification Diagnosis: (1) Hyperlipidemia (2) Hypertension (3) HTN (hypertension) (4) Syncope (5) Diabetes mellitus (6) COPD (chronic obstructive pulmonary disease) (7) CVA (cerebral vascular accident) Home Health Nursing Order: Medical education Signs/symptoms of disease process I have seen patient Elidia Alford on 10/05/17. My clinical findings support the need for the requested home health care services because: Ltd mobility - disease progression Patient has SOB I certify that my clinical findings support that this patient is homebound because: Post-op weakness Impaired cognitive ability/safety Unsteady gait/balance Parul De La Torre MD Oct 05, 2017 11:08
[2017-10-05] MEDS: SODIUM CHLOR 0.9% 1000 ML INJ 1,000 ML IV SCH (12:28)
--- NOTE | 2017-10-05 19:46 | ECHRPT ---
Indication: CVA/ TIA CONCLUSIONS The left ventricular systolic function is normal with an estimated ejection fraction in the range of 55-60%. Wall thickness is measured at the upper limits of normal. Normal left ventricular size. No definite regional wall motion abnormalities. There is trace tricuspid valve regurgitation. The estimated pulmonary arterial pressure is 27 mmHg. BP: / HR: Rhythm: Sinus MEASUREMENTS (Male / Female) Normal Values Technical Quality:Fair 2D ECHO LV Diastolic Diameter PLAX 5.2 cm 4.2 - 5.9 / 3.9 - 5.3 cm LV Systolic Diameter PLAX 4.0 cm IVS Diastolic Thickness 1.0 cm 0.6 - 1.0 / 0.6 - 0.9 cm LVPW Diastolic Thickness 1.0 cm 0.6 - 1.0 / 0.6 - 0.9 cm LV Relative Wall Thickness 0.4 LVOT Diameter 2.2 cm M-MODE Aortic Root Diameter MM 2.8 cm LA Systolic Diameter MM 4.6 cm LA Ao Ratio MM 1.6 AV Cusp Separation MM 1.8 cm DOPPLER AV Peak Velocity 145.0 cm/s AV Peak Gradient 8.4 mmHg LVOT Peak Velocity 63.2 cm/s LVOT Peak Gradient 1.6 mmHg AV Area Cont Eq pk 1.7 cm Mitral E Point Velocity 97.2 cm/s Mitral A Point Velocity 83.4 cm/s Mitral E to A Ratio 1.2 LV E' Lateral Velocity 10.4 cm/s Mitral E to LV E' Lateral Ratio 9.3 LV E' Septal Velocity 6.9 cm/s Mitral E to LV E' Septal Ratio 14.0 TR Peak Velocity 209.0 cm/s TR Peak Gradient 17.5 mmHg Right Atrial Pressure 10.0 mmHg Pulmonary Artery Systolic Pressu 27.5 mmHg Right Ventricular Systolic Press 27.5 mmHg PV Peak Velocity 114.0 cm/s PV Peak Gradient 5.2 mmHg FINDINGS LEFT VENTRICLE The left ventricular systolic function is normal with an estimated ejection fraction in the range of 55-60%. Wall thickness is measured at the upper limits of normal. Normal left ventricular size. No definite regional wall motion abnormalities. RIGHT VENTRICLE Normal right ventricular size and systolic function. LEFT ATRIUM The left atrial size is normal. RIGHT ATRIUM The right atrial size is normal. ATRIAL SEPTUM Normal atrial septal thickness without atrial level shunting by limited color doppler interrogation. AORTA The aortic root and proximal ascending aorta are normal in size on limited imaging. MITRAL VALVE Structurally normal mitral valve. No mitral valve stenosis or regurgitation. AORTIC VALVE The aortic valve is not well visualized. No aortic valve stenosis or regurgitation. TRICUSPID VALVE There is trace tricuspid valve regurgitation. The estimated pulmonary arterial pressure is 27 mmHg. PULMONARY VALVE No pulmonary valve regurgitation or stenosis. VESSELS The inferior vena cava is normal in size. PERICARDIUM No pericardial effusion. Maurice De Guzman MD (Electronically Signed) Final Date:05 October 2017 19:45
[2017-10-05] MEDS ORDERED: ATORVASTATIN 40 MG TAB PO SCH (21:00)
== END 2017-10-05 15:11 | disposition home health service (06) | DRG 61 ==
LOC: NEPE 10:01 → NEDA 12:20 → N03A 15:35 → N05B 10-04 18:35
PROVIDERS: ADMIT Hospitalist; ATTEND Hospitalist
DX: I63.8 Other cerebral infarction (principal); I21.3 ST elevation (STEMI) myocardial infarction of unspecified site; E11.42 Type 2 diabetes mellitus with diabetic polyneuropathy; E87.1 Hypo-osmolality and hyponatremia; E11.65 Type 2 diabetes mellitus with hyperglycemia; R47.01 Aphasia; J44.9 Chronic obstructive pulmonary disease, unspecified; M06.9 Rheumatoid arthritis, unspecified; F32.9 Major depressive disorder, single episode, unspecified; F41.9 Anxiety disorder, unspecified; M19.90 Unspecified osteoarthritis, unspecified site; R29.703 NIHSS score 3; E78.5 Hyperlipidemia, unspecified; K21.9 Gastro-esophageal reflux disease without esophagitis; I10 Essential (primary) hypertension; E03.9 Hypothyroidism, unspecified; Z96.653 Presence of artificial knee joint, bilateral; R47.1 Dysarthria and anarthria; D72.829 Elevated white blood cell count, unspecified; I65.21 Occlusion and stenosis of right carotid artery; M48.061 Spinal stenosis, lumbar region without neurogenic claudication; I25.10 Atherosclerotic heart disease of native coronary artery without angina pectoris; G89.29 Other chronic pain; M54.9 Dorsalgia, unspecified; G25.0 Essential tremor; Z79.82 Long term (current) use of aspirin; Z82.49 Family history of ischemic heart disease and other diseases of the circulatory system; Z79.891 Long term (current) use of opiate analgesic; Z79.4 Long term (current) use of insulin; Z95.5 Presence of coronary angioplasty implant and graft; Z87.11 Personal history of peptic ulcer disease
CPT/HCPCS: 70450; 70544; 70548; 70553; 80048; 80053; 80061; 80307; 81001; 82550; 82948; 83036; 83735; 84100; 84443; 84484; 85025; 85384; 85610; 85730; 86850; 86900; 86901; 87641; 93005; 93306; 94150; 94640; 94664; 95819; 96365; 96375; A9579; C9113; J1170; J1815; J2060; J2250; J2405; J2997; J7030; J7050

== ENCOUNTER 2017-10-08 17:57 | Observation (INO) | payer MEDICARE, BC ==
[~2017-10-08] VITALS: Ht 149.9 cm; Wt 91.0 kg
[~2017-10-08 17:57] MED LIST changes: -ALBU0.08 NEB; +ASPI-183 PO; -ASPI81CH7 CHEW; -ASTELIN NASAL; +ATOR40TA16 PO; -CITA20TA4 PO; +CITA40TA4 PO; -DOCU1CAP39 PO; +HUMALOG SQ; +HYDR-3288 PO; -HYDR-3516 PO; +HYDR-3798 PO; -HYDR200T3 PO; +ISOS30TA3 PO; -LEVO-168 PO; +LEVO150T7 PO; -LISI10TA3 PO; +METO1TAB9 PO; -PANT40TA3 PO; +PLAV75TA29 PO; -POTA-163 PO; +POTA-255 PO; -PRED10 PO; -PRED5TAB PO; +QUIN40TA22 PO; +VITA500T4 PO; -ZOLP10TA3 PO; -hydrALAZINE PO
[2017-10-08 18:12] VITALS: BP 180/84; PULSE 62; RESP 18; TEMP 98; O2SAT 98
[2017-10-08] MEDS ORDERED: ISOS20TA PO (18:49)
[2017-10-08] MEDS ORDERED: ISOS30TA3 PO (18:49)
[2017-10-08 18:55] LABS: AUTOMATED NEUTROPHIL # 10.3 TH/MM3 (1.8-7.7); BASOPHIL # 0.1 TH/MM3 (0-0.2); BASOPHIL % 0.9 % (0.0-2.0); EOSINOPHIL # 0.3 TH/MM3 (0-0.4); EOSINOPHIL % 2.2 % (0.0-4.0); HEMATOCRIT 40.9 % (35.0-46.0); HEMOGLOBIN 13.5 GM/DL (11.6-15.3); LYMPH % 18.2 % (9.0-44.0); LYMPHOCYTE # 2.7 TH/MM3 (1.0-4.8); MEAN CELL VOLUME 84.7 FL (80.0-100.0); MEAN CORPUSCULAR HEMOGLOBIN 27.9 PG (27.0-34.0); MEAN CORPUSCULAR HGB CONC 32.9 % (32.0-36.0); MEAN PLATELET VOLUME 7.5 FL (7.0-11.0); MONOCYTE # 1.3 TH/MM3 (0-0.9); NEUT % 69.7 % (16.0-70.0); PLATELET COUNT 491 TH/MM3 (150-450); RED BLOOD COUNT 4.82 MIL/MM3 (4.00-5.30); RED CELL DISTRIBUTION WIDTH 15.6 % (11.6-17.2); WHITE BLOOD COUNT 14.9 TH/MM3 (4.0-11.0)
[2017-10-08] MEDS ORDERED: DEXTROSE 50% IN WATER 50 ML SYRINGE IV PUSH ONE ×2 (19:00→20:30)
--- NOTE | 2017-10-08 19:04 | PD ---
HPI Chief Complaint: Diabetic Time Seen by Provider: 18:27 Travel History International Travel<30 days: No Contact w/Intl Traveler<30days: No Traveled to known affect area: No History of Present Illness HPI 76 year old female presents to the emergency department stating that she meant to take 60 units of her Lantus, but accidently took 60 units of her Humalog insulin. She states this occurred at approximately 1745. She states her blood glucose was 272 when she took the insulin. She states the last time before this she had insulin was in the morning. Patient denies any symptoms or complaints at this time. Moderate severity. Patient was recently discharged on 10/05/17 after being admitted for CVA. She has a history of CVA, hypertension , insulin dependent DM, hypothyroidism, hyperlipidemia. PFSH Past Medical History Hx Anticoagulant Therapy: Yes (ASA) Arthritis: Yes Asthma: Yes Autoimmune Disease: No Anxiety: Yes Depression: Yes Heart Rhythm Problems: Yes (Irregular) Cancer: No Cardiac Catheterization: Yes Cardiovascular Problems: Yes High Cholesterol: Yes Chest Pain: No Congestive Heart Failure: No COPD: No Cerebrovascular Accident: Yes (CVA 10/04/17) Diabetes: Yes Diminished Hearing: No Diverticulitis: Yes Endocrine: Yes Gastrointestinal Disorders: Yes (Diverticulatis, Abdominal Surgery) GERD: Yes Genitourinary: No Headaches: No Hepatitis: No Hiatal Hernia: Yes Hypertension: Yes Immune Disorder: No Implanted Vascular Access Dvce: Yes Kidney Stones: No Musculoskeletal: Yes (Arthritis, Neck) Neurologic: Yes (Neuropathy big toes) Psychiatric: Yes Reproductive: No Respiratory: Yes (ASTHMA) Immunizations Current: No Migraines: No Renal Failure: No Seizures: No Sleep Apnea: No Thyroid Disease: Yes (Hypothyrodism) Ulcer: Yes Menopausal: Yes : 4 Para: 4 Miscarriage: 0 : 0 Past Surgical History Abdominal Surgery: Yes (COLOSTOMY, REVERSAL OF COLOSTOMY) AICD: No Arteriovenous Shunt: No Body Medical Devices: Cardiac stent, Bilateral knees Cardiac Surgery: Yes (CORONARY STENTS) Coronary Stent: Yes Ear Surgery: No Endocrine Surgery: No Eye Surgery: No Genitourinary Surgery: No Gynecologic Surgery: Yes (HYSTERECTOMY) Hysterectomy: Yes Insulin Pump: No Joint Replacement: Yes (BETZAIDA. KNEES) Neurologic Surgery: No Oral Surgery: No Pacemaker: No Thoracic Surgery: No Other Surgery: Yes (Abdominal, Bilateral knee, Stent) Social History Alcohol Use: No Tobacco Use: No Substance Use: No Allergies-Medications (Allergen,Severity, Reaction): Coded Allergies: Fish Containing Products (Verified Allergy, Severe, HIVES, 10/08/17) Sulfa (Sulfonamide Antibiotics) (Verified Allergy, Severe, STOPS BREATHING , "SULFA POISONING", 10/08/17) egg (Verified Allergy, Severe, DYSPNEA, SWELLING, 10/08/17) WHEN MIXED WITH CULTURES FOR IMMUNIZATIONS erythromycin base (Verified Allergy, Severe, HIVES, TROUBLE BREATHING, 10/08) iodine (Verified Allergy, Severe, SWELLING, 10/08/17) mold (Verified Allergy, Severe, ITCHING, 10/08/17) DYSPNEA penicillin G (Verified Allergy, Severe, STOPS BREATHING, 10/08/17) potassium iodide (Verified Allergy, Severe, SWELLING, 10/08/17) povidone-iodine (Verified Allergy, Severe, SWELLING, 10/08/17) sodium iodide (Verified Allergy, Severe, SWELLING, 10/08/17) sodium iodide (Verified Allergy, Severe, SWELLING, 10/08/17) metformin (Verified Adverse Reaction, Severe, DIARRHEA, GASTRIC CRAMPING, 10/08/17) morphine (Verified Adverse Reaction, Unknown, STATES MAKES HER "TOO SLEEPY " - REFUSES, 10/08/17) Uncoded Allergies: MERCURY (Allergy, Severe, 09/10/16) Reported Meds & Prescriptions Reported Meds & Active Scripts Active Plavix (Clopidogrel Bisulfate) 75 Mg Tab 75 Mg PO DAILY Xanax (Alprazolam) 0.25 Mg Tab 0.25 Mg PO Q6HR PRN Reported Isosorbide Mononitrate ER (Isosorbide Mononitrate) 30 Mg Tree 30 Mg PO DAILY Humalog Inj (Insulin Human Lispro) 1,000 Unit/10 Ml Vial SQ ACHS PER SLIDING SCALE Chamisal (Hydrocodone-Acetaminophen) 7.5-325 mg Tab 1 Tab PO Q6H PRN Potassium (Potassium Gluconate) 600 Mg (99 Mg) Tablet 595 Mg PO DAILY Vitamin B-12 (Cyanocobalamin) 500 Mcg Tab 500 Mcg PO DAILY Quinapril HCl 40 Mg Tablet 40 Mg PO BID Hydralazine HCl 10 Mg Tablet 10 Mg PO DAILY Metoprolol Succinate ER 24 HR (Metoprolol Succinate) 50 Mg Tab 50 Mg PO DAILY Aspirin 325 Mg Tab 325 Mg PO DAILY Citalopram (Citalopram Hydrobromide) 40 Mg Tab 40 Mg PO DAILY Levothyroxine (Levothyroxine Sodium) 150 Mcg Tab 150 Mcg PO DAILY Lantus Solostar Pen Inj (Insulin Glargine) 300 Unit/3 Ml Pen 65 Units SQ BID Proair Hfa 8.5 GM Inh (Albuterol Sulfate) 90 Mcg/Act Aer 1 Puff INH Q4H PRN 108 mcg/actuation Symbicort Inh (Budesonide/Formoterol Fumarate) 160-4.5 Mcg/Act Aero 2 Puff INH DAILY Zetia (Ezetimibe) 10 Mg Tab 10 Mg PO DAILY Felodipine ER (Felodipine) 10 mg Tree 10 Mg PO DAILY Review of Systems Except as stated in HPI: all other systems reviewed are Neg Physical Exam Narrative GENERAL: Well developed, well nourished female patient, ambulatory. Afebrile. SKIN: Warm and dry. HEAD: Normocephalic. Atraumatic. EYES: No scleral icterus. No injection or drainage. NECK: Supple, trachea midline. No JVD or lymphadenopathy. CARDIOVASCULAR: Regular rate and rhythm without murmurs, gallops, or rubs. RESPIRATORY: Breath sounds equal bilaterally. No accessory muscle use. Lung sounds are clear to auscultation. GASTROINTESTINAL: Abdomen soft, non-tender, nondistended. MUSCULOSKELETAL: No cyanosis, or edema. BACK: Nontender without obvious deformity. No CVA tenderness. Data Data Last Documented VS Vital Signs Date Time Temp Pulse Resp B/P (MAP) Pulse Ox O2 Delivery O2 Flow Rate FiO2 10/08/17 18:12 98.0 62 18 180/84 (116) 98 Orders Orders Iv Access Insert/Monitor (10/08/17 18:34) Complete Blood Count With Diff (10/08/17 18:34) Basic Metabolic Panel (Bmp) (10/08/17 18:34) Urinalysis - C+S If Indicated (10/08/17 18:34) Ecg Monitoring (10/08/17 18:34) Diet Regular Basic (10/08/17 Dinner) Dextrose 50% In Larry (Syr) Inj (D50w (Syr (10/08/17 19:00) Alprazolam (Xanax) (10/08/17 19:15) Acetamin-Hydrocod 325-5 Mg (Chamisal 5-325 (10/08/17 19:15) Dextrose 50% In Larry (Syr) Inj (D50w (Syr (10/08/17 20:30) Dext 5%-Nacl 0.9% 1000 Ml Inj (D5w-Ns 10 (10/08/17 22:30) Admit Order (Ed Use Only) (10/08/17 22:49) Labs Laboratory Tests Test 10/08/17 18:40 10/08/17 19:30 White Blood Count 14.9 TH/MM3 Red Blood Count 4.82 MIL/MM3 Hemoglobin 13.5 GM/DL Hematocrit 40.9 % Mean Corpuscular Volume 84.7 FL Mean Corpuscular Hemoglobin 27.9 PG Mean Corpuscular Hemoglobin Concent 32.9 % Red Cell Distribution Width 15.6 % Platelet Count 491 TH/MM3 Mean Platelet Volume 7.5 FL Neutrophils (%) (Auto) 69.7 % Lymphocytes (%) (Auto) 18.2 % Monocytes (%) (Auto) 9.0 % Eosinophils (%) (Auto) 2.2 % Basophils (%) (Auto) 0.9 % Neutrophils # (Auto) 10.3 TH/MM3 Lymphocytes # (Auto) 2.7 TH/MM3 Monocytes # (Auto) 1.3 TH/MM3 Eosinophils # (Auto) 0.3 TH/MM3 Basophils # (Auto) 0.1 TH/MM3 CBC Comment DIFF FINAL Differential Comment Blood Urea Nitrogen 19 MG/DL Creatinine 1.07 MG/DL Random Glucose 60 MG/DL Calcium Level 8.9 MG/DL Sodium Level 137 MEQ/L Potassium Level 4.5 MEQ/L Chloride Level 104 MEQ/L Carbon Dioxide Level 25.7 MEQ/L Anion Gap 7 MEQ/L Estimat Glomerular Filtration Rate 50 ML/MIN Urine Color YELLOW Urine Turbidity CLEAR Urine pH 6.0 Urine Specific [place] 1.022 Urine Protein TRACE mg/dL Urine Glucose (UA) 150 mg/dL Urine Ketones NEG mg/dL Urine Occult Blood NEG Urine Nitrite NEG Urine Bilirubin NEG Urine Urobilinogen LESS THAN 2.0 MG/DL Urine Leukocyte Esterase LARGE Urine RBC 1 /hpf Urine WBC 4 /hpf Urine Squamous Epithelial Cells 6 /hpf Urine Transitional Epithelial Cells 1 /hpf Urine Renal Epithelial Cells <1 /hpf Urine Bacteria RARE /hpf Urine Hyaline Casts 2 /lpf Urine Mucus MOD /lpf Microscopic Urinalysis Comment CULT NOT INDICATED MDM Medical Decision Making Medical Screen Exam Complete: Yes Emergency Medical Condition: Yes Medical Record Reviewed: Yes Differential Diagnosis hypoglycemia vs. medication error vs. electrolyte abnormality Narrative Course 76 year old female presents to the emergency department for evaluation after she accidently took 60 units of Humalog insulin when she meant to take Lantus insulin for a 272 blood glucose. Blood glucose in triage is 98. IV access is obtained. CBC, BMP, UA are ordered and pending. Blood glucose is rechecked at 1849 and is 73. Patient is given amp of D50. She is given food. CBC shows leukocytosis of 14.9. BMP shows no acute abnormality. UA is negative for acute infection. Patient is requesting her chronic Xanax and pain medication. This is given. 2030 -blood glucose was checked and is 50. D50 1 amp is ordered. When the nurse went to give the D50, the IV was not working. The patient states that it was painful when she got her last D50. New IV access is obtained and amp of D50 is given. 2127 -blood glucose is 107. 2230 - blood glucose is 50. D5NS @ 100 ml/hr is started. [facility] is paged for admission. D5NS is changed to 50 mls/hr. Dr. Montero accepted admission. Diagnosis Primary Impression: Hypoglycemia Admitting Information Admitting Physician Requests: Gretchen Sainz Oct 08, 2017 19:04
[2017-10-08] MEDS ORDERED: ALPRAZolam 0.25 MG TAB PO ONE (19:15)
[2017-10-08] MEDS ORDERED: ACETAMINOPHEN/HYDROcodone 325 MG/5 MG TAB PO ONE (19:15)
[2017-10-08 19:19] LABS: BICARBONATE 25.7 MEQ/L (21.0-32.0); CALCIUM 8.9 MG/DL (8.5-10.1); CREATININE 1.07 MG/DL (0.50-1.00)
[2017-10-08] MEDS ORDERED: HYDR-3801 PO (19:22)
[2017-10-08 20:00] LABS: BACTERIA, URINE RARE /hpf; BILIRUBIN, URINE NEG (NEG); BLOOD, URINE NEG (NEG); GLUCOSE,URINE 150 mg/dL (NEG); HYALINE CAST, URINE 2 /lpf (RARE); KETONE, URINE NEG (NEG); MUCUS URINE MOD /lpf (OCC); NITRITE,URINE NEG (NEG); RENAL EPITHELIAL CELLS <1 /hpf; SQUAMOUS EPITHELIAL CELL URINE 6 /hpf (0-5); TRANSITIONAL EPI CELLS, URINE 1 /hpf; URINE COLOR YELLOW (YELLW/STRAW); URINE LEUKOCYTE ESTERASE LARGE (NEG)
[2017-10-08] MEDS ORDERED: DEXT 5%-NACL 0.9% 1000 ML INJ 1,000 ML IV SCH (22:30)
--- NOTE | 2017-10-08 22:57 | HHI.HP ---
[facility] Jeimy Fontenot MD Admission Diagnosis hypoglycemia Diagnoses: (1) Hypoglycemia Diagnosis: Principal (2) HTN (hypertension) Diagnosis: Principal (3) Leukocytosis Diagnosis: Principal (4) MARIO ALBERTO (acute kidney injury) Diagnosis: Principal (5) COPD (chronic obstructive pulmonary disease) Diagnosis: Principal Travel History International Travel<30 Days: No Contact w/Intl Traveler <30 Da: No Traveled to Known Affected Are: No History of Present Illness This is a 76-year-old female with a PMH of Anxiety, Depression, HTN, Hyperlipidemia, CAD, CVA and DM who presented to the ER after inadvertently taking 60u of Humalog instead of Lantus. States she took her BS at approx 1800 and was 272, at which time she took 60u of Humalog. States she did not take Lantus in addition to Humalog. Not on PO antihyperglycemics. Of note, recent admit 10/03-10/05/17 for CVA s/p TPA, symptoms ultimately resolved, d/c'd on Plavix , reports compliance w/ meds. On arrival, BS 50, s/p 1amp D50, repeat BS 107, recurrent episode of hypoglycemia while in ER w/ BS 50, now started on D5NS. No mental status changes. BP 180/84, HR 62, O2 sat 98% on RA, Afebrile. WBC 14.9, Creatinine 1.07, previously 0.99 on 10/04/17. U/a negative for UTI. Review of Systems Except as stated in HPI: all other systems reviewed are Neg ROS: 14 point review of systems otherwise negative. Past Family Social History Past Medical History PMH: Anxiety, Depression, HTN, Hyperlipidemia, CAD, CVA and DM Past Surgical History PAST SURGICAL HISTORY: Colostomy with Reversal, Cardiac Stent, Bilateral Knee Replacement, Hysterectomy Allergies: Coded Allergies: Fish Containing Products (Verified Allergy, Severe, HIVES, 10/08/17) Sulfa (Sulfonamide Antibiotics) (Verified Allergy, Severe, STOPS BREATHING , "SULFA POISONING", 10/08/17) egg (Verified Allergy, Severe, DYSPNEA, SWELLING, 10/08/17) WHEN MIXED WITH CULTURES FOR IMMUNIZATIONS erythromycin base (Verified Allergy, Severe, HIVES, TROUBLE BREATHING, 10/08) iodine (Verified Allergy, Severe, SWELLING, 10/08/17) mold (Verified Allergy, Severe, ITCHING, 10/08/17) DYSPNEA penicillin G (Verified Allergy, Severe, STOPS BREATHING, 10/08/17) potassium iodide (Verified Allergy, Severe, SWELLING, 10/08/17) povidone-iodine (Verified Allergy, Severe, SWELLING, 10/08/17) sodium iodide (Verified Allergy, Severe, SWELLING, 10/08/17) sodium iodide (Verified Allergy, Severe, SWELLING, 10/08/17) metformin (Verified Adverse Reaction, Severe, DIARRHEA, GASTRIC CRAMPING, 10/08/17) morphine (Verified Adverse Reaction, Unknown, STATES MAKES HER "TOO SLEEPY " - REFUSES, 10/08/17) Uncoded Allergies: MERCURY (Allergy, Severe, 09/10/16) Family History PAST FAMILY HISTORY: Reviewed. No h/o DM or CAD Social History PAST SOCIAL HISTORY: Negative for alcohol, tobacco or drugs. Physical Exam Vital Signs Vital Signs Date Time Temp Pulse Resp B/P (MAP) Pulse Ox O2 Delivery O2 Flow Rate FiO2 10/08/17 18:12 98.0 62 18 180/84 (116) 98 Physical Exam PE: GENERAL: Pleasant elderly white female in no acute distress. HEENT: PERRLA, EOMI. No scleral icterus or conjunctival pallor. No lid lag or facial droop. CARDIOVASCULAR: Regular rate and rhythm. No obvious murmurs to auscultation. No chest tenderness to palpation. RESPIRATORY: No obvious rhonchi or wheezing. Clear to auscultation. Breath sounds equal bilaterally. GASTROINTESTINAL: Abdomen soft, non-tender, nondistended. BS normal. MUSCULOSKELETAL: Extremities without clubbing, cyanosis, or edema. No obvious deformities. NEUROLOGICAL: Awake, alert and oriented x4. No focal neurologic deficits. Moving both upper and lower extremities spontaneously. Laboratory Laboratory Tests Test 10/08/17 18:40 10/08/17 19:30 White Blood Count 14.9 Red Blood Count 4.82 Hemoglobin 13.5 Hematocrit 40.9 Mean Corpuscular Volume 84.7 Mean Corpuscular Hemoglobin 27.9 Mean Corpuscular Hemoglobin Concent 32.9 Red Cell Distribution Width 15.6 Platelet Count 491 Mean Platelet Volume 7.5 Neutrophils (%) (Auto) 69.7 Lymphocytes (%) (Auto) 18.2 Monocytes (%) (Auto) 9.0 Eosinophils (%) (Auto) 2.2 Basophils (%) (Auto) 0.9 Neutrophils # (Auto) 10.3 Lymphocytes # (Auto) 2.7 Monocytes # (Auto) 1.3 Eosinophils # (Auto) 0.3 Basophils # (Auto) 0.1 CBC Comment DIFF FINAL Differential Comment Blood Urea Nitrogen 19 Creatinine 1.07 Random Glucose 60 Calcium Level 8.9 Sodium Level 137 Potassium Level 4.5 Chloride Level 104 Carbon Dioxide Level 25.7 Anion Gap 7 Estimat Glomerular Filtration Rate 50 Urine Color YELLOW Urine Turbidity CLEAR Urine pH 6.0 Urine Specific [place] 1.022 Urine Protein TRACE Urine Glucose (UA) 150 Urine Ketones NEG Urine Occult Blood NEG Urine Nitrite NEG Urine Bilirubin NEG Urine Urobilinogen LESS THAN 2.0 Urine Leukocyte Esterase LARGE Urine RBC 1 Urine WBC 4 Urine Squamous Epithelial Cells 6 Urine Transitional Epithelial Cells 1 Urine Renal Epithelial Cells <1 Urine Bacteria RARE Urine Hyaline Casts 2 Urine Mucus MOD Microscopic Urinalysis Comment CULT NOT INDICATED Result Diagram: 10/08/17183910/08/171839 Caprini VTE Risk Assessment Caprini VTE Risk Assessment: No/Low Risk (score <= 1) Caprini Risk Assessment Model Point Value = 1 Point Value = 2 Point Value = 3 Point Value = 5 Age 41-60 Minor surgery BMI > 25 kg/m2 Swollen legs Varicose veins or History of unexplained or recurrent spontaneous Oral contraceptives or hormone replacement Sepsis (< 1 month) Serious lung disease, including pneumonia (< 1 month) Abnormal pulmonary function Acute myocardial infarction Congestive heart failure (< 1 month) History of inflammatory bowel disease Medical patient at bed rest Age 61-74 Arthroscopic surgery Major open surgery (> 45 min) Laparoscopic surgery (> 45 min) Malignancy Confined to bed (> 72 hours) Immobilizing plaster cast Central venous access Age >= 75 History of VTE Family history of VTE Factor V Leiden Prothrombin [id number] Lupus anticoagulant Anticardiolipin antibodies Elevated serum homocysteine Heparin-induced thrombocytopenia Other congenital or acquired thrombophilia Stroke (< 1 month) Elective arthroplasty Hip, pelvis, or leg fracture Acute spinal cord injury (< 1 month) Prophylaxis Regimen Total Risk Factor Score Risk Level Prophylaxis Regimen 0-1 Low Early ambulation 2 Moderate Order ONE of the following: *Sequential Compression Device (SCD) *Heparin 5000 units SQ BID 3-4 Higher Order ONE of the following medications: *Heparin 5000 units SQ TID *Enoxaparin/Lovenox 40 mg SQ daily (WT < 150 kg, CrCl > 30 mL/min) *Enoxaparin/Lovenox 30 mg SQ daily (WT < 150 kg, CrCl > 10-29 mL/min) *Enoxaparin/Lovenox 30 mg SQ BID (WT < 150 kg, CrCl > 30 mL/min) AND/OR *Sequential Compression Device (SCD) 5 or more Highest Order ONE of the following medications: *Heparin 5000 units SQ TID (Preferred with Epidurals) *Enoxaparin/Lovenox 40 mg SQ daily (WT < 150 kg, CrCl > 30 mL/min) *Enoxaparin/Lovenox 30 mg SQ daily (WT < 150 kg, CrCl > 10-29 mL/min) *Enoxaparin/Lovenox 30 mg SQ BID (WT < 150 kg, CrCl > 30 mL/min) AND *Sequential Compression Device (SCD) Assessment and Plan Problem List: (1) Hypoglycemia ICD Code: E16.2 - Hypoglycemia, unspecified Status: Acute (2) MARIO ALBERTO (acute kidney injury) ICD Code: N17.9 - Acute kidney failure, unspecified (3) COPD (chronic obstructive pulmonary disease) ICD Code: J44.9 - Chronic obstructive pulmonary disease, unspecified Status: Acute (4) Leukocytosis ICD Code: D72.829 - Elevated white blood cell count, unspecified (5) HTN (hypertension) ICD Code: I10 - Essential (primary) hypertension Assessment and Plan A/P: 1. Hypoglycemia: pt inadvertently took 60u of Humalog instead of Lantus at approx 1800, BS 50 on arrival, s/p D50 w/ recurrent hypoglycemia, currently on D5NS. Hold antihyperglycemics. Accu-Checks q2h x12hr. 2. MARIO ALBERTO: Creatinine 1.07, previously 0.99 on 10/04/17, U/a negative for UTI, IVF for hydration, repeat labs in am. 3. COPD: Chronic Respiratory Failure, resume home Symbicort, DuoNeb prn. 4. Leukocytosis: WBC 14.9, afebrile, no signs of infection, hold antibiotics for now, repeat labs in am. 5. DVT Prophylaxis: SCD/Teds. 6. Social work for d/c planning as needed 7. Case discussed w/ ER physician at length, labs/records/imaging reviewed by me. Dulce Maria Montero MD Oct 08, 2017 22:57
[2017-10-08] MEDS ORDERED: BISACODYL 10 MG SUPP RECTAL PRN (23:00)
[2017-10-08] MEDS ORDERED: DEXTROSE 50% IN WATER 50 ML VIAL(D50) IV PUSH PRN (23:00)
[2017-10-08] MEDS ORDERED: GLUCAGON 1 MG/ML VIAL OTHER PRN (23:00)
[2017-10-08] MEDS ORDERED: SENNOSIDES 8.6 MG TAB PO PRN (23:00)
[2017-10-08] MEDS ORDERED: ACETAMINOPHEN 325 MG TAB PO PRN (23:00)
[2017-10-08] MEDS ORDERED: ALBUTEROL SULFATE 90 MCG/ACT HFA 8 GM INHALER INH PRN (23:00)
[2017-10-08] MEDS ORDERED: MAGNESIUM HYDROXIDE SUSP 30 ML CUP PO PRN (23:00)
[2017-10-08] MEDS ORDERED: LACTULOSE SYRUP 20 GM/30 ML CUP PO PRN (23:00)
[2017-10-08] MEDS ORDERED: SODIUM CHLORIDE 0.9% FLUSH 10 ML FLUSH IV FLUSH PRN (23:00)
[2017-10-09 00:02] VITALS: BP 139/65; PULSE 49; RESP 16; TEMP 98.6; O2SAT 98
[2017-10-09 00:45] VITALS: BP 190/78; PULSE 50; RESP 16; TEMP 97.6; O2SAT 99
[2017-10-09] MEDS: ALPRAZolam 0.25 MG TAB PO PRN ×2 (00:57→07:25)
[2017-10-09 02:51] VITALS: BP 141/65; PULSE 53; RESP 14; O2SAT 99
[2017-10-09 03:57] VITALS: BP 181/87; PULSE 59; RESP 16; TEMP 98.1; O2SAT 99
[2017-10-09] MEDS: ONDANSETRON HCL 4 MG/2 ML VIAL IVP PRN ×2 (05:59→11:31)
[2017-10-09] MEDS ORDERED: LEVOTHYROXINE SODIUM 150 MCG TAB PO SCH (06:00)
[2017-10-09 06:18] LABS: AUTOMATED NEUTROPHIL # 8.1 TH/MM3 (1.8-7.7); BASOPHIL # 0.1 TH/MM3 (0-0.2); BASOPHIL % 0.9 % (0.0-2.0); EOSINOPHIL # 0.2 TH/MM3 (0-0.4); EOSINOPHIL % 1.9 % (0.0-4.0); HEMOGLOBIN 12.7 GM/DL (11.6-15.3); LYMPH % 16.6 % (9.0-44.0); MEAN CELL VOLUME 83.5 FL (80.0-100.0); MEAN CORPUSCULAR HEMOGLOBIN 29.5 PG (27.0-34.0); MEAN CORPUSCULAR HGB CONC 35.3 % (32.0-36.0); MEAN PLATELET VOLUME 7.9 FL (7.0-11.0); MONO % 11.5 % (0.0-8.0); MONOCYTE # 1.4 TH/MM3 (0-0.9); NEUT % 69.1 % (16.0-70.0); PLATELET COUNT 405 TH/MM3 (150-450); RED BLOOD COUNT 4.32 MIL/MM3 (4.00-5.30); RED CELL DISTRIBUTION WIDTH 15.8 % (11.6-17.2); WHITE BLOOD COUNT 11.7 TH/MM3 (4.0-11.0)
[2017-10-09] MEDS ORDERED: ISOSORBIDE MONONITRATE 30 MG CR TAB (IMDUR) PO SCH (07:00)
[2017-10-09 07:19] LABS: ALBUMIN 3.2 GM/DL (3.4-5.0); ALKALINE PHOSPHATASE 84 U/L (45-117); ALT (GPT) 27 U/L (10-53); AST (GOT) 24 U/L (15-37); BICARBONATE 27.6 MEQ/L (21.0-32.0); BLOOD UREA NITROGEN 17 MG/DL (7-18); CALCIUM 8.5 MG/DL (8.5-10.1); CHLORIDE 103 MEQ/L (98-107); CREATININE 0.89 MG/DL (0.50-1.00); GLOMERULAR FILTRATION RATE 62 ML/MIN (>89); GLUCOSE,RANDOM 162 MG/DL (74-106); SODIUM (NA) 139 MEQ/L (136-145); TOTAL BILIRUBIN ADULT 0.3 MG/DL (0.2-1.0); TOTAL PROTEIN 7.2 GM/DL (6.4-8.2)
[2017-10-09 08:06] VITALS: BP 173/79; PULSE 60; RESP 16; TEMP 98.5; O2SAT 95
[2017-10-09] MEDS ORDERED: ACETAMINOPHEN 325 MG TAB PO PRN (08:30)
[2017-10-09] MEDS ORDERED: ACETAMINOPHEN/HYDROcodone 325 MG/5 MG TAB PO PRN (08:30)
[2017-10-09] MEDS ORDERED: ACETAMINOPHEN/HYDROcodone 325 MG/7.5 MG TAB PO PRN (08:30)
--- NOTE | 2017-10-09 08:35 | HHI.FF ---
Face to Face Verification Diagnosis: (1) Hypoglycemia (2) Diabetes mellitus (3) HTN (hypertension) (4) COPD (chronic obstructive pulmonary disease) (5) Acute lacunar stroke (6) Back pain, chronic (7) Hypothyroidism (8) Hyperlipidemia (9) Anxiety Physical Therapy Order: Evaluate and Treat, Improve ambulation, Strength and gait training Home Health Nursing Order: Medical education Signs/symptoms of disease process Diabetic education Nursing assessment with vital signs I have seen patient Elidia Alford on 10/09/17. My clinical findings support the need for the requested home health care services because: Deconditioned w/ increased weakness Med compliance is questionable Limited ability to care for self I certify that my clinical findings support that this patient is homebound because: Unsteady gait/balance Unsafe to leave home unassisted Unable to use public transportation Sasha Carmona PA-C Oct 09, 2017 8:35 am
[2017-10-09] MEDS ORDERED: ACETAMINOPHEN/HYDROcodone 325 MG/7.5 MG TAB PO ONE (08:40)
[2017-10-09] MEDS ORDERED: BUDESONIDE-FORMOTEROL 160/4.5 MCG INHALER INH SCH (09:00)
[2017-10-09] MEDS ORDERED: EZETIMIBE 10 MG TAB PO SCH (09:00)
[2017-10-09] MEDS ORDERED: SODIUM CHLORIDE 0.9% FLUSH 10 ML FLUSH IV FLUSH SCH (09:00)
[2017-10-09] MEDS ORDERED: hydrALAZINE HCL 10 MG TAB PO SCH (09:00)
[2017-10-09] MEDS ORDERED: CITALOPRAM HYDROBROMIDE 40 MG TAB PO SCH (09:00)
[2017-10-09] MEDS ORDERED: CLOPIDOGREL 75 MG TAB PO SCH (09:00)
[2017-10-09] MEDS ORDERED: DOCUSATE SODIUM 50 MG/SENNA 8.6 MG TAB PO SCH (09:00)
[2017-10-09] MEDS ORDERED: ASPIRIN 325 MG TAB PO SCH (09:00)
[2017-10-09] MEDS ORDERED: METOPROLOL SUCCINATE 50 MG EXTENDED RELEASE TAB PO SCH (09:00)
[2017-10-09] MEDS ORDERED: LISINOPRIL 20 MG TAB PO SCH (09:00)
--- NOTE | 2017-10-09 09:08 | HHI.PR ---
Subjective Remarks Follow up for hypoglycemia. The patient complains of her chronic back pain today , requesting her home [place] to be restarted. She otherwise denies any other medical complaints including no headache, lightheadedness, dizziness, chest pain , shortness of breath, or abdominal complaints. She is tolerating oral intake. She wants to go home. Blood sugars improved and stable. Objective Vitals Vital Signs Date Time Temp Pulse Resp B/P (MAP) Pulse Ox O2 Delivery O2 Flow Rate FiO2 10/09/17 08:06 98.5 60 16 173/79 (110) 95 10/09/17 03:57 98.1 59 16 181/87 (118) 99 10/09/17 02:51 53 14 141/65 (90) 99 10/09/17 00:45 97.6 50 16 190/78 (115) 99 10/09/17 00:13 10/09/17 00:02 98.6 49 16 139/65 (89) 98 Nasal Cannula 2.00 10/08/17 18:12 98.0 62 18 180/84 (116) 98 Result Diagram: 10/09/17 0547 10/09/17 0547 Objective Remarks GENERAL: Well-nourished, well-developed elderly female patient in [facility]. SKIN: Warm and dry. No rash. HEENT: Normocephalic. Atraumatic. Pupils equal and round. Mucous membranes pink and moist. CARDIOVASCULAR: Regular rate and rhythm. S1, S2 noted. No murmur appreciated. RESPIRATORY: No accessory muscle use. Clear to auscultation. Breath sounds equal bilaterally. GASTROINTESTINAL: Abdomen soft, non-tender, nondistended. Normoactive bowel sounds x4. MUSCULOSKELETAL: No obvious deformities. Extremities without clubbing, cyanosis , or edema. NEUROLOGICAL: Awake and alert. No obvious cranial nerve deficits. Motor grossly within normal limits. Normal speech. PSYCHIATRIC: Appropriate mood and affect; insight and judgment normal. Medications and IVs Current Medications Medications (Trade) Dose Ordered Sig/Amador Route Start Time Stop Time Status Last Admin (NS Flush) 2 ml UNSCH PRN IV FLUSH 10/08/17 23:00 (NS Flush) 2 ml BID IV FLUSH 10/09/17 09:00 10/09/17 09:06 (Zofran Inj) 4 mg Q6H PRN IVP 10/08/17 23:00 10/09/17 05:59 (Rani-Colace) 1 tab BID PO 10/09/17 09:00 10/09/17 09:05 (Milk Of Magnesia Liq) 30 ml Q12H PRN PO 10/08/17 23:00 (Senokot) 17.2 mg Q12H PRN PO 10/08/17 23:00 (Dulcolax Supp) 10 mg DAILY PRN RECTAL 10/08/17 23:00 (Lactulose Liq) 30 ml DAILY PRN PO 10/08/17 23:00 (D50w (Vial) Inj) 50 ml UNSCH PRN IV PUSH 10/08/17 23:00 (Glucagon Inj) 1 mg UNSCH PRN OTHER 10/08/17 23:00 (Proair Hfa Inh) 1 puff Q4H PRN INH 10/08/17 23:00 (Xanax) 0.25 mg Q6HR PRN PO 10/08/17 23:00 10/09/17 07:25 (Aspirin) 325 mg DAILY PO 10/09/17 09:00 10/09/17 09:04 (Symbicort 160-4.5 Mcg Inh) 2 puff DAILY INH 10/09/17 09:00 10/09/17 10:14 (CeleXA) 40 mg DAILY PO 10/09/17 09:00 10/09/17 09:05 (Plavix) 75 mg DAILY PO 10/09/17 09:00 10/09/17 09:06 (Zetia) 10 mg DAILY PO 10/09/17 09:00 10/09/17 09:06 (Apresoline) 10 mg DAILY PO 10/09/17 09:00 10/09/17 09:05 (Imdur) 30 mg DAILY@0700 PO 10/09/17 07:00 10/09/17 05:34 (Synthroid) 150 mcg DAILY@0600 PO 10/09/17 06:00 10/09/17 05:34 (Toprol Xl) 50 mg DAILY PO 10/09/17 09:00 10/09/17 09:05 (Norvasc) 10 mg DAILY PO 10/09/17 09:00 10/09/17 09:05 (Prinivil) 40 mg BID PO 10/09/17 09:00 10/09/17 09:04 (Tylenol) 650 mg Q6H PRN PO 10/09/17 08:30 ([place] 5-325 Mg) 1 tab Q4H PRN PO 10/09/17 08:30 ([place] 7.5-325 Mg) 1 tab Q4H PRN PO 10/09/17 08:30 A/P Problem List: (1) Hypoglycemia ICD Code: E16.2 - Hypoglycemia, unspecified Status: Acute (2) MARIO ALBERTO (acute kidney injury) ICD Code: N17.9 - Acute kidney failure, unspecified (3) COPD (chronic obstructive pulmonary disease) ICD Code: J44.9 - Chronic obstructive pulmonary disease, unspecified Status: Acute (4) Leukocytosis ICD Code: D72.829 - Elevated white blood cell count, unspecified (5) HTN (hypertension) ICD Code: I10 - Essential (primary) hypertension Assessment and Plan 76-year-old female with a PMH of Anxiety, Depression, HTN, Hyperlipidemia, CAD, CVA and DM who presented to the ER after inadvertently taking 60u of Humalog instead of Lantus. Hypoglycemia: pt inadvertently took 60u of Humalog instead of Lantus at approx 1800 while she was distracted talking to her . BS 50 on arrival, s/p D50 w/ recurrent hypoglycemia, currently on D5NS. Hold antihyperglycemics. Accu- Checks q2h x12hr. Blood glucose much improved. Discontinued fluids at 8am this morning. If BG remains stable through lunch, will discharge home. MARIO ALBERTO: Creatinine 1.07, previously 0.99 on 10/04/17, U/a negative for UTI, IVF for hydration, repeat labs today much improved, Cr 0.89, MARIO ALBERTO resolved. COPD: Chronic Respiratory Failure, resume home Symbicort, DuoNeb prn. Leukocytosis: WBC 14.9, afebrile, no signs of infection, hold antibiotics for now, repeat labs show improvement with WBC 11K. Chronic Back Pain: continue patient's home [place]. Outpatient f/up with her pain management. DVT Prophylaxis: SCD/Teds. Discharge Planning Plan to discharge after lunch today if BG stable. Discharge patient to home Condition on discharge: Stable Diabetic Diet as tolerated Ad Elif activity Rx written: no new meds Follow-up with primary care physician within 1 week Sasha Carmona PA-C Oct 09, 2017 09:08
[2017-10-09 11:25] VITALS: BP 144/64; PULSE 56; RESP 16; TEMP 98.4; O2SAT 95
== END 2017-10-09 13:52 | disposition home or self-care (01) ==
LOC: NEPC 17:57 → NEDA 22:51 → NEPHCDU 10-09 00:15
PROVIDERS: ADMIT Hospitalist; ATTEND Hospitalist
DX: E11.649 Type 2 diabetes mellitus with hypoglycemia without coma (principal); I10 Essential (primary) hypertension; N17.9 Acute kidney failure, unspecified; D72.829 Elevated white blood cell count, unspecified; J44.9 Chronic obstructive pulmonary disease, unspecified; I25.10 Atherosclerotic heart disease of native coronary artery without angina pectoris; E78.5 Hyperlipidemia, unspecified; Z79.4 Long term (current) use of insulin; Z86.73 Personal history of transient ischemic attack (TIA), and cerebral infarction without residual deficits
CPT/HCPCS: 80048; 80053; 81001; 82948; 85025; 96361; 96374; 99285; G0378; J2405; J7042

== ENCOUNTER 2017-11-29 10:58 | Day surgery (SDC) | payer MEDICARE, BC ==
[~2017-11-29] VITALS: Ht 149.9 cm; Wt 103.4 kg
[~2017-11-29 10:58] MED LIST changes: -ATOR40TA16 PO
[2017-11-29] MEDS ORDERED: IOHEXOL 350 MG/ML 100 ML BTL (for Cath Lab) OTHER ONE (10:59)
[2017-11-29] MEDS ORDERED: GABA300C5 PO (11:28)
[2017-11-29] MEDS ORDERED: ZOLP5TAB3 PO (11:28)
[2017-11-29] MEDS ORDERED: zyrtec (11:28)
[2017-11-29] MEDS ORDERED: HYDR-3111 PO (11:28)
[2017-11-29] MEDS ORDERED: FAMOTIDINE 20 MG/2 ML VIAL IV PUSH SCH (11:30)
[2017-11-29] MEDS ORDERED: NS 1000P @30 MLS/HR (KVO) IV SCH (11:30)
[2017-11-29] MEDS ORDERED: diphenhydrAMINE HCL 50 MG/ML VIAL IV PUSH SCH (11:30)
[2017-11-29] MEDS ORDERED: methylPREDNISolone SOD SUCC 125 MG/2 ML VIAL IV PUSH SCH (11:30)
[2017-11-29 11:45] VITALS: BP 176/92; PULSE 68; RESP 18; TEMP 98.6; O2SAT 94
[2017-11-29] MEDS ORDERED: HEPARIN-NS/PF INJ 1,000 ML ONE (12:48)
[2017-11-29] MEDS ORDERED: NITROGLYCERIN INJ 5 ML ONE (12:48)
[2017-11-29] MEDS ORDERED: HEPARIN SODIUM - IV 10,000 UNITS/10 ML VIAL ONE (12:48)
[2017-11-29] MEDS ORDERED: VERAPAMIL HCL 5 MG/2 ML VIAL ONE (12:48)
[2017-11-29 12:51] LABS: AUTOMATED NEUTROPHIL # 10.2 TH/MM3 (1.8-7.7); BASOPHIL # 0.1 TH/MM3 (0-0.2); BASOPHIL % 0.9 % (0.0-2.0); EOSINOPHIL # 0.2 TH/MM3 (0-0.4); EOSINOPHIL % 1.3 % (0.0-4.0); HEMOGLOBIN 12.2 GM/DL (11.6-15.3); LYMPH % 7.9 % (9.0-44.0); MEAN CELL VOLUME 81.7 FL (80.0-100.0); MONO % 10.9 % (0.0-8.0); MONOCYTE # 1.4 TH/MM3 (0-0.9); PLATELET COUNT 406 TH/MM3 (150-450); RED BLOOD COUNT 4.52 MIL/MM3 (4.00-5.30); RED CELL DISTRIBUTION WIDTH 15.5 % (11.6-17.2)
[2017-11-29 13:10] LABS: BICARBONATE 28.8 MEQ/L (21.0-32.0); CALCIUM 8.2 MG/DL (8.5-10.1); CREATININE 0.77 MG/DL (0.50-1.00)
[2017-11-29] MEDS ORDERED: MIDAZOLAM HCL 2 MG/2 ML VIAL ONE (13:11)
[2017-11-29 13:24] LABS: BANDS 2 % (0-6); LYMPHOCYTES 6 % (9-44); METAMYELOCYTES 3 % (0-1); MONOCYTES 6 % (0-8); MYELOCYTES 3 % (0-0); NEUTROPHIL # MANUAL DIFF 11.1 TH/MM3 (1.8-7.7); POLYS (SEG NEUTROPHILS) 77 % (16-70)
[2017-11-29 13:25] LABS: TOXIC GRANULATION 1+ (NORMAL)
--- NOTE | 2017-11-29 14:20 | CATHPROC ---
[employer] HIS Report Study Information Study Number Admission Scheduled Start Study Start [id number] Nov 29 2017 10:58AM 11/29/2017 Nov 29 2017 12:49PM Lottie Service Cardiac Catheterization Admit Source Facility Department Other [facility] - Apartment Maintenance Physician and Clinical Staff Initial Isidoro [employer] Reporteralan Ortega RN, Vicente Other Radha Wang,SAFIA Recorder Chiquita Garcia,RT(R) Scrub Ravi Miguel RCIS(BS) Procedures Performed Procedure Location (Site) Vessel Name Coronary Angiograms LCA Left Coronary Coronary Angiograms RCA Right Coronary IVUS Lft Main Left Coronary Wire insertion Fem Art (right) Femoral Art Wire insertion Fem Vein (right) Femoral Vein Equipment Time Underwater Roboticist Description Size Mfg Part Number Used/Scraped WIRE, BALANCE MIDDLEWEIGHT [id number] 13:41 [employer] 190CM Used 190CM *[id number] INTRODUCER SET, 13:14 [employer] FR 5 [id number] *[id number] Used MICROPUNCTURE STIFF [phone] *[id number] *[id number] 13:56 DAIG/[employer] ANGIOSEAL, FR6 VIP FR 6 Used *[id number] 13:56 DAIG/[employer] ANGIOSEAL, FR6 VIP FR 6 Used *[id number] 13:29 MEDTRONIC JL 4.0 DXTERITY CATHETER FR 5 Used *[id number] 13:27 NYCOMED OMNIPAQUE, 350 MG, 150ML 150ML [id number] Used [id number] 13:14 TERUMO MEDICAL SHEATH, FR5 TERUMO (10CM) FR 5 Used *[id number] 13:15 TERUMO MEDICAL SHEATH, FR5 TERUMO (10CM) FR 5 Used *[id number] 13:39 TERUMO MEDICAL SHEATH, FR6 TERUMO (10CM) FR 6 Used *[id number] CATHETER, [employer] [id number] 13:43 VOLCANO Used IMAGING *[id number] Equipment Model, Serial, Lot Number and Expiration Data Description Model Number Serial Number Lot Number Expiration Date ANGIOSEAL, FR6 VIP [id number] 08-02-2018 CATHETER, [employer] 1110 [id number] 10-01-2019 IMAGING INTRODUCER SET, [id number] 08-22-2020 MICROPUNCTURE STIFF JL 4.[facility] [id number] 03-27-2020 History: Current Medications Medication Dosage/Unit Route Frequency Last Date/Time Taken ASA Insulin Synthroid Zieta Xanax HYDRALAZINE K-Dur History: Allergies Allergy Reaction Egg Allergy DYSPNEA, SWELLING Erythromycin HIVES, TROUBLE BREATHING iodine SWELLING metformin DIARRHEA, GASTRIC CRAMPING Molds and Smuts ITCHING morphine STATES MAKES HER "TOO SLEEPY" - REFUSES Penicillin STOPS BREATHING Seafood HIVES Sulfa STOPS BREATHING, "SULFA POISONING" MERCURY Sulfa (Sulfonamide Antibiotics) STOPS BREATHING, "SULFA POISONING" Fish Containing Products HIVES potassium iodide SWELLING sodium iodide SWELLING erythromycin base HIVES, TROUBLE BREATHING povidone-iodine SWELLING penicillin G STOPS BREATHING egg DYSPNEA, SWELLING mold ITCHING History: Risk Factors Family History of Hypertension Dyslipidemia Previous NM Previous Heart Failure Premature CAD Yes Yes Yes No No Prior Valve Prior PCI Prior PCIDate Prior CABG Surgery No Yes 07/03/2009 No Cerebrovascular Peripheral Artery Chronic Lung On Dialysis Diabetes Diabetes Therapy Disease Disease Disease No Yes No No Yes Insulin History: Stress Tests Stress or Imaging Studies Performed Yes Standard Exercise Stress Test No Stress Echo No Stress Test SPECT Stress Test SPECT Result Stress Test SPECT Ischemia Risk/Extent Yes Positive Low Stress Test CMR No Cardiac CTA Coronary Calcium Score No No History: Other Disease Selection Items CAD Labs Hgb (g/dl) Hct (%) RBC (MIL/MM3) WBC (l/cumm) Platelets (thousands) 11.60-17.00 35.00-51.00 4.00-5.90 4.00-11.00 150.00-450.00 12.2 37 4.5 13 406 Glucose (mg/dl) BUN (mg/dl) Creatinine (mg/dl) BUN:Creatinine (1:x) 74.00-106.00 7.00-18.00 0.50-1.30 10.00-20.00 74 15 0.7 21.4 Na (meq/l) K (meq/l) Cl (meq/l) CO2 (mmol/L) Ca (mg/dl) 136.00-145.00 3.50-5.10 98.00-107.00 21.00-32.00 8.50-10.10 139 5.4 102 28.8 8.2 CPK-MB (ng/ML) 0.50-3.60 Not Drawn Medication Medication Total Dose (Bolus/Oral) Medication Total Dosage/Unit 1% XYLOCAINE 20 mL FENTANYL 150 mcg HEPARIN 6200 units VERSED 0.5 mg Medications (Bolus/Oral) Medication Time Given Dosage/Unit Administered By Reason 1% XYLOCAINE 11/29/2017 1:18:50 PM 20 mL Isidoro Peña 20 mL 1% XYLOCAINE given in lab by Isidoro Peña in Right Groin via Subcutaneous. VERSED 11/29/2017 1:22:30 PM 0.5 mg Vicente Ortega RN 0.5 mg VERSED given in lab by Vicente Ortega RN via Peripheral IV. FENTANYL 11/29/2017 1:23:25 PM 100 mcg Vicente Ortega RN 100 mcg FENTANYL given in lab by Vicente Ortega RN via Peripheral IV. HEPARIN 11/29/2017 1:39:30 PM 6200 units Vicente Ortega RN 6200 units HEPARIN given in lab by Vicente Ortega RN via Peripheral IV. FENTANYL 11/29/2017 1:56:18 PM 50 mcg Vicente Ortega RN 50 mcg FENTANYL given in lab by Vicente Ortega RN via Peripheral IV. Medication (Drip) Medication Time Given Dosage/Unit Concentration/Unit Diluent (ml) Solution IV Solutions 11/29/2017 12:54:21 PM 0 mL (IV) 500 NaCl .9 Patient arrived on IV Solutions in Left Antecubital via Peripheral IV. Pump/Drip Flow = 20 ml/hr usin g NaCl .9. Initial Case Assessment Cardiovascular HR Rhythm 71 reg Edema Present Skin color Skin None Normal Warm Circulatory - Right Pulses Femoral Radial 2 3 Scale (0,1,2,3,4,d) Circulatory - Left Pulses Femoral Radial 1 Scale (0,1,2,3,4,d) Circulatory - Lower Extremities Color Lower Right Color Lower Left Normal Normal Neurological State Oriented to time-place- Alert Moves all extremities person Respiration - General Respiration Rate SpO2 (%) (B/min) 16 98 Final Case Assessment Cardiovascular HR Rhythm NIBP Chest Pain 75 reg 161/69 0 Edema Present Skin color Skin None Normal Warm Circulatory - Right Pulses Dorsalis Pedis Femoral Radial 2 3 2 Scale (0,1,2,3,4,d) Circulatory - Left Pulses Dorsalis Pedis Femoral Radial Scale (0,1,2,3,4,d) Circulatory - Lower Extremities Color Lower Right Normal Neurological State Oriented to time-place- Alert Moves all extremities person Respiration - General Respiration Rate SpO2 (%) (B/min) 16 96 Chronological Log Time Study Chronological Log 12:45:39 Patient arrived via Bed. 12:46:43 Patient Name, D.O.B, / Armband Verified By R.N. 12:47:20 Pre-op and post- op instructions given; patient acknowledges understanding of instructions. 12:47:58 Consent signed by the physician and the patient and verified by the Apartment Maintenance staff. Vitals capture started with the following parameters, Patient=Adult, Interval=5 min, Initial Pr moirpr=140 mmHg, 12:51:13 Deflation Rate=5 mmHg, Cuff placed on Left Arm 12:51:17 Verbal Stimulation=2 Physical Stimulation=2 Airway=2 Respiration=2 TOTAL=8. (0=absent, 1=li mited, 2=present) 12:53:05 Patient has been NPO for More than 6Hrs. 12:53:09 Skin Breakdown-none 12:53:18 HR=70 bpm, GTCL=479/80 mmhg, SpO2=97.0 %, Resp=20 B/min, Pain=0, Matthew=10, [place]=2 12:53:18 Patient Warmer Placed on the Table. 12:53:21 A # 20 IV was noted in the Antecubital (left). Grade = 0 12:53:47 Reference ECG taken 12:54:21 Patient arrived on IV Solutions in Left Antecubital via Peripheral IV. Pump/Drip Flow = 20 ml/hr using NaCl .9. 12:54:45 History and physical on the chart or being dictated. 12:54:54 NIBP STAT measurement started. 12:55:33 HR=76 bpm, ZBVU=479/90 mmhg, SpO2=97.0 %, Resp=25 B/min, Pain=0, Matthew=10, [place]=2 Assessment: Initial Case, HR=71 BPM, Rhythm=reg, Edema=None, Color=Normal, Skin = Warm Right Pulses: Femoral=2, Radial=3 Left Pulses: Femoral=1 12:55:53 Lower Right Extremities: Color=Normal Lower Left Extremities: Color=Normal Neurological: State=Alert, Ox3, DIANA Respiration: Resp=16 B/min, SpO2=98 % 12:57:42 HR=69 bpm, YBZQ=845/84 mmhg, SpO2=98.0 %, Resp=23 B/min, Pain=0, Matthew=10, [place]=2 12:58:16 Right Radial and groin(s) prepped with 2% chlorhexidine, and draped after a 3 min. waiting time. 12:58:24 MD paged 13:02:37 Vitals capture stopped. 13:02:52 Pressure channel 1 zeroed. 13:05:23 MD arrived. Vitals capture started with the following parameters, Patient=Adult, Interval=5 min, Initial Pr zoiyrx=029 mmHg, 13:12:22 Deflation Rate=5 mmHg, Cuff placed on Left Arm 13:13:16 HR=69 bpm, BYTS=691/78 mmhg, SpO2=95.0 %, Resp=18 B/min, Pain=0, Matthew=10, [place]=2 Time Out. Correct patient, correct procedure, correct physician, labs, allergies, and equipment verified with labor relations officer 13:17:37 team present. Fire risk assesment completed (see hard stop sheet for coding). Time Out Conc urred by and individual staff in procedure. 13:18:00 Case Start 13:18:01 Verbal Stimulation=2 Physical Stimulation=2 Airway=2 Respiration=2 TOTAL=8. (0=absent, 1=li mited, 2=present) 13:18:07 HR=70 bpm, ABWU=003/85 mmhg, SpO2=96.0 %, Resp=19 B/min, Pain=0, Matthew=10, [place]=2 13:18:50 20 mL 1% XYLOCAINE given in lab by Isidoro Peña in Right Groin via Subcutaneous. Access site was Right Femoral Vein with MP kit 13:22:03 13:22:20 A wire was inserted via Fem Vein (right). 13:22:30 0.5 mg VERSED given in lab by Vicente Ortega RN via Peripheral IV. 13:22:42 A SHEATH, FR5 TERUMO (10CM) FR 5 was advanced into the Fem Vein (right) using the Percutane ous technique. 13:22:58 HR=75 bpm, SRFP=087/93 mmhg, SpO2=98.0 %, Resp=22 B/min, Pain=0, Matthew=10, [place]=2 13:23:25 100 mcg FENTANYL given in lab by Vicente Ortega RN via Peripheral IV. 13:24:27 fluid line connected to venous sheath 13:24:46 Access site was Right Femoral Artery with MP kit 13:24:57 A wire was inserted via Fem Art (right). 13:25:11 A SHEATH, FR5 TERUMO (10CM) FR 5 was advanced into the Fem Art (right) using the Percutaneo us technique. 13:26:01 An injection in the Fem Art (right) was made through the SHEATH, FR5 TERUMO (10CM) FR 5. A JR 4.0 INFINITI CATHETER FR 5 was advanced over a wire. OMNIPAQUE, 350 MG, 150ML 150ML was us ed for 13:27:03 injections. 13:28:09 HR=71 bpm, LHCO=895/65 mmhg, SpO2=96.0 %, Resp=18 B/min, Pain=0, Matthew=10, [place]=2 Recorded Pressure: LV, HR=71, Condition=Condition 1 13:28:15 (Left Ventricle) LV 187/3/10 Recorded Pressure: LV, Ao, HR=70, Condition=Condition 1 13:28:29 (Left Ventricle) LV 187/5/14, (Aorta) Ao 187/75/117 13:28:52 The RCA was injected and visualized at various angles. OMNIPAQUE, 350 MG, 150ML 150ML used . Recorded Pressure: Ao, HR=68, Condition=Condition 1 13:29:16 (Aorta) Ao 167/67/105 13:29:37 Catheter was removed A JL 4.0 DXTERITY CATHETER FR 5 was advanced over a wire. OMNIPAQUE, 350 MG, 150ML 150ML was us ed for 13:31:24 injections. 13:32:20 The RCA was injected and visualized at various angles. OMNIPAQUE, 350 MG, 150ML 150ML used . Recorded Pressure: AoP, HR=77, Condition=Condition 1 13:33:36 (AO post) AoP 192/74/120 13:33:45 HR=76 bpm, WNCV=057/78 mmhg, SpO2=90.0 %, Resp=14 B/min, Pain=0, Matthew=10, [place]=2 13:34:35 The LCA was injected and visualized at various angles. OMNIPAQUE, 350 MG, 150ML 150ML used . 13:38:14 HR=81 bpm, FXWR=058/65 mmhg, SpO2=94.0 %, Resp=15 B/min, Pain=0, Matthew=10, [place]=2 A SHEATH, FR6 TERUMO (10CM) FR 6 was exchanged in the Fem Art (right). This was necessary in or dany to 13:38:35 accomodate a larger catheter. 13:39:30 6200 units HEPARIN given in lab by Vicente Ortega RN via Peripheral IV. A JL 4.0 GUIDE CATHETER FR 6 was advanced over a wire. OMNIPAQUE, 350 MG, 150ML 150ML was used for 13:41:48 injections. 13:43:08 HR=81 bpm, MIKR=204/76 mmhg, SpO2=95.0 %, Resp=17 B/min, Pain=0, Matthew=10, [place]=2 13:43:55 A WIRE, BALANCE MIDDLEWEIGHT 190CM 190CM was inserted via Fem Art (right). 13:45:03 Interventional wire has crossed the lesion 13:45:12 An CATHETER, [employer] IMAGING was advanced through the lesion. Images saved ont o IVUS hard drive 13:46:37 IVUS in progress using CATHETER, [employer] IMAGING 13:48:07 HR=82 bpm, ECTM=290/79 mmhg, SpO2=96.0 %, Resp=16 B/min, Pain=0, Matthew=10, [place]=2 13:49:30 IVUS catheter removed 13:53:00 Wire removed 13:53:07 HR=76 bpm, RFJZ=456/69 mmhg, SpO2=95.0 %, Resp=21 B/min, Pain=0, Matthew=10, [place]=2 Assessment: Final Case, HR=75 BPM, Rhythm=reg, RNCR=914/69 mmhg, Chest Pain=0, Edema=None, [place] r=Normal, Skin = Warm Right Pulses: [place] Ped=2, Femoral=3, Radial=2 13:54:43 Left Pulses: Post Tib=1 Lower Right Extremities: Color=Normal Neurological: State=Alert, Ox3, DIANA Respiration: Resp=16 B/min, SpO2=96 % 13:55:21 Catheter(s) removed without difficulty 13:55:24 ANGIOSEAL, FR6 VIP FR 6 placement in the Fem Art (right) 13:55:46 Case End 13:56:18 50 mcg FENTANYL given in lab by Vicente Ortega RN via Peripheral IV. 13:58:55 HR=75 bpm, WWMM=259/70 mmhg, SpO2=97.0 %, Resp=24 B/min, Pain=0, Matthew=10, [place]=2 14:03:11 Activated Clotting Time Drawn 14:03:13 HR=70 bpm, QBIG=563/62 mmhg, SpO2=91.0 %, Resp=17 B/min, Pain=0, Matthew=10, [place]=2 14:07:54 ACT (Normal Range 90-180) = 302 14:08:14 HR=72 bpm, LURB=532/74 mmhg, SpO2=92.0 %, Resp=20 B/min, Pain=0, Matthew=10, [place]=2 End Study - Contrast Media Used In Study Contrast Total Opened (mL) Total Used (mL) Total Wasted (mL) Omnipaque 80 80 0 End Study - Maximum Contrast Load Max Contrast Load (mL) 738.6 End Study - Radiation Exposure Fluoro Time (minutes) 6.6 End Study - Sheaths Sheaths Pulled By Sheath Hold Time (min) Isidoro Peña End Study - Patient Disposition Complications Transferred To No Outpatient Bed
[2017-11-29] MEDS ORDERED: MISC INFORMATION XX ONE (14:30)
[2017-11-29] MEDS ORDERED: PLAV75TA29 PO (15:00)
--- NOTE | 2017-11-29 15:45 | PD.CAR.PN ---
CVT Progress Note Subjective/Hospital Course: pt seen and evaluated , full consult pending sts data discussed with pt RISK SCORES About the STS Risk Calculator Procedure: CAB Only Risk of Mortality: 4.323% Morbidity or Mortality: 23.835% Long Length of Stay: 15.385% Short Length of Stay: 17.463% Permanent Stroke: 2.019% Prolonged Ventilation: 18.108% DSW Infection: 1.086% Renal Failure: 5.595% Reoperation: 6.554% Objective: Vital Signs Date Time Temp Pulse Resp B/P (MAP) Pulse Ox O2 Delivery O2 Flow Rate FiO2 11/29/17 11:45 98.6 68 18 176/92 (120) 94 Labs: Laboratory Tests Test 11/29/17 11:30 White Blood Count 13.0 TH/MM3 (4.0-11.0) Red Blood Count 4.52 MIL/MM3 (4.00-5.30) Hemoglobin 12.2 GM/DL (11.6-15.3) Hematocrit 37.0 % (35.0-46.0) Mean Corpuscular Volume 81.7 FL (80.0-100.0) Mean Corpuscular Hemoglobin 27.0 PG (27.0-34.0) Mean Corpuscular Hemoglobin Concent 33.0 % (32.0-36.0) Red Cell Distribution Width 15.5 % (11.6-17.2) Platelet Count 406 TH/MM3 (150-450) Mean Platelet Volume 8.0 FL (7.0-11.0) Neutrophils (%) (Auto) 79.0 % (16.0-70.0) Lymphocytes (%) (Auto) 7.9 % (9.0-44.0) Monocytes (%) (Auto) 10.9 % (0.0-8.0) Eosinophils (%) (Auto) 1.3 % (0.0-4.0) Basophils (%) (Auto) 0.9 % (0.0-2.0) Neutrophils # (Auto) 10.2 TH/MM3 (1.8-7.7) Lymphocytes # (Auto) 1.0 TH/MM3 (1.0-4.8) Monocytes # (Auto) 1.4 TH/MM3 (0-0.9) Eosinophils # (Auto) 0.2 TH/MM3 (0-0.4) Basophils # (Auto) 0.1 TH/MM3 (0-0.2) CBC Comment AUTO DIFF Differential Total Cells Counted 100 Neutrophils % (Manual) 77 % (16-70) Band Neutrophils % 2 % (0-6) Lymphocytes % 6 % (9-44) Monocytes % 6 % (0-8) Eosinophils % 3 % (0-4) Neutrophils # (Manual) 11.1 TH/MM3 (1.8-7.7) Metamyelocytes 3 % (0-1) Myelocytes 3 % (0-0) Differential Comment FINAL DIFF MANUAL Toxic Granulation 1+ (NORMAL) Platelet Estimate NORMAL (NORMAL) Platelet Morphology Comment NORMAL (NORMAL) Blood Urea Nitrogen 15 MG/DL (7-18) Creatinine 0.77 MG/DL (0.50-1.00) Random Glucose 74 MG/DL (74-106) Calcium Level 8.2 MG/DL (8.5-10.1) Sodium Level 139 MEQ/L (136-145) Potassium Level 5.4 MEQ/L (3.5-5.1) Chloride Level 102 MEQ/L (98-107) Carbon Dioxide Level 28.8 MEQ/L (21.0-32.0) Anion Gap 8 MEQ/L (5-15) Estimat Glomerular Filtration Rate 73 ML/MIN (>89) Result Diagram: 11/29/17 1130 11/29/17 1130 Elvira Tam November 29, 2017 15:45
--- NOTE | 2017-11-29 16:18 | MB ---
cc: Elvira Tam DATE: 11/29/2017 HISTORY OF PRESENT ILLNESS: A 76-year-old patient of Dr. Lozano, Dr. Peña, and Dr. Jeimy Fontenot, who underwent workup for chest pain. She was recently admitted back 10/03/2017 with an acute CVA. Symptoms included aphasia and dysarthria. She received TPA on 10/03/2017 with very mild residual weakness in her upper extremities. Occasionally, her speech gets a little slurred when she is anxious. She underwent nuclear stress test, which was unremarkable, but continued to have midsternal chest pain with exertion. She has associated some diaphoresis and shortness of breath. Cardiac catheterization today by Dr. Peña revealed EF of 55%, left main disease of 70%, proximal LAD 10%, mid distal LAD 40%, diagonal 30%. We were consulted to evaluate for coronary artery bypass graft x 2 to the LAD and the obtuse marginal. PAST MEDICAL HISTORY: Includes asthma; she uses a nebulizer at home. Coronary artery disease of the eagle coronaries. She has diabetes mellitus, on insulin. Hypertensive heart disease, murmur, obesity, peptic ulcer disease. She had an acute CVA 10/03/2017, received TPA. Also, arthritis. PAST SURGICAL HISTORY: Include bowel resections. She has bowel surgery x 7 in the past. Her most recent was in 2016 where she had a colostomy, which has since been reversed. Hernia repair. Hysterectomy. She has had knee surgery. PTCA. She had a stent to the RCA in 2009. ALLERGIES: INCLUDE FISH CONTAINING PRODUCTS, MERCURY, SULFA, EGG, ERYTHROMYCIN, IODINE, METFORMIN, MORPHINE, PENICILLIN, POTASSIUM IODIDE. HOME MEDICATIONS: Include: 1. Felodipine 10 mg p.o. daily. 2. Zetia 10 p.o. daily. 3. Symbicort 2 puffs daily. 4. Lantus insulin 65 units subcutaneous daily b.i.d. 5. Xanax 0.25 p.r.n. for anxiety. 6. Levothyroxine 150 mcg daily. 7. Celexa 40 mg p.o. daily. 8. Aspirin 325 daily. 9. Hydralazine 10 mg p.o. daily. 10. Hydrocodone p.r.n. for pain. 11. Ambien p.r.n. for sleep. 12. Plavix 75 mg p.o. daily. FAMILY HISTORY: Father following heart surgery. SOCIAL HISTORY: The patient is , 4 children. Rare alcohol. No tobacco abuse. REVIEW OF SYSTEMS: GENERAL: No night sweats, fever, heat and cold intolerance. SKIN: No psoriasis, itching or hives. HEENT: No blurred vision or hearing loss. RESPIRATORY: Positive for recent shortness of breath. CARDIOVASCULAR: As above in the HPI. GASTROINTESTINAL: No diarrhea or vomiting. GENITOURINARY: No burning, frequency or urgency. CENTRAL NERVOUS SYSTEM: Positive for history of cerebrovascular accident/transient ischemic attack. ENDOCRINOLOGY: Positive for diabetes. Positive for hypothyroidism. PHYSICAL EXAMINATION: VITAL SIGNS: Blood pressure 176/90, heart rate of 68, afebrile. GENERAL: Patient is awake, alert, no acute distress. HEENT: Head is normocephalic, atraumatic. She does wear reading glasses. Oral mucosa pink, moist. Good dentition. NECK: Supple. No JVD. CARDIOVASCULAR: Heart sounds S1, S2. Regular rate and rhythm. No audible rubs, murmurs, or gallops. LUNGS: Clear to auscultation. No wheezes, rales or rhonchi. ABDOMEN: Obese, soft, nontender. She has multiple scarring under her abdomen. EXTREMITIES: Reveal trace edema with good distal pulses. SKIN: She has got some very dry scaly skin. LABORATORY DATA: Shows hemoglobin 12, hematocrit of 37, white cell count of 13, platelet count of 406. Sodium 139, potassium 5.4, BUN of 8, creatinine 15. INR is pending. IMAGING STUDIES: Chest x-ray, carotid ultrasound pending. ASSESSMENT AND PLAN: This is a 76-year-old female that has undergone cardiac catheterization with 2-vessel disease, will need bypass grafting to the left anterior descending and the obtuse marginal. Ejection fraction is normal at 55%. She has had a recent cerebrovascular accident/transient ischemic attack where she did receive TPA on 10/03. Dr. Talbot did speak with Dr. Peña that will give her 2 month period or 8-week period from her TPA dosing to undergo coronary artery bypass grafting. Procedures, alternatives and risks have been discussed with the patient. The patient is agreeable to proceed. We will plan for 12/13/2017. Further testing pending. MIKE Taylor MD JRT/KD , 03:38 PM , 04:17 PM
--- NOTE | 2017-11-29 16:29 | RADRPT ---
EXAM DATE: 11/29/2017 4:19 PM EDT AGE/SEX: 76 years / Female INDICATIONS: Evaluate for pneumonia, pneumothorax, or communicable diseases. Pre op CABG. CLINICAL DATA: This is the patient's initial encounter. Patient reports that signs and symptoms have been present for 1 day and indicates a pain score of 0/10. MEDICAL/SURGICAL HISTORY: . Diabetes mellitus type II. Hypertension Hypothyroidism. Hiatal andi ia . Hysterectomy. Colostomy. Cardiac stent COMPARISON: [facility] [place]ST SINGLE AP, 12/10/2016. . FINDINGS: A single AP view of the chest demonstrates the lungs to be symmetrically aerated without evidence of mass, infiltrate or effusion. . Mild cardiomegaly Osseous structures are intact. CONCLUSION: Mild compensated cardiomegaly Electronically signed by: Durga Carlson MD 11/29/2017 4:28 PM EDT
[2017-11-29 17:00] LABS: BILIRUBIN, URINE NEG (NEG); BLOOD, URINE NEG (NEG); GLUCOSE,URINE NEG (NEG); KETONE, URINE NEG (NEG); NITRITE,URINE NEG (NEG); SQUAMOUS EPITHELIAL CELL URINE <1 /hpf (0-5); URINE COLOR LIGHT-YELLOW (YELLW/STRAW); URINE LEUKOCYTE ESTERASE NEG (NEG)
[2017-11-29 18:23] LABS: PROTHROMBIN TIME - PATIENT 10.2 SEC (9.8-11.6)
--- NOTE | 2017-11-29 18:25 | RADRPT ---
EXAM DATE: 11/29/2017 6:21 PM EDT AGE/SEX: 76 years / Female INDICATIONS: Pre Op Cardiac. CLINICAL DATA: This is the patient's initial encounter. Patient reports that signs and symptoms have been present for 1 day and indicates a pain score of 5/10. MEDICAL/SURGICAL HISTORY: Gastroesophageal reflux disease. Hypercholesterolemia. Hypothyroidis m. Cerebrovascular accident. Myocardial infarction. Coronary artery disease. Asthma. Diverticulitis. Hiatal hernia. Fibromyalgia. Diabetes. . COMPARISON: No prior [facility] exams available for comparison. MEASUREMENTS: RIGHT THIGH: Proximal:__8 mm Mid:__ 5 mm Distal:__5 mm LEFT THIGH: Proximal:__6 mm Mid:__6 mm Distal:__5 mm RIGHT CALF: Proximal:__4 mm Mid:__2 mm Distal:__3 mm LEFT CALF: Proximal:__4 mm Mid:__2 mm Distal:__3 mm FINDINGS: The venous system of the lower extremities are patent by color Doppler imaging. Measurements of the leg veins (in mm) are listed above. CONCLUSION: 1. Lower extremity venous mapping, as above. Electronically signed by: Saud Mata MD 11/29/2017 6:23 PM EDT
[2017-11-29 18:26] LABS: ALKALINE PHOSPHATASE 84 U/L (45-117); TOTAL BILIRUBIN ADULT 0.3 MG/DL (0.2-1.0); TOTAL PROTEIN 7.5 GM/DL (6.4-8.2)
--- NOTE | 2017-11-29 18:31 | RADRPT ---
EXAM DATE: 11/29/2017 6:26 PM EDT AGE/SEX: 76 years / Female INDICATIONS: Pre Op Cardiac. CLINICAL DATA: This is the patient's initial encounter. Patient reports that signs and symptoms have been present for 1 day and indicates a pain score of 5/10. MEDICAL/SURGICAL HISTORY: Gastroesophageal reflux disease. Hypercholesterolemia. Hypothyroidis m. Cerebrovascular accident. Myocardial infarction. Coronary artery disease. Asthma. Diverticulitis. Hiatal hernia. Fibromyalgia. Diabetes. Hysterectomy. Total knee replacement, left. Total knee repl acement, right. Cardiac catheterization with stent. Colostomy. Reversal of colostomy. COMPARISON: No prior [facility] exams available for comparison. TECHNIQUE: Venous ultrasound of both lower extremities was performed from the inguinal ligament to t he proximal calf. Real-time, color Doppler and spectral tracing, compression and augmentation techni ques were used. FINDINGS: Right Leg: There is normal compressibility of the deep venous system from the inguinal region to the proximal calf. No echogenic clot is seen in the lumen of the common femoral, femoral, popliteal, an d posterior tibial veins. There is a normal response of the venous system to proximal and distal aug mentation and respiration. Left Leg: There is normal compressibility of the deep venous system from the inguinal region to the proximal calf. No echogenic clot is seen in the lumen of the common femoral, femoral, popliteal, and posterior tibial veins. There is a normal response of the venous system to proximal and distal augm entation and respiration. CONCLUSION: 1. No sonographic evidence for lower extremity DVT. Electronically signed by: Saud Mata MD 11/29/2017 6:29 PM EDT
--- NOTE | 2017-11-29 18:33 | RADRPT ---
EXAM DATE: 11/29/2017 6:30 PM EDT AGE/SEX: 76 years / Female INDICATIONS: Pre Op Cardiac. CLINICAL DATA: This is the patient's initial encounter. Patient reports that signs and symptoms have been present for 1 day and indicates a pain score of 5/10. MEDICAL/SURGICAL HISTORY: Gastroesophageal reflux disease. Hypercholesterolemia. Hypothyroidis m. Cerebrovascular accident. Myocardial infarction. Coronary artery disease. Asthma. Diverticulitis. Hiatal hernia. Fibromyalgia. Diabetes. Hysterectomy. Total knee replacement, right. Total knee rep lacement, left. Cardiac catheterization with stent. Colostomy. Reversal of colostomy. COMPARISON: No prior [facility] exams available for comparison. No external comparison. VELOCITY PARAMETERS: ICA/CCA Ratio: Right 1.5 , Left 1.0 ICA: Right 133 cm/sec, Left 121 cm/sec CCA: Right 91 cm/sec, Left 123 cm/sec ECA: Right 77 cm/sec, Left 109 cm/sec Vertebral: Right 51 cm/sec antegrade, Left 37 cm/sec antegrade FINDINGS: Right Carotid: Bulky calcified plaque extending from the carotid bulb to the internal carotid origin. The waveforms are within normal limits. Left Carotid: Eccentric calcified plaque extending from the carotid bulb to the internal carotid tahir gin. The waveforms are within normal limits. Other: None. CONCLUSION: 1. Right Internal Carotid Artery: Findings indicate 50-69% stenosis. 2. Left Internal Carotid Artery: Findings indicate <50% stenosis. Electronically signed by: Saud Mata MD 11/29/2017 6:32 PM EDT
[2017-11-29 18:36] LABS: ALBUMIN 3.1 GM/DL (3.4-5.0); ALT (GPT) 29 U/L (10-53); AST (GOT) 52 U/L (15-37); DIRECT BILIRUBIN ADULT LESS THAN 0.1 MG/DL (0.0-0.2); INDIRECT BILIRUBIN 0.2 MG/DL (0.0-0.8)
[2017-11-29 19:02] LABS: HEMOGLOBIN A1C 9.4 % (4.3-6.0)
--- NOTE | 2017-11-30 00:23 | MA ---
cc: Isidoro Peña DO DATE: 11/29/2017 DATE OF PROCEDURE: 11/29/2017. PROCEDURE: Left heart catheterization, coronary angiogram, moderate sedation 30 minutes, IVUS left main, Angio-Seal femoral arteriotomy site. PREPROCEDURE DIAGNOSIS: Chest pain/shortness of breath concerning for coronary insufficiency. POSTPROCEDURE DIAGNOSIS: Left main disease. MEDICATIONS: Versed 0.5 mg, fentanyl 150 mcg, heparin 6200 units. CONTRAST USED: 80 mL. FLUOROSCOPY: 6.6 minutes. MODERATE SEDATION: 30 minutes. FRAILTY SCORE: 4. ESTIMATED BLOOD LOSS: 10 mL. PROCEDURAL SUMMARY: Elidia Alford is a pleasant 76-year-old female who sees my partner, Dr. Lozano, in the office and underwent stress testing which was felt to be normal. She continued to have chest pain and shortness of breath which were concerning for coronary insufficiency, and so she was recommended cardiac catheterization for definitive diagnosis. Risks, benefits and alternatives were explained to her and she consented as such. As she had no IV access, right femoral vein was accessed using modified Seldinger technique and placement of a 5-Hungarian sheath. Right femoral artery was accessed using modified Seldinger technique and placement of a 5-Hungarian sheath. Both were easily aspirated and flushed. A JR4 was advanced over a J-wire to the ascending aorta and across the aortic valve for measurement of left ventricular pressure. This was pulled back across the aortic valve, showing no significant gradient of aortic stenosis. JR4 was used for selective angiography of the right coronary artery system. This was exchanged out for a JL4, which was used for selective angiography of the left coronary artery system. As there was significant concern for dampening as well as what appears to be ostial left main disease, I felt that further evaluation of the left main needed to be done at this time. The 5-Hungarian sheath was exchanged for a 6-Hungarian sheath. The patient was given heparin as an anticoagulant. A JL4 guide was engaged into the left main. A BMW wire was advanced into the LAD. IVUS catheter was advanced into the LAD and recordings were done on pullback throughout the left main with the guide disengaged from the left main. Final angiogram shows no disruption of the coronary anatomy. Right femoral artery was closed with an Angio-Seal. Right femoral vein will plan to be removed once ACT value is appropriate and pressure held for hemostasis. The patient left the laborer shaft sinking cardiovascularly stable. FINDINGS: Left main: Overall short vessel with 70 percent stenosis in the ostial portion. IVUS measurements of 5.4 mm2 and 5.6 mm2, showing significant stenosis. It bifurcates into an LAD and circumflex. LAD: Normal-sized vessel with mild luminal irregularities throughout the proximal portion. Mid portion has diffuse 40% disease. It gives off 2 major diagonals with no significant disease. Left circumflex: Normal-sized vessel with mild luminal irregularities throughout. It gives off 1 major obtuse marginal, which has 20% throughout. RCA: Small to ____-sized vessel. Stent is noted in the proximal portion and is patent with no significant disease. Overall, it appears to be oversized compared to the rest of the vessel. Distal to the stent, there is a stepdown and may have 30% disease. Distally, it supplies the PDA with no significant disease. LVEDP 14. IMPRESSION: 1. Chest pain/shortness of breath concerning for coronary insufficiency. 2. Significant left main disease. RECOMMENDATIONS: 1. Ms. Alford appears to have left main disease, and she will be recommended evaluation by CT surgery for consideration of coronary artery bypass grafting. 2. She recently had a TIA around 6-8 weeks ago, and this was discussed with Dr. Talbot, and overall, believe that it would be in her best bet to bypass in a week or two to allow her to fully heal from this. 3. I discussed with her that if she has significant chest pain or shortness of breath, that she report back to the emergency room immediately. Thank you for allowing me to see Elidia Alford. If there are any questions, please do not hesitate to call. DO INEZ Orr/ELICEO , 11:43 PM , 12:22 AM
--- NOTE | 2017-11-30 14:56 | EKG ---
Date Performed: 11/29/2017 Time Performed: 11:50:00 PTAGE: 76 years EKG: Sinus rhythm . IV conduction defect Artifact is present limiting accurate interpretation Abnormal ECG PREVIOUS TRACING : 10/03/17 DOCTOR: Anjum Patterson Interpretating Date/Time 11/30/2017 14:54:40
--- NOTE | 2017-12-04 09:10 | RSPPFT ---
DATE OF PROCEDURE: 11/29/17 COMMENTS: Spirometry demonstrates an FEV1 of 1.1 at 67% of predicted, FVC of 1.5 at 71%, FEV1/FVC ratio is 75%. The FEF 25-75 is 55% of predicted. Post-bronchodilator study was not done. Flow volume loop suggests a restrictive defect. IMPRESSION: 1. Mild to moderate obstructive disease. 2. Additional mild restrictive disease.
== END 2017-11-29 18:28 | disposition home or self-care (01) ==
LOC: HDOC 10:58 → HDIC 10:58 → HDOC 18:28
PROVIDERS: ATTEND Nuclear Medicine Nuclear Cardiology
DX: R07.9 Chest pain, unspecified (principal); Z86.73 Personal history of transient ischemic attack (TIA), and cerebral infarction without residual deficits; R06.02 Shortness of breath; E03.9 Hypothyroidism, unspecified; I10 Essential (primary) hypertension; E11.9 Type 2 diabetes mellitus without complications; K44.9 Diaphragmatic hernia without obstruction or gangrene; Z95.5 Presence of coronary angioplasty implant and graft; K21.9 Gastro-esophageal reflux disease without esophagitis; E78.00 Pure hypercholesterolemia, unspecified; I25.2 Old myocardial infarction; I25.10 Atherosclerotic heart disease of native coronary artery without angina pectoris; J45.909 Unspecified asthma, uncomplicated; M79.7 Fibromyalgia; I65.23 Occlusion and stenosis of bilateral carotid arteries; R94.31 Abnormal electrocardiogram [ECG] [EKG]; Z79.899 Other long term (current) drug therapy; Z79.01 Long term (current) use of anticoagulants; Z79.4 Long term (current) use of insulin
CPT/HCPCS: 71045; 80048; 80076; 81001; 83036; 85002; 85007; 85027; 85610; 85730; 86850; 86900; 86901; 87641; 92978; 93005; 93458; 93880; 93970; 93998; 94010; 99152; 99153; C1753; C1769; C1887; C1893; G0269; J1200; J1644; J2250; J2930; J3010; Q9967

== ENCOUNTER 2017-12-13 05:39 | Inpatient (IN) | payer MEDICARE, BC ==
[2017-12-13] VITALS (16 sets, daily range): BP systolic 102–147; BP diastolic 50–67; PULSE 52–71; RESP 16–22; TEMP 96–98.1; O2SAT 93–98
[~2017-12-13] VITALS: Ht 162.6 cm; Wt 109.0 kg
[~2017-12-13 05:39] MED LIST changes: -ALBUAER3 INH; +GABA300C5 PO; +HYDR-3111 PO; -HYDR-3288 PO; -ISOS30TA3 PO; -METO1TAB9 PO; +ZOLP5TAB3 PO; +zyrtec
[2017-12-13] MEDS ORDERED: SODIUM CHLORIDE 0.9% FLUSH 10 ML FLUSH IV FLUSH PRN ×3 (06:30→11:45)
[2017-12-13] MEDS ORDERED: METOPROLOL TARTRATE 25 MG TAB PO SCH (06:30)
[2017-12-13] MEDS ORDERED: SODIUM CHLORIDE IRRIGATION SCH ×4 (06:30)
[2017-12-13] MEDS ORDERED: CHLORHEXIDINE GLUCONATE 4% SOLN 120 ML BTL TOPICAL SCH (06:30)
[2017-12-13] MEDS ORDERED: CHLORHEXIDINE GLUCONATE 2 % 1 PACK (2 CLOTHS) TOPICAL PRN (06:30)
[2017-12-13] MEDS ORDERED: VANCOMYCIN 1000 MG in NS IRR BTL 1000 ML IRRIGATION SCH (06:30)
[2017-12-13] MEDS ORDERED: SODIUM CHLORID 0.9% 500 ML IV PRN (06:30)
[2017-12-13] MEDS ORDERED: DEXTROSE 50% IN WATER 50 ML VIAL(D50) IV PUSH PRN ×2 (06:30→11:45)
[2017-12-13] MEDS ORDERED: LACTATED RINGER'S 1000 ML IV PRN (06:30)
[2017-12-13] MEDS ORDERED: PAPAVERINE IRRIGATION SCH ×4 (06:30)
[2017-12-13] MEDS ORDERED: VERAPAMIL 100 MG IRRIGATION SCH ×4 (06:30)
[2017-12-13] MEDS ORDERED: NITROGLYCERIN IRRIGATION SCH ×4 (06:30)
[2017-12-13] MEDS ORDERED: INSULIN REGULAR 100 UNITS in NS 100 ML IV PRN (06:30)
[2017-12-13] MEDS ORDERED: VANCOMYCIN HCL 1000 MG VIAL ONE ×2 (06:39→07:46)
[2017-12-13] MEDS ORDERED: HEPARIN SODIUM - SQ 10,000 UNITS/ML VIAL ONE (06:39)
[2017-12-13] MEDS ORDERED: SODIUM CHLOR 0.9% 250 ML INJ 250 ML ONE (07:46)
[2017-12-13] MEDS ORDERED: LACTATED RINGER'S 1000 ML INJ 500 ML IV PRN (11:34)
[2017-12-13] MEDS ORDERED: POTASSIUM CHLOR 20 MEQ PREMIX 100 ML IV PRN ×3 (11:45)
[2017-12-13] MEDS ORDERED: ACETAMINOPHEN 650 MG SUPP RECTAL PRN (11:45)
[2017-12-13] MEDS ORDERED: CALCIUM CHLORIDE 10% 1 GRAM/10 ML VIAL IV PUSH PRN (11:45)
[2017-12-13] MEDS ORDERED: MEPERIDINE HCL 25 MG/ML VIAL IV PUSH PRN (11:45)
[2017-12-13] MEDS ORDERED: METOPROLOL TARTRATE 5 MG/5 ML VIAL IV PUSH PRN (11:45)
[2017-12-13] MEDS ORDERED: SODIUM BICARBONATE 8.4% SOLN 50 MEQ/50 ML VIAL IV PUSH PRN ×2 (11:45)
[2017-12-13] MEDS ORDERED: MAGNESIUM SULFATE INJ 2 GM in SODIUM CHLORIDE 0.9% INJ 100 ML IV PRN ×4 (11:45)
[2017-12-13] MEDS ORDERED: CLEVIDIPINE INJ 50 ML IV PRN (11:45)
[2017-12-13] MEDS ORDERED: RESP: RACEPINEPHRINE 2.25% 0.5 ML NEB NEB PRN (11:45)
[2017-12-13] MEDS ORDERED: ALBUMIN 5% INJ 250 ML IV PRN (11:45)
[2017-12-13] MEDS ORDERED: INSULIN REGULAR (IV INFUSION) 100 UNITS in SODIUM CHLORIDE 0.9% INJ 99 ML IV PRN (11:45)
[2017-12-13] MEDS ORDERED: RESP: ALBUTEROL 2.5 MG/IPRATROPIUM 0.5 MG NEB (PRN) NEB (11:45)
[2017-12-13] MEDS ORDERED: ACETAMINOPHEN 325 MG TAB PO PRN (11:45)
[2017-12-13] MEDS ORDERED: Post-op Orders (for Pharmacy) OTHER ONE (11:45)
[2017-12-13] MEDS ORDERED: POTASSIUM CHLORIDE 20 MEQ CONTROLLED RELEASE TAB PO PRN ×2 (11:45)
--- NOTE | 2017-12-13 11:47 | PD.OP ---
cc: Adolfo Talbot MD; Isidoro Peña DO Operative Report Date of Surgery: Dec 13, 2017 Preoperative Diagnosis: Postoperative Diagnosis: Procedure: 1. Off-pump Coronary Artery Bypass Grafting x 2 with Left Internal Mammary Artery (MARIE) to Left Anterior Descending (LAD), reverse saphenous vein graft to Obtuse Marginal 1 (OM1) 2. Left Leg Endoscopic Vein [place] 3. Intraoperative Vein Mapping. Surgeon: Adolfo Talbot Curtain Cleaner(s): Dee Dee Hsieh Operation and Findings: PREPROCEDURE DIAGNOSES 1. Severe Left Main Coronary Artery Disease. 2. Diabetes mellitus POSTPROCEDURE DIAGNOSES Same SURGICAL PROCEDURE 1. Off-pump Coronary Artery Bypass Grafting x 2 with Left Internal Mammary Artery (MARIE) to Left Anterior Descending (LAD), reverse saphenous vein graft to Obtuse Marginal 1 (OM1) 2. Left Leg Endoscopic Vein [place] 3. Intraoperative Vein Mapping. SURGEON Adolfo Talbot MD RUG TOUCH UP PAINTER KELY Albright ANESTHESIA General endotracheal CLINICAL LABORATORY MEDICAL DIRECTOR HO Clayton MD PREPARATION ChloraPrep. COUNTS Needle, sponge, and instrument counts were correct. DRAINS Two 32-Greek mediastinal tubes. COMPLICATIONS None. INDICATIONS FOR PROCEDURE The patient is a 76-year-old female presenting with chest pain. Patient was noted to have left main coronary artery disease. The patient is being brought to the operating room for surgical revascularization therapy. PROCEDURE Patient was brought to the operating room and placed supine on the OR table. Following the induction of adequate general endotracheal anesthesia and placement of appropriate monitoring devices, intraoperative vein mapping was performed which revealed suitable-caliber conduit in bilateral thighs. The patient was then prepped and draped in standard sterile fashion. Next, 2500 units of intravenous heparin was given. The left greater saphenous vein was harvested endoscopically. This appeared to be a useable-caliber conduit. Simultaneously, a median sternotomy was performed and the left internal mammary artery dissected free off the posterior sternal table. The patient was systemically heparinized and anticoagulation monitored by serial ACT measurements. The internal mammary artery had good pulsatile flow in it and was a small-caliber conduit. The pericardium was then divided in the midline, the cradle created and targets analyzed. At this point, all anastomoses were performed in a beating-heart fashion using the Maquet stabilizing system. The left internal mammary artery was anastomosed to the mid LAD (2 mm) in an end-to- side fashion using 7-0 Prolene. Segment of saphenous vein graft was then anastomosed to the OM1 (1.5 mm) in an end-to-side fashion using 7-0 Prolene. The proximal anastomosis was then constructed to the ascending aorta in a running manner using 6-0 Prolene. All anastomotic sites were inspected and appeared to be hemostatic and patent. Protamine solution was given. Strict hemostasis was assured. The closure was undertaken. 2 chest tubes were placed. The pericardium was reapproximated in the midline. The sternum was approximated using sternal wires. The muscular and fascial layer were then closed in 3 layers. The endoscopic vein harvest site was closed in 2 layers. The patient tolerated the procedure well and was transferred to CVICU in stable condition. Adolfo Talbot MD Dec 13, 2017 11:47
[2017-12-13] MEDS ORDERED: AMINOCAPROIC ACID INJ 250 MG/ML 20 ML VIAL IV ONE (12:00)
[2017-12-13] MEDS ORDERED: SODIUM CHLORID 0.9% 500 ML INJ 500 ML IV ONE (12:00)
[2017-12-13] MEDS ORDERED: LABETALOL HCL 100 MG/20 ML VIAL IV ONE (12:00)
[2017-12-13] MEDS ORDERED: PROTAMINE SULFATE 250 MG/25 ML VIAL IV ONE (12:00)
[2017-12-13] MEDS ORDERED: DEXMEDETOMIDINE HCL 200 MCG/2 ML VIAL IV ONE (12:00)
[2017-12-13] MEDS ORDERED: LACTATED RINGER'S 1000 ML INJ 2,000 ML IV ONE (12:00)
[2017-12-13] MEDS ORDERED: SODIUM CHLOR 0.9% 250 ML INJ 250 ML IV ONE (12:00)
[2017-12-13] MEDS ORDERED: ePHEDrine/NS 25 MG/5 ML SYRINGE IV ONE (12:00)
[2017-12-13] MEDS ORDERED: NS 100 ML (PAB BAG) 200 ML IV ONE (12:00)
[2017-12-13] MEDS ORDERED: PHENYLEPH/NS 1000 MCG/10 ML SYR IV ONE (12:00)
[2017-12-13] MEDS ORDERED: GLYCOPYRROLATE 0.2 MG/ML VIAL IV ONE (12:00)
[2017-12-13] MEDS ORDERED: VECURONIUM BROMIDE 20 MG VIAL IV ONE (12:00)
[2017-12-13] MEDS ORDERED: MAGNESIUM SULFATE 1 GM/2 ML VIAL IV ONE (12:00)
[2017-12-13] MEDS ORDERED: HEPARIN SODIUM - SQ 10,000 UNITS/ML VIAL OTHER ONE (12:00)
[2017-12-13] MEDS ORDERED: NORMOSOL R INJ 2,000 ML IV ONE (12:00)
[2017-12-13] MEDS ORDERED: NITROGLYCERIN-D5W 50 MG/250 ML 250 ML IV PRN (12:15)
[2017-12-13] MEDS ORDERED: PHENYLEPHRINE INJ 40 MG in DEXTROSE 5% IN WATE 500 ML INJ 496 ML IV PRN ×2 (12:15)
--- NOTE | 2017-12-13 12:27 | PD.CAR.PN ---
CVT Progress Note Subjective/Hospital Course: 76-year-old patient of Dr. Lozano, Dr. Peañ, and Dr. Jeimy Fontenot , intially seen 11/29/17 . Recent workup for chest pain. She also recently admitted back 10/03/2017 with an acute CVA. Symptoms included aphasia and dysarthria. She received TPA on 10/03/2017 with very mild residual weakness in her upper extremities. Occasionally, her speech gets a little slurred when she is anxious. She underwent nuclear stress test, which was unremarkable, but continued to have midsternal chest pain with exertion. She has associated some diaphoresis and shortness of breath. Cardiac catheterization today by Dr. Peña revealed EF of 55%, left main disease of 70%, proximal LAD 10%, mid distal LAD 40%, diagonal 30%. We were consulted at that time to evaluate for coronary artery bypass graft x 2 to the LAD and the obtuse marginal. PAST MEDICAL HISTORY: Includes asthma; she uses a nebulizer at home. Coronary artery disease of the [place] coronaries. She has diabetes mellitus, on insulin. Hypertensive heart disease, murmur, obesity, peptic ulcer disease. She had an acute CVA 10/03/2017, PAST SURGICAL HISTORY: Include bowel resections. She has bowel surgery x 7 in the past. Her most recent was in 2016 where she had a colostomy, which has since been reversed. 12/13 pt electively admitted for surgery surgery: 1. Off-pump Coronary Artery Bypass Grafting x 2 with Left Internal Mammary Artery (MARIE) to Left Anterior Descending (LAD), reverse saphenous vein graft to Obtuse Marginal 1 (OM1) 2. Left Leg Endoscopic Vein [place] 3. Intraoperative Vein Mapping. Objective: Vital Signs Date Time Temp Pulse Resp B/P (MAP) Pulse Ox O2 Delivery O2 Flow Rate FiO2 12/13/17 06:47 98.6 73 20 159/69 (99) 95 (1) S/P CABG x 2 (2) History of CVA (cerebrovascular accident) (3) DM (diabetes mellitus screen) (4) Hypertension (5) COPD (chronic obstructive pulmonary disease) (6) Hyperlipidemia (7) Hypothyroidism (8) Coronary artery disease Elvira Tam Dec 13, 2017 12:26
[2017-12-13] MEDS ORDERED: MIDAZOLAM HCL 2 MG/2 ML VIAL ONE (12:28)
[2017-12-13] MEDS ORDERED: fentaNYL CITRATE 250 MCG/5 ML AMP ONE (12:28)
[2017-12-13] MEDS ORDERED: DOPamine 800 MG/500 ML INJ 500 ML IV PRN (12:45)
[2017-12-13] MEDS ORDERED: RASS Change Order XX ONE (12:45)
[2017-12-13] MEDS ORDERED: DOBUTamine PREMIX DRIP 250 ML IV PRN (12:45)
[2017-12-13] MEDS ORDERED: DEXMEDETOMIDINE INJ 200 MCG in SODIUM CHLORIDE 0.9% INJ 50 ML IV PRN (12:45)
--- NOTE | 2017-12-13 12:53 | RADRPT ---
EXAM DATE: 12/13/2017 12:49 PM EDT AGE/SEX: 76 years / Female INDICATIONS: Status post CABG. CLINICAL DATA: This is the patient's initial encounter. Patient reports that signs and symptoms have been present for 1 day and indicates a pain score of Nonresponsive. MEDICAL/SURGICAL HISTORY: Diabetes mellitus type II. Hypertension. Hypothyroidism. Hiatal he rnia. Hysterectomy. Colostomy. cardiac stent. COMPARISON: No prior exams available for comparison. FINDINGS: Endotracheal tube in good position. Nasogastric tube loops back on itself from the stomach and the ti p is in the upper esophagus. This should be repositioned. Central and left chest tube present. Bilate ral mostly basilar and perihilar atelectasis. Right central line in superior vena cava. No significan t effusion. No pneumothorax. CONCLUSION: Nasogastric tube loops back on itself from the stomach with the tip in the upper esophagus. This shou ld be repositioned. Subsegmental basilar and perihilar airspace present, most characteristic of atelectasis. Electronically signed by: Krishna Abarca MD 12/13/2017 12:52 PM EDT
[2017-12-13] MEDS ORDERED: PHENYLEPHRINE HCL 10 MG/ML VIAL ONE ×2 (13:21)
--- NOTE | 2017-12-13 13:23 | HHI.FF ---
Face to Face Verification Diagnosis: (1) Coronary artery disease (2) History of CVA (cerebrovascular accident) (3) DM (diabetes mellitus screen) (4) Hypothyroidism (5) Hypertension (6) COPD (chronic obstructive pulmonary disease) (7) Hyperlipidemia (8) S/P CABG x 2 Physical Therapy Order: Evaluate and Treat Home Health Nursing Order: Signs/symptoms of disease process Diabetic education Medication education-adverse effect Wound care and dressing changes Nursing assessment with vital signs Instructions: Heart and Vascular Surgery patients *Special attention to sternal dressing Mandatory frequency Assess and evaluation, 4 days in a row The next week 3X week 2 times a week for 4 weeks 1 time a week for 5 weeks Schedule Heart and Vascular patients for full 60 day certification period Initial visit Review Open Heart Surgery Discharge Instructions (Sternal precautions, Activity, Elastic hose, Incision care, Driving, Incentive spirometry, Smoking, [place], Work and other) Need Betadine to paint incision Medication reconciliation Importance of follow up care/ check on appointments Make calendar record temperature daily When to call [facility] [place] nurse, review instructions, phone list Incentive Spirometry, demonstration Visit 1- Begin discharge instruction for patient family and/ or caregiver using teach back method- Signs and symptoms of infection Disease characteristics Medicines and side effects Foods and nutrition/ appetite Infection control/ hand washing/ hygiene Visit 2- Continue teaching Discharge instructions- include additional information on smoking cessation , sternal dressing (sternal vac) Visit 3- Continue teaching- Cough and deep breathing, incision monitoring. Choose my plate Visit 4- Continue teaching- Discuss limitations Discuss how they are feeling Discuss progress toward goals Remaining visits- continue teaching and monitoring For any questions please call : Monday 8am-5pm Heart & Vascular Surgery Office ( Dr. Talbot & Dr. Echols), After Hours / Nights (5pm -8am) Weekends and Holidays Please call [facility] Cardiac Intermediate Care Unit (CIC) Charge Nurse PREVENA Single Use Negative Wound Therapy System Caregiver Instruction Sheet 1. A Prevena dressing system was applied to the chest incision during surgery , to promote wound healing. It works via a suction device (negative pressure wound therapy) to remove low to moderate levels of exudate (drainage) and infectious materials. We recommend that the device stay in place for up to seven days, from day of surgery. 2. Day of Surgery____/ Day of Removal ___12/20/17 3. The dressing should only be removed by a health senior care specialist. Please arrange removal of device to coincide with Home Health visit and or with Nursing staff at Rehab 4. If skin reddening or irritation of skin occurs, or excessive drainage, please notify the Cardiovascular Surgeons office at [phone]. 5. Light showering is permissible; however the pump should be disconnected and placed in safe location, where it will not get wet. The dressing should not be exposed to direct spray or submerged in water. No bath tub / shower only. Ensure the end of the tubing attached to the dressing is facing down so that water does not enter the top of the tube. 6. To remove Prevena dressing: press purple button to turn off device / remove the suction. Then disconnect the tubing from the pump. The fixation strips should be stretched away from the skin and the dressing lifted at one corner and peeled back until it has been fully removed. 7. After removal, it is ok to shower daily using liquid dial soap and clean wash cloth, rinse and pat dry, and leave incision open to air dry. For any concerns regarding Prevena dressing, and or wounds, please contact Darlene Mckeon, patient navigator at [phone] or notify the Cardiovascular Surgeons office at [phone]. Incentive spirometry Q1 hr x 10, while awake, also use acapella device hourly whole awake Sternal Breast Bone Precautions: NO pushing or pulling, ( pt must use sternal pillow to support chest with all activities and with coughing ( takes up to 3 months breast bone to heal ) All females to wear sternal bra , launder as needed Daily incision care: ok to shower daily, no tub bath. Wash all incisions with liquid dial soap, clean wash cloth to each site, rinse and pat dry. Observe for any signs of infection, such as drainage which is dark yellow, [place], green or foul smelling. Immediately report to the surgeon any drainage from the chest incision, or legs, and for any abnormal drainage from the chest tube sites. Notify surgeon if any temp >101.5 degrees F. When specialty dressing removed/ or if you do not have one, continue to shower daily as above, then rinse and pat incision dry and paint with betadine daily x 5 days. Allow steri strips to fall off if you have any. Avoid lotions, creams, salves, oils, etc. for the first month Please see attached forms for additional instructions regarding post Open Heart specialty wound vacuum dressings. IGNACIO or Prevena , Dressing to be removed by Nursing staff on __12/20/17 F/U appointment: as per DC instructions: PCP in 2 weeks, CV surgeon 2 weeks, Shredder Picker 3-4 weeks For any questions regarding incisions/ dressing / meds / post op care or above Symptoms, Monday 8am-5pm Heart & Vascular Surgery Office ( Dr. Talbot & Dr. Echols), After Hours / Nights (5pm -8am) Weekends and Holidays Please call [facility] Cardiac Intermediate Care Unit (CIC) Charge Nurse I have seen patient Elidia Alford on 12/13/17. My clinical findings support the need for the requested home health care services because: Deconditioned w/ increased weakness I certify that my clinical findings support that this patient is homebound because: Post-op weakness Elvira Tam Dec 13, 2017 13:23
[2017-12-13] MEDS: CALCIUM CHLORIDE INJ 1 GM in SODIUM CHLORIDE 0.9% INJ 100 ML IV PRN ×2 (13:45→14:41)
[2017-12-13] MEDS: ACETAMINOPHEN 1000 MG/100 ML 100 ML IV SCH ×2 (13:45→18:15)
[2017-12-13] MEDS: RESP: ALBUTEROL 2.5 MG/IPRATROPIUM 0.5 MG NEB (SCH) NEB ×2 (15:46→22:10)
--- NOTE | 2017-12-13 19:34 | PD.CONS ---
[facility] Service Critical Care Medicine Consult Requested By Dr. Talbot Reason for Consult perioperative management of medical comorbidities Primary Care Physician Jeimy Fontenot MD History of Present Illness This is a 76-year-old female with a history of COPD and coronary artery disease who underwent off-pump coronary artery bypass grafting 2 today. Immediately postoperatively, she had difficulty weaning from mechanical ventilation. In addition her lactate is risen from 2-4.1. She is already received 900 cc crystalloid resuscitation as well as 250 cc 5% albumin. When I evaluated the patient and her chest tubes are dry, she is making adequate urine, her hemodynamics were stable. She is arousing from anesthesia and following week commands. No additional information is available from the patient due to her mental status and intubation. The remainder of the history is obtained from Dr. Talbot and the medical record. Review of Systems ROS Limitations: Clinical Condition, Intubated Past Family Social History Allergies: Coded Allergies: Fish Containing Products (Verified Allergy, Severe, HIVES, 12/13/17) Sulfa (Sulfonamide Antibiotics) (Verified Allergy, Severe, STOPS BREATHING , "SULFA POISONING", 12/13/17) egg (Verified Allergy, Severe, DYSPNEA, SWELLING, 12/13/17) WHEN MIXED WITH CULTURES FOR IMMUNIZATIONS erythromycin base (Verified Allergy, Severe, HIVES, TROUBLE BREATHING, ) iodine (Verified Allergy, Severe, SWELLING, 12/13/17) mold (Verified Allergy, Severe, ITCHING, 12/13/17) DYSPNEA penicillin G (Verified Allergy, Severe, STOPS BREATHING, 12/13/17) potassium iodide (Verified Allergy, Severe, SWELLING, 12/13/17) povidone-iodine (Verified Allergy, Severe, SWELLING, 12/13/17) sodium iodide (Verified Allergy, Severe, SWELLING, 12/13/17) sodium iodide (Verified Allergy, Severe, SWELLING, 12/13/17) metformin (Verified Adverse Reaction, Severe, DIARRHEA, GASTRIC CRAMPING, 12/13/17) morphine (Verified Adverse Reaction, Unknown, STATES MAKES HER "TOO SLEEPY " - REFUSES, 12/13/17) Uncoded Allergies: MERCURY (Allergy, Severe, 09/10/16) Past Medical History COPD Coronary artery disease Diabetes Hypertension Obesity Peptic ulcer disease Acute CVA October 2017 status post systemic TPA Arthritis Past Surgical History Bowel resection Bowel surgery 7 Colostomy in 2016 Hernia repair Hysterectomy Knee surgery PTCA Stent to the RCA 2009 Reported Medications Xanax (Alprazolam) 0.25 Mg Tab 0.25 Mg PO Q6HR PRN Plavix (Clopidogrel Bisulfate) 75 Mg Tab 75 Mg PO DAILY [zyrtec] Zolpidem (Zolpidem Tartrate) 5 Mg Tab 5 Mg PO HS PRN Vicodin (Hydrocodone-Acetaminophen) 5-300 Mg Tab 1 Tab PO Q4H PRN Gabapentin 300 Mg Cap 300 Mg PO HS Humalog Inj (Insulin Human Lispro) 1,000 Unit/10 Ml Vial SQ ACHS PER SLIDING SCALE Potassium (Potassium Gluconate) 600 Mg (99 Mg) Tablet 595 Mg PO DAILY Vitamin B-12 (Cyanocobalamin) 500 Mcg Tab 500 Mcg PO DAILY Quinapril HCl 40 Mg Tablet 40 Mg PO BID Hydralazine HCl 10 Mg Tablet 10 Mg PO DAILY Aspirin 325 Mg Tab 325 Mg PO DAILY Citalopram (Citalopram Hydrobromide) 40 Mg Tab 40 Mg PO DAILY Levothyroxine (Levothyroxine Sodium) 150 Mcg Tab 150 Mcg PO DAILY Lantus Solostar Pen Inj (Insulin Glargine) 300 Unit/3 Ml Pen 65 Units SQ BID Symbicort Inh (Budesonide/Formoterol Fumarate) 160-4.5 Mcg/Act Aero 2 Puff INH DAILY Zetia (Ezetimibe) 10 Mg Tab 10 Mg PO DAILY Felodipine ER (Felodipine) 10 mg Tree 10 Mg PO DAILY Active Ordered Medications See MAR Family History Father of heart disease Social History Denies tobacco, rare EtOH Physical Exam Vital Signs Vital Signs Date Time Temp Pulse Resp B/P (MAP) Pulse Ox O2 Delivery O2 Flow Rate FiO2 12/13/17 18:22 97.9 12/13/17 17:46 97.1 62 20 123/56 (78) 98 113/63 (80) 12/13/17 15:55 98.1 12/13/17 15:50 97.8 65 16 138/59 (85) 93 147/67 (93) 12/13/17 15:30 95 50 12/13/17 15:01 97.9 12/13/17 15:00 71 12/13/17 14:47 97.3 60 16 117/53 (74) 93 12/13/17 13:00 52 12/13/17 12:55 96.0 12/13/17 12:45 80 12/13/17 12:12 94 100 12/13/17 06:47 98.6 73 20 159/69 (99) 95 Physical Exam GENERAL: Elderly appearing female, lying in bed, intubated, sedated HEENT: Normocephalic. Atraumatic. Pupils equal, round, reactive, conjugate. Mucous membranes are moist NECK: Trachea is midline. There is no JVD. CHEST: PSV 40 percent. Equal chest rise. Not tachypneic. 2 chest tubes exit subxiphoid with a minimal amount of sanguinous output. No air leak. Median sternotomy with wound VAC in place CARDIOVASCULAR: Normal rate, regular rhythm. Sinus. ABDOMEN: Obese, soft, nontender, nondistended. No guarding. MUSCULOSKELETAL: Pulses 2+. No peripheral edema. NEUROLOGICAL: RASS -2. Follows commands 4. Moves all extremities. No focal deficits. Assessment and Plan Assessment and Plan Assessment: 76yF POD 0 s/p off-pump CABG x 2 (MARIE-->LAD, SVG-->OM1). course is complicated by severe baseline COPD and difficulty weaning from mechanical ventilation. also, lactate is rising, likely secondary to intravascular volume depletion immediately post-operatively. will gently fluid resuscitate. clinically she is slowly improving. will continue PSV mode of ventilation and extubate when ready and clinically stable. trend lactates and uop closely. chest tubes appear dry; will monitor. COPD - continue to wean fio2 for goal spo2 > 90% - nebs - continue PSV 5/5/40% - will wean to extubate when ready: may take additional time given history of COPD s/p OPCABG x 2 (MARIE-->LAD, SVG-->OM1) - anticoagulation per Dr. Talbot - close monitoring of chest tube output - close uop monitoring Lactic Acidosis - likely secondary to intravascular volume depletion - 250cc 5% albumin iv x 1 - trend lactates HTN - hold antihypertensives immediately post op Critical care medicine will continue to follow while patient is in the CVICU. 1. Off-pump Coronary Artery Bypass Grafting x 2 with Left Internal Mammary Artery (MARIE) to Left Anterior Descending (LAD), reverse saphenous vein graft to Obtuse Marginal 1 (OM1) 2. Left Leg Endoscopic Vein [place] 3. Intraoperative Vein Mapping. Jim Gordon MD Dec 13, 2017 19:34
[2017-12-13] MEDS ORDERED: ZOLPIDEM TARTRATE 5 MG TAB PO PRN (21:00)
[2017-12-13] MEDS: VANCOMYCIN INJ 1,000 MG in SODIUM CHLOR 0.9% 250 ML INJ 250 ML IV SCH (21:36)
[2017-12-13] MEDS: GABAPENTIN 300 MG CAP PO SCH (21:36)
[2017-12-13] MEDS: AMIODARONE 200 MG TAB PO SCH (21:37)
[2017-12-13] MEDS: SODIUM CHLORIDE 0.9% FLUSH 10 ML FLUSH IV FLUSH SCH (21:37)
[2017-12-13] MEDS: HYDROmorphone HCL PF 0.5 MG/0.5 ML SYRINGE IV PRN (22:55)
[2017-12-14] VITALS (9 sets, daily range): BP systolic 106–169; BP diastolic 39–80; PULSE 64–86; RESP 18–24; TEMP 97.7–98.4; O2SAT 92–97
[2017-12-14] MEDS: ACETAMINOPHEN 1000 MG/100 ML 100 ML IV SCH ×2 (00:30→06:15)
[2017-12-14] MEDS: RESP: ALBUTEROL 2.5 MG/IPRATROPIUM 0.5 MG NEB (SCH) NEB ×3 (03:55→20:28)
[2017-12-14 05:06] LABS: HEMATOCRIT 25.7 % (35.0-46.0); HEMOGLOBIN 8.4 GM/DL (11.6-15.3); MEAN CELL VOLUME 82.1 FL (80.0-100.0); MEAN CORPUSCULAR HEMOGLOBIN 26.8 PG (27.0-34.0); MEAN CORPUSCULAR HGB CONC 32.7 % (32.0-36.0); MEAN PLATELET VOLUME 7.9 FL (7.0-11.0); PLATELET COUNT 274 TH/MM3 (150-450); RED BLOOD COUNT 3.13 MIL/MM3 (4.00-5.30); RED CELL DISTRIBUTION WIDTH 15.7 % (11.6-17.2); WHITE BLOOD COUNT 16.2 TH/MM3 (4.0-11.0)
[2017-12-14 05:35] LABS: BICARBONATE 22.9 MEQ/L (21.0-32.0); CALCIUM 8.2 MG/DL (8.5-10.1); CREATININE 0.94 MG/DL (0.50-1.00); MAGNESIUM 1.8 MG/DL (1.5-2.5)
--- NOTE | 2017-12-14 06:07 | RADRPT ---
EXAM DATE: 12/14/2017 5:51 AM EDT AGE/SEX: 76 years / Female INDICATIONS: Shortness of breath,possible pulmonary disease. CLINICAL DATA: This is the patient's subsequent encounter. Patient reports that signs and symptoms h ave been present for 2 days and indicates a pain score of 10/10. MEDICAL/SURGICAL HISTORY: Diabetes mellitus type II. Hypertension. Hypothyroidism. Hiatal he rnia. Coronary artery stent. Coronary artery stent. Colostomy. [place] [facility] [place]. . FINDINGS: Single AP view the chest. Endotracheal tube and nasogastric tube no longer seen. Right IJ central ehsan ous catheter, left-sided chest tube, and mediastinal drain remain in place. Persistent cardiac silhou ette enlargement. Mild patchy bilateral pulmonary opacity with increase of the left lung base. CONCLUSION: 1. Endotracheal tube and nasogastric tube no longer seen. 2. Increased left lower lobe atelectasis. Electronically signed by: Fredrick Albert MD 12/14/2017 6:06 AM EDT
[2017-12-14] MEDS: HYDROmorphone HCL PF 0.5 MG/0.5 ML SYRINGE IV PRN ×4 (06:21→20:19)
[2017-12-14] MEDS: PANTOPRAZOLE SOD 40 MG DELAYED RELEASE TAB PO SCH (06:21)
[2017-12-14] MEDS: LEVOTHYROXINE SODIUM 150 MCG TAB PO SCH (06:21)
[2017-12-14] MEDS ORDERED: INSULIN DETEMIR 100 UNITS/ML VIAL SQ ONE (10:00)
[2017-12-14] MEDS ORDERED: SOD PHOSPHATE/SOD BIPHOSPHATE (ADULT) ENEMA 133ML RECTAL PRN (10:00)
[2017-12-14] MEDS: INSULIN ASPART SUPPLEMENTAL SCALE SQ SCH ×4 (10:00→21:37)
[2017-12-14] MEDS ORDERED: BISACODYL 10 MG SUPP RECTAL PRN (10:00)
[2017-12-14] MEDS ORDERED: GLUCAGON 1 MG/ML VIAL OTHER PRN (10:00)
[2017-12-14] MEDS ORDERED: DEXTROSE 50% IN WATER 50 ML VIAL(D50) IV PUSH PRN (10:00)
[2017-12-14] MEDS: DOCUSATE SODIUM 100 MG CAP PO SCH ×2 (10:00→21:36)
[2017-12-14] MEDS: CITALOPRAM HYDROBROMIDE 40 MG TAB PO SCH (10:08)
[2017-12-14] MEDS: ASPIRIN 81 MG CHEW TAB PO SCH (10:08)
[2017-12-14] MEDS: EZETIMIBE 10 MG TAB PO SCH (10:09)
[2017-12-14] MEDS: AMIODARONE 200 MG TAB PO SCH ×2 (10:09→21:36)
[2017-12-14] MEDS: CLOPIDOGREL 75 MG TAB PO SCH (10:09)
[2017-12-14] MEDS: VANCOMYCIN INJ 1,000 MG in SODIUM CHLOR 0.9% 250 ML INJ 250 ML IV SCH ×2 (10:11→21:38)
[2017-12-14] MEDS: ONDANSETRON ODT 4 MG TAB PO PRN ×2 (12:44→19:49)
[2017-12-14] MEDS: KETOROLAC TROMETHAMINE 30 MG/ML (IVP) VIAL IV PUSH PRN ×2 (12:45→19:49)
[2017-12-14] MEDS ORDERED: POTASSIUM CHLORIDE 20 MEQ CONTROLLED RELEASE TAB PO ONE (14:30)
[2017-12-14] MEDS: METOPROLOL TARTRATE 25 MG TAB PO SCH ×2 (14:30→21:36)
[2017-12-14] MEDS ORDERED: FUROSEMIDE 40 MG/4 ML VIAL IV PUSH ONE (14:30)
--- NOTE | 2017-12-14 14:30 | PD.CAR.PN ---
CVT Progress Note Subjective/Hospital Course: 76-year-old patient of Dr. Lozano, Dr. Peña, and Dr. Jeimy Fontenot , intially seen 11/29/17 . Recent workup for chest pain. She also recently admitted back 10/03/2017 with an acute CVA. Symptoms included aphasia and dysarthria. She received TPA on 10/03/2017 with very mild residual weakness in her upper extremities. Occasionally, her speech gets a little slurred when she is anxious. She underwent nuclear stress test, which was unremarkable, but continued to have midsternal chest pain with exertion. She has associated some diaphoresis and shortness of breath. Cardiac catheterization today by Dr. Peña revealed EF of 55%, left main disease of 70%, proximal LAD 10%, mid distal LAD 40%, diagonal 30%. We were consulted at that time to evaluate for coronary artery bypass graft x 2 to the LAD and the obtuse marginal. PAST MEDICAL HISTORY: Includes asthma; she uses a nebulizer at home. Coronary artery disease of the [place] coronaries. She has diabetes mellitus, on insulin. Hypertensive heart disease, murmur, obesity, peptic ulcer disease. She had an acute CVA 10/03/2017, PAST SURGICAL HISTORY: Include bowel resections. She has bowel surgery x 7 in the past. Her most recent was in 2016 where she had a colostomy, which has since been reversed. 12/13 pt electively admitted for surgery surgery: 1. Off-pump Coronary Artery Bypass Grafting x 2 with Left Internal Mammary Artery (MARIE) to Left Anterior Descending (LAD), reverse saphenous vein graft to Obtuse Marginal 1 (OM1) 2. Left Leg Endoscopic Vein [place] 3. Intraoperative Vein Mapping. crystalloid 2000cc, EBL 600cc extubated last evening 12/14 pt doing fair, painful repeat lactic acid 2 BP elevated / gentle diuresis and BB added will transfer to stepdown Objective: GENERAL: A&O x3 SKIN: Warm and dry. prevena dressing to chest / britney wrap left leg HEAD: Normocephalic. EYES: No scleral icterus. No injection or drainage. NECK: Supple, trachea midline. No JVD or lymphadenopathy. CARDIOVASCULAR: Regular rate and rhythm without murmurs, gallops, or rubs. + general edema RESPIRATORY: Breath sounds equal bilaterally. No accessory muscle use. diminished in bases , chest tube to wall suction/ no air leak GASTROINTESTINAL: Abdomen soft, non-tender, nondistended. MUSCULOSKELETAL: No cyanosis, or edema. BACK: Nontender without obvious deformity. No CVA tenderness. Vital Signs Date Time Temp Pulse Resp B/P (MAP) Pulse Ox O2 Delivery O2 Flow Rate FiO2 12/14/17 12:38 18 12/14/17 10:11 18 12/14/17 07:00 68 12/14/17 07:00 98.2 68 18 124/44 (70) 97 106/70 (82) 12/14/17 03:00 64 12/14/17 03:00 97.7 64 24 134/56 (82) 92 130/74 (92) 12/14/17 01:00 18 12/13/17 23:00 97.8 71 18 133/56 (81) 95 102/50 (67) 12/13/17 23:00 71 12/13/17 22:00 93 Nasal Cannula 6.00 12/13/17 19:58 93 Nasal Cannula 5.00 12/13/17 19:45 93 Nasal Cannula 5 12/13/17 19:00 97.9 68 22 116/62 (80) 97 112/56 (74) 12/13/17 19:00 68 12/13/17 18:22 97.9 12/13/17 17:46 97.1 62 20 123/56 (78) 98 113/63 (80) 12/13/17 15:55 98.1 12/13/17 15:50 97.8 65 16 138/59 (85) 93 147/67 (93) 12/13/17 15:30 95 50 12/13/17 15:01 97.9 12/13/17 15:00 71 12/13/17 14:47 97.3 60 16 117/53 (74) 93 Labs: Laboratory Tests Test 12/14/17 04:40 White Blood Count 16.2 TH/MM3 (4.0-11.0) Red Blood Count 3.13 MIL/MM3 (4.00-5.30) Hemoglobin 8.4 GM/DL (11.6-15.3) Hematocrit 25.7 % (35.0-46.0) Mean Corpuscular Volume 82.1 FL (80.0-100.0) Mean Corpuscular Hemoglobin 26.8 PG (27.0-34.0) Mean Corpuscular Hemoglobin Concent 32.7 % (32.0-36.0) Red Cell Distribution Width 15.7 % (11.6-17.2) Platelet Count 274 TH/MM3 (150-450) Mean Platelet Volume 7.9 FL (7.0-11.0) Blood Urea Nitrogen 12 MG/DL (7-18) Creatinine 0.94 MG/DL (0.50-1.00) Random Glucose 123 MG/DL (74-106) Calcium Level 8.2 MG/DL (8.5-10.1) Magnesium Level 1.8 MG/DL (1.5-2.5) Sodium Level 140 MEQ/L (136-145) Potassium Level 4.3 MEQ/L (3.5-5.1) Chloride Level 107 MEQ/L (98-107) Carbon Dioxide Level 22.9 MEQ/L (21.0-32.0) Anion Gap 10 MEQ/L (5-15) Estimat Glomerular Filtration Rate 58 ML/MIN (>89) Result Diagram: 12/14/1743912/14/17 0440 Telemetry: NSR (1) S/P CABG x 2 Plan: ASA, resume zetia , BB OOB ambulate pain control pulm toileting gentle diuresis (2) History of CVA (cerebrovascular accident) Plan: plavix resumed (3) DM (diabetes mellitus screen) Plan: weaned off insulin gtt levemir HGB A1C >9 consult clock and watch hands painter (4) Hypertension Plan: BB added (5) COPD (chronic obstructive pulmonary disease) Plan: home meds resumed (6) Hyperlipidemia (7) Hypothyroidism Plan: on Synthroid (8) Coronary artery disease Elvira Tam Dec 14, 2017 14:30
[2017-12-14] MEDS: BUDESONIDE-FORMOTEROL 160/4.5 MCG INHALER INH SCH (14:50)
[2017-12-14] MEDS: SODIUM CHLORIDE 0.9% FLUSH 10 ML FLUSH IV FLUSH SCH ×2 (16:01→21:00)
--- NOTE | 2017-12-14 18:44 | EKG ---
Date Performed: 12/14/2017 Time Performed: 03:15:06 PTAGE: 76 years EKG: CONSIDER ACUTE ST ELEVATION NV Sinus rhythm . Inferior ST elevation, CONSIDER ACUTE INFARCT when compared to prior EKG, the patient has inferior ST elevation with concern for ST elevation Myocardial Infarction. Clinical correlation is recommended Abnormal ECG PREVIOUS TRACING :11/29/2017 @11.50 DOCTOR: Sunita Pitts Interpretating Date/Time 12/14/2017 18:42:29
--- NOTE | 2017-12-14 18:49 | HHI.CCPN ---
Subjective Remarks/Hospital Course Hospital Course: This is a 76-year-old female with a history of COPD and coronary artery disease who underwent off-pump coronary artery bypass grafting 2 today. Immediately postoperatively, she had difficulty weaning from mechanical ventilation. In addition her lactate is risen from 2-4.1. She is already received 900 cc crystalloid resuscitation as well as 250 cc 5% albumin. When I evaluated the patient and her chest tubes are dry, she is making adequate urine, her hemodynamics were stable. She is arousing from anesthesia and following week commands. No additional information is available from the patient due to her mental status and intubation. The remainder of the history is obtained from Dr. Talbot and the medical record. Subjective: 12/14: doing much better. extubated. working on pulmonary toilet. may not be ready for diuresis yet- still received volume resuscitation overnight. chest tubes with minimal sanguinous output. adequate uop. Objective Vital Signs Date Time Temp Pulse Resp B/P (MAP) Pulse Ox O2 Delivery O2 Flow Rate FiO2 12/14/17 15:00 98.0 84 18 169/70 (103) 97 12/14/17 14:54 Nasal Cannula 5.00 12/13/17 15:30 50 Intake and Output 12/14/17 12/14/17 12/14/17 07:59 15:59 23:59 Intake Total 590 ml 354 ml Output Total 610 ml Balance -20 ml 354 ml Result Diagram: 12/14/1743912/14/17439 Objective Remarks GENERAL: Elderly appearing female, lying in bed,extubated, no distress. HEENT: Normocephalic. Atraumatic. Pupils equal, round, reactive, conjugate. Mucous membranes are moist NECK: Trachea is midline. There is no JVD. CHEST: nc o2. Equal chest rise. Not tachypneic. 2 chest tubes exit subxiphoid with a minimal amount of sanguinous output. No air leak. Median sternotomy with wound VAC in place CARDIOVASCULAR: Normal rate, regular rhythm. Sinus. ABDOMEN: Obese, soft, nontender, nondistended. No guarding. MUSCULOSKELETAL: Pulses 2+. No peripheral edema. NEUROLOGICAL: RASS 0. Follows commands 4. awake and alert. A/P Assessment and Plan Assessment: 76yF POD 1 s/p off-pump CABG x 2 (MARIE-->LAD, SVG-->OM1). clinically improving. agree with beta blockade. will need early diuresis, but I agree with holding diuresis until volume resuscitation has been complete. OOB and aggressive mobilization. COPD - continue to wean fio2 for goal spo2 > 90% - nebs - OOB and aggressive mobilization. - PT consult. s/p OPCABG x 2 (MARIE-->LAD, SVG-->OM1) - anticoagulation per Dr. Talbot - close monitoring of chest tube output - close uop monitoring Lactic Acidosis- resolved HTN - hold antihypertensives immediately post op Critical care medicine will sign off. please re-consult as needed. Jim Gordon MD Dec 14, 2017 18:49
[2017-12-14] MEDS: GABAPENTIN 300 MG CAP PO SCH (21:36)
[2017-12-14] MEDS: SENNOSIDES 8.6 MG TAB PO SCH (21:36)
[2017-12-14] MEDS: INSULIN DETEMIR 100 UNITS/ML VIAL SQ SCH (21:37)
[2017-12-14] MEDS: ZOLPIDEM TARTRATE 5 MG TAB PO PRN (21:52)
[2017-12-15] VITALS (27 sets, daily range): BP systolic 128–156; BP diastolic 58–74; PULSE 53–79; RESP 18–20; TEMP 98–98.8; O2SAT 93–97
[2017-12-15] MEDS: HYDROmorphone HCL PF 0.5 MG/0.5 ML SYRINGE IV PRN ×3 (00:33→09:57)
[2017-12-15] MEDS: ALPRAZolam 0.25 MG TAB PO PRN ×2 (00:36→08:37)
[2017-12-15] MEDS: INSULIN ASPART SUPPLEMENTAL SCALE SQ SCH ×6 (02:00→21:23)
[2017-12-15] MEDS: LEVOTHYROXINE SODIUM 150 MCG TAB PO SCH (05:36)
[2017-12-15] MEDS: PANTOPRAZOLE SOD 40 MG DELAYED RELEASE TAB PO SCH (05:36)
[2017-12-15] MEDS: ONDANSETRON ODT 4 MG TAB PO PRN ×2 (05:51→14:09)
[2017-12-15 06:52] LABS: AUTOMATED NEUTROPHIL # 10.2 TH/MM3 (1.8-7.7); BASOPHIL % 0.3 % (0.0-2.0); EOSINOPHIL # 0.5 TH/MM3 (0-0.4); EOSINOPHIL % 3.4 % (0.0-4.0); HEMATOCRIT 25.3 % (35.0-46.0); HEMOGLOBIN 8.2 GM/DL (11.6-15.3); LYMPH % 10.6 % (9.0-44.0); LYMPHOCYTE # 1.5 TH/MM3 (1.0-4.8); MEAN CELL VOLUME 82.1 FL (80.0-100.0); MEAN CORPUSCULAR HEMOGLOBIN 26.6 PG (27.0-34.0); MEAN CORPUSCULAR HGB CONC 32.4 % (32.0-36.0); MEAN PLATELET VOLUME 8.2 FL (7.0-11.0); MONO % 13.1 % (0.0-8.0); MONOCYTE # 1.9 TH/MM3 (0-0.9); NEUT % 72.6 % (16.0-70.0); PLATELET COUNT 274 TH/MM3 (150-450); RED BLOOD COUNT 3.08 MIL/MM3 (4.00-5.30); RED CELL DISTRIBUTION WIDTH 16.1 % (11.6-17.2); WHITE BLOOD COUNT 14.1 TH/MM3 (4.0-11.0)
[2017-12-15 07:16] LABS: BICARBONATE 26.4 MEQ/L (21.0-32.0); CALCIUM 8.2 MG/DL (8.5-10.1); CREATININE 0.92 MG/DL (0.50-1.00); MAGNESIUM 2.2 MG/DL (1.5-2.5)
[2017-12-15] MEDS: RESP: ALBUTEROL 2.5 MG/IPRATROPIUM 0.5 MG NEB (SCH) NEB ×3 (07:52→20:02)
[2017-12-15] MEDS: POLYETHYLENE GLYCOL 17 GM PKG PO SCH (08:34)
[2017-12-15] MEDS: METOPROLOL TARTRATE 25 MG TAB PO SCH ×2 (08:34→21:22)
[2017-12-15] MEDS: MAGNESIUM HYDROXIDE SUSP 30 ML CUP PO SCH (08:34)
[2017-12-15] MEDS: EZETIMIBE 10 MG TAB PO SCH (08:35)
[2017-12-15] MEDS: MULTIVITAMINS/MINERALS THERAPEUTIC TAB PO SCH (08:35)
[2017-12-15] MEDS: DOCUSATE SODIUM 100 MG CAP PO SCH ×2 (08:35→21:22)
[2017-12-15] MEDS: AMIODARONE 200 MG TAB PO SCH ×2 (08:35→21:22)
[2017-12-15] MEDS: CITALOPRAM HYDROBROMIDE 40 MG TAB PO SCH (08:35)
[2017-12-15] MEDS: ASPIRIN 81 MG CHEW TAB PO SCH (08:35)
[2017-12-15] MEDS: CLOPIDOGREL 75 MG TAB PO SCH (08:35)
[2017-12-15] MEDS: INSULIN DETEMIR 100 UNITS/ML VIAL SQ SCH ×2 (08:36→21:22)
[2017-12-15] MEDS: BUDESONIDE-FORMOTEROL 160/4.5 MCG INHALER INH SCH (08:40)
[2017-12-15] MEDS: SODIUM CHLORIDE 0.9% FLUSH 10 ML FLUSH IV FLUSH SCH ×2 (08:40→21:00)
--- NOTE | 2017-12-15 08:41 | PD.CAR.PN ---
CVT Progress Note Subjective/Hospital Course: 76-year-old patient of Dr. Lozano, Dr. Peña, and Dr. Jeimy Fontenot , intially seen 11/29/17 . Recent workup for chest pain. She also recently admitted back 10/03/2017 with an acute CVA. Symptoms included aphasia and dysarthria. She received TPA on 10/03/2017 with very mild residual weakness in her upper extremities. Occasionally, her speech gets a little slurred when she is anxious. She underwent nuclear stress test, which was unremarkable, but continued to have midsternal chest pain with exertion. She has associated some diaphoresis and shortness of breath. Cardiac catheterization today by Dr. Peña revealed EF of 55%, left main disease of 70%, proximal LAD 10%, mid distal LAD 40%, diagonal 30%. We were consulted at that time to evaluate for coronary artery bypass graft x 2 to the LAD and the obtuse marginal. PAST MEDICAL HISTORY: Includes asthma; she uses a nebulizer at home. Coronary artery disease of the [place] coronaries. She has diabetes mellitus, on insulin. Hypertensive heart disease, murmur, obesity, peptic ulcer disease. She had an acute CVA 10/03/2017, PAST SURGICAL HISTORY: Include bowel resections. She has bowel surgery x 7 in the past. Her most recent was in 2015 where she had a colostomy, which has since been reversed. 12/13 pt electively admitted for surgery surgery: 1. Off-pump Coronary Artery Bypass Grafting x 2 with Left Internal Mammary Artery (MARIE) to Left Anterior Descending (LAD), reverse saphenous vein graft to Obtuse Marginal 1 (OM1) 2. Left Leg Endoscopic Vein [place] 3. Intraoperative Vein Mapping. crystalloid 2000cc, EBL 600cc extubated last evening 12/14 pt doing fair, painful repeat lactic acid 2 BP elevated / gentle diuresis and BB added will transfer to stepdown 12/15 Doing well Not motivated to get out of bed. PT Likely D/C CT in am Discharge planning Objective: Vital Signs Date Time Temp Pulse Resp B/P (MAP) Pulse Ox O2 Delivery O2 Flow Rate FiO2 12/15/17 07:57 97 Nasal Cannula 3.00 12/15/17 06:06 70 12/15/17 05:50 79 12/15/17 04:10 68 12/15/17 03:09 98.0 70 18 142/65 (90) 94 Arterial Line 12/15/17 03:09 69 12/15/17 02:50 68 12/15/17 01:06 69 12/15/17 00:22 53 12/14/17 23:00 68 12/14/17 23:00 98.4 72 18 122/39 (66) 94 12/14/17 22:00 66 12/14/17 21:45 98.0 76 19 148/59 (88) 94 12/14/17 21:45 80 12/14/17 20:28 94 Nasal Cannula 5.00 12/14/17 15:00 98.0 84 18 169/70 (103) 97 12/14/17 15:00 86 12/14/17 14:54 94 Nasal Cannula 5.00 12/14/17 12:38 18 12/14/17 11:00 68 12/14/17 11:00 98.4 84 18 165/80 (108) 97 12/14/17 10:11 18 Labs: Laboratory Tests Test 12/15/17 05:26 White Blood Count 14.1 TH/MM3 (4.0-11.0) Red Blood Count 3.08 MIL/MM3 (4.00-5.30) Hemoglobin 8.2 GM/DL (11.6-15.3) Hematocrit 25.3 % (35.0-46.0) Mean Corpuscular Volume 82.1 FL (80.0-100.0) Mean Corpuscular Hemoglobin 26.6 PG (27.0-34.0) Mean Corpuscular Hemoglobin Concent 32.4 % (32.0-36.0) Red Cell Distribution Width 16.1 % (11.6-17.2) Platelet Count 274 TH/MM3 (150-450) Mean Platelet Volume 8.2 FL (7.0-11.0) Neutrophils (%) (Auto) 72.6 % (16.0-70.0) Lymphocytes (%) (Auto) 10.6 % (9.0-44.0) Monocytes (%) (Auto) 13.1 % (0.0-8.0) Eosinophils (%) (Auto) 3.4 % (0.0-4.0) Basophils (%) (Auto) 0.3 % (0.0-2.0) Neutrophils # (Auto) 10.2 TH/MM3 (1.8-7.7) Lymphocytes # (Auto) 1.5 TH/MM3 (1.0-4.8) Monocytes # (Auto) 1.9 TH/MM3 (0-0.9) Eosinophils # (Auto) 0.5 TH/MM3 (0-0.4) Basophils # (Auto) 0.0 TH/MM3 (0-0.2) CBC Comment DIFF FINAL Differential Comment Blood Urea Nitrogen 17 MG/DL (7-18) Creatinine 0.92 MG/DL (0.50-1.00) Random Glucose 132 MG/DL (74-106) Calcium Level 8.2 MG/DL (8.5-10.1) Magnesium Level 2.2 MG/DL (1.5-2.5) Sodium Level 141 MEQ/L (136-145) Potassium Level 4.1 MEQ/L (3.5-5.1) Chloride Level 104 MEQ/L (98-107) Carbon Dioxide Level 26.4 MEQ/L (21.0-32.0) Anion Gap 11 MEQ/L (5-15) Estimat Glomerular Filtration Rate 59 ML/MIN (>89) Result Diagram: 12/15/1726 12/15/17525 (1) S/P CABG x 2 Plan: ASA, resume zetia , BB OOB ambulate pain control pulm toileting gentle diuresis (2) History of CVA (cerebrovascular accident) Plan: plavix resumed (3) DM (diabetes mellitus screen) Plan: weaned off insulin gtt levemir HGB A1C >9 consult wellness educator (4) Hypertension Plan: BB added (5) COPD (chronic obstructive pulmonary disease) Plan: home meds resumed (6) Hyperlipidemia (7) Hypothyroidism Plan: on Synthroid (8) Coronary artery disease Adolfo Talbot MD Dec 15, 2017 08:41
[2017-12-15] MEDS: ACETAMINOPHEN/HYDROcodone 325 MG/5 MG TAB PO PRN ×3 (14:09→21:22)
[2017-12-15] MEDS: HYDROmorphone HCL PF 2 MG/ML VIAL IV PUSH PRN ×3 (15:08→23:05)
[2017-12-15] MEDS: GABAPENTIN 300 MG CAP PO SCH (21:22)
[2017-12-15] MEDS: SENNOSIDES 8.6 MG TAB PO SCH (21:22)
[2017-12-15] MEDS: ZOLPIDEM TARTRATE 5 MG TAB PO PRN (21:40)
[2017-12-16] VITALS (27 sets, daily range): BP systolic 126–168; BP diastolic 57–75; PULSE 58–83; RESP 20–22; TEMP 97.7–99.1; O2SAT 93–96
[2017-12-16] MEDS: HYDROmorphone HCL PF 2 MG/ML VIAL IV PUSH PRN (04:36)
[2017-12-16 05:04] LABS: AUTOMATED NEUTROPHIL # 7.9 TH/MM3 (1.8-7.7); BASOPHIL # 0.1 TH/MM3 (0-0.2); BASOPHIL % 0.5 % (0.0-2.0); EOSINOPHIL # 0.6 TH/MM3 (0-0.4); EOSINOPHIL % 4.8 % (0.0-4.0); HEMATOCRIT 26.5 % (35.0-46.0); HEMOGLOBIN 8.5 GM/DL (11.6-15.3); LYMPH % 14.3 % (9.0-44.0); LYMPHOCYTE # 1.7 TH/MM3 (1.0-4.8); MEAN CORPUSCULAR HGB CONC 32.1 % (32.0-36.0); MEAN PLATELET VOLUME 8.1 FL (7.0-11.0); MONO % 12.9 % (0.0-8.0); MONOCYTE # 1.5 TH/MM3 (0-0.9); NEUT % 67.5 % (16.0-70.0); PLATELET COUNT 308 TH/MM3 (150-450); RED BLOOD COUNT 3.15 MIL/MM3 (4.00-5.30); RED CELL DISTRIBUTION WIDTH 16.4 % (11.6-17.2); WHITE BLOOD COUNT 11.7 TH/MM3 (4.0-11.0)
[2017-12-16 05:31] LABS: BICARBONATE 27.6 MEQ/L (21.0-32.0); CALCIUM 8.2 MG/DL (8.5-10.1); CREATININE 0.96 MG/DL (0.50-1.00); MAGNESIUM 2.1 MG/DL (1.5-2.5)
[2017-12-16] MEDS: LEVOTHYROXINE SODIUM 150 MCG TAB PO SCH (05:50)
[2017-12-16] MEDS: PANTOPRAZOLE SOD 40 MG DELAYED RELEASE TAB PO SCH (05:50)
[2017-12-16] MEDS: POLYETHYLENE GLYCOL 17 GM PKG PO SCH (07:57)
[2017-12-16] MEDS: MAGNESIUM HYDROXIDE SUSP 30 ML CUP PO SCH (07:58)
[2017-12-16] MEDS: MULTIVITAMINS/MINERALS THERAPEUTIC TAB PO SCH (07:58)
[2017-12-16] MEDS: AMIODARONE 200 MG TAB PO SCH ×2 (07:59→20:36)
[2017-12-16] MEDS: METOPROLOL TARTRATE 25 MG TAB PO SCH ×2 (07:59→20:35)
[2017-12-16] MEDS: DOCUSATE SODIUM 100 MG CAP PO SCH ×2 (07:59→20:35)
[2017-12-16] MEDS: CITALOPRAM HYDROBROMIDE 40 MG TAB PO SCH (07:59)
[2017-12-16] MEDS: ASPIRIN 81 MG CHEW TAB PO SCH (07:59)
[2017-12-16] MEDS: EZETIMIBE 10 MG TAB PO SCH (07:59)
[2017-12-16] MEDS: CLOPIDOGREL 75 MG TAB PO SCH (07:59)
[2017-12-16] MEDS: SODIUM CHLORIDE 0.9% FLUSH 10 ML FLUSH IV FLUSH SCH ×2 (07:59→20:36)
[2017-12-16] MEDS: INSULIN DETEMIR 100 UNITS/ML VIAL SQ SCH ×2 (08:00→20:36)
[2017-12-16] MEDS: INSULIN ASPART SUPPLEMENTAL SCALE SQ SCH ×4 (08:00→21:41)
[2017-12-16] MEDS: BUDESONIDE-FORMOTEROL 160/4.5 MCG INHALER INH SCH (08:00)
[2017-12-16] MEDS: ACETAMINOPHEN/HYDROcodone 325 MG/5 MG TAB PO PRN ×6 (08:05→23:36)
[2017-12-16] MEDS: RESP: ALBUTEROL 2.5 MG/IPRATROPIUM 0.5 MG NEB (SCH) NEB (08:08)
--- NOTE | 2017-12-16 12:43 | PD.CAR.PN ---
CVT Progress Note CVT: POD #: 3 Subjective/Hospital Course: 76-year-old patient of Dr. Lozano, Dr. Peña, and Dr. Jeimy Fontenot , intially seen 11/29/17 . Recent workup for chest pain. She also recently admitted back 10/03/2017 with an acute CVA. Symptoms included aphasia and dysarthria. She received TPA on 10/03/2017 with very mild residual weakness in her upper extremities. Occasionally, her speech gets a little slurred when she is anxious. She underwent nuclear stress test, which was unremarkable, but continued to have midsternal chest pain with exertion. She has associated some diaphoresis and shortness of breath. Cardiac catheterization today by Dr. Peña revealed EF of 55%, left main disease of 70%, proximal LAD 10%, mid distal LAD 40%, diagonal 30%. We were consulted at that time to evaluate for coronary artery bypass graft x 2 to the LAD and the obtuse marginal. PAST MEDICAL HISTORY: Includes asthma; she uses a nebulizer at home. Coronary artery disease of the j[place] coronaries. She has diabetes mellitus, on insulin. Hypertensive heart disease, murmur, obesity, peptic ulcer disease. She had an acute CVA 10/03/2017, PAST SURGICAL HISTORY: Include bowel resections. She has bowel surgery x 7 in the past. Her most recent was in 2015 where she had a colostomy, which has since been reversed. 12/13 pt electively admitted for surgery surgery: 1. Off-pump Coronary Artery Bypass Grafting x 2 with Left Internal Mammary Artery (MARIE) to Left Anterior Descending (LAD), reverse saphenous vein graft to Obtuse Marginal 1 (OM1) 2. Left Leg Endoscopic Vein [place] 3. Intraoperative Vein Mapping. crystalloid 2000cc, EBL 600cc extubated last evening 12/14 pt doing fair, painful repeat lactic acid 2 BP elevated / gentle diuresis and BB added will transfer to stepdown 12/15 Doing well Not motivated to get out of bed. PT Likely D/C CT in am Discharge planning 12/16/17 c/o generalized discomfort. Not motivated to do much of anything. Objective: Vital Signs Date Time Temp Pulse Resp B/P (MAP) Pulse Ox O2 Delivery O2 Flow Rate FiO2 12/16/17 12:15 18 12/16/17 12:01 62 12/16/17 11:00 98.0 64 20 163/70 (101) 93 12/16/17 11:00 93 Nasal Cannula 3.00 12/16/17 11:00 64 12/16/17 10:02 60 12/16/17 09:32 61 12/16/17 08:08 93 Nasal Cannula 3.00 12/16/17 08:00 93 Nasal Cannula 3.00 12/16/17 08:00 67 12/16/17 08:00 98.2 69 20 159/72 (101) 93 12/16/17 06:24 68 12/16/17 05:09 67 12/16/17 04:30 68 12/16/17 03:56 68 12/16/17 03:40 98.7 68 22 144/63 (90) 94 12/16/17 02:04 64 12/16/17 01:54 63 12/16/17 00:17 64 12/15/17 23:40 65 12/15/17 23:40 98.1 61 20 128/58 (81) 93 12/15/17 22:00 63 12/15/17 21:00 65 12/15/17 20:02 93 Nasal Cannula 3.00 12/15/17 20:00 67 12/15/17 19:20 71 12/15/17 19:20 98.5 75 20 148/65 (92) 94 12/15/17 18:00 69 12/15/17 17:00 69 12/15/17 16:00 71 12/15/17 15:00 77 12/15/17 15:00 98.8 70 20 156/69 (98) 93 12/15/17 14:00 72 12/15/17 13:00 71 Labs: Laboratory Tests Test 12/16/17 04:38 White Blood Count 11.7 TH/MM3 (4.0-11.0) Red Blood Count 3.15 MIL/MM3 (4.00-5.30) Hemoglobin 8.5 GM/DL (11.6-15.3) Hematocrit 26.5 % (35.0-46.0) Mean Corpuscular Volume 84.0 FL (80.0-100.0) Mean Corpuscular Hemoglobin 27.0 PG (27.0-34.0) Mean Corpuscular Hemoglobin Concent 32.1 % (32.0-36.0) Red Cell Distribution Width 16.4 % (11.6-17.2) Platelet Count 308 TH/MM3 (150-450) Mean Platelet Volume 8.1 FL (7.0-11.0) Neutrophils (%) (Auto) 67.5 % (16.0-70.0) Lymphocytes (%) (Auto) 14.3 % (9.0-44.0) Monocytes (%) (Auto) 12.9 % (0.0-8.0) Eosinophils (%) (Auto) 4.8 % (0.0-4.0) Basophils (%) (Auto) 0.5 % (0.0-2.0) Neutrophils # (Auto) 7.9 TH/MM3 (1.8-7.7) Lymphocytes # (Auto) 1.7 TH/MM3 (1.0-4.8) Monocytes # (Auto) 1.5 TH/MM3 (0-0.9) Eosinophils # (Auto) 0.6 TH/MM3 (0-0.4) Basophils # (Auto) 0.1 TH/MM3 (0-0.2) CBC Comment DIFF FINAL Differential Comment Blood Urea Nitrogen 21 MG/DL (7-18) Creatinine 0.96 MG/DL (0.50-1.00) Random Glucose 163 MG/DL (74-106) Calcium Level 8.2 MG/DL (8.5-10.1) Magnesium Level 2.1 MG/DL (1.5-2.5) Sodium Level 140 MEQ/L (136-145) Potassium Level 4.5 MEQ/L (3.5-5.1) Chloride Level 105 MEQ/L (98-107) Carbon Dioxide Level 27.6 MEQ/L (21.0-32.0) Anion Gap 7 MEQ/L (5-15) Estimat Glomerular Filtration Rate 57 ML/MIN (>89) Result Diagram: 12/16/1743712/16/17437 Cardiovascular: RRR Pulmonary: Decreased BS bilat GI/: NABS, NT Incision: dry and intact Plan: Remove chest tubes PT/OT evaluation Out of bed to chair/ambulate Stim BM Increase BB dose, Restart ACEI Add Lipitor (1) S/P CABG x 2 Plan: ASA, resume zetia , BB OOB ambulate pain control pulm toileting gentle diuresis (2) History of CVA (cerebrovascular accident) Plan: plavix resumed (3) DM (diabetes mellitus screen) Plan: weaned off insulin gtt levemir HGB A1C >9 consult environmental educator (4) Hypertension Plan: BB added (5) COPD (chronic obstructive pulmonary disease) Plan: home meds resumed (6) Hyperlipidemia (7) Hypothyroidism Plan: on Synthroid (8) Coronary artery disease Minda Echols MD Dec 16, 2017 12:43
[2017-12-16] MEDS: hydrALAZINE HCL 20 MG/ML VIAL IV PUSH PRN (15:44)
[2017-12-16] MEDS: ALPRAZolam 0.25 MG TAB PO PRN ×2 (17:26→23:36)
[2017-12-16] MEDS: GABAPENTIN 300 MG CAP PO SCH (20:35)
[2017-12-16] MEDS: SENNOSIDES 8.6 MG TAB PO SCH (20:35)
[2017-12-16] MEDS: LISINOPRIL 20 MG TAB PO SCH (20:36)
[2017-12-16] MEDS ORDERED: ATORVASTATIN 40 MG TAB PO SCH (21:00)
[2017-12-16] MEDS: ZOLPIDEM TARTRATE 5 MG TAB PO PRN (21:41)
[2017-12-17] VITALS (14 sets, daily range): BP systolic 131–175; BP diastolic 60–77; PULSE 55–71; RESP 18; TEMP 98.2–98.8; O2SAT 93–94
[2017-12-17] MEDS: PANTOPRAZOLE SOD 40 MG DELAYED RELEASE TAB PO SCH (05:37)
[2017-12-17] MEDS: ALPRAZolam 0.25 MG TAB PO PRN (05:37)
[2017-12-17] MEDS: LEVOTHYROXINE SODIUM 150 MCG TAB PO SCH (05:37)
[2017-12-17] MEDS: ACETAMINOPHEN/HYDROcodone 325 MG/5 MG TAB PO PRN ×3 (05:38→13:01)
[2017-12-17] MEDS: hydrALAZINE HCL 20 MG/ML VIAL IV PUSH PRN (05:38)
[2017-12-17] MEDS: INSULIN ASPART SUPPLEMENTAL SCALE SQ SCH ×2 (08:18→12:00)
[2017-12-17] MEDS: POLYETHYLENE GLYCOL 17 GM PKG PO SCH (08:23)
[2017-12-17] MEDS: MAGNESIUM HYDROXIDE SUSP 30 ML CUP PO SCH (08:23)
[2017-12-17] MEDS: METOPROLOL TARTRATE 25 MG TAB PO SCH (08:24)
[2017-12-17] MEDS: MULTIVITAMINS/MINERALS THERAPEUTIC TAB PO SCH (08:24)
[2017-12-17] MEDS: EZETIMIBE 10 MG TAB PO SCH (08:24)
[2017-12-17] MEDS: CLOPIDOGREL 75 MG TAB PO SCH (08:24)
[2017-12-17] MEDS: CITALOPRAM HYDROBROMIDE 40 MG TAB PO SCH (08:24)
[2017-12-17] MEDS: DOCUSATE SODIUM 100 MG CAP PO SCH (08:24)
[2017-12-17] MEDS: LISINOPRIL 20 MG TAB PO SCH (08:24)
[2017-12-17] MEDS: AMIODARONE 200 MG TAB PO SCH (08:24)
[2017-12-17] MEDS: ASPIRIN 81 MG CHEW TAB PO SCH (08:24)
[2017-12-17] MEDS: INSULIN DETEMIR 100 UNITS/ML VIAL SQ SCH (08:25)
[2017-12-17] MEDS: BUDESONIDE-FORMOTEROL 160/4.5 MCG INHALER INH SCH (08:25)
[2017-12-17] MEDS: SODIUM CHLORIDE 0.9% FLUSH 10 ML FLUSH IV FLUSH SCH (08:25)
[2017-12-17] MEDS ORDERED: ATOR40TA16 PO (12:24)
[2017-12-17] MEDS ORDERED: METO25TA3 PO (12:24)
[2017-12-17] MEDS ORDERED: AMIO200T PO (12:24)
[2017-12-17] MEDS ORDERED: DOCU1CAP39 PO (12:24)
[2017-12-17] MEDS ORDERED: ASPI81 PO (12:24)
--- NOTE | 2017-12-17 12:29 | HHI.DS ---
Discharge Summary Admission Date Dec 13, 2017 at 05:39 Discharge Date: Dec 17, 2017 Admitting Diagnosis CAD Chest pain Dyspnea (1) Coronary artery disease Diagnosis: Principal ICD Codes: I25.10 - Atherosclerotic heart disease of [place] coronary artery without angina pectoris (2) DM (diabetes mellitus screen) Diagnosis: Secondary ICD Codes: Z13.1 - Encounter for screening for diabetes mellitus Status: Acute (3) Hypertension Diagnosis: Secondary ICD Codes: I10 - Hypertension Status: Chronic (4) Hypothyroidism Diagnosis: Secondary ICD Codes: E03.9 - Hypothyroidism, unspecified Status: Chronic (5) Hyperlipidemia Diagnosis: Secondary ICD Codes: E78.5 - Hyperlipidemia, unspecified Status: Chronic (6) COPD (chronic obstructive pulmonary disease) Diagnosis: Secondary ICD Codes: J44.9 - Chronic obstructive pulmonary disease, unspecified Status: Acute (7) Diabetes mellitus Diagnosis: Secondary ICD Codes: E11.9 - Diabetes mellitus Status: Chronic (8) Essential hypertension Diagnosis: Secondary ICD Codes: I10 - Essential (primary) hypertension Status: Chronic (9) Depression Diagnosis: Secondary ICD Codes: F32.9 - Depression Status: Acute (10) Reactive arthritis Diagnosis: Secondary ICD Codes: 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, unspecified site Status: Acute (11) Shortness of breath Diagnosis: Secondary ICD Codes: R06.02 - Shortness of breath Status: Acute (12) Interstitial lung disease Diagnosis: Secondary ICD Codes: J84.9 - Interstitial pulmonary disease, unspecified Status: Acute (13) Asthma Diagnosis: Secondary ICD Codes: J45.909 - Unspecified asthma, uncomplicated Status: Acute (14) Adjustment disorder with anxiety ICD Codes: F43.22 - Adjustment disorder with anxiety Status: Acute (15) Insulin dependent diabetes mellitus Diagnosis: Secondary ICD Codes: E11.9 - Type 2 diabetes mellitus without complications; Z79.4 - extermination inspector (current) use of insulin Status: Chronic (16) Hypothyroidism Diagnosis: Secondary ICD Codes: E03.9 - Hypothyroidism Status: Chronic Procedures CABG Brief History Subjective/Hospital Course: 76-year-old patient of Dr. Lozano, Dr. Peña, and Dr. Jeimy Fontenot , intially seen 11/29/17 . Recent workup for chest pain. She also recently admitted back 10/03/2017 with an acute CVA. Symptoms included aphasia and dysarthria. She received TPA on 10/03/2017 with very mild residual weakness in her upper extremities. Occasionally, her speech gets a little slurred when she is anxious. She underwent nuclear stress test, which was unremarkable, but continued to have midsternal chest pain with exertion. She has associated some diaphoresis and shortness of breath. Cardiac catheterization today by Dr. Peña revealed EF of 55%, left main disease of 70%, proximal LAD 10%, mid distal LAD 40%, diagonal 30%. We were consulted at that time to evaluate for coronary artery bypass graft x 2 to the LAD and the obtuse marginal. PAST MEDICAL HISTORY: Includes asthma; she uses a nebulizer at home. Coronary artery disease of the [place] coronaries. She has diabetes mellitus, on insulin. Hypertensive heart disease, murmur, obesity, peptic ulcer disease. She had an acute CVA 10/03/2017, PAST SURGICAL HISTORY: Include bowel resections. She has bowel surgery x 7 in the past. Her most recent was in 2015 where she had a colostomy, which has since been reversed. CBC/BMP: 12/16/17 0438 12/16/17 0438 Significant Findings Laboratory Tests Test 12/15/17 05:26 12/16/17 04:38 White Blood Count 14.1 TH/MM3 (4.0-11.0) 11.7 TH/MM3 (4.0-11.0) Red Blood Count 3.08 MIL/MM3 (4.00-5.30) 3.15 MIL/MM3 (4.00-5.30) Hemoglobin 8.2 GM/DL (11.6-15.3) 8.5 GM/DL (11.6-15.3) Hematocrit 25.3 % (35.0-46.0) 26.5 % (35.0-46.0) Mean Corpuscular Hemoglobin 26.6 PG (27.0-34.0) Neutrophils (%) (Auto) 72.6 % (16.0-70.0) Monocytes (%) (Auto) 13.1 % (0.0-8.0) 12.9 % (0.0-8.0) Neutrophils # (Auto) 10.2 TH/MM3 (1.8-7.7) 7.9 TH/MM3 (1.8-7.7) Monocytes # (Auto) 1.9 TH/MM3 (0-0.9) 1.5 TH/MM3 (0-0.9) Eosinophils # (Auto) 0.5 TH/MM3 (0-0.4) 0.6 TH/MM3 (0-0.4) Random Glucose 132 MG/DL (74-106) 163 MG/DL (74-106) Calcium Level 8.2 MG/DL (8.5-10.1) 8.2 MG/DL (8.5-10.1) Estimat Glomerular Filtration Rate 59 ML/MIN (>89) 57 ML/MIN (>89) Eosinophils (%) (Auto) 4.8 % (0.0-4.0) Blood Urea Nitrogen 21 MG/DL (7-18) Imaging Last Impressions Chest X-Ray 12/14/17 0500 Signed Impressions: CONCLUSION: 1. Endotracheal tube and nasogastric tube no longer seen. 2. Increased left lower lobe atelectasis. PE at Discharge chest - CTA COR - RRR ABD - soft, NT Wound - dry and intact Hospital Course 12/13 pt electively admitted for surgery surgery: 1. Off-pump Coronary Artery Bypass Grafting x 2 with Left Internal Mammary Artery (MARIE) to Left Anterior Descending (LAD), reverse saphenous vein graft to Obtuse Marginal 1 (OM1) 2. Left Leg Endoscopic Vein [place] 3. Intraoperative Vein Mapping. crystalloid 2000cc, EBL 600cc extubated last evening 12/14 pt doing fair, painful repeat lactic acid 2 BP elevated / gentle diuresis and BB added will transfer to stepdown 12/15 Doing well Not motivated to get out of bed. PT Likely D/C CT in am Discharge planning 12/16/17 c/o generalized discomfort. Not motivated to do much of anything. Pt Condition on Discharge: Good Discharge Disposition: Rehab Inpatient Discharge Instructions DIET: Follow Instructions for: Diabetic Diet Activities you can perform: Weight Bearing as Nuno, Shower Only-No Bath Activities to avoid: Lifting/Bending, Driving Follow up Referrals: Cardiology - 4 Weeks with Bakari Lozano MD PCP Follow-up - 2 Weeks with Jeimy Fontenot MD Surgical - 2 Weeks with Adolfo Talbot MD New Medications: Amiodarone (Amiodarone) 200 Mg Tab 200 MG PO Q12HR for Regulate Heart Beat, #28 TAB Aspirin (Tgt Aspirin) 81 Mg Chw 81 MG PO DAILY for Blood Clot Prevention, #100 EA 3 Refills Atorvastatin (Atorvastatin) 40 Mg Tab 40 MG PO HS for Cholesterol Management, #30 TAB 3 Refills Docusate Sodium (Dok) 100 Mg Cap 100 MG PO BID for Constipation, #28 CAP Metoprolol Tartrate (Metoprolol Tartrate) 25 Mg Tab 50 MG PO Q12HR for Blood Pressure Management, #60 TAB 3 Refills Continued Medications: Alprazolam (Xanax) 0.25 Mg Tab 0.25 MG PO Q6HR PRN for ANXIETY, #20 TAB Budesonide-Formoterol Inh (Symbicort Inh) 160-4.5 Mcg/Act Aero 2 PUFF INH DAILY, #1 INHALER 0 Refills Citalopram (Citalopram) 40 Mg Tab 40 MG PO DAILY for Control Depression, #30 TAB 0 Refills Clopidogrel (Plavix) 75 Mg Tab 75 MG PO DAILY for Blood Clot Prevention, #30 TAB 0 Refills Cyanocobalamin (Vitamin B-12) 500 Mcg Tab 500 MCG PO DAILY for Nutritional Supplement, #1 BOTTLE 0 Refills Ezetimibe (Zetia) 10 Mg Tab 10 MG PO DAILY, #30 TAB 0 Refills Felodipine ER (Felodipine ER) 10 mg Tree 10 MG PO DAILY for Blood Pressure Management, #30 TAB 0 Refills Gabapentin (Gabapentin) 300 Mg Cap 300 MG PO HS, #30 CAP 0 Refills Hydralazine HCl (Hydralazine HCl) 10 Mg Tablet 10 MG PO DAILY Hydrocodone-Acetaminophen (Vicodin) 5-300 Mg Tab 1 TAB PO Q4H PRN for PAIN, TAB 0 Refills Insulin Glargine Inj (Lantus Solostar Pen Inj) 300 Unit/3 Ml Pen 65 UNITS SQ BID for Blood Sugar Management, PEN 0 Refills Insulin Lispro (Human) Inj (Humalog Inj) 1,000 Unit/10 Ml Vial SQ ACHS for Blood Sugar Management, #1 VIAL 0 Refills PER SLIDING SCALE Levothyroxine (Levothyroxine) 150 Mcg Tab 150 MCG PO DAILY for Thyroid, #30 TAB 0 Refills Potassium Gluconate (Potassium) 600 Mg (99 Mg) Tablet 595 MG PO DAILY for Nutritional Supplement Quinapril HCl (Quinapril HCl) 40 Mg Tablet 40 MG PO BID Zolpidem (Zolpidem) 5 Mg Tab 5 MG PO HS PRN for INSOMNIA, TAB 0 Refills Discontinued Medications: Aspirin (Aspirin) 325 Mg Tab 325 MG PO DAILY, #30 TAB 0 Refills [zyrtec] () Minda Echols MD Dec 17, 2017 12:29
== END 2017-12-17 13:35 | DRG 236 ==
LOC: HSDI 05:39 → HCVI 12:12 → HCPC 12-14 21:15
PROVIDERS: ADMIT Thoracic Surgery (Cardiothoracic Vascular Surgery); ATTEND Thoracic Surgery (Cardiothoracic Vascular Surgery)
PROC: 06BQ4ZZ Excision of Left Saphenous Vein, Percutaneous Endoscopic Approach (ICD-10-PCS; 2017-12-13)
PROC: 02100Z9 Bypass Coronary Artery, One Artery from Left Internal Mammary, Open Approach (ICD-10-PCS; principal; 2017-12-13 07:28)
PROC: 021009W Bypass Coronary Artery, One Artery from Aorta with Autologous Venous Tissue, Open Approach (ICD-10-PCS; 2017-12-13 07:28)
DX: I25.10 Atherosclerotic heart disease of native coronary artery without angina pectoris (principal); J84.9 Interstitial pulmonary disease, unspecified; E87.2 Acidosis; Z68.41 Body mass index [BMI] 40.0-44.9, adult; J44.9 Chronic obstructive pulmonary disease, unspecified; E86.9 Volume depletion, unspecified; M02.30 Reiter's disease, unspecified site; E11.9 Type 2 diabetes mellitus without complications; E66.9 Obesity, unspecified; M19.90 Unspecified osteoarthritis, unspecified site; E03.9 Hypothyroidism, unspecified; E78.5 Hyperlipidemia, unspecified; F32.9 Major depressive disorder, single episode, unspecified; F43.22 Adjustment disorder with anxiety; I11.9 Hypertensive heart disease without heart failure; Z86.73 Personal history of transient ischemic attack (TIA), and cerebral infarction without residual deficits; Z79.4 Long term (current) use of insulin; Z82.49 Family history of ischemic heart disease and other diseases of the circulatory system; Z95.5 Presence of coronary angioplasty implant and graft; Z79.82 Long term (current) use of aspirin
CPT/HCPCS: 71045; 76937; 80048; 82948; 83735; 85014; 85025; 85027; 86850; 86900; 86901; 86920; 93005; 94002; 94150; 94640; 94664; 94667; 94668; C1768; J0131; J0360; J1170; J1644; J1815; J1885; J1940; J2250; J2370; J2440; J2720; J3010; J3370; J3475; J3480; J7040; J7050; J7120; P9045

== ENCOUNTER 2018-05-03 10:46 | Observation (INO) ==
--- NOTE | 2018-05-03 11:31 | XR ---
EXAM DATE: 05/03/2018 11:26 AM EDT AGE/SEX: 77 years / Female INDICATIONS: Short of breath, dizziness, left epigastric pain. CLINICAL DATA: This is the patient's initial encounter. Patient reports that signs and symptoms have been present for 1 day and indicates a pain score of 5/10. MEDICAL/SURGICAL HISTORY: Asthma. Osteoarthritis. Myocardial infarction. Diabetic. Stroke. CABG. Total knee replacement, left. Total knee replacement, right. [place] [facility] [place]. . FINDINGS: Single view of the chest some further numerous sternal wires. The cardiac silhouette is enlarged. The cardiac silhouette is bowed this superiorly can be seen with a pericardial effusion. The lungs are g rossly clear. I do not see a substantial pleural effusion. CONCLUSION: Cardiac/pericardial silhouette is enlarged. Correlate for pericardial effusion. Electronically signed by: Kurt Ibarra MD 05/03/2018 11:30 AM EDT
[2018-05-03] MEDS ORDERED: hydrALAZINE HCl Inj 20 MG/ML Vial IV.PUSH ONE (11:36)
--- NOTE | 2018-05-03 11:36 | ED ---
HPI General Chief complaint: Abdominal Pain Stated complaint: Abd pain/dizziness Time Seen by Provider: 05/03/18 10:58 Source: patient Mode of arrival: ambulatory Limitations: no limitations History of Present Illness HPI narrative: 77yo F with PMH of CAD s/p bypass, DM, osteoarthritis, TIA here with multiple complaints. Pt states she was feeling short of breath today and it is worst with walking. Said she felt dizzy and sweaty when she was walking to the garage today and that she felt better after sitting down. Pt also with left sided abdominal pain for 3 to 4 days. Denies any fever, chest pain, n/v, diarrhea, focal weakness or numbness. Related Data Home Medications Medication Instructions Recorded Confirmed clopidogrel 75 mg PO DAILY 02/09/18 05/03/18 citalopram 40 mg PO DAILY 03/30/18 05/03/18 alprazolam 0.25 mg PO HS 05/03/18 05/03/18 aspirin [Aspir-Low] 81 mg PO DAILY 05/03/18 05/03/18 budesonide-formoterol [Symbicort] 2 puff INHALATION BID 05/03/18 05/03/18 hydralazine 20 mg PO BID 05/03/18 05/03/18 hydrocodone-acetaminophen 1 tab PO TID 05/03/18 05/03/18 insulin aspart U-100 [Novolog 1 sliding scale dose SUBCUT UD 05/03/18 05/03/18 U-100 Insulin aspart] insulin glargine [Lantus U-100 70 unit SUBCUT BID 05/03/18 05/03/18 Insulin] isosorbide dinitrate 3 mg PO DAILY 05/03/18 05/03/18 levothyroxine 200 mcg PO DAILY 05/03/18 05/03/18 quinapril 40 mg PO DAILY 05/03/18 05/03/18 zolpidem 10 mg PO HS 05/03/18 05/03/18 Previous Rx's Medication Instructions Recorded insulin lispro [Humalog U-100 1 sliding scale dose SUB-Q BIDAC 01/02/18 Insulin] #30 ml nitroglycerin [Nitrostat] 0.4 mg SUBLINGUAL Q5M PRN #30 tab 01/02/18 Allergies Allergy/AdvReac Type Severity Reaction Status Date / Time egg Allergy Severe DYSPNEA, Verified 05/03/18 10:47 SWELLING erythromycin base Allergy Severe HIVES, Verified 05/03/18 10:47 TROUBLE BREATHING Fish Containing Products Allergy Severe HIVES Verified 05/03/18 10:47 iodine Allergy Severe SWELLING Verified 05/03/18 10:47 mercury (elemental) Allergy Severe Anaphylaxis Verified 05/03/18 10:47 mold Allergy Severe ITCHING Verified 05/03/18 10:47 penicillin G Allergy Severe STOPS Verified 05/03/18 10:47 BREATHING potassium iodide Allergy Severe SWELLING Verified 05/03/18 10:47 povidone-iodine Allergy Severe SWELLING Verified 05/03/18 10:47 sodium iodide Allergy Severe SWELLING Verified 05/03/18 10:47 sodium iodide Allergy Severe SWELLING Verified 05/03/18 10:47 Sulfa (Sulfonamide Allergy Severe STOPS Verified 05/03/18 10:47 Antibiotics) BREATHING, "SULFA POISONING" metformin AdvReac Severe DIARRHEA, Verified 05/03/18 10:47 GASTRIC CRAMPING morphine AdvReac Unknown STATES Verified 05/03/18 10:47 MAKES HER "TOO SLEEPY" - REFUSES Review of Systems ROS: all other systems reviewed are negative [facility] Family History Family History Other Family history non-contributory Social History Social History Substance History: No History of Abuse Second Hand Smoke Exposure: No Smoking Status: Never smoker How Often Do You Have a Drink Containing Alcohol: Never Recent Travel in [facility] within the Last 8 Weeks: No Recent Out of Country Travel within the Last 8 Weeks: No Exam Narrative Exam Narrative: GENERAL: 77yo F in mild distress. SKIN: Focused skin assessment warm/dry. HEAD: Atraumatic. Normocephalic. EYES: Pupils equal and round. No scleral icterus. No injection or drainage. ENT: No nasal bleeding or discharge. Mucous membranes pink and moist. NECK: Trachea midline. No JVD. CARDIOVASCULAR: Regular rate and rhythm. No murmur appreciated. RESPIRATORY: No accessory muscle use. Clear to auscultation. Breath sounds equal bilaterally. GASTROINTESTINAL: Abdomen soft, +TTP mid left abdomen. No rebound tenderness or guarding. MUSCULOSKELETAL: No obvious deformities. No clubbing. No cyanosis. No edema. NEUROLOGICAL: Awake and alert. No obvious cranial nerve deficits. Motor grossly within normal limits in all extremities. Sensation equal bilaterally. Normal speech. PSYCHIATRIC: Appropriate mood and affect; insight and judgment normal. Course Initial Documented Vital Signs Temperature 98.3 F 05/03/18 10:48 Pulse Rate 87 05/03/18 10:48 Respiratory Rate 20 05/03/18 10:48 Blood Pressure 202/87 H 05/03/18 10:48 Pulse Oximetry 92 L 05/03/18 10:48 Last Documented Vital Signs Temperature 97.6 F 05/04/18 16:00 Pulse Rate 70 05/04/18 16:00 Respiratory Rate 18 05/04/18 16:00 Blood Pressure 125/53 L 05/04/18 16:00 Pulse Oximetry 94 L 05/04/18 16:00 Medical Decision Making MDM Narrative Medical decision making narrative: 77yo F with multiple complaints. Labs reviewed, no leukocytosis. H/H low at 03/31 but this is baseline for her. Glucose elevated at 203. Normal CO2. Anion gap normal. LFTs normal. Troponin negative. BNP elevated at 807. Pt initially very hypertensive so given hydralazine. BP improved. Pt also given lasix 40mg IV. Impression is CHF. CXR showed cardiac silhouette enlarged. CT a/p showed 2 abdominal wall hernias anteriorly. No evidence of obstruction. Pt reevaluated at bedside and said she feels better. She is still mildly tachypneic and is on 2L NC. Does not see oxygen at home. Discussed with Dr. Davis and accepted to his service. Medical Screen Exam Complete: Yes Emergency Medical Condition: Yes Differential Diagnosis Differential Diagnosis: Colitis vs. arrhythmia vs. ACS vs. pneumonia vs. dehydration vs. electrolyte abnormality vs. CHF Lab Data Result diagrams: 05/04/18 06:10 05/04/18 15:18 Lab Results 05/03/18 05/03/18 05/03/18 Range/Units 11:05 11:12 11:35 CBC w Diff Slide review pending WBC 8.8 (4.0-11.0) th/mm3 RBC 4.33 (4.00-5.30) mil/mm3 Hgb 9.0 L (11.6-15.3) gm/dL Hct 29.0 L (35.0-46.0) % MCV 67.0 L (80.0-100.0) fL MCH 20.9 L (27.0-34.0) pg MCHC 31.2 L (32.0-36.0) % RDW 21.6 H (11.6-17.2) % Plt Count 497 H (150-450) th/mm3 MPV 7.9 (7.0-11.0) fL Neut % (Auto) 77.9 H (16.0-70.0) % Lymph % (Auto) 14.3 (9.0-44.0) % [place] % (Auto) 7.5 (0.0-8.0) % Eos % (Auto) 0.0 (0.0-4.0) % Baso % (Auto) 0.3 (0.0-2.0) % Neut # (Auto) 6.8 (1.8-7.7) th/mm3 Lymph # (Auto) 1.3 (1.0-4.8) th/mm3 [place] # (Auto) 0.7 (0.0-0.9) th/mm3 Eos # (Auto) 0.0 (0.0-0.4) th/mm3 Baso # (Auto) 0.0 (0.0-0.2) th/mm3 WBC Differential . Diff Scan Auto diff confirmed Differential Comment . Platelet Estimate High H (Normal) Platelet Morphology Normal (Normal) Target Cells 1+ H (None) Tear Drop Cells 1+ H (None) Ovalocytes 1+ H (None) Keratocytes (None) PT (9.8-11.6) sec INR Ratio APTT (23.4-31.7) sec Sodium (136-145) meq/L Potassium (3.5-5.1) meq/L Chloride (98-107) meq/L Carbon Dioxide (21.0-32.0) meq/L Anion Gap (5-15) meq/L BUN (7-18) mg/dL Creatinine (0.50-1.00) mg/dL Estimated GFR (>89) mL/min POC Glucose 213 H (68-110) mg/dl Random Glucose (74-106) mg/dL Calcium (8.5-10.1) mg/dL Magnesium (1.5-2.5) mg/dL Iron (50-170) mcg/dL TIBC (250-450) mcg/dL % Saturation (20-50) % Total Bilirubin (0.2-1.0) mg/dL AST (15-37) U/L ALT (10-53) U/L Alkaline Phosphatase (45-117) U/L Troponin I (0.02-0.05) ng/mL B-Natriuretic Peptide (0-100) pg/mL Total Protein (6.4-8.2) g/dL Albumin (3.4-5.0) g/dL Lipase (73-393) U/L Ur Collection Type Clean catch Urine Color Yellow (Yellw/Straw) Urine Clarity Clear (Clear) Urine pH 6.5 (5.0-8.5) Ur Specific [place] 1.010 (1.002-1.035) Urine Protein Trace (Neg-Trace) mg/dL Urine Glucose (UA) 100 H (Negative) mg/dL Urine Ketones Trace H (Negative) mg/dL Urine Occult Blood Negative (Negative) Urine Nitrate Negative (Negative) Urine Bilirubin Negative (Negative) Urine Urobilinogen 0.2 (Less than 2) mg/dL Ur Leukocyte Esterase Negative (Negative) Ur Squamous Epith Cells 0-5 (0-5) /hpf Ur Microscopic Review Microscopic reviewed Urine Collection Time 1105 hours 05/03/18 05/03/18 05/03/18 Range/Units 11:35 11:35 11:35 CBC w Diff WBC (4.0-11.0) th/mm3 RBC (4.00-5.30) mil/mm3 Hgb (11.6-15.3) gm/dL Hct (35.0-46.0) % MCV (80.0-100.0) fL MCH (27.0-34.0) pg MCHC (32.0-36.0) % RDW (11.6-17.2) % Plt Count (150-450) th/mm3 MPV (7.0-11.0) fL Neut % (Auto) (16.0-70.0) % Lymph % (Auto) (9.0-44.0) % [place] % (Auto) (0.0-8.0) % Eos % (Auto) (0.0-4.0) % Baso % (Auto) (0.0-2.0) % Neut # (Auto) (1.8-7.7) th/mm3 Lymph # (Auto) (1.0-4.8) th/mm3 [place] # (Auto) (0.0-0.9) th/mm3 Eos # (Auto) (0.0-0.4) th/mm3 Baso # (Auto) (0.0-0.2) th/mm3 WBC Differential Diff Scan Differential Comment Platelet Estimate (Normal) Platelet Morphology (Normal) Target Cells (None) Tear Drop Cells (None) Ovalocytes (None) Keratocytes (None) PT 11.0 (9.8-11.6) sec INR 1.1 Ratio APTT 24.0 (23.4-31.7) sec Sodium 138 (136-145) meq/L Potassium 4.0 (3.5-5.1) meq/L Chloride 103 (98-107) meq/L Carbon Dioxide 25.4 (21.0-32.0) meq/L Anion Gap 10 (5-15) meq/L BUN 10 (7-18) mg/dL Creatinine 0.78 (0.50-1.00) mg/dL Estimated GFR 72 L (>89) mL/min POC Glucose (68-110) mg/dl Random Glucose 203 H (74-106) mg/dL Calcium 8.3 L (8.5-10.1) mg/dL Magnesium (1.5-2.5) mg/dL Iron (50-170) mcg/dL TIBC (250-450) mcg/dL % Saturation (20-50) % Total Bilirubin 0.3 (0.2-1.0) mg/dL AST 22 (15-37) U/L ALT 20 (10-53) U/L Alkaline Phosphatase 100 (45-117) U/L Troponin I 0.02 (0.02-0.05) ng/mL B-Natriuretic Peptide 807 H (0-100) pg/mL Total Protein 7.5 (6.4-8.2) g/dL Albumin 3.2 L (3.4-5.0) g/dL Lipase (73-393) U/L Ur Collection Type Urine Color (Yellw/Straw) Urine Clarity (Clear) Urine pH (5.0-8.5) Ur Specific [place] (1.002-1.035) Urine Protein (Neg-Trace) mg/dL Urine Glucose (UA) (Negative) mg/dL Urine Ketones (Negative) mg/dL Urine Occult Blood (Negative) Urine Nitrate (Negative) Urine Bilirubin (Negative) Urine Urobilinogen (Less than 2) mg/dL Ur Leukocyte Esterase (Negative) Ur Squamous Epith Cells (0-5) /hpf Ur Microscopic Review Urine Collection Time hours 05/03/18 05/03/18 05/03/18 Range/Units 11:35 11:35 16:36 CBC w Diff WBC (4.0-11.0) th/mm3 RBC (4.00-5.30) mil/mm3 Hgb (11.6-15.3) gm/dL Hct (35.0-46.0) % MCV (80.0-100.0) fL MCH (27.0-34.0) pg MCHC (32.0-36.0) % RDW (11.6-17.2) % Plt Count (150-450) th/mm3 MPV (7.0-11.0) fL Neut % (Auto) (16.0-70.0) % Lymph % (Auto) (9.0-44.0) % [place] % (Auto) (0.0-8.0) % Eos % (Auto) (0.0-4.0) % Baso % (Auto) (0.0-2.0) % Neut # (Auto) (1.8-7.7) th/mm3 Lymph # (Auto) (1.0-4.8) th/mm3 [place] # (Auto) (0.0-0.9) th/mm3 Eos # (Auto) (0.0-0.4) th/mm3 Baso # (Auto) (0.0-0.2) th/mm3 WBC Differential Diff Scan Differential Comment Platelet Estimate (Normal) Platelet Morphology (Normal) Target Cells (None) Tear Drop Cells (None) Ovalocytes (None) Keratocytes (None) PT (9.8-11.6) sec INR Ratio APTT (23.4-31.7) sec Sodium (136-145) meq/L Potassium (3.5-5.1) meq/L Chloride (98-107) meq/L Carbon Dioxide (21.0-32.0) meq/L Anion Gap (5-15) meq/L BUN (7-18) mg/dL Creatinine (0.50-1.00) mg/dL Estimated GFR (>89) mL/min POC Glucose 118 H (68-110) mg/dl Random Glucose (74-106) mg/dL Calcium (8.5-10.1) mg/dL Magnesium (1.5-2.5) mg/dL Iron 23 L (50-170) mcg/dL TIBC 536 H (250-450) mcg/dL % Saturation 4.3 L (20-50) % Total Bilirubin (0.2-1.0) mg/dL AST (15-37) U/L ALT (10-53) U/L Alkaline Phosphatase (45-117) U/L Troponin I (0.02-0.05) ng/mL B-Natriuretic Peptide (0-100) pg/mL Total Protein (6.4-8.2) g/dL Albumin (3.4-5.0) g/dL Lipase 33 L (73-393) U/L Ur Collection Type Urine Color (Yellw/Straw) Urine Clarity (Clear) Urine pH (5.0-8.5) Ur Specific [place] (1.002-1.035) Urine Protein (Neg-Trace) mg/dL Urine Glucose (UA) (Negative) mg/dL Urine Ketones (Negative) mg/dL Urine Occult Blood (Negative) Urine Nitrate (Negative) Urine Bilirubin (Negative) Urine Urobilinogen (Less than 2) mg/dL Ur Leukocyte Esterase (Negative) Ur Squamous Epith Cells (0-5) /hpf Ur Microscopic Review Urine Collection Time hours 05/03/18 05/04/18 05/04/18 Range/Units 20:04 06:10 06:10 CBC w Diff Slide review pending WBC 10.2 (4.0-11.0) th/mm3 RBC 4.28 (4.00-5.30) mil/mm3 Hgb 8.9 L (11.6-15.3) gm/dL Hct 29.5 L (35.0-46.0) % MCV 68.9 L (80.0-100.0) fL MCH 20.7 L (27.0-34.0) pg MCHC 30.0 L (32.0-36.0) % RDW 22.0 H (11.6-17.2) % Plt Count 503 H (150-450) th/mm3 MPV 8.0 (7.0-11.0) fL Neut % (Auto) 57.4 (16.0-70.0) % Lymph % (Auto) 23.2 (9.0-44.0) % [place] % (Auto) 16.4 H (0.0-8.0) % Eos % (Auto) 2.3 (0.0-4.0) % Baso % (Auto) 0.7 (0.0-2.0) % Neut # (Auto) 5.8 (1.8-7.7) th/mm3 Lymph # (Auto) 2.4 (1.0-4.8) th/mm3 [place] # (Auto) 1.7 H (0.0-0.9) th/mm3 Eos # (Auto) 0.2 (0.0-0.4) th/mm3 Baso # (Auto) 0.1 (0.0-0.2) th/mm3 WBC Differential . Diff Scan Auto diff confirmed Differential Comment . Platelet Estimate (Normal) Platelet Morphology (Normal) Target Cells 1+ H (None) Tear Drop Cells (None) Ovalocytes 1+ H (None) Keratocytes Occ H (None) PT (9.8-11.6) sec INR Ratio APTT (23.4-31.7) sec Sodium 139 (136-145) meq/L Potassium 3.5 (3.5-5.1) meq/L Chloride 100 (98-107) meq/L Carbon Dioxide 27.2 (21.0-32.0) meq/L Anion Gap 12 (5-15) meq/L BUN 16 (7-18) mg/dL Creatinine 1.70 H (0.50-1.00) mg/dL Estimated GFR 29 L (>89) mL/min POC Glucose 115 H (68-110) mg/dl Random Glucose 106 (74-106) mg/dL Calcium 8.4 L (8.5-10.1) mg/dL Magnesium 2.0 (1.5-2.5) mg/dL Iron (50-170) mcg/dL TIBC (250-450) mcg/dL % Saturation (20-50) % Total Bilirubin (0.2-1.0) mg/dL AST (15-37) U/L ALT (10-53) U/L Alkaline Phosphatase (45-117) U/L Troponin I (0.02-0.05) ng/mL B-Natriuretic Peptide (0-100) pg/mL Total Protein (6.4-8.2) g/dL Albumin (3.4-5.0) g/dL Lipase (73-393) U/L Ur Collection Type Urine Color (Yellw/Straw) Urine Clarity (Clear) Urine pH (5.0-8.5) Ur Specific [place] (1.002-1.035) Urine Protein (Neg-Trace) mg/dL Urine Glucose (UA) (Negative) mg/dL Urine Ketones (Negative) mg/dL Urine Occult Blood (Negative) Urine Nitrate (Negative) Urine Bilirubin (Negative) Urine Urobilinogen (Less than 2) mg/dL Ur Leukocyte Esterase (Negative) Ur Squamous Epith Cells (0-5) /hpf Ur Microscopic Review Urine Collection Time hours 05/04/18 05/04/18 05/04/18 Range/Units 07:40 11:41 15:18 CBC w Diff WBC (4.0-11.0) th/mm3 RBC (4.00-5.30) mil/mm3 Hgb (11.6-15.3) gm/dL Hct (35.0-46.0) % MCV (80.0-100.0) fL MCH (27.0-34.0) pg MCHC (32.0-36.0) % RDW (11.6-17.2) % Plt Count (150-450) th/mm3 MPV (7.0-11.0) fL Neut % (Auto) (16.0-70.0) % Lymph % (Auto) (9.0-44.0) % [place] % (Auto) (0.0-8.0) % Eos % (Auto) (0.0-4.0) % Baso % (Auto) (0.0-2.0) % Neut # (Auto) (1.8-7.7) th/mm3 Lymph # (Auto) (1.0-4.8) th/mm3 [place] # (Auto) (0.0-0.9) th/mm3 Eos # (Auto) (0.0-0.4) th/mm3 Baso # (Auto) (0.0-0.2) th/mm3 WBC Differential Diff Scan Differential Comment Platelet Estimate (Normal) Platelet Morphology (Normal) Target Cells (None) Tear Drop Cells (None) Ovalocytes (None) Keratocytes (None) PT (9.8-11.6) sec INR Ratio APTT (23.4-31.7) sec Sodium (136-145) meq/L Potassium (3.5-5.1) meq/L Chloride (98-107) meq/L Carbon Dioxide (21.0-32.0) meq/L Anion Gap (5-15) meq/L BUN 24 H (7-18) mg/dL Creatinine 2.00 H (0.50-1.00) mg/dL Estimated GFR 24 L (>89) mL/min POC Glucose 140 H 152 H (68-110) mg/dl Random Glucose (74-106) mg/dL Calcium (8.5-10.1) mg/dL Magnesium (1.5-2.5) mg/dL Iron (50-170) mcg/dL TIBC (250-450) mcg/dL % Saturation (20-50) % Total Bilirubin (0.2-1.0) mg/dL AST (15-37) U/L ALT (10-53) U/L Alkaline Phosphatase (45-117) U/L Troponin I (0.02-0.05) ng/mL B-Natriuretic Peptide (0-100) pg/mL Total Protein (6.4-8.2) g/dL Albumin (3.4-5.0) g/dL Lipase (73-393) U/L Ur Collection Type Urine Color (Yellw/Straw) Urine Clarity (Clear) Urine pH (5.0-8.5) Ur Specific [place] (1.002-1.035) Urine Protein (Neg-Trace) mg/dL Urine Glucose (UA) (Negative) mg/dL Urine Ketones (Negative) mg/dL Urine Occult Blood (Negative) Urine Nitrate (Negative) Urine Bilirubin (Negative) Urine Urobilinogen (Less than 2) mg/dL Ur Leukocyte Esterase (Negative) Ur Squamous Epith Cells (0-5) /hpf Ur Microscopic Review Urine Collection Time hours 05/04/18 Range/Units 16:37 CBC w Diff WBC (4.0-11.0) th/mm3 RBC (4.00-5.30) mil/mm3 Hgb (11.6-15.3) gm/dL Hct (35.0-46.0) % MCV (80.0-100.0) fL MCH (27.0-34.0) pg MCHC (32.0-36.0) % RDW (11.6-17.2) % Plt Count (150-450) th/mm3 MPV (7.0-11.0) fL Neut % (Auto) (16.0-70.0) % Lymph % (Auto) (9.0-44.0) % [place] % (Auto) (0.0-8.0) % Eos % (Auto) (0.0-4.0) % Baso % (Auto) (0.0-2.0) % Neut # (Auto) (1.8-7.7) th/mm3 Lymph # (Auto) (1.0-4.8) th/mm3 [place] # (Auto) (0.0-0.9) th/mm3 Eos # (Auto) (0.0-0.4) th/mm3 Baso # (Auto) (0.0-0.2) th/mm3 WBC Differential Diff Scan Differential Comment Platelet Estimate (Normal) Platelet Morphology (Normal) Target Cells (None) Tear Drop Cells (None) Ovalocytes (None) Keratocytes (None) PT (9.8-11.6) sec INR Ratio APTT (23.4-31.7) sec Sodium (136-145) meq/L Potassium (3.5-5.1) meq/L Chloride (98-107) meq/L Carbon Dioxide (21.0-32.0) meq/L Anion Gap (5-15) meq/L BUN (7-18) mg/dL Creatinine (0.50-1.00) mg/dL Estimated GFR (>89) mL/min POC Glucose 160 H (68-110) mg/dl Random Glucose (74-106) mg/dL Calcium (8.5-10.1) mg/dL Magnesium (1.5-2.5) mg/dL Iron (50-170) mcg/dL TIBC (250-450) mcg/dL % Saturation (20-50) % Total Bilirubin (0.2-1.0) mg/dL AST (15-37) U/L ALT (10-53) U/L Alkaline Phosphatase (45-117) U/L Troponin I (0.02-0.05) ng/mL B-Natriuretic Peptide (0-100) pg/mL Total Protein (6.4-8.2) g/dL Albumin (3.4-5.0) g/dL Lipase (73-393) U/L Ur Collection Type Urine Color (Yellw/Straw) Urine Clarity (Clear) Urine pH (5.0-8.5) Ur Specific [place] (1.002-1.035) Urine Protein (Neg-Trace) mg/dL Urine Glucose (UA) (Negative) mg/dL Urine Ketones (Negative) mg/dL Urine Occult Blood (Negative) Urine Nitrate (Negative) Urine Bilirubin (Negative) Urine Urobilinogen (Less than 2) mg/dL Ur Leukocyte Esterase (Negative) Ur Squamous Epith Cells (0-5) /hpf Ur Microscopic Review Urine Collection Time hours Imaging Data Radiologist's impression: Abdomen/Pelvis CT 05/03/18 11:13 CONCLUSION: 1. There are 2 abdominal wall hernias anteriorly. One above the umbilicus contains a single loop of small bowel without evidence of obstruction but it is new since March. In the anterior pelvis is additional hernia containing portions of the sigmoid colon, unchanged. 2. Fatty liver. There are bilateral thickening is identified. 3. Large hiatal hernia. Chest X-Ray 05/03/18 11:13 CONCLUSION: Cardiac/pericardial silhouette is enlarged. Correlate for pericardial effusion. Abdomen/Bladder Ultrasound 05/04/18 00:00 CONCLUSION: 1. Normal ultrasound appearance of the kidneys. There is no hydronephrosis. 2. Hepatic steatosis. ECG Data EKG Prior to Arrival: No Attestation: I personally reviewed and interpreted this ECG as follows: Interpretation: NSR 74bpm. Normal axis. Q wave III, aVF. MT interval 156ms. No significant ST elevation. Discharge Plan Discharge Disposition Patient Disposition: 30 Still Patient Discharge Details Diagnosis: CHF (congestive heart failure) Physicians Team ED Provider: Gabbie Abbott Primary Care Provider: Jeimy Fontenot Attending Provider: Anthony Davis Status ED Status: Left Department Discharge Information Discharge Date/Time: 05/03/18 16:05
[2018-05-03 11:44] LABS: Baso % (Auto) 0.3 % (0.0-2.0); Lymph # (Auto) 1.3 th/mm3 (1.0-4.8); Lymph % (Auto) 14.3 % (9.0-44.0); Mean Corpuscular HGB Conc 31.2 % (32.0-36.0); Mean Corpuscular Hemoglobin 20.9 pg (27.0-34.0); Mean Platelet Volume 7.9 fL (7.0-11.0); Mono # (Auto) 0.7 th/mm3 (0.0-0.9); Mono % (Auto) 7.5 % (0.0-8.0); Neut # (Auto) 6.8 th/mm3 (1.8-7.7); Neut % (Auto) 77.9 % (16.0-70.0); Platelet Count 497 th/mm3 (150-450); Red Blood Count 4.33 mil/mm3 (4.00-5.30); Red Cell Distribution Width 21.6 % (11.6-17.2); White Blood Count 8.8 th/mm3 (4.0-11.0)
[2018-05-03 11:45] LABS: Bilirubin,Urine Negative (Negative); Clarity,Urine Clear (Clear); Color,Urine Yellow (Yellw/Straw); Glucose,Urine (UA) 100 mg/dL (Negative); Leukocyte Esterase,Urine Negative (Negative); Nitrite,Urine Negative (Negative); PH,Urine 6.5 (5.0-8.5); Urobilinogen,Urine 0.2 mg/dL (Less than 2)
[2018-05-03 11:57] LABS: Collection Time,Urine 1105 hours
[2018-05-03 12:01] LABS: Squamous Epithelial Cell,Urine 0-5 /hpf (0-5)
[2018-05-03 12:02] LABS: Chloride 103 meq/L (98-107); Sodium 138 meq/L (136-145)
[2018-05-03 12:06] LABS: Calcium 8.3 mg/dL (8.5-10.1)
[2018-05-03 12:07] LABS: Albumin 3.2 g/dL (3.4-5.0); Anion Gap 10 meq/L (5-15); Blood Urea Nitrogen 10 mg/dL (7-18); Carbon Dioxide 25.4 meq/L (21.0-32.0); Glucose,Random 203 mg/dL (74-106)
[2018-05-03 12:10] LABS: Alanine Aminotransferase 20 U/L (10-53); Aspartate Aminotransferase 22 U/L (15-37); Glomerular Filtration Rate 72 mL/min (>89); INR 1.1 Ratio
[2018-05-03 12:11] LABS: Total Protein 7.5 g/dL (6.4-8.2)
[2018-05-03 12:13] LABS: Alkaline Phosphatase 100 U/L (45-117)
[2018-05-03 12:15] LABS: Troponin I 0.02 ng/mL (0.02-0.05)
[2018-05-03 12:25] LABS: Target Cells 1+
[2018-05-03 12:26] LABS: Ovalocytes 1+; Platelet Morphology Normal (Normal); Tear Drop Cells 1+
--- NOTE | 2018-05-03 12:55 | CT ---
EXAM DATE: 05/03/2018 12:45 PM EDT AGE/SEX: 77 years / Female INDICATIONS: Left abdominal pain. Nausea. CLINICAL DATA: This is the patient's initial encounter. Patient reports that signs and symptoms have been present for 1 day and indicates a pain score of 7/10. MEDICAL/SURGICAL HISTORY: Myocardial infarction. Cerebrovascular disease. Diabetes. Hyperten abad. CABG. RADIATION DOSE: 24.80 CTDI (mGy) ; Patient body habitus COMPARISON: [facility], CT ABDOMEN & PELVIS W/O CONTRAST, 03/30/2018. . TECHNIQUE: Multiple contiguous axial images were obtained through the abdomen. Images were obtained using multiple row detector helical technique. Using automated exposure control and adjustment of the mA and/or kV according to patient size, radiation dose was kept as low as reasonably achievable to o btain optimal diagnostic quality images. DICOM format image data is available electronically for rev iew and comparison. FINDINGS: Lower Lungs: The visualized lower lungs are clear. Liver: The liver has a homogeneously lower density consistent with fatty liver without space-occupyin g lesion. There is no dilation of the biliary tree. Spleen: Homogeneous density without enlargement. Pancreas: Unremarkable without mass or calcification except for one prominent fatty area could be a lipoma.. Kidneys: Normal in size and shape. No evidence of mass or hydronephrosis. Adrenal Glands: Unremarkable except for small nodule on the right unchanged.. Aorta: The aorta and proximal iliac vessels are grossly unremarkable without aneurysmal dilation. Bowel/Mesentery: There is a moderate size hiatal hernia. The bowel loops are grossly unremarkable. Th e cecum and sigmoid colon have a normal configuration. Suture the rectosigmoid junction without surro unding inflammation Abdominal Wall: There is a hernia in the anterior abdominal wall above the umbilicus containing I be lieve a loop of small bowel. The peritoneal defect measures 2.8 x 3.5 cm across. I do not see any dil ated small bowel but the bowel loop is clearly within the hernia new since March. There is an additional midline hernia inferiorly containing colon which is unchanged since March. Retroperitoneum: No evidence of adenopathy in the retrocrural, para-aortic, or deep pelvic regions. Bladder: Contours are smooth. Reproductive Organs: No abnormal masses or calcifications seen. Inguinal: The inguinal region is unremarkable without evidence of adenopathy. Bony Structures: Unremarkable. CONCLUSION: 1. There are 2 abdominal wall hernias anteriorly. One above the umbilicus contains a single loop of small bowel without evidence of obstruction but it is new since March. In the anterior pelvis is additional hernia containing portions of the sigmoid colon, unchanged. 2. Fatty liver. There are bilateral thickening is identified. 3. Large hiatal hernia. Electronically signed by: Kurt Ibarra MD 05/03/2018 12:54 PM EDT
[2018-05-03] MEDS ORDERED: Dextrose 50% in Water 50 ML Vial IV.PUSH PRN (13:35)
[2018-05-03] MEDS ORDERED: Naloxone Inj 0.4 MG/ML Vial IV.PUSH PRN (13:37)
[2018-05-03] MEDS ORDERED: Acetaminophen 325 MG Tablet PO PRN (13:39)
[2018-05-03] MEDS ORDERED: Bisacodyl 10 MG Supp RECTAL PRN (13:39)
[2018-05-03] MEDS: Heparin - SQ 10,000 UNITS/ML Vial SQ SCH ×3 (14:07→22:56)
--- NOTE | 2018-05-03 16:01 | P.HP ---
History of Present Illness Primary Care Physician: Jeimy Fontenot MD Chief Complaint: Shortness of breath History of Present Illness: This is a 77-year-old female patient with a known medical history of CAD with history of CABG, diabetes, hypertension and hypothyroidism who presented to the ED with complaints of shortness of breath. Patient states over the past couple days she has had increasing shortness of breath especially with activity and walking. She states she is unable to even breakfast cook without being short of breath. She has a history of CHF, actually follows with Dr. Cruz, he actually ordered for an echocardiogram last week, order for obtaining records has been placed. Patient does also admit to intermittent sweating as well as generalized weakness with activity. Patient lives at home with her . She denies any recent fever, chills, cough, dumping, nausea, vomiting, diarrhea or dysuria. She does state that her appetite has been poor, she has been unable to eat without feeling abdominal pain and full quickly. She does have a history of multiple hernias and multiple bowel surgeries including bowel resection. She follows with Dr. Rockwell, supposed to see next week. He does not use home oxygen. Does not smoke. She underwent a CABG in December of this year. Patient also presents with anemia, patient denies any recent black or bloody stools. - Diagnosis (1) Acute exacerbation of CHF (congestive heart failure) (2) Anemia Review of Systems All other systems reviewed negative except as stated in HPI PMFSH - History History Provided By: Patient - Medical History Medical History: Medical History (Last Reviewed 05/03/18 @ 16:20 by Lisa Maya) Complication of cardiac bypass Diabetes Inflammatory arthritis Myocardial infarct Osteoarthritis Stroke - Surgical History Surgical History: Surgical History (Last Reviewed 05/03/18 @ 16:20 by Lias Maya) Status post bilateral knee replacements - Family History Family History: Family History (Last Updated 05/03/18 @ 16:20 by Lisa Maya) Other Family history non-contributory - Social History I have reviewed the patient's Social History: Yes - Tobacco History Second Hand Smoke Exposure: No Smoking Status: Never smoker - Alcohol History How Often Do You Have a Drink Containing Alcohol: Never - Substance Use History Substance History: No History of Abuse - Travel History Recent Travel in the [place] Within the Last 8 Weeks: No Recent Travel Out of the Country Within the Last 8 Weeks: No - Immunization History Tetanus Immunization: Unsure Medications and Allergies Active Medications: Active Medications Acetaminophen (Tylenol) 650 mg PO Q4H PRN PRN Reason: Temp > 100.4 Hydrocodone Bitart/Acetaminophen (Edison 10/325) 1 tab PO TID PRN PRN Reason: Acute Pain Al Hydroxide/Mg Hydroxide (Milk Of Magnesia Liq) 30 ml PO Q12H PRN PRN Reason: Mild Constipation Alprazolam (Xanax) 0.25 mg PO HS [facility] Aspirin (Ecotrin) 81 mg PO DAILY [facility] Bisacodyl (Dulcolax Supp) 10 mg RECTAL DAILY PRN PRN Reason: SEVERE CONSITIPATION Budesonide/Formoterol Fumarate (Symbicort 80/4.5 Mcg Inh) 2 puff INH BID [facility] Citalopram Hydrobromide (Celexa) 40 mg PO DAILY [facility] Clonidine HCl (Catapres) 0.1 mg PO Q6H PRN PRN Reason: SEE LABEL COMMENTS Last Admin: 05/03/18 15:40 Dose: 0.1 mg Clopidogrel Bisulfate (Plavix) 75 mg PO DAILY [facility] Dextrose (D50w Vial) 50 ml IV.PUSH UNSCH PRN PRN Reason: PER HYPOGLYCEMIA PROTOCOL Enalaprilat (Vasotec Inj) 1.25 mg IV.PUSH Q6H PRN PRN Reason: SEE LABEL COMMENTS Furosemide (Lasix Inj) 40 mg IV.PUSH BID@0900,1800 [facility] Glucagon (Glucagon Inj) 1 mg OTHER PRN PRN PRN Reason: for Hypoglycemia Protocol Heparin Sodium (Porcine) (Heparin Inj) 5,000 units SQ Q8H [facility] Last Admin: 05/03/18 14:07 Dose: 5,000 units Hydralazine HCl (Apresoline) 20 mg PO BID [facility] Insulin Aspart (Novolog Insulin Correctional Sugar Inj) 0 unit SQ ACHS [facility]; Protocol Insulin Detemir (Levemir Inj) 70 unit SQ BID [facility] Isosorbide Dinitrate (Isordil) 2.5 mg PO DAILY [facility] Lactulose (Lactulose Liq) 30 ml PO DAILY PRN PRN Reason: SEVERE CONSITIPATION Levothyroxine Sodium (Synthroid) 200 mcg PO DAILY@0600 [facility] Lisinopril (Prinivil) 40 mg PO DAILY [facility] Naloxone HCl (Narcan Inj) 0.4 mg IV.PUSH UNSCH PRN PRN Reason: SEE LABEL COMMENTS Nitroglycerin (Nitrostat Sl) 0.4 mg SL Q5M PRN PRN Reason: CHEST PAIN Ondansetron HCl (Zofran Inj) 4 mg IV.PUSH Q6H PRN PRN Reason: NAUSEA OR VOMITING Sennosides (Senokot) 17.2 mg PO Q12H PRN PRN Reason: Moderate Constipation Sodium Chloride (Ns Flush) 2 ml IV.FLUSH UNSCH PRN PRN Reason: FLUSH AFTER USING IV ACCESS Sodium Chloride (Ns Flush) 2 ml IV.FLUSH BID [place] Zolpidem Tartrate (Ambien) 10 mg PO [facility] Allergies Allergy/AdvReac Type Severity Reaction Status Date / Time egg Allergy Severe DYSPNEA, Verified 05/03/18 10:47 SWELLING erythromycin base Allergy Severe HIVES, Verified 05/03/18 10:47 TROUBLE BREATHING Fish Containing Products Allergy Severe HIVES Verified 05/03/18 10:47 iodine Allergy Severe SWELLING Verified 05/03/18 10:47 mercury (elemental) Allergy Severe Anaphylaxis Verified 05/03/18 10:47 mold Allergy Severe ITCHING Verified 05/03/18 10:47 penicillin G Allergy Severe STOPS Verified 05/03/18 10:47 BREATHING potassium iodide Allergy Severe SWELLING Verified 05/03/18 10:47 povidone-iodine Allergy Severe SWELLING Verified 05/03/18 10:47 sodium iodide Allergy Severe SWELLING Verified 05/03/18 10:47 sodium iodide Allergy Severe SWELLING Verified 05/03/18 10:47 Sulfa (Sulfonamide Allergy Severe STOPS Verified 05/03/18 10:47 Antibiotics) BREATHING, "SULFA POISONING" metformin AdvReac Severe DIARRHEA, Verified 05/03/18 10:47 GASTRIC CRAMPING morphine AdvReac Unknown STATES Verified 05/03/18 10:47 MAKES HER "TOO SLEEPY" - REFUSES Home Medications Medication Instructions Recorded Confirmed Type clopidogrel 75 mg PO DAILY 02/09/18 05/03/18 History citalopram 40 mg PO DAILY 03/30/18 05/03/18 History alprazolam 0.25 mg PO HS 05/03/18 05/03/18 History aspirin [Aspir-Low] 81 mg PO DAILY 05/03/18 05/03/18 History budesonide-formoterol [Symbicort] 2 puff INHALATION BID 05/03/18 05/03/18 History hydralazine 20 mg PO BID 05/03/18 05/03/18 History hydrocodone-acetaminophen 1 tab PO TID 05/03/18 05/03/18 History insulin aspart U-100 [Novolog 1 sliding scale dose SUBCUT UD 05/03/18 05/03/18 History U-100 Insulin aspart] insulin glargine [Lantus U-100 70 unit SUBCUT BID 05/03/18 05/03/18 History Insulin] isosorbide dinitrate 3 mg PO DAILY 05/03/18 05/03/18 History levothyroxine 200 mcg PO DAILY 05/03/18 05/03/18 History quinapril 40 mg PO DAILY 05/03/18 05/03/18 History zolpidem 10 mg PO HS 05/03/18 05/03/18 History Exam Vital signs: Vital Signs 05/03/18 10:48 05/03/18 12:03 05/03/18 12:07 Temperature 98.3 F Pulse Rate 87 74 Respiratory Rate 20 20 Blood Pressure 202/87 H 191/81 H Pulse Oximetry 92 L 96 96 05/03/18 12:59 05/03/18 14:37 05/03/18 15:41 Temperature Pulse Rate 80 79 78 Respiratory Rate 24 22 24 Blood Pressure 154/82 H 190/70 H 194/70 H Pulse Oximetry 98 98 98 Intake & Output 05/02/18 05/03/18 05/03/18 18:59 06:59 18:59 Output Total 1100 / 1100 Balance -1100 / -1100 Weight 98.3 kg Output: Urine 1100 / 1100 Narrative: GENERAL: Well-developed, overweight elderly female patient on supplemental O2. SKIN: Warm and dry. No rash. HEAD: Normocephalic. Atraumatic. EYES: Pupils equal and round. No scleral icterus. No injection or drainage. ENT: No nasal bleeding or discharge. Mucous membranes pink and moist. NECK: Supple. Trachea midline. CARDIOVASCULAR: Regular rate and rhythm. S1, S2 noted. No chest pain to palpation. RESPIRATORY: No accessory muscle use. Crackles noted in bilateral posterior bases. Breath sounds equal bilaterally. GASTROINTESTINAL: Abdomen soft, non-tender, nondistended. Normoactive bowel sounds x4. MUSCULOSKELETAL: No obvious deformities. Extremities without clubbing, cyanosis. Bilateral lower extremity trace edema. NEUROLOGICAL: Awake and alert. No obvious cranial nerve deficits. Motor grossly within normal limits. 5/5 muscle strength in bilateral upper and lower extremities. Normal speech. PSYCHIATRIC: Appropriate mood and affect; insight and judgment normal. Results - Labs CBC & Chem 7: 05/03/18 11:35 05/03/18 11:35 Labs: Laboratory Results - last 24 hr 05/03/18 05/03/18 05/03/18 11:05 11:12 11:35 CBC w Diff Slide review pending WBC 8.8 RBC 4.33 Hgb 9.0 L Hct 29.0 L MCV 67.0 L MCH 20.9 L MCHC 31.2 L RDW 21.6 H Plt Count 497 H MPV 7.9 Neut % (Auto) 77.9 H Lymph % (Auto) 14.3 [place]cock % (Auto) 7.5 Eos % (Auto) 0.0 Baso % (Auto) 0.3 Neut # (Auto) 6.8 Lymph # (Auto) 1.3 [place] # (Auto) 0.7 Eos # (Auto) 0.0 Baso # (Auto) 0.0 WBC Differential . Diff Scan Auto diff confirmed Differential Comment . Platelet Estimate High H Platelet Morphology Normal Target Cells 1+ H Tear Drop Cells 1+ H Ovalocytes 1+ H PT INR APTT Sodium Potassium Chloride Carbon Dioxide Anion Gap BUN Creatinine Estimated GFR POC Glucose 213 H Random Glucose Calcium Total Bilirubin AST ALT Alkaline Phosphatase Troponin I B-Natriuretic Peptide Total Protein Albumin Lipase Ur Collection Type Clean catch Urine Color Yellow Urine Clarity Clear Urine pH 6.5 Ur Specific [place] 1.010 Urine Protein Trace Urine Glucose (UA) 100 H Urine Ketones Trace H Urine Occult Blood Negative Urine Nitrate Negative Urine Bilirubin Negative Urine Urobilinogen 0.2 Ur Leukocyte Esterase Negative Ur Squamous Epith Cells 0-5 Ur Microscopic Review Microscopic reviewed Urine Collection Time 1105 05/03/18 05/03/18 05/03/18 11:35 11:35 11:35 CBC w Diff WBC RBC Hgb Hct MCV MCH MCHC RDW Plt Count MPV Neut % (Auto) Lymph % (Auto) [place] % (Auto) Eos % (Auto) Baso % (Auto) Neut # (Auto) Lymph # (Auto) [place] # (Auto) Eos # (Auto) Baso # (Auto) WBC Differential Diff Scan Differential Comment Platelet Estimate Platelet Morphology Target Cells Tear Drop Cells Ovalocytes PT 11.0 INR 1.1 APTT 24.0 Sodium 138 Potassium 4.0 Chloride 103 Carbon Dioxide 25.4 Anion Gap 10 BUN 10 Creatinine 0.78 Estimated GFR 72 L POC Glucose Random Glucose 203 H Calcium 8.3 L Total Bilirubin 0.3 AST 22 ALT 20 Alkaline Phosphatase 100 Troponin I 0.02 B-Natriuretic Peptide 807 H Total Protein 7.5 Albumin 3.2 L Lipase Ur Collection Type Urine Color Urine Clarity Urine pH Ur Specific [place] Urine Protein Urine Glucose (UA) Urine Ketones Urine Occult Blood Urine Nitrate Urine Bilirubin Urine Urobilinogen Ur Leukocyte Esterase Ur Squamous Epith Cells Ur Microscopic Review Urine Collection Time 05/03/18 11:35 CBC w Diff WBC RBC Hgb Hct MCV MCH MCHC RDW Plt Count MPV Neut % (Auto) Lymph % (Auto) [place] % (Auto) Eos % (Auto) Baso % (Auto) Neut # (Auto) Lymph # (Auto) [place] # (Auto) Eos # (Auto) Baso # (Auto) WBC Differential Diff Scan Differential Comment Platelet Estimate Platelet Morphology Target Cells Tear Drop Cells Ovalocytes PT INR APTT Sodium Potassium Chloride Carbon Dioxide Anion Gap BUN Creatinine Estimated GFR POC Glucose Random Glucose Calcium Total Bilirubin AST ALT Alkaline Phosphatase Troponin I B-Natriuretic Peptide Total Protein Albumin Lipase 33 L Ur Collection Type Urine Color Urine Clarity Urine pH Ur Specific [place] Urine Protein Urine Glucose (UA) Urine Ketones Urine Occult Blood Urine Nitrate Urine Bilirubin Urine Urobilinogen Ur Leukocyte Esterase Ur Squamous Epith Cells Ur Microscopic Review Urine Collection Time - Imaging Impressions Abdomen/Pelvis CT 05/03/18 11:13 CONCLUSION: 1. There are 2 abdominal wall hernias anteriorly. One above the umbilicus contains a single loop of small bowel without evidence of obstruction but it is new since March. In the anterior pelvis is additional hernia containing portions of the sigmoid colon, unchanged. 2. Fatty liver. There are bilateral thickening is identified. 3. Large hiatal hernia. Chest X-Ray 05/03/18 11:13 CONCLUSION: Cardiac/pericardial silhouette is enlarged. Correlate for pericardial effusion. Caprini VTE Risk Assessment Caprini VTE Risk Assessment: Moderate/High Risk (score >= 2) Caprini Risk Assessment Model: Point Value = 1 Point Value = 2 Point Value = 3 Point Value = 5 Age 41-60 Minor surgery BMI > 25 kg/m2 Swollen legs Varicose veins or History of unexplained or recurrent spontaneous Oral contraceptives or hormone replacement Sepsis (< 1 month) Serious lung disease, including pneumonia (< 1 month) Abnormal pulmonary function Acute myocardial infarction Congestive heart failure (< 1 month) History of inflammatory bowel disease Medical patient at bed rest Age 61-74 Arthroscopic surgery Major open surgery (> 45 min) Laparoscopic surgery (> 45 min) Malignancy Confined to bed (> 72 hours) Immobilizing plaster cast Central venous access Age >= 75 History of VTE Family history of VTE Factor V Leiden Prothrombin [id number] Lupus anticoagulant Anticardiolipin antibodies Elevated serum homocysteine Heparin-induced thrombocytopenia Other congenital or acquired thrombophilia Stroke (< 1 month) Elective arthroplasty Hip, pelvis, or leg fracture Acute spinal cord injury (< 1 month) Prophylaxis Regimen: Total Risk Factor Score Risk Level Prophylaxis Regimen 0-1 Low Early ambulation 2 Moderate Order ONE of the following: *Sequential Compression Device (SCD) *Heparin 5000 units SQ BID 3-4 Higher Order ONE of the following medications: *Heparin 5000 units SQ TID *Enoxaparin/Lovenox 40 mg SQ daily (WT < 150 kg, CrCl > 30 mL/min) *Enoxaparin/Lovenox 30 mg SQ daily (WT < 150 kg, CrCl > 10-29 mL/min) *Enoxaparin/Lovenox 30 mg SQ BID (WT < 150 kg, CrCl > 30 mL/min) AND/OR *Sequential Compression Device (SCD) 5 or more Highest Order ONE of the following medications: *Heparin 5000 units SQ TID (Preferred with Epidurals) *Enoxaparin/Lovenox 40 mg SQ daily (WT < 150 kg, CrCl > 30 mL/min) *Enoxaparin/Lovenox 30 mg SQ daily (WT < 150 kg, CrCl > 10-29 mL/min) *Enoxaparin/Lovenox 30 mg SQ BID (WT < 150 kg, CrCl > 30 mL/min) AND *Sequential Compression Device (SCD) Assessment and Plan - Assessment (1) Acute exacerbation of CHF (congestive heart failure) Code(s): I50.9 - Heart failure, unspecified Status: Acute (2) Anemia Code(s): D64.9 - Anemia, unspecified Status: Acute - Plan This 77-year-old female patient with: Congestive heart failure with exacerbation, decompensated diastolic type History of CAD with CABG in December 2017 Hypertension, chronic -Patient complains of worsening shortness of breath times 2 days. BNP over 800 upon presentation. -Chest x-ray reviewed showing cardiac/pericardial silhouette is enlarged. Spoke to Dr. Lozano, patient's operations trainer, last seen patient yesterday. -Patient underwent an echocardiogram last week, adequate EF. No indication of effusion at that time. Will obtain limited ECHO exam to further evaluate. -Continue Lasix 40 mg IV BID. Monitor intake and output closely. -Patient on Plavix and aspirin at home, will continue. -Nuclear stress test was done last week as well, which was normal with no ischemia. -Continue on supplemental O2 as needed, to keep sats >92%. -Supportive care. Hypochromic, microcytic anemia -Occult stool ordered and pending. -Recheck CBC in am. Will check iron studies. -Monitor for any active bleeding. Abdominal pain -Abdominal pain in left upper quadrant x 2 days. -Abdominal/pelvis CT reviewed showing two abdominal wall hernias anteriorly as well as hiatal hernia. Patient admits to previous hernias in the past. These are stable. -Follows with Dr. Rockwell, has underwent many previous abdominal surgeries in the past including a bowel resection secondary to intussusception. -Will continue anemia work up as above. Denies any changes to his bowels. Type 2 diabetes mellitus, chronic: Accu-Chek before meals at bedtime, sliding scale, cover as needed. Hypothyroidism, chronic: Will continue home levothyroxine. DVT prophylaxis: SCDs. Heparin.
[2018-05-03] MEDS: Insulin NovoLOG Aspart Correctional Sugar Inj SQ SCH ×2 (16:44→20:12)
[2018-05-03] MEDS: ALPRAZolam 0.25 MG Tablet PO SCH (20:11)
[2018-05-03] MEDS: hydrALAZINE 10 MG Tablet PO SCH (20:12)
[2018-05-03] MEDS: Budesonide-Formoterol 80/4.5 MCG 6.9 GM Inhaler INH SCH (20:13)
[2018-05-03 20:48] LABS: % Iron Saturation 4.3 % (20-50)
[2018-05-03] MEDS ORDERED: Insulin Detemir Inj 1,000 UNIT/10 ML Vial SQ SCH (21:00)
[2018-05-04] MEDS: Heparin - SQ 10,000 UNITS/ML Vial SQ SCH ×4 (05:19→21:21)
[2018-05-04 06:46] LABS: Baso # (Auto) 0.1 th/mm3 (0.0-0.2); Baso % (Auto) 0.7 % (0.0-2.0); Eos # (Auto) 0.2 th/mm3 (0.0-0.4); Eos % (Auto) 2.3 % (0.0-4.0); Hematocrit 29.5 % (35.0-46.0); Hemoglobin 8.9 gm/dL (11.6-15.3); Lymph # (Auto) 2.4 th/mm3 (1.0-4.8); Lymph % (Auto) 23.2 % (9.0-44.0); Mean Corpuscular Hemoglobin 20.7 pg (27.0-34.0); Mean Corpuscular Volume 68.9 fL (80.0-100.0); Mono # (Auto) 1.7 th/mm3 (0.0-0.9); Mono % (Auto) 16.4 % (0.0-8.0); Neut # (Auto) 5.8 th/mm3 (1.8-7.7); Neut % (Auto) 57.4 % (16.0-70.0); Platelet Count 503 th/mm3 (150-450); Red Blood Count 4.28 mil/mm3 (4.00-5.30); White Blood Count 10.2 th/mm3 (4.0-11.0)
[2018-05-04 07:11] LABS: Potassium 3.5 meq/L (3.5-5.1)
[2018-05-04 07:14] LABS: Calcium 8.4 mg/dL (8.5-10.1)
[2018-05-04 07:15] LABS: Carbon Dioxide 27.2 meq/L (21.0-32.0)
[2018-05-04 07:41] LABS: Ovalocytes 1+; Target Cells 1+
[2018-05-04] MEDS: hydrALAZINE 10 MG Tablet PO SCH ×3 (08:37→21:13)
[2018-05-04] MEDS: Insulin NovoLOG Aspart Correctional Sugar Inj SQ SCH ×4 (08:43→21:14)
[2018-05-04] MEDS: Budesonide-Formoterol 80/4.5 MCG 6.9 GM Inhaler INH SCH ×3 (08:44→21:15)
[2018-05-04] MEDS: Insulin Detemir Inj 1,000 UNIT/10 ML Vial SQ SCH ×3 (08:52→21:13)
--- NOTE | 2018-05-04 08:57 | P.PNIM ---
Subjective Interval history: Follow-up CHF exacerbation. Patient seen and examined, lying in bed comfortably no apparent distress. Is on room air comfortably. She did have some shortness of breath when she was ambulating to the chair and bathroom this morning. Does complain of some left rib pain, states that this is been present for 3 weeks now at home as well. Worse with movement and deep breathing. No weakness. Vital signs are stable. Afebrile. Unfortunately patient has some acute kidney injury overnight, creatinine 1.7 today. Likely secondary to the Lasix. Will drop down to daily 40 mg IV. Check an ultrasound. Patient is having no symptoms. Urinating well. Continue to follow. Physical Exam Vital signs: Vital Signs 05/03/18 10:48 05/03/18 12:03 05/03/18 12:07 Temperature 98.3 F Pulse Rate 87 74 Respiratory Rate 20 20 Blood Pressure 202/87 H 191/81 H Pulse Oximetry 92 L 96 96 05/03/18 12:59 05/03/18 14:37 05/03/18 15:41 Temperature Pulse Rate 80 79 78 Respiratory Rate 24 22 24 Blood Pressure 154/82 H 190/70 H 194/70 H Pulse Oximetry 98 98 98 05/03/18 19:02 05/03/18 19:30 05/03/18 20:00 Temperature 98.3 F Pulse Rate 84 Respiratory Rate 20 Blood Pressure 174/73 H 196/85 H Pulse Oximetry 97 97 05/04/18 00:00 05/04/18 04:00 Temperature 97.7 F 98.1 F Pulse Rate 24 L 73 Respiratory Rate 20 20 Blood Pressure 100/52 L 116/56 L Pulse Oximetry 92 L 92 L Intake & Output 05/03/18 05/04/18 05/04/18 18:59 06:59 18:59 Intake Total 500 / 500 360 / 360 Output Total 1100 / 1100 Balance -600 / -600 360 / 360 Weight 98.3 kg 95.2 kg Intake: Oral 500 / 500 360 / 360 Output: Urine 1100 / 1100 Other: # Voids 4 Narrative: GENERAL: Well-developed, overweight elderly female patient on room air in no apparent distress. SKIN: Warm and dry. No rash. HEAD: Normocephalic. Atraumatic. EYES: Pupils equal and round. No scleral icterus. No injection or drainage. ENT: No nasal bleeding or discharge. Mucous membranes pink and moist. NECK: Supple. Trachea midline. CARDIOVASCULAR: Regular rate and rhythm. S1, S2 noted. No chest pain to palpation. RESPIRATORY: No accessory muscle use. Crackles noted in bilateral posterior bases. Breath sounds equal bilaterally. GASTROINTESTINAL: Abdomen soft, non-tender, nondistended. Normoactive bowel sounds x4. MUSCULOSKELETAL: No obvious deformities. Extremities without clubbing, cyanosis. Bilateral lower extremity trace edema. NEUROLOGICAL: Awake and alert. No obvious cranial nerve deficits. Motor grossly within normal limits. 5/5 muscle strength in bilateral upper and lower extremities. Normal speech. PSYCHIATRIC: Appropriate mood and affect; insight and judgment normal. Results - Labs CBC & Chem 7: 05/04/18 06:10 05/04/18 06:10 Laboratory Results - last 24 hr 05/03/18 05/03/18 05/03/18 11:05 11:12 11:35 CBC w Diff Slide review pending WBC 8.8 RBC 4.33 Hgb 9.0 L Hct 29.0 L MCV 67.0 L MCH 20.9 L MCHC 31.2 L RDW 21.6 H Plt Count 497 H MPV 7.9 Neut % (Auto) 77.9 H Lymph % (Auto) 14.3 [place] % (Auto) 7.5 Eos % (Auto) 0.0 Baso % (Auto) 0.3 Neut # (Auto) 6.8 Lymph # (Auto) 1.3 [place] # (Auto) 0.7 Eos # (Auto) 0.0 Baso # (Auto) 0.0 WBC Differential . Diff Scan Auto diff confirmed Differential Comment . Platelet Estimate High H Platelet Morphology Normal Target Cells 1+ H Tear Drop Cells 1+ H Ovalocytes 1+ H Keratocytes PT INR APTT Sodium Potassium Chloride Carbon Dioxide Anion Gap BUN Creatinine Estimated GFR POC Glucose 213 H Random Glucose Calcium Magnesium Iron TIBC % Saturation Total Bilirubin AST ALT Alkaline Phosphatase Troponin I B-Natriuretic Peptide Total Protein Albumin Lipase Ur Collection Type Clean catch Urine Color Yellow Urine Clarity Clear Urine pH 6.5 Ur Specific [place] 1.010 Urine Protein Trace Urine Glucose (UA) 100 H Urine Ketones Trace H Urine Occult Blood Negative Urine Nitrate Negative Urine Bilirubin Negative Urine Urobilinogen 0.2 Ur Leukocyte Esterase Negative Ur Squamous Epith Cells 0-5 Ur Microscopic Review Microscopic reviewed Urine Collection Time 1105 05/03/18 05/03/18 05/03/18 11:35 11:35 11:35 CBC w Diff WBC RBC Hgb Hct MCV MCH MCHC RDW Plt Count MPV Neut % (Auto) Lymph % (Auto) [place] % (Auto) Eos % (Auto) Baso % (Auto) Neut # (Auto) Lymph # (Auto) [place] # (Auto) Eos # (Auto) Baso # (Auto) WBC Differential Diff Scan Differential Comment Platelet Estimate Platelet Morphology Target Cells Tear Drop Cells Ovalocytes Keratocytes PT 11.0 INR 1.1 APTT 24.0 Sodium 138 Potassium 4.0 Chloride 103 Carbon Dioxide 25.4 Anion Gap 10 BUN 10 Creatinine 0.78 Estimated GFR 72 L POC Glucose Random Glucose 203 H Calcium 8.3 L Magnesium Iron TIBC % Saturation Total Bilirubin 0.3 AST 22 ALT 20 Alkaline Phosphatase 100 Troponin I 0.02 B-Natriuretic Peptide 807 H Total Protein 7.5 Albumin 3.2 L Lipase Ur Collection Type Urine Color Urine Clarity Urine pH Ur Specific [place] Urine Protein Urine Glucose (UA) Urine Ketones Urine Occult Blood Urine Nitrate Urine Bilirubin Urine Urobilinogen Ur Leukocyte Esterase Ur Squamous Epith Cells Ur Microscopic Review Urine Collection Time 05/03/18 05/03/18 05/03/18 11:35 11:35 16:36 CBC w Diff WBC RBC Hgb Hct MCV MCH MCHC RDW Plt Count MPV Neut % (Auto) Lymph % (Auto) [place] % (Auto) Eos % (Auto) Baso % (Auto) Neut # (Auto) Lymph # (Auto) [place] # (Auto) Eos # (Auto) Baso # (Auto) WBC Differential Diff Scan Differential Comment Platelet Estimate Platelet Morphology Target Cells Tear Drop Cells Ovalocytes Keratocytes PT INR APTT Sodium Potassium Chloride Carbon Dioxide Anion Gap BUN Creatinine Estimated GFR POC Glucose 118 H Random Glucose Calcium Magnesium Iron 23 L TIBC 536 H % Saturation 4.3 L Total Bilirubin AST ALT Alkaline Phosphatase Troponin I B-Natriuretic Peptide Total Protein Albumin Lipase 33 L Ur Collection Type Urine Color Urine Clarity Urine pH Ur Specific [place] Urine Protein Urine Glucose (UA) Urine Ketones Urine Occult Blood Urine Nitrate Urine Bilirubin Urine Urobilinogen Ur Leukocyte Esterase Ur Squamous Epith Cells Ur Microscopic Review Urine Collection Time 05/03/18 05/04/18 05/04/18 20:04 06:10 06:10 CBC w Diff Slide review pending WBC 10.2 RBC 4.28 Hgb 8.9 L Hct 29.5 L MCV 68.9 L MCH 20.7 L MCHC 30.0 L RDW 22.0 H Plt Count 503 H MPV 8.0 Neut % (Auto) 57.4 Lymph % (Auto) 23.2 [place] % (Auto) 16.4 H Eos % (Auto) 2.3 Baso % (Auto) 0.7 Neut # (Auto) 5.8 Lymph # (Auto) 2.4 [place] # (Auto) 1.7 H Eos # (Auto) 0.2 Baso # (Auto) 0.1 WBC Differential . Diff Scan Auto diff confirmed Differential Comment . Platelet Estimate Platelet Morphology Target Cells 1+ H Tear Drop Cells Ovalocytes 1+ H Keratocytes Occ H PT INR APTT Sodium 139 Potassium 3.5 Chloride 100 Carbon Dioxide 27.2 Anion Gap 12 BUN 16 Creatinine 1.70 H Estimated GFR 29 L POC Glucose 115 H Random Glucose 106 Calcium 8.4 L Magnesium 2.0 Iron TIBC % Saturation Total Bilirubin AST ALT Alkaline Phosphatase Troponin I B-Natriuretic Peptide Total Protein Albumin Lipase Ur Collection Type Urine Color Urine Clarity Urine pH Ur Specific [place] Urine Protein Urine Glucose (UA) Urine Ketones Urine Occult Blood Urine Nitrate Urine Bilirubin Urine Urobilinogen Ur Leukocyte Esterase Ur Squamous Epith Cells Ur Microscopic Review Urine Collection Time 05/04/18 07:40 CBC w Diff WBC RBC Hgb Hct MCV MCH MCHC RDW Plt Count MPV Neut % (Auto) Lymph % (Auto) [place] % (Auto) Eos % (Auto) Baso % (Auto) Neut # (Auto) Lymph # (Auto) [place] # (Auto) Eos # (Auto) Baso # (Auto) WBC Differential Diff Scan Differential Comment Platelet Estimate Platelet Morphology Target Cells Tear Drop Cells Ovalocytes Keratocytes PT INR APTT Sodium Potassium Chloride Carbon Dioxide Anion Gap BUN Creatinine Estimated GFR POC Glucose 140 H Random Glucose Calcium Magnesium Iron TIBC % Saturation Total Bilirubin AST ALT Alkaline Phosphatase Troponin I B-Natriuretic Peptide Total Protein Albumin Lipase Ur Collection Type Urine Color Urine Clarity Urine pH Ur Specific [place] Urine Protein Urine Glucose (UA) Urine Ketones Urine Occult Blood Urine Nitrate Urine Bilirubin Urine Urobilinogen Ur Leukocyte Esterase Ur Squamous Epith Cells Ur Microscopic Review Urine Collection Time - Imaging Impressions Abdomen/Pelvis CT 05/03/18 11:13 CONCLUSION: 1. There are 2 abdominal wall hernias anteriorly. One above the umbilicus contains a single loop of small bowel without evidence of obstruction but it is new since March. In the anterior pelvis is additional hernia containing portions of the sigmoid colon, unchanged. 2. Fatty liver. There are bilateral thickening is identified. 3. Large hiatal hernia. Chest X-Ray 05/03/18 11:13 CONCLUSION: Cardiac/pericardial silhouette is enlarged. Correlate for pericardial effusion. Assessment and Plan - Assessment (1) Acute exacerbation of CHF (congestive heart failure) Code(s): I50.9 - Heart failure, unspecified Status: Acute (2) Anemia Code(s): D64.9 - Anemia, unspecified Status: Acute - Plan This 77-year-old female patient with: Congestive heart failure with exacerbation, decompensated diastolic type History of CAD with CABG in December 2017 Hypertension, chronic -Patient complains of worsening shortness of breath times 2 days. BNP over 800 upon presentation. -Chest x-ray reviewed showing cardiac/pericardial silhouette is enlarged. Spoke to Dr. Lozano, patient's business analyst project manager, last seen patient 2 days ago. -Patient underwent an echocardiogram last week, adequate EF. No indication of effusion at that time. Will obtain limited ECHO exam to further evaluate. Pending. -Placed on Lasix 40 mg IV BID. Monitor intake and output closely. Negative fluid balance noted. Will decrease to Lasix 40 mg IV daily. -Patient on Plavix and aspirin at home, will continue. -Nuclear stress test was done last week as well, which was normal with no ischemia. -Continue on supplemental O2 as needed, to keep sats >92%. -Supportive care. Acute kidney injury -Patient presented with normal creatinine, unfortunately overnight patient's creatinine 1.7. Secondary to Lasix. Will decrease dose. -Check ultrasound kidneys. -Patient is asymptomatic, adequate output. No symptoms. We will continue to monitor. -Check BMP in a.m. If no improvement will need to consult nephrology. Hypochromic, microcytic anemia -Occult stool ordered and pending. -Hemoglobin stable overnight. Iron studies showing decrease in iron. Will add supplementation. -Monitor for any active bleeding. No active bleeding. Abdominal pain -Abdominal pain in left upper quadrant x 2 days as well as left rib pain times 2 weeks. -Abdominal/pelvis CT reviewed showing two abdominal wall hernias anteriorly as well as hiatal hernia. Patient admits to previous hernias in the past. These are stable. -Follows with Dr. Rockwell, has underwent many previous abdominal surgeries in the past including a bowel resection secondary to intussusception. -Will continue anemia work up as above. Denies any changes to his bowels. -Patient states that she has had left rib pain is well times 2 weeks. Supportive care. Unable to give NSAID at this time due to elevated creatinine. Follow. Type 2 diabetes mellitus, chronic: Accu-Chek before meals at bedtime, sliding scale, cover as needed. Decrease Levemir dose today. Hypothyroidism, chronic: Will continue home levothyroxine. DVT prophylaxis: SCDs. Heparin. Discharge Planning: Awaiting clinical improvement. Kidney function declined, work up in progress.
[2018-05-04] MEDS ORDERED: Lisinopril 20 MG Tablet PO SCH (09:00)
--- NOTE | 2018-05-04 14:10 | US ---
EXAM DATE: 05/04/2018 2:06 PM EDT AGE/SEX: 77 years / Female INDICATIONS: Increased BUN/Creatnine. CLINICAL DATA: This is the patient's initial encounter. Patient reports that signs and symptoms have been present for 1 day and indicates a pain score of 0/10. MEDICAL/SURGICAL HISTORY: . Diabetes. Arthritis. Myocardial infarction. Osteoarthritis. Stroke. . Cardiac bypass. Bilateral knee replacements. COMPARISON: [facility], CT ABDOMEN & PELVIS W/O CONTRAST, 05/03/2018. . MEASUREMENTS: Right Kidney:__9.1 x 4.9 x 5.5 cm Left Kidney:__9.8 x 5.8 x 5.6 cm FINDINGS: Right Kidney: Normal echotexture and cortical thickness. No mass or hydronephrosis. Left Kidney: Normal echotexture and cortical thickness. No mass or hydronephrosis. Bladder: Decompressed. Not well evaluated. Other: There is hepatic steatosis. CONCLUSION: 1. Normal ultrasound appearance of the kidneys. There is no hydronephrosis. 2. Hepatic steatosis. Electronically signed by: Dre Gandhi MD 05/04/2018 2:08 PM EDT
--- NOTE | 2018-05-04 19:07 | ECHRPT ---
Indication: Heart Failure CONCLUSIONS Very technically difficult study. The left ventricular systolic function is low normal with an estimated ejection fraction in the rang e of 50- 55%. Mild concentric left ventricular hypertrophy. No doppler/color flow done to evaluate valves BP: / HR: Rhythm: MEASUREMENTS (Male / Female) Normal Values Technical Quality:Very technically difficult study 2D ECHO LV Diastolic Diameter PLAX 4.9 cm 4.2 - 5.9 / 3.9 - 5.3 cm LV Systolic Diameter PLAX 3.8 cm IVS Diastolic Thickness 1.2 cm 0.6 - 1.0 / 0.6 - 0.9 cm LVPW Diastolic Thickness 1.2 cm 0.6 - 1.0 / 0.6 - 0.9 cm LV Relative Wall Thickness 0.5 RV Internal Dim ED PLAX 3.1 cm Aortic Root Diameter 3.0 cm LA Systolic Diameter LX 4.0 cm 3.0 - 4.0 / 2.7 - 3.8 cm FINDINGS LEFT VENTRICLE Normal left ventricular size. Mild concentric left ventricular hypertrophy. The left ventricular systolic function is low normal with an estimated ejection fraction in the rang e of 50- 55%. There was limited left ventricular wall motion assessment due to poor endocardial visualization. RIGHT VENTRICLE Grossly normal LEFT ATRIUM The left atrial size is mildly dilated. RIGHT ATRIUM The right atrial size is normal. ATRIAL SEPTUM Normal atrial septal thickness. AORTA The aortic root and proximal ascending aorta are not well visualized. MITRAL VALVE Grossly normal No doppler/color flow done to evaluate valve. AORTIC VALVE Trileaflet aortic valve. No aortic valve stenosis. TRICUSPID VALVE Grossly normal No doppler/color flow to evaluate valve PULMONARY VALVE The pulmonary valve is not well visualized. PERICARDIUM No pericardial effusion. Isidoro Peña DO (Electronically Signed) Final Date:04 May 2018 19:06
--- NOTE | 2018-05-04 19:23 | ECG ---
Date Performed: 05/03/2018 Time Performed: 11:46:52 PTAGE: 77 years EKG: Sinus rhythm POSSIBLE INFERIOR MYOCARDIAL INFARCTION Since the previous tracing, no significant change noted ABNO RMAL ECG PREVIOUS TRACING : 02/09/2018 20.58 DOCTOR: Norman Majano Interpretating Date/Time 05/04/2018 19:22:25
[2018-05-04] MEDS: ALPRAZolam 0.25 MG Tablet PO SCH ×2 (19:47→21:15)
[2018-05-05] MEDS: Heparin - SQ 10,000 UNITS/ML Vial SQ SCH (05:17)
[2018-05-05] MEDS: Insulin NovoLOG Aspart Correctional Sugar Inj SQ SCH (07:52)
--- NOTE | 2018-05-05 08:08 | P.PNIM ---
Physical Exam Vital signs: Vital Signs 05/04/18 09:10 05/04/18 12:00 05/04/18 16:00 Temperature 97.0 F L 97.6 F Pulse Rate 73 70 Respiratory Rate 17 18 Blood Pressure 125/54 L 125/53 L Pulse Oximetry 97 96 94 L 05/04/18 20:00 05/04/18 20:25 05/05/18 00:00 Temperature 99.2 F 97.8 F Pulse Rate 71 85 Respiratory Rate 18 18 Blood Pressure 138/70 107/49 L Pulse Oximetry 93 L 94 L 95 05/05/18 04:00 Temperature 98.1 F Pulse Rate 73 Respiratory Rate 18 Blood Pressure 112/49 L Pulse Oximetry 95 Intake & Output 05/04/18 05/05/18 05/05/18 18:59 06:59 18:59 Intake Total 1560 / 1560 480 / 480 Balance 1560 / 1560 480 / 480 Weight 95.3 kg Intake: Oral 1560 / 1560 480 / 480 Other: # Voids 2 3 # Bowel Movements 0 Results - Labs CBC & Chem 7: 05/04/18 06:10 05/04/18 15:18 Laboratory Results - last 24 hr 05/04/18 05/04/18 05/04/18 11:41 15:18 16:37 BUN 24 H Creatinine 2.00 H Estimated GFR 24 L POC Glucose 152 H 160 H 05/04/18 05/05/18 19:40 07:49 BUN Creatinine Estimated GFR POC Glucose 182 H 128 H - Imaging Impressions Abdomen/Bladder Ultrasound 05/04/18 00:00 CONCLUSION: 1. Normal ultrasound appearance of the kidneys. There is no hydronephrosis. 2. Hepatic steatosis. Assessment and Plan - Assessment (1) Acute exacerbation of CHF (congestive heart failure) Code(s): I50.9 - Heart failure, unspecified Status: Acute (2) Anemia Code(s): D64.9 - Anemia, unspecified Status: Acute - Plan This 77-year-old female patient with: Congestive heart failure with exacerbation, decompensated diastolic type History of CAD with CABG in December 2017 Hypertension, chronic -Patient complains of worsening shortness of breath times 2 days. BNP over 800 upon presentation. -Chest x-ray reviewed showing cardiac/pericardial silhouette is enlarged. Spoke to Dr. Lozano, patient's attache, last seen patient 2 days ago. -Patient underwent an echocardiogram last week, adequate EF. No indication of effusion at that time. Will obtain limited ECHO exam to further evaluate. Pending. -Placed on Lasix 40 mg IV BID. Monitor intake and output closely. Negative fluid balance noted. Will decrease to Lasix 40 mg IV daily. -Patient on Plavix and aspirin at home, will continue. -Nuclear stress test was done last week as well, which was normal with no ischemia. -Continue on supplemental O2 as needed, to keep sats >92%. -Supportive care. Acute kidney injury -Patient presented with normal creatinine, unfortunately overnight patient's creatinine 1.7. Secondary to Lasix. Will decrease dose. -Check ultrasound kidneys. -Patient is asymptomatic, adequate output. No symptoms. We will continue to monitor. -Check BMP in a.m. If no improvement will need to consult nephrology. Hypochromic, microcytic anemia -Occult stool ordered and pending. -Hemoglobin stable overnight. Iron studies showing decrease in iron. Will add supplementation. -Monitor for any active bleeding. No active bleeding. Abdominal pain -Abdominal pain in left upper quadrant x 2 days as well as left rib pain times 2 weeks. -Abdominal/pelvis CT reviewed showing two abdominal wall hernias anteriorly as well as hiatal hernia. Patient admits to previous hernias in the past. These are stable. -Follows with Dr. Rockwell, has underwent many previous abdominal surgeries in the past including a bowel resection secondary to intussusception. -Will continue anemia work up as above. Denies any changes to his bowels. -Patient states that she has had left rib pain is well times 2 weeks. Supportive care. Unable to give NSAID at this time due to elevated creatinine. Follow. Type 2 diabetes mellitus, chronic: Accu-Chek before meals at bedtime, sliding scale, cover as needed. Decrease Levemir dose today. Hypothyroidism, chronic: Will continue home levothyroxine. DVT prophylaxis: SCDs. Heparin. Discharge Planning: Awaiting clinical improvement. Kidney function declined, work up in progress.
[2018-05-05 08:25] VITALS: RESP 20
[2018-05-05] MEDS: Insulin Detemir Inj 1,000 UNIT/10 ML Vial SQ SCH (08:27)
[2018-05-05] MEDS: hydrALAZINE 10 MG Tablet PO SCH (08:28)
[2018-05-05] MEDS: Budesonide-Formoterol 80/4.5 MCG 6.9 GM Inhaler INH SCH (08:28)
[2018-05-05 08:49] LABS: Potassium 3.7 meq/L (3.5-5.1)
[2018-05-05 08:53] LABS: Calcium 8.4 mg/dL (8.5-10.1); Carbon Dioxide 29.1 meq/L (21.0-32.0)
[2018-05-05] MEDS ORDERED: Ferrous Sulfate 325 MG Tablet PO SCH (09:00)
--- NOTE | 2018-05-05 10:48 | P.DS ---
Date of admission: 05/03/18 13:36 Primary care physician: Jeimy Fontenot MD Anticipated date of discharge: 05/05/18 Brief History from admission: This is a 77-year-old female patient with a known medical history of CAD with history of CABG, diabetes, hypertension and hypothyroidism who presented to the ED with complaints of shortness of breath. Patient states over the past couple days she has had increasing shortness of breath especially with activity and walking. 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 She has a history of CHF, actually follows with Dr. Cruz, he actually ordered for an echocardiogram last week, order for obtaining records has been placed. Patient does also admit to intermittent sweating as well as generalized weakness with activity. Patient lives at home with her . She denies any recent fever, chills, cough, dumping, nausea, vomiting, diarrhea or dysuria. She does state that her appetite has been poor, she has been unable to eat without feeling abdominal pain and full quickly. She does have a history of multiple hernias and multiple bowel surgeries including bowel resection. She follows with Dr. Rockwell, supposed to see next week. He does not use home oxygen. Does not smoke. She underwent a CABG in December of this year. Patient also presents with anemia, patient denies any recent black or bloody stools. Patient update on day of discharge: Follow-up CHF exacerbation and elevated BUN/creatinine. Patient seen and examined, lying in bed comfortably in no apparent distress. She states she slept well. Denies any further shortness of breath. She is breathing comfortably on room air. Improvement seen in her BUN and creatinine. Diuresing well. Will discharge home to follow-up with PCP. Obtain labs to assure resolution of acute kidney injury. Patient denies any chest pain. Has been eating well without any nausea or vomiting. She does admit to some left rib pain, this has improved. Will encourage supportive care with heat therapy. Limit NSAID use. And rest. Patient is understanding at this time is stable to go home. DS: Diagnosis - Discharge Diagnosis (1) Acute exacerbation of CHF (congestive heart failure) Status: Acute (2) Anemia Status: Acute DS: Medications - Discharge Medications Prescriptions: ferrous sulfate [FeroSul] 325 mg PO DAILY #30 tab furosemide [Lasix] 40 mg PO DAILY 30 Days #30 tab hydrocodone-acetaminophen 1 tab PO TID #6 tab ondansetron [Zofran ODT] 4 mg PO Q6-8H PRN 12 Days tab PRN Reason: Nausea And Vomiting potassium chloride [Klor-Con 8] 8 meq PO DAILY 30 Days #30 tab DS: Summary Hospital Course: This 77-year-old female patient presented to the ED with complaints of worsening shortness of breath times 2 days. Patient has a history of congestive heart failure presented with exacerbation diastolic. She does have history of CAD and CABG in December 2017 as well as chronic hypertension. BNP over 800 upon presentation. Chest x-ray showing cardiac/pericardial silhouette is enlarged. Spoke to Dr. 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 Patient underwent an echocardiogram last week, adequate EF. No indication of effusion at that time. Limited echo done in hospital, no significant findings. She was placed on Lasix 40 mg twice daily, this was decreased to 40 daily. Diuresed well. Patient continued on Plavix and aspirin from home. Per deicer repairer patient underwent a nuclear stress test last week which was normal with no ischemia. Her oxygen supplementation was weaned to room air. Patient did sustain acute kidney injury, creatinine 2.0 during hospitalization and decline upon discharge. This was likely secondary to diuretics as well as CHF exacerbation. It was recommended that patient follow-up with PCP to obtain labs to assure resolution of acute kidney injury. Ultrasound of kidneys was done which was unremarkable. Adequate output noted. Patient also had some hypochromic microcytic anemia occult blood was negative. Hemoglobin stable. Iron studies did show a decrease in iron, added supplementation patient will follow up with PCP. No active bleeding. Left upper quadrant pain resolved although patient does complain of left rib pain, this was reproducible on exam, abdominal/pelvis CT did show 2 abdominal wall hernias as well as a hiatal hernia. She does have history of hernias in the past and these are all stable. She does follow with Dr. Rockwell, encourage patient to follow-up with him, last colonoscopy was a couple months ago which was reportedly unremarkable. Patient has a history of type 2 diabetes which was stable during hospitalization. I did decrease her Levemir dose to 35 units subcu twice daily, she came in with a prescription of 75 units twice daily, patient's blood sugars did not tolerate this much of a dose of insulin. Will have patient follow-up with PCP to manage. Continued on home levothyroxine for hypothyroidism. Patient was stabilized on day of discharge and encouraged follow-up PCP. Activity as tolerated. Heart healthy diet. Avoid salty and high sodium foods. Fluid restriction 1500 mL's. Prescriptions as ordered on discharge plan. - Time Spent with Patient Total time spent providing and/or coordinating discharge services: Greater than 30 minutes Exam Vital signs: Vital Signs 05/04/18 12:00 05/04/18 16:00 05/04/18 20:00 Temperature 97.0 F L 97.6 F 99.2 F Pulse Rate 73 70 71 Respiratory Rate 17 18 18 Blood Pressure 125/54 L 125/53 L 138/70 Pulse Oximetry 96 94 L 93 L 05/04/18 20:25 05/05/18 00:00 05/05/18 04:00 Temperature 97.8 F 98.1 F Pulse Rate 85 73 Respiratory Rate 18 18 Blood Pressure 107/49 L 112/49 L Pulse Oximetry 94 L 95 95 05/05/18 08:00 Temperature 98.1 F Pulse Rate 89 Respiratory Rate 20 Blood Pressure 160/60 H Pulse Oximetry 90 L Intake & Output 05/04/18 05/05/18 05/05/18 18:59 06:59 18:59 Intake Total 1560 / 1560 480 / 480 Balance 1560 / 1560 480 / 480 Weight 95.3 kg Intake: Oral 1560 / 1560 480 / 480 Other: # Voids 2 3 # Bowel Movements 0 Narrative: GENERAL: Well-developed, overweight elderly female patient on room air in no apparent distress. SKIN: Warm and dry. No rash. HEAD: Normocephalic. Atraumatic. EYES: Pupils equal and round. No scleral icterus. No injection or drainage. ENT: No nasal bleeding or discharge. Mucous membranes pink and moist. NECK: Supple. Trachea midline. CARDIOVASCULAR: Regular rate and rhythm. S1, S2 noted. No chest pain to palpation. RESPIRATORY: No accessory muscle use. Clear breath sounds. Breath sounds equal bilaterally. GASTROINTESTINAL: Abdomen soft, non-tender, nondistended. Normoactive bowel sounds x4. MUSCULOSKELETAL: No obvious deformities. Extremities without clubbing, cyanosis. Edema improved. Pain to palpation in left rib area. NEUROLOGICAL: Awake and alert. No obvious cranial nerve deficits. Motor grossly within normal limits. 5/5 muscle strength in bilateral upper and lower extremities. Normal speech. PSYCHIATRIC: Appropriate mood and affect; insight and judgment normal. Results Procedures completed during hospitalization: See above. Labs on day of discharge: Labs from last 24 hours 05/05/18 05/05/18 05/05/18 08:26 08:25 07:49 Sodium 138 Potassium 3.7 Chloride 99 Carbon Dioxide 29.1 Anion Gap 10 BUN 29 H Creatinine 1.40 H Estimated GFR 36 L POC Glucose 128 H Random Glucose 137 H Calcium 8.4 L Urine Eosinophils Pending 05/04/18 05/04/18 05/04/18 19:40 16:37 15:18 Sodium Potassium Chloride Carbon Dioxide Anion Gap BUN 24 H Creatinine 2.00 H Estimated GFR 24 L POC Glucose 182 H 160 H Random Glucose Calcium Urine Eosinophils 05/04/18 11:41 Sodium Potassium Chloride Carbon Dioxide Anion Gap BUN Creatinine Estimated GFR POC Glucose 152 H Random Glucose Calcium Urine Eosinophils - Impressions ITS Impressions Abdomen/Pelvis CT 05/03/18 11:13 CONCLUSION: 1. There are 2 abdominal wall hernias anteriorly. One above the umbilicus contains a single loop of small bowel without evidence of obstruction but it is new since March. In the anterior pelvis is additional hernia containing portions of the sigmoid colon, unchanged. 2. Fatty liver. There are bilateral thickening is identified. 3. Large hiatal hernia. Chest X-Ray 05/03/18 11:13 CONCLUSION: Cardiac/pericardial silhouette is enlarged. Correlate for pericardial effusion. Abdomen/Bladder Ultrasound 05/04/18 00:00 CONCLUSION: 1. Normal ultrasound appearance of the kidneys. There is no hydronephrosis. 2. Hepatic steatosis. Discharge Plan - Discharge Disposition Patient Disposition: Discharge Home - Discharge Condition Condition: Stable - Discharge Order Discharge Orders: Discharge Order (Routine); Ordered 05/05/18 Ordered By: Lisa Maya - Discharge Details Anticipated Discharge Date: 05/05/18 - Physicians Team Primary Care Provider: Jeimy Fontenot Attending Provider: Anthony Davis
[2018-05-05 12:52] VITALS: BP 118/56; PULSE 71; TEMP 97.9; O2SAT 95
== END 2018-05-05 12:55 | disposition home or self-care (01) ==
LOC: PHED 10:46 → INTOOBSV 13:36 → PHEDA 13:36 → PH3 16:03
PROVIDERS: ADMIT Internal Medicine; ATTEND Internal Medicine